=== PATIENT | male | born 1940 | race Caucasian/White ===

== ENCOUNTER 2017-07-17 00:45 | Inpatient (IN) | payer MEDICARE, SELFPAY ==
[2017-07-17] VITALS (12 sets, daily range): BP systolic 137–164; BP diastolic 69–92; PULSE 86–110; RESP 20–25; TEMP 35.8–37; O2SAT 85–96; BMI 44.6; BMI 43.9
--- NOTE | 2017-07-17 00:59 | XR_ITS ---
XR chest 2V HISTORY: ITS.REASON: SOA ORDERING PHYSICIAN: Armani Mathews MD PATIENT AGE: 77 years COMPARISON: None available FINDINGS: There is cardiomegaly with pulmonary venous congestion and perihilar and lower lobe alveolar opacification consistent with CHF with pulmonary edema and/or pneumonia. There is a small right pleural effusion. Decreased density is present involving the lateral aspect of left ninth rib may be due to a lytic lesion versus artifact from the overlying mixed density within the lungs. Rib detail study suggested when patient can tolerate. Hyperdensity is noted involving the right scapular spine suggesting a blastic focus. Does the patient have a primary cancer? There is some increased density in the left suprahilar region but may be related to overlying vessels. Follow-up is recommended. IMPRESSION: 1. Congestive heart failure with pulmonary edema with bilateral lower lobe alveolar disease which may be due to edema and/or pneumonia and small effusion on the right. 2. Possible metastatic disease with suggestion of a blastic focus of the right scapula superiorly and question of a lytic lesion involving the left ninth rib. 3. Possible left suprahilar mass.
[2017-07-17 01:18] LABS: Basophils % 0.2 % (0.1-2.0); Eosinophils # 0.2 K/mm3 (0.0-0.4); Eosinophils % 2.2 % (0.1-12.0); Hematocrit 37.4 % (42.0-52.0); Hemoglobin 10.8 g/dL (14.1-18.0); Lymphocytes # 0.9 K/mm3 (0.7-4.5); Lymphocytes % 9.6 K/mm3 (10-50); Mean Corpuscular HGB Conc 28.8 g/dL (31.8-35.4); Mean Corpuscular Hemoglobin 22.6 pg (27.0-31.2); Mean Corpuscular Volume 78.5 fl (80-94); Mean Platelet Volume 8.4 fl (7.4-10.4); Monocytes # 0.4 K/mm3 (0.1-1.0); Monocytes % 4.3 % (1.7-9.3); Neutrophils # 7.5 K/mm3 (1.8-7.8); Neutrophils % 83.8 % (37.0-80.0); Platelet Count 270 K/mm3 (142-424); Red Blood Count 4.76 M/mm3 (4.60-6.20); Red Cell Distribution Width 16.2 % (11.5-17.5); White Blood Count 8.9 K/mm3 (4.8-10.8)
[2017-07-17 01:29] LABS: Alanine Aminotransferase 20 U/L (12-78); Albumin Level 3.4 gm/dL (3.4-5.0); Albumin/Globulin Ratio 0.6 (1.1-1.8); Alkaline Phosphatase 90 U/L (46-116); Anion Gap 7.7 mEq/L (5-15); Aspartate Amino Transferase 11 U/L (15-37); Bilirubin,Total 0.4 mg/dL (0.2-1.0); Blood Urea Nitrogen 25 mg/dL (7-18); Calcium 9.1 mg/dL (8.5-10.1); Carbon Dioxide 32 mmol/L (21.0-32.0); Chloride 99 mmol/L (98-107); Creatinine Clearance Estimated 36 mL/min (0-300); Creatinine,Serum 1.73 mg/dL (0.70-1.30); Estimated Glomerular Filt Rate 39 ml/min (>60); GFR (African American) 47 ML/MIN (>60); Globulin 5.4 gm/dl (1.3-3.2); Glucose 277 mg/dL (74-106); Potassium 4.7 mmoL/L (3.5-5.1); Sodium 134 mmol/L (136-145); Total Protein,Serum 8.8 gm/dL (6.4-8.2)
[2017-07-17 01:34] LABS: Lactic Acid 2.2 mmol/L (0.4-2.0)
[2017-07-17 01:35] LABS: Reflex Lactic Add Lactic Reflex
[2017-07-17 01:42] LABS: CKMB Relative Index 2.4 U/L (0-4.0); Creatine Kinase 133 U/L (39-308); Creatine Kinase MB 3.2 mg/ml (0.0-3.6); Troponin I 0.03 ng/ml (0.00-0.06)
--- NOTE | 2017-07-17 02:28 | HMH.EDSOB ---
ED Disposition Clinical Impression: Bronchitis, Renal insufficiency Congestive heart failure Qualifiers: Congestive heart failure type: unspecified Congestive heart failure chronicity: acute on chronic Qualified Code(s): I50.9 - Heart failure, unspecified Diabetes mellitus Qualifiers: Diabetes mellitus type: type 2 Diabetes mellitus complication status: with unspecified complications Diabetes mellitus mcc insulin use: unspecified terminal clerk insulin use status Qualified Code(s): E11.8 - Type 2 diabetes mellitus with unspecified complications Disposition: Admitted as Observation Condition on Discharge: Good Referrals: Lenore Holt APRN [Primary Care Provider] - - Critical Care Critical Care Time: No Attestation: On 07/17/17, the high probability of a clinically significant, sudden or life threatening deterioration of the following system(s) required my full and direct attention, intervention and personal management. The time I documented below is in addition to time spent performing reported procedures but includes the following listed in this critical care notation. Medical Decision Making - Medical Records Medical records reviewed: Yes: I reviewed the patient's medical records. Vital Signs: 07/17/17 00:48 Temperature 97.7 F Temperature Source Oral Pulse Rate [Brachial] 98 H Respiratory Rate 25 H Blood Pressure [Left Arm] 160/83 Blood Pressure Mean [Left Arm] 108 Blood Pressure Source [Left Arm] Automatic Cuff Blood Pressure Position [Left Arm] Sitting 02 Sat by Pulse Oximetry 85 L Oxygen Flow Rate (LPM) 0 - Lab Data Lab results reviewed: Yes: I reviewed the patient's lab results. Lab Results 07/17/17 01:10: WBC 8.9, RBC 4.76, Hgb 10.8 L, Hct 37.4 L, MCV 78.5 L, MCH 22.6 L, MCHC 28.8 L, RDW 16.2, Plt Count 270, MPV 8.4, Neut % (Auto) 83.8 H, Lymph % (Auto) 9.6 L, [place] % (Auto) 4.3, Eos % (Auto) 2.2, Baso % (Auto) 0.2, Neut # (Auto) 7.5, Lymph # (Auto) 0.9, [place]hen[place] # (Auto) 0.4, Eos # (Auto) 0.2, Baso # (Auto) 0.0 07/17/17 01:10: Sodium 134 L, Potassium 4.7, Chloride 99, Carbon Dioxide 32, Anion Gap 7.7, BUN 25 H, Creatinine 1.73 H, Estimated Creat Clear 36, Estimated GFR 39 L, Est GFR ( Amer) 47 L, Glucose 277 H, Calcium 9.1, Total Bilirubin 0.4, AST 11 L, ALT 20, Alkaline Phosphatase 90, Total Protein 8.8 H, Albumin 3.4, Globulin 5.4 H, Albumin/Globulin Ratio 0.6 L 07/17/17 01:10: Lactic Acid 2.2 H 07/17/17 01:10: Total Creatine Kinase 133, CK-MB (CK-2) 3.2, CK-MB (CK-2) Rel Index 2.4, Troponin I 0.03 07/17/17 01:12: B-Natriuretic Peptide 217 H 07/17/17 01:12: TSH 7.68 H, Thyroxine (T4) 6.9 07/17/17 02:32: O2 % 32% nc, ABG pH 7.37, ABG pCO2 49.0 H, ABG pO2 68.3 L, ABG HCO3 27.9 H, ABG Total CO2 29.5 H, ABG O2 Saturation 93, ABG Base Excess 2.7 H, Trace Test Acceptable Result diagrams: 07/17/17 01:10 07/17/17 01:10 Orders (Tests/Meds): ED MEDICATIONS Discontinued Medications Generic Name Dose Route Start Last Admin Trade Name Freq PRN Reason Stop Dose Admin Furosemide 40 mg 07/17/17 02:40 07/17/17 02:42 Lasix 40mg/4ml Vial IV 07/17/17 02:41 40 mg ONCE ONE Administration ORDERS Category Date Time Status XR chest 2V Stat Exams 07/17/17 00:59 Taken Blood Culture Stat Micro 07/17/17 01:07 Ordered 12-lead EKG Request [ECG Request by /Rakel] Stat Y 07/17/17 00:59 Ordered - Radiology Data #1 Image(s): Chest Image Reviewed: Yes I reviewed the patient's radiology image Preliminary Findings: Abnormal (chf/bilat infl) - ECG Data Tracing #1 I reviewed this ECG and interpreted as documented below: Ischemic changes: non-specific ST-T wave changes - Physician Consults Physician Consulted: radha Reason -: Admission - Kehinde Inquiry Pt receiving controlled substance: No Resp/SOB HPI - General Chief Complaint: Shortness of Breath/Dyspnea Stated Complaint: SOA Time Seen by Provider: 07/17/17 02:28 Mode of Arrival: Wheelchair Limitatio
--- NOTE | 2017-07-17 02:31 | ED_ITS ---
ED Disposition Clinical Impression: Bronchitis, Renal insufficiency Congestive heart failure Qualifiers: Congestive heart failure type: unspecified Congestive heart failure chronicity : acute on chronic Qualified Code(s): I50.9 - Heart failure, unspecified Diabetes mellitus Qualifiers: Diabetes mellitus type: type 2 Diabetes mellitus complication status: with unspecified complications Diabetes mellitus prison insulin use: unspecified prison insulin use status Qualified Code(s): E11.8 - Type 2 diabetes mellitus with unspecified complications Disposition: Admitted as Observation Condition on Discharge: Good Referrals: Lenore Holt APRN [Primary Care Provider] - - Critical Care Critical Care Time: No Attestation: On 07/17/17, the high probability of a clinically significant, sudden or life threatening deterioration of the following system(s) required my full and direct attention, intervention and personal management. The time I documented below is in addition to time spent performing reported procedures but includes the following listed in this critical care notation. Medical Decision Making - Medical Records Medical records reviewed: Yes: I reviewed the patient's medical records. Vital Signs: 07/17/17 00:48 Temperature 97.7 F Temperature Source Oral Pulse Rate [Brachial] 98 H Respiratory Rate 25 H Blood Pressure [Left Arm] 160/83 Blood Pressure Mean [Left Arm] 108 Blood Pressure Source [Left Arm] Automatic Cuff Blood Pressure Position [Left Arm] Sitting 02 Sat by Pulse Oximetry 85 L Oxygen Flow Rate (LPM) 0 - Lab Data Lab results reviewed: Yes: I reviewed the patient's lab results. Lab Results 07/17/17 01:10: WBC 8.9, RBC 4.76, Hgb 10.8 L, Hct 37.4 L, MCV 78.5 L, MCH 22.6 L, MCHC 28.8 L, RDW 16.2, Plt Count 270, MPV 8.4, Neut % (Auto) 83.8 H, Lymph % (Auto) 9.6 L, [place] % (Auto) 4.3, Eos % (Auto) 2.2, Baso % (Auto) 0.2, Neut # ( Auto) 7.5, Lymph # (Auto) 0.9, [place] # (Auto) 0.4, Eos # (Auto) 0.2, Baso # (Auto ) 0.0 07/17/17 01:10: Sodium 134 L, Potassium 4.7, Chloride 99, Carbon Dioxide 32, Anion Gap 7.7, BUN 25 H, Creatinine 1.73 H, Estimated Creat Clear 36, Estimated GFR 39 L, Est GFR ( Amer) 47 L, Glucose 277 H, Calcium 9.1, Total Bilirubin 0.4, AST 11 L, ALT 20, Alkaline Phosphatase 90, Total Protein 8.8 H, Albumin 3.4, Globulin 5.4 H, Albumin/Globulin Ratio 0.6 L 07/17/17 01:10: Lactic Acid 2.2 H 07/17/17 01:10: Total Creatine Kinase 133, CK-MB (CK-2) 3.2, CK-MB (CK-2) Rel Index 2.4, Troponin I 0.03 07/17/17 01:12: B-Natriuretic Peptide 217 H 07/17/17 01:12: TSH 7.68 H, Thyroxine (T4) 6.9 07/17/17 02:32: O2 % 32% nc, ABG pH 7.37, ABG pCO2 49.0 H, ABG pO2 68.3 L, ABG HCO3 27.9 H, ABG Total CO2 29.5 H, ABG O2 Saturation 93, ABG Base Excess 2.7 H, Trace Test Acceptable Result diagrams: 07/17/17 01:10 07/17/17 01:10 Orders (Tests/Meds): ED MEDICATIONS Discontinued Medications Generic Name Dose Route Start Last Admin Trade Name Freq PRN Reason Stop Dose Admin Furosemide 40 mg 07/17/17 02:40 07/17/17 02:42 Lasix 40mg/4ml Vial IV 07/17/17 02:41 40 mg ONCE ONE Administration ORDERS Category Date Time Status XR chest 2V Stat Exams 07/17/17 00:59 Taken Blood Culture Stat Micro 07/17/17 01:07 Ordered 12-lead EKG Request [ECG Request by /Rakel] Stat Y 07/17/17 00:59 Ordered
[2017-07-17 02:44] LABS: ABG Base Excess 2.7 mmol/L (-2.4-2.3); ABG HCO3 27.9 mmhg (22.0-26.0); ABG Oxygen Saturation 93 % (90-100); ABG PH 7.37 mmol/L (7.35-7.45); ABG PO2 68.3 mmhg (80-100); ABG TCO2 29.5 mmhg (23-27)
[2017-07-17 02:46] LABS: Allen's Test Acceptable
[2017-07-17 03:05] LABS: T4 (Thyroxine) 6.9 ug/dl (4.7-13.3); Thyroid Stimulating Hormone 7.68 uIU/ml (0.358-3.740)
--- NOTE | 2017-07-17 03:05 | PC.NURSE ---
dr cruz spoke with dr garcia for admission
--- NOTE | 2017-07-17 05:42 | PC.NURSE ---
PT NEW ADMIT FROM ER THIS AM. ON 2L PER NC. PT STATES HE USES OXYGEN AT HOME. LUNGS DIMINISHED THROUGHOUT. PT ALERT AND ORIENTED TIMES 3. [place]. HAS BEEN AT [facility]. PT DID NOT KNOW HOME MEDS AND DID NOT BRING IN HOME MEDS. IS TO BRING IN HOME MEDS THIS AM. NO COMPLAINTS OF PAIN. BLE WITH MULTIPLE ULCERS NOTED.
[2017-07-17 05:50] LABS: Basophils % 0.2 % (0.1-2.0); Eosinophils # 0.1 K/mm3 (0.0-0.4); Eosinophils % 1.1 % (0.1-12.0); Hematocrit 35.5 % (42.0-52.0); Hemoglobin 10.3 g/dL (14.1-18.0); Lymphocytes # 0.7 K/mm3 (0.7-4.5); Lymphocytes % 6.6 K/mm3 (10-50); Mean Corpuscular Hemoglobin 22.9 pg (27.0-31.2); Mean Platelet Volume 8.1 fl (7.4-10.4); Monocytes # 0.4 K/mm3 (0.1-1.0); Monocytes % 3.8 % (1.7-9.3); Neutrophils # 9.2 K/mm3 (1.8-7.8); Neutrophils % 88.3 % (37.0-80.0); Platelet Count 277 K/mm3 (142-424); Red Blood Count 4.49 M/mm3 (4.60-6.20); Red Cell Distribution Width 16.3 % (11.5-17.5); White Blood Count 10.5 K/mm3 (4.8-10.8)
[2017-07-17 05:52] LABS: MANUAL DIFFERENTIAL MANUAL DIFFERENTIAL (MANUAL DIFF)
[2017-07-17 06:00] LABS: Anion Gap 7.7 mEq/L (5-15); Blood Urea Nitrogen 25 mg/dL (7-18); Carbon Dioxide 32 mmol/L (21.0-32.0); Chloride 98 mmol/L (98-107); Chol/HDL Ratio 4.2 (1-3.5); Cholesterol 123 mg/dL (140-200); Creatinine Clearance Estimated 34 mL/min (0-300); Creatinine,Serum 1.82 mg/dL (0.70-1.30); Estimated Glomerular Filt Rate 36 ml/min (>60); GFR (African American) 44 ML/MIN (>60); Glucose 277 mg/dL (74-106); HDL Cholesterol 29 mg/dL (27-67); LDL Cholesterol 65 mg/dL (0-130); Potassium 4.7 mmoL/L (3.5-5.1); Sodium 133 mmol/L (136-145); Triglycerides 147 mg/dL (30-200); VLDL Cholesterol 29 mg/dL (0-40)
[2017-07-17 06:01] LABS: Lactic Acid Follow Up (RFLX 1) 2.1 (0.4-2.0)
[2017-07-17 06:02] LABS: Reflex Lactic (2 hrs) Add Lactic Reflex
--- NOTE | 2017-07-17 06:52 | CA_ITS ---
PROCEDURE: 2-D M-mode and color Doppler study INDICATIONS FOR THE TEST: Chest pain COPD Heart Murmur Tobacco Smoking Palpitations Fatigue Syncope Edema Hypertension Diabetes MellitusX Rheumatic Fever SOBXDOEXObesityXHyperlipidemiaX Family History HD Additional History CHF TDS OBESITY PT SITTING IN CHAIR UNABLE TO LAY IN BED PATIENT INFORMATION HEIGHT: 68 WEIGHT:289 GENDER: Male B/P:160/83 2-D/M-MODE INTERPRETATION: 2-D MEASUREMENTS OBSERVED VALUES IN CMS Right Ventricular Dimension (RVDd) 1.9 Interventricular Septum (Thickness)(IVsd) 1.3 Left Ventricular Internal Dimensions(LVIDd) 6.4 Left Ventricular Posterior Wall (Thickness)(LVPWd) 1.2 Aortic Root 3.6 Aortic Cusp Separation 1.6 Left Atrial Dimensions (LAD) 4.0 2D 1. Left atrium is qualitatively moderately enlarged, left ventricle is mildly dilated, there is mild concentric left ventricular hypertrophy, visually estimated ejection fraction approximately 40-45%, there appears to be hypokinesis involving the inferior and mid to distal septum wall. Endocardial surfaces are poorly visualized. 2. The right atrium and right ventricle are mildly enlarged with normal contractility. 3. The aortic valve is minimally thickened and calcified leaflet continue to display mobility. 4. The mitral and tricuspid valve leaflets are minimally thickened. 5. The pulmonic valve is poorly visualized. 6. No significant pericardial effusion noted. DOPPLER INTERROGATION: Doppler interrogation of the aortic, mitral and tricuspid valvular presence of mild mitral and tricuspid regurgitation, tricuspid and jet velocity is insufficient for calculation of the right ventricular systolic pressure, grade 1 diastolic dysfunction seen with tissue Doppler evidence of raised left atrial pressure, inferior vena cava is dilated without significant inspiratory collapse. CONCLUSION: 1. Technically difficult study because of the patient's factor and poor acrostic Windows. 2. Moderately enlarged atrium, mildly dilated left ventricle, mild concentric left ventricular hypertrophy, visually estimated ejection fraction 40-45% with multiple segmental wall motion abnormality described above. Grade 1 diastolic dysfunction seen with tissue Doppler evidence of raised left atrial pressure, inferior vena cava is dilated without significant central collapse. 3. Mildly enlarged right ventricle with normal contractility. 4. Mild mitral and tricuspid regurgitation 5. No significant pericardial effusion noted.
[2017-07-17 07:07] LABS: POC Glucose,Bedside 275 mg/dL
--- NOTE | 2017-07-17 07:26 | HMH.PHAVTE ---
[facility] Pharmacy VTE Monitoring - Patient Demographics Admission date: 07/17/17 Report Date: 07/17/17 Time: 07:26 Allergies/Adverse Reactions: No Known Allergies Allergy (Verified 07/17/17 00:55) Height: 1.73 m Weight: 131.23 kg Patient Problems: Current Active Problems Congestive heart failure (Acute) Bronchitis (Acute) Renal insufficiency (Acute) Diabetes mellitus (Acute) - VTE Risk Labs: VTE Related Lab Results Hgb 10.3 g/dL (14.1-18.0) L 07/17/17 05:15 Hct 35.5 % (42.0-52.0) L 07/17/17 05:15 Plt Count 277 K/mm3 (142-424) 07/17/17 05:15 BUN 25 mg/dL (7-18) H 07/17/17 05:15 Creatinine 1.82 mg/dL (0.70-1.30) H 07/17/17 05:15 Estimated Creat Clear 34 mL/min (0-300) 07/17/17 05:15 Was VTE Risk Assessment Performed: Yes VTE Score: 5 VTE Risk Level: Low Risk - Prophylaxis VTE Prophylaxis Ordered?: Yes Types of VTE Prophylaxis: TEDS Knee High Location of Applied Device: Bilateral Lower Extremeties - VTE Diagnosis Confirmed Treatment or plan recommended: Continue Current Treatment
[2017-07-17 07:53] LABS: Lactic Acid Follow up (RFLX 2) 1.6 (0.4-2.0)
--- NOTE | 2017-07-17 08:41 | PC.NURSE ---
DR. HARE PERFOMING AM ROUNDS WITH THE PATIENT.
--- NOTE | 2017-07-17 08:52 | HMH.HP ---
*Admission Date: 07/17/17 <Viji Mederos 07/17/17 09:11> *Chief complaint: SOA <Viji Mederos 07/17/17 09:11> *History of present illness: is a 77-year-old male patient of Lenore Holt who has a history of HTN, diabetes, and hyperlipidemia. He states back in April he had pneumonia twice and was hospitalized at [facility]. Approximately a week ago he began getting short of air. He had extreme dyspnea on exertion. This was worse the past 3 days and he was worried he may have pneumonia again, therefore he presented to the emergency room. A chest x-ray in the ER showed CHF with pulmonary edema and bilateral lobe alveolar disease which could possibly due to edema or pneumonia. There was also a question of metastatic disease to the right scapula and the ninth rib as well as a left suprahilar mass. He was admitted for further evaluation and treatment. <Viji Mederos 07/17/17 09:11> [facility] History Medical History: Reports:: Diabetes Mellitus Type 2, Hyperlipidemia, Hypertension <Viji Mederos 07/17/17 09:11> Other Surgeries: Yes: Appendectomy <Viji Mederos 07/17/17 09:11> - *Social History Educational Level: Attended High School <Viji Mederos 07/17/17 09:11> Smoking Status: Never smoker <Viji Mederos 07/17/17 09:11> Alcohol Intake: never <Viji Mederos 07/17/17 09:11> Occupational Status: other <Viji Mederos 07/17/17 09:11> Household Members: spouse <Viji Mederos 07/17/17 09:11> - Psychiatric History Expresses thoughts of harming self/others: None <Viji Mederos 07/17/17 09:11> Suicide Plan Description: No Plan <Viji Mederos 07/17/17 09:11> *Family Hx:: Coronary Artery Disease, Heart Attack, Hyperlipidemia, Hypertension, Stroke <Viji Mederos 07/17/17 09:11> Review of Systems - Constitutional Reports fatigue, Reports weakness <Viji Mederos 07/17/17 09:11> - Eyes Denies blurry vision, Denies double vision <Viji Mederos 07/17/17 09:11> - ENT Denies nasal congestion, Denies sore throat <Viji Mederos 07/17/17 09:11> - *Cardiovascular Reports shortness of breath, Reports shortness of breath with activity, Reports leg swelling, Denies chest pain, Denies irregular heart rhythm <Viji Mederos 07/17/17 09:11> - *Respiratory Reports cough, Reports shortness of breath, Reports shortness of breath with activity <Viji Mederos 07/17/17 09:11> - *Gastrointestinal Denies abdominal pain, Denies constipation, Denies nausea, Denies vomiting <Viji Mederos 07/17/17 09:11> - *Genitourinary Denies difficulty urinating, Denies painful urination <Viji Mederos 07/17/17 09:11> - *Musculoskeletal Denies joint pain, Denies back pain, Denies body aches <Viji Mederos 07/17/17 09:11> - *Neurologic Denies headache(s), Denies seizure-like activity, Denies dizziness <Viji Mederos 07/17/17 09:11> Meds Home Medications Medication Instructions Recorded Confirmed Type Amlodipine Besylate [Norvasc 10mg 10 mg PO DAILY 07/17/17 07/17/17 History tablet] Cyclobenzaprine HCl 10 mg PO BID 07/17/17 07/17/17 History [Cyclobenzaprine 10mg Tab] Furosemide [Furosemide 20mg Tab] 20 mg PO TID 07/17/17 07/17/17 History Gabapentin [Neurontin 600mg 600 mg PO BID 07/17/17 07/17/17 History tablet] Indomethacin [Indocin 25mg capsule] 25 mg PO BID 07/17/17 07/17/17 History Insulin NPH Hum/Reg Insulin Hm 50 unit SQ BID 07/17/17 07/17/17 History [Novolin 70-30 100 Unit/ml Vial] Levothyroxine Sodium 50 mcg PO DAILY 07/17/17 07/17/17 History [Levothyroxine 50mcg (0.05mg) Tab] Metformin HCl 1,000 mg PO BID 07/17/17 07/17/17 History Methocarbamol [Methocarbamol 500mg 1,000 mg PO BID 07/17/17 07/17/17 History Tablet] Metoprolol Tartrate [Lopressor 25 mg PO BID 07/17/17 07/17/17 History 25mg tablet] Montelukast Sodium [Singulair] 10 mg PO HS 07/17/17 07/17/17 History Omeprazole [Omeprazole 20mg 20 mg PO DAILY 07/17/17 07/17/17 History Cap
--- NOTE | 2017-07-17 08:55 | P.HP_ITS ---
*Admission Date: 07/17/17 <Viji Mederos 07/17/17 09:11> *Chief complaint: SOA <Viji Mederos 07/17/17 09:11> *History of present illness: is a 77-year-old male patient of Lenore Holt who has a history of HTN , diabetes, and hyperlipidemia. He states back in April he had pneumonia twice and was hospitalized at [facility]. Approximately a week ago he began getting short of air. He had extreme dyspnea on exertion. This was worse the past 3 days and he was worried he may have pneumonia again, therefore he presented to the emergency room. A chest x-ray in the ER showed CHF with pulmonary edema and bilateral lobe alveolar disease which could possibly due to edema or pneumonia. There was also a question of metastatic disease to the right scapula and the ninth rib as well as a left suprahilar mass. He was admitted for further evaluation and treatment. <Viji Mederos 07/17/17 09:11> [facility] History Medical History: Reports:: Diabetes Mellitus Type 2, Hyperlipidemia, Hypertension <Viji Mederos 07/17/17 09:11> Other Surgeries: Yes: Appendectomy <Viji Mederos 07/17/17 09:11> - *Social History Educational Level: Attended High School <Viji Mederos 07/17/17 09:11> Smoking Status: Never smoker <Viji Mederos 07/17/17 09:11> Alcohol Intake: never <Viji Mederos 07/17/17 09:11> Occupational Status: other <Viji Mederos 07/17/17 09:11> Household Members: spouse <Viji Mederos 07/17/17 09:11> - Psychiatric History Expresses thoughts of harming self/others: None <Viji Mederos 07/17/17 09: 11> Suicide Plan Description: No Plan <Viji Mederos 07/17/17 09:11> *Family Hx:: Coronary Artery Disease, Heart Attack, Hyperlipidemia, Hypertension , Stroke <Viji Mederos 07/17/17 09:11> Review of Systems - Constitutional Reports fatigue, Reports weakness <Viji Mederos 07/17/17 09:11> - Eyes Denies blurry vision, Denies double vision <Viji Mederos 07/17/17 09:11> - ENT Denies nasal congestion, Denies sore throat <Viji Mederos 07/17/17 09:11> - *Cardiovascular Reports shortness of breath, Reports shortness of breath with activity, Reports leg swelling, Denies chest pain, Denies irregular heart rhythm <Viji Mederos 07/17/17 09:11> - *Respiratory Reports cough, Reports shortness of breath, Reports shortness of breath with activity <Viji Mederos 07/17/17 09:11> - *Gastrointestinal Denies abdominal pain, Denies constipation, Denies nausea, Denies vomiting < Viji Mederos 07/17/17 09:11> - *Genitourinary Denies difficulty urinating, Denies painful urination <Viji Mederos 09:11> - *Musculoskeletal Denies joint pain, Denies back pain, Denies body aches <Viji Mederos 09:11> - *Neurologic Denies headache(s), Denies seizure-like activity, Denies dizziness <Viji Mederos 07/17/17 09:11> Meds Home Medications Medication Instructions Recorded Confirmed Type Amlodipine Besylate [Norvasc 10mg 10 mg PO DAILY 07/17/17 07/17/17 History tablet] Cyclobenzaprine HCl 10 mg PO BID 07/17/17 07/17/17 History [Cyclobenzaprine 10mg Tab] Furosemide [Furosemide 20mg Tab] 20 mg PO TID 07/17/17 07/17/17 History Gabapentin [Neurontin 600mg 600 mg PO BID 07/17/17 07/17/17 History tablet] Indomethacin [Indocin 25mg capsule] 25 mg PO BID 07/17/17 07/17/17 History Insulin NPH Hum/Reg Insulin Hm 50 unit SQ BID 07/17/17 07/17/17 History [Novolin 70-30 100 Unit/ml Vial] Levothyroxine Sodium 50 mcg PO DAILY 07/17/17 0
[2017-07-17 14:38] LABS: POC Glucose,Bedside 274 mg/dL
[2017-07-17 14:42] LABS: Eosinophils % 1 % (0-3); Lymphocytes % 5 % (10-50); Monocytes % 1 % (2-9); Neutrophils % 93 % (42-76); Total Cells Counted 100
[2017-07-17 14:43] LABS: Hypochromasia 1+; Platelet Estimate Normal
--- NOTE | 2017-07-17 17:14 | HMH.NBBLANK ---
H Wayne Blank Note Date: 07/17/17 Time: 17:14 Narrative:: Brief Cardiology Consult Note 77 yo gentleman admitted with shortness of breath found to have elevated BNP, abnormal CXR no prior history of CHF or CAD. PE: Consistent with CHF. Impression: 1. CHF questionable etiology - with ejection fraction of 40-45% with inferior wall hypokinesis likely 2. Possible ischemic heart disease 3. COPD/Pneumonia 4. Possible lung mass and metastatic disease 5. DM 6. Obesity 7. Renal insufficiency Recommend: 1. Discontinue Norvasc 2. Continue diuretics 3. Once respiratory status improves obtain Lexiscan Myoview to assess ischemic burden. 4. CT chest without contrast for hilar lung mass on CXR Thank you very much for this consult. JUAN De León MD
--- NOTE | 2017-07-17 17:49 | PC.NURSE ---
PATIENT NOW LEAVING OFF THE UNIT FOR CT OF CHEST WITH OUT CONTRAST.
--- NOTE | 2017-07-17 17:50 | PC.NURSE ---
RADIOLOGY WAS UNSUCCESSFUL IN PERFORMING A CT OF CHEST W/O CONTRAST DUE TO THE PATIENT UNABLE TO LYE FLAT OR TO THE SIDE, THEY HAVE RETURNED HIM TO HIS ROOM. THE PLAN REMAINS FOR THE PATIENT TO HAVE A LEXISCAN IN THE AM FOR THE CONDITION OF A LUNG MASS IN QUESTION.
[2017-07-17 18:41] LABS: POC Glucose,Bedside 356 mg/dL
[2017-07-18] VITALS (21 sets, daily range): BP systolic 111–187; BP diastolic 52–98; PULSE 89–104; RESP 18–24; TEMP 36.7–37.3; O2SAT 88–97; BMI 42.4
--- NOTE | 2017-07-18 | IR_ITS ---
CARDIAC CATHETERIZATION DATE OF CATHETERIZATION:07/18/2017 2:17 PM PROCEDURES: 1. Left heart catheterization 2. Left ventriculogram 3. Selective coronary angiogram 4. Drug-eluting stent deployment to the proximal LAD INDICATION FOR TEST: 1. Coronary artery disease 2. Systolic congestive heart failure 3. Refusal of noninvasive testing Informed consent was obtained prior to the procedure. COMPLICATIONS: None ESTIMATED BLOOD LOSS: Less than 10 ml. TECHNIQUE: One percent lidocaine used to anesthetize the right anterior aspect of the wrist. The right radial artery was accessed via the Seldinger technique. A 6 Nauruan sheath was placed in the right radial artery. 2.5 mg of verapamil, 800 mcg of nitroglycerin and 5000 U Heparin were given through the arterial sheath. The trap catheter was also used to perform left heart catheterization left ventriculogram and selective coronary angiogram. At the end of the diagnostic angiogram and additional 8000 units of heparin was administered intravenously giving the ACT out of range. And Ikari left guide catheter was used intubate the left main artery and the BMW wire was used to traverse the stenosis. A 3.5 x 34 mm resolute [place] stent was deployed at 16 aravind reducing the severe stenosis to 0%. Excellent angiographic results were obtained before and after the procedure. CHARLIE-3 flow was present before and after the procedure. At the end of the procedure the apparatus was removed the sheath was removed good hemostasis was achieved using TR banding patient was transferred to the postop holding area in stable condition ANGIOGRAPHIC RESULTS: 1. The left main artery normal 2. The left anterior descending artery has a proximal 80-90% stenosis followed by an additional 50% stenosis. The mid LAD has 30% stenoses 3. The circumflex artery is a large nondominant vessel with a proximal 20% stenosis and mild luminal irregularities in a very large first obtuse marginal artery 4. The right coronary artery is a dominant vessel and has mid vessel 30% nonflow limiting stenoses 5. The CASTRO ventriculogram reveals severe left ventricular dilatation with severely reduced ejection fraction estimated at 25% 6. The left ventricular end-diastolic pressure severe to critically elevated at 50 mmHg IMPRESSION: 1. Severe proximal LAD disease 2. Successful stenting of the proximal LAD severe disease reduced to 0% with 1 drug-eluting stent 3. Severe left ventricular dilatation with severely reduced ejection fraction and severe to critically elevated LVEDP PLAN: 1. Brilinta and aspirin 2. Standard therapy for systolic heart failure 3. Patient requires significant diuresis 4. LDL less than 55 5. Cardiac rehabilitation 6. Avoidance of tobacco products 7. Avoid IV fluids at this point given patient's severe fluid overload
[2017-07-18 02:23] LABS: POC Glucose,Bedside 180 mg/dL
--- NOTE | 2017-07-18 05:53 | PC.NURSE ---
NOTIFIED MD ON EVENING ROUNDS (AT 1949) THAT PT HAD C/O PAIN IN BACK AND CT SCAN WAS UNOBTAINABLE TODAY R/T C/O BACK PAIN AND INABILITY TO LIE FLAT/ON SIDE FOR CT SCAN, NO PAIN MEDICATION NOTED ON AUG PER DAY SHIFT REPORT, TOLD MD PAIN MEDICATION TAKEN AT HOME PER PT MED LIST. MD ORDERED PRN PAIN MEDS PER AUG. ON REASSESSMENT PT STATES THAT HAS HELPED ME AND EVEN RESTING WITH EYES CLOSED. ON RN FIRST ROUND, PT WAS ADMINISTERED PAIN MEDICATION R/T C/O PAIN IN BACK AND WAS ENCOURAGED TO ATTEMPT TO LIE SUPINE OR ON SIDE. PT REFUSED TO LIE FLAT STATING I CAN'T IT HURTS WAY TOO MUCH. ON 499 ROUND PT ADMINISTERED PRN PAIN MEDICATION AND RN INSTRUCTED IMPORTANCE FOR ATTEMPTING TO LIE FLAT/ON SIDE FOR CT SCAN THAT WAS SUPPOSED TO BE OBTAINED FOR DAY SHIFT, RN STATED I WILL GIVE YOU THIS PAIN PILL TO PREMEDICATE PRIOR TO LYING FLAT. APPROXIMATELY 30 MIN FOLLOWING ADMINISTRATION, PT WAS SITTING IN RECLINER, NURSING STAFF ASSISTED WITH LYING HEAD OF RECLINER BACK AND ELEVATING FOOT REST OF RECLINER, PT ABLE TO SLEEP WHILE LYING IN RECLINER. RN THEN CALLED RADIOLOGY IN ATTEMPTS TO PROCEED WITH CT SCAN W/O CONTRAST. RADIOLOGY STATED LET ME CALL YOU BACK. SINUS TACH/NSR NOTED PER PAC'S PER ELECTRONICS SPECIALIST. BLE NOTED WITH TRACE EDEMA. 2LNC TOLERATED WELL T/O SHIFT. NO C/O SOA. STILLAGUAMISH NOTED. VSS. WILL CONTINUE TO MONITOR.
[2017-07-18 06:43] LABS: POC Glucose,Bedside 195 mg/dL
[2017-07-18 07:49] LABS: Basophils % 0.1 % (0.1-2.0); Eosinophils # 0.2 K/mm3 (0.0-0.4); Eosinophils % 2.3 % (0.1-12.0); Hematocrit 33.5 % (42.0-52.0); Hemoglobin 9.7 g/dL (14.1-18.0); Lymphocytes % 13.2 K/mm3 (10-50); Mean Corpuscular Hemoglobin 22.5 pg (27.0-31.2); Mean Corpuscular Volume 77.5 fl (80-94); Mean Platelet Volume 7.7 fl (7.4-10.4); Monocytes # 0.4 K/mm3 (0.1-1.0); Monocytes % 5.4 % (1.7-9.3); Neutrophils # 5.8 K/mm3 (1.8-7.8); Platelet Count 248 K/mm3 (142-424); Red Blood Count 4.32 M/mm3 (4.60-6.20); Red Cell Distribution Width 16.2 % (11.5-17.5); White Blood Count 7.4 K/mm3 (4.8-10.8)
[2017-07-18 08:11] LABS: Alanine Aminotransferase 13 U/L (12-78); Albumin/Globulin Ratio 0.6 (1.1-1.8); Alkaline Phosphatase 79 U/L (46-116); Anion Gap 11.2 mEq/L (5-15); Aspartate Amino Transferase 12 U/L (15-37); Bilirubin,Total 0.4 mg/dL (0.2-1.0); Blood Urea Nitrogen 18 mg/dL (7-18); Calcium 8.8 mg/dL (8.5-10.1); Carbon Dioxide 32 mmol/L (21.0-32.0); Chloride 97 mmol/L (98-107); Creatinine Clearance Estimated 39 mL/min (0-300); Creatinine,Serum 1.57 mg/dL (0.70-1.30); Estimated Glomerular Filt Rate 43 ml/min (>60); GFR (African American) 52 ML/MIN (>60); Globulin 5.1 gm/dl (1.3-3.2); Glucose 194 mg/dL (74-106); Potassium 4.2 mmoL/L (3.5-5.1); Sodium 136 mmol/L (136-145); Total Protein,Serum 8.1 gm/dL (6.4-8.2)
--- NOTE | 2017-07-18 09:20 | HMH.ACPN2 ---
Internal Medicine - PN: Subj *Date: 07/18/17 *Time: 09:20 Interval history: Patient reports having back pain and shortness of breath and being unable to lay flat for CT scan yesterday. Exam Vital signs and Labs for Last 24 Hours: Temp Pulse Resp BP Pulse Ox 98.9 F 104 H 20 122/52 92 L 07/18/17 04:00 07/18/17 04:00 07/18/17 04:00 07/18/17 04:00 07/18/17 04:00 Laboratory Results - last 24 hr 07/17/17 05:15: Total Counted 100, Neutrophils % (Manual) 93 H, Lymphocytes % (Manual) 5 L, Monocytes % (Manual) 1 L, Eosinophils % (Manual) 1, Platelet Estimate Normal, Hypochromasia 1+ 07/17/17 11:23: POC Glucose 274 07/17/17 18:02: POC Glucose 356 07/17/17 21:49: POC Glucose 180 07/18/17 06:30: POC Glucose 195 07/18/17 07:30: WBC 7.4 D, RBC 4.32 L, Hgb 9.7 L, Hct 33.5 L, MCV 77.5 L, MCH 22.5 L, MCHC 29.0 L, RDW 16.2, Plt Count 248, MPV 7.7, Neut % (Auto) 79.0, Lymph % (Auto) 13.2, Person % (Auto) 5.4, Eos % (Auto) 2.3, Baso % (Auto) 0.1, Neut # (Auto) 5.8, Lymph # (Auto) 1.0, Person # (Auto) 0.4, Eos # (Auto) 0.2, Baso # (Auto) 0.0 07/18/17 07:30: Sodium 136, Potassium 4.2, Chloride 97 L, Carbon Dioxide 32, Anion Gap 11.2, BUN 18 D, Creatinine 1.57 H, Estimated Creat Clear 39, Estimated GFR 43 L, Est GFR ( Amer) 52 L, Glucose 194 H, Calcium 8.8, Total Bilirubin 0.4, AST 12 L, ALT 13 D, Alkaline Phosphatase 79, Total Protein 8.1, Albumin 3.0 L D, Globulin 5.1 H, Albumin/Globulin Ratio 0.6 L Vital Signs Temp Pulse Pulse Pulse Resp BP Pulse Ox 07/18/17 04:00 98.9 F 104 H 20 122/52 92 L 07/18/17 00:00 90 07/17/17 23:10 93 L 07/17/17 20:00 96.4 F L 110 H 102 H 20 146/69 92 L 07/17/17 16:00 101 H 07/17/17 15:44 98.2 F 86 20 137/70 94 L 07/17/17 11:48 98.6 F 86 20 142/78 96 Intake and Output 07/17/17 07/18/17 07/18/17 19:59 03:59 11:59 Other: Number of Voids 4 Weight 280 lb Patient Weight 07/18/17 11:59 Weight 280 lb I & O for Last 24 hours: Intake & Output 07/15/17 07/16/17 07/17/17 07/18/17 11:59 11:59 11:59 11:59 Intake Total 1560 / 1560 Output Total 400 / 400 Balance 1160 / 1160 Weight 289 lb 5 oz 280 lb - Constitutional no acute distress - *Routine Respiratory Exam Present: decreased breath sounds (in the bases) - *Routine Cardiovascular Exam Present: RRR Assessment and Plan (1) Bronchitis Current visit: Yes Status: Acute Category: Medical Code(s): J40 - Bronchitis, not specified as acute or chronic (2) Congestive heart failure Current visit: Yes Status: Acute Qualifiers: Congestive heart failure type: unspecified Congestive heart failure chronicity: acute on chronic Qualified Code(s): I50.9 - Heart failure, unspecified Category: Medical Code(s): I50.9 - Heart failure, unspecified (3) Lung mass Current visit: Yes Status: Acute Category: Medical Code(s): R91.8 - Other nonspecific abnormal finding of lung field (4) Renal insufficiency Current visit: Yes Status: Acute Category: Medical Code(s): N28.9 - Disorder of kidney and ureter, unspecified (5) Diabetes mellitus Current visit: Yes Status: Chronic Qualifiers: Diabetes mellitus type: type 2 Diabetes mellitus complication status: with unspecified complications Diabetes mellitus rat exterminator insulin use: unspecified rat exterminator insulin use status Qualified Code(s): E11.8 - Type 2 diabetes mellitus with unspecified complications Category: Medical Code(s): E11.9 - Type 2 diabetes mellitus without complications (6) Hyperlipidemia Current visit: Yes Status: Chronic Category: Medical Code(s): E78.5 - Hyperlipidemia, unspecified (7) Hypertension Current visit: Yes Status: Chronic Category: Medical Code(s): I10 - Essential (primary) hypertension - Assessment and plan all Dx Assessment and Plan for all problems:: Will increase Lasix dose today, need to get CT to e
--- NOTE | 2017-07-18 09:23 | P.PN_ITS ---
Internal Medicine - PN: Subj *Date: 07/18/17 *Time: 09:20 Interval history: Patient reports having back pain and shortness of breath and being unable to lay flat for CT scan yesterday. Exam Vital signs and Labs for Last 24 Hours: Temp Pulse Resp BP Pulse Ox 98.9 F 104 H 20 122/52 92 L 07/18/17 04:00 07/18/17 04:00 07/18/17 04:00 07/18/17 04:00 07/18/17 04:00 Laboratory Results - last 24 hr 07/17/17 05:15: Total Counted 100, Neutrophils % (Manual) 93 H, Lymphocytes % ( Manual) 5 L, Monocytes % (Manual) 1 L, Eosinophils % (Manual) 1, Platelet Estimate Normal, Hypochromasia 1+ 07/17/17 11:23: POC Glucose 274 07/17/17 18:02: POC Glucose 356 07/17/17 21:49: POC Glucose 180 07/18/17 06:30: POC Glucose 195 07/18/17 07:30: WBC 7.4 D, RBC 4.32 L, Hgb 9.7 L, Hct 33.5 L, MCV 77.5 L, MCH 22.5 L, MCHC 29.0 L, RDW 16.2, Plt Count 248, MPV 7.7, Neut % (Auto) 79.0, Lymph % (Auto) 13.2, Donley % (Auto) 5.4, Eos % (Auto) 2.3, Baso % (Auto) 0.1, Neut # (Auto) 5.8, Lymph # (Auto) 1.0, Donley # (Auto) 0.4, Eos # (Auto) 0.2, Baso # (Auto) 0.0 07/18/17 07:30: Sodium 136, Potassium 4.2, Chloride 97 L, Carbon Dioxide 32, Anion Gap 11.2, BUN 18 D, Creatinine 1.57 H, Estimated Creat Clear 39, Estimated GFR 43 L, Est GFR ( Amer) 52 L, Glucose 194 H, Calcium 8.8, Total Bilirubin 0.4, AST 12 L, ALT 13 D, Alkaline Phosphatase 79, Total Protein 8.1, Albumin 3.0 L D, Globulin 5.1 H, Albumin/Globulin Ratio 0.6 L Vital Signs Temp Pulse Pulse Pulse Resp BP Pulse Ox 07/18/17 04:00 98.9 F 104 H 20 122/52 92 L 07/18/17 00:00 90 07/17/17 23:10 93 L 07/17/17 20:00 96.4 F L 110 H 102 H 20 146/69 92 L 07/17/17 16:00 101 H 07/17/17 15:44 98.2 F 86 20 137/70 94 L 07/17/17 11:48 98.6 F 86 20 142/78 96 Intake and Output 07/17/17 07/18/17 07/18/17 19:59 03:59 11:59 Other: Number of Voids 4 Weight 280 lb Patient Weight 07/18/17 11:59 Weight 280 lb I & O for Last 24 hours: Intake & Output 07/15/17 07/16/17 07/17/17 07/18/17 11:59 11:59 11:59 11:59 Intake Total 1560 / 1560 Output Total 400 / 400 Balance 1160 / 1160 Weight 289 lb 5 oz 280 lb - Constitutional no acute distress - *Routine Respiratory Exam Present: decreased breath sounds (in the bases) - *Routine Cardiovascular Exam Present: RRR Assessment and Plan (1) Bronchitis Current visit: Yes Status: Acute Category: Medical Code(s): J40 - Bronchitis, not specified as acute or chronic (2) Congestive heart failure Current visit: Yes Status: Acute Qualifiers: Congestive heart failure type: unspecified Congestive heart failure chronicity: acute on chronic Qualified Code(s): I50.9 - Heart failure, unspecified Category: Medical Code(s): I50.9 - Heart failure, unspecified (3) Lung mass Current visit: Yes Status: Acute Category: Medical Code(s): R91.8 - Other nonspecific abnormal finding of lung field (4) Renal insufficiency Current visit: Yes Status: Acute Category: Medical Code(s): N28.9 - Disorder of kidney and ureter, unspecified (5) Diabetes mellitus Current visit: Yes Status: Chronic Qualifiers: Diabetes mellitus type: type 2 Diabetes mellitus complication status: with uns
--- NOTE | 2017-07-18 10:13 | HMH.NBBLANK ---
[facility] Blank Note Date: 07/18/17 Time: 10:13 Narrative:: Cardiology progress note: Mr. Ellsworth was unable to have Lexiscan Myoview as well as CAT scan of the chest, he is agreeable for the left heart cath and coronary angiography. He understands the risk and wishes to proceed. He describes no chest pain, shortness of breath and lower extremity edema has improved. He describes no orthopnea PND fever chills nausea vomiting he denied any palpitation dizziness or syncope. Allergies: No known drug allergies. Home Medications Amlodipine Besylate [Norvasc 10mg tablet] 10 mg PO DAILY 07/17/17 [History Confirmed 07/17/17] Cyclobenzaprine HCl [Cyclobenzaprine 10mg Tab] 10 mg PO BID 07/17/17 [History Confirmed 07/17/17] Furosemide [Furosemide 20mg Tab] 20 mg PO BID 07/17/17 [History Confirmed 07/18/17] Gabapentin [Neurontin 600mg tablet] 600 mg PO BID 07/17/17 [History Confirmed 07/17/17] Indomethacin [Indocin 25mg capsule] 25 mg PO BID 07/17/17 [History Confirmed 07/17/17] Insulin NPH Hum/Reg Insulin Hm [Novolin 70-30 100 Unit/ml Vial] 50 unit SQ BID 07/17/17 [History Confirmed 07/17/17] Levothyroxine Sodium [Levothyroxine 50mcg (0.05mg) Tab] 50 mcg PO DAILY 07/17/17 [History Confirmed 07/17/17] Metformin HCl 1,000 mg PO BID 07/17/17 [History Confirmed 07/17/17] Methocarbamol [Methocarbamol 500mg Tablet] 500 mg PO BID 07/17/17 [History Confirmed 07/18/17] Metoprolol Tartrate [Lopressor 25mg tablet] 25 mg PO BID 07/17/17 [History Confirmed 07/17/17] Montelukast Sodium [Singulair] 10 mg PO HS 07/17/17 [History Confirmed 07/17/17] Omeprazole [Omeprazole 20mg Capsule] 20 mg PO DAILY 07/17/17 [History Confirmed 07/17/17] Oxycodone HCl [Oxycodone (IR) 30mg Tab] 30 mg PO Q6HP PRN 07/17/17 [History Confirmed 07/17/17] Potassium Chloride [K-Tab ER 20 mEq] 20 meq PO BID 07/17/17 [History Confirmed 07/17/17] Pravastatin Sodium [Pravachol 20mg Tablet] 20 mg PO HS 07/17/17 [History Confirmed 07/17/17] Umeclidinium Brm/Vilanterol Tr [Anoro Ellipta 62.5-25 Mcg INH] 1 each IH BID 07/17/17 [History Confirmed 07/17/17] metOLazone [metOLazone 2.5mg Tablet] 2.5 mg PO DAILY 07/17/17 [History Confirmed 07/17/17] Aspirin [Aspirin 81mg chewable tab] 81 mg PO DAILY 07/18/17 [History Confirmed 07/18/17] Acetaminophen (Acetaminophen 325mg Tab) 650 mg PO Q4HP PRN PRN Reason: As Needed for Fever or Pain Stop: 08/16/17 03:25 Blood Glucose Test Strips (Fsbs (Bedside Glucose), Results Only !!) 1 each FS ACHS [facility] [place] [place] Stop: 08/16/17 05:59 Last Admin: 07/18/17 06:31 Dose: 1 each Docusate Sodium (Docusate Sodium 100mg Cap) 100 mg PO DAILY [facility] [place] Stop: 08/16/17 08:59 Last Admin: 07/18/17 10:00 Dose: Not Given Gabapentin (Neurontin 600mg Tablet) 600 mg PO BID [facility] [place] Stop: 08/16/17 20:59 Last Admin: 07/18/17 09:50 Dose: 600 mg Azithromycin 500 mg/ Sodium (Chloride) 250 mls @ 250 mls/hr IV Q24H SHAE PRN Reason: Protocol Stop: 08/16/17 20:59 Last Admin: 07/17/17 21:51 Dose: 250 mls/hr Ceftriaxone Sodium 1 gm/ (Sodium Chloride) 50 mls @ 100 mls/hr IV Q24H [facility] [place] Stop: 08/16/17 16:59 Last Admin: 07/17/17 18:31 Dose: 100 mls/hr Sodium Chloride (Sod Chloride 0.9% 1000ml Bag) 1,000 mls @ 50 mls/hr IV .Q20H [facility] [place] Stop: 08/16/17 11:59 Last Admin: 07/18/17 05:04 Dose: 50 mls/hr Insulin Lispro Protam/Lispro Human (Humalog Mix 75/25 3ml Flexpen) 50 unit SQ BIDWM [facility] [place] Stop: 08/16/17 17:29 Last Admin: 07/18/17 06:33 Dose: Not Given Levothyroxine Sodium (Synthroid 50mcg (0.05mg) Tablet) 50 mcg PO DAILY [facility] Stop: 08/17/17 08:59 Last Admin: 07/18/17 09:50 Dose: 50 mcg Metoprolol Tartrate (Lopressor 25mg Tablet) 25 mg PO BID [facility] Stop: 08/16/17 20:59 Last Admin: 07/18/17 09:51 Dose: 25 mg Montelukast Sodium (Singulair 10mg Tablet) 10 mg PO HS [facility] [place] Stop: 08/16/17 20:59 Last Admin: 07/17/17 21:54 Dose: 10 mg Nitroglycerin (Nitroglycerin 1 Inch Oint Udp) 1 gm TD Q6H [facility] Stop: 08/16/17 11:14 Last Admin: 07/18/17 05:04 Dose: 1 gm Ondansetron HCl (Zofran 4mg/2ml Vial) 4
--- NOTE | 2017-07-18 10:21 | P.PN_ITS ---
[facility] [place] Blank Note Date: 07/18/17 Time: 10:13 Narrative:: Cardiology progress note: Mr. Ellsworth was unable to have Lexiscan Myoview as well as CAT scan of the chest , he is agreeable for the left heart cath and coronary angiography. He understands the risk and wishes to proceed. He describes no chest pain, shortness of breath and lower extremity edema has improved. He describes no orthopnea PND fever chills nausea vomiting he denied any palpitation dizziness or syncope. Allergies: No known drug allergies. Home Medications Amlodipine Besylate [Norvasc 10mg tablet] 10 mg PO DAILY 07/17/17 [History Confirmed 07/17/17] Cyclobenzaprine HCl [Cyclobenzaprine 10mg Tab] 10 mg PO BID 07/17/17 [History Confirmed 07/17/17] Furosemide [Furosemide 20mg Tab] 20 mg PO BID 07/17/17 [History Confirmed ] Gabapentin [Neurontin 600mg tablet] 600 mg PO BID 07/17/17 [History Confirmed 07/17/17] Indomethacin [Indocin 25mg capsule] 25 mg PO BID 07/17/17 [History Confirmed ] Insulin NPH Hum/Reg Insulin Hm [Novolin 70-30 100 Unit/ml Vial] 50 unit SQ BID 07/17/17 [History Confirmed 07/17/17] Levothyroxine Sodium [Levothyroxine 50mcg (0.05mg) Tab] 50 mcg PO DAILY [History Confirmed 07/17/17] Metformin HCl 1,000 mg PO BID 07/17/17 [History Confirmed 07/17/17] Methocarbamol [Methocarbamol 500mg Tablet] 500 mg PO BID 07/17/17 [History Confirmed 07/18/17] Metoprolol Tartrate [Lopressor 25mg tablet] 25 mg PO BID 07/17/17 [History Confirmed 07/17/17] Montelukast Sodium [Singulair] 10 mg PO HS 07/17/17 [History Confirmed 07/17/17] Omeprazole [Omeprazole 20mg Capsule] 20 mg PO DAILY 07/17/17 [History Confirmed 07/17/17] Oxycodone HCl [Oxycodone (IR) 30mg Tab] 30 mg PO Q6HP PRN 07/17/17 [History Confirmed 07/17/17] Potassium Chloride [K-Tab ER 20 mEq] 20 meq PO BID 07/17/17 [History Confirmed 07/17/17] Pravastatin Sodium [Pravachol 20mg Tablet] 20 mg PO HS 07/17/17 [History Confirmed 07/17/17] Umeclidinium Brm/Vilanterol Tr [Anoro Ellipta 62.5-25 Mcg INH] 1 each IH BID [History Confirmed 07/17/17] metOLazone [metOLazone 2.5mg Tablet] 2.5 mg PO DAILY 07/17/17 [History Confirmed 07/17/17] Aspirin [Aspirin 81mg chewable tab] 81 mg PO DAILY 07/18/17 [History Confirmed 07/18/17] Acetaminophen (Acetaminophen 325mg Tab) 650 mg PO Q4HP PRN PRN Reason: As Needed for Fever or Pain Stop: 08/16/17 03:25 Blood Glucose Test Strips (Fsbs (Bedside Glucose), Results Only !!) 1 each FS ACHS [facility] Stop: 08/16/17 05:59 Last Admin: 07/18/17 06:31 Dose: 1 each Docusate Sodium (Docusate Sodium 100mg Cap) 100 mg PO DAILY [facility] Stop: 08/16/17 08:59 Last Admin: 07/18/17 10:00 Dose: Not Given Gabapentin (Neurontin 600mg Tablet) 600 mg PO BID [facility] Stop: 08/16/17 20:59 Last Admin: 07/18/17 09:50 Dose: 600 mg Azithromycin 500 mg/ Sodium (Chloride) 250 mls @ 250 mls/hr IV Q24H SHAE PRN Reason: Protocol Stop: 08/16/17 20:59 Last Admin: 07/17/17 21:51 Dose: 250 mls/hr Ceftriaxone Sodium 1 gm/ (Sodium Chloride) 50 mls @ 100 mls/hr IV Q24H [facility] Stop: 08/16/17 16:59 Last Admin: 07/17/17 18:31 Dose: 100 mls/hr Sodium Chloride (Sod Chloride 0.9% 1000ml Bag) 1,000 mls @ 50 mls/hr IV .Q20H [facility] Stop: 08/16/17 11:59 Last Admin: 07/18/17 05:04 Dose: 50 mls/hr Insulin Lispro Protam/Lispro Human (Humalog Mix 75/25 3ml Flexpen) 50 unit SQ BIDWM [facility] Stop: 08/16/17 17:29 Last Admin: 07/18/17 06:33 Dose: Not Given Levothyroxine Sodium (Synthroid 50mcg (0.05mg) Tablet) 50 mcg PO DAILY [facility] Stop: 08/17/17 08:59 Last Admin: 07/18/17 09:50 Dose: 50 mcg Metoprolol Tartrate (Lopressor 25mg Tablet) 25 mg
--- NOTE | 2017-07-18 12:08 | SUR.PREOP ---
pt arrived per wc in stable condition from med-surg floor. Pt placed in bay 2 attached to cm with what appears NSR. Please refer to all cm strips on chart. VSS at this time. Failed yin's test per Tati Nguyễn RN.
[2017-07-18 15:04] LABS: CATHL Activated Clotting Time 271 SEC (74-125)
--- NOTE | 2017-07-18 16:29 | PC.NURSE ---
pt on floor from process laboratory specialist, tracelet in place, no bleeding or swelling noted at site at this time, vss, will continue to monitor
[2017-07-18 18:05] LABS: POC Glucose,Bedside 219 mg/dL
[2017-07-18 22:07] LABS: POC Glucose,Bedside 311 mg/dL
[2017-07-18 22:07] LABS: POC Glucose,Bedside 343 mg/dL
--- NOTE | 2017-07-18 23:46 | PC.NURSE ---
PT HAS SHOWN SIGNS OF CONFUSION AND AGITATION. PT IS NONVIOLENT AND EASILY REORIENTED. PULLS MONITORS OFF. WHEN PT IS REMINDED OF NEED FOR MONITORS HE CALMS DOWN. PT RESTING AT THIS TIME. MUMBLING IN HIS SLEEP. MONITORING PT CLOSELY AT THIS TIME. VSS. NO OTHER DISTRESS.
[2017-07-19] VITALS: BP 136/78; PULSE 91; PULSE 92; RESP 22; TEMP 36.6; O2SAT 94
[2017-07-19 01:52] VITALS: O2SAT 97
[2017-07-19 02:00] VITALS: BP 132/74; PULSE 91; RESP 22; O2SAT 100
--- NOTE | 2017-07-19 02:17 | PC.NURSE ---
PT IS UP IN CHAIR WITH FAMILY AT BEDSIDE. PT HAS BEEN CONFUSED THROUGHOUT THE NIGHT. PT IS IN VIEW OF NURSES STATION.
[2017-07-19 04:00] VITALS: BP 141/69; PULSE 80; PULSE 86; RESP 22; TEMP 36.9; O2SAT 94
--- NOTE | 2017-07-19 04:23 | PC.NURSE ---
pt is unsteady & confused & attempting to get up on his own. pt is in chair at this time with safety device attached to shoulder.
--- NOTE | 2017-07-19 05:48 | PC.NURSE ---
PT HAS BEEN CONFUSED AT TIMES T/O NIGHT. HE HAS ALSO BEEN GETTING UP OUT OF CHAIR WITHOUT ASSISTANCE AND PULLING ON IV TUBING AND MONITORS. PT HAS BEEN REDUCATED ON THE IMPORTANCE OF ASSISTANCE AND SAFETY. SAFETY ALARM IS APPLIED. V/S ARE STABLE. PT IS NSR ON TELEMETRY. (R) RADIAL CATH SITE HAS DRESSING APPLIED. IT IS C/D/I. LUNGS ARE DIMINISHED IN THE BASES. ABDOMEN IS GREATLY DISTENDED. PT HAD SMALL BM THIS SHIFT. NO OTHER CONCERNS NOTED. WILL CONTINUE TO MONITOR.
[2017-07-19 06:00] LABS: Basophils % 0.2 % (0.1-2.0); Eosinophils # 0.2 K/mm3 (0.0-0.4); Eosinophils % 1.7 % (0.1-12.0); Hematocrit 33.8 % (42.0-52.0); Hemoglobin 10.5 g/dL (14.1-18.0); Lymphocytes # 0.9 K/mm3 (0.7-4.5); Lymphocytes % 10.6 K/mm3 (10-50); Mean Corpuscular HGB Conc 31.1 g/dL (31.8-35.4); Mean Corpuscular Hemoglobin 23.8 pg (27.0-31.2); Mean Corpuscular Volume 76.4 fl (80-94); Mean Platelet Volume 7.2 fl (7.4-10.4); Monocytes # 0.5 K/mm3 (0.1-1.0); Monocytes % 5.5 % (1.7-9.3); Neutrophils # 7.2 K/mm3 (1.8-7.8); Platelet Count 261 K/mm3 (142-424); Red Blood Count 4.43 M/mm3 (4.60-6.20); Red Cell Distribution Width 16.4 % (11.5-17.5); White Blood Count 8.7 K/mm3 (4.8-10.8)
[2017-07-19 06:24] LABS: POC Glucose,Bedside 244 mg/dL
[2017-07-19 06:33] LABS: Anion Gap 10.8 mEq/L (5-15); Blood Urea Nitrogen 20 mg/dL (7-18); Carbon Dioxide 33 mmol/L (21.0-32.0); Chloride 94 mmol/L (98-107); Creatinine Clearance Estimated 37 mL/min (0-300); Creatinine,Serum 1.66 mg/dL (0.70-1.30); Estimated Glomerular Filt Rate 41 ml/min (>60); GFR (African American) 49 ML/MIN (>60); Glucose 238 mg/dL (74-106); Potassium 3.8 mmoL/L (3.5-5.1); Sodium 134 mmol/L (136-145)
--- NOTE | 2017-07-19 07:53 | PC.NURSE ---
REPORT HANDOFF TO Yuri BLANCHARD
[2017-07-19 08:00] VITALS: BP 137/77; PULSE 80; RESP 20; O2SAT 93
--- NOTE | 2017-07-19 08:54 | HMH.ACPN2 ---
<Viji Mederos - Last Filed: 07/19/17 08:54> Internal Medicine - PN: Subj *Date: 07/19/17 *Time: 08:54 Interval history: Patient states he does feel slightly better today. He is less short of air but states there is no way he can lay down to have a CT scan. He has been sitting up in the chair. Denies any pain. Nursing states he was confused during the night. Exam Vital signs and Labs for Last 24 Hours: Temp Pulse Resp BP Pulse Ox 98.4 F 86 22 141/69 94 L 07/19/17 04:00 07/19/17 04:00 07/19/17 04:00 07/19/17 04:00 07/19/17 04:00 Laboratory Results - last 24 hr 07/18/17 11:02: POC Glucose 219 07/18/17 14:38: Activated Clotting Time 271 H* 07/18/17 16:40: POC Glucose 311 07/18/17 20:21: POC Glucose 343 07/19/17 05:30: Sodium 134 L, Potassium 3.8, Chloride 94 L, Carbon Dioxide 33 H, Anion Gap 10.8, BUN 20 H, Creatinine 1.66 H, Estimated Creat Clear 37, Estimated GFR 41 L, Est GFR ( Amer) 49 L, Glucose 238 H D 07/19/17 05:30: WBC 8.7, RBC 4.43 L, Hgb 10.5 L, Hct 33.8 L, MCV 76.4 L, MCH 23.8 L, MCHC 31.1 L, RDW 16.4, Plt Count 261, MPV 7.2 L, Neut % (Auto) 82.0 H, Lymph % (Auto) 10.6, Benzie % (Auto) 5.5, Eos % (Auto) 1.7, Baso % (Auto) 0.2, Neut # (Auto) 7.2, Lymph # (Auto) 0.9, Benzie # (Auto) 0.5, Eos # (Auto) 0.2, Baso # (Auto) 0.0 07/19/17 06:14: POC Glucose 244 I & O for Last 24 hours: Intake & Output 07/16/17 07/17/17 07/18/17 07/19/17 11:59 11:59 11:59 11:59 Intake Total 1560 / 1560 1485 / 1485 770 / 770 Output Total 400 / 400 1001 / 1001 Balance 1160 / 1160 1485 / 1485 -231 / -231 Weight 289 lb 5 oz 280 lb 274 lb - Constitutional no acute distress - *Routine Respiratory Exam Present: wheezes (improved), crackles (faint in left base) - *Routine Cardiovascular Exam Present: RRR - *Routine Abdominal Exam Present: soft, normoactive bowel sounds. Absent: tenderness Assessment and Plan (1) Congestive heart failure Current visit: Yes Status: Acute Qualifiers: Congestive heart failure type: unspecified Congestive heart failure chronicity: acute on chronic Qualified Code(s): I50.9 - Heart failure, unspecified Category: Medical Code(s): I50.9 - Heart failure, unspecified (2) Renal insufficiency Current visit: Yes Status: Acute Category: Medical Code(s): N28.9 - Disorder of kidney and ureter, unspecified (3) Bronchitis Current visit: Yes Status: Acute Category: Medical Code(s): J40 - Bronchitis, not specified as acute or chronic (4) Lung mass Current visit: Yes Status: Acute Category: Medical Code(s): R91.8 - Other nonspecific abnormal finding of lung field (5) Hypertension Current visit: Yes Status: Chronic Category: Medical Code(s): I10 - Essential (primary) hypertension (6) Hyperlipidemia Current visit: Yes Status: Chronic Category: Medical Code(s): E78.5 - Hyperlipidemia, unspecified (7) Diabetes mellitus Current visit: Yes Status: Chronic Qualifiers: Diabetes mellitus type: type 2 Diabetes mellitus complication status: with unspecified complications Diabetes mellitus [facility] insulin use: unspecified termite renewal inspector insulin use status Qualified Code(s): E11.8 - Type 2 diabetes mellitus with unspecified complications Category: Medical Code(s): E11.9 - Type 2 diabetes mellitus without complications - Assessment and plan all Dx Assessment and Plan for all problems:: Will discuss further care with Dr. Mathews as patient states he cannot have a CT scan. <Armani Mathews - Last Filed: 07/19/17 11:14> Internal Medicine - PN: Subj *Date: 07/19/17 *Time: 11:07 Exam Vital signs and Labs for Last 24 Hours: Temp Pulse Resp BP Pulse Ox 98.4 F 86 22 141/69 93 L 07/19/17 04:00 07/19/17 04:00 07/19/17 04:00 07/19/17 04:00 07/19/17 11:00 Laboratory Results - last 24 hr 07/18/17 11:02: POC Glucose 219 07/18/17 14:38: Activated Clotting Time 271 H* 07/18/17 16:40: PO
--- NOTE | 2017-07-19 08:57 | P.PN_ITS ---
<Viji Mederos - Last Filed: 07/19/17 08:54> Internal Medicine - PN: Subj *Date: 07/19/17 *Time: 08:54 Interval history: Patient states he does feel slightly better today. He is less short of air but states there is no way he can lay down to have a CT scan. He has been sitting up in the chair. Denies any pain. Nursing states he was confused during the night. Exam Vital signs and Labs for Last 24 Hours: Temp Pulse Resp BP Pulse Ox 98.4 F 86 22 141/69 94 L 07/19/17 04:00 07/19/17 04:00 07/19/17 04:00 07/19/17 04:00 07/19/17 04:00 Laboratory Results - last 24 hr 07/18/17 11:02: POC Glucose 219 07/18/17 14:38: Activated Clotting Time 271 H* 07/18/17 16:40: POC Glucose 311 07/18/17 20:21: POC Glucose 343 07/19/17 05:30: Sodium 134 L, Potassium 3.8, Chloride 94 L, Carbon Dioxide 33 H , Anion Gap 10.8, BUN 20 H, Creatinine 1.66 H, Estimated Creat Clear 37, Estimated GFR 41 L, Est GFR ( Amer) 49 L, Glucose 238 H D 07/19/17 05:30: WBC 8.7, RBC 4.43 L, Hgb 10.5 L, Hct 33.8 L, MCV 76.4 L, MCH 23.8 L, MCHC 31.1 L, RDW 16.4, Plt Count 261, MPV 7.2 L, Neut % (Auto) 82.0 H, Lymph % (Auto) 10.6, Josephine % (Auto) 5.5, Eos % (Auto) 1.7, Baso % (Auto) 0.2, Neut # (Auto) 7.2, Lymph # (Auto) 0.9, Josephine # (Auto) 0.5, Eos # (Auto) 0.2, Baso # (Auto) 0.0 07/19/17 06:14: POC Glucose 244 I & O for Last 24 hours: Intake & Output 07/16/17 07/17/17 07/18/17 07/19/17 11:59 11:59 11:59 11:59 Intake Total 1560 / 1560 1485 / 1485 770 / 770 Output Total 400 / 400 1001 / 1001 Balance 1160 / 1160 1485 / 1485 -231 / -231 Weight 289 lb 5 oz 280 lb 274 lb - Constitutional no acute distress - *Routine Respiratory Exam Present: wheezes (improved), crackles (faint in left base) - *Routine Cardiovascular Exam Present: RRR - *Routine Abdominal Exam Present: soft, normoactive bowel sounds. Absent: tenderness Assessment and Plan (1) Congestive heart failure Current visit: Yes Status: Acute Qualifiers: Congestive heart failure type: unspecified Congestive heart failure chronicity: acute on chronic Qualified Code(s): I50.9 - Heart failure, unspecified Category: Medical Code(s): I50.9 - Heart failure, unspecified (2) Renal insufficiency Current visit: Yes Status: Acute Category: Medical Code(s): N28.9 - Disorder of kidney and ureter, unspecified (3) Bronchitis Current visit: Yes Status: Acute Category: Medical Code(s): J40 - Bronchitis, not specified as acute or chronic (4) Lung mass Current visit: Yes Status: Acute Category: Medical Code(s): R91.8 - Other nonspecific abnormal finding of lung field (5) Hypertension Current visit: Yes Status: Chronic Category: Medical Code(s): I10 - Essential (primary) hypertension (6) Hyperlipidemia Current visit: Yes Status: Chronic Category: Medical Code(s): E78.5 - Hyperlipidemia, unspecified (7) Diabetes mellitus Current visit: Yes Status: Chronic Qualifiers: Diabetes mellitus type: type 2 Diabetes mellitus complication status: with unspecified complications Diabetes mellitus residential insulin use: unspecified residential insulin use status Qualified Code(s): E11.8 - Type 2 diabetes mellitus with unspecified complications Category: Medical Code(s): E11.9 - Type 2 diabetes mellitus without complications - Assessment and plan all Dx Assessment and Plan for all problems:: Will discuss further care with Nigel
[2017-07-19 11:00] VITALS: O2SAT 93
--- NOTE | 2017-07-19 12:41 | PC.NURSE ---
late entry: patient had been confused this shift, and became very agitated with staff. did attempt to hit staff, and stormed off unit. family member waiting in waiting room came out and helped calm patient. dr. mercer who was conditioner tumbler operator rounded around this time and was made aware of patient and assisted with calming patient and getting him back to room. primary md providing care and was made aware of situations, patient more alert at this time. other family with patient and discharge instructions given to them. no questions at this time
--- NOTE | 2017-07-22 10:29 | HMH.CARCON ---
History of Present Illness Consult date: 07/17/17 Consult reason: shortness of breath Chief complaint: SOB History of present illness: Pt with SOB Review of Systems - *Neurologic Reports weakness, Denies headache(s), Denies seizure-like activity, Denies dizziness [facility] History I have reviewed the patient's past medical history: Yes Medical History: Reports:: Diabetes Mellitus Type 2, Hyperlipidemia, Hypertension Other Surgeries: Yes: Appendectomy - *Social History Educational Level: Attended High School Smoking Status: Never smoker Alcohol Intake: never *Occupational Status:: other Household Members: spouse - Psychiatric History Expresses thoughts of harming self/others: None Suicide Plan Description: No Plan Family Hx:: Coronary Artery Disease, Heart Attack, Hyperlipidemia, Hypertension, Stroke Meds Home Medications Medication Instructions Recorded Confirmed Type RX: Cyclobenzaprine HCl 10 mg PO BIDP PRN 07/17/17 08/07/18 History [Cyclobenzaprine 10mg Tab] RX: Methocarbamol [Methocarbamol 500 mg PO QID 07/17/17 08/07/18 History 500mg Tablet] RX: Omeprazole [Omeprazole 20mg 20 mg PO DAILY 07/17/17 08/07/18 History Capsule] RX: Oxycodone HCl [Oxycodone (IR) 30 mg PO Q6HP PRN 07/17/17 08/07/18 History 30mg Tab] RX: Umeclidinium Brm/Vilanterol Tr 1 each IH BID 07/17/17 08/07/18 History [Anoro Ellipta 62.5-25 Mcg INH] RX: Albuterol Sulfate [Albuterol 2.5 mg IH QID PRN 10/05/17 08/07/18 History Sulfate 2.5mg/0.5ml Neb] RX: Clopidogrel Bisulfate [Plavix 75 mg PO DAILY 03/23/18 08/07/18 History 75mg Tab] RX: Gabapentin [Gabapentin 800mg 800 mg PO QID 03/23/18 08/07/18 History Tab] RX: Montelukast Sodium 10 mg PO HS 03/23/18 08/07/18 History [Montelukast 10mg Tab] RX: Pravastatin Sodium [Pravachol 20 mg PO DAILY 03/23/18 08/07/18 History 20mg Tablet] RX: Spironolactone 50 mg PO BID 10/12/18 02/08/19 History rifAMPin [rifAMPin 300mg Capsule] 300 mg PO BID 04/14/18 08/07/18 History lisinopril 10 mg tablet 10 mg PO BID #60 tab 04/22/18 08/07/18 Rx insulin human U-100 NPH-regulr 100 unit SQ TID ml 05/11/18 08/07/18 History 70-30 mix 100 unit/mL subcutaneous susp aspirin 81 mg tablet,delayed 81 mg PO DAILY 05/26/18 08/07/18 History release bisoprolol fumarate 10 mg tablet 10 mg PO DAILY #30 tab 07/06/18 08/07/18 Rx furosemide 80 mg tablet 80 mg PO DAILY tab 07/14/18 08/07/18 History Allergies Allergy/AdvReac Type Severity Reaction Status Date / Time No Known Allergies Allergy Verified 08/07/18 10:29 Exam Vital signs and Labs for Last 24 Hours: Temp Pulse Resp BP Pulse Ox 98.4 F 80 20 137/77 93 L 07/19/17 04:00 07/19/17 08:00 07/19/17 08:00 07/19/17 08:00 07/19/17 11:00 I & O for Last 24 hours: Intake & Output 07/19/17 07/20/17 07/21/17 07/22/17 23:59 23:59 23:59 23:59 Intake Total 530 / 530 Output Total 650 / 650 Balance -120 / -120 Weight 274 lb - *Routine HEENT Exam Head: Present: normocephalic - *Routine Neck Exam Present: supple Results 07/19/17 05:30 07/19/17 05:30 Assessment and Plan (1) CAD (coronary artery disease) Status: Chronic Qualifiers: Coronary Disease-Associated Artery/Lesion type: [place] artery [place] vs. transplanted heart: [place] heart Associated angina: with other forms of angina Qualified Code(s): I25.118 - Atherosclerotic heart disease of [place] coronary artery with other forms of angina pectoris Category: Medical Code(s): I25.10 - Atherosclerotic heart disease of [place] coronary artery without angina pectoris (2) S/P coronary artery stent placement Status: Chronic Category: Surgical Code(s): Z95.5 - Presence of coronary angioplasty implant and graft (3) Congestive heart failure Status: Chronic Qualifiers: Heart failure type: unspecified Heart failure chronicity: unspecified Qualified Code(s): I50.9 - Heart failure, unspecifi
--- NOTE | 2017-07-22 10:33 | P.CONS_ITS ---
History of Present Illness Consult date: 07/17/17 Consult reason: shortness of breath Chief complaint: SOB History of present illness: Pt with SOB Review of Systems - *Neurologic Reports weakness, Denies headache(s), Denies seizure-like activity, Denies dizziness [facility] History I have reviewed the patient's past medical history: Yes Medical History: Reports:: Diabetes Mellitus Type 2, Hyperlipidemia, Hypertension Other Surgeries: Yes: Appendectomy - *Social History Educational Level: Attended High School Smoking Status: Never smoker Alcohol Intake: never *Occupational Status:: other Household Members: spouse - Psychiatric History Expresses thoughts of harming self/others: None Suicide Plan Description: No Plan Family Hx:: Coronary Artery Disease, Heart Attack, Hyperlipidemia, Hypertension, Stroke Meds Home Medications Medication Instructions Recorded Confirmed Type RX: Cyclobenzaprine HCl 10 mg PO BIDP PRN 07/17/17 08/07/18 History [Cyclobenzaprine 10mg Tab] RX: Methocarbamol [Methocarbamol 500 mg PO QID 07/17/17 08/07/18 History 500mg Tablet] RX: Omeprazole [Omeprazole 20mg 20 mg PO DAILY 07/17/17 08/07/18 History Capsule] RX: Oxycodone HCl [Oxycodone (IR) 30 mg PO Q6HP PRN 07/17/17 08/07/18 History 30mg Tab] RX: Umeclidinium Brm/Vilanterol Tr 1 each IH BID 07/17/17 08/07/18 History [Anoro Ellipta 62.5-25 Mcg INH] RX: Albuterol Sulfate [Albuterol 2.5 mg IH QID PRN 10/05/17 08/07/18 History Sulfate 2.5mg/0.5ml Neb] RX: Clopidogrel Bisulfate [Plavix 75 mg PO DAILY 03/23/18 08/07/18 History 75mg Tab] RX: Gabapentin [Gabapentin 800mg 800 mg PO QID 03/23/18 08/07/18 History Tab] RX: Montelukast Sodium 10 mg PO HS 03/23/18 08/07/18 History [Montelukast 10mg Tab] RX: Pravastatin Sodium [Pravachol 20 mg PO DAILY 03/23/18 08/07/18 History 20mg Tablet] RX: Spironolactone 50 mg PO BID 10/12/18 02/08/19 History rifAMPin [rifAMPin 300mg Capsule] 300 mg PO BID 04/14/18 08/07/18 History lisinopril 10 mg tablet 10 mg PO BID #60 tab 04/22/18 08/07/18 Rx insulin human U-100 NPH-regulr 100 unit SQ TID ml 05/11/18 08/07/18 History 70-30 mix 100 unit/mL subcutaneous susp aspirin 81 mg tablet,delayed 81 mg PO DAILY 05/26/18 08/07/18 History release bisoprolol fumarate 10 mg tablet 10 mg PO DAILY #30 tab 07/06/18 08/07/18 Rx furosemide 80 mg tablet 80 mg PO DAILY tab 07/14/18 08/07/18 History Allergies Allergy/AdvReac Type Severity Reaction Status Date / Time No Known Allergies Allergy Verified 08/07/18 10:29 Exam Vital signs and Labs for Last 24 Hours: Temp Pulse Resp BP Pulse Ox 98.4 F 80 20 137/77 93 L 07/19/17 04:00 07/19/17 08:00 07/19/17 08:00 07/19/17 08:00 07/19/17 11:00 I & O for Last 24 hours: Intake & Output 07/19/17 07/20/17 07/21/17 07/22/17 23:59 23:59 23:59 23:59 Intake Total 530 / 530 Output Total 650 / 650 Balance -120 / -120 Weight 274 lb - *Routine HEENT Exam Head: Present: normocephalic - *Routine Neck Exam Present: supple Res
--- NOTE | 2017-07-22 14:09 | HMH.DCSUM ---
General - General Admission date: 07/17/17 Discharge date: 07/19/17 HPI HPI: is a 77-year-old male patient of Lenore Holt who has a history of HTN, diabetes, and hyperlipidemia. He states back in April he had pneumonia twice and was hospitalized at [facility]. Approximately a week ago he began getting short of air. He had extreme dyspnea on exertion. This was worse the past 3 days and he was worried he may have pneumonia again, therefore he presented to the emergency room. A chest x-ray in the ER showed CHF with pulmonary edema and bilateral lobe alveolar disease which could possibly due to edema or pneumonia. There was also a question of metastatic disease to the right scapula and the ninth rib as well as a left suprahilar mass. He was admitted for further evaluation and treatment. Objective Vital signs: Temp Pulse Resp BP Pulse Ox 98.4 F 80 20 137/77 93 L 07/19/17 04:00 07/19/17 08:00 07/19/17 08:00 07/19/17 08:00 07/19/17 11:00 Narrative: - Constitutional no acute distress > - *Routine HEENT Exam Head: Present: normocephalic, atraumatic Eye: Present: EOMI, PERRL - *Routine Neck Exam Present: supple, full ROM - *Routine Respiratory Exam Present: wheezes, crackles (left base) - *Routine Cardiovascular Exam Present: RRR - *Routine Abdominal Exam Present: soft, normoactive bowel sounds. Absent: tenderness - *Routine Extremities Exam Present: edema (2+ bilaterally with nodular lesions on bilateral lower legs) - *Routine Skin Exam Present: intact - *Routine Neurological Exam Present: alert, oriented X3 Hospital Course Hospital Course: The patient had a CXR showing congestive heart failure with pulmonary edema with bilateral lower lobe alveolar disease which may be due to edema and/or pneumonia and small effusion on the right. There was also possible metastatic disease with suggestion of a blastic focus of the right scapula superiorly and question of a lytic lesion involving the left ninth rib. There was a possible left suprahilar mass. An echo was ordered and cardiology was consulted. The plan was to get a CT of the chest to evaluated the mass and possible metastatic disease. Cardiology saw the patient and discontinued his norvasc. They continued his diuretics and felt he would need a Lexiscan Myoview once respiratory status improved. Mr. Ellsworth' SOA improved. He was unable to have the Lexiscan Myoview as well as CAT scan of the chest because he was unable to lay flat. He was agreeable for a left heart cath. The heart cath showed severe proximal LAD disease and he had successful stenting. It also showed severe left ventricular dilatation with severely reduced ejection fraction and severe to critically elevated LVEDP. Cardiology started him on Brilinta and aspirin and continued to diurese. They wanted his LDL less than 55, for him to avoid tobacco, and to undergo cardiac rehab. On the day of discharge, the patient became combative with nursing staff because he wanted to leave the hospital. He left the ICU unit and walked to a waiting room on the other side of the hospital but became short of breath. Dr. Baig spoke with the patient and he agreed to return to the unit. He still wanted to go home. He was sating at 93% on RA and his family was present at bedside. Dr. Mathews felt it would be okay for discharge but he would still need a CT of chest due to his abnormal CXR. His family reported patient has an appt. with a [facility] in [place] on 07/22/17. He will also need to f/u with Dr. Pratt next week and education for CHF. He was stable to be discharged. DS: Diagnosis - Discharge Diagnosis (1) Congestive heart failure Status: Acute (2) Renal insufficiency Status: Acute (3) Bronchitis Status: Acute (4) Lung mass Status: Acute (5) Hypertension Status: Chronic (6) Hyperlipidemi
--- NOTE | 2017-07-22 14:17 | P.DS_ITS ---
General - General Admission date: 07/17/17 Discharge date: 07/19/17 HPI HPI: is a 77-year-old male patient of Lenore Holt who has a history of HTN , diabetes, and hyperlipidemia. He states back in April he had pneumonia twice and was hospitalized at [facility]. Approximately a week ago he began getting short of air. He had extreme dyspnea on exertion. This was worse the past 3 days and he was worried he may have pneumonia again, therefore he presented to the emergency room. A chest x-ray in the ER showed CHF with pulmonary edema and bilateral lobe alveolar disease which could possibly due to edema or pneumonia. There was also a question of metastatic disease to the right scapula and the ninth rib as well as a left suprahilar mass. He was admitted for further evaluation and treatment. Objective Vital signs: Temp Pulse Resp BP Pulse Ox 98.4 F 80 20 137/77 93 L 07/19/17 04:00 07/19/17 08:00 07/19/17 08:00 07/19/17 08:00 07/19/17 11:00 Narrative: - Constitutional no acute distress > - *Routine HEENT Exam Head: Present: normocephalic, atraumatic Eye: Present: EOMI, PERRL - *Routine Neck Exam Present: supple, full ROM - *Routine Respiratory Exam Present: wheezes, crackles (left base) - *Routine Cardiovascular Exam Present: RRR - *Routine Abdominal Exam Present: soft, normoactive bowel sounds. Absent: tenderness - *Routine Extremities Exam Present: edema (2+ bilaterally with nodular lesions on bilateral lower legs) - *Routine Skin Exam Present: intact - *Routine Neurological Exam Present: alert, oriented X3 Hospital Course Hospital Course: The patient had a CXR showing congestive heart failure with pulmonary edema with bilateral lower lobe alveolar disease which may be due to edema and/or pneumonia and small effusion on the right. There was also possible metastatic disease with suggestion of a blastic focus of the right scapula superiorly and question of a lytic lesion involving the left ninth rib. There was a possible left suprahilar mass. An echo was ordered and cardiology was consulted. The plan was to get a CT of the chest to evaluated the mass and possible metastatic disease. Cardiology saw the patient and discontinued his norvasc. They continued his diuretics and felt he would need a Lexiscan Myoview once respiratory status improved. Mr. Ellsworth' SOA improved. He was unable to have the Lexiscan Myoview as well as CAT scan of the chest because he was unable to lay flat. He was agreeable for a left heart cath. The heart cath showed severe proximal LAD disease and he had successful stenting. It also showed severe left ventricular dilatation with severely reduced ejection fraction and severe to critically elevated LVEDP. Cardiology started him on Brilinta and aspirin and continued to diurese. They wanted his LDL less than 55, for him to avoid tobacco, and to undergo cardiac rehab. On the day of discharge, the patient became combative with nursing staff because he wanted to leave the hospital. He left the ICU unit and walked to a waiting room on the other side of the hospital but became short of breath. Dr. Baig spoke with the patient and he agreed to return to the unit. He still wanted to go home. He was sating at 93% on RA and his family was present at bedside. Dr. Mathews felt it would be okay for discharge but he would still need a CT of chest due to his abnormal CXR. His family reported patient has an appt. with a [employer] i
== END 2017-07-19 12:20 | disposition home or self-care (01) | DRG 247 ==
LOC: ER 02:46 → 2ND 03:12 → ICU 07-18 15:23
PROVIDERS: Internal Medicine; Physician Assistant; Admitting Provider Family Medicine; Emergency Provider Emergency Medicine; PCP Nurse Practitioner Family; Visit Provider Family Medicine
PROC: 4A023N7 Measurement of Cardiac Sampling and Pressure, Left Heart, Percutaneous Approach (ICD-10-PCS; principal; 2017-07-18 11:00)
DX: E11.9 Type 2 diabetes mellitus without complications; I50.23 Acute on chronic systolic (congestive) heart failure; I25.10 Atherosclerotic heart disease of native coronary artery without angina pectoris; I11.0 Hypertensive heart disease with heart failure; Z72.0 Tobacco use
CPT/HCPCS: 36415; 71046; 80048; 80053; 80061; 82550; 82553; 82803; 82962; 83605; 83880; 84436; 84443; 84484; 85007; 85025; 85347; 87040; 92928; 93005; 93041; 93306; 93458; 94760; 94761; 96375; 99152; 99284; A9537; C1725; C1760; C1769; C1876; C9600; J0456; J1644; Q9967

== ENCOUNTER 2017-08-21 12:33 | Emergency (ER) | payer MEDICARE, SELFPAY ==
[2017-08-21 12:43] VITALS: BP 143/87; PULSE 70; RESP 24; TEMP 36.8; O2SAT 95; BMI 43.2
--- NOTE | 2017-08-21 12:49 | XR_ITS ---
XR chest 2V HISTORY: ITS.REASON: cough,soa ORDERING PHYSICIAN: Willard Burrows MD PATIENT AGE: 77 years COMPARISON: 07/17/2017 FINDINGS: Congestive heart failure has improved compared to the previous exam. There does remain some mild pulmonary venous congestion and minimal interstitial edema consistent with mild CHF. Pleural effusions have improved. No change blastic lesion of the right scapula and lytic lesion of the left ninth rib. There are old bilateral rib fractures. IMPRESSION: 1. Interval improvement in congestive heart failure and bilateral effusions. There may be some minimal residual interstitial edema. 2. No change blastic lesion of the right scapula and lytic lesion of the left ninth rib. Consider chest CT for further evaluation.
[2017-08-21 13:20] LABS: Basophils % 0.2 % (0.1-2.0); Eosinophils # 0.2 K/mm3 (0.0-0.4); Eosinophils % 1.7 % (0.1-12.0); Hematocrit 34.6 % (42.0-52.0); Hemoglobin 10.5 g/dL (14.1-18.0); Lymphocytes # 0.8 K/mm3 (0.7-4.5); Lymphocytes % 6.9 K/mm3 (10-50); Mean Corpuscular HGB Conc 30.4 g/dL (31.8-35.4); Mean Corpuscular Hemoglobin 23.7 pg (27.0-31.2); Mean Corpuscular Volume 78.1 fl (80-94); Mean Platelet Volume 8.7 fl (7.4-10.4); Monocytes # 0.5 K/mm3 (0.1-1.0); Monocytes % 4.1 % (1.7-9.3); Neutrophils # 10.1 K/mm3 (1.8-7.8); Neutrophils % 87.1 % (37.0-80.0); Platelet Count 254 K/mm3 (142-424); Red Blood Count 4.43 M/mm3 (4.60-6.20); Red Cell Distribution Width 18.4 % (11.5-17.5); White Blood Count 11.6 K/mm3 (4.8-10.8)
[2017-08-21 13:27] LABS: MANUAL DIFFERENTIAL MANUAL DIFFERENTIAL (MANUAL DIFF)
[2017-08-21 13:31] LABS: Lactic Acid 2.7 mmol/L (0.4-2.0)
[2017-08-21 13:44] LABS: Alanine Aminotransferase 20 U/L (12-78); Albumin Level 3.3 gm/dL (3.4-5.0); Albumin/Globulin Ratio 0.6 (1.1-1.8); Alkaline Phosphatase 82 U/L (46-116); Anion Gap 13.8 mEq/L (5-15); Aspartate Amino Transferase 18 U/L (15-37); Bilirubin,Total 0.4 mg/dL (0.2-1.0); Blood Urea Nitrogen 38 mg/dL (7-18); CKMB Relative Index 0.9 U/L (0-4.0); Calcium 8.8 mg/dL (8.5-10.1); Carbon Dioxide 23 mmol/L (21.0-32.0); Chloride 98 mmol/L (98-107); Creatine Kinase 733 U/L (39-308); Creatine Kinase MB 6.9 mg/ml (0.0-3.6); Creatinine Clearance Estimated 22 mL/min (0-300); Estimated Glomerular Filt Rate 22 ml/min (>60); GFR (African American) 27 ML/MIN (>60); Globulin 5.3 gm/dl (1.3-3.2); Potassium 5.8 mmoL/L (3.5-5.1); Sodium 129 mmol/L (136-145); Total Protein,Serum 8.6 gm/dL (6.4-8.2); Troponin I < 0.02 ng/ml (0.00-0.06)
--- NOTE | 2017-08-21 14:02 | HMH.EDGENADL ---
ED Disposition Clinical Impression: Acute exacerbation of chronic obstructive airways disease, Renal insufficiency, Hyponatremia, Elevated d-dimer, Elephantiasis, Congestive heart failure, Left against medical advice Disposition: Still a Patient Condition on Discharge: Fair Referrals: Lenore Holt APRN [Primary Care Provider] - - Critical Care Critical Care Time: No Attestation: On 08/21/17, the high probability of a clinically significant, sudden or life threatening deterioration of the following system(s) required my full and direct attention, intervention and personal management. The time I documented below is in addition to time spent performing reported procedures but includes the following listed in this critical care notation. Medical Decision Making Vital Signs: 08/21/17 12:43 Temperature 98.3 F Temperature Source Oral Pulse Rate [Right Brachial] 70 Respiratory Rate 24 Blood Pressure [Right Arm] 143/87 Blood Pressure Mean [Right Arm] 105 Blood Pressure Source [Right Arm] Automatic Cuff Blood Pressure Position [Right Arm] Sitting 02 Sat by Pulse Oximetry 95 Oxygen Delivery Method Room Air - Lab Data Lab Results 08/21/17 12:55: Influenza Type A Ag Negative, Influenza Type B Ag Negative 08/21/17 13:00: WBC 11.6 H, RBC 4.43 L, Hgb 10.5 L, Hct 34.6 L, MCV 78.1 L, MCH 23.7 L, MCHC 30.4 L, RDW 18.4 H, Plt Count 254, MPV 8.7, Neut % (Auto) 87.1 H, Lymph % (Auto) 6.9 L, [place] % (Auto) 4.1, Eos % (Auto) 1.7, Baso % (Auto) 0.2, Neut # (Auto) 10.1 H, Lymph # (Auto) 0.8, [place] # (Auto) 0.5, Eos # (Auto) 0.2, Baso # (Auto) 0.0 08/21/17 13:00: Sodium 129 L, Potassium 5.8 H, Chloride 98, Carbon Dioxide 23, Anion Gap 13.8, BUN 38 H, Creatinine 2.80 H, Estimated Creat Clear 22, Estimated GFR 22 L, Est GFR ( Amer) 27 L, Glucose 189 H, Calcium 8.8, Total Bilirubin 0.4, AST 18, ALT 20, Alkaline Phosphatase 82, Total Creatine Kinase 733 H*, CK-MB (CK-2) 6.9 H D, CK-MB (CK-2) Rel Index 0.9, Troponin I < 0.02, Total Protein 8.6 H, Albumin 3.3 L, Globulin 5.3 H, Albumin/Globulin Ratio 0.6 L 08/21/17 13:00: Lactic Acid 2.7 H 08/21/17 13:00: B-Natriuretic Peptide 76 08/21/17 13:00: D-Dimer 511 H* Result diagrams: 08/21/17 13:00 08/21/17 13:00 Orders (Tests/Meds): ED MEDICATIONS Discontinued Medications Generic Name Dose Route Start Last Admin Trade Name Freq PRN Reason Stop Dose Admin Albuterol/Ipratropium 3 ml 08/21/17 14:11 08/21/17 14:45 Duoneb 3ml Neb IH 08/21/17 14:12 3 ml ONCE ONE Administration Methylprednisolone Sodium Succinate 80 mg 08/21/17 14:11 08/21/17 14:45 Solu-Medrol 125mg/2ml Vial IV 08/21/17 14:12 80 mg ONCE ONE Administration ORDERS Category Date Time Status Complete Blood Count Auto Diff Stat Lab 08/21/17 13:00 Results Blood Culture Stat Micro 08/21/17 13:00 Received - Kehinde Inquiry Pt receiving controlled substance: No Kehinde was queried for this patient: No Medical Decision Making Narrative: I discussed with the patient his abnormal findings I advised him for steroids and DuoNeb's. I advised the patient for admission and he wanted to think about. [address] Alvarez for admission. 1500 I spoke the patient again and he refused to be admitted. The is aware that he is at risk for renal failure hyperkalemia pulmonary embolism and sudden . General Adult HPI - General Chief complaint: Shortness of Breath/Dyspnea Stated complaint: soa Mode of Arrival: Ambulatory Limitations: No Limitations Description of Symptoms (Recalled from ER Triage Doc. by RN): 2 weeks of soa - History of Present Illness HPI narrative: 77 years old white male with history of COPD and diabetic complication. He has been experiencing shortness of breath for years and occasionally pneumonias. He states that he felt weak yesterday and almost fell. Planes of nonproductive cough and he was concerned that he might have pneumonia. He came to the ED obtai
[2017-08-21 14:04] LABS: Glucose 189 mg/dL (74-106)
--- NOTE | 2017-08-21 14:07 | ED_ITS ---
ED Disposition Clinical Impression: Acute exacerbation of chronic obstructive airways disease, Renal insufficiency , Hyponatremia, Elevated d-dimer, Elephantiasis, Congestive heart failure, Left against medical advice Disposition: Still a Patient Condition on Discharge: Fair Referrals: Lenore Holt APRN [Primary Care Provider] - - Critical Care Critical Care Time: No Attestation: On 08/21/17, the high probability of a clinically significant, sudden or life threatening deterioration of the following system(s) required my full and direct attention, intervention and personal management. The time I documented below is in addition to time spent performing reported procedures but includes the following listed in this critical care notation. Medical Decision Making Vital Signs: 08/21/17 12:43 Temperature 98.3 F Temperature Source Oral Pulse Rate [Right Brachial] 70 Respiratory Rate 24 Blood Pressure [Right Arm] 143/87 Blood Pressure Mean [Right Arm] 105 Blood Pressure Source [Right Arm] Automatic Cuff Blood Pressure Position [Right Arm] Sitting 02 Sat by Pulse Oximetry 95 Oxygen Delivery Method Room Air - Lab Data Lab Results 08/21/17 12:55: Influenza Type A Ag Negative, Influenza Type B Ag Negative 08/21/17 13:00: WBC 11.6 H, RBC 4.43 L, Hgb 10.5 L, Hct 34.6 L, MCV 78.1 L, MCH 23.7 L, MCHC 30.4 L, RDW 18.4 H, Plt Count 254, MPV 8.7, Neut % (Auto) 87.1 H, Lymph % (Auto) 6.9 L, Bell % (Auto) 4.1, Eos % (Auto) 1.7, Baso % (Auto) 0.2, Neut # (Auto) 10.1 H, Lymph # (Auto) 0.8, Bell # (Auto) 0.5, Eos # (Auto) 0.2, Baso # (Auto) 0.0 08/21/17 13:00: Sodium 129 L, Potassium 5.8 H, Chloride 98, Carbon Dioxide 23, Anion Gap 13.8, BUN 38 H, Creatinine 2.80 H, Estimated Creat Clear 22, Estimated GFR 22 L, Est GFR ( Amer) 27 L, Glucose 189 H, Calcium 8.8, Total Bilirubin 0.4, AST 18, ALT 20, Alkaline Phosphatase 82, Total Creatine Kinase 733 H*, CK-MB (CK-2) 6.9 H D, CK-MB (CK-2) Rel Index 0.9, Troponin I < 0.02, Total Protein 8.6 H, Albumin 3.3 L, Globulin 5.3 H, Albumin/Globulin Ratio 0.6 L 08/21/17 13:00: Lactic Acid 2.7 H 08/21/17 13:00: B-Natriuretic Peptide 76 08/21/17 13:00: D-Dimer 511 H* Result diagrams: 08/21/17 13:00 08/21/17 13:00 Orders (Tests/Meds): ED MEDICATIONS Discontinued Medications Generic Name Dose Route Start Last Admin Trade Name Freq PRN Reason Stop Dose Admin Albuterol/Ipratropium 3 ml 08/21/17 14:11 08/21/17 14:45 Duoneb 3ml Neb IH 08/21/17 14:12 3 ml ONCE ONE Administration Methylprednisolone Sodium Succinate 80 mg 08/21/17 14:11 08/21/17 14:45 Solu-Medrol 125mg/2ml Vial IV 08/21/17 14:12 80 mg ONCE ONE Administration ORDERS Category Date Time Status Complete Blood Count Auto Diff Stat Lab 08/21/17 13:00 Results Blood Culture Stat Micro 08/21/17 13:00 Received - Kehinde Inquiry Pt receiving controlled substance: No Kehinde was queried for this patient: No Medical Decision Making Narrative: I discussed with the patient his abnormal findings I advised him for steroids and DuoNeb's. I advised the patient for admission and he wanted to think about. [id number] Alvarez for admission. 1500 I spoke the patient again and he refused to be admitted. The is aware that he is at risk for renal failure hyperkalemia pulmonary embolism and sudden .
[2017-08-21 14:41] LABS: D-Dimer 511 (0-400)
[2017-08-21 14:45] VITALS: PULSE 80
[2017-08-21 14:59] LABS: Eosinophils % 3 % (0-3); Lymphocytes % 5 % (10-50); Monocytes % 5 % (2-9); Neutrophils % 87 % (42-76); Platelet Estimate Normal; RBC Morphology Normal; Total Cells Counted 100
[2017-08-21 15:26] VITALS: BP 142/80; PULSE 85; RESP 18; TEMP 36.7; O2SAT 98
[2017-08-21 17:11] LABS: Reflex Lactic Add Lactic Reflex
--- NOTE | 2017-10-16 04:39 | PC.NURSE ---
Amy from called and requested more records from pt. records sent.
== END 2017-08-21 15:26 | disposition still patient (30) ==
PROVIDERS: Emergency Provider Emergency Medicine; PCP Nurse Practitioner Family
DX: J44.1 Chronic obstructive pulmonary disease with (acute) exacerbation (principal); N18.9 Chronic kidney disease, unspecified; E87.1 Hypo-osmolality and hyponatremia; I10 Essential (primary) hypertension; I50.9 Heart failure, unspecified; E11.9 Type 2 diabetes mellitus without complications; Z79.4 Long term (current) use of insulin; E78.5 Hyperlipidemia, unspecified; I89.0 Lymphedema, not elsewhere classified
CPT/HCPCS: 71046; 80053; 82550; 82553; 83605; 83880; 84484; 85007; 85025; 85378; 87040; 87275; 87276; 99281

== ENCOUNTER → 2017-10-24 07:58 | Outpatient (CLI) | payer MEDICARE, SELFPAY ==
--- NOTE | 2017-10-24 08:20 | NM_ITS ---
History and Indications: Evaluate left ventricular systolic function Procedure: Resting Myoview SPECT scan was performed, using technetium 99 Myoview 9.5 mCi. Resting SPECT was performed in the standard view. Electrocardiogram: Not applicable Cardiac resting SPECT images: Cardiac resting SPECT images show severely reduced tracer activity in the inferior and inferolateral wall, computer derived ejection fraction 47% with inferior wall motion abnormality. Conclusion: 1. Resting Myoview scan shows reduced tracer activity in the inferior wall with an ejection fraction is 47% with segmental wall motion abnormalities described above.
[2017-10-24 08:39] LABS: Blood Urea Nitrogen 23 mg/dL (7-18); Creatinine,Serum 1.35 mg/dL (0.70-1.30); Estimated Glomerular Filt Rate 52 ml/min (>60); GFR (African American) 62 ML/MIN (>60)
== END ==
PROVIDERS: PCP Nurse Practitioner Family; Visit Provider Internal Medicine
DX: I50.23 Acute on chronic systolic (congestive) heart failure (principal); R06.00 Dyspnea, unspecified; I25.10 Atherosclerotic heart disease of native coronary artery without angina pectoris; Z95.5 Presence of coronary angioplasty implant and graft
CPT/HCPCS: 36415; 78451; 82565; 84520; A9502

== ENCOUNTER → 2018-02-20 07:51 | Outpatient (CLI) | payer MEDICARE, SELFPAY ==
--- NOTE | 2018-02-20 07:53 | CA_ITS ---
PROCEDURE: 2-D M-mode and color Doppler study INDICATIONS FOR THE TEST: Chest pain COPD Heart Murmur Tobacco Smoking Palpitations Fatigue Syncope Edema HypertensionXDiabetes Mellitus Rheumatic Fever SOBXDOEXObesityXHyperlipidemiaX Family History HD Additional History CM,AF,CAD PATIENT INFORMATION HEIGHT: 68 WEIGHT:279 GENDER: Male B/P:145/53 2-D/M-MODE INTERPRETATION: 2-D MEASUREMENTS OBSERVED VALUES IN CMS Right Ventricular Dimension (RVDd) 2.7 Interventricular Septum (Thickness)(IVsd) 1.0 Left Ventricular Internal Dimensions(LVIDd) 5.7 Left Ventricular Posterior Wall (Thickness)(LVPWd) 1.0 Aortic Root 3.5 Aortic Cusp Separation 1.5 Left Atrial Dimensions (LAD) 4.3 2D 1. Left atrium is mildly enlarged, left ventricle is normal size, there is mild qualitative concentric left ventricular hypertrophy, visually estimated ejection fraction approximately 45%, there is marked hypokinesis involving the inferior basal and posterobasal wall. 2. The right atrium and right ventricle are normal size and contractility. 3. The aortic valve is thickened and calcified leaflet continue to display mobility. 4. The mitral and tricuspid valve leaflets are minimally thickened. 5. The pulmonic valve is poorly visualized. 6. No significant pericardial effusion noted. DOPPLER INTERROGATION: Doppler interrogation of the aortic, mitral and tricuspid valvular presence of mild mitral and tricuspid regurgitation, tricuspid regurgitation jet velocity is insufficient for calculation of the right ventricular systolic pressure, Doppler evidence of impaired LV relaxation seen, there is no tissue Doppler performed CONCLUSION: 1. Left atrium is mildly enlarged, left ventricle is normal size, mild concentric left ventricular hypertrophy, visually estimated ejection fraction approximately 45% with segmental wall motion abnormality described above, Doppler evidence of impaired LV relaxation seen. There is no tissue Doppler performed. 2. Mild mitral and tricuspid regurgitation 3. No significant pericardial effusion noted.
== END ==
PROVIDERS: PCP Nurse Practitioner Family; Visit Provider Internal Medicine
DX: R06.09 Other forms of dyspnea (principal)
CPT/HCPCS: 93306

== ENCOUNTER 2018-03-03 09:00 | Outpatient (RCR) | payer MEDICARE, SELFPAY | END 2018-03-03 09:01 | disposition home or self-care (01) | LOC: PT 09:00 | PROVIDERS: PCP Nurse Practitioner Family; Visit Provider Nurse Practitioner Family | DX: L03.115 Cellulitis of right lower limb (principal); L03.116 Cellulitis of left lower limb | CPT/HCPCS: 29580; 97163 ==

== ENCOUNTER → 2018-03-03 09:03 | Outpatient (CLI) | payer MEDICARE, SELFPAY ==
[2018-03-03 10:33] LABS: Anion Gap 12.7 mEq/L (5-15); Blood Urea Nitrogen 26 mg/dL (7-18); Calcium 8.9 mg/dL (8.5-10.1); Carbon Dioxide 29 mmol/L (21.0-32.0); Chloride 104 mmol/L (98-107); Creatinine,Serum 2.45 mg/dL (0.70-1.30); Estimated Glomerular Filt Rate 26 ml/min (>60); GFR (African American) 31 ML/MIN (>60); Potassium 5.7 mmoL/L (3.5-5.1); Sodium 140 mmol/L (136-145)
[2018-03-03 10:44] LABS: Glucose 214 mg/dL (74-106)
[2018-03-03 16:01] LABS: Creatine Kinase 185 U/L (39-308)
== END ==
PROVIDERS: PCP Nurse Practitioner Family; Visit Provider Internal Medicine
DX: N17.9 Acute kidney failure, unspecified (principal); N28.9 Disorder of kidney and ureter, unspecified; E87.5 Hyperkalemia; I25.10 Atherosclerotic heart disease of native coronary artery without angina pectoris; R06.09 Other forms of dyspnea
CPT/HCPCS: 36415; 80048; 82550

== ENCOUNTER → 2018-03-05 10:11 | Outpatient (CLI) | payer MEDICARE, SELFPAY ==
[2018-03-05 11:18] LABS: Anion Gap 11.7 mEq/L (5-15); Blood Urea Nitrogen 20 mg/dL (7-18); Calcium 9.6 mg/dL (8.5-10.1); Carbon Dioxide 29 mmol/L (21.0-32.0); Chloride 105 mmol/L (98-107); Creatinine,Serum 1.84 mg/dL (0.70-1.30); Estimated Glomerular Filt Rate 36 ml/min (>60); GFR (African American) 44 ML/MIN (>60); Potassium 5.7 mmoL/L (3.5-5.1); Sodium 140 mmol/L (136-145)
[2018-03-05 11:42] LABS: Glucose 200 mg/dL (74-106)
== END ==
PROVIDERS: PCP Nurse Practitioner Family; Visit Provider Internal Medicine
DX: E11.8 Type 2 diabetes mellitus with unspecified complications (principal); E78.4 Other hyperlipidemia; E87.5 Hyperkalemia; I10 Essential (primary) hypertension; I25.10 Atherosclerotic heart disease of native coronary artery without angina pectoris; I50.23 Acute on chronic systolic (congestive) heart failure; I50.9 Heart failure, unspecified; N17.9 Acute kidney failure, unspecified; N28.9 Disorder of kidney and ureter, unspecified; R06.09 Other forms of dyspnea; R91.8 Other nonspecific abnormal finding of lung field; Z95.5 Presence of coronary angioplasty implant and graft
CPT/HCPCS: 36415; 80048

== ENCOUNTER → 2018-03-10 08:53 | Outpatient (CLI) | payer MEDICARE, SELFPAY ==
[2018-03-10 09:18] LABS: Anion Gap 12.8 mEq/L (5-15); Blood Urea Nitrogen 18 mg/dL (7-18); Calcium 8.5 mg/dL (8.5-10.1); Carbon Dioxide 27 mmol/L (21.0-32.0); Chloride 105 mmol/L (98-107); Creatinine,Serum 1.61 mg/dL (0.70-1.30); Estimated Glomerular Filt Rate 42 ml/min (>60); GFR (African American) 51 ML/MIN (>60); Glucose 274 mg/dL (74-106); Potassium 4.8 mmoL/L (3.5-5.1); Sodium 140 mmol/L (136-145)
== END ==
PROVIDERS: PCP Nurse Practitioner Family; Visit Provider Internal Medicine
DX: I42.9 Cardiomyopathy, unspecified (principal); N18.2 Chronic kidney disease, stage 2 (mild)
CPT/HCPCS: 36415; 80048

== ENCOUNTER 2018-03-23 01:16 | Observation (INO) ==
[2018-03-23 01:52] LABS: Basophils % 0.2 % (0.1-2.0); Eosinophils # 0.2 K/mm3 (0.0-0.4); Eosinophils % 2.1 % (0.1-12.0); Hematocrit 37.4 % (42.0-52.0); Hemoglobin 11.6 g/dL (14.1-18.0); Lymphocytes % 12.8 K/mm3 (10-50); Mean Corpuscular HGB Conc 30.9 g/dL (31.8-35.4); Mean Corpuscular Volume 87.2 fl (80-94); Mean Platelet Volume 8.3 fl (7.4-10.4); Monocytes # 0.5 K/mm3 (0.1-1.0); Monocytes % 6.4 % (1.7-9.3); Neutrophils % 78.5 % (37.0-80.0); Platelet Count 259 K/mm3 (142-424); Red Blood Count 4.29 M/mm3 (4.60-6.20); Red Cell Distribution Width 16.2 % (11.5-17.5); White Blood Count 7.6 K/mm3 (4.8-10.8)
[2018-03-23 02:09] LABS: INR 0.99 (0.9-1.1); Prothrombin Time 10.2 seconds (9.4-11.8)
[2018-03-23 02:11] LABS: Blood Urea Nitrogen 14 mg/dL (7-18); Calcium 8.3 mg/dL (8.5-10.1); Carbon Dioxide 31 mmol/L (21.0-32.0); Chloride 104 mmol/L (98-107); Glucose 155 mg/dL (74-106); Sodium 140 mmol/L (136-145)
[2018-03-23 02:15] LABS: Albumin Level 3.1 gm/dL (3.4-5.0); Bilirubin,Direct 0.1 mg/dL (0.0-0.2); Bilirubin,Indirect 0.4 mg/dL (0.0-0.9); Bilirubin,Total 0.5 mg/dL (0.2-1.0); Total Protein,Serum 7.2 gm/dL (6.4-8.2)
--- NOTE | 2018-03-23 07:30 | Pharmacy Consult Notes ---
[facility] Pharmacy VTE Monitoring - Patient Demographics Admission date: 03/23/18 Report Date: 03/23/18 Time: 07:30 Allergies/Adverse Reactions: Patient Allergies No Known Allergies Allergy (Verified 02/03/18 11:06) Height: 1.73 m Weight: 131.684 kg Patient Problems: Current Active Problems Chest pain (Acute) - VTE Risk Labs: VTE Related Lab Results Hgb 11.6 g/dL (14.1-18.0) L 03/23/18 01:30 Hct 37.4 % (42.0-52.0) L 03/23/18 01:30 Plt Count 259 K/mm3 (142-424) 03/23/18 01:30 PT 10.2 seconds (9.4-11.8) 03/23/18 01:30 INR 0.99 (0.9-1.1) 03/23/18 01:30 BUN 14 mg/dL (7-18) 03/23/18 01:30 Creatinine 1.40 mg/dL (0.70-1.30) H 03/23/18 01:30 Estimated Creat Clear 76 mL/min (0-300) 03/23/18 01:30 - Prophylaxis VTE Prophylaxis Ordered?: Yes Types of VTE Prophylaxis: TEDS Knee High Location of Applied Device: Bilateral Lower Extremeties - VTE Diagnosis Confirmed Treatment or plan recommended: Continue Current Treatment
--- NOTE | 2018-03-23 09:31 | History & Physical Report ---
*Admission Date: 03/23/18 <Kyra Barahona 03/23/18 09:42> *Chief complaint: Chest pain <Kyra Barahona 03/23/18 09:42> *History of present illness: Mr. 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 He states the chest pain was severe and radiated up into the neck and was associated with numbness in his bilateral arms. He is on home oxygen but felt his breathing was more difficult. He denies palpitations, nausea or vomiting. He does have ongoing edema of bilateral legs which seems to have been worse lately. He usually wears wraps around both lower extremities. Patient has a history of cardiomyopathy, coronary artery disease, hyperlipidemia, hypertension and diabetes type 2. Recently his diuretics have been adjusted and decreased due to renal issues. ER note is not available but his does state that he had an IV water shot in the emergency room. Patient states that after this he did feel somewhat better. At this particular time he is breathing well and denies chest pain. <Kyra Barahona 03/23/18 11:19> [facility] History Medical History: Reports:: Cardiomyopathy, Congestive Heart Failure, Congenital Heart Disease, Coronary Artery Disease, Diabetes Mellitus Type 2, Hyperlipidemia, Hypertension, Renal Insufficiency Denies:: Cancer, Diabetes Mellitus Type 1, Internal Pacemaker, MRSA, Seizures <JunKyra 03/23/18 09:42> Other Medical History: Reports: Arthritis. Denies: Blood Transfusion Reaction <BarahonaKyra 03/23/18 09:42> Other Surgeries: Yes: Appendectomy, Coronary Stent, Other. No: Pacemaker <BarahonaKyra 03/23/18 09:42> Amputation: No <JunKyra 03/23/18 09:42> Fractures: No <JunKyra 03/23/18 09:42> - *Social History Smoking Status: Former smoker <BarahonaKyra 03/23/18 09:42> Tobacco Type: cigarettes <JunKyra 03/23/18 09:42> Alcohol Intake: never <JunKyra 03/23/18 09:42> Alcohol Intake Frequency:: other <Kyra Barahona 03/23/18 09:42> Substance Use Type: denies use <Kyra Barahona 03/23/18 09:42> Occupational Status: retired, other <Kyra Barahona 03/23/18 09:42> Household Members: spouse <Kyra Barahona 03/23/18 09:42> - Psychiatric History Expresses thoughts of harming self/others: None <Kyra Barahona 03/23/18 09:42> Suicide Plan Description: No Plan <Kyra Barahona 03/23/18 09:42> *Family Hx:: Coronary Artery Disease, Heart Attack, Hyperlipidemia, Hypertension, Stroke <Kyra Barahona 03/23/18 09:42> Review of Systems - Constitutional Reports lack of energy, Reports weakness, Denies fever(s), Denies headache(s) <JunKyra 03/23/18 09:42> - ENT Denies sore throat <Kyra Barahona 03/23/18 09:42> - *Cardiovascular Reports chest pain, Reports chest pain at rest, Reports shortness of breath, Reports radiating jaw, neck or arm pain, Denies irregular heart rhythm <Kyra Barahona 03/23/18 09:42> - *Respiratory Reports shortness of breath, Denies cough <Kyra Barahona 03/23/18 09:42> - *Gastrointestinal Denies abdominal pain, Denies heartburn, Denies vomiting blood, Denies black, tarry stools, Denies nausea, Denies vomiting <JunKyra 03/23/18 09:42> - *Genitourinary Denies difficulty urinating <Kyra Barahona 03/23/18 09:42> - *Musculoskeletal Reports joint pain <Kyra Barahona 03/23/18 09:42> Meds Home Medications Medication Instructions Recorded Confirmed Type Cyclobenzaprine HCl 10 mg PO BIDP PRN 07/17/17 03/23/18 History [Cyclobenzaprine 10mg Tab] Methocarbamol [Methocarbamol 500mg 500 mg PO QID 07/17/17 03/23/18 History Tablet] Omeprazole [Omeprazole 20mg 20 mg PO DAILY 07/17/17 03/23/18 History Capsule] Oxycodone HCl [Oxycodone (IR) 30mg 30 mg PO Q6HP PRN 07/17/17 03/23/18 History Tab] Umeclidinium Brm/Vilanterol Tr 1 each IH BID 07/17/17 03/23/18 History [Anoro Ellipta 62.5-25 Mcg INH] Aspirin [Aspirin 81mg chewable 81 mg PO DAILY 07/18/17 03/23/18 History tab] Albuterol Sulfate [Albuterol 2.5 mg IH QID PRN 10/05/17 03/23/18 History Sulfate 2.5mg/0.5ml Neb] Ferrous Sulfate 325 mg PO TID 10/05/17 03/23/18 History Bisoprolol Fumarate [Bisoprolol 5 mg PO BID 03/23/18 03/23/18 History 5mg Tablet] Clopidogrel Bisulfate [Plavix 75mg 75 mg PO DAILY 03/23/18 03/23/18 History Tab] Gabapentin [Gabapentin 800mg Tab] 800 mg PO QID 03/23/18 03/23/18 History Metformin HCl 1,000 mg PO BID 03/23/18 03/23/18 History Montelukast Sodium [Montelukast 10 mg PO HS 03/23/18 03/23/18 History 10mg Tab] Pravastatin Sodium [Pravachol 20mg 20 mg PO DAILY 03/23/18 03/23/18 History Tablet] <Armani Mathews - 03/23/18 11:45> Allergies Allergy/AdvReac Type Severity Reaction Status Date / Time No Known Allergies Allergy Verified 02/03/18 11:06 <Armani Mathews - 03/23/18 11:45> Exam Vital signs and Labs for Last 24 Hours: Temp Pulse Resp BP Pulse Ox 97.8 F 72 18 136/70 99 03/23/18 11:36 03/23/18 11:36 03/23/18 11:36 03/23/18 11:36 03/23/18 11:36 Laboratory Results - last 24 hr 03/23/18 01:30: WBC 7.6, RBC 4.29 L, Hgb 11.6 L, Hct 37.4 L, MCV 87.2, MCH 27.0, MCHC 30.9 L, RDW 16.2, Plt Count 259, MPV 8.3, Neut % (Auto) 78.5, Lymph % (Auto) 12.8, Terry % (Auto) 6.4, Eos % (Auto) 2.1, Baso % (Auto) 0.2, Neut # (Auto) 6.0, Lymph # (Auto) 1.0, Terry # (Auto) 0.5, Eos # (Auto) 0.2, Baso # (Auto) 0.0 03/23/18 01:30: Sodium 140, Potassium 4.0, Chloride 104, Carbon Dioxide 31, Anion Gap 9.0, BUN 14, Creatinine 1.40 H, Estimated Creat Clear 76, Estimated GFR 49 L, Est GFR ( Amer) 60, Glucose 155 H, Calcium 8.3 L, Troponin I < 0.02 03/23/18 01:30: D-Dimer 187 03/23/18 01:30: Magnesium 1.9 03/23/18 01:30: PT 10.2, INR 0.99 03/23/18 01:30: Total Bilirubin 0.5, Direct Bilirubin 0.1, Indirect Bilirubin 0.4, AST 9 L, ALT 20, Alkaline Phosphatase 88, Total Protein 7.2, Albumin 3.1 L <Armani Mathews - 03/23/18 11:45> Temp Pulse Resp BP Pulse Ox 98.8 F 69 20 122/76 91 L 03/23/18 07:44 03/23/18 07:44 03/23/18 07:44 03/23/18 07:44 03/23/18 07:44 Laboratory Results - last 24 hr 03/23/18 01:30: WBC 7.6, RBC 4.29 L, Hgb 11.6 L, Hct 37.4 L, MCV 87.2, MCH 27.0, MCHC 30.9 L, RDW 16.2, Plt Count 259, MPV 8.3, Neut % (Auto) 78.5, Lymph % (Auto) 12.8, Terry % (Auto) 6.4, Eos % (Auto) 2.1, Baso % (Auto) 0.2, Neut # (Auto) 6.0, Lymph # (Auto) 1.0, Terry # (Auto) 0.5, Eos # (Auto) 0.2, Baso # (Auto) 0.0 03/23/18 01:30: Sodium 140, Potassium 4.0, Chloride 104, Carbon Dioxide 31, Anion Gap 9.0, BUN 14, Creatinine 1.40 H, Estimated Creat Clear 76, Estimated GFR 49 L, Est GFR ( Amer) 60, Glucose 155 H, Calcium 8.3 L, Troponin I < 0.02 03/23/18 01:30: D-Dimer 187 03/23/18 01:30: Magnesium 1.9 03/23/18 01:30: PT 10.2, INR 0.99 03/23/18 01:30: Total Bilirubin 0.5, Direct Bilirubin 0.1, Indirect Bilirubin 0.4, AST 9 L, ALT 20, Alkaline Phosphatase 88, Total Protein 7.2, Albumin 3.1 L <Kyra Barahona - 03/23/18 09:42> I & O for Last 24 hours: Intake & Output 03/20/18 03/21/18 03/22/18 03/23/18 11:59 11:59 11:59 11:59 Intake Total 360 / 360 Balance 360 / 360 Weight 290 lb 5 oz <Armani Mathews - 03/23/18 11:45> Intake & Output 03/20/18 03/21/18 03/22/18 03/23/18 11:59 11:59 11:59 11:59 Intake Total 360 / 360 Balance 360 / 360 Weight 290 lb 5 oz <Kyra Barahona 03/23/18 09:42> - Constitutional no acute distress <Kyra Barahona 03/23/18 09:42> Comments: Sitting in comfort chair at bedside. Appears comfortable <Kyra Barahona 03/23/18 09:42> - *Routine HEENT Exam Head: Present: normocephalic, atraumatic <Kyra Barahona 03/23/18 09:42> Eye: Present: PERRL. Absent: conjunctival icterus, scleral injection <Kyra Barahona 03/23/18 09:42> ENT: Present: mucous membranes moist <Kyra Barahona 03/23/18 09:42> - *Routine Neck Exam Present: supple. Absent: carotid bruit, lymphadenopathy, thyromegaly <Kyra Barahona 03/23/18 09:42> - *Routine Respiratory Exam Comments: Bilateral basilar crackles. <Kyra Barahona 03/23/18 09:42> - *Routine Cardiovascular Exam Present: RRR <Kyra Barahona 03/23/18 09:42> - *Routine Abdominal Exam Present: normoactive bowel sounds. Absent: tenderness <Kyra Barahona 03/23/18 09:42> Comments: Obese <Kyra Barahona 03/23/18 09:42> - *Routine Extremities Exam Present: edema (bilateral lower leg with skin changes; excoriation of lower legs) <Kyra Barahona 03/23/18 09:42> - *Routine Neurological Exam Present: alert, oriented X3 <Kyra Barahona 03/23/18 09:42> Assessment and Plan (1) Type 2 diabetes mellitus Current visit: Yes Status: Acute Category: Medical Code(s): E11.9 - Type 2 diabetes mellitus without complications (2) Chest pain Current visit: Yes Status: Acute Category: Medical Code(s): R07.9 - Chest pain, unspecified (3) CAD (coronary artery disease) Current visit: No Status: Chronic Qualifiers: Coronary Disease-Associated Artery/Lesion type: campo artery [place] vs. transplanted heart: campo heart Associated angina: with other forms of angina Qualified Code(s): I25.118 - Atherosclerotic heart disease of campo coronary artery with other forms of angina pectoris Category: Medical Code(s): I25.10 - Atherosclerotic heart disease of campo coronary artery without angina pectoris (4) Cardiomyopathy Current visit: No Status: Chronic Category: Medical Code(s): I42.9 - Cardiomyopathy, unspecified (5) Congestive heart failure Current visit: No Status: Chronic Qualifiers: Heart failure type: unspecified Heart failure chronicity: unspecified Qualified Code(s): I50.9 - Heart failure, unspecified Category: Medical Code(s): I50.9 - Heart failure, unspecified (6) Hyperlipidemia Current visit: No Status: Chronic Qualifiers: Hyperlipidemia type: other hyperlipidemia Qualified Code(s): E78.4 - Other hyperlipidemia Category: Medical Code(s): E78.5 - Hyperlipidemia, unspecified (7) Hypertension Current visit: No Status: Chronic Qualifiers: Hypertension type: essential hypertension Qualified Code(s): I10 - Essential (primary) hypertension Category: Medical Code(s): I10 - Essential (primary) hypertension (8) Renal insufficiency Current visit: No Status: Chronic Category: Medical Code(s): N28.9 - Disorder of kidney and ureter, unspecified <Armani Mathews - 03/23/18 11:45> (1) Type 2 diabetes mellitus Current visit: Yes Status: Acute Category: Medical Code(s): E11.9 - Type 2 diabetes mellitus without complications (2) Chest pain Current visit: Yes Status: Acute Category: Medical Code(s): R07.9 - Chest pain, unspecified (3) CAD (coronary artery disease) Current visit: No Status: Chronic Qualifiers: Coronary Disease-Associated Artery/Lesion type: campo artery [place] vs. transplanted heart: campo heart Associated angina: with other forms of angina Qualified Code(s): I25.118 - Atherosclerotic heart disease of campo coronary artery with other forms of angina pectoris Category: Medical Code(s): I25.10 - Atherosclerotic heart disease of campo coronary artery without angina pectoris (4) Cardiomyopathy Current visit: No Status: Chronic Category: Medical Code(s): I42.9 - Cardiomyopathy, unspecified (5) Congestive heart failure Current visit: No Status: Chronic Qualifiers: Heart failure type: unspecified Heart failure chronicity: unspecified Qualified Code(s): I50.9 - Heart failure, unspecified Category: Medical Code(s): I50.9 - Heart failure, unspecified (6) Hyperlipidemia Current visit: No Status: Chronic Qualifiers: Hyperlipidemia type: other hyperlipidemia Qualified Code(s): E78.4 - Other hyperlipidemia Category: Medical Code(s): E78.5 - Hyperlipidemia, unspecified (7) Hypertension Current visit: No Status: Chronic Qualifiers: Hypertension type: essential hypertension Qualified Code(s): I10 - Essential (primary) hypertension Category: Medical Code(s): I10 - Essential (primary) hypertension (8) Renal insufficiency Current visit: No Status: Chronic Category: Medical Code(s): N28.9 - Disorder of kidney and ureter, unspecified <Kyra Barahona - 03/23/18 11:08> - Assessment and plan all Dx Assessment and Plan for all problems:: Saw patient, agree with above note. <Armani Mathews - 03/23/18 11:45> CT of chest and CXR results are pending; Pt is followed by Dr. Pratt and Cardiology will see pt; will wait on their recommendations; has been started on sliding scale insulin and some of home meds <Kyra Barahona - 03/23/18 11:19>
--- NOTE | 2018-03-23 16:04 | Consult Report ---
History of Present Illness Consult date: 03/23/18 Requesting physician: Armani Mathews Consult reason: chest pain, congestive heart failure, shortness of breath Chief complaint: Shortness of breath and edema of the lower extremities Additional Medical History:: 1. Dyspnea 2. Edema of the lower extremities. 3. Cardiomyopathy 4. NYHA class II and ACC/AHA stage C acute chronic systolic congestive heart failure a. Echocardiogram on 02/20/2018 revealed EF of 45% with segmental wall motion abnormality. 5. Coronary artery disease involving [place] coronary artery of [place] heart with other form of angina pectoris a. Drug-eluting stent deployment to the proximal LAD on 07/18/2017. b. Severe left ventricular dilation with severely reduced ejection fraction and severe critically elevated LVEDP (07/08/17) 6. Hypertension 7. Hyperlipidemia 8. Type 11 diabetes with complication unspecified long-term insulin usage History of present illness: 37-year-old male presented to the emergency room on 03/23/2018 increased shortness of breath and chest pain. Patient stated for the past few days he has been having this increased shortness of breath and swelling of his lower extremities. 2+ pedal edema noted of the lower extremities. Patient does have an santos wrap on his lower extremity due to an open wound. Patient was last seen in the cardiology clinic on 03/10/2018 no complaints were noted at that time. Patient had stopped his diuretics in which he was taking for his severe LVEDP. Patient stated in the last few days he has gained about 8 pounds due to not taken his diuretics. Initial EKG revealed normal sinus rhythm with no acute changes with heart rate of 85 bpm. Creatinine 1.40 and BUN 14. Initial chest x-ray revealed: . mild CHF & pulmonary edema likely present, superimposed upon chronic changes . Small bilateral pleural effusions right greater than left. Borderline to mild cardiomegaly. Possible additional focal infiltrate left infrahilar region/ medial left base. Questionable infiltrate right infrahilar region medial right base Vital signs are stable. Will start patient back on Lasix 80 mg twice daily IVP for diuresis due to elevated LVEDP. Last echocardiogram was from 02/20/2018 which revealed an EF of 45% with segmental wall motion abnormality. Due to patient having class III angina symptoms and increased swelling of his lower extremities along with the shortness of breath recommend heart catheterization to assess for LV function and patency of stent. Discussed with patient the risk and benefits of left heart catheterization with right wrist access. Patient is agreeable to procedure. Will schedule procedure in a.m.. Patient will need to be n.p.o. after midnight tonight for his procedure in the morning. Case was discussed with Dr. Pratt. [facility] History Medical History: Reports:: Cardiomyopathy, Congestive Heart Failure, Congenital Heart Disease, Coronary Artery Disease, Diabetes Mellitus Type 2, Hyperlipidemia, Hypertension, Renal Insufficiency Denies:: Cancer, Diabetes Mellitus Type 1, Internal Pacemaker, MRSA, Seizures Other Medical History: Reports: Arthritis. Denies: Blood Transfusion Reaction Other Surgeries: Yes: Appendectomy, Coronary Stent, Other. No: Pacemaker Amputation: No Fractures: No - *Social History Smoking Status: Former smoker Tobacco Type: cigarettes Alcohol Intake: never Alcohol Intake Frequency:: other Substance Use Type: denies use Occupational Status: retired, other Household Members: spouse - Psychiatric History Expresses thoughts of harming self/others: None Suicide Plan Description: No Plan *Family Hx:: Coronary Artery Disease, Heart Attack, Hyperlipidemia, Hypertension, Stroke Meds Home Medications Medication Instructions Recorded Confirmed Type Cyclobenzaprine HCl 10 mg PO BIDP PRN 07/17/17 03/23/18 History [Cyclobenzaprine 10mg Tab] Methocarbamol [Methocarbamol 500mg 500 mg PO QID 07/17/17 03/23/18 History Tablet] Omeprazole [Omeprazole 20mg 20 mg PO DAILY 07/17/17 03/23/18 History Capsule] Oxycodone HCl [Oxycodone (IR) 30mg 30 mg PO Q6HP PRN 07/17/17 03/23/18 History Tab] Umeclidinium Brm/Vilanterol Tr 1 each IH BID 07/17/17 03/23/18 History [Anoro Ellipta 62.5-25 Mcg INH] Aspirin [Aspirin 81mg chewable 81 mg PO DAILY 07/18/17 03/23/18 History tab] Albuterol Sulfate [Albuterol 2.5 mg IH QID PRN 10/05/17 03/23/18 History Sulfate 2.5mg/0.5ml Neb] Ferrous Sulfate 325 mg PO TID 10/05/17 03/23/18 History Bisoprolol Fumarate [Bisoprolol 5 mg PO BID 03/23/18 03/23/18 History 5mg Tablet] Clopidogrel Bisulfate [Plavix 75mg 75 mg PO DAILY 03/23/18 03/23/18 History Tab] Gabapentin [Gabapentin 800mg Tab] 800 mg PO QID 03/23/18 03/23/18 History Metformin HCl 1,000 mg PO BID 03/23/18 03/23/18 History Montelukast Sodium [Montelukast 10 mg PO HS 03/23/18 03/23/18 History 10mg Tab] Pravastatin Sodium [Pravachol 20mg 20 mg PO DAILY 03/23/18 03/23/18 History Tablet] Allergies Allergy/AdvReac Type Severity Reaction Status Date / Time No Known Allergies Allergy Verified 02/03/18 11:06 Review of Systems - Review of Systems Review of systems:: pertinent systems reviewed and negative unless documented below - Constitutional Reports fatigue, Reports lack of energy, Reports weakness, Reports weight gain - *Cardiovascular Reports chest pain, Reports chest pain at rest, Reports chest pain with activity, Reports shortness of breath, Reports shortness of breath with activity, Reports generalized swelling, Denies rapid, pounding, or irregular heartbeat, Denies radiating jaw, neck or arm pain - *Respiratory Reports shortness of breath, Reports shortness of breath with activity, Denies chest congestion, Denies cough - *Gastrointestinal Reports bloating, Denies abdominal pain - *Neurologic Reports weakness, Denies headache(s), Denies dizziness Exam Vital signs and Labs for Last 24 Hours: Temp Pulse Resp BP Pulse Ox 98.1 F 70 20 144/63 91 L 03/23/18 15:39 03/23/18 15:39 03/23/18 15:39 03/23/18 15:39 03/23/18 15:39 Laboratory Results - last 24 hr 03/23/18 01:30: WBC 7.6, RBC 4.29 L, Hgb 11.6 L, Hct 37.4 L, MCV 87.2, MCH 27.0, MCHC 30.9 L, RDW 16.2, Plt Count 259, MPV 8.3, Neut % (Auto) 78.5, Lymph % (Auto) 12.8, [place] % (Auto) 6.4, Eos % (Auto) 2.1, Baso % (Auto) 0.2, Neut # (Auto) 6.0, Lymph # (Auto) 1.0, [place] # (Auto) 0.5, Eos # (Auto) 0.2, Baso # (Auto) 0.0 03/23/18 01:30: Sodium 140, Potassium 4.0, Chloride 104, Carbon Dioxide 31, Anion Gap 9.0, BUN 14, Creatinine 1.40 H, Estimated Creat Clear 76, Estimated GFR 49 L, Est GFR ( Amer) 60, Glucose 155 H, Calcium 8.3 L, Troponin I < 0.02 03/23/18 01:30: D-Dimer 187 03/23/18 01:30: Magnesium 1.9 03/23/18 01:30: PT 10.2, INR 0.99 03/23/18 01:30: Total Bilirubin 0.5, Direct Bilirubin 0.1, Indirect Bilirubin 0.4, AST 9 L, ALT 20, Alkaline Phosphatase 88, Total Protein 7.2, Albumin 3.1 L I & O for Last 24 hours: Intake & Output 03/20/18 03/21/18 03/22/18 03/23/18 23:59 23:59 23:59 23:59 Intake Total 720 / 720 Balance 720 / 720 Weight 290 lb 5.016 oz - Constitutional mild distress, obese, cooperative - *Routine HEENT Exam ENT: Present: mucous membranes moist - *Routine Neck Exam Present: supple, full ROM, normal carotid upstroke. Absent: JVD, carotid bruit, lymphadenopathy, trachea midline - Routine Chest/Breast/Axilla Exam Chest wall: Absent: mass - *Routine Respiratory Exam Present: accessory muscle use, CTA bilaterally. Absent: respiratory distress - *Routine Cardiovascular Exam Present: RRR, Normal S1, Normal S2. Absent: murmur, gallop, rubs, click, jesus cardia, tachycardia, irregular rhythm, JVD - *Routine Abdominal Exam Present: soft, normoactive bowel sounds, firm. Absent: tenderness - *Routine Extremities Exam Present: edema, full ROM, pulses intact, normal capillary refill. Absent: cyanosis, clubbing - *Routine Neurological Exam Present: alert, oriented X3, CN II-XII intact, moving all extremities, normal speech Assessment and Plan (1) Type 2 diabetes mellitus Current visit: Yes Status: Acute Category: Medical Code(s): E11.9 - Type 2 diabetes mellitus without complications (2) Chest pain Current visit: Yes Status: Acute Category: Medical Code(s): R07.9 - Chest pain, unspecified (3) CAD (coronary artery disease) Current visit: No Status: Chronic Qualifiers: Coronary Disease-Associated Artery/Lesion type: [place] artery [place] vs. transplanted heart: [place] heart Associated angina: with other forms of angina Qualified Code(s): I25.118 - Atherosclerotic heart disease of [place] coronary artery with other forms of angina pectoris Category: Medical Code(s): I25.10 - Atherosclerotic heart disease of [place] coronary artery without angina pectoris (4) Cardiomyopathy Current visit: No Status: Chronic Category: Medical Code(s): I42.9 - Cardiomyopathy, unspecified (5) Congestive heart failure Current visit: No Status: Chronic Qualifiers: Heart failure type: unspecified Heart failure chronicity: unspecified Qualified Code(s): I50.9 - Heart failure, unspecified Category: Medical Code(s): I50.9 - Heart failure, unspecified (6) Hyperlipidemia Current visit: No Status: Chronic Qualifiers: Hyperlipidemia type: other hyperlipidemia Qualified Code(s): E78.4 - Other hyperlipidemia Category: Medical Code(s): E78.5 - Hyperlipidemia, unspecified (7) Hypertension Current visit: No Status: Chronic Qualifiers: Hypertension type: essential hypertension Qualified Code(s): I10 - Essential (primary) hypertension Category: Medical Code(s): I10 - Essential (primary) hypertension (8) Renal insufficiency Current visit: No Status: Chronic Category: Medical Code(s): N28.9 - Disorder of kidney and ureter, unspecified - Assessment and plan all Dx Assessment and Plan for all problems:: Plan: 1. Start Lasix 80mg IVP BID for elevated LVEDP. 2. Schedule pt for Left Heart catheterization in am to assess for LV function and Class III angina. 3. Will defer medication changes until left heart catheterization is performed in a.m..
[2018-03-24 07:06] LABS: Basophils % 0.1 % (0.1-2.0); Eosinophils # 0.1 K/mm3 (0.0-0.4); Eosinophils % 2.2 % (0.1-12.0); Hematocrit 32.2 % (42.0-52.0); Hemoglobin 9.9 g/dL (14.1-18.0); Lymphocytes # 0.8 K/mm3 (0.7-4.5); Lymphocytes % 12.7 K/mm3 (10-50); Mean Corpuscular HGB Conc 30.7 g/dL (31.8-35.4); Mean Corpuscular Hemoglobin 27.2 pg (27.0-31.2); Mean Corpuscular Volume 88.6 fl (80-94); Mean Platelet Volume 8.1 fl (7.4-10.4); Monocytes # 0.7 K/mm3 (0.1-1.0); Monocytes % 11.1 % (1.7-9.3); Neutrophils # 4.8 K/mm3 (1.8-7.8); Neutrophils % 73.9 % (37.0-80.0); Platelet Count 259 K/mm3 (142-424); Red Blood Count 3.63 M/mm3 (4.60-6.20); Red Cell Distribution Width 15.9 % (11.5-17.5); White Blood Count 6.4 K/mm3 (4.8-10.8)
[2018-03-24 07:20] LABS: Albumin Level 3.1 gm/dL (3.4-5.0); Albumin/Globulin Ratio 0.8 (1.1-1.8); Anion Gap 8.7 mEq/L (5-15); Bilirubin,Total 0.5 mg/dL (0.2-1.0); Potassium 3.7 mmoL/L (3.5-5.1); Total Protein,Serum 7.1 gm/dL (6.4-8.2)
--- NOTE | 2018-03-24 08:00 | Progress Note ---
<Kyra Barahona - Last Filed: 03/24/18 07:57> Internal Medicine - PN: Subj *Date: 03/24/18 *Time: 07:30 Interval history: Patient is worn out. He is sitting in recliner awaiting cardiac catheterization. He has been voiding frequently due to IV diuretics. He does walk to the bathroom. He denies any further chest pain. He has felt like he is choking due to gown tied tightly around his neck this was loosened. He feels his legs are better. He is n.p.o. Exam Vital signs and Labs for Last 24 Hours: Temp Pulse Resp BP Pulse Ox 98.3 F 68 18 119/55 94 L 03/24/18 04:00 03/24/18 04:00 03/24/18 04:00 03/24/18 04:00 03/24/18 04:00 Laboratory Results - last 24 hr 03/23/18 16:57: POC Glucose 214 H 03/23/18 20:32: POC Glucose 281 H 03/24/18 06:38: POC Glucose 174 H 03/24/18 06:40: WBC 6.4, RBC 3.63 L, Hgb 9.9 L, Hct 32.2 L, MCV 88.6, MCH 27.2, MCHC 30.7 L, RDW 15.9, Plt Count 259, MPV 8.1, Neut % (Auto) 73.9, Lymph % (Auto) 12.7, [place] % (Auto) 11.1 H, Eos % (Auto) 2.2, Baso % (Auto) 0.1, Neut # (Auto) 4.8, Lymph # (Auto) 0.8, [place] # (Auto) 0.7, Eos # (Auto) 0.1, Baso # (Auto) 0.0 03/24/18 06:40: Sodium 137, Potassium 3.7, Chloride 100, Carbon Dioxide 32, Anion Gap 8.7, BUN 15, Creatinine 1.48 H, Estimated Creat Clear 42, Estimated GFR 46 L, Est GFR ( Amer) 56 L, Glucose 213 H, Calcium 8.0 L, Magnesium 1.7 D, Total Bilirubin 0.5, AST 8 L, ALT 18, Alkaline Phosphatase 81, Total Protein 7.1, Albumin 3.1 L, Globulin 4.0 H, Albumin/Globulin Ratio 0.8 L I & O for Last 24 hours: Intake & Output 03/21/18 03/22/18 03/23/18 03/24/18 11:59 11:59 11:59 11:59 Intake Total 360 / 360 1200 / 1200 Output Total 5250 / 5250 Balance 360 / 360 -4050 / -4050 Weight 290 lb 5 oz 278 lb 0.046 oz Radiology Reports for the Last 24 Hours: 03/23/2018 chest x-ray IMPRESSION . mild CHF & pulmonary edema likely present, superimposed upon chronic changes . Small bilateral pleural effusions right greater than left. Borderline to mild cardiomegaly. Possible additional focal infiltrate left infrahilar region/ medial left base. Questionable infiltrate right infrahilar region medial right base - Constitutional no acute distress Comments: Patient feels like he is choking. Neck tie of gown removed - *Routine Respiratory Exam Comments: Few bibasilar crackles - *Routine Cardiovascular Exam Present: RRR - *Routine Abdominal Exam Present: normoactive bowel sounds. Absent: tenderness Comments: Obese and protuberant - *Routine Extremities Exam Comments: Legs are less tight. No drainage from openings. - *Routine Skin Exam Comments: Skin of bilateral lower extremities with rough texture - *Routine Neurological Exam Present: alert, oriented X3 Assessment and Plan (1) Type 2 diabetes mellitus Current visit: Yes Status: Acute Category: Medical Code(s): E11.9 - Type 2 diabetes mellitus without complications (2) Chest pain Current visit: Yes Status: Acute Category: Medical Code(s): R07.9 - Chest pain, unspecified (3) CAD (coronary artery disease) Current visit: No Status: Chronic Qualifiers: Coronary Disease-Associated Artery/Lesion type: [place] artery [place] vs. transplanted heart: [place] heart Associated angina: with other forms of angina Qualified Code(s): I25.118 - Atherosclerotic heart disease of [place] coronary artery with other forms of angina pectoris Category: Medical Code(s): I25.10 - Atherosclerotic heart disease of [place] coronary artery without angina pectoris (4) Cardiomyopathy Current visit: No Status: Chronic Category: Medical Code(s): I42.9 - Cardiomyopathy, unspecified (5) Congestive heart failure Current visit: No Status: Chronic Qualifiers: Heart failure type: unspecified Heart failure chronicity: unspecified Qualified Code(s): I50.9 - Heart failure, unspecified Category: Medical Code(s): I50.9 - Heart failure, unspecified (6) Hyperlipidemia Current visit: No Status: Chronic Qualifiers: Hyperlipidemia type: other hyperlipidemia Qualified Code(s): E78.4 - Other hyperlipidemia Category: Medical Code(s): E78.5 - Hyperlipidemia, unspecified (7) Hypertension Current visit: No Status: Chronic Qualifiers: Hypertension type: essential hypertension Qualified Code(s): I10 - Essential (primary) hypertension Category: Medical Code(s): I10 - Essential (primary) hypertension (8) Renal insufficiency Current visit: No Status: Chronic Category: Medical Code(s): N28.9 - Disorder of kidney and ureter, unspecified - Assessment and plan all Dx Assessment and Plan for all problems:: Will have a cardiac catheterization this morning. Cardiac medications as per cardiology <Armani Mathews - Last Filed: 03/24/18 09:16> Exam Vital signs and Labs for Last 24 Hours: Temp Pulse Resp BP Pulse Ox 97.7 F 64 18 133/60 96 03/24/18 08:19 03/24/18 08:19 03/24/18 08:19 03/24/18 08:19 03/24/18 08:19 Laboratory Results - last 24 hr 03/23/18 16:57: POC Glucose 214 H 03/23/18 20:32: POC Glucose 281 H 03/24/18 06:38: POC Glucose 174 H 03/24/18 06:40: WBC 6.4, RBC 3.63 L, Hgb 9.9 L, Hct 32.2 L, MCV 88.6, MCH 27.2, MCHC 30.7 L, RDW 15.9, Plt Count 259, MPV 8.1, Neut % (Auto) 73.9, Lymph % (Auto) 12.7, [place] % (Auto) 11.1 H, Eos % (Auto) 2.2, Baso % (Auto) 0.1, Neut # (Auto) 4.8, Lymph # (Auto) 0.8, [place] # (Auto) 0.7, Eos # (Auto) 0.1, Baso # (Auto) 0.0 09/25/18 06:40: Sodium 137, Potassium 3.7, Chloride 100, Carbon Dioxide 32, Anion Gap 8.7, BUN 15, Creatinine 1.48 H, Estimated Creat Clear 42, Estimated GFR 46 L, Est GFR ( Amer) 56 L, Glucose 213 H, Calcium 8.0 L, Magnesium 1.7 D, Total Bilirubin 0.5, AST 8 L, ALT 18, Alkaline Phosphatase 81, Total Protein 7.1, Albumin 3.1 L, Globulin 4.0 H, Albumin/Globulin Ratio 0.8 L 03/24/18 08:35: WBC 6.9, RBC 4.42 L, Hgb 11.9 L D, Hct 38.7 L, MCV 87.5, MCH 26.8 L, MCHC 30.6 L, RDW 15.8, Plt Count 257, MPV 7.7, Neut % (Auto) 82.4 H, Lymph % (Auto) 10.2, [place] % (Auto) 5.5, Eos % (Auto) 1.8, Baso % (Auto) 0.1, Neut # (Auto) 5.7, Lymph # (Auto) 0.7, [place] # (Auto) 0.4, Eos # (Auto) 0.1, Baso # (Auto) 0.0 03/24/18 08:35: Sodium 138, Potassium 4.3, Chloride 100, Carbon Dioxide 33 H, Anion Gap 9.3, BUN 16, Creatinine 1.46 H, Estimated Creat Clear 42, Estimated GFR 47 L, Est GFR ( Amer) 57 L, Glucose 232 H, Calcium 8.4 L I & O for Last 24 hours: Intake & Output 03/21/18 03/22/18 03/23/18 03/24/18 11:59 11:59 11:59 11:59 Intake Total 360 / 360 1200 / 1200 Output Total 5250 / 5250 Balance 360 / 360 -4050 / -4050 Weight 290 lb 5 oz 278 lb 0.046 oz Assessment and Plan (1) Type 2 diabetes mellitus Current visit: Yes Status: Acute Category: Medical Code(s): E11.9 - Type 2 diabetes mellitus without complications (2) Chest pain Current visit: Yes Status: Acute Category: Medical Code(s): R07.9 - Chest pain, unspecified (3) CAD (coronary artery disease) Current visit: No Status: Chronic Qualifiers: Coronary Disease-Associated Artery/Lesion type: [place] artery [place] vs. transplanted heart: [place] heart Associated angina: with other forms of angina Qualified Code(s): I25.118 - Atherosclerotic heart disease of [place] coronary artery with other forms of angina pectoris Category: Medical Code(s): I25.10 - Atherosclerotic heart disease of [place] coronary artery without angina pectoris (4) Cardiomyopathy Current visit: No Status: Chronic Category: Medical Code(s): I42.9 - Cardiomyopathy, unspecified (5) Congestive heart failure Current visit: No Status: Chronic Qualifiers: Heart failure type: unspecified Heart failure chronicity: unspecified Qualified Code(s): I50.9 - Heart failure, unspecified Category: Medical Code(s): I50.9 - Heart failure, unspecified (6) Hyperlipidemia Current visit: No Status: Chronic Qualifiers: Hyperlipidemia type: other hyperlipidemia Qualified Code(s): E78.4 - Other hyperlipidemia Category: Medical Code(s): E78.5 - Hyperlipidemia, unspecified (7) Hypertension Current visit: No Status: Chronic Qualifiers: Hypertension type: essential hypertension Qualified Code(s): I10 - Essential (primary) hypertension Category: Medical Code(s): I10 - Essential (primary) hypertension (8) Renal insufficiency Current visit: No Status: Chronic Category: Medical Code(s): N28.9 - Disorder of kidney and ureter, unspecified - Assessment and plan all Dx Assessment and Plan for all problems:: Saw patient, agree with above note.
[2018-03-24 08:47] LABS: Basophils % 0.1 % (0.1-2.0); Eosinophils # 0.1 K/mm3 (0.0-0.4); Eosinophils % 1.8 % (0.1-12.0); Mean Corpuscular Hemoglobin 26.8 pg (27.0-31.2); Monocytes # 0.4 K/mm3 (0.1-1.0); White Blood Count 6.9 K/mm3 (4.8-10.8)
[2018-03-24 09:07] LABS: Anion Gap 9.3 mEq/L (5-15); Calcium 8.4 mg/dL (8.5-10.1); Potassium 4.3 mmoL/L (3.5-5.1)
[2018-03-24 09:09] LABS: Hematocrit 38.7 % (42.0-52.0); Lymphocytes # 0.7 K/mm3 (0.7-4.5); Lymphocytes % 10.2 K/mm3 (10-50); Mean Corpuscular HGB Conc 30.6 g/dL (31.8-35.4); Mean Corpuscular Volume 87.5 fl (80-94); Mean Platelet Volume 7.7 fl (7.4-10.4); Monocytes % 5.5 % (1.7-9.3); Neutrophils # 5.7 K/mm3 (1.8-7.8); Neutrophils % 82.4 % (37.0-80.0); Platelet Count 257 K/mm3 (142-424); Red Blood Count 4.42 M/mm3 (4.60-6.20); Red Cell Distribution Width 15.8 % (11.5-17.5)
[2018-03-24 09:10] LABS: Hemoglobin 11.9 g/dL (14.1-18.0)
--- NOTE | 2018-03-25 07:54 | Progress Note ---
<Kyra Barahona - Last Filed: 03/25/18 07:51> Internal Medicine - PN: Subj *Date: 03/25/18 *Time: 07:35 Interval history: Patient states he slept better last night and generally feels better. Patient denies chest pain and states his breathing was ok. He is eating without difficulty and and voiding qhs. Ambulating without difficulty. Patient had cardiac cauterization yesterday with report reviewed. Exam Vital signs and Labs for Last 24 Hours: Temp Pulse Resp BP Pulse Ox 97.6 F 60 18 154/65 95 03/25/18 07:29 03/25/18 07:29 03/25/18 07:29 03/25/18 07:29 03/25/18 07:29 Laboratory Results - last 24 hr 03/24/18 08:35: WBC 6.9, RBC 4.42 L, Hgb 11.9 L D, Hct 38.7 L, MCV 87.5, MCH 26. 8 L, MCHC 30.6 L, RDW 15.8, Plt Count 257, MPV 7.7, Neut % (Auto) 82.4 H, Lymph % (Auto) 10.2, [place] % (Auto) 5.5, Eos % (Auto) 1.8, Baso % (Auto) 0.1, Neut # (Auto) 5.7, Lymph # (Auto) 0.7, [place] # (Auto) 0.4, Eos # (Auto) 0.1, Baso # (Auto) 0.0 03/24/18 08:35: Sodium 138, Potassium 4.3, Chloride 100, Carbon Dioxide 33 H, Anion Gap 9.3, BUN 16, Creatinine 1.46 H, Estimated Creat Clear 42, Estimated GFR 47 L, Est GFR ( Amer) 57 L, Glucose 232 H, Calcium 8.4 L 03/24/18 11:12: POC Glucose 192 H 03/24/18 16:35: POC Glucose 235 H 03/24/18 20:15: POC Glucose 273 H 03/25/18 06:28: POC Glucose 209 H I & O for Last 24 hours: Intake & Output 03/22/18 03/23/18 03/24/18 03/25/18 11:59 11:59 11:59 11:59 Intake Total 360 / 360 1200 / 1200 600 / 600 Output Total 5250 / 5250 2650 / 2650 Balance 360 / 360 -4050 / -4050 -2049 / -2049 Weight 290 lb 5 oz 278 lb 0.046 oz 264 lb 12.403 oz Radiology Reports for the Last 24 Hours: 03/24/18 cardiac cath IMPRESSION: 1. Nonflow limiting coronary artery disease as described above 2. Severe left ventricular dysfunction with dilated left ventricle and severely elevated LVEDP consistent with decompensated systolic congestive heart failure PLAN: 1. Patient requires aggressive diuresis 2. Standard therapy for systolic heart failure 3. Patient should be evaluated for possible AICD and possible [employer] if a candidate - Constitutional no acute distress Comments: Patient was sitting in chair eating breakfast. Appears in no apparent distress. - *Routine Respiratory Exam Comments: Patient has bilateral basilar crackles noted. - *Routine Cardiovascular Exam Present: RRR Comments: NSR noted. - *Routine Extremities Exam Present: edema Comments: scaly rough skin noted on bilateral lower extremities. No weeping noted. Leg edema is softer today than yesterday. - *Routine Neurological Exam Present: alert, oriented X3 Assessment and Plan (1) Type 2 diabetes mellitus Current visit: Yes Status: Acute Category: Medical Code(s): E11.9 - Type 2 diabetes mellitus without complications (2) Chest pain Current visit: Yes Status: Acute Category: Medical Code(s): R07.9 - Chest pain, unspecified (3) CAD (coronary artery disease) Current visit: No Status: Chronic Qualifiers: Coronary Disease-Associated Artery/Lesion type: [place] artery [place] vs. transplanted heart: [place] heart Associated angina: with other forms of angina Qualified Code(s): I25.118 - Atherosclerotic heart disease of [place] coronary artery with other forms of angina pectoris Category: Medical Code(s): I25.10 - Atherosclerotic heart disease of [place] coronary artery without angina pectoris (4) Cardiomyopathy Current visit: No Status: Chronic Category: Medical Code(s): I42.9 - Cardiomyopathy, unspecified (5) Congestive heart failure Current visit: No Status: Chronic Qualifiers: Heart failure type: unspecified Heart failure chronicity: unspecified Qualified Code(s): I50.9 - Heart failure, unspecified Category: Medical Code(s): I50.9 - Heart failure, unspecified (6) Hyperlipidemia Current visit: No Status: Chronic Qualifiers: Hyperlipidemia type: other hyperlipidemia Qualified Code(s): E78.4 - Other hyperlipidemia Category: Medical Code(s): E78.5 - Hyperlipidemia, unspecified (7) Hypertension Current visit: No Status: Chronic Qualifiers: Hypertension type: essential hypertension Qualified Code(s): I10 - Essential (primary) hypertension Category: Medical Code(s): I10 - Essential (primary) hypertension (8) Renal insufficiency Current visit: No Status: Chronic Category: Medical Code(s): N28.9 - Disorder of kidney and ureter, unspecified - Assessment and plan all Dx Assessment and Plan for all problems:: Will discharge to home if okay with cardiology. Medications as per cardiology. <Armani Mathews - Last Filed: 03/25/18 08:26> Exam Vital signs and Labs for Last 24 Hours: Temp Pulse Resp BP Pulse Ox 97.6 F 60 18 154/65 95 03/25/18 07:29 03/25/18 07:29 03/25/18 07:29 03/25/18 07:29 03/25/18 07:29 Laboratory Results - last 24 hr 03/24/18 08:35: WBC 6.9, RBC 4.42 L, Hgb 11.9 L D, Hct 38.7 L, MCV 87.5, MCH 26.8 L, MCHC 30.6 L, RDW 15.8, Plt Count 257, MPV 7.7, Neut % (Auto) 82.4 H, Lymph % (Auto) 10.2, [place] % (Auto) 5.5, Eos % (Auto) 1.8, Baso % (Auto) 0.1, Neut # (Auto) 5.7, Lymph # (Auto) 0.7, [place] # (Auto) 0.4, Eos # (Auto) 0.1, Baso # (Auto) 0.0 03/24/18 08:35: Sodium 138, Potassium 4.3, Chloride 100, Carbon Dioxide 33 H, Anion Gap 9.3, BUN 16, Creatinine 1.46 H, Estimated Creat Clear 42, Estimated GFR 47 L, Est GFR ( Amer) 57 L, Glucose 232 H, Calcium 8.4 L 03/24/18 11:12: POC Glucose 192 H 03/24/18 16:35: POC Glucose 235 H 03/24/18 20:15: POC Glucose 273 H 03/25/18 06:28: POC Glucose 209 H I & O for Last 24 hours: Intake & Output 03/22/18 03/23/18 03/24/18 03/25/18 11:59 11:59 11:59 11:59 Intake Total 360 / 360 1200 / 1200 600 / 600 Output Total 5250 / 5250 2650 / 2650 Balance 360 / 360 -4050 / -4050 -205 / -2049 Weight 290 lb 5 oz 278 lb 0.046 oz 264 lb 12.403 oz Assessment and Plan (1) Type 2 diabetes mellitus Current visit: Yes Status: Acute Category: Medical Code(s): E11.9 - Type 2 diabetes mellitus without complications (2) Chest pain Current visit: Yes Status: Acute Category: Medical Code(s): R07.9 - Chest pain, unspecified (3) CAD (coronary artery disease) Current visit: No Status: Chronic Qualifiers: Coronary Disease-Associated Artery/Lesion type: [place] artery [place] vs. transplanted heart: [place] heart Associated angina: with other forms of angina Qualified Code(s): I25.118 - Atherosclerotic heart disease of [place] coronary artery with other forms of angina pectoris Category: Medical Code(s): I25.10 - Atherosclerotic heart disease of [place] coronary artery without angina pectoris (4) Cardiomyopathy Current visit: No Status: Chronic Category: Medical Code(s): I42.9 - Cardiomyopathy, unspecified (5) Congestive heart failure Current visit: No Status: Chronic Qualifiers: Heart failure type: unspecified Heart failure chronicity: unspecified Qualified Code(s): I50.9 - Heart failure, unspecified Category: Medical Code(s): I50.9 - Heart failure, unspecified (6) Hyperlipidemia Current visit: No Status: Chronic Qualifiers: Hyperlipidemia type: other hyperlipidemia Qualified Code(s): E78.4 - Other hyperlipidemia Category: Medical Code(s): E78.5 - Hyperlipidemia, unspecified (7) Hypertension Current visit: No Status: Chronic Qualifiers: Hypertension type: essential hypertension Qualified Code(s): I10 - Essential (primary) hypertension Category: Medical Code(s): I10 - Essential (primary) hypertension (8) Renal insufficiency Current visit: No Status: Chronic Category: Medical Code(s): N28.9 - Disorder of kidney and ureter, unspecified - Assessment and plan all Dx Assessment and Plan for all problems:: Saw patient, agree with above note, need clarification from Cardiology about need for AICD prior to discharge.
--- NOTE | 2018-03-25 09:31 | Progress Note ---
Subjective Date: 03/25/18 Time: : Principal diagnosis: CHF Interval history: 77-year-old white male in chair in no acute distress. Patient states his breathing has improved and he would like to go home. Patient's ejection fraction at the time of the cardiac cath was estimated at 30- 35% however he recently had an echocardiogram within the last month showing an ejection fraction of 45%. Exam Vital signs and Labs for Last 24 Hours: Temp Pulse Resp BP Pulse Ox 97.6 F 60 18 154/65 95 03/25/18 07:29 03/25/18 07:29 03/25/18 07:29 03/25/18 07:29 03/25/18 07:29 Laboratory Results - last 24 hr 03/24/18 11:12: POC Glucose 192 H 03/24/18 16:35: POC Glucose 235 H 03/24/18 20:15: POC Glucose 273 H 03/25/18 06:28: POC Glucose 209 H I & O for Last 24 hours: Intake & Output 03/22/18 03/23/18 03/24/18 03/25/18 11:59 11:59 11:59 11:59 Intake Total 360 / 360 1200 / 1200 600 / 600 Output Total 5250 / 5250 2650 / 2650 Balance 360 / 360 -4050 / -4050 -2050 / -2050 Weight 290 lb 5 oz 278 lb 0.046 oz 264 lb 12.403 oz - *Routine Neck Exam Present: supple. Absent: JVD, carotid bruit - *Routine Respiratory Exam Present: CTA bilaterally. Absent: accessory muscle use, rales, rhonchi, wheezes - *Routine Cardiovascular Exam Present: RRR. Absent: murmur, gallop, rubs - *Routine Extremities Exam Absent: edema, calf tenderness - *Routine Neurological Exam Present: alert, oriented X3, moving all extremities Progress Note: A&P (1) Type 2 diabetes mellitus Status: Acute Current Visit: Yes (2) Chest pain Status: Acute Current Visit: Yes (3) CAD (coronary artery disease) Status: Chronic Current Visit: No (4) Cardiomyopathy Status: Chronic Current Visit: No (5) Congestive heart failure Status: Chronic Current Visit: No (6) Hyperlipidemia Status: Chronic Current Visit: No (7) Hypertension Status: Chronic Current Visit: No (8) Renal insufficiency Status: Chronic Current Visit: No Assessment and Plan for All Diagnoses:: 1. Will not pursue AICD implantation during this hospitalization. Patient had been discontinued off of his diuretics for several days prior to admission due to acute renal insufficiency relating to diuretics and anti-inflammatory medications. We will obtain an echocardiogram as an outpatient for reevaluation of his ejection fraction. 2. Patient could be discharged home on aspirin and Plavix. 3. Patient's Lasix has been changed to 40 mg p.o. twice daily and should be continued as an outpatient with close follow-up of his renal function. We will see him back in 1 week with a BMP at that time. 4. Continue bisoprolol. Will consider restarting MARY or ARB therapy as an outp atient.
--- NOTE | 2018-03-25 21:57 | Discharge Summary ---
General - General Admission date:: 03/23/18 <Armani Mathews - 03/26/18 08:27> 03/23/18 <Viji Mederos - 03/25/18 22:07> Discharge date: 03/25/18 <Viji Mederos - 03/25/18 22:07> HPI HPI: Mr. Ellsworth is a 77-year-old patient of Lenore Holt APRN and Dr. Pratt, mammalogist who presented to the emergency room about 1 AM with ongoing chest pain of about 6 hours duration and shortness of breath. He states the chest pain was severe and radiated up into the neck and was associated with numbness in his bilateral arms. He is on home oxygen but felt his breathing was more difficult. He denies palpitations, nausea or vomiting. He does have ongoing edema of bilateral legs which seems to have been worse lately. He usually wears wraps around both lower extremities. Patient has a history of cardiomyopathy, coronary artery disease, hyperlipidemia, hypertension and diabetes type 2. Recently his diuretics have been adjusted and decreased due to renal issues. ER note is not available but his does state that he had an IV water shot in the emergency room. Patient states that after this he did feel somewhat better. At this particular time he is breathing well and denies chest pain. <GatitoCarlitoa - 03/25/18 22:07> Hospital Course Hospital Course: Cardiology saw the patient and started him on lasix 80mg IVP BID for elevated LVEDP and scheduled pt for a Left Heart catheterization to assess for LV function and Class III angina. The patient's heart cath showed nonflow limiting coronary artery disease and severe left ventricular dysfunction with a dilated left ventricle and severely elevated LVEDP consistent with decompensated systolic congestive heart failure. Cardiology felt the patient wo uld require aggressive diuresis and need to be evaluated for an AICD. His symptoms did improve. His ejection fraction at the time of the cardiac cath was estimated at 30-35%, however he recently had an echocardiogram within the last month showing an ejection fraction of 45%. Cardiology decided to not pursue AICD implantation during this hospitalization. The patient had been discontinued off of his diuretics for several days prior to admission due to acute renal insufficiency relating to diuretics and anti-inflammatory medications. Cardiology felt he would need an echocardiogram as an outpatient for reevaluation of his ejection fraction. He could be discharged home on aspirin and Plavix and his lasix was changed to 40 mg p.o. twice daily. He will f/u with cardiology in 1 week with a BMP at that time. He will need to continue bisoprolol. <Viji Mederos - 03/25/18 22:07> Objective Vital signs: Temp Pulse Resp BP Pulse Ox 97.6 F 90 18 154/65 95 03/25/18 07:29 03/25/18 08:00 03/25/18 07:29 03/25/18 07:29 03/25/18 07:29 <[place],Armani - 03/26/18 08:27> Temp Pulse Resp BP Pulse Ox 97.6 F 90 18 154/65 95 03/25/18 07:29 03/25/18 08:00 03/25/18 07:29 03/25/18 07:29 03/25/18 07:29 <Viji Mederos - 03/25/18 22:07> Narrative: - Constitutional no acute distress Comments: Sitting in comfort chair at bedside. Appears comfortable - *Routine HEENT Exam Head: Present: normocephalic, atraumatic Eye: Present: PERRL. Absent: conjunctival icterus, scleral injection ENT: Present: mucous membranes moist - *Routine Neck Exam Present: supple. Absent: carotid bruit, lymphadenopathy, thyromegaly - *Routine Respiratory Exam Comments: Bilateral basilar crackles. - *Routine Cardiovascular Exam Present: RRR - *Routine Abdominal Exam Present: normoactive bowel sounds. Absent: tenderness Comments: Obese - *Routine Extremities Exam Present: edema (bilateral lower leg with skin changes; excoriation of lower legs) - *Routine Neurological Exam Present: alert, oriented X3 <Viji Mederos - 03/25/18 22:07> Results Labs on day of discharge: Labs from last 24 hours 03/25/18 11:27 POC Glucose 216 H <Armani Mathews - 03/26/18 08:27> Labs from last 24 hours 03/25/18 03/25/18 11:27 06:28 POC Glucose 216 H 209 H <Viji Mederos - 03/25/18 22:07> DS: Diagnosis - Discharge Diagnosis (1) Type 2 diabetes mellitus Status: Acute (2) Chest pain Status: Acute (3) CAD (coronary artery disease) Status: Chronic (4) Cardiomyopathy Status: Chronic (5) Congestive heart failure Status: Chronic (6) Hyperlipidemia Status: Chronic (7) Hypertension Status: Chronic (8) Renal insufficiency Status: Chronic <GatitoViji 03/25/18 21:53> (1) Acute systolic (congestive) heart failure Status: Acute (2) Type 2 diabetes mellitus Status: Acute (3) Chest pain Status: Acute (4) CAD (coronary artery disease) Status: Chronic (5) Cardiomyopathy Status: Chronic (6) Congestive heart failure Status: Chronic (7) Hyperlipidemia Status: Chronic (8) Hypertension Status: Chronic (9) Renal insufficiency Status: Chronic <ReidArmani 03/26/18 08:27> Discharge Plan - Patient Discharge Instructions ACTIVITY: Continue current activity <DaquancjViji 03/25/18 22:07> DIET: low fat, low cholesterol, low salt diet, cardiac <DaquancjViji 03/25/18 22:07> Patient Instructions: Type 2 Diabetes, DI for Chest Pain, Low-Sodium Diet, DI for Coronary Artery Disease <ReidArmani 03/26/18 08:27> Forms: <ReidArmani 03/26/18 08:27> - Follow up Plan Follow up with: Lyle Pratt MD [Staff Physician] - 1 week Lenore Holt APRN [Primary Care Provider] - 2 weeks <[place],Armani 03/26/18 08:27> Disposition: Home, Self-Care <[place],Armani 03/26/18 08:27> Home Medications: Home Medications Medication Instructions Recorded Confirmed Type Cyclobenzaprine HCl 10 mg PO BIDP PRN 07/17/17 03/23/18 History [Cyclobenzaprine 10mg Tab] Methocarbamol [Methocarbamol 500mg 500 mg PO QID 07/17/17 03/23/18 History Tablet] Omeprazole [Omeprazole 20mg 20 mg PO DAILY 07/17/17 03/23/18 History Capsule] Oxycodone HCl [Oxycodone (IR) 30mg 30 mg PO Q6HP PRN 07/17/17 03/23/18 History Tab] Umeclidinium Brm/Vilanterol Tr 1 each IH BID 07/17/17 03/23/18 History [Anoro Ellipta 62.5-25 Mcg INH] Aspirin [Aspirin 81mg chewable 81 mg PO DAILY 07/18/17 03/23/18 History tab] Albuterol Sulfate [Albuterol 2.5 mg IH QID PRN 10/05/17 03/23/18 History Sulfate 2.5mg/0.5ml Neb] Bisoprolol Fumarate [Bisoprolol 5 mg PO BID 03/23/18 03/23/18 History 5mg Tablet] Clopidogrel Bisulfate [Plavix 75mg 75 mg PO DAILY 03/23/18 03/23/18 History Tab] Gabapentin [Gabapentin 800mg Tab] 800 mg PO QID 03/23/18 03/23/18 History Metformin HCl 1,000 mg PO BID 03/23/18 03/23/18 History Montelukast Sodium [Montelukast 10 mg PO HS 03/23/18 03/23/18 History 10mg Tab] Pravastatin Sodium [Pravachol 20mg 20 mg PO DAILY 03/23/18 03/23/18 History Tablet] <Armani Mathews - 03/26/18 08:27> Prescriptions/Medication Reconciliation: New Furosemide [Lasix 40mg tab] 40 mg PO BID #60 tab Continue Umeclidinium Brm/Vilanterol Tr [Anoro Ellipta 62.5-25 Mcg INH] 1 each IH BID Oxycodone HCl [Oxycodone (IR) 30mg Tab] 30 mg PO Q6HP PRN PRN Reason: BREAKTHROUGH PAIN Omeprazole [Omeprazole 20mg Capsule] 20 mg PO DAILY Methocarbamol [Methocarbamol 500mg Tablet] 500 mg PO QID Albuterol Sulfate [Albuterol Sulfate 2.5mg/0.5ml Neb] 2.5 mg IH QID PRN PRN Reason: Shortness Of Breath Bisoprolol Fumarate [Bisoprolol 5mg Tablet] 5 mg PO BID Metformin HCl 1,000 mg PO BID Gabapentin [Gabapentin 800mg Tab] 800 mg PO QID Cyclobenzaprine HCl [Cyclobenzaprine 10mg Tab] 10 mg PO BIDP PRN PRN Reason: MUSCLE RELAXER Aspirin [Aspirin 81mg chewable tab] 81 mg PO DAILY Clopidogrel Bisulfate [Plavix 75mg Tab] 75 mg PO DAILY Pravastatin Sodium [Pravachol 20mg Tablet] 20 mg PO DAILY Montelukast Sodium [Montelukast 10mg Tab] 10 mg PO HS <Armani Mathews - 03/26/18 08:27>
== END 2018-03-25 12:00 | disposition home or self-care (01) ==
LOC: ER 01:16 → 2ND 01:16
PROVIDERS: ADMIT Family Medicine; ATTEND Family Medicine

== ENCOUNTER 2018-03-26 19:38 | Observation (INO) ==
[2018-03-26 21:06] LABS: Basophils % 0.2 % (0.1-2.0); Hematocrit 38.2 % (42.0-52.0); Hemoglobin 12.2 g/dL (14.1-18.0); Lymphocytes # 0.7 K/mm3 (0.7-4.5); Lymphocytes % 9.1 K/mm3 (10-50); Mean Corpuscular HGB Conc 31.9 g/dL (31.8-35.4); Mean Corpuscular Hemoglobin 27.2 pg (27.0-31.2); Mean Corpuscular Volume 85.3 fl (80-94); Mean Platelet Volume 7.9 fl (7.4-10.4); Monocytes # 0.6 K/mm3 (0.1-1.0); Monocytes % 7.8 % (1.7-9.3); Neutrophils # 6.5 K/mm3 (1.8-7.8); Neutrophils % 82.9 % (37.0-80.0); Platelet Count 248 K/mm3 (142-424); Red Blood Count 4.48 M/mm3 (4.60-6.20); Red Cell Distribution Width 15.9 % (11.5-17.5); White Blood Count 7.9 K/mm3 (4.8-10.8)
[2018-03-26 21:20] LABS: Albumin Level 3.2 gm/dL (3.4-5.0); Albumin/Globulin Ratio 0.7 (1.1-1.8); Anion Gap 10.8 mEq/L (5-15); Bilirubin,Total 0.8 mg/dL (0.2-1.0); Calcium 8.6 mg/dL (8.5-10.1); Globulin 4.4 gm/dl (1.3-3.2); Potassium 3.8 mmoL/L (3.5-5.1); Total Protein,Serum 7.6 gm/dL (6.4-8.2)
[2018-03-26 21:32] LABS: Microscopic, Urine URINE MICROSCOPIC (MICROSCOPIC)
[2018-03-26 21:35] LABS: Appearance,Urine CLEAR (Clear); Bilirubin,Urine Negative (Negative); Blood, Urine TRACE-I (Negative); Color,Urine YELLOW (Yellow); Glucose,Urine (UA) 2+ (Negative); Ketones,Urine Negative (Negative); Leukocyte Esterase,Urine Negative (Negative); Protein,Urine 2+ (Negative); Urobilinogen,Urine 0.2 EU/dl (0.2)
[2018-03-26 21:51] LABS: Bacteria,Urine 1+ /lpf; WBC,Urine Occasional #/hpf (0-3)
--- NOTE | 2018-03-26 23:34 | Emergency Department Note ---
ED Disposition Clinical Impression: Altered mental status, Fever of unknown origin, Weakness, Acute on chronic kidney failure Disposition: Admitted as Observation Condition on Discharge: Serious Referrals: Lenore Holt APRN [Primary Care Provider] - - Critical Care Critical Care Time: Yes Attestation: On 03/26/18, the high probability of a clinically significant, sudden or life threatening deterioration of the following system(s) required my full and direct attention, intervention and personal management. The time I documented below is in addition to time spent performing reported procedures but includes the following listed in this critical care notation. Vital system(s) involved:: Circulatory Failure, Central Nervous System, Metabolic Failure My critical care processes included: Assessment & monitoring of V/S, Initial and Re-exams, Data Review/Interpretation, Coordinating Care, Medication Orders and management, Documentation (Discussed case with admitting physician (Dr. Jones). Patient admitted to his care for farther management and monitoring. Patient remained stable during his ED care. ) Medical Decision Making - Medical Records Medical records reviewed: Yes: I reviewed the patient's medical records. - Kehinde Inquiry Pt receiving controlled substance: No Kehinde was queried for this patient: No Vital Signs: 03/26/18 19:39 03/26/18 21:38 03/26/18 23:18 Temperature 104.0 F H 100.5 F H 98.8 F Temperature Source Oral Oral Oral Pulse Rate [Right Brachial] 96 H 74 79 Respiratory Rate 22 18 15 Blood Pressure [Right Arm] 161/83 140/74 130/72 Blood Pressure Mean [Right Arm] 109 96 91 02 Sat by Pulse Oximetry 86 L 97 97 Oxygen Delivery Method Room Air Nasal Cannula Nasal Cannula Oxygen Flow Rate (LPM) 2 2 - Lab Data Lab Results 03/26/18 20:50: WBC 7.9, RBC 4.48 L, Hgb 12.2 L, Hct 38.2 L, MCV 85.3, MCH 27.2, MCHC 31.9, RDW 15.9, Plt Count 248, MPV 7.9, Neut % (Auto) 82.9 H, Lymph % (Auto) 9.1 L, [place] % (Auto) 7.8, Eos % (Auto) 0.0 L, Baso % (Auto) 0.2, Neut # (Auto) 6.5, Lymph # (Auto) 0.7, [place] # (Auto) 0.6, Eos # (Auto) 0.0, Baso # (Auto) 0.0 03/26/18 20:50: Sodium 134 L, Potassium 3.8, Chloride 95 L, Carbon Dioxide 32, Anion Gap 10.8, BUN 23 H D, Creatinine 1.95 H D, Estimated Creat Clear 31, Estimated GFR 34 L, Est GFR ( Amer) 41 L D, Glucose 349 H, Calcium 8.6, Total Bilirubin 0.8, AST 6 L, ALT 15, Alkaline Phosphatase 74, Troponin I 0.09 H , Total Protein 7.6, Albumin 3.2 L, Globulin 4.4 H, Albumin/Globulin Ratio 0.7 L 03/26/18 20:50: Lactate 1.3 03/26/18 20:50: B-Natriuretic Peptide 268 H 03/26/18 21:25: Urine Color Yellow, Urine Appearance Clear, Urine pH 6.0, Ur Specific [place] 1.020, Urine Protein 2+, Urine Glucose (UA) 2+, Urine Ketones Negative, Urine Blood Trace-i, Urine Nitrate Negative, Urine Bilirubin Negative, Urine Urobilinogen 0.2, Ur Leukocyte Esterase Negative, Urine RBC 3-5, Urine WBC Occasional, Ur Squamous Epith Cells None, Urine Bacteria 1+ Result diagrams: 03/26/18 20:50 03/26/18 20:50 Orders (Tests/Meds): ED MEDICATIONS Generic Name Dose Route Start Last Admin Trade Name Freq PRN Reason Stop Dose Admin Acetaminophen 650 mg 03/26/18 20:26 Acetaminophen 325mg Tab PO 04/25/18 20:25 Q4HP PRN Fever > 100.4 Sodium Chloride 1,000 mls @ 50 mls/hr 03/26/18 23:30 Sod Chlor 0.9% 1000ml Bag IV 04/25/18 23:29 .Q20H SHAE Piperacillin Sod/Tazobactam 100 mls @ 200 mls/hr 03/26/18 23:30 03/26/18 23:23 Sod 3.375 gm/ Sodium Chloride IV 04/09/18 23:29 200 mls/hr Q8H SHAE Administration Protocol Discontinued Medications Generic Name Dose Route Start Last Admin Trade Name Freq PRN Reason Stop Dose Admin Acetaminophen 1,000 mg 03/26/18 19:44 03/26/18 20:42 Tylenol 500mg Tablet PO 03/26/18 19:45 1,000 mg ONCE ONE Administration Ibuprofen 600 mg 03/26/18 19:44 03/26/18 20:42 Motrin 600mg Tablet PO 03/26/18 19:45 600 mg ONCE ONE Administration Insulin Human Lispro 0 unit 03/26/18 23:24 Humalog 100 Units/Ml 3ml Vial (Ssi) SQ 03/26/18 23:25 ONCE ONE Protocol ORDERS Category Date Time Status CT head/brain wo con Stat Cat Scan 03/26/18 21:40 Taken XR chest portable Stat Exams 03/26/18 19:44 Taken Flu A&B Antigens, Rapid [Rapid Influenza A&B Antigens] Lab 03/26/18 23:18 Ordered Stat Urinalysis and Microscopic Stat Lab 03/26/18 23:28 Ordered Blood Culture Stat Micro 03/26/18 23:28 Ordered Blood Culture Stat Micro 03/26/18 23:28 Ordered Blood Culture Stat Micro 03/26/18 23:28 Ordered Urine Culture Stat Micro 03/26/18 23:28 Ordered ECG Request by /Rakel Stat Y 03/26/18 19:44 Ordered - Radiology Data #1 Image(s): Chest Image Reviewed: Yes I reviewed the patient's radiology image Preliminary Findings: Normal/NAD Altered Mental Status HPI - General Chief Complaint: Weakness Stated Complaint: weakness Time Seen by Provider: 03/26/18 20:01 Mode of Arrival: EMS Source of Information: Spouse, Relative Limitations: Altered Mental Status Description of Symptoms (Recalled from ER Triage Doc. by RN): brought in by ems for weakness. Patient and family reports patient was discharged from [facility] yesterday following an admission for CHF and received a heart cath yesterday. Reports high fever at home today, accompanied with weakness and shortness of air. Room air sat 86%. Stroke assessment negative. - History of Present Illness HPI narrative: Patient with hx of HTN, DM, CHF, s/p heart cath yestrday, brought to the ED by his family members for weakness, fever and intermittent alteration in his mental status. Patient answering questions appropriately at the time of this interview but was confused at home per family members. Patient reports weakness. Denies any other acute complains at this time. Denies cough, chest pain, sob, headache, dizziness. Denies any other acute complains at this time MD complaint: altered mental status, confusion, weakness Onset (ago): day(s) (1) Timing confirmed by: spouse, family member Consistency of symptoms: waxing and waning Context: change in medication Associated symptoms: fever (Temp of 104.0 at presentation. ) - Related Data Home Medications Medication Instructions Recorded Confirmed Cyclobenzaprine HCl 10 mg PO BIDP PRN 07/17/17 03/26/18 [Cyclobenzaprine 10mg Tab] Methocarbamol [Methocarbamol 500mg 500 mg PO QID 07/17/17 03/26/18 Tablet] Omeprazole [Omeprazole 20mg 20 mg PO DAILY 07/17/17 03/26/18 Capsule] Oxycodone HCl [Oxycodone (IR) 30mg 30 mg PO Q6HP PRN 07/17/17 03/26/18 Tab] Umeclidinium Brm/Vilanterol Tr 1 each IH BID 07/17/17 03/26/18 [Anoro Ellipta 62.5-25 Mcg INH] Aspirin [Aspirin 81mg chewable 81 mg PO DAILY 07/18/17 03/26/18 tab] Albuterol Sulfate [Albuterol 2.5 mg IH QID PRN 10/05/17 03/26/18 Sulfate 2.5mg/0.5ml Neb] Bisoprolol Fumarate [Bisoprolol 5 mg PO BID 03/23/18 03/26/18 5mg Tablet] Clopidogrel Bisulfate [Plavix 75mg 75 mg PO DAILY 03/23/18 03/26/18 Tab] Gabapentin [Gabapentin 800mg Tab] 800 mg PO QID 03/23/18 03/26/18 Metformin HCl 1,000 mg PO BID 03/23/18 03/26/18 Montelukast Sodium [Montelukast 10 mg PO HS 03/23/18 03/26/18 10mg Tab] Pravastatin Sodium [Pravachol 20mg 20 mg PO DAILY 03/23/18 03/26/18 Tablet] Furosemide [Lasix 40mg tab] 40 mg PO BID 03/26/18 03/26/18 Allergies Allergy/AdvReac Type Severity Reaction Status Date / Time No Known Allergies Allergy Verified 02/03/18 11:06 [facility] History Medical History: Reports:: Cardiomyopathy, Congestive Heart Failure, Congenital Heart Disease, Coronary Artery Disease, Diabetes Mellitus Type 2, Hyperlipidemia, Hypertension, Renal Insufficiency Denies:: Cancer, Diabetes Mellitus Type 1, Internal Pacemaker, MRSA, Seizures Other Medical History: Reports: Arthritis. Denies: Blood Transfusion Reaction Comment: Dyspnea, Hypothyroid, Obesity Other Surgeries: Yes: Appendectomy, Coronary Stent, Other. No: Pacemaker Amputation: No Fractures: No - Social History Smoking Status: Former smoker Tobacco Type: cigarettes Alcohol Intake: never Alcohol Intake Frequency:: other Substance Use Type: denies use Occupational Status: retired, other Household Members: spouse - Psychiatric History Expresses thoughts of harming self/others: None Suicide Plan Description: No Plan Family Hx:: Coronary Artery Disease, Heart Attack, Hyperlipidemia, Hypertension, Stroke ROS Obtained: Yes All systems reviewed & no additional complaints Physical Exam - General General appearance: alert, in no apparent distress - Head Head exam: atraumatic, normocephalic, normal inspection - Eye Eye exam: Present: normal appearance, PERRL, EOMI - ENT ENT exam: Present: normal exam, normal oropharynx, mucous membranes moist, TM's normal bilaterally, normal external ear exam - Neck Neck exam: Present: normal inspection, full ROM, trachea midline. Absent: meningismus, lymphadenopathy - Chest Chest inspection: Present: normal inspection, symmetric chest wall rise. Absent: tenderness - Respiratory Respiratory exam: Present: normal lung sounds bilaterally. Absent: respiratory distress - Cardiovascular Cardiovascular exam: Present: regular rate, normal rhythm. Absent: JVD - Abdominal Exam Abdominal exam: Present: soft, normal bowel sounds. Absent: distention, tenderness, guarding - Extremities Exam Extremities exam: Present: normal inspection, full ROM, normal capillary refill. Absent: calf tenderness - Back Exam Back exam: Present: normal inspection. Absent: tenderness - Neurological Exam Neurological exam: Present: alert, oriented X3 - Psychiatric Psychiatric exam: Present: normal affect, normal mood - Skin Skin exam: Present: warm, dry, intact, normal color, other (Mild erythema over left anticubital area.) - Lymphatic Lymphatic Findings: no adenopathy
--- NOTE | 2018-03-27 07:53 | Pharmacy Consult Notes ---
[facility] Pharmacy VTE Monitoring - Patient Demographics Admission date: 03/27/18 Report Date: 03/27/18 Time: 07:53 Allergies/Adverse Reactions: Patient Allergies No Known Allergies Allergy (Verified 02/03/18 11:06) Height: 1.7 m Weight: 124.738 kg Patient Problems: Current Active Problems Altered mental status (Acute) Fever of unknown origin (Acute) Weakness (Acute) Acute on chronic kidney failure (Acute) - VTE Risk Labs: VTE Related Lab Results Hgb 12.2 g/dL (14.1-18.0) L 03/26/18 20:50 Hct 38.2 % (42.0-52.0) L 03/26/18 20:50 Plt Count 248 K/mm3 (142-424) 03/26/18 20:50 BUN 23 mg/dL (7-18) H D 03/26/18 20:50 Creatinine 1.95 mg/dL (0.70-1.30) H D 03/26/18 20:50 Estimated Creat Clear 31 mL/min (0-300) 03/26/18 20:50 Was VTE Risk Assessment Performed: Yes VTE Score: 8 VTE Risk Level: Moderate Risk Clinical Trial Participant: No - Prophylaxis VTE Prophylaxis Ordered?: Yes Types of VTE Prophylaxis: TEDS Knee High Location of Applied Device: Not Applicable
--- NOTE | 2018-03-27 08:33 | History & Physical Report ---
*Admission Date: 03/27/18 <03/27/18 08:49> *Chief complaint: weakness and confusion <03/27/18 08:49> *History of present illness: Mr. Ellsworth is a 77yo WM with a hx of HTN, DM, and CHF, who was brought to the ED from home for evaluation of weakness and confusion. Patient and family report that he was discharged two days ago following admission for CHF during which he also underwent heart cath. Yesterday he developed a fever accompanied by weakness and intermittent confusion, as well as SOB. Upon arrival to the ED, his SpO2 was 86% on room air. His stroke assessment was negative. He was answering questions appropriately. His CXR showed mild CHF and bibasilar atelectasis. His head CT showed chronic small bilateral subdural hematomas and was otherwise negative. He was admitted for further workup At this time, the patient is resting quietly in bed. He answers question appropriately and is oriented to day of the week and current president. He denies any pain other that some right shoulder discomfort which has been ongoing. He denies any SOB. <03/27/18 08:49> [facility] History Medical History: Reports:: Cardiomyopathy, Congestive Heart Failure, Congenital Heart Disease, Coronary Artery Disease, Diabetes Mellitus Type 2, Hyperlipidemia, Hypertension, Renal Insufficiency Denies:: Cancer, Diabetes Mellitus Type 1, Internal Pacemaker, MRSA, Seizures <03/27/18 08:49> Other Medical History: Reports: Arthritis. Denies: Blood Transfusion Reaction <03/27/18 08:49> Other Surgeries: Yes: Appendectomy, Coronary Stent, Other. No: Pacemaker <03/27/18 08:49> Amputation: No <03/27/18 08:49> Fractures: No <03/27/18 08:49> - *Social History Educational Level: Attended High School <03/27/18 08:49> Smoking Status: Former smoker <03/27/18 08:49> Tobacco Type: cigarettes <03/27/18 08:49> Alcohol Intake: never </28/18 08:49> Alcohol Intake Frequency:: other <Asa,03/27/18 08:49> Substance Use Type: denies use <AsaKirill crowley03/27/18 08:49> Occupational Status: retired, other <Kirill Bray03/27/18 08:49> Household Members: spouse <Asa,03/27/18 08:49> - Psychiatric History Expresses thoughts of harming self/others: None <Kirill Bray03/27/18 08:49> Suicide Plan Description: No Plan <Kirill Bray03/27/18 08:49> *Family Hx:: Coronary Artery Disease, Heart Attack, Hyperlipidemia, Hypertension, Stroke <Kirill Bray03/27/18 08:49> Review of Systems - *Cardiovascular Reports shortness of breath, Denies chest pain <AsaKirill crowley03/27/18 08:49> - *Respiratory Denies cough <Asa,03/27/18 08:49> - *Gastrointestinal Denies abdominal pain, Denies nausea <AsaKirill crowley03/27/18 08:49> - *Musculoskeletal Reports muscle weakness <Asa03/27/18 08:49> - *Neurologic Reports confusion, Reports weakness, Denies dizziness <03/27/18 08:49> Meds Home Medications Medication Instructions Recorded Confirmed Type Cyclobenzaprine HCl 10 mg PO BIDP PRN 07/17/17 03/26/18 History [Cyclobenzaprine 10mg Tab] Methocarbamol [Methocarbamol 500mg 500 mg PO QID 07/17/17 03/26/18 History Tablet] Omeprazole [Omeprazole 20mg 20 mg PO DAILY 07/17/17 03/26/18 History Capsule] Oxycodone HCl [Oxycodone (IR) 30mg 30 mg PO Q6HP PRN 07/17/17 03/26/18 History Tab] Umeclidinium Brm/Vilanterol Tr 1 each IH BID 07/17/17 03/26/18 History [Anoro Ellipta 62.5-25 Mcg INH] Aspirin [Aspirin 81mg chewable 81 mg PO DAILY 07/18/17 03/26/18 History tab] Albuterol Sulfate [Albuterol 2.5 mg IH QID PRN 10/05/17 03/26/18 History Sulfate 2.5mg/0.5ml Neb] Bisoprolol Fumarate [Bisoprolol 5 mg PO BID 03/23/18 03/26/18 History 5mg Tablet] Clopidogrel Bisulfate [Plavix 75mg 75 mg PO DAILY 03/23/18 03/26/18 History Tab] Gabapentin [Gabapentin 800mg Tab] 800 mg PO QID 03/23/18 03/26/18 History Metformin HCl 1,000 mg PO BID 03/23/18 03/26/18 History Montelukast Sodium [Montelukast 10 mg PO HS 03/23/18 03/26/18 History 10mg Tab] Pravastatin Sodium [Pravachol 20mg 20 mg PO DAILY 03/23/18 03/26/18 History Tablet] Furosemide [Lasix 40mg tab] 40 mg PO BID 03/26/18 03/26/18 History <Armani Mathews - 03/27/18 09:10> Allergies Allergy/AdvReac Type Severity Reaction Status Date / Time No Known Allergies Allergy Verified 02/03/18 11:06 <Armani Mathews - 03/27/18 09:10> Exam Vital signs and Labs for Last 24 Hours: Temp Pulse Resp BP Pulse Ox 97.2 F L 42 L 20 126/76 100 03/27/18 08:00 03/27/18 08:00 03/27/18 08:00 03/27/18 08:00 03/27/18 08:00 Laboratory Results - last 24 hr 03/26/18 20:50: WBC 7.9, RBC 4.48 L, Hgb 12.2 L, Hct 38.2 L, MCV 85.3, MCH 27.2, MCHC 31.9, RDW 15.9, Plt Count 248, MPV 7.9, Neut % (Auto) 82.9 H, Lymph % (Auto) 9.1 L, [place] % (Auto) 7.8, Eos % (Auto) 0.0 L, Baso % (Auto) 0.2, Neut # (Auto) 6.5, Lymph # (Auto) 0.7, [place] # (Auto) 0.6, Eos # (Auto) 0.0, Baso # (Auto) 0.0 03/26/18 20:50: Sodium 134 L, Potassium 3.8, Chloride 95 L, Carbon Dioxide 32, Anion Gap 10.8, BUN 23 H D, Creatinine 1.95 H D, Estimated Creat Clear 31, Estimated GFR 34 L, Est GFR ( Amer) 41 L D, Glucose 349 H, Calcium 8.6, Total Bilirubin 0.8, AST 6 L, ALT 15, Alkaline Phosphatase 74, Troponin I 0.09 H , Total Protein 7.6, Albumin 3.2 L, Globulin 4.4 H, Albumin/Globulin Ratio 0.7 L 03/26/18 20:50: Lactate 1.3 03/26/18 20:50: B-Natriuretic Peptide 268 H 03/26/18 21:25: Urine Color Yellow, Urine Appearance Clear, Urine pH 6.0, Ur Specific [place] 1.020, Urine Protein 2+, Urine Glucose (UA) 2+, Urine Ketones Negative, Urine Blood Trace-i, Urine Nitrate Negative, Urine Bilirubin Negative, Urine Urobilinogen 0.2, Ur Leukocyte Esterase Negative, Urine RBC 3-5, Urine WBC Occasional, Ur Squamous Epith Cells None, Urine Bacteria 1+ 03/26/18 23:22: Influenza Type A Ag Negative, Influenza Type B Ag Negative 03/27/18 01:39: POC Glucose 360 H* 03/27/18 06:05: POC Glucose 278 H <Armani Mathews - 03/27/18 09:10> Temp Pulse Resp BP Pulse Ox 97.2 F L 42 L 20 126/76 100 03/27/18 08:00 03/27/18 08:00 03/27/18 08:00 03/27/18 08:00 03/27/18 08:00 Laboratory Results - last 24 hr 03/26/18 20:50: WBC 7.9, RBC 4.48 L, Hgb 12.2 L, Hct 38.2 L, MCV 85.3, MCH 27.2, MCHC 31.9, RDW 15.9, Plt Count 248, MPV 7.9, Neut % (Auto) 82.9 H, Lymph % (Auto) 9.1 L, [place] % (Auto) 7.8, Eos % (Auto) 0.0 L, Baso % (Auto) 0.2, Neut # (Auto) 6.5, Lymph # (Auto) 0.7, [place] # (Auto) 0.6, Eos # (Auto) 0.0, Baso # (Auto) 0.0 03/26/18 20:50: Sodium 134 L, Potassium 3.8, Chloride 95 L, Carbon Dioxide 32, Anion Gap 10.8, BUN 23 H D, Creatinine 1.95 H D, Estimated Creat Clear 31, Estimated GFR 34 L, Est GFR ( Amer) 41 L D, Glucose 349 H, Calcium 8.6, Total Bilirubin 0.8, AST 6 L, ALT 15, Alkaline Phosphatase 74, Troponin I 0.09 H , Total Protein 7.6, Albumin 3.2 L, Globulin 4.4 H, Albumin/Globulin Ratio 0.7 L 03/26/18 20:50: Lactate 1.3 03/26/18 20:50: B-Natriuretic Peptide 268 H 03/26/18 21:25: Urine Color Yellow, Urine Appearance Clear, Urine pH 6.0, Ur Specific [place] 1.020, Urine Protein 2+, Urine Glucose (UA) 2+, Urine Ketones Negative, Urine Blood Trace-i, Urine Nitrate Negative, Urine Bilirubin Negative, Urine Urobilinogen 0.2, Ur Leukocyte Esterase Negative, Urine RBC 3-5, Urine WBC Occasional, Ur Squamous Epith Cells None, Urine Bacteria 1+ 03/26/18 23:22: Influenza Type A Ag Negative, Influenza Type B Ag Negative 03/27/18 01:39: POC Glucose 360 H* 03/27/18 06:05: POC Glucose 278 H <Vianney Bray - 03/27/18 08:49> I & O for Last 24 hours: Intake & Output 03/24/18 03/25/18 03/26/18 03/27/18 11:59 11:59 11:59 11:59 Intake Total 230 / 230 Output Total 1425 / 1425 Balance -1195 / -1195 Weight 275 lb <Armani Mathews - 03/27/18 09:10> Intake & Output 03/24/18 03/25/18 03/26/18 03/27/18 11:59 11:59 11:59 11:59 Intake Total 230 / 230 Output Total 1425 / 1425 Balance -1195 / -1195 Weight 275 lb <AsaKirill crowleya 03/27/18 08:49> - Constitutional no acute distress, obese <[facility] 03/27/18 08:49> - *Routine HEENT Exam Head: Present: normocephalic <AsaKirilla 03/27/18 08:49> Eye: Present: PERRL, normal accommodation <AsaKirilla 03/27/18 08:49> ENT: Present: mucous membranes moist, nares patent <AsaKirilla 03/27/18 08:49> - *Routine Neck Exam Present: supple, full ROM. Absent: lymphadenopathy <AsaKirill03/27/18 08:49> - *Routine Respiratory Exam Comments: good air movement with rhonchi throughout and bibasilar rales <AsaVianney - 03/27/18 08:49> - *Routine Cardiovascular Exam Present: irregularly irregular <AsaVianney 03/27/18 08:49> - *Routine Abdominal Exam Present: soft, normoactive bowel sounds. Absent: tenderness, distended, guarding, rigid <AsaKirilla 03/27/18 08:49> Comments: obese <AsaVianney 03/27/18 08:49> - *Routine Extremities Exam Absent: calf tenderness <AsaVianney 03/27/18 08:49> Comments: 1+ BLE edema with diffuse thick plagues of skin <AsaVianney 03/27/18 08:49> - *Routine Neurological Exam Present: alert, oriented X3, moving all extremities, normal speech <AsaKirill crowleya 03/27/18 08:49> Assessment and Plan (1) Altered mental status Current visit: Yes Status: Acute Category: Medical Code(s): R41.82 - Altered mental status, unspecified (2) Fever of unknown origin Current visit: Yes Status: Acute Category: Medical Code(s): R50.9 - Fever, unspecified (3) Weakness Current visit: Yes Status: Acute Category: Medical Code(s): R53.1 - Weakness (4) NYHA class 2 and ACC/AHA stage C acute on chronic systolic congestive heart failure Current visit: No Status: Chronic Category: Medical Code(s): I50.23 - Acute on chronic systolic (congestive) heart failure (5) Morbid obesity Current visit: Yes Status: Acute Category: Medical Code(s): E66.01 - Morbid (severe) obesity due to excess calories (6) Type 2 diabetes mellitus Current visit: No Status: Acute Category: Medical Code(s): E11.9 - Type 2 diabetes mellitus without complications (7) Hypertension Current visit: No Status: Chronic Qualifiers: Hypertension type: essential hypertension Qualified Code(s): I10 - Essential (primary) hypertension Category: Medical Code(s): I10 - Essential (primary) hypertension <Armani Mathews - 03/27/18 09:10> - Assessment and plan all Dx Assessment and Plan for all problems:: Saw patient, he feels good now, mental status is normal. He was started on Zosyn for a presumed UTI, will await urine and blood cultures, due to recent left heart cath. Recheck CXR today. <Armani Mathews - 03/27/18 09:10> Pt appears comfortable at this time. Will continue current care. Further per Dr. Mathews. <Vianney Bray - 03/27/18 08:49>
[2018-03-28 05:57] LABS: Basophils % 0.2 % (0.1-2.0); Eosinophils # 0.1 K/mm3 (0.0-0.4); Eosinophils % 1.2 % (0.1-12.0); Hematocrit 35.5 % (42.0-52.0); Hemoglobin 11.3 g/dL (14.1-18.0); Lymphocytes # 0.8 K/mm3 (0.7-4.5); Lymphocytes % 10.6 K/mm3 (10-50); Mean Corpuscular HGB Conc 31.8 g/dL (31.8-35.4); Mean Corpuscular Volume 85.1 fl (80-94); Mean Platelet Volume 7.9 fl (7.4-10.4); Monocytes # 0.6 K/mm3 (0.1-1.0); Monocytes % 7.9 % (1.7-9.3); Neutrophils # 6.3 K/mm3 (1.8-7.8); Neutrophils % 80.1 % (37.0-80.0); Platelet Count 207 K/mm3 (142-424); Red Blood Count 4.17 M/mm3 (4.60-6.20); Red Cell Distribution Width 15.5 % (11.5-17.5); White Blood Count 7.9 K/mm3 (4.8-10.8)
--- NOTE | 2018-03-28 08:24 | Progress Note ---
Internal Medicine - PN: Subj *Date: 03/28/18 *Time: 08:21 Interval history: Rested fairly well. Slept in recliner which he does at home. No c/o SOA or chest pain. Nurses documented temp of 103 last evening although not recorded on flow sheet. Exam Vital signs and Labs for Last 24 Hours: Temp Pulse Resp BP Pulse Ox 97.5 F L 44 L 18 157/83 H 97 03/28/18 07:46 03/28/18 07:46 03/28/18 07:46 03/28/18 07:46 03/28/18 07:46 Laboratory Results - last 24 hr 03/27/18 17:30: POC Glucose 235 H 03/27/18 21:00: POC Glucose 281 H 03/28/18 05:40: WBC 7.9, RBC 4.17 L, Hgb 11.3 L, Hct 35.5 L, MCV 85.1, MCH 27.0, MCHC 31.8, RDW 15.5, Plt Count 207, MPV 7.9, Neut % (Auto) 80.1 H, Lymph % (Auto) 10.6, [place] % (Auto) 7.9, Eos % (Auto) 1.2, Baso % (Auto) 0.2, Neut # (Auto) 6.3, Lymph # (Auto) 0.8, [place] # (Auto) 0.6, Eos # (Auto) 0.1, Baso # (Auto) 0.0 03/28/18 05:40: Sodium 133 L, Potassium 4.0, Chloride 96 L, Carbon Dioxide 30, Anion Gap 11.0, BUN 23 H, Creatinine 1.57 H, Estimated Creat Clear 37, Estimated GFR 43 L, Est GFR ( Amer) 52 L D, Glucose 239 H, Calcium 8.0 L 03/28/18 06:28: POC Glucose 232 H I & O for Last 24 hours: Intake & Output 03/25/18 03/26/18 03/27/18 03/28/18 11:59 11:59 11:59 11:59 Intake Total 230 / 230 1229 / 1229 Output Total 1425 / 1425 1825 / 1825 Balance -1195 / -1195 -596 / -596 Weight 275 lb 275 lb 0.003 oz Microbiology Reports for the Last 24 Hours: Microbiology 03/26/18 20:05 Blood Blood Culture - Preliminary Gram Positive Cocci 03/26/18 20:05 Blood Blood Culture - Preliminary Gram Positive Cocci 03/26/18 21:25 Urine,Clean Catch Urine Culture - Preliminary NO GROWTH AFTER 24 HOURS Narrative: Blood cultures showing staph aureus with mecA gene on PCR - Constitutional Comments: sitting up in recliner, alert and oriented - *Routine Respiratory Exam Present: CTA bilaterally - *Routine Cardiovascular Exam Present: RRR - *Routine Abdominal Exam Comments: obese, soft, NT Assessment and Plan (1) Staphylococcus aureus bacteremia Start date: 03/28/18 (mecA gene on PCR) Current visit: Yes Status: Acute Category: Medical Code(s): R78.81 - Bacteremia (2) Altered mental status Current visit: Yes Status: Acute Category: Medical Code(s): R41.82 - Altered mental status, unspecified (3) Weakness Current visit: Yes Status: Acute Category: Medical Code(s): R53.1 - Weak ness (4) NYHA class 2 and ACC/AHA stage C acute on chronic systolic congestive heart failure Current visit: No Status: Chronic Category: Medical Code(s): I50.23 - Acute on chronic systolic (congestive) heart failure (5) Morbid obesity Current visit: Yes Status: Acute Category: Medical Code(s): E66.01 - Morbid (severe) obesity due to excess calories (6) Type 2 diabetes mellitus Current visit: No Status: Acute Category: Medical Code(s): E11.9 - Type 2 diabetes mellitus without complications (7) Hypertension Current visit: No Status: Chronic Qualifiers: Hypertension type: essential hypertension Qualified Code(s): I10 - Essential (primary) hypertension Category: Medical Code(s): I10 - Essential (primary) hypertension (8) History of ASCVD Current visit: Yes Status: Acute Category: Medical Code(s): Z86.79 - Personal history of other diseases of the circulatory system - Assessment and plan all Dx Assessment and Plan for all problems:: No new complaints. Altered mental status has cleared. Will add Vancomycin for likely MRSA bacteremia pending final blood culture.
--- NOTE | 2018-03-28 10:39 | Pharmacy Consult Notes ---
- Pharmacy Consult Date: 03/28/18 Time: 10:37 Referring provider: DR. HARE Reason for Consult:: VANCOMYCIN DOSING Allergies and ADEs:: Allergies Allergy/AdvReac Type Severity Reaction Status Date / Time No Known Allergies Allergy Verified 02/03/18 11:06 Home Medications:: Home Medications Medication Instructions Recorded Confirmed Type Cyclobenzaprine HCl 10 mg PO BIDP PRN 07/17/17 03/26/18 History [Cyclobenzaprine 10mg Tab] Methocarbamol [Methocarbamol 500mg 500 mg PO QID 07/17/17 03/26/18 History Tablet] Omeprazole [Omeprazole 20mg 20 mg PO DAILY 07/17/17 03/26/18 History Capsule] Oxycodone HCl [Oxycodone (IR) 30mg 30 mg PO Q6HP PRN 07/17/17 03/26/18 History Tab] Umeclidinium Brm/Vilanterol Tr 1 each IH BID 07/17/17 03/26/18 History [Anoro Ellipta 62.5-25 Mcg INH] Aspirin [Aspirin 81mg chewable 81 mg PO DAILY 07/18/17 03/26/18 History tab] Albuterol Sulfate [Albuterol 2.5 mg IH QID PRN 10/05/17 03/26/18 History Sulfate 2.5mg/0.5ml Neb] Bisoprolol Fumarate [Bisoprolol 5 mg PO BID 03/23/18 03/26/18 History 5mg Tablet] Clopidogrel Bisulfate [Plavix 75mg 75 mg PO DAILY 03/23/18 03/26/18 History Tab] Gabapentin [Gabapentin 800mg Tab] 800 mg PO QID 03/23/18 03/26/18 History Montelukast Sodium [Montelukast 10 mg PO HS 03/23/18 03/26/18 History 10mg Tab] Pravastatin Sodium [Pravachol 20mg 20 mg PO DAILY 03/23/18 03/26/18 History Tablet] Furosemide [Lasix 40mg tab] 40 mg PO BID 03/26/18 03/26/18 History Lisinopril [Lisinopril 10mg Tab] 10 mg PO BID 03/27/18 03/27/18 History Metformin HCl 1,000 mg PO BID 03/27/18 03/27/18 History Height: 1.7 m Weight: 124.738 kg Laboratory Results:: Laboratory Results - last 24 hr 03/27/18 17:30: POC Glucose 235 H 03/27/18 21:00: POC Glucose 281 H 03/28/18 05:40: WBC 7.9, RBC 4.17 L, Hgb 11.3 L, Hct 35.5 L, MCV 85.1, MCH 27.0, MCHC 31.8, RDW 15.5, Plt Count 207, MPV 7.9, Neut % (Auto) 80.1 H, Lymph % (Auto) 10.6, [place] % (Auto) 7.9, Eos % (Auto) 1.2, Baso % (Auto) 0.2, Neut # (Auto) 6.3, Lymph # (Auto) 0.8, [place] # (Auto) 0.6, Eos # (Auto) 0.1, Baso # (Auto) 0.0 03/28/18 05:40: Sodium 133 L, Potassium 4.0, Chloride 96 L, Carbon Dioxide 30, Anion Gap 11.0, BUN 23 H, Creatinine 1.57 H, Estimated Creat Clear 37, Estimated GFR 43 L, Est GFR ( Amer) 52 L D, Glucose 239 H, Calcium 8.0 L 03/28/18 06:28: POC Glucose 232 H Medical History: Reports:: Cardiomyopathy, Congestive Heart Failure, Congenital Heart Disease, Coronary Artery Disease, Diabetes Mellitus Type 2, Hyperlipidemia, Hypertension, Renal Insufficiency Denies:: Cancer, Diabetes Mellitus Type 1, Internal Pacemaker, MRSA, Seizures Assessment and Plan (1) Staphylococcus aureus bacteremia Start date: 03/28/18 (mecA gene on PCR) Current visit: Yes Status: Acute Category: Medical Code(s): R78.81 - Bacteremia (2) Altered mental status Current visit: Yes Status: Acute Category: Medical Code(s): R41.82 - Altered mental status, unspecified (3) Weakness Current visit: Yes Status: Acute Category: Medical Code(s): R53.1 - Weakness (4) NYHA class 2 and ACC/AHA stage C acute on chronic systolic congestive heart failure Current visit: No Status: Chronic Category: Medical Code(s): I50.23 - Acute on chronic systolic (congestive) heart failure (5) Morbid obesity Current visit: Yes Status: Acute Category: Medical Code(s): E66.01 - Morbid (severe) obesity due to excess calories (6) Type 2 diabetes mellitus Current visit: No Status: Acute Category: Medical Code(s): E11.9 - Type 2 diabetes mellitus without complications (7) Hypertension Current visit: No Status: Chronic Qualifiers: Hypertension type: essential hypertension Qualified Code(s): I10 - E ssential (primary) hypertension Category: Medical Code(s): I10 - Essential (primary) hypertension (8) History of ASCVD Current visit: Yes Status: Acute Category: Medical Code(s): Z86.79 - Personal history of other diseases of the circulatory system - Assessment and plan all Dx Assessment and Plan for all problems:: BASED ON PATIENT FACTORS, RECOMMEND VANCOMYCIN 2500 MG IV ONCE, FOLLOWED BY VANCOMYCIN 2 GM IV Q24H. WILL OBTAIN VANCOMYCIN TROUGH LEVEL PRIOR TO DOSE ON 03/30/18. PHARMACY WILL FOLLOW DAILY AND ADJUST APPROPRIATE.
--- NOTE | 2018-03-29 08:46 | Progress Note ---
Internal Medicine - PN: Subj *Date: 03/29/18 *Time: 08:41 Interval history: Conitnues to c/o right shoulder pain. No hx of injury. Denies CP, SOA. Final blood culture confirmed MRSA and was started on Vancomycin yesterday. Exam Vital signs and Labs for Last 24 Hours: Temp Pulse Resp BP Pulse Ox 97.8 F 81 20 141/74 H 98 03/29/18 08:00 03/29/18 08:00 03/29/18 08:00 03/29/18 08:00 03/29/18 08:00 Laboratory Results - last 24 hr 03/28/18 12:02: POC Glucose 248 H 03/28/18 17:09: POC Glucose 228 H 03/28/18 20:41: POC Glucose 259 H 03/29/18 06:26: POC Glucose 200 H I & O for Last 24 hours: Intake & Output 03/26/18 03/27/18 03/28/18 03/29/18 11:59 11:59 11:59 11:59 Intake Total 230 / 230 1229 / 1229 2630 / 2630 Output Total 1425 / 1425 1825 / 1825 2750 / 2750 Balance -1195 / -1195 -596 / -596 -120 / -120 Weight 275 lb 275 lb 0.003 oz 278 lb 4 oz Microbiology Reports for the Last 24 Hours: Microbiology 03/26/18 20:05 Blood Blood Culture - Final Staphylococcus aureus 03/26/18 20:05 Blood Blood Culture - Final Staphylococcus aureus 03/26/18 21:25 Urine,Clean Catch Urine Culture - Final NO GROWTH AFTER 48 HOURS - Constitutional no acute distress Comments: sittin up in chair - *Routine Respiratory Exam Present: CTA bilaterally Comments: diminished in bases - *Routine Cardiovascular Exam Present: RRR - *Routine Extremities Exam Comments: right shoulder with no swelling, deformity or discoloration. Tender anteriorly. Decreased ROM due to pain. No swelling in his arm Assessment and Plan (1) MRSA bacteremia Current visit: Yes Status: Acute Category: Medical Code(s): R78.81 - Bacteremia (2) Altered mental status Current visit: Yes Status: Acute Category: Medical Code(s): R41.82 - Altered mental status, unspecified (3) Weakness Current visit: Yes Status: Acute Category: Medical Code(s): R53.1 - Weakness (4) NYHA class 2 and ACC/AHA stage C acute on chronic systolic congestive heart failure Current visit: No Status: Chronic Category: Medical Code(s): I50.23 - Acute on chronic systolic (congestive) heart failure (5) Morbid obesity Current visit: Yes Status: Acute Category: Medical Code(s): E66.01 - Morbid (severe) obesity due to excess calories (6) Type 2 diabetes mellitus Current visit: No Status: Acute Category: Medical Code(s): E11.9 - Type 2 diabetes mellitus without complications (7) Hypertension Current visit: No Status: Chronic Qualifiers: Hypertension type: essential hypertension Qualified Code(s): I10 - Essential (primary) hypertension Category: Medical Code(s): I10 - Essential (primary) hypertension (8) History of ASCVD Current visit: Yes Status: Acute Category: Medical Code(s): Z86.79 - Personal history of other diseases of the circulatory system - Assessment and plan all Dx Assessment and Plan for all problems:: He tells me he has to be in court at 9AM tomorrow in [facility] and has to leave this afternoon. I explained the serious nature of his MRSA infection and that he will need to complete a 10 day course of IV antibiotics. Nontheless, he insists he must leave for this appt tomorrow and agrees to return to [facility] outpt Friday morning to resume his IV Vancomycin. Spoke with pharmacist and will give him 2500mg IV before he leaves today and then 2500 mg on Friday then 2000 mg daily thereafter for 7 more days. He will f/u with his PCP, Lenore Holt APRN in 10 days.
--- NOTE | 2018-03-29 09:14 | Pharmacy Consult Notes ---
- Pharmacy Consult Date: 03/29/18 Time: 09:11 Referring provider: DR. HARE Reason for Consult:: VANCOMYCIN DOSING CHANGE Allergies and ADEs:: Allergies Allergy/AdvReac Type Severity Reaction Status Date / Time No Known Allergies Allergy Verified 02/03/18 11:06 Home Medications:: Home Medications Medication Instructions Recorded Confirmed Type Cyclobenzaprine HCl 10 mg PO BIDP PRN 07/17/17 03/26/18 History [Cyclobenzaprine 10mg Tab] Methocarbamol [Methocarbamol 500mg 500 mg PO QID 07/17/17 03/26/18 History Tablet] Omeprazole [Omeprazole 20mg 20 mg PO DAILY 07/17/17 03/26/18 History Capsule] Oxycodone HCl [Oxycodone (IR) 30mg 30 mg PO Q6HP PRN 07/17/17 03/26/18 History Tab] Umeclidinium Brm/Vilanterol Tr 1 each IH BID 07/17/17 03/26/18 History [Anoro Ellipta 62.5-25 Mcg INH] Aspirin [Aspirin 81mg chewable 81 mg PO DAILY 07/18/17 03/26/18 History tab] Albuterol Sulfate [Albuterol 2.5 mg IH QID PRN 10/05/17 03/26/18 History Sulfate 2.5mg/0.5ml Neb] Bisoprolol Fumarate [Bisoprolol 5 mg PO BID 03/23/18 03/26/18 History 5mg Tablet] Clopidogrel Bisulfate [Plavix 75mg 75 mg PO DAILY 03/23/18 03/26/18 History Tab] Gabapentin [Gabapentin 800mg Tab] 800 mg PO QID 03/23/18 03/26/18 History Montelukast Sodium [Montelukast 10 mg PO HS 03/23/18 03/26/18 History 10mg Tab] Pravastatin Sodium [Pravachol 20mg 20 mg PO DAILY 03/23/18 03/26/18 History Tablet] Furosemide [Lasix 40mg tab] 40 mg PO BID 03/26/18 03/26/18 History Lisinopril [Lisinopril 10mg Tab] 10 mg PO BID 03/27/18 03/27/18 History Metformin HCl 1,000 mg PO BID 03/27/18 03/27/18 History Height: 1.7 m Weight: 126.212 kg Laboratory Results:: Laboratory Results - last 24 hr 03/28/18 12:02: POC Glucose 248 H 03/28/18 17:09: POC Glucose 228 H 03/28/18 20:41: POC Glucose 259 H 03/29/18 06:26: POC Glucose 200 H Medical History: Reports:: Cardiomyopathy, Congestive Heart Failure, Congenital Heart Disease, Coronary Artery Disease, Diabetes Mellitus Type 2, Hyperlipidemia, Hypertension, Renal Insufficiency Denies:: Cancer, Diabetes Mellitus Type 1, Internal Pacemaker, MRSA, Seizures Assessment and Plan (1) MRSA bacteremia Current visit: Yes Status: Acute Category: Medical Code(s): R78.81 - Bacteremia (2) Altered mental status Current visit: Yes Status: Acute Category: Medical Code(s): R41.82 - Altered mental status, unspecified (3) Weakness Current visit: Yes Status: Acute Category: Medical Code(s): R53.1 - Weakness (4) NYHA class 2 and ACC/AHA stage C acute on chronic systolic congestive heart failure Current visit: No Status: Chronic Category: Medical Code(s): I50.23 - Acute on chronic systolic (congestive) heart failure (5) Morbid obesity Current visit: Yes Status: Acute Category: Medical Code(s): E66.01 - Morbid (severe) obesity due to excess calories (6) Type 2 diabetes mellitus Current visit: No Status: Acute Category: Medical Code(s): E11.9 - Type 2 diabetes mellitus without complications (7) Hypertension Current visit: No Status: Chronic Qualifiers: Hypertension type: essential hypertension Qualified Code(s): I10 - Essential (primary) hypertension Category: Medical Code(s): I10 - Essential (primary) hypertension (8) History of ASCVD Current visit: Yes Status: Acute Category: Medical Code(s): Z86.79 - Personal history of other diseases of the circulatory system - Assessment and plan all Dx Assessment and Plan for all problems:: PATIENT HAS TO REPORT TO COURT IN [place] TOMORROW, FridayMarch. PATIENT WILL RECEIVE VANCOMYCIN 2500 (19.8 MG/KG) THIS MORNING BEFORE DISCHARGE. PATIENT WILL COME BACK ON FRIDAY TO CONTINUE VANCOMYCIN AN OUTPATIENT INFUSION.
--- NOTE | 2018-03-30 14:43 | Discharge Summary ---
General - General Admission date:: 03/27/18 <Raymond Baig - 04/03/18 08:13> 03/27/18 <JunTrinityKyra - 03/30/18 14:44> Discharge date: 03/29/18 <JunTrinityKyra - 03/30/18 14:49> HPI HPI: Mr. Ellsworth is a 77yo WM with a hx of HTN, DM, and CHF, who was brought to the ED from home for evaluation of weakness and confusion. Patient and family report that he was discharged two days ago following admission for CHF during which he also underwent heart cath. He developed a fever accompanied by weakness and intermittent confusion, as well as SOB the day prior to admission. Upon arrival to the ED, his SpO2 was 86% on room air. His stroke assessment was negative. He was answering questions appropriately. His CXR showed mild CHF and bibasilar atelectasis. His head CT showed chronic small bilateral subdural hematomas and was otherwise negative. He was admitted for further workup With the initial exam the patient was resting quietly in bed. He answered questions appropriately and was oriented to day of the week and current president. He denied any pain other than some right shoulder discomfort which had been ongoing. He denied any SOB. <JnuKyra - 03/30/18 14:49> Hospital Course Hospital Course: Day after admission 03/28/18 mental status had cleared. He did have a fever high of 103. He was started on Zosyn. Blood cultures revealed staph aureus and Vancomycin was added. He had no further feveers. He remained alert and oriented. He denied chest pain and his breathing was as usual. He continued with a right shoulder discomfort with decreased ROM but no erythema or edema. On 03/[address] Baig that he had to be in court at 9AM the following day in [facility] and had to leave 03/[address] Baig explained the serious nature of his MRSA infection and that he would need to complete a 10 day course of IV antibiotics. Nontheless, he insisted that he had to leave today for this appt the following day. He did agree to return to [facility] outpt 03/31, Friday morning, to resume his IV Vancomycin. Dr. Mcclain spoke with the pharmacist and the patient was given 2500mg IV before his discharge. He was then to receive 2500 mg of Vanc on Friday, and then 2000 mg daily thereafter for 7 more days. He was to f/u with his PCP, Lenore Holt APRN in 10 days. On 03/29/2018 patient was discharged to home in stable condition. To return to [facility] for IV Vanc as stated previously. Diet was to be diabetic. <Kyra Barahona - 03/30/18 15:19> Objective Vital signs: Temp Pulse Resp BP Pulse Ox 97.8 F 81 20 141/74 H 98 03/29/18 08:00 03/29/18 08:00 03/29/18 08:00 03/29/18 08:00 03/29/18 08:00 <Raymond Baig - 04/03/18 08:13> Temp Pulse Resp BP Pulse Ox 97.8 F 81 20 141/74 H 98 03/29/18 08:00 03/29/18 08:00 03/29/18 08:00 03/29/18 08:00 03/29/18 08:00 <Kyra Barahona - 03/30/18 14:44> Narrative: - Constitutional no acute distress Comments: sitting up in chair - *Routine Respiratory Exam Present: CTA bilaterally Comments: diminished in bases - *Routine Cardiovascular Exam Present: RRR - *Routine Extremities Exam Comments: right shoulder with no swelling, deformity or discoloration. Tender anteriorly. Decreased ROM due to pain. No swelling in his arm <Kyra Barahona - 03/30/18 15:19> Results Completed studies during hospitalization [Text1]: Laboratory Tests 03/26/18 03/26/18 03/26/18 20:50 20:50 20:50 WBC RBC Hgb Hct MCV MCH MCHC RDW Plt Count MPV Neut % (Auto) Lymph % (Auto) [place] % (Auto) Eos % (Auto) Baso % (Auto) Neut # (Auto) Lymph # (Auto) [place] # (Auto) Eos # (Auto) Baso # (Auto) Sodium Potassium Chloride Carbon Dioxide Anion Gap BUN Creatinine Estimated Creat Clear Estimated GFR Est GFR ( Amer) Glucose Lactate 1.3 Calcium 8.6 Total Bilirubin 0.8 AST 6 L ALT 15 Alkaline Phosphatase 74 Troponin I 0.09 H B-Natriuretic Peptide 268 H Total Protein 7.6 Albumin 3.2 L Globulin 4.4 H Albumin/Globulin Ratio 0.7 L Urine Color Urine Appearance Urine pH Ur Specific [place] Urine Protein Urine Glucose (UA) Urine Ketones Urine Blood Urine Nitrate Urine Bilirubin Urine Urobilinogen Ur Leukocyte Esterase Urine RBC Urine WBC Ur Squamous Epith Cells Urine Bacteria Influenza Type A Ag Influenza Type B Ag 03/26/18 03/26/18 03/28/18 21:25 23:22 05:40 WBC 7.9 RBC 4.17 L Hgb 11.3 L Hct 35.5 L MCV 85.1 MCH 27.0 MCHC 31.8 RDW 15.5 Plt Count 207 MPV 7.9 Neut % (Auto) 80.1 H Lymph % (Auto) 10.6 [place] % (Auto) 7.9 Eos % (Auto) 1.2 Baso % (Auto) 0.2 Neut # (Auto) 6.3 Lymph # (Auto) 0.8 [place] # (Auto) 0.6 Eos # (Auto) 0.1 Baso # (Auto) 0.0 Sodium Potassium Chloride Carbon Dioxide Anion Gap BUN Creatinine Estimated Creat Clear Estimated GFR Est GFR ( Amer) Glucose Lactate Calcium Total Bilirubin AST ALT Alkaline Phosphatase Troponin I B-Natriuretic Peptide Total Protein Albumin Globulin Albumin/Globulin Ratio Urine Color Yellow Urine Appearance Clear Urine pH 6.0 Ur Specific [place] 1.020 Urine Protein 2+ Urine Glucose (UA) 2+ Urine Ketones Negative Urine Blood Trace-i Urine Nitrate Negative Urine Bilirubin Negative Urine Urobilinogen 0.2 Ur Leukocyte Esterase Negative Urine RBC 3-5 Urine WBC Occasional Ur Squamous Epith Cells None Urine Bacteria 1+ Influenza Type A Ag Negative Influenza Type B Ag Negative 03/28/18 05:40 WBC RBC Hgb Hct MCV MCH MCHC RDW Plt Count MPV Neut % (Auto) Lymph % (Auto) [place] % (Auto) Eos % (Auto) Baso % (Auto) Neut # (Auto) Lymph # (Auto) [place] # (Auto) Eos # (Auto) Baso # (Auto) Sodium 133 L Potassium 4.0 Chloride 96 L Carbon Dioxide 30 Anion Gap 11.0 BUN 23 H Creatinine 1.57 H Estimated Creat Clear 37 Estimated GFR 43 L Est GFR ( Amer) 52 L D Glucose 239 H Lactate Calcium 8.0 L Total Bilirubin AST ALT Alkaline Phosphatase Troponin I B-Natriuretic Peptide Total Protein Albumin Globulin Albumin/Globulin Ratio Urine Color Urine Appearance Urine pH Ur Specific [place] Urine Protein Urine Glucose (UA) Urine Ketones Urine Blood Urine Nitrate Urine Bilirubin Urine Urobilinogen Ur Leukocyte Esterase Urine RBC Urine WBC Ur Squamous Epith Cells Urine Bacteria Influenza Type A Ag Influenza Type B Ag <BarahonaKyra desai - 03/30/18 15:19> Labs on day of discharge: Microbiology 03/26/18 20:05 Blood Blood Culture - Final Staphylococcus aureus <Kyra Barahona 03/30/18 15:19> - Additional Comments 03/26/18 CT of the head IMPRESSION: 1. No acute intracranial finding. 2. Possible chronic small bilateral subdural frontal hematomas. MRI may confirm 3. Right-sided the neck lipoma as described above CXR 03/26/18 IMPRESSION: Poor inspiration with mild CHF and bibasilar atelectasis <Kyra Barahona 03/30/18 15:19> DS: Diagnosis - Discharge Diagnosis (1) MRSA bacteremia Status: Acute (2) Altered mental status Status: Acute (3) Weakness Status: Acute (4) NYHA class 2 and ACC/AHA stage C acute on chronic systolic congestive heart failure Status: Chronic (5) Morbid obesity Status: Acute (6) Type 2 diabetes mellitus Status: Acute (7) Hypertension Status: Chronic (8) History of ASCVD Status: Acute <Raymond Baig - 04/03/18 08:13> (1) MRSA bacteremia Status: Acute (2) Altered mental status Status: Acute (3) Weakness Status: Acute (4) NYHA class 2 and ACC/AHA stage C acute on chronic systolic congestive heart failure Status: Chronic (5) Morbid obesity Status: Acute (6) Type 2 diabetes mellitus Status: Acute (7) Hypertension Status: Chronic (8) History of ASCVD Status: Acute <Kyra Barahona 03/30/18 15:19> Discharge Plan - Patient Discharge Instructions ACTIVITY: Continue current activity <Kyra Barahona 03/30/18 14:44> DIET: continue same diet <Kyra Barahona 03/30/18 14:44> Patient Instructions: DI for Urinary Tract Infection (UTI), DI for Bacteremia--Child <Raymond Baig - 04/03/18 08:13> Forms: <Raymond Baig 04/03/18 08:13> - Follow up Plan Follow up with: Lenore Holt APRN [Primary Care Provider] - 10 days <Raymond Baig - 04/03/18 08:13> Disposition: Home, Self-Care <SafiaRaymond Rogerio - 04/03/18 08:13> Home Medications: Home Medications Medication Instructions Recorded Confirmed Type RX: Cyclobenzaprine HCl 10 mg PO BIDP PRN 07/17/17 04/01/18 History [Cyclobenzaprine 10mg Tab] RX: Methocarbamol [Methocarbamol 500 mg PO QID 07/17/17 04/01/18 History 500mg Tablet] RX: Omeprazole [Omeprazole 20mg 20 mg PO DAILY 07/17/17 04/01/18 History Capsule] RX: Oxycodone HCl [Oxycodone (IR) 30 mg PO Q6HP PRN 07/17/17 04/01/18 History 30mg Tab] RX: Umeclidinium Brm/Vilanterol Tr 1 each IH BID 07/17/17 04/01/18 History [Anoro Ellipta 62.5-25 Mcg INH] RX: Aspirin [Aspirin 81mg chewable 81 mg PO DAILY 07/18/17 04/01/18 History tab] RX: Albuterol Sulfate [Albuterol 2.5 mg IH QID PRN 10/05/17 04/01/18 History Sulfate 2.5mg/0.5ml Neb] RX: Bisoprolol Fumarate 5 mg PO BID 03/23/18 04/01/18 History [Bisoprolol 5mg Tablet] RX: Clopidogrel Bisulfate [Plavix 75 mg PO DAILY 03/23/18 04/01/18 History 75mg Tab] RX: Gabapentin [Gabapentin 800mg 800 mg PO QID 03/23/18 04/01/18 History Tab] RX: Montelukast Sodium 10 mg PO HS 03/23/18 04/01/18 History [Montelukast 10mg Tab] RX: Pravastatin Sodium [Pravachol 20 mg PO DAILY 03/23/18 04/01/18 History 20mg Tablet] RX: Furosemide [Lasix 40mg tablet] 40 mg PO BID 03/26/18 04/01/18 History RX: Lisinopril [Lisinopril 10mg 10 mg PO BID 03/27/18 04/01/18 History Tab] RX: Metformin HCl 1,000 mg PO BID 03/27/18 04/01/18 History <Raymond Baig - 04/03/18 08:13> Prescriptions/Medication Reconciliation: Continue RX: Umeclidinium Brm/Vilanterol Tr [Anoro Ellipta 62.5-25 Mcg INH] 1 each IH BID RX: Oxycodone HCl [Oxycodone (IR) 30mg Tab] 30 mg PO Q6HP PRN PRN Reason: BREAKTHROUGH PAIN RX: Omeprazole [Omeprazole 20mg Capsule] 20 mg PO DAILY RX: Methocarbamol [Methocarbamol 500mg Tablet] 500 mg PO QID RX: Albuterol Sulfate [Albuterol Sulfate 2.5mg/0.5ml Neb] 2.5 mg IH QID PRN PRN Reason: Shortness Of Breath RX: Bisoprolol Fumarate [Bisoprolol 5mg Tablet] 5 mg PO BID RX: Gabapentin [Gabapentin 800mg Tab] 800 mg PO QID RX: Furosemide [Lasix 40mg tablet] 40 mg PO BID RX: Metformin HCl 1,000 mg PO BID RX: Cyclobenzaprine HCl [Cyclobenzaprine 10mg Tab] 10 mg PO BIDP PRN PRN Reason: MUSCLE RELAXER RX: Aspirin [Aspirin 81mg chewable tab] 81 mg PO DAILY RX: Clopidogrel Bisulfate [Plavix 75mg Tab] 75 mg PO DAILY RX: Pravastatin Sodium [Pravachol 20mg Tablet] 20 mg PO DAILY RX: Montelukast Sodium [Montelukast 10mg Tab] 10 mg PO HS RX: Lisinopril [Lisinopril 10mg Tab] 10 mg PO BID <Raymond Baig - 04/03/18 08:13> - Additional Information Additional Information: Concur with plan for discharge as outlined above. <Raymond Baig - 04/03/18 08:13>
== END 2018-03-29 12:32 | disposition home or self-care (01) ==
LOC: 2ND 19:38 → ER 19:38 → 2ND 03-27 00:08
PROVIDERS: ADMIT Family Medicine; ATTEND Family Medicine
CPT/HCPCS: 36415; 70450; 71010; 71045; 80048; 80053; 81001; 82962; 83605; 83880; 84484; 85025; 87040; 87077; 87086; 87186; 87275; 87276; 93005; 94761; 96365; 99285; G0378; J2543; J3370

== ENCOUNTER 2018-03-31 09:00 | Outpatient (CLI) | payer MEDICARE, SELFPAY ==
[2018-03-31 09:30] VITALS: BMI 42.5
[2018-03-31 09:32] VITALS: BP 160/72; PULSE 47; RESP 16; TEMP 36.8; O2SAT 94
[2018-03-31 10:45] VITALS: BP 207/81; PULSE 77; RESP 18; O2SAT 97
[2018-03-31 12:00] VITALS: BP 202/84; PULSE 78; RESP 18; O2SAT 95
== END 2018-03-31 12:05 | disposition home or self-care (01) ==
LOC: INF 09:10
PROVIDERS: PCP Nurse Practitioner Family; Visit Provider Family Medicine
DX: A49.02 Methicillin resistant Staphylococcus aureus infection, unspecified site (principal)
CPT/HCPCS: 96365; 96366; J3370

== ENCOUNTER 2018-04-01 08:45 | Outpatient (CLI) | payer MEDICARE, SELFPAY ==
[2018-04-01 09:10] VITALS: BP 124/64; PULSE 75; RESP 18; TEMP 36.8; O2SAT 96
[2018-04-01 09:40] VITALS: BP 132/69; PULSE 76; RESP 18
[2018-04-01 10:10] VITALS: BP 142/73; PULSE 81; RESP 18
[2018-04-01 10:40] VITALS: BP 126/69; PULSE 73; RESP 16
[2018-04-01 11:10] VITALS: BP 140/62; PULSE 71; RESP 18
== END 2018-04-01 11:25 | disposition home or self-care (01) ==
LOC: INF 08:57
PROVIDERS: PCP Nurse Practitioner Family; Visit Provider Family Medicine
DX: A49.02 Methicillin resistant Staphylococcus aureus infection, unspecified site (principal)
CPT/HCPCS: 96365; 96366; J3370

== ENCOUNTER 2018-04-02 09:53 | Outpatient (CLI) | payer MEDICARE, SELFPAY ==
[2018-04-02 09:55] VITALS: BMI 42.5
[2018-04-02 10:29] LABS: Anion Gap 11.1 mEq/L (5-15); Blood Urea Nitrogen 16 mg/dL (7-18); Calcium 8.5 mg/dL (8.5-10.1); Carbon Dioxide 31 mmol/L (21.0-32.0); Chloride 94 mmol/L (98-107); Creatinine Clearance Estimated 39 mL/min (0-300); Creatinine,Serum 1.59 mg/dL (0.70-1.30); Estimated Glomerular Filt Rate 43 ml/min (>60); GFR (African American) 52 ML/MIN (>60); Glucose 335 mg/dL (74-106); Potassium 3.1 mmoL/L (3.5-5.1); Sodium 133 mmol/L (136-145); Vancomycin,Trough 14.3 mcg/ml (10.0-20.0)
[2018-04-02 10:50] VITALS: BP 156/78; PULSE 67; RESP 18; TEMP 36.6; O2SAT 96
[2018-04-02 11:30] VITALS: BP 142/76; PULSE 72; RESP 16
[2018-04-02 12:00] VITALS: BP 139/82; PULSE 74; RESP 18; TEMP 36.7; O2SAT 97
[2018-04-02 12:30] VITALS: BP 149/89; PULSE 72; RESP 18
[2018-04-02 13:00] VITALS: BP 135/84; PULSE 79; RESP 18; TEMP 36.8; O2SAT 96
[2018-04-02 13:20] VITALS: BP 149/74; PULSE 68; RESP 18; TEMP 36.6; O2SAT 96
== END 2018-04-02 13:20 | disposition home or self-care (01) ==
LOC: INF 09:53
PROVIDERS: PCP Nurse Practitioner Family; Visit Provider Family Medicine
DX: A49.02 Methicillin resistant Staphylococcus aureus infection, unspecified site (principal)
CPT/HCPCS: 80048; 80202; 96365; 96366; J3370

== ENCOUNTER 2018-04-03 08:45 | Outpatient (CLI) | payer MEDICARE, SELFPAY ==
[2018-04-03 09:00] VITALS: BP 166/83; PULSE 66; RESP 18; TEMP 36.5; O2SAT 97
[2018-04-03 09:30] VITALS: BP 180/81; PULSE 69; RESP 18
[2018-04-03 10:00] VITALS: BP 159/70; PULSE 68; RESP 18
[2018-04-03 10:30] VITALS: BP 168/78; PULSE 67; RESP 18
[2018-04-03 11:00] VITALS: BP 167/92; PULSE 68; RESP 18
== END 2018-04-03 11:20 | disposition home or self-care (01) ==
LOC: INF 08:49
PROVIDERS: PCP Nurse Practitioner Family; Visit Provider Family Medicine
DX: A49.02 Methicillin resistant Staphylococcus aureus infection, unspecified site (principal); M25.511 Pain in right shoulder
CPT/HCPCS: 96365; 96366; J3370

== ENCOUNTER → 2018-04-04 08:30 | Outpatient (CLI) | payer MEDICARE, SELFPAY ==
[2018-04-04 08:30] VITALS: BP 140/74; PULSE 74; RESP 18; TEMP 36.7; O2SAT 97
[2018-04-04 08:49] VITALS: BP 140/70; BP 149/73; PULSE 69; RESP 18; TEMP 36.2; TEMP 36.7; O2SAT 95; O2SAT 97; BMI 42.4
== END ==
PROVIDERS: PCP Nurse Practitioner Family; Visit Provider Family Medicine
DX: A49.02 Methicillin resistant Staphylococcus aureus infection, unspecified site (principal); M25.511 Pain in right shoulder
CPT/HCPCS: 96365; 96366; J3370

== ENCOUNTER → 2018-04-05 08:36 | Outpatient (CLI) | payer MEDICARE, SELFPAY ==
[2018-04-05 08:36] VITALS: BP 150/72; PULSE 72; RESP 18; TEMP 36.7; O2SAT 95
[2018-04-05 08:52] VITALS: BP 142/69; PULSE 70; RESP 18; TEMP 36.8; O2SAT 98; BMI 42.3
[2018-04-05 10:00] VITALS: BP 140/72; PULSE 70; RESP 18; TEMP 36.6; O2SAT 96
== END ==
PROVIDERS: PCP Nurse Practitioner Family; Visit Provider Family Medicine
DX: A49.02 Methicillin resistant Staphylococcus aureus infection, unspecified site (principal); M25.511 Pain in right shoulder
CPT/HCPCS: 96365; 96366; J3370

== ENCOUNTER 2018-04-06 08:53 | Outpatient (CLI) | payer MEDICARE, SELFPAY ==
[2018-04-06 09:05] VITALS: BP 182/90; PULSE 73; RESP 18; TEMP 36.7; O2SAT 96
[2018-04-06 09:35] VITALS: BP 174/86; PULSE 78; RESP 18; O2SAT 95
[2018-04-06 10:05] VITALS: BP 177/88; PULSE 76; RESP 18; O2SAT 96
[2018-04-06 10:35] VITALS: BP 171/82; PULSE 74; RESP 18; O2SAT 98
[2018-04-06 11:15] VITALS: BP 169/85; PULSE 72; RESP 18; O2SAT 97
== END 2018-04-06 11:20 | disposition home or self-care (01) ==
LOC: INF 08:53
PROVIDERS: Visit Provider Family Medicine
DX: A49.02 Methicillin resistant Staphylococcus aureus infection, unspecified site (principal); M25.511 Pain in right shoulder
CPT/HCPCS: 96365; 96366; J3370

== ENCOUNTER → 2018-04-07 11:50 | Outpatient (CLI) | payer MEDICARE, SELFPAY ==
--- NOTE | 2018-04-07 11:51 | XR_ITS ---
XR shoulder RT min 2V HISTORY: ITS.REASON: right shoulder pain, swelling ORDERING PHYSICIAN: Haritha Turner PATIENT AGE: 77 years FINDINGS: There is mild inferior subluxation of the humeral head without mundo dislocation. A lateral or axillary view is needed to completely exclude possibility of posterior dislocation. There is a sclerotic focus involving the scapular ridge measuring 2.8 x 1.4 cm. This is suspicious for a blastic metastatic focus. Does the patient have history of prostate cancer or any other type of cancer? There are mild osteoarthritic changes of the AC joint. No acute fracture apparent. IMPRESSION: 1. 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 Inferior subluxation of the humeral head
== END ==
PROVIDERS: PCP Nurse Practitioner Family; Visit Provider Nurse Practitioner Family
DX: M25.511 Pain in right shoulder (principal); M79.89 Other specified soft tissue disorders
CPT/HCPCS: 73030

== ENCOUNTER → 2018-04-09 10:08 | Outpatient (CLI) | payer MEDICARE, SELFPAY ==
--- NOTE | 2018-04-09 10:10 | XR_ITS ---
XR shoulder RT 1V Ordering Physician: Etienne Crawley MD Patient Age: 77 years: Male HISTORY: ITS.REASON: right shoulder pain/ axillary view TECHNIQUE: AP shoulder COMPARISON : Right shoulder 04/07/2018 FINDINGS . There is widening of the right shoulder which is is similar if not slightly more evident than on the 04/07/2018 right shoulder radiograph. It is certainly more pronounced widening at the joint than on a CXR from March 26, 2019. . Findings were reviewed with orthopedics Dr. Crawley and felt that a CT would be appropriate to better delineate the character of abnormalities to determine there is either a prominent joint effusion versus a displacement/dislocation at glenohumeral joint again see a sclerotic focus along the posterior aspect of the right scapula with this also be further evaluated.. This was seen on a June and September 2017 study and does not seem to have progressed appreciably by these plain film comparison.. But It does warrant follow-up to better exclude early blastic lesion IMPRESSION: Abnormal widening at the glenohumeral joint reflecting effusion. Difficult to exclude possible dislocation . CT chest would be appropriate to further evaluate particularly in view of the patient's prominent pain
--- NOTE | 2018-04-09 12:16 | CT_ITS ---
. CT shoulder RT wo con 3-D CT reconstructions on workstation Ordering Physician: Etienne Crawley MD Patient Age: 77 years: Male HISTORY: ITS.REASON: rule out dislocation/ subluxation. Widening glenohumeral joint space. Severe right shoulder pain.. Recent cardiac catheter via right arm TECHNIQUE: Helical CT scanning performed at [facility] with no IV contrast utilized. Axial sagittal and coronal reconstructions performed on CT workstation. All CT scans at this facility used one or more dose reduction techniques , viz: automatic exposure control, ma/Kv adjustment per patient's size, (including targeted exam where dose matched to the indication; i.e. head); or iterative reconstruction technique COMPARISON :Plain films of shoulder 04/07/2018 as well as chest films dating back to 07/17/2017. . Also CT chest 03/23/2018. FINDINGS. Widening of the glenohumeral joint space with what appears to be a prominent generous joint effusion. Fluid most evident extending anteriorly, into the the subcoracoid recess... Streak artifact on this study due to the scanning with both shoulders down which impairs evaluation of density. It the fluid appears slightly denser than typical water density. However does not appear to be hyperdense to confirm blood. Again the streak artifact comparison density measurement Findings were discussed with Dr. Crawley & he will perform aspiration. No acute fracture is evident. The glenoid appears intact with only slight hypertrophy and roughening at anterior rim/margin Note calcification along the inferior aspect subscapularis tendon insertion. Appears be an old dystrophic calcification, less likely hypertrophic features. Unlikely current avulsion. Although could reflect reflect old injury. I believe this calcification was evident on CXR September 2017,. It measures roughly 12 mm x 5 mm. Axial slice 48 There is a focal very sclerotic area involving the spine of the scapula (Measuring nearly 3 cm maximum length X 5.5 cm X AP, 2.3 cm height.). This involves the spine of the scapula which may be slightly enlarged. By this process..... I would note that this was sclerotic focus was evident on a June 2017 CXR and is not changed significantly when comparing recent plain films/& CXR to those. Dating back to September and June 2017. AC joint arthropathy with some scant likely degenerative appearing erosive changes from such seen most evident towards the anterior aspect AC joint. A minimal fluid at this AC joint. IMPRESSION: 1. A prominent joint effusion right shoulder accounts for the widened appearance of the glenohumeral joint joint This joint fluid seems very slightly denser than typical water density, particularly where it extends to the subcoracoid recess region. However streak artifact limits CT density determination. 2. Incidental dystrophic calcification along the inferior aspect subscapularis tendon insertion. Likely long-standing incidental calcification. I believe this was vaguely evident on September 2017 CXR.,. Thus strongly Doubt recent injury or avulsion 3. AC joint arthropathy.. 4.. Dense Sclerotic focus involving spine of scapula incidentally noted . It has not changed appreciably vs Jun 2017 CXR. Any older films from elsewhere could further confirm stability.. May merely be incidental indolent sclerotic focus, but blastic lesion cannot be totally excluded.. Warrants follow-up . ( No additional osseous sclerotic foci seen on recent CT chest likely old left rib fractures are noted)
== END ==
PROVIDERS: PCP Nurse Practitioner Family; Visit Provider Orthopaedic Surgery
DX: M25.511 Pain in right shoulder (principal); S43.004A Unspecified dislocation of right shoulder joint, initial encounter
CPT/HCPCS: 73020; 73200; 87070; 87077; 87186; 87205

== ENCOUNTER 2018-04-10 11:47 | Inpatient (IN) ==
[2018-04-10 12:20] LABS: Basophils % 0.1 % (0.1-2.0); Eosinophils # 0.1 K/mm3 (0.0-0.4); Hematocrit 38.1 % (42.0-52.0); Hemoglobin 11.3 g/dL (14.1-18.0); Lymphocytes # 0.8 K/mm3 (0.7-4.5); Lymphocytes % 9.9 K/mm3 (10-50); Mean Corpuscular HGB Conc 29.8 g/dL (31.8-35.4); Mean Corpuscular Hemoglobin 26.3 pg (27.0-31.2); Mean Corpuscular Volume 88.4 fl (80-94); Mean Platelet Volume 7.6 fl (7.4-10.4); Monocytes # 0.4 K/mm3 (0.1-1.0); Monocytes % 5.3 % (1.7-9.3); Neutrophils # 6.4 K/mm3 (1.8-7.8); Neutrophils % 83.7 % (37.0-80.0); Platelet Count 281 K/mm3 (142-424); Red Blood Count 4.31 M/mm3 (4.60-6.20); Red Cell Distribution Width 14.7 % (11.5-17.5); White Blood Count 7.7 K/mm3 (4.8-10.8)
--- NOTE | 2018-04-10 13:00 | Non-Invasive Vascular Report ---
"Venous Exam Indications: 782.3 Edema. Heart cath 2 weeks prior with radial access. IMPRESSIONS 1. There is no evidence of significant reflux. 2. No evidence of deep or superficial vein thrombosis involving the veins of the right upper extremity Technically difficult exam patient unableto rotate arm or extend arm away from body making it difficult to image. Right upper extremity venous duplex. Doppler flow study including spectral analysis, color and middleton scale imaging. Location: Vascular laboratory. Patient status: Outpatient. CRITICAL FINDINGS - Reported to: JUAN CARLOS - Read back and verified. - 04/10/18 - 1300 - None Tables: Venous flow and imaging: + + + |Location |Flow properties | + + + |Right internal jugular|Normal phasicity; spontaneous; compressible | + + + |Right subclavian |Normal phasicity; spontaneous; normal | | |augmentation; compressible | + + + |Right axillary |Normal phasicity; spontaneous; normal | | |augmentation; compressible | + + + |Right brachial |Normal phasicity; spontaneous; normal | | |augmentation; compressible | + + + |Right cephalic |Normal phasicity; spontaneous; normal | | |augmentation; compressible | + + + |Right basilic |Normal phasicity; spontaneous; normal | | |augmentation; compressible | + + + |Right radial |Compressible | + + + |Right ulnar |Compressible | + + + |Left subclavian |Normal phasicity; spontaneous; normal | | |augmentation; compressible | + + + (Report amended ) Electronically signed by: Trace Nair [id number]"
[2018-04-10 13:05] LABS: Erythrocyte Sedimentation Rate 82 mm/hr (0-20)
[2018-04-10 13:08] LABS: C-Reactive Protein 5.2 mg/L (0.0-0.9); Uric Acid 6.1 mg/dL (2.6-7.2)
--- NOTE | 2018-04-10 15:25 | Progress Note ---
[facility] Anesthesia Checklist - Patient Identification Patient Identification: Arm Band, Verbal (Name & ) - Structural Data Admitted From: Direct Admit Planned Operative Procedure/s: Right shoulder arthroscopic I&D Consent for Planned Operative Procedure(s) Verified: Yes Verified Documents: Surgical Consent, History and Physical - NPO Status Verified Time NPO: 08:30 - Additional verifications Anesthesia Reactions: No - Airway Assessment C-Spine Mobility Assessed: Yes (Limited neck ROM) TMJ Mobility Assessed: Yes Dentition: Poor Dentition (Missing teeth) - Neurological Assessment Level of Consciousness: Awake Hx Seizures: No Numbness or tingling in extremities: No - Anesthesia Plan Anesthesia Risk discussed: Yes Anesthesia Plan: Verified ASA Class: III (Emergent) Anesthesia Type: General [facility] History I have reviewed the patient's past medical history: Yes Medical History: Reports:: Asthma, Cardiomyopathy, Congestive Heart Failure, Congenital Heart Disease, Coronary Artery Disease, Diabetes Mellitus Type 2, Gastroesophageal Reflux Disease(GERD), Hyperlipidemia, Hypertension, Renal Insufficiency Denies:: Cancer, Diabetes Mellitus Type 1, Internal Pacemaker, MRSA, Seizures Other Medical History: Reports: Arthritis, Other (Morbid obesity, BRAIN). Denies: Blood Transfusion Reaction Other Surgeries: Yes: Appendectomy, Cardiac Catheterization, Coronary Stent, Other. No: Pacemaker Amputation: No Fractures: No - *Social History Smoking Status: Former smoker Tobacco Type: cigarettes Alcohol Intake: never Alcohol Intake Frequency:: other Substance Use Type: denies use Occupational Status: retired, other Household Members: spouse *Family Hx:: Coronary Artery Disease, Heart Attack, Hyperlipidemia, Hypertension, Stroke
[2018-04-10 16:18] LABS: Anion Gap 13.2 mEq/L (5-15); Calcium 8.6 mg/dL (8.5-10.1); Potassium 4.2 mmoL/L (3.5-5.1)
--- NOTE | 2018-04-10 16:29 | Pharmacy Consult Notes ---
- Pharmacy Consult Date: 04/10/18 Time: 16:28 Referring provider: DR. MORALES Reason for Consult:: VANCOMYCIN DOSING Allergies and ADEs:: Allergies Allergy/AdvReac Type Severity Reaction Status Date / Time No Known Allergies Allergy Verified 02/03/18 11:06 Home Medications:: Home Medications Medication Instructions Recorded Confirmed Type Cyclobenzaprine HCl 10 mg PO BIDP PRN 07/17/17 04/10/18 History [Cyclobenzaprine 10mg Tab] Methocarbamol [Methocarbamol 500mg 500 mg PO QID 07/17/17 04/10/18 History Tablet] Omeprazole [Omeprazole 20mg 20 mg PO DAILY 07/17/17 04/10/18 History Capsule] Oxycodone HCl [Oxycodone (IR) 30mg 30 mg PO Q6HP PRN 07/17/17 04/10/18 History Tab] Umeclidinium Brm/Vilanterol Tr 1 each IH BID 07/17/17 04/10/18 History [Anoro Ellipta 62.5-25 Mcg INH] Aspirin [Aspirin 81mg chewable 81 mg PO DAILY 07/18/17 04/10/18 History tab] Albuterol Sulfate [Albuterol 2.5 mg IH QID PRN 10/05/17 04/10/18 History Sulfate 2.5mg/0.5ml Neb] Bisoprolol Fumarate [Bisoprolol 5 mg PO BID 03/23/18 04/10/18 History 5mg Tablet] Clopidogrel Bisulfate [Plavix 75mg 75 mg PO DAILY 03/23/18 04/10/18 History Tab] Gabapentin [Gabapentin 800mg Tab] 800 mg PO QID 03/23/18 04/10/18 History Montelukast Sodium [Montelukast 10 mg PO HS 03/23/18 04/10/18 History 10mg Tab] Pravastatin Sodium [Pravachol 20mg 20 mg PO DAILY 03/23/18 04/10/18 History Tablet] Lisinopril [Lisinopril 10mg Tab] 10 mg PO BID 03/27/18 04/10/18 History Metformin HCl 1,000 mg PO BID 03/27/18 04/10/18 History Furosemide [Furosemide 80mg Tab] 80 mg PO BID 04/10/18 04/10/18 History Spironolactone 50 mg PO BID 04/10/18 04/10/18 History Height: 1.73 m Weight: 127.006 kg Laboratory Results:: Laboratory Results - last 24 hr 04/10/18 11:57: WBC 7.7, RBC 4.31 L, Hgb 11.3 L, Hct 38.1 L, MCV 88.4, MCH 26.3 L, MCHC 29.8 L, RDW 14.7, Plt Count 281, MPV 7.6, Neut % (Auto) 83.7 H, Lymph % (Auto) 9.9 L, [place] % (Auto) 5.3, Eos % (Auto) 1.0, Baso % (Auto) 0.1, Neut # (Auto) 6.4, Lymph # (Auto) 0.8, [place] # (Auto) 0.4, Eos # (Auto) 0.1, Baso # (Auto) 0.0, ESR 82 H 04/10/18 11:57: Uric Acid 6.1, C-Reactive Protein 5.2 H 04/10/18 12:00: Sodium 134 L, Potassium 4.2, Chloride 96 L, Carbon Dioxide 29, Anion Gap 13.2, BUN 17, Creatinine 1.63 H, Estimated Creat Clear 38, Estimated GFR 41 L, Est GFR ( Amer) 50 L, Glucose 443 H*, Calcium 8.6 04/10/18 15:18: POC Glucose 241 H Medical History: Reports:: Asthma, Cardiomyopathy, Congestive Heart Failure, Congenital Heart Disease, Coronary Artery Disease, Diabetes Mellitus Type 2, Gastroesophageal Reflux Disease(GERD), Hyperlipidemia, Hypertension, Renal Insufficiency Denies:: Cancer, Diabetes Mellitus Type 1, Internal Pacemaker, MRSA, Seizures Assessment and Plan - Assessment and plan all Dx Assessment and Plan for all problems:: BASED ON PATIENT FACTORS, RECOMMEND VANCOMYCIN 2500 MG IV ONCE, FOLLOWED BY VANCOMYCIN 2 GM IV Q24H. PHARMACY WILL FOLLOW DAILY AND ADJUST APPROPRIATE.
--- NOTE | 2018-04-10 17:03 | Progress Note ---
[facility] Anesthesia Record Part II Discharge Time: 17:25 Destination: Medical Surgical Department PACU nurse assessment reviewed?: Yes Patient Condition:: Good Anesthesia Complications:: None
--- NOTE | 2018-04-10 17:03 | Progress Note ---
[facility] Anesthesia Record Part I Intake, IV Amount: 700 Estimated blood loss (mL): 20 Urine output (mL): 0 (NM) Blood Products used (#): none Blood Pressure: 133/66 SaO2: 95 Pulse Rate: 75 Respiratory Rate: 14 Temperature: 97.1 F Patient is:: Awake, Stable Stable to PACU at:: 16:55
--- NOTE | 2018-04-10 17:19 | Operative Note ---
Date of procedure: 04/10/18 Pre-op Diagnosis:: Right shoulder septic arthritis Post-op Diagnosis:: Right shoulder septic arthritis Procedure performed:: Right shoulder arthroscopic irrigation and debridement Surgeon:: Sancho Mera MD Uke Driver(s):: none Anesthesia: GETA Estimated blood loss (mL): 20 Operative findings:: see dictation Operative note:: INDICATIONS: THIS PATIENT IS A 77YO MALE WITH MULTIPLE MEDICAL COMORBIDITIES WHO PRESENTED WITH INCREASING RIGHT SHOULDER PAIN OVER THE PAST 1-2 WEEKS. HE NOTED ONSET SH ORTLY AFTER A CARDIAC CATH PROCEDURE AND WAS INCREASINGLY UNABLE TO MOVE THE SHOULDER. PHYSICAL EXAM WAS SIGNIFICANT FOR INDURATION ABOUT THE SHOULDER, GLOBAL TENDERNESS, AND INABILITY TO RANGE THE SHOULDER SECONDARY TO PAIN. RADIOGRAPHS AND CT DEMONSTRATED INCREASED JOINT SPACE SUGGESTIVE OF EFFUSION. LABS WERE SIGNFICANT FOR ELEVATED ESR AT 88, CRP AT 6, AND AN ASPIRATE WITH A POSITIVE GRAM STAIN. GIVEN THE PATIENT'S AGE, COMORBIDITIES AND NATURE OF THE DISEASE, HE WAS CONSENTED FOR THE AFOREMENTED PROCEDURE WHICH HE WENT FOR TODAY WITH ME. PROCEDURE: THE PATIENT WAS TAKEN FROM THE CLINIC WHERE THE OPERATIVE EXTREMITY, THE RIGHT SHOULDER, WAS MARKED AND CONFIRMED WITH THE PATIENT WELL THE CONSENT. HE WAS INTUBATED, SEDATED, AND RECEVIED GETA FOR THE DURATION OF THE CASE. HE WAS POSITIONED IN BEACH CHAIR, TAKING CARE TO MAINTAIN THE NECK IN AN ANATOMICALLY NEUTRAL POSITION AND ALL BONY PROMINENCES WERE PADDED. AT THIS POINT THE RIGHT SHOULDER, THE OPERATIVE EXTREMITY, WAS PREPPED AND DRAPED IN THE TYPICAL STERILE FASHION, AT WHICH POINT AN OPERATIVE TIMEOUT WAS PERFORMED BY ME. I THEN BEGAN BY ESTABLISHING A STANDARD POSTEROSUPERIOR PORTAL OFF OF THE POSTEROLATERAL TIP OF THE ACROMION WITH AN 11-BLADE, FOLLOWED BY INTRODUCTION OF A SCOPE TROCHAR WITH OVERLYING ARTHROSCOPIC CANNULA INTO THE GLENOHUMERAL JOINT. THE TROCHAR WAS REMOVED AND THIN, MURKY-APPEARING FLUID WITH DEPOSITS WAS EXTRICATED INTO A STERILE CUP AND SENT FOR CULTURE. THE PATIENT THEN WAS ADMINSITERED 2G OF ANCEF IV BY ANESTHESIA FOLLOWING OBTAINING CULTURES. I THEN INTRODUCED THE CAMERA, INSUFLATED THE JOINT WITH SALINE, AND ESTABLISHED AN ANTEROSUPERIOR PORTAL UNDER DIRECT VISUALIZATION, FIRST WITH A SPINAL NEEDLE, FOLLOWED BY AN 8MM SCOPE CANNULA. AT THIS POINT, I BEGAN MY DIAGNOSTIC ARTHRO SCOPY. THE BICEPS TENDON DEMONSTRATED DEGENERATIVE FRAYING DID THE LABRUM WITH ABUNDANT SYNNOVITIS THROUGHOUT THE JOINT. THE ROTATOR CUFF WAS FRAYED BUT INTACT. THE CHONDRAL SURFACES WERE SOFT BUT VIABLE. I PROCEEDED WITH A VIGOROUS DEBRIDEMENT WITH A 4.0MM SHAVER WHILE IRRIGATING WITH 9L OF NORMAL SALINE. FOLLOWING THIS THE ARTHROSCOPE WAS REINTRODUCED INTO THE SUBACROMIAL SPACE AND AN ACCESSORY LATERAL PORTAL WAS ESTABLISHED TO PERMIT PASSAGE OF THE SHAVE. I CONTINUED WITH AN ADDITIONAL 3L OF NORMAL SALINE WHILE I PERFORMED A SUBACROMIAL DEBRIDEMENT/DECOMPRESSION. AT THIS POINT, THE INSTRUMENTATION AND REMAINING ARTHROSCOPIC FLUID WAS EVACUATED FROM THE JOINT AND THE PORTAL WERE CLOSED WITH 3.0 NYLON IN PORTAL SUTURE FASHION, DRESSED WITH XEROFORM, FLUFFS, ABDS, AND MEDIPORE TAPE. THE PATIENT WAS LAYED SUPINE, EXTUBATED, AND TRANSFERRED TO THE POST-ANESTHESIA CARE UNIT IN STABLE CONDITION. DISPOSITION: THE PATIENT WILL REMAIN WBAT TO THE RUE AND MOBILIZED WITH PT. HE DOES NOT REQUIRE A SLING THIS WILL MAKE HIS SHOULDER STIFF POST-OPERATIVELY. HE WILL BE ADMITTED TO MEDICINE FOR MEDICAL MANAGEMENT UNDER DR. MORALES. HE WILL BE MAINTAINED ON POST-OPERATIVE BROAD-SPECTRUM IV ANTIBIOTICS PENDING SPECIATION OF CULTURES. THE ANTIBIOTIC MAY BE TAILORED ACCORDINGLY THEREAFTER. ORTHO WILL FOLLOW IN-HOUSE AND TREND CLINICAL EXAM AND INFLAMMATORY MARKERS TO ENSURE IMPROVEMENT. IF THE PATIENT DOES NOT IMPROVE BY FRIDAY, HE WILL BE TAKEN BACK FOR A REPEAT IRRIGATION AND DEBRIDEMENT. Condition: stable Disposition: floor Complications:: NONE
--- NOTE | 2018-04-10 17:51 | History & Physical Report ---
*Admission Date: 04/10/18 *Chief complaint: Septic right shoulder joint *History of present illness: 77-year-old male with 2 prior hospitalizations to [facility] within the last month 1 of which involved MRSA bacteremia was undergoing orthopedic evaluation for right shoulder and arm pain. X-ray had showed an effusion. Ultrasound-guided arthrocentesis was performed and has grown gram- positive cocci suspicious for staph. Patient has been admitted to the hospital after arthroscopic surgery to flush out the right shoulder joint. He is being placed on vancomycin. Patient denies fevers or chills at home. Patient finished a 10-day course of intravenous vancomycin approximately 1 week ago for his MRSA bacteremia [facility] History I have reviewed the patient's past medical history: Yes Medical History: Reports:: Asthma, Cardiomyopathy, Congestive Heart Failure, Congenital Heart Disease, Coronary Artery Disease, Diabetes Mellitus Type 2, Gastroesophageal Reflux Disease(GERD), Hyperlipidemia, Hypertension, Renal Insufficiency Denies:: Cancer, Diabetes Mellitus Type 1, Internal Pacemaker, MRSA, Seizures Other Medical History: Reports: Arthritis, Other (Morbid obesity, BRAIN). Denies: Blood Transfusion Reaction Other Surgeries: Yes: Appendectomy, Cardiac Catheterization, Coronary Stent, Other. No: Pacemaker Amputation: No Fractures: No - *Social History Educational Level: Attended Grade School Smoking Status: Former smoker Tobacco Type: cigarettes Alcohol Intake: never Alcohol Intake Frequency:: other Substance Use Type: denies use Occupational Status: retired, other Housing: house Household Members: spouse - Psychiatric History Expresses thoughts of harming self/others: None Suicide Plan Description: No Plan *Family Hx:: Coronary Artery Disease, Heart Attack, Hyperlipidemia, Hypert ension, Stroke Review of Systems - Review of Systems Review of systems:: pertinent systems reviewed and negative unless documented below - Constitutional Denies body ache(s), Denies chills, Denies daytime sleepiness - *Cardiovascular Denies chest pain, Denies chest pain at rest - *Respiratory Denies change in phlegm color, Denies chest congestion - *Gastrointestinal Denies abdominal pain, Denies belching - *Musculoskeletal Reports joint pain Meds Home Medications Medication Instructions Recorded Confirmed Type Cyclobenzaprine HCl 10 mg PO BIDP PRN 07/17/17 04/10/18 History [Cyclobenzaprine 10mg Tab] Methocarbamol [Methocarbamol 500mg 500 mg PO QID 07/17/17 04/10/18 History Tablet] Omeprazole [Omeprazole 20mg 20 mg PO DAILY 07/17/17 04/10/18 History Capsule] Oxycodone HCl [Oxycodone (IR) 30mg 30 mg PO Q6HP PRN 07/17/17 04/10/18 History Tab] Umeclidinium Brm/Vilanterol Tr 1 each IH BID 07/17/17 04/10/18 History [Anoro Ellipta 62.5-25 Mcg INH] Aspirin [Aspirin 81mg chewable 81 mg PO DAILY 07/18/17 04/10/18 History tab] Albuterol Sulfate [Albuterol 2.5 mg IH QID PRN 10/05/17 04/10/18 History Sulfate 2.5mg/0.5ml Neb] Bisoprolol Fumarate [Bisoprolol 5 mg PO BID 03/23/18 04/10/18 History 5mg Tablet] Clopidogrel Bisulfate [Plavix 75mg 75 mg PO DAILY 03/23/18 04/10/18 History Tab] Gabapentin [Gabapentin 800mg Tab] 800 mg PO QID 03/23/18 04/10/18 History Montelukast Sodium [Montelukast 10 mg PO HS 03/23/18 04/10/18 History 10mg Tab] Pravastatin Sodium [Pravachol 20mg 20 mg PO DAILY 03/23/18 04/10/18 History Tablet] Lisinopril [Lisinopril 10mg Tab] 10 mg PO BID 03/27/18 04/10/18 History Metformin HCl 1,000 mg PO BID 03/27/18 04/10/18 History Furosemide [Furosemide 80mg Tab] 80 mg PO BID 04/10/18 04/10/18 History Spironolactone 50 mg PO BID 04/10/18 04/10/18 History Allergies Allergy/AdvReac Type Severity Reaction Status Date / Time No Known Allergies Allergy Verified 02/03/18 11:06 Exam Vital signs and Labs for Last 24 Hours: Temp Pulse Resp BP Pulse Ox 97.1 F L 75 16 133/66 95 04/10/18 17:03 04/10/18 17:03 04/10/18 17:15 04/10/18 17:03 04/10/18 15:02 Laboratory Results - last 24 hr 04/10/18 11:57: WBC 7.7, RBC 4.31 L, Hgb 11.3 L, Hct 38.1 L, MCV 88.4, MCH 26.3 L, MCHC 29.8 L, RDW 14.7, Plt Count 281, MPV 7.6, Neut % (Auto) 83.7 H, Lymph % (Auto) 9.9 L, [place] % (Auto) 5.3, Eos % (Auto) 1.0, Baso % (Auto) 0.1, Neut # (Auto) 6.4, Lymph # (Auto) 0.8, [place] # (Auto) 0.4, Eos # (Auto) 0.1, Baso # (Auto) 0.0, ESR 82 H 04/10/18 11:57: Uric Acid 6.1, C-Reactive Protein 5.2 H 04/10/18 12:00: Sodium 134 L, Potassium 4.2, Chloride 96 L, Carbon Dioxide 29, Anion Gap 13.2, BUN 17, Creatinine 1.63 H, Estimated Creat Clear 38, Estimated GFR 41 L, Est GFR ( Amer) 50 L, Glucose 443 H*, Calcium 8.6 04/10/18 15:18: POC Glucose 241 H 04/10/18 16:59: POC Glucose 159 H 04/10/18 17:24: POC Glucose 138 H I & O for Last 24 hours: Intake & Output 04/08/18 04/09/18 04/10/18 04/11/18 11:59 11:59 11:59 11:59 Intake Total 700 / 700 Balance 700 / 700 Weight 280 lb Microbiology Reports for the Last 24 Hours: Microbiology 04/10/18 10:00 Shoulder,Right - Right Gram Stain - Final 04/10/18 10:00 Shoulder,Right - Final Not Reportable 04/10/18 10:00 Shoulder,Right - Final Not Reportable 04/10/18 10:00 Shoulder,Right - Final Not Reportable 04/10/18 10:00 Shoulder,Right - Final Not Reportable 04/10/18 10:00 Shoulder,Right - Final Not Reportable 04/10/18 10:00 Shoulder,Right - Final Not Reportable 04/10/18 10:00 Shoulder,Right - Final Not Reportable 04/10/18 10:00 Shoulder,Right - Final Not Reportable 04/10/18 10:00 Shoulder,Right - Final Not Reportable 04/10/18 10:00 Shoulder,Right Gram Stain Comment - Final Not Reportable Narrative: Patient is awake and alert postoperatively. He is oriented to person place and time. Oropharynx is dry. Neck is without lymphadenopathy or carotid bruits. Lungs are distant but clear to auscultation. Heart has a regular rate and rhythm. Abdomen is obese, soft. Extremities show changes consistent with chronic venous stasis with thickening of the skin of the distal legs and feet. I do not see any ulcers of the lower extremity Assessment and Plan (1) Septic joint of right shoulder region Current visit: Yes Status: Acute Category: Medical Code(s): M00.9 - Pyogenic arthritis, unspecified (2) Chronic kidney disease, stage 3 Current visit: Yes Status: Acute Category: Medical Code(s): N18.3 - Chronic kidney disease, stage 3 (moderate) (3) Chronic systolic (congestive) heart failure Current visit: Yes Status: Acute Category: Medical Code(s): I50.22 - Chronic systolic (congestive) heart failure (4) 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 extremities Current visit: Yes Status: Acute Category: Medical Code(s): I87.2 - Venous insufficiency (chronic) (peripheral) (5) Elephantiasis Current visit: No Status: Acute Category: Medical Code(s): I89.0 - Lymphedema, not elsewhere classified (6) Morbid obesity Current visit: No Status: Acute Category: Medical Code(s): E66.01 - Morbid (severe) obesity due to excess calories (7) Hypertension Current visit: No Status: Chronic Qualifiers: Hypertension type: essential hypertension Qualified Code(s): I10 - Essential (primary) hypertension Category: Medical Code(s): I10 - Essential (primary) hypertension (8) S/P coronary artery stent placement Current visit: No Status: Chronic Category: Surgical Code(s): Z95.5 - Presence of coronary angioplasty implant and graft - Assessment and plan all Dx Assessment and Plan for all problems:: 1. IV vancomycin 2. Daily CBC, C-reactive protein. BMP in a.m. 3. Home medications. Discontinue metformin and start sliding scale insulin coverage 4. Patient will be ordered his home dose of oxycodone 30 mg every 6 hours. As needed IV morphine will also be ordered
[2018-04-11 06:53] LABS: Basophils % 0.1 % (0.1-2.0); Eosinophils # 0.1 K/mm3 (0.0-0.4); Eosinophils % 0.7 % (0.1-12.0); Hematocrit 36.9 % (42.0-52.0); Hemoglobin 11.2 g/dL (14.1-18.0); Lymphocytes # 0.7 K/mm3 (0.7-4.5); Lymphocytes % 7.4 K/mm3 (10-50); Mean Corpuscular HGB Conc 30.3 g/dL (31.8-35.4); Mean Corpuscular Hemoglobin 26.4 pg (27.0-31.2); Mean Corpuscular Volume 87.3 fl (80-94); Mean Platelet Volume 7.5 fl (7.4-10.4); Monocytes # 0.5 K/mm3 (0.1-1.0); Monocytes % 4.7 % (1.7-9.3); Neutrophils # 8.6 K/mm3 (1.8-7.8); Platelet Count 322 K/mm3 (142-424); Red Blood Count 4.22 M/mm3 (4.60-6.20); Red Cell Distribution Width 14.7 % (11.5-17.5); White Blood Count 9.9 K/mm3 (4.8-10.8)
[2018-04-11 07:04] LABS: Albumin Level 2.7 gm/dL (3.4-5.0); Albumin/Globulin Ratio 0.7 (1.1-1.8); Anion Gap 8.4 mEq/L (5-15); Bilirubin,Total 0.6 mg/dL (0.2-1.0); C-Reactive Protein 6.7 mg/L (0.0-0.9); Calcium 8.4 mg/dL (8.5-10.1); Globulin 4.1 gm/dl (1.3-3.2); Potassium 4.4 mmoL/L (3.5-5.1); Total Protein,Serum 6.8 gm/dL (6.4-8.2)
[2018-04-11 07:53] LABS: Eosinophils % 2 % (0-3); Lymphocytes % 8 % (10-50); Monocytes % 2 % (2-9); Neutrophils % 85 % (42-76); Total Cells Counted 100
[2018-04-11 07:54] LABS: Stomatocytes 1+
--- NOTE | 2018-04-11 07:54 | Progress Note ---
Internal Medicine - PN: Subj *Date: 04/11/18 *Time: 07:50 Interval history: Patient complains of stiffness within the right shoulder joint. He did not sleep well and chose to sleep in the recliner which is how he sleeps at home. This would explain his significant elephantiasis Exam Vital signs and Labs for Last 24 Hours: Temp Pulse Resp BP Pulse Ox 98.5 F 64 16 120/57 L 95 04/11/18 04:00 04/11/18 04:00 04/11/18 04:00 04/11/18 04:00 04/11/18 04:00 Laboratory Results - last 24 hr 04/10/18 11:57: WBC 7.7, RBC 4.31 L, Hgb 11.3 L, Hct 38.1 L, MCV 88.4, MCH 26.3 L, MCHC 29.8 L, RDW 14.7, Plt Count 281, MPV 7.6, Neut % (Auto) 83.7 H, Lymph % (Auto) 9.9 L, [place] % (Auto) 5.3, Eos % (Auto) 1.0, Baso % (Auto) 0.1, Neut # (Auto) 6.4, Lymph # (Auto) 0.8, [place] # (Auto) 0.4, Eos # (Auto) 0.1, Baso # (Auto) 0.0, ESR 82 H 04/10/18 11:57: Uric Acid 6.1, C-Reactive Protein 5.2 H 04/10/18 12:00: Sodium 134 L, Potassium 4.2, Chloride 96 L, Carbon Dioxide 29, Anion Gap 13.2, BUN 17, Creatinine 1.63 H, Estimated Creat Clear 38, Estimated GFR 41 L, Est GFR ( Amer) 50 L, Glucose 443 H*, Calcium 8.6 04/10/18 15:18: POC Glucose 241 H 04/10/18 16:59: POC Glucose 159 H 04/10/18 17:24: POC Glucose 138 H 04/10/18 17:44: POC Glucose 119 H 04/10/18 21:45: POC Glucose 176 H 04/11/18 06:02: POC Glucose 293 H 04/11/18 06:12: WBC 9.9 D, RBC 4.22 L, Hgb 11.2 L, Hct 36.9 L, MCV 87.3, MCH 26.4 L, MCHC 30.3 L, RDW 14.7, Plt Count 322, MPV 7.5, Neut % (Auto) 87.0 H, Lymph % (Auto) 7.4 L, [place] % (Auto) 4.7, Eos % (Auto) 0.7, Baso % (Auto) 0.1, Neut # (Auto) 8.6 H, Lymph # (Auto) 0.7, [place] # (Auto) 0.5, Eos # (Auto) 0.1, Baso # (Auto) 0.0 04/11/18 06:12: Sodium 134 L, Potassium 4.4, Chloride 98, Carbon Dioxide 32, Anion Gap 8.4, BUN 16, Creatinine 1.62 H, Estimated Creat Clear 38, Estimated GFR 42 L, Est GFR ( Amer) 51 L, Glucose 281 H D, Calcium 8.4 L, Total Bilirubin 0.6, AST 14 L, ALT 28, Alkaline Phosphatase 84, C-Reactive Protein 6.7 H D, Total Protein 6.8, Albumin 2.7 L, Globulin 4.1 H, Albumin/Globulin Ratio 0.7 L I & O for Last 24 hours: Intake & Output 04/08/18 04/09/18 04/10/18 04/11/18 11:59 11:59 11:59 11:59 Intake Total 700 / 700 Output Total 300 / 300 Balance 400 / 400 Weight 286 lb Microbiology Reports for the Last 24 Hours: Microbiology 04/10/18 16:10 Aspirate Gram Stain - Final 04/10/18 10:00 Shoulder,Right - Right Gram Stain - Final 04/10/18 10:00 Shoulder,Right - Final Not Reportable 04/10/18 10:00 Shoulder,Right - Final Not Reportable 04/10/18 10:00 Shoulder,Right - Final Not Reportable 04/10/18 10:00 Shoulder,Right - Final Not Reportable 04/10/18 10:00 Shoulder,Right - Final Not Reportable 04/10/18 10:00 Shoulder,Right - Final Not Reportable 04/10/18 10:00 Shoulder,Right - Final Not Reportable 04/10/18 10:00 Shoulder,Right - Final Not Reportable 04/10/18 10:00 Shoulder,Right - Final Not Reportable 04/10/18 10:00 Shoulder,Right Gram Stain Comment - Final Not Reportable Narrative: Patient is in no distress. Lungs are clear to auscultation. Heart has a regular rate and rhythm. Patient can pronate and supinate the right forearm and flex and extend the elbow. He still has significant pain with attempted shoulder flexion and abduction Assessment and Plan (1) Septic joint of right shoulder region Current visit: Yes Status: Acute Category: Medical Code(s): M00.9 - Pyogenic arthritis, unspecified (2) Chronic kidney disease, stage 3 Current visit: Yes Status: Acute Category: Medical Code(s): N18.3 - Chronic kidney disease, stage 3 (moderate) (3) Chronic systolic (congestive) heart failure Current visit: Yes Status: Acute Category: Medical Code(s): I50.22 - Chronic systolic (congestive) heart failure (4) 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 extremities Current visit: Yes Status: Acute Category: Medical Code(s): I87.2 - Venous insufficiency (chronic) (peripheral) (5) Elephantiasis Current visit: No Status: Acute Category: Medical Code(s): I89.0 - Lymphedema, not elsewhere classified (6) Morbid obesity Current visit: No Status: Acute Category: Medical Code(s): E66.01 - Morbid (severe) obesity due to excess calories (7) Hypertension Current visit: No Status: Chronic Qualifiers: Hypertension type: essential hypertension Qualified Code(s): I10 - Essential (primary) hypertension Category: Medical Code(s): I10 - Essential (primary) hypertension (8) S/P coronary artery stent placement Current visit: No Status: Chronic Category: Surgical Code(s): Z95.5 - Presence of coronary angioplasty implant and graft - Assessment and plan all Dx Assessment and Plan for all problems:: 1. Continue vancomycin and add oral rifampin for synergism. Patient's right shoulder aspirate is growing MRSA with multiple sensitivities. Will await final results of intraoperative cultures before deciding on best antibiotic treatment regimen. Continue to follow renal function
--- NOTE | 2018-04-11 08:53 | Progress Note ---
Subjective Date: 04/11/18 Time: 08:44 Principal diagnosis: Right shoulder septic arthritis s/p irrigation and debridement Interval history: S: patient comfortable, no overnight events, reports persistent shoulder pain Denies any new chest pain/shortness of breath O: AF/VSS Gen - NAD MSK - R shoulder - surgical sites dressed, c/d/i w/o drainage, moderate TTP globally about shoulder, ROM limited by pain, str not assessed NVID RUE w/o deficits, hand W/WP Labs - CRP increased post-op 6 to 7 Intraop cultures pending - gram stain shows gram positive cocci A/P: 77M POD#1 s/p R shoulder arthroscopic I&D for right shoulder septic arthritis - Continue vanc/rifampin pending growth/speciation from intra-operative cultures - PT consulted for daily gentle ROM of R shoulder to avoid post-op stiffness - WBAT RUE, encourage ROM - IV & PO pain control, wean to PO - recommend NPO at midnight on Friday and re-evaluation Friday to determine if patient requires repeat I&D - will continue to trend clinical exam and labs daily PN: Obj Ex Vital signs: Temp Pulse Resp BP Pulse Ox 98.3 F 65 18 121/56 L 96 04/11/18 08:00 04/11/18 08:00 04/11/18 08:00 04/11/18 08:00 04/11/18 08:00 Progress Note: A&P (1) Septic joint of right shoulder region Status: Acute Current Visit: Yes (2) Chronic kidney disease, stage 3 Status: Acute Current Visit: Yes (3) Chronic systolic (congestive) heart failure Status: Acute Current Visit: Yes (4) 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 extremities Status: Acute Current Visit: Yes (5) Elephantiasis Status: Acute Current Visit: No (6) Morbid obesity Status: Acute Current Visit: No (7) Hypertension Status: Chronic Current Visit: No (8) S/P coronary artery stent placement Status: Chronic Current Visit: No
--- NOTE | 2018-04-11 11:10 | Pharmacy Consult Notes ---
[facility] Pharmacy VTE Monitoring - Patient Demographics Admission date: 04/10/18 Report Date: 04/11/18 Time: 11:10 Allergies/Adverse Reactions: Patient Allergies No Known Allergies Allergy (Verified 02/03/18 11:06) Height: 1.73 m Weight: 129.727 kg Patient Problems: Current Active Problems Septic joint of right shoulder region (Acute) Chronic kidney disease, stage 3 (Acute) Chronic systolic (congestive) heart failure (Acute) 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 extremities (Acute) - VTE Risk Labs: VTE Related Lab Results Hgb 11.2 g/dL (14.1-18.0) L 04/11/18 06:12 Hct 36.9 % (42.0-52.0) L 04/11/18 06:12 Plt Count 322 K/mm3 (142-424) 04/11/18 06:12 BUN 16 mg/dL (7-18) 04/11/18 06:12 Creatinine 1.62 mg/dL (0.70-1.30) H 04/11/18 06:12 Estimated Creat Clear 38 mL/min (0-300) 04/11/18 06:12 Was VTE Risk Assessment Performed: Yes VTE Score: 6 VTE Risk Level: Moderate Risk - Prophylaxis VTE Prophylaxis Ordered?: Yes Types of VTE Prophylaxis: TEDS Knee High Location of Applied Device: Bilateral Lower Extremeties
--- NOTE | 2018-04-12 07:08 | Progress Note ---
Internal Medicine - PN: Subj *Date: 04/12/18 *Time: 07:05 Interval history: Patient continues to complain of right shoulder pain and stiffness. He was evaluated physical therapy yesterday. He has not had any fevers. C-reactive protein had trended up yesterday. Exam Vital signs and Labs for Last 24 Hours: Temp Pulse Resp BP Pulse Ox 99.1 F 73 18 137/63 95 04/12/18 04:00 04/12/18 04:00 04/12/18 04:00 04/12/18 04:00 04/12/18 04:00 Laboratory Results - last 24 hr 04/11/18 06:12: Total Counted 100, Neutrophils % (Manual) 85 H, Lymphocytes % (Manual) 8 L, Atypical Lymphs % 3.0, Monocytes % (Manual) 2, Eosinophils % (Manual) 2, Platelet Estimate Normal, Stomatocytes 1+ 04/11/18 06:12: Sodium 134 L, Potassium 4.4, Chloride 98, Carbon Dioxide 32, Anion Gap 8.4, BUN 16, Creatinine 1.62 H, Estimated Creat Clear 38, Estimated GFR 42 L, Est GFR ( Amer) 51 L, Glucose 281 H D, Calcium 8.4 L, Total Bilirubin 0.6, AST 14 L, ALT 28, Alkaline Phosphatase 84, C-Reactive Protein 6.7 H D, Total Protein 6.8, Albumin 2.7 L, Globulin 4.1 H, Albumin/Globulin Ratio 0.7 L 04/11/18 12:29: POC Glucose 289 H 04/11/18 17:10: POC Glucose 288 H 04/11/18 21:56: POC Glucose 280 H 04/12/18 06:09: POC Glucose 259 H I & O for Last 24 hours: Intake & Output 04/09/18 04/10/18 04/11/18 04/12/18 11:59 11:59 11:59 11:59 Intake Total 940 / 940 720 / 720 Output Total 500 / 500 1000 / 1000 Balance 440 / 440 -280 / -280 Weight 286 lb Microbiology Reports for the Last 24 Hours: Microbiology 04/10/18 16:10 Aspirate Gram Stain - Final 04/10/18 16:10 Aspirate Body Fluid Culture - Preliminary NO GROWTH AFTER 24 HOURS 04/10/18 10:00 Shoulder,Right - Right Gram Stain - Final 04/10/18 10:00 Shoulder,Right - Right Wound Culture - Preliminary NO GROWTH AFTER 24 HOURS Narrative: Patient is alert and sitting up in the recliner. Less guarding of movements of the right shoulder today. Lungs are distant but clear. Heart has a regular rate and rhythm. Intraoperative culture so far are showing no growth Assessment and Plan (1) Septic joint of right shoulder region Current visit: Yes Status: Acute Category: Medical Code(s): M00.9 - Pyogenic arthritis, unspecified (2) Chronic kidney disease, stage 3 Current visit: Yes Status: Acute Category: Medical Code(s): N18.3 - Chronic kidney disease, stage 3 (moderate) (3) Chronic systolic (congestive) heart failure Current visit: Yes Status: Acute Category: Medical Code(s): I50.22 - Chronic systolic (congestive) heart failure (4) 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 extremities Current visit: Yes Status: Acute Category: Medical Code(s): I87.2 - Venous insufficiency (chronic) (peripheral) (5) Elephantiasis Current visit: No Status: Acute Category: Medical Code(s): I89.0 - Lymphedema, not elsewhere classified (6) Morbid obesity Current visit: No Status: Acute Category: Medical Code(s): E66.01 - Morbid (severe) obesity due to excess calories (7) Hypertension Current visit: No Status: Chronic Qualifiers: Hypertension type: essential hypertension Qualified Code(s): I10 - Essential (primary) hypertension Category: Medical Code(s): I10 - Essential (primary) hypertension (8) S/P coronary artery stent placement Current visit: No Status: Chronic Category: Surgical Code(s): Z95.5 - Presence of coronary angioplasty implant and graft - Assessment and plan all Dx Assessment and Plan for all problems:: 1. Await CRP 2. N.p.o. after midnight per orthopedic recommendation
--- NOTE | 2018-04-12 08:28 | Progress Note ---
Subjective Date: 04/12/18 Time: 08:16 Principal diagnosis: Right shoulder septic arthritis s/p irrigation and debridement Interval history: S: patient comfortable, no overnight events, reports improving right shoulder pain and mobility PT demonstrated ROM exercises for shoulder yesterday, patient will perform self-directed exercises Pain well-controlled on current medications Denies any new chest pain/shortness of breath O: AF/VSS Gen - NAD MSK - R shoulder - surgical sites dressed, c/d/i w/o drainage, moderate but improved TTP globally about shoulder, ROM limited by pain, strenght not assessed, NVID RUE w/o deficits, hand W/WP Labs - CRP increased post-op 7 to 11 Intraop cultures still pending - gram stain shows gram positive cocci A/P: 77M POD#2 s/p R shoulder arthroscopic I&D for right shoulder septic arthritis - Continue vanc/rifampin pending growth/speciation from intra-operative cultures - Daily gentle ROM of R shoulder to avoid post-op stiffness, patient given self-directed exercises by PT - WBAT RUE, encourage ROM and mobilization - Continue current PO pain meds - recommend NPO at midnight tonight and re-evaluation Friday to determine if patient requires repeat I&D, however given that he feels that he is improving, it is unlikely that he will require a repeat I&D - increased CRP is likely related to stress of surgery, anticipate decline over next 24hrs - will continue to trend clinical exam and labs daily PN: Obj Ex Vital signs: Temp Pulse Resp BP Pulse Ox 99.1 F 73 18 137/63 95 04/12/18 04:00 04/12/18 04:00 04/12/18 04:00 04/12/18 04:00 04/12/18 04:00 Progress Note: A&P (1) Septic joint of right shoulder region Status: Acute Current Visit: Yes (2) Chronic kidney disease, stage 3 Status: Acute Current Visit: Yes (3) Chronic systolic (congestive) heart failure Status: Acute Current Visit: Yes (4) 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 extremities Status: Acute Current Visit: Yes (5) Elephantiasis Status: Acute Current Visit: No (6) Morbid obesity Status: Acute Current Visit: No (7) Hypertension Status: Chronic Current Visit: No (8) S/P coronary artery stent placement Status: Chronic Current Visit: No
--- NOTE | 2018-04-13 05:30 | Progress Note ---
Subjective Date: 04/13/18 Time: 05:27 Principal diagnosis: Right shoulder septic arthritis s/p irrigation and debridement Interval history: S: patient comfortable this AM, no overnight events, continues to report improving right shoulder pain and mobility Unclear if patient performing self-directed exercises Pain controlled on current medications Denies any new chest pain/shortness of breath O: AF/VSS Gen - NAD MSK - R shoulder - surgical sites dressed, c/d/i, moderate but improved TTP globally about shoulder, ROM limited by pain, strength not assessed, NVID RUE w/o deficits, hand W/WP Labs - CRP pending this morning Intraop cultures pending - gram stain shows gram positive cocci A/P: 77M POD#3 s/p R shoulder arthroscopic I&D for right shoulder septic arthritis - Continue vanc/rifampin pending growth/speciation from intra-operative cultures - Daily gentle ROM of R shoulder to avoid post-op stiffness, patient given self-directed exercises by PT - WBAT RUE, encourage ROM and mobilization - Continue current PO pain meds - patient again is improved clinically, post-op pain is expected, will follow-up CRP prior to D/C - will coordinate D/C on IV vs PO antibiotics for MRSA PN: Obj Ex Vital signs: Temp Pulse Resp BP Pulse Ox 98.2 F 64 18 119/59 L 97 04/13/18 04:00 04/13/18 04:00 04/13/18 04:00 04/13/18 04:00 04/13/18 04:00 Progress Note: A&P (1) Septic joint of right shoulder region Status: Acute Current Visit: Yes (2) Chronic kidney disease, stage 3 Status: Acute Current Visit: Yes (3) Chronic systolic (congestive) heart failure Status: Acute Current Visit: Yes (4) 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 extremities Status: Acute Current Visit: Yes (5) Elephantiasis Status: Acute Current Visit: No (6) Morbid obesity Status: Acute Current Visit: No (7) Hypertension Status: Chronic Current Visit: No (8) S/P coronary artery stent placement Status: Chronic Current Visit: No
[2018-04-13 06:18] LABS: Basophils % 0.1 % (0.1-2.0); Eosinophils # 0.1 K/mm3 (0.0-0.4); Eosinophils % 1.5 % (0.1-12.0); Hematocrit 33.4 % (42.0-52.0); Hemoglobin 10.4 g/dL (14.1-18.0); Lymphocytes # 0.8 K/mm3 (0.7-4.5); Lymphocytes % 11.8 K/mm3 (10-50); Mean Corpuscular HGB Conc 31.2 g/dL (31.8-35.4); Mean Corpuscular Hemoglobin 26.7 pg (27.0-31.2); Mean Corpuscular Volume 85.5 fl (80-94); Mean Platelet Volume 7.7 fl (7.4-10.4); Monocytes # 0.5 K/mm3 (0.1-1.0); Monocytes % 7.1 % (1.7-9.3); Neutrophils # 5.1 K/mm3 (1.8-7.8); Neutrophils % 79.5 % (37.0-80.0); Platelet Count 258 K/mm3 (142-424); Red Blood Count 3.91 M/mm3 (4.60-6.20); Red Cell Distribution Width 14.6 % (11.5-17.5); White Blood Count 6.5 K/mm3 (4.8-10.8)
[2018-04-13 06:25] LABS: Anion Gap 9.7 mEq/L (5-15); C-Reactive Protein 8.6 mg/L (0.0-0.9); Calcium 8.6 mg/dL (8.5-10.1); Potassium 3.7 mmoL/L (3.5-5.1)
--- NOTE | 2018-04-13 07:07 | Progress Note ---
Internal Medicine - PN: Subj *Date: 04/13/18 *Time: 07:04 Interval history: Patient has no complaints this morning and states the shoulder feels pretty good. It still mildly stiff but range of motion is improving. He has not had any fevers. He continues on vancomycin and rifampin. Intraoperative cultures were all negative. Joint aspirate from April 09 has grown MRSA. Exam Vital signs and Labs for Last 24 Hours: Temp Pulse Resp BP Pulse Ox 98.2 F 64 18 119/59 L 97 04/13/18 04:00 04/13/18 04:00 04/13/18 04:00 04/13/18 04:00 04/13/18 04:00 Laboratory Results - last 24 hr 04/10/18 11:57: Prostate Specific Ag 6.6 H, Free PSA 0.51, % Free PSA 7.7 04/12/18 06:15: C-Reactive Protein 11.7 H D 04/12/18 11:55: POC Glucose 446 H* 04/12/18 16:43: POC Glucose 384 H* 04/12/18 21:17: POC Glucose 359 H* 04/13/18 05:48: POC Glucose 312 H* 04/13/18 05:57: WBC 6.5 D, RBC 3.91 L, Hgb 10.4 L, Hct 33.4 L, MCV 85.5, MCH 26.7 L, MCHC 31.2 L, RDW 14.6, Plt Count 258, MPV 7.7, Neut % (Auto) 79.5, Lymph % (Auto) 11.8, [place] % (Auto) 7.1, Eos % (Auto) 1.5, Baso % (Auto) 0.1, Neut # (Auto) 5.1, Lymph # (Auto) 0.8, [place] # (Auto) 0.5, Eos # (Auto) 0.1, Baso # (Auto) 0.0 04/13/18 05:57: Sodium 134 L, Potassium 3.7, Chloride 95 L, Carbon Dioxide 33 H, Anion Gap 9.7, BUN 17, Creatinine 1.70 H, Estimated Creat Clear 36, Estimated GFR 39 L, Est GFR ( Amer) 48 L, Glucose 314 H, Calcium 8.6, C-Reactive Protein 8.6 H D I & O for Last 24 hours: Intake & Output 04/10/18 04/11/18 04/12/18 04/13/18 11:59 11:59 11:59 11:59 Intake Total 940 / 940 960 / 960 600 / 600 Output Total 500 / 500 1000 / 1000 3500 / 3500 Balance 440 / 440 -40 / -40 -2900 / -2900 Weight 286 lb 282 lb 2 oz 282 lb 2.009 oz Microbiology Reports for the Last 24 Hours: Microbiology 04/10/18 18:20 Blood Blood Culture - Preliminary NO GROWTH AFTER 48 HOURS 04/10/18 18:20 Blood Blood Culture - Preliminary NO GROWTH AFTER 48 HOURS 04/10/18 16:10 Aspirate Gram Stain - Final 04/10/18 16:10 Aspirate Body Fluid Culture - Preliminary NO GROWTH AFTER 48 HOURS 04/10/18 10:00 Shoulder,Right - Right Gram Stain - Final 04/10/18 10:00 Shoulder,Right - Right Wound Culture - Preliminary NO GROWTH AFTER 48 HOURS Narrative: Patient is awake and alert. He does have improved range of motion in the right shoulder and is able to exhibit mild flexion and abduction of the shoulder joint. Lungs are distant but clear. Heart has a regular rate and rhythm. Assessment and Plan (1) Septic joint of right shoulder region Current visit: Yes Status: Acute Category: Medical Code(s): M00.9 - Pyogenic arthritis, unspecified (2) Uncontrolled diabetes mellitus Current visit: Yes Status: Acute Category: Medical Code(s): E11.65 - Type 2 diabetes mellitus with hyperglycemia (3) Chronic kidney disease, stage 3 Current visit: Yes Status: Acute Category: Medical Code(s): N18.3 - Chronic kidney disease, stage 3 (moderate) (4) Chronic systolic (congestive) heart failure Current visit: Yes Status: Acute Category: Medical Code(s): I50.22 - Chronic systolic (congestive) heart failure (5) 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 extremities Current visit: Yes Status: Acute Category: Medical Code(s): I87.2 - Venous insufficiency (chronic) (peripheral) (6) Elephantiasis Current visit: No Status: Acute Category: Medical Code(s): I89.0 - Lymphedema, not elsewhere classified (7) Morbid obesity Current visit: No Status: Acute Category: Medical Code(s): E66.01 - Morbid (severe) obesity due to excess calories (8) Hypertension Current visit: No Status: Chronic Qualifiers: Hypertension type: essential hypertension Qualified Code(s): I10 - Essential (primary) hypertension Category: Medical Code(s): I10 - Essential (primary) hypertension (9) S/P coronary artery stent placement Current visit: No Status: Chronic Category: Surgical Code(s): Z95.5 - Presence of coronary angioplasty implant and graft - Assessment and plan all Dx Assessment and Plan for all problems:: 1. From a medical standpoint patient is ready for discharge. Await orthopedic recommendations or any possible additional intervention. As far as antibiotics patient will need IV vancomycin for total of 2 weeks and on April 23. During that time patient will also take rifampin 300 mg twice daily for synergism with vancomycin. Once he is finished with his course of vancomycin and rifampin he may transition to oral doxycycline for additional 2 weeks. He can do this under the direction of his primary care provider Lenore Holt APRN. 2. Patient's diabetes is not controlled. His renal function prohibits use of metformin. Due to underlying coronary artery disease he would be a good candidate for Victoza. He will discussed this with his primary care provider.
--- NOTE | 2018-04-13 14:59 | Progress Note ---
Subjective Date: 04/13/18 Time: 13:45 Principal diagnosis: Right shoulder septic arthritis s/p irrigation and debridement Interval history: Patient is status post right shoulder arthroscopic washout for septic arthritis post op day #3. Patient is sitting out in the chair. Says he is doing well and reports no problems. He says his shoulder is more than 75% better compared to how it was before surgery. He says both the pain and mobility are improving gradually. Patient has mild pain and says it's well-controlled with medication. No history of any nausea or vomiting. No history of any cough, chest pain, shortness of breath or palpitations. Patient says he is eating and drinking well. No history of any distal tingling or numbness. No history of any fevers, chills or rigors. PN: Obj Ex Vital signs: Temp Pulse Resp BP Pulse Ox 97.7 F 69 20 120/62 97 04/13/18 12:00 04/13/18 12:00 04/13/18 12:00 04/13/18 12:00 04/13/18 12:00 Narrative: Laboratory Results - last 24 hr 04/10/18 11:57: Prostate Specific Ag 6.6 H, Free PSA 0.51, % Free PSA 7.7 04/12/18 16:43: POC Glucose 384 H* 04/12/18 21:17: POC Glucose 359 H* 04/13/18 05:48: POC Glucose 312 H* 04/13/18 05:57: WBC 6.5 D, RBC 3.91 L, Hgb 10.4 L, Hct 33.4 L, MCV 85.5, MCH 26.7 L, MCHC 31.2 L, RDW 14.6, Plt Count 258, MPV 7.7, Neut % (Auto) 79.5, Lymph % (Auto) 11.8, [place] % (Auto) 7.1, Eos % (Auto) 1.5, Baso % (Auto) 0.1, Neut # (Auto) 5.1, Lymph # (Auto) 0.8, [place] # (Auto) 0.5, Eos # (Auto) 0.1, Baso # (Auto) 0.0 04/13/18 05:57: Sodium 134 L, Potassium 3.7, Chloride 95 L, Carbon Dioxide 33 H, Anion Gap 9.7, BUN 17, Creatinine 1.70 H, Estimated Creat Clear 36, Estimated GFR 39 L, Est GFR ( Amer) 48 L, Glucose 314 H, Calcium 8.6, C-Reactive Protein 8.6 H D 04/13/18 11:28: POC Glucose 395 H* Exam General appearance: alert, active, awake, no acute distress Cardiovascular: regular rate & rhythm, normal peripheral pulses Respiratory: No respiratory distress noted, speaks in full sentences ABD: soft and non tender; obese Neuro: alert, awake, oriented x 3 Psych: Appropriate mood and affect for his situation On examination of the right shoulder, surgical dressings are clean dry and intact. The dressings were changed by me. There is a minimal of soakage of the dressings. The portals clean and healthy. There is no discharge and no evidence of any infection or other complications noted. He is topline beading machine tender mainly over the anterior shoulder with limited movements secondary to pain. Distal pulses are 2+. Distal sensation is intact to light touch throughout. There is still some residual swelling of the forearm and hand. Progress Note: A&P (1) Septic joint of right shoulder region Status: Acute Current Visit: Yes (2) Uncontrolled diabetes mellitus Status: Acute Current Visit: Yes (3) Chronic kidney disease, stage 3 Status: Acute Current Visit: Yes (4) Chronic systolic (congestive) heart failure Status: Acute Current Visit: Yes (5) 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 extremities Status: Acute Current Visit: Yes (6) Elephantiasis Status: Acute Current Visit: No (7) Morbid obesity Status: Acute Current Visit: No (8) Hypertension Status: Chronic Current Visit: No (9) S/P coronary artery stent placement Status: Chronic Current Visit: No Assessment and Plan for All Diagnoses:: I reviewed the clinical findings and progress with the patient. Patient is doin g very well and reports no problems. He says his shoulder is improved over 75% compared to how it was couple of days ago. Overall he is very happy with his progress. Continue IV vancomycin and oral rifampin and make any changes as needed. Continue gentle range of motion exercises to the right shoulder under supervision. Continue as needed pain medication. I had a lengthy discussion with the patient about better management of his diabetes including diet, exercise and medication. I have advised him to see his primary care physician for help in this regard. Patient can be discharged if appropriate from a medical standpoint. Follow-up in my office in 1 week's time with repeat CBC, ESR and CRP. Please feel free to call our office at [phone] for any orthopaedic questions. Medical management as per Dr. Ulloa.
== END 2018-04-13 15:45 | disposition home or self-care (01) ==
LOC: 2ND 11:47 → LAB 11:47 → OBSVTOIN 14:27
PROVIDERS: ADMIT Family Medicine; ATTEND Family Medicine
CPT/HCPCS: 10022; 36415; 76882; 80048; 80053; 82962; 84153; 84154; 84550; 85007; 85025; 85651; 86140; 87040; 87070; 87075; 87077; 87205; 93971; 97161; J2405; J3370

== ENCOUNTER 2018-04-14 09:03 | Outpatient (CLI) | payer MEDICARE, SELFPAY ==
[2018-04-14 09:28] VITALS: BMI 42.5
[2018-04-14 09:54] LABS: Anion Gap 7.7 mEq/L (5-15); Blood Urea Nitrogen 18 mg/dL (7-18); Calcium 8.6 mg/dL (8.5-10.1); Carbon Dioxide 34 mmol/L (21.0-32.0); Chloride 94 mmol/L (98-107); Creatinine Clearance Estimated 35 mL/min (0-300); Creatinine,Serum 1.78 mg/dL (0.70-1.30); Estimated Glomerular Filt Rate 37 ml/min (>60); GFR (African American) 45 ML/MIN (>60); Glucose 350 mg/dL (74-106); Potassium 3.7 mmoL/L (3.5-5.1); Sodium 132 mmol/L (136-145)
[2018-04-14 10:03] LABS: Vancomycin,Trough 20.7 mcg/ml (10.0-20.0)
--- NOTE | 2018-04-14 10:19 | HMH.PHACONS ---
- Pharmacy Consult Date: 04/14/18 Time: 10:19 Referring provider: DR. MORALES Reason for Consult:: VANCOMYCIN TROUGH LEVEL AND DOSING Allergies and ADEs:: Allergies Allergy/AdvReac Type Severity Reaction Status Date / Time No Known Allergies Allergy Verified 02/03/18 11:06 Home Medications:: Home Medications Medication Instructions Recorded Confirmed Type Cyclobenzaprine HCl 10 mg PO BIDP PRN 07/17/17 04/14/18 History [Cyclobenzaprine 10mg Tab] Methocarbamol [Methocarbamol 500mg 500 mg PO QID 07/17/17 04/14/18 History Tablet] Omeprazole [Omeprazole 20mg 20 mg PO DAILY 07/17/17 04/14/18 History Capsule] Oxycodone HCl [Oxycodone (IR) 30mg 30 mg PO Q6HP PRN 07/17/17 04/14/18 History Tab] Umeclidinium Brm/Vilanterol Tr 1 each IH BID 07/17/17 04/14/18 History [Anoro Ellipta 62.5-25 Mcg INH] Aspirin [Aspirin 81mg chewable 81 mg PO DAILY 07/18/17 04/14/18 History tab] Albuterol Sulfate [Albuterol 2.5 mg IH QID PRN 10/05/17 04/14/18 History Sulfate 2.5mg/0.5ml Neb] Bisoprolol Fumarate [Bisoprolol 5 mg PO BID 03/23/18 04/14/18 History 5mg Tablet] Clopidogrel Bisulfate [Plavix 75mg 75 mg PO DAILY 03/23/18 04/14/18 History Tab] Gabapentin [Gabapentin 800mg Tab] 800 mg PO QID 03/23/18 04/14/18 History Montelukast Sodium [Montelukast 10 mg PO HS 03/23/18 04/14/18 History 10mg Tab] Pravastatin Sodium [Pravachol 20mg 20 mg PO DAILY 03/23/18 04/14/18 History Tablet] Lisinopril [Lisinopril 10mg Tab] 10 mg PO BID 03/27/18 04/14/18 History Furosemide [Furosemide 80mg Tab] 80 mg PO BID 04/10/18 04/14/18 History Spironolactone 50 mg PO BID 04/10/18 04/14/18 History Insulin NPH Hum/Reg Insulin Hm 100 unit SQ ACHS 04/11/18 04/14/18 History [Novolin 70-30 100 Unit/ml Vial] rifAMPin [rifAMPin 300mg Capsule] 300 mg PO BID 04/14/18 04/14/18 History Height: 1.73 m Weight: 127.006 kg Laboratory Results:: Laboratory Results - last 24 hr 04/14/18 09:30: Sodium 132 L, Potassium 3.7, Chloride 94 L, Carbon Dioxide 34 H, Anion Gap 7.7, BUN 18, Creatinine 1.78 H, Estimated Creat Clear 35, Estimated GFR 37 L, Est GFR ( Amer) 45 L, Glucose 350 H, Calcium 8.6, Vancomycin Trough 20.7 H Medical History: Reports:: Asthma, Cardiomyopathy, Congestive Heart Failure, Congenital Heart Disease, Coronary Artery Disease, Diabetes Mellitus Type 2, Gastroesophageal Reflux Disease(GERD), Hyperlipidemia, Hypertension, Renal Insufficiency Denies:: Cancer, Diabetes Mellitus Type 1, Internal Pacemaker, MRSA, Seizures Assessment and Plan - Assessment and plan all Dx Assessment and Plan for all problems:: PATIENT'S VANCOMYCIN TROUGH LEVEL WAS 20.7 MCG/ML THIS AM PRIOR TO THE DOSE. PATIENT RECEIVED HIS VANCOMYCIN DOSE ~3 HOURS EARLY YESTERDAY AND LEVEL WAS DRAWN ~EARLY FOR DOSE TODAY. RECOMMENDED CONTINUING WITH THE CURRENT DOSE OF VANCOMYCIN 2000 MG Q24H AT THIS TIME. WILL OBTAIN TROUGH LEVEL PRIOR TO DOSE ON 04/16. PHARMACY WILL FOLLOW DAILY AND ADJUST APPROPRIATE. TOM COATES, PHARMD
[2018-04-14 10:35] VITALS: BP 155/71; PULSE 68; RESP 20; TEMP 36.9; O2SAT 96
[2018-04-14 11:35] VITALS: BP 162/72; PULSE 68; RESP 20; TEMP 36.9; O2SAT 96
[2018-04-14 12:40] VITALS: BP 155/74; PULSE 66; RESP 20; TEMP 36.9; O2SAT 96
== END 2018-04-14 12:40 | disposition home or self-care (01) ==
LOC: INF 09:04
PROVIDERS: PCP Nurse Practitioner Family; Visit Provider Family Medicine
DX: M00.9 Pyogenic arthritis, unspecified (principal); R78.81 Bacteremia
CPT/HCPCS: 80048; 80202; 96365; 96366; J3370

== ENCOUNTER 2018-04-15 08:48 | Outpatient (CLI) | payer MEDICARE, SELFPAY ==
[2018-04-15 09:15] VITALS: BP 165/72; PULSE 62; RESP 18; TEMP 36.5; O2SAT 94
[2018-04-15 09:45] VITALS: BP 158/78; PULSE 67; RESP 18; O2SAT 95
[2018-04-15 10:15] VITALS: BP 160/74; PULSE 64; RESP 18; O2SAT 95
[2018-04-15 10:45] VITALS: BP 157/79; PULSE 66; RESP 18; O2SAT 94
[2018-04-15 11:10] VITALS: BP 159/76; PULSE 67; RESP 18; O2SAT 95
== END 2018-04-15 11:15 | disposition home or self-care (01) ==
PROVIDERS: PCP Nurse Practitioner Family; Visit Provider Family Medicine
DX: M00.9 Pyogenic arthritis, unspecified (principal); R78.81 Bacteremia; R00.2 Palpitations
CPT/HCPCS: 93225; 96365; 96366; J3370

== ENCOUNTER 2018-04-16 08:45 | Outpatient (CLI) | payer MEDICARE, SELFPAY ==
[2018-04-16 09:15] VITALS: BP 152/58; PULSE 67; RESP 18; TEMP 36.5; O2SAT 100
[2018-04-16 10:09] VITALS: RESP 16
--- NOTE | 2018-04-16 10:10 | PC.NURSE ---
pt is sleeping, vs will be checked when he awakes per request of family.
[2018-04-16 11:15] VITALS: BP 177/84; PULSE 56; RESP 18
== END 2018-04-16 11:15 | disposition home or self-care (01) ==
LOC: INF 08:58
PROVIDERS: PCP Nurse Practitioner Family; Visit Provider Family Medicine
DX: M00.9 Pyogenic arthritis, unspecified (principal); R78.81 Bacteremia
CPT/HCPCS: 96365; 96366; J3370

== ENCOUNTER 2018-04-17 08:40 | Outpatient (CLI) | payer MEDICARE, SELFPAY ==
[2018-04-17 08:49] VITALS: BMI 42.5
[2018-04-17 09:22] LABS: Vancomycin,Trough 17.8 mcg/ml (10.0-20.0)
[2018-04-17 09:23] LABS: Chloride 98 mmol/L (98-107); Sodium 138 mmol/L (136-145)
--- NOTE | 2018-04-17 09:33 | HMH.PHACONS ---
- Pharmacy Consult Date: 04/17/18 Time: 09:33 Referring provider: DR. MORALES Reason for Consult:: VANCOMYCIN TROUGH LEVEL Allergies and ADEs:: Allergies Allergy/AdvReac Type Severity Reaction Status Date / Time No Known Allergies Allergy Verified 02/03/18 11:06 Home Medications:: Home Medications Medication Instructions Recorded Confirmed Type Cyclobenzaprine HCl 10 mg PO BIDP PRN 07/17/17 04/17/18 History [Cyclobenzaprine 10mg Tab] Methocarbamol [Methocarbamol 500mg 500 mg PO QID 07/17/17 04/17/18 History Tablet] Omeprazole [Omeprazole 20mg 20 mg PO DAILY 07/17/17 04/17/18 History Capsule] Oxycodone HCl [Oxycodone (IR) 30mg 30 mg PO Q6HP PRN 07/17/17 04/17/18 History Tab] Umeclidinium Brm/Vilanterol Tr 1 each IH BID 07/17/17 04/17/18 History [Anoro Ellipta 62.5-25 Mcg INH] Aspirin [Aspirin 81mg chewable 81 mg PO DAILY 07/18/17 04/17/18 History tab] Albuterol Sulfate [Albuterol 2.5 mg IH QID PRN 10/05/17 04/17/18 History Sulfate 2.5mg/0.5ml Neb] Bisoprolol Fumarate [Bisoprolol 5 mg PO BID 03/23/18 04/17/18 History 5mg Tablet] Clopidogrel Bisulfate [Plavix 75mg 75 mg PO DAILY 03/23/18 04/17/18 History Tab] Gabapentin [Gabapentin 800mg Tab] 800 mg PO QID 03/23/18 04/17/18 History Montelukast Sodium [Montelukast 10 mg PO HS 03/23/18 04/17/18 History 10mg Tab] Pravastatin Sodium [Pravachol 20mg 20 mg PO DAILY 03/23/18 04/17/18 History Tablet] Lisinopril [Lisinopril 10mg Tab] 10 mg PO BID 03/27/18 04/17/18 History Furosemide [Furosemide 80mg Tab] 80 mg PO BID 04/10/18 04/17/18 History Spironolactone 50 mg PO BID 04/10/18 04/17/18 History Insulin NPH Hum/Reg Insulin Hm 100 unit SQ ACHS 04/11/18 04/17/18 History [Novolin 70-30 100 Unit/ml Vial] rifAMPin [rifAMPin 300mg Capsule] 300 mg PO BID 04/14/18 04/17/18 History Height: 1.73 m Weight: 127.006 kg Laboratory Results:: Laboratory Results - last 24 hr 04/17/18 09:00: Vancomycin Trough 17.8 Medical History: Reports:: Asthma, Cardiomyopathy, Congestive Heart Failure, Congenital Heart Disease, Coronary Artery Disease, Diabetes Mellitus Type 2, Gastroesophageal Reflux Disease(GERD), Hyperlipidemia, Hypertension, Renal Insufficiency Denies:: Cancer, Diabetes Mellitus Type 1, Internal Pacemaker, MRSA, Seizures Assessment and Plan - Assessment and plan all Dx Assessment and Plan for all problems:: BASED ON VANCOMYCIN TROUGH LEVEL AND PATIENT FACTORS, RECOMMEND CONTINUING VANCOMYCIN 2 GM IV Q24H. PHARMACY WILL CONTINUE TO MONITOR DAILY AND ADJUST APPROPRIATE.
[2018-04-17 09:56] LABS: Anion Gap 9.5 mEq/L (5-15); Blood Urea Nitrogen 12 mg/dL (7-18); Calcium 9.1 mg/dL (8.5-10.1); Carbon Dioxide 34 mmol/L (21.0-32.0); Creatinine Clearance Estimated 40 mL/min (0-300); Creatinine,Serum 1.55 mg/dL (0.70-1.30); Estimated Glomerular Filt Rate 44 ml/min (>60); GFR (African American) 53 ML/MIN (>60); Glucose 262 mg/dL (74-106); Potassium 3.5 mmoL/L (3.5-5.1)
[2018-04-17 10:00] VITALS: BP 136/91; PULSE 67; RESP 18; TEMP 36.6; O2SAT 95
[2018-04-17 11:55] VITALS: BP 156/64; PULSE 65; RESP 18; O2SAT 96
== END 2018-04-17 12:15 | disposition home or self-care (01) ==
LOC: INF 08:56
PROVIDERS: PCP Nurse Practitioner Family; Visit Provider Family Medicine
DX: M00.9 Pyogenic arthritis, unspecified (principal); R78.81 Bacteremia; M00.811 Arthritis due to other bacteria, right shoulder
CPT/HCPCS: 36415; 80048; 80202; 96365; 96366; J3370

== ENCOUNTER → 2018-04-18 08:46 | Outpatient (CLI) | payer MEDICARE, SELFPAY ==
[2018-04-18 08:58] VITALS: BP 142/70; BP 148/72; PULSE 68; PULSE 94; RESP 18; TEMP 36.8; TEMP 37; O2SAT 93; O2SAT 94; BMI 42.1
[2018-04-18 11:55] VITALS: BP 152/75; PULSE 62; RESP 18; TEMP 37.3; O2SAT 98
== END ==
PROVIDERS: PCP Nurse Practitioner Family; Visit Provider Family Medicine
DX: M00.9 Pyogenic arthritis, unspecified (principal); M00.811 Arthritis due to other bacteria, right shoulder; R78.81 Bacteremia
CPT/HCPCS: 96365; 96366; J3370

== ENCOUNTER → 2018-04-19 08:44 | Outpatient (CLI) | payer MEDICARE, SELFPAY ==
[2018-04-19 09:10] VITALS: BP 139/78; PULSE 69; RESP 18; TEMP 36.9; O2SAT 95; BMI 41.9
[2018-04-19 11:54] VITALS: BP 134/89; PULSE 70; RESP 18; TEMP 37; O2SAT 97
--- NOTE | 2018-04-19 12:06 | PC.NURSE ---
Pt requested IV (L) wrist to be removed as he reports it being painful. No s/s of infiltration noted. Using aseptic technique, IV removed. Tip intact. Pressure applied to site and then covered /c 2x2 gauze and secured /c coban. Pt and spouse informed to call MD or report to [facility] if site becomes painful, reddened, or has drainage. Pt and spouse verbalize understanding.
== END ==
PROVIDERS: PCP Nurse Practitioner Family; Visit Provider Family Medicine
DX: M00.9 Pyogenic arthritis, unspecified (principal); M00.811 Arthritis due to other bacteria, right shoulder; R78.81 Bacteremia
CPT/HCPCS: 96365; 96366; G0463; J3370

== ENCOUNTER 2018-04-20 08:49 | Outpatient (CLI) | payer MEDICARE, SELFPAY ==
[2018-04-20 09:10] VITALS: BP 151/54; PULSE 74; RESP 20; TEMP 36.6; O2SAT 96
[2018-04-20 09:40] VITALS: BP 149/57; PULSE 71; RESP 20; O2SAT 95
[2018-04-20 10:10] VITALS: BP 145/62; PULSE 73; RESP 20; O2SAT 96
[2018-04-20 10:40] VITALS: BP 141/68; PULSE 70; RESP 20; O2SAT 95
[2018-04-20 11:00] VITALS: BP 150/64; PULSE 69; RESP 20; O2SAT 95
== END 2018-04-20 11:15 | disposition home or self-care (01) ==
LOC: INF 08:50
PROVIDERS: PCP Nurse Practitioner Family; Visit Provider Family Medicine
DX: M00.9 Pyogenic arthritis, unspecified (principal); R78.81 Bacteremia
CPT/HCPCS: 96365; 96366; J3370

== ENCOUNTER 2018-04-21 08:53 | Outpatient (CLI) | payer MEDICARE, SELFPAY ==
[2018-04-21 09:08] VITALS: BP 150/75; PULSE 65; RESP 18; TEMP 36.6; O2SAT 98
[2018-04-21 09:38] VITALS: BP 154/71; PULSE 69; RESP 18; O2SAT 97
[2018-04-21 10:08] VITALS: BP 151/76; PULSE 70; RESP 18; O2SAT 97
[2018-04-21 10:38] VITALS: BP 156/71; PULSE 67; RESP 18; O2SAT 97
[2018-04-21 11:10] VITALS: BP 154/70; PULSE 69; RESP 18; O2SAT 97
== END 2018-04-21 11:24 | disposition home or self-care (01) ==
LOC: INF 08:53
PROVIDERS: PCP Nurse Practitioner Family; Visit Provider Family Medicine
DX: M00.9 Pyogenic arthritis, unspecified (principal); R78.81 Bacteremia
CPT/HCPCS: 96365; 96366; J3370

== ENCOUNTER → 2018-04-21 11:23 | Outpatient (CLI) | payer MEDICARE, SELFPAY ==
[2018-04-21 13:21] LABS: Anion Gap 12.3 mEq/L (5-15); Blood Urea Nitrogen 8 mg/dL (7-18); Calcium 8.3 mg/dL (8.5-10.1); Carbon Dioxide 28 mmol/L (21.0-32.0); Chloride 103 mmol/L (98-107); Creatinine,Serum 1.15 mg/dL (0.70-1.30); Estimated Glomerular Filt Rate 62 ml/min (>60); GFR (African American) 75 ML/MIN (>60); Glucose 209 mg/dL (74-106); Potassium 4.3 mmoL/L (3.5-5.1); Sodium 139 mmol/L (136-145)
== END ==
PROVIDERS: Nurse Practitioner Family; PCP Nurse Practitioner Family; Visit Provider Orthopaedic Surgery
DX: E11.8 Type 2 diabetes mellitus with unspecified complications (principal); E87.6 Hypokalemia; I25.118 Atherosclerotic heart disease of native coronary artery with other forms of angina pectoris; I50.9 Heart failure, unspecified; J44.1 Chronic obstructive pulmonary disease with (acute) exacerbation; N28.9 Disorder of kidney and ureter, unspecified; R06.09 Other forms of dyspnea; R91.8 Other nonspecific abnormal finding of lung field; R78.81 Bacteremia; E78.49 Other hyperlipidemia
CPT/HCPCS: 36415; 80048; 96365; 96366; J3370

== ENCOUNTER 2018-04-22 08:52 | Outpatient (CLI) | payer MEDICARE, SELFPAY ==
[2018-04-22 09:11] VITALS: BP 162/54; PULSE 70; RESP 18; TEMP 36.6; O2SAT 96
[2018-04-22 09:41] VITALS: BP 159/55; PULSE 69; RESP 18; O2SAT 97
[2018-04-22 10:11] VITALS: BP 156/59; PULSE 67; RESP 18; O2SAT 97
[2018-04-22 10:41] VITALS: BP 154/57; PULSE 68; RESP 18; O2SAT 96
[2018-04-22 11:05] VITALS: BP 151/60; PULSE 65; RESP 18; O2SAT 96
== END 2018-04-22 11:10 | disposition home or self-care (01) ==
LOC: INF 08:52
PROVIDERS: PCP Nurse Practitioner Family; Visit Provider Family Medicine
DX: M00.9 Pyogenic arthritis, unspecified (principal); R78.81 Bacteremia; M00.811 Arthritis due to other bacteria, right shoulder
CPT/HCPCS: 96365; 96366; J3370

== ENCOUNTER → 2018-04-22 12:31 | Outpatient (CLI) | payer MEDICARE, SELFPAY ==
[2018-04-22 14:24] LABS: Basophils % 0.1 % (0.1-2.0); C-Reactive Protein 4.2 mg/L (0.0-0.9); Eosinophils # 0.1 K/mm3 (0.0-0.4); Eosinophils % 2.8 % (0.1-12.0); Hematocrit 33.1 % (42.0-52.0); Hemoglobin 10.1 g/dL (14.1-18.0); Lymphocytes # 0.8 K/mm3 (0.7-4.5); Lymphocytes % 15.4 K/mm3 (10-50); Mean Corpuscular HGB Conc 30.5 g/dL (31.8-35.4); Mean Corpuscular Hemoglobin 26.4 pg (27.0-31.2); Mean Corpuscular Volume 86.4 fl (80-94); Mean Platelet Volume 7.5 fl (7.4-10.4); Monocytes # 0.4 K/mm3 (0.1-1.0); Monocytes % 7.5 % (1.7-9.3); Neutrophils # 3.6 K/mm3 (1.8-7.8); Neutrophils % 74.1 % (37.0-80.0); Platelet Count 226 K/mm3 (142-424); Red Blood Count 3.83 M/mm3 (4.60-6.20); Red Cell Distribution Width 14.3 % (11.5-17.5); White Blood Count 4.9 K/mm3 (4.8-10.8)
[2018-04-22 16:12] LABS: Erythrocyte Sedimentation Rate 74 mm/hr (0-20)
== END ==
PROVIDERS: PCP Nurse Practitioner Family; Visit Provider Orthopaedic Surgery
DX: J44.1 Chronic obstructive pulmonary disease with (acute) exacerbation (principal); M25.511 Pain in right shoulder
CPT/HCPCS: 36415; 85025; 85651; 86140; 96365; 96366; J3370

== ENCOUNTER 2018-04-23 08:39 | Outpatient (CLI) | payer MEDICARE, SELFPAY ==
[2018-04-23 10:08] VITALS: BP 170/88; PULSE 65; RESP 18; TEMP 36.4; O2SAT 96
[2018-04-23 10:30] VITALS: BP 168/79; PULSE 72; RESP 18; TEMP 36.4; O2SAT 97
[2018-04-23 11:00] VITALS: BP 168/79; PULSE 72; RESP 20; TEMP 36.6; O2SAT 95
[2018-04-23 11:30] VITALS: BP 164/82; PULSE 69; RESP 18
[2018-04-23 12:00] VITALS: BP 149/78; PULSE 76; RESP 18; O2SAT 96
[2018-04-23 12:18] VITALS: BP 158/79; PULSE 74; RESP 20; TEMP 36.6; O2SAT 95
== END 2018-04-23 12:20 | disposition home or self-care (01) ==
LOC: INF 08:39
PROVIDERS: Visit Provider Family Medicine
DX: M00.9 Pyogenic arthritis, unspecified (principal); M00.811 Arthritis due to other bacteria, right shoulder; R78.81 Bacteremia
CPT/HCPCS: 96365; 96366; J3370

== ENCOUNTER → 2018-05-01 08:51 | Outpatient (CLI) | payer MEDICARE, SELFPAY ==
--- NOTE | 2018-05-01 09:06 | XR_ITS ---
XR shoulder RT min 2V HISTORY: Right shoulder pain, comparison to 04/07/2018 ITS.REASON: grashy, supraspinatus, axillary views ORDERING PHYSICIAN: Etienne Crawley MD PATIENT AGE: 77 years FINDINGS: There is widening of the glenohumeral joint space with mild lateral and inferior subluxation of the humeral head. No fracture or dislocation. No bony erosive process evident. Sclerotic lesion is once again noted involving the scapular ridge as before. There is also increased density involving the lateral aspect of the scapula just inferior to the glenoid also suspicious for blastic lesion. IMPRESSION: 1. Widening of the shoulder joint space. No lytic lesions evident. 2. Blastic lesions of the scapular ridge and subglenoid region of the scapula suspicious for blastic metastasis
[2018-05-01 11:05] LABS: Basophils % 0.1 % (0.1-2.0); Eosinophils # 0.1 K/mm3 (0.0-0.4); Eosinophils % 1.5 % (0.1-12.0); Hematocrit 33.8 % (42.0-52.0); Hemoglobin 10.2 g/dL (14.1-18.0); Lymphocytes # 0.6 K/mm3 (0.7-4.5); Lymphocytes % 10.2 K/mm3 (10-50); Mean Corpuscular Hemoglobin 26.2 pg (27.0-31.2); Mean Corpuscular Volume 87.1 fl (80-94); Monocytes # 0.3 K/mm3 (0.1-1.0); Monocytes % 4.4 % (1.7-9.3); Neutrophils # 4.9 K/mm3 (1.8-7.8); Neutrophils % 83.9 % (37.0-80.0); Platelet Count 242 K/mm3 (142-424); Red Blood Count 3.88 M/mm3 (4.60-6.20); Red Cell Distribution Width 14.3 % (11.5-17.5); White Blood Count 5.8 K/mm3 (4.8-10.8)
[2018-05-01 11:09] LABS: C-Reactive Protein 2.4 mg/L (0.0-0.9)
[2018-05-01 14:19] LABS: Erythrocyte Sedimentation Rate 62 mm/hr (0-20)
== END ==
PROVIDERS: PCP Nurse Practitioner Family; Visit Provider Orthopaedic Surgery
DX: B99.9 Unspecified infectious disease (principal); M25.411 Effusion, right shoulder; M25.511 Pain in right shoulder
CPT/HCPCS: 36415; 73030; 85025; 85651; 86140

== ENCOUNTER → 2018-05-14 08:46 | Outpatient (CLI) | payer MEDICARE, SELFPAY ==
--- NOTE | 2018-05-14 08:48 | XR_ITS ---
XR shoulder RT min 2V HISTORY: Right shoulder pain ITS.REASON: grashy, supraspinatus, axillary ORDERING PHYSICIAN: Etienne Crawley MD PATIENT AGE: 77 years Comparison: 05/01/2018 FINDINGS: There has been interval improvement in the subluxation of the humeral head and widening of the glenohumeral joint space. Blastic changes are once again noted involving the scapula inferior to the glenoid on the lateral scapular margin and along the scapular spine. IMPRESSION: 1. Interval improvement in the widening of the glenohumeral joint space. 2. Blastic metastasis of the right scapula
[2018-05-14 10:42] LABS: C-Reactive Protein 2.4 mg/L (0.0-0.9)
[2018-05-14 11:34] LABS: Basophils % 0.1 % (0.1-2.0); Eosinophils # 0.1 K/mm3 (0.0-0.4); Eosinophils % 2.2 % (0.1-12.0); Hematocrit 34.8 % (42.0-52.0); Hemoglobin 10.4 g/dL (14.1-18.0); Lymphocytes # 0.6 K/mm3 (0.7-4.5); Lymphocytes % 9.7 % (10-50); Mean Corpuscular HGB Conc 29.8 g/dL (31.8-35.4); Mean Corpuscular Hemoglobin 25.3 pg (27.0-31.2); Mean Platelet Volume 7.9 fl (7.4-10.4); Monocytes # 0.3 K/mm3 (0.1-1.0); Monocytes % 4.5 % (1.7-9.3); Neutrophils # 5.3 K/mm3 (1.8-7.8); Neutrophils % 83.4 % (37.0-80.0); Platelet Count 230 K/mm3 (142-424); Red Blood Count 4.09 M/mm3 (4.60-6.20); Red Cell Distribution Width 14.6 % (11.5-17.5); White Blood Count 6.3 K/mm3 (4.8-10.8)
[2018-05-14 14:43] LABS: Erythrocyte Sedimentation Rate 35 mm/hr (0-20)
== END ==
PROVIDERS: PCP Nurse Practitioner Family; Visit Provider Orthopaedic Surgery
DX: M00.9 Pyogenic arthritis, unspecified (principal); Z09 Encounter for follow-up examination after completed treatment for conditions other than malignant neoplasm
CPT/HCPCS: 36415; 73030; 85025; 85651; 86140

== ENCOUNTER → 2018-05-28 11:16 | Outpatient (CLI) | payer MEDICARE, SELFPAY ==
--- NOTE | 2018-05-28 11:18 | XR_ITS ---
XR shoulder RT min 2V HISTORY: Right shoulder pain ITS.REASON: grashy, supraspinatus, axillary ORDERING PHYSICIAN: Etienne Crawley MD PATIENT AGE: 77 years Comparison: 05/14/2018 FINDINGS: No fracture or dislocation. There is mild widening of the shoulder joint space slightly greater than when compared to the previous exam. Sclerotic lesion once again noted involving the scapular spine medially. Subcortical lucency involving the distal clavicle superiorly which is stable. IMPRESSION: No acute fracture. Mild widening of the glenohumeral joint space possibly due to positioning. Subcortical lucency of the distal clavicle possibly due to subarticular cystic change
[2018-05-28 12:07] LABS: Basophils % 0.2 % (0.1-2.0); Eosinophils # 0.1 K/mm3 (0.0-0.4); Eosinophils % 1.7 % (0.1-12.0); Hematocrit 33.1 % (42.0-52.0); Hemoglobin 10.2 g/dL (14.1-18.0); Lymphocytes # 0.7 K/mm3 (0.7-4.5); Lymphocytes % 11.9 % (10-50); Mean Corpuscular HGB Conc 30.8 g/dL (31.8-35.4); Mean Corpuscular Hemoglobin 25.6 pg (27.0-31.2); Mean Corpuscular Volume 83.3 fl (80-94); Mean Platelet Volume 8.5 fl (7.4-10.4); Monocytes # 0.3 K/mm3 (0.1-1.0); Monocytes % 4.7 % (1.7-9.3); Neutrophils # 4.8 K/mm3 (1.8-7.8); Neutrophils % 81.5 % (37.0-80.0); Platelet Count 229 K/mm3 (142-424); Red Blood Count 3.97 M/mm3 (4.60-6.20); Red Cell Distribution Width 15.1 % (11.5-17.5); White Blood Count 5.9 K/mm3 (4.8-10.8)
[2018-05-28 12:35] LABS: C-Reactive Protein 3.8 mg/L (0.0-0.9)
[2018-05-28 13:52] LABS: Erythrocyte Sedimentation Rate 49 mm/hr (0-20)
== END ==
PROVIDERS: PCP Nurse Practitioner Family; Visit Provider Orthopaedic Surgery
DX: Z09 Encounter for follow-up examination after completed treatment for conditions other than malignant neoplasm (principal); M00.9 Pyogenic arthritis, unspecified
CPT/HCPCS: 36415; 73030; 85025; 85651; 86140

== ENCOUNTER 2018-06-10 10:00 | Outpatient (RCR) | payer MEDICARE, SELFPAY ==
--- NOTE | 2018-06-03 10:44 | HMH.OTOPEV ---
OT Inpatient Evaluation Rehab OT Outpatient Eval Start: 06/03/18 10:33 Freq: Status: Active Protocol: Document 06/03/18 10:34 TFRY (Rec: 06/03/18 10:44 TFRY [id number]) Electronically Signed By Tati Garcia OT 06/03/18 10:34 Outpatient Therapy Subjective History Subjective History PATIENT SEEN THIS DATE FOR SKILLED OCCUPATIONAL THERAPY SERVICES. PATIENT HAD A SEPTIC ARTHRITIS OF RIGHT SHOULDER AND IS S/P ARTHROSCOPIC WASHOUT. PATIENT REPORTS THAT HIS SHOULDER GOT INFECTED APPROXIMATELY 3 MONTHS AGO AND HAD PROCEDURE DONE IN MARCH. Chief Complaint Stiff Prior Functional Limitations None Current Functional Limitations None Level of pain today (0-10) 0 Pain scale - at its best (0-10) 0 Pain scale - at its worst (0-10) 0 Shoulder/Elbow Eval Shoulder Objective Measurements Shoulder ROM Right Shoulder ROM Limitations Soft Tissue Tightness Shoulder Abduction Active Range of 80 Motion (degrees) Shoulder Abduction Passive Range of 90 Motion (degrees) Shoulder Flexion Active Range of Motion 95 (degrees) Query Text: Shoulder Flexion Passive Range of Motion 105 (degrees) Shoulder External Rotation Active Range 35 of Motion (degrees) Shoulder External Rotation Passive Range 40 of Motion (degrees) Shoulder Internal Rotation Active Range 40 of Motion (degrees) Shoulder Internal Rotation Passive Range 45 of Motion (degrees) decreased ROM shoulder exam standard right Shoulder MMT Shoulder Strength Reason Not Measured Orthopedic Precautions Elbow Objective Measurements OT Outpatient Assessment Impairments Problems/Impairments Impaired Range of Motion Impaired Strength Prognosis Rehab Potential Good Clinical Impression Consistent with Diagnosis Yes Short Term Goals Number of Weeks 3 Increase Range of Motion Yes: RIGHT SHOULDER PROM - WFL THROUGHOUT Increase Strength Yes: RIGHT SHOULDER STRENGTH - 3/5 THROUGHOUT Patient to be Ind w/ HEP Yes Patient to be Ind w/ Advanced HEP Yes Detention Goals Number of Weeks 6 Increase Range of Motion Yes: RIGHT SHOULDER AROM - WFL THROUGHOUT Increase Strength Yes: RIGHT SHOULDER STRENGTH - 4/5 THROUGHOUT Patient to be Ind w/ HEP
== END 2018-07-17 11:00 | disposition home or self-care (01) ==
LOC: OT 10:00
PROVIDERS: Visit Provider Orthopaedic Surgery
DX: M00.9 Pyogenic arthritis, unspecified (principal)
CPT/HCPCS: 97110; 97165

== ENCOUNTER → 2018-06-25 13:09 | Outpatient (CLI) | payer MEDICARE, SELFPAY ==
--- NOTE | 2018-06-25 13:13 | XR_ITS ---
XR shoulder RT min 2V COMPARISON: Right shoulder 05/28/2018 HISTORY: Right shoulder pain TECHNIQUE: 4 views right shoulder FINDINGS: The lateral clavicle appears intact. There is degenerative changes AC joint with joint space narrowing and mild spurring inferiorly. Again noted is slight widening of the glenohumeral joint unchanged from previous study and likely simply a normal variation in this patient. The humeral head and glenoid otherwise appear normal. There are tiny faint calcification seen at the inferior glenohumeral joint. IMPRESSION: Slight widening of the glenohumeral joint likely normal variation in this patient
[2018-06-25 13:33] LABS: Basophils % 0.1 % (0.1-2.0); Eosinophils # 0.1 K/mm3 (0.0-0.4); Eosinophils % 1.7 % (0.1-12.0); Hematocrit 33.1 % (42.0-52.0); Lymphocytes # 0.8 K/mm3 (0.7-4.5); Lymphocytes % 11.4 % (10-50); Mean Corpuscular HGB Conc 30.2 g/dL (31.8-35.4); Mean Corpuscular Volume 82.8 fl (80-94); Mean Platelet Volume 7.7 fl (7.4-10.4); Monocytes # 0.4 K/mm3 (0.1-1.0); Neutrophils # 5.6 K/mm3 (1.8-7.8); Neutrophils % 80.8 % (37.0-80.0); Platelet Count 223 K/mm3 (142-424); Red Cell Distribution Width 14.7 % (11.5-17.5)
[2018-06-25 14:22] LABS: C-Reactive Protein 2.8 mg/L (0.0-0.9)
[2018-06-25 15:07] LABS: Erythrocyte Sedimentation Rate 40 mm/hr (0-20)
== END ==
PROVIDERS: PCP Nurse Practitioner Family; Visit Provider Orthopaedic Surgery
DX: M00.9 Pyogenic arthritis, unspecified (principal); Z09 Encounter for follow-up examination after completed treatment for conditions other than malignant neoplasm
CPT/HCPCS: 36415; 73030; 85025; 85651; 86140

== ENCOUNTER → 2018-07-14 09:57 | Outpatient (CLI) | payer MEDICARE, SELFPAY ==
[2018-07-14 11:01] LABS: Anion Gap 10.6 mEq/L (5-15); Blood Urea Nitrogen 30 mg/dL (7-18); Calcium 8.6 mg/dL (8.5-10.1); Carbon Dioxide 30 mmol/L (21.0-32.0); Chloride 101 mmol/L (98-107); Creatinine,Serum 1.95 mg/dL (0.70-1.30); Estimated Glomerular Filt Rate 34 ml/min (>60); GFR (African American) 41 ML/MIN (>60); Potassium 4.6 mmoL/L (3.5-5.1); Sodium 137 mmol/L (136-145)
[2018-07-14 11:15] LABS: Glucose 287 mg/dL (74-106)
== END ==
PROVIDERS: Visit Provider Urology
DX: I10 Essential (primary) hypertension (principal); I25.118 Atherosclerotic heart disease of native coronary artery with other forms of angina pectoris; Z95.5 Presence of coronary angioplasty implant and graft
CPT/HCPCS: 36415; 80048

== ENCOUNTER → 2018-08-06 11:49 | Outpatient (CLI) | payer MEDICARE, SELFPAY ==
--- NOTE | 2018-08-06 11:58 | XR_ITS ---
XR shoulder RT min 2V Ordering Physician: Etienne Crawley MD Patient Age: 78 years: Male HISTORY: ITS.REASON: grashy, supraspinatus and axillary views TECHNIQUE: Right shoulder 3 view Supraspinatus, Grashey and axillary view COMPARISON :06/25/2018 FINDINGS Again see the degenerative changes at the AC joint. The glenohumeral joint seems to be intact. There is some irregular calcification or possible old avulsion overlying anterior aspect of the humeral neck/head on today's axillary cc view, similar to the June 25 & May 14 2018 right shoulder axillary view.. This was also seen on the CT study from March 2018 at anterior margin of humerus. It is unchanged There is area of increased density along the superior margin of the scapula this is seen on March 2018 and appears grossly similar. Slightly generous with of the glenohumeral joint again noted and could reflect a previous joint effusion IMPRESSION:-- . No change since prior study. The generous size sclerotic/blastic focus superior margin of scapula again noted. (Might consider bone scan to see if there are other sclerotic abnormalities in to see if this area is active, particularly if pain at right shoulder) AC joint arthropathy. The small dystrophic calcification or possibly small old avulsion along the anterior base of humeral neck, near subscapularis insertion, again noted a stable Slight Generous width AC joint could reflect persistent underlying joint effusion.
[2018-08-06 12:01] LABS: Basophils % 0.3 % (0.1-2.0); Eosinophils # 0.1 K/mm3 (0.0-0.4); Hematocrit 34.7 % (42.0-52.0); Hemoglobin 10.5 g/dL (14.1-18.0); Lymphocytes # 0.8 K/mm3 (0.7-4.5); Lymphocytes % 12.5 % (10-50); Mean Corpuscular HGB Conc 30.3 g/dL (31.8-35.4); Mean Corpuscular Hemoglobin 23.4 pg (27.0-31.2); Mean Corpuscular Volume 77.2 fl (80-94); Mean Platelet Volume 9.4 fl (7.4-10.4); Monocytes # 0.3 K/mm3 (0.1-1.0); Monocytes % 4.1 % (1.7-9.3); Neutrophils # 5.4 K/mm3 (1.8-7.8); Neutrophils % 81.1 % (37.0-80.0); Platelet Count 237 K/mm3 (142-424); White Blood Count 6.7 K/mm3 (4.8-10.8)
[2018-08-06 12:49] LABS: C-Reactive Protein 1.2 mg/L (0.0-0.9)
[2018-08-06 12:58] LABS: Erythrocyte Sedimentation Rate 40 mm/hr (0-20)
== END ==
PROVIDERS: Visit Provider Orthopaedic Surgery
DX: M00.9 Pyogenic arthritis, unspecified (principal); Z09 Encounter for follow-up examination after completed treatment for conditions other than malignant neoplasm
CPT/HCPCS: 36415; 73030; 85025; 85651; 86140

== ENCOUNTER → 2018-11-09 15:19 | Outpatient (CLI) | payer MEDICARE, SELFPAY | PROVIDERS: PCP Nurse Practitioner Family; Visit Provider Internal Medicine | DX: R00.2 Palpitations (principal); I25.10 Atherosclerotic heart disease of native coronary artery without angina pectoris; R07.9 Chest pain, unspecified; I42.9 Cardiomyopathy, unspecified | CPT/HCPCS: 93225; 93226 ==

== ENCOUNTER 2018-11-11 10:00 | Outpatient (RCR) | payer MEDICARE, SELFPAY | END 2018-11-11 10:05 | disposition home or self-care (01) | LOC: PT 10:00 | PROVIDERS: Visit Provider Internal Medicine | DX: I89.0 Lymphedema, not elsewhere classified (principal) | CPT/HCPCS: 29580; 97163 ==

== ENCOUNTER → 2018-11-13 14:04 | Outpatient (CLI) | payer MEDICARE, SELFPAY ==
--- NOTE | 2018-11-13 14:08 | CA_ITS ---
PROCEDURE: 2-D M-mode and color Doppler study INDICATIONS FOR THE TEST: Chest pain+ COPD Heart Murmur Tobacco Smoking Palpitations+ Fatigue Syncope Edema Hypertension+Diabetes Mellitus Rheumatic Fever SOB GAMA+Obesity Hyperlipidemia+ Family History HD+ Additional History CM, CAD, stent, lung mass PATIENT INFORMATION HEIGHT: 68 WEIGHT: 288 GENDER: Male B/P: 156/64 2-D/M-MODE INTERPRETATION: 2-D MEASUREMENTS OBSERVED VALUES IN CMS Right Ventricular Dimension (RVDd) 2.1 Interventricular Septum (Thickness)(IVsd) 1.3 Left Ventricular Internal Dimensions(LVIDd) 5.2 Left Ventricular Posterior Wall (Thickness)(LVPWd) 1.2 Aortic Root 2.3 Aortic Cusp Separation 2.1 Left Atrial Dimensions (LAD) 4.1 2D 1. Left atrium is mildly enlarged, left ventricle is normal size, mild concentric left ventricular hypertrophy, visually estimated ejection fraction 55% with no regional wall motion abnormality. 2. The right atrium and right ventricle are normal size and contractility. 3. The aortic valve is thickened and calcified leaflet continue to display good mobility. 4. The mitral and tricuspid valvular grossly normal. 5. The pulmonic valve is poorly visualized. 6. No significant pericardial effusion noted. DOPPLER INTERROGATION: Doppler interrogation of the aortic, mitral and tricuspid valvular presence of mild mitral and tricuspid regurgitation, tricuspid regurgitation jet velocity is inadequate for calculation of the right ventricular systolic pressure. Diastolic parameters are inconclusive. CONCLUSION: 1. Technically difficult study because of the patient's factor and poor acoustic windows 2. Normal left ventricular size, preserved left ventricular systolic function, visually estimated ejection fraction 55% with no regional wall motion abnormality, diastolic parameters are inconclusive. 3. Mild mitral and tricuspid addition 4. No significant pericardial effusion noted.
== END ==
PROVIDERS: PCP Nurse Practitioner Family; Visit Provider Internal Medicine
DX: I25.5 Ischemic cardiomyopathy; I25.10 Atherosclerotic heart disease of native coronary artery without angina pectoris; E11.9 Type 2 diabetes mellitus without complications; E78.5 Hyperlipidemia, unspecified; I50.23 Acute on chronic systolic (congestive) heart failure; I50.9 Heart failure, unspecified; J44.1 Chronic obstructive pulmonary disease with (acute) exacerbation; N28.9 Disorder of kidney and ureter, unspecified; R00.2 Palpitations; R06.09 Other forms of dyspnea; R60.9 Edema, unspecified; R94.31 Abnormal electrocardiogram [ECG] [EKG]; Z79.4 Long term (current) use of insulin
CPT/HCPCS: 93306

== ENCOUNTER → 2019-03-08 07:46 | Outpatient (CLI) | payer MEDICARE, SELFPAY ==
--- NOTE | 2019-03-08 07:55 | CA_ITS ---
APPROVED REPORT Facility Sales And Admin: JESUS Study Quality: Adequate Indications: CKD STAGE 3 Risk Factors Hypertension Hyperlipidemia Obesity Diabetes Renal Artery Doppler Origin (R) 135.0/22.7 cm/sec Proximal (R) 136.0/19.2 cm/sec Mid (R) 117.0/15.9 cm/sec Distal (R) 111.0/17.1 cm/sec Renal Aorta Ratio (R) 1.30 Segmental A. (R) 39.1/7.5 cm/sec RI: 0.80 Segmental A. Sup (R) 42.5/4.4 cm/sec Segmental A. Mid (R) 34.2/11.2 cm/sec Segmental A. Inf (R) 40.6/6.8 cm/sec Origin (L) 108.0/19.6 cm/sec Proximal (L) 121.0/19.6 cm/sec Mid (L) 105.0/27.0 cm/sec Distal (L) 105.0/12.2 cm/sec Renal Aorta Ratio (L) 1.16 Segmental A. (L) 69.2/13.7 cm/sec RI: 0.80 Segmental A. Sup (L) 76.1/15.2 cm/sec Segmental A. Mid (L) 85.9/17.5 cm/sec Segmental A. Inf (L) 45.6/8.4 cm/sec Renal Measurements Kidney Size (R) 12.9x9.5 cm Cortical Thickness (R) 1.9 cm Kidney Size (L) 14.0x9.3 cm Cortical Thickness (L) 1.4 cm Aortic Doppler Velocity Waveform Sup Mike Ao 104.0 cm/sec Findings No evidence of renal artery stenosis. Elevated RI's (0.8) seen bilateral kidneys. Conclusion No evidence of renal artery stenosis. Elevated RI's (0.8) seen bilateral kidneys. Electronically signed by : Trace Nair MD 03/10/2019 19:44:07
--- NOTE | 2019-03-08 08:27 | US_ITS ---
PROCEDURE: US KIDNEY CLINICAL INDICATION: KIDNEY DISEASE STAGE 3,TYPE II DIABETES,HTN,HYPERLIPIDEMIA COMPARISON: CA RENAL ARTERY DUPLEX from 03/08/2019 FINDINGS: Right kidney is 11 x 5.8 x 8 cm. There is cortical thinning. No hydronephrosis. Normal echogenicity. The left kidney is 12 x 6 x 7 cm. No hydronephrosis. Mild cortical thinning. Incidental note is made of splenomegaly at 14 cm IMPRESSION: No hydronephrosis. Mild bilateral renal cortical thinning Dictated by: Trace Nair MD 03/08/2019 16:13 Electronically signed by Trace Nair MD in [place] 03/08/2019 16:13
== END ==
PROVIDERS: PCP Nurse Practitioner Family; Visit Provider Internal Medicine Nephrology
DX: N18.3 Chronic kidney disease, stage 3 (moderate) (principal); E11.21 Type 2 diabetes mellitus with diabetic nephropathy; E78.5 Hyperlipidemia, unspecified; Z79.4 Long term (current) use of insulin
CPT/HCPCS: 76770; 93976

== ENCOUNTER 2019-03-23 15:12 | Inpatient (IN) ==
--- NOTE | 2019-03-23 15:33 | Emergency Department Note ---
ED Disposition Clinical Impression: Abscess of right thigh, Cellulitis of right thigh Disposition: Admitted as Observation Condition on Discharge: Fair Referrals: Michelle Mcgovern [Primary Care Provider] - - Critical Care Critical Care Time: No Attestation: On , the high probability of a clinically significant, sudden or life threatening deterioration of the following system(s) required my full and direct attention, intervention and personal management. The time I documented below is in addition to time spent performing reported procedures but includes the following listed in this critical care notation. Medical Decision Making - [place]e Inquiry Pt receiving controlled substance: No Vital Signs: 03/23/19 15:14 03/23/19 15:30 03/23/19 16:14 Temperature 98.7 F Temperature Source Oral Pulse Rate [Right Radial] 83 80 78 Respiratory Rate 18 18 18 Blood Pressure [Right Arm] 148/67 H 150/53 H 155/58 H Blood Pressure Mean [Right Arm] 94 85 90 Blood Pressure Source [Right Arm] Automatic Cuff Automatic Cuff Automatic Cuff Blood Pressure Position [Right Arm] Supine Sitting Supine 02 Sat by Pulse Oximetry 96 92 L 96 Oxygen Delivery Method Room Air Room Air Room Air - Lab Data Lab Results 03/23/19 15:42: WBC 16.3 H, RBC 4.24 L, Hgb 11.7 L, Hct 36.2 L, MCV 85.3, MCH 27.5, MCHC 32.2, RDW 16.6, Plt Count 307, MPV 8.7, Neut % (Auto) 88.2 H, Lymph % (Auto) 4.8 L, [place] % (Auto) 6.1, Eos % (Auto) 0.7, Baso % (Auto) 0.1, Neut # (Auto) 14.4 H, Lymph # (Auto) 0.8, [place] # (Auto) 1.0, Eos # (Auto) 0.1, Baso # (Auto) 0.0, Total Counted 100, Neutrophils % (Manual) 90 H, Lymphocytes % (Manual) 3 L, Monocytes % (Manual) 4, Eosinophils % (Manual) 2, Metamyelocytes % 1.0, Platelet Estimate Normal, RBC Morphology Normal 03/23/19 15:42: Sodium 131 L, Potassium 4.4, Chloride 92 L, Carbon Dioxide 32, Anion Gap 11.4, BUN 21 H, Creatinine 1.92 H, Estimated Creat Clear 32, Estimated GFR 34 L, Est GFR ( Amer) 41 L, Glucose 110 H, Calcium 8.9, Total Bilirubin 0.8, AST 19, ALT 14, Alkaline Phosphatase 83, Total Protein 7.7, Albumin 3.0 L, Globulin 4.7 H, Albumin/Globulin Ratio 0.6 L 03/23/19 15:42: Lactate 1.4 03/23/19 15:42: Urine Color Yellow, Urine Appearance Clear, Urine pH 5.5, Ur Specific [place] 1.015, Urine Protein Negative, Urine Glucose (UA) 2+, Urine Ketones Negative, Urine Blood Trace-i, Urine Nitrate Negative, Urine Bilirubin Negative, Urine Urobilinogen 1.0, Ur Leukocyte Esterase Negative, Urine RBC Occasional, Urine WBC Occasional, Ur Squamous Epith Cells Occasional, Urine Bacteria Trace Result diagrams: 03/23/19 15:42 03/23/19 15:42 Orders (Tests/Meds): ED MEDICATIONS Generic Name Dose Route Start Last Admin Trade Name Freq PRN Reason Stop Dose Admin Piperacillin Sod/Tazobactam 50 mls @ 100 mls/hr 03/23/19 16:00 03/23/19 16:41 Sod 3.375 gm/ Sodium Chloride IV 04/06/19 15:59 100 mls/hr Q6H SHAE Administration Protocol Vancomycin HCl 2,000 mg/ 250 mls @ 125 mls/hr 03/23/19 17:00 Sodium Chloride IV 04/06/19 16:59 Q24H SHAE Miscellaneous 1 each 03/23/19 16:00 03/23/19 16:40 Vancomycin Consult Request NOTAPPLIC 04/22/19 15:59 1 each CONSULT PHARMACY SHAE Administration ORDERS Category Date Time Status Blood Culture Stat Micro 03/23/19 15:42 Received - Physician Consults Physician Consulted: [facility] Time: 16:50 Reason -: Admission Comment/Response: Agrees to admit the patient to the hospital. We discussed the patient's clinical information, including history, exam, laboratory and radiology results and ED course. Per hospital procedure, I will write temporary bridge inpatient orders on the patient. Specific orders requested by the admitting physician: Continue antibiotics, surgical consult Additional Consult: [place] Time: 16:56 Reason -: Surgical Eval/Care Comment/Response: NPO after midnight General Adult HPI - General Stated complaint: Infussion pt to be checked in er Time Seen by Provider: 03/23/19 15:40 - History of Present Illness HPI narrative: Sent in from [facility]. For approximately 10 days he has had an infected area on the back of his right thigh. Initially he thought it was shingles. 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 He saw his primary care doctor and was started on a medication for shingles, possibly acyclovir. He did not improve. He was seen today in follow-up and was sent to the emergency room. He denies fever. The area has gone from being pruritic to being painful. He denies drainage. He is diabetic. - Related Data Home Medications Medication Instructions Recorded Confirmed Methocarbamol [Methocarbamol 500mg 500 mg PO QID 07/17/17 03/23/19 Tablet] Omeprazole [Omeprazole 20mg 20 mg PO DAILY 07/17/17 03/23/19 Capsule] Oxycodone HCl [Oxycodone (IR) 30mg 30 mg PO Q6HP PRN 07/17/17 03/23/19 Tab] Umeclidinium Brm/Vilanterol Tr 1 each IH BID 07/17/17 03/23/19 [Anoro Ellipta 62.5-25 Mcg INH] Albuterol Sulfate [Albuterol 2.5 mg IH QID PRN 10/05/17 03/23/19 Sulfate 2.5mg/0.5ml Neb] Clopidogrel Bisulfate [Plavix 75mg 75 mg PO DAILY 03/23/18 03/23/19 Tab] Gabapentin [Gabapentin 800mg Tab] 800 mg PO QID 03/23/18 03/23/19 Montelukast Sodium [Montelukast 10 mg PO HS 03/23/18 03/23/19 10mg Tab] insulin human U-100 NPH-regulr 100 unit SQ TID ml 05/11/18 03/23/19 70-30 mix 100 unit/mL subcutaneous susp aspirin 81 mg tablet,delayed 81 mg PO DAILY 05/26/18 03/23/19 release furosemide 80 mg tablet 80 mg PO DAILY tab 07/14/18 03/23/19 Acyclovir [Acyclovir 800mg tab] 800 mg PO TID 03/23/19 03/23/19 Bisoprolol Fumarate [Bisoprolol 10 mg PO DAILY 03/23/19 03/23/19 10mg Tablet] Isosorbide Mononitrate [Imdur 30mg 30 mg PO DAILY 03/23/19 03/23/19 ER tablet] Levothyroxine Sodium 50 mcg PO DAILY 03/23/19 03/23/19 [Levothyroxine 50mcg (0.05mg) Tab] Lisinopril [Lisinopril 10mg Tab] 40 mg PO BID 03/23/19 03/23/19 Allergies Allergy/AdvReac Type Severity Reaction Status Date / Time No Known Allergies Allergy Verified 01/19/19 10:42 [facility] History - Hepatitis A Screen Attestation statement:: This patient has been screened for Hepatitis A risk factors. Medical History: Reports:: Asthma, Cardiomyopathy, Congestive Heart Failure, Congenital Heart Disease, Coronary Artery Disease, Diabetes Mellitus Type 2, Gastroesophageal Reflux Disease(GERD), Hyperlipidemia, Hypertension, Lung Disease, Renal Disease, Renal Insufficiency Denies:: Cancer, Diabetes Mellitus Type 1, Internal Pacemaker, MRSA, Seizures Other Medical History: Reports: Anemia, Arthritis, Other. Denies: Blood Tra nsfusion Reaction Comment: Dyspnea, Hypothyroid, Obesity Other Surgeries: Yes: Appendectomy, Cardiac Catheterization, Coronary Stent, Other. No: Pacemaker Amputation: No Fractures: No - Social History Smoking Status: Never smoker Tobacco Type: cigarettes Alcohol Intake: never Alcohol Intake Frequency:: other Substance Use Type: denies use Occupational Status: other Housing: house Household Members: spouse Family Hx:: Coronary Artery Disease, Heart Attack, Hyperlipidemia, Hypertension, Stroke ROS Obtained: Yes All systems reviewed & no additional complaints - Constitutional Constitutional: Denies fever(s) - Integumentary/Breasts Skin/Breast: Reports as per HPI Physical Exam - General General appearance: alert, in no apparent distress - Head Head exam: atraumatic, normocephalic - Eye Eye exam: Present: normal appearance - ENT ENT exam: Present: mucous membranes moist - Neck Neck exam: Present: normal inspection, trachea midline - Chest Chest inspection: Present: normal inspection, symmetric chest wall rise - Respiratory Respiratory exam: Present: normal lung sounds bilaterally. Absent: respiratory distress - Cardiovascular Cardiovascular exam: Present: regular rate - Abdominal Exam Abdominal exam: Present: soft - Extremities Exam Extremities exam: Present: normal capillary refill - Neurological Exam Neurological exam: Present: alert, oriented X3 - Psychiatric Psychiatric exam: Present: normal affect, normal mood - Skin Skin exam: Present: warm, dry - Other Other exam information: Approximately 20 cm diameter area of erythema, induration, and tenderness post erior proximal right thigh extending onto the buttock area. Centrally there appears to be a ruptured vesicle that was approximately 5 cm diameter. Drainage of clear fluid. No definite fluctuant areas palpated. Cannot express any pus.
[2019-03-23 15:58] LABS: Microscopic, Urine URINE MICROSCOPIC (MICROSCOPIC)
[2019-03-23 16:06] LABS: Appearance,Urine CLEAR (Clear); Bilirubin,Urine Negative (Negative); Blood, Urine TRACE-I (Negative); Color,Urine YELLOW (Yellow); Glucose,Urine (UA) 2+ (Negative); Ketones,Urine Negative (Negative); Leukocyte Esterase,Urine Negative (Negative); PH,Urine 5.5 (5.0-8.5); Protein,Urine Negative (Negative); Specific Gravity, Urine 1.015 (1.005-1.030)
[2019-03-23 16:15] LABS: Albumin/Globulin Ratio 0.6 (1.1-1.8); Anion Gap 11.4 mEq/L (5-15); Basophils % 0.1 % (0.1-2.0); Bilirubin,Total 0.8 mg/dL (0.2-1.0); Calcium 8.9 mg/dL (8.5-10.1); Eosinophils # 0.1 K/mm3 (0.0-0.4); Eosinophils % 0.7 % (0.1-12.0); Globulin 4.7 gm/dl (1.3-3.2); Hematocrit 36.2 % (42.0-52.0); Hemoglobin 11.7 g/dL (14.1-18.0); Lymphocytes # 0.8 K/mm3 (0.7-4.5); Lymphocytes % 4.8 % (10-50); Mean Corpuscular HGB Conc 32.2 g/dL (31.8-35.4); Mean Corpuscular Volume 85.3 fl (80-94); Mean Platelet Volume 8.7 fl (7.4-10.4); Monocytes % 6.1 % (1.7-9.3); Neutrophils # 14.4 K/mm3 (1.8-7.8); Neutrophils % 88.2 % (37.0-80.0); Platelet Count 307 K/mm3 (142-424); Red Blood Count 4.24 M/mm3 (4.60-6.20); Red Cell Distribution Width 16.6 % (11.5-17.5); Total Protein,Serum 7.7 gm/dL (6.4-8.2); White Blood Count 16.3 K/mm3 (4.8-10.8)
[2019-03-23 16:27] LABS: Bacteria,Urine Trace /lpf; RBC,Urine Occasional #/hpf (0-3); Squamous Epithelial Cell,Urine Occasional #/hpf (0-5); WBC,Urine Occasional #/hpf (0-3)
--- NOTE | 2019-03-23 16:33 | Pharmacy Consult Notes ---
- Pharmacy Consult Date: 03/23/19 Time: 16:31 Referring provider: DR. FORD Reason for Consult:: VANCOMYCIN DOSING Allergies and ADEs:: Allergies Allergy/AdvReac Type Severity Reaction Status Date / Time No Known Allergies Allergy Verified 01/19/19 10:42 Home Medications:: Home Medications Medication Instructions Recorded Confirmed Type Methocarbamol [Methocarbamol 500mg 500 mg PO QID 07/17/17 03/23/19 History Tablet] Omeprazole [Omeprazole 20mg 20 mg PO DAILY 07/17/17 03/23/19 History Capsule] Oxycodone HCl [Oxycodone (IR) 30mg 30 mg PO Q6HP PRN 07/17/17 03/23/19 History Tab] Umeclidinium Brm/Vilanterol Tr 1 each IH BID 07/17/17 03/23/19 History [Anoro Ellipta 62.5-25 Mcg INH] Albuterol Sulfate [Albuterol 2.5 mg IH QID PRN 10/05/17 03/23/19 History Sulfate 2.5mg/0.5ml Neb] Clopidogrel Bisulfate [Plavix 75mg 75 mg PO DAILY 03/23/18 03/23/19 History Tab] Gabapentin [Gabapentin 800mg Tab] 800 mg PO QID 03/23/18 03/23/19 History Montelukast Sodium [Montelukast 10 mg PO HS 03/23/18 03/23/19 History 10mg Tab] insulin human U-100 NPH-regulr 100 unit SQ TID ml 05/11/18 03/23/19 History 70-30 mix 100 unit/mL subcutaneous susp aspirin 81 mg tablet,delayed 81 mg PO DAILY 05/26/18 03/23/19 History release furosemide 80 mg tablet 80 mg PO DAILY tab 07/14/18 03/23/19 History Acyclovir [Acyclovir 800mg tab] 800 mg PO TID 03/23/19 03/23/19 History Bisoprolol Fumarate [Bisoprolol 10 mg PO DAILY 03/23/19 03/23/19 History 10mg Tablet] Isosorbide Mononitrate [Imdur 30mg 30 mg PO DAILY 03/23/19 03/23/19 History ER tablet] Levothyroxine Sodium 50 mcg PO DAILY 03/23/19 03/23/19 History [Levothyroxine 50mcg (0.05mg) Tab] Lisinopril [Lisinopril 10mg Tab] 40 mg PO BID 03/23/19 03/23/19 History Height: 1.73 m Weight: 129.727 kg Laboratory Results:: Laboratory Results - last 24 hr 03/23/19 15:42: WBC 16.3 H, RBC 4.24 L, Hgb 11.7 L, Hct 36.2 L, MCV 85.3, MCH 27.5, MCHC 32.2, RDW 16.6, Plt Count 307, MPV 8.7, Neut % (Auto) 88.2 H, Lymph % (Auto) 4.8 L, [place] % (Auto) 6.1, Eos % (Auto) 0.7, Baso % (Auto) 0.1, Neut # (Auto) 14.4 H, Lymph # (Auto) 0.8, [place] # (Auto) 1.0, Eos # (Auto) 0.1, Baso # (Auto) 0.0 03/23/19 15:42: Sodium 131 L, Potassium 4.4, Chloride 92 L, Carbon Dioxide 32, Anion Gap 11.4, BUN 21 H, Creatinine 1.92 H, Estimated Creat Clear 32, Estimated GFR 34 L, Est GFR ( Amer) 41 L, Glucose 110 H, Calcium 8.9, Total Bilirubin 0.8, AST 19, ALT 14, Alkaline Phosphatase 83, Total Protein 7.7, Albumin 3.0 L, Globulin 4.7 H, Albumin/Globulin Ratio 0.6 L 03/23/19 15:42: Lactate 1.4 03/23/19 15:42: Urine Color Yellow, Urine Appearance Clear, Urine pH 5.5, Ur Specific [place] 1.015, Urine Protein Negative, Urine Glucose (UA) 2+, Urine Ketones Negative, Urine Blood Trace-i, Urine Nitrate Negative, Urine Bilirubin Negative, Urine Urobilinogen 1.0, Ur Leukocyte Esterase Negative, Urine RBC Occasional, Urine WBC Occasional, Ur Squamous Epith Cells Occasional, Urine Bacteria Trace Medical History: Reports:: Asthma, Cardiomyopathy, Congestive Heart Failure, Congenital Heart Disease, Coronary Artery Disease, Diabetes Mellitus Type 1, Diabetes Mellitus Type 2, Gastroesophageal Reflux Disease(GERD), Hyperlipidemia, Hypertension, Lung Disease, Renal Disease, Renal Insufficiency Denies:: Cancer, Internal Pacemaker, MRSA, Seizures Assessment and Plan - Assessment and plan all Dx Assessment and Plan for all problems:: BASED ON PATIENT'S FACTORS, RECOMMEND STARTING WITH VANCOMYCIN 2 GM Q24H AT THIS TIME. PHARMACY WILL FOLLOW DAILY AND ADJUST APPROPRIATE. TOM COATES, SAMANTHAD
[2019-03-23 16:51] LABS: Eosinophils % 2 % (0-3); Lymphocytes % 3 % (10-50); Monocytes % 4 % (2-9); Neutrophils % 90 % (42-76); RBC Morphology Normal; Total Cells Counted 100
--- NOTE | 2019-03-23 18:25 | History & Physical Report ---
*Admission Date: 03/23/19 <Kyra Barahona 03/23/19 18:25> *Chief complaint: cellulitis <Kyra Barahona 03/23/19 18:25> *History of present illness: Mr. Ellsworth is a 78-year-old male with a history of diabetes mellitus, coronary artery disease, and hypertension who was sent in from the [facility]. For approximately 10 days he has had an infected area on the back of his right thigh. Initially he thought it was shingles. Initially he says it itched. He saw his primary care doctor and was started on a medication for shinglesr. He did not improve. He was seen today in follow-up and was sent to the emergency room. He denies fever. The area has gone from being pruritic to being painful. He denies drainage. He is diabetic. At the time of this assessment patient states that he has not been feeling well for 2 days. He has not been eating or drinking very well. Patient has known cardiac and kidney issues as well as his diabetes. He has followed in [place] for his kidneys and diabetes. He sees Dr. Pratt for his cardiac issues. <JunKyra 03/23/19 19:17> [facility] History Medical History: Reports:: Asthma, Cardiomyopathy, Congestive Heart Failure, Congenital Heart Disease, Coronary Artery Disease, Diabetes Mellitus Type 1, Diabetes Mellitus Type 2, Gastroesophageal Reflux Disease(GERD), Hyperlipidemia, Hypertension, Lung Disease, Renal Disease, Renal Insufficiency Denies:: Cancer, Internal Pacemaker, MRSA, Seizures <JunKyra 03/23/19 18:25> *Have you ever received a pneumonia vaccine?: No <Kyra Barahona 03/23/19 18:25> *Have you received a flu vaccine this season?: No <Kyra Barahona 03/23/19 18:25> Other Medical History: Reports: Anemia, Arthritis, Other. Denies: Blood Transfusion Reaction <Kyra Barahona 03/23/19 18:25> Other Surgeries: Yes: Appendectomy, Cardiac Catheterization, Coronary Stent, Other. No: Pacemaker <Kyra Barahona 03/23/19 18:25> Amputation: No <Kyra Barahona 03/23/19 18:25> Fractures: No <Kyra Barahona 03/23/19 18:25> - *Social History Smoking Status: Never smoker <Kyra Barahona 03/23/19 18:25> Tobacco Type: cigarettes <Kyra Barahona 03/23/19 18:25> Alcohol Intake: never <Kyra Barahona 03/23/19 18:25> Alcohol Intake Frequency:: other <Kyra Barahona 03/23/19 18:25> Substance Use Type: denies use <Kyra Barahona 03/23/19 18:25> *Occupational Status:: other <Kyra Barahona 03/23/19 18:25> Housing: house <Kyra Barahona 03/23/19 18:25> Household Members: spouse <Kyra Barahona 03/23/19 18:25> *Travel in the last 8 weeks: None <Kyra Barahona 03/23/19 18:25> Family Hx:: Coronary Artery Disease, Heart Attack, Hyperlipidemia, Hypertension, Stroke <Kyra Barahona 03/23/19 18:25> Review of Systems - Constitutional Denies fever(s), Denies headache(s) <Kyra Barahona 03/23/19 19:17> - Eyes Denies change in vision <Kyra Barahona 03/23/19 19:17> - ENT Denies ear pain, Denies sore throat <Kyra Barahona 03/23/19 19:17> - *Cardiovascular Reports leg swelling, Denies chest pain, Denies shortness of breath <Kyra Barahona 03/23/19 19:17> - *Respiratory Reports shortness of breath (Wears oxygen continuously at home), Denies chest congestion, Denies cough <Kyra Barahona 03/23/19 19:17> Comments: Wears oxygen per nasal cannula continuously at home <Kyra Barahona 03/23/19 19:24> - *Gastrointestinal Denies abdominal pain, Denies change in bowel habits, Denies constipation, Denies loose stools, Denies nausea, Denies vomiting <Kyra Barahona 03/23/19 19:17> - *Genitourinary Comments: Voided frequently all night last night. <Kyra Barahona 03/23/19 19:17> - *Musculoskeletal Reports joint pain <Kyra Barahona - 03/23/19 19:17> - *Neurologic Denies seizure-like activity, Denies dizziness, Denies headache(s) <Barahona,Kyra - 03/23/19 19:17> Meds Home Medications Medication Instructions Recorded Confirmed Type Methocarbamol [Methocarbamol 500mg 500 mg PO QID 07/17/17 03/23/19 History Tablet] Omeprazole [Omeprazole 20mg 20 mg PO DAILY 07/17/17 03/23/19 History Capsule] Oxycodone HCl [Oxycodone (IR) 30mg 30 mg PO Q6HP PRN 07/17/17 03/23/19 History Tab] Umeclidinium Brm/Vilanterol Tr 1 each IH BID 07/17/17 03/23/19 History [Anoro Ellipta 62.5-25 Mcg INH] Albuterol Sulfate [Albuterol 2.5 mg IH QID PRN 10/05/17 03/23/19 History Sulfate 2.5mg/0.5ml Neb] Clopidogrel Bisulfate [Plavix 75mg 75 mg PO DAILY 03/23/18 03/23/19 History Tab] Gabapentin [Gabapentin 800mg Tab] 800 mg PO QID 03/23/18 03/23/19 History Montelukast Sodium [Montelukast 10 mg PO HS 03/23/18 03/23/19 History 10mg Tab] insulin human U-100 NPH-regulr 100 unit SQ TID ml 05/11/18 03/23/19 History 70-30 mix 100 unit/mL subcutaneous susp aspirin 81 mg tablet,delayed 81 mg PO DAILY 05/26/18 03/23/19 History release furosemide 80 mg tablet 80 mg PO DAILY tab 07/14/18 03/23/19 History Bisoprolol Fumarate [Bisoprolol 10 mg PO DAILY 03/23/19 03/23/19 History 10mg Tablet] Ferrous Sulfate [Iron] 325 mg PO BID 03/23/19 03/23/19 History Isosorbide Mononitrate [Imdur 30mg 30 mg PO DAILY 03/23/19 03/23/19 History ER tablet] Levothyroxine Sodium 50 mcg PO DAILY 03/23/19 03/23/19 History [Levothyroxine 50mcg (0.05mg) Tab] Lisinopril [Lisinopril 10mg Tab] 40 mg PO BID 03/23/19 03/23/19 History Potassium Chloride 20 meq PO DAILY 03/23/19 03/23/19 History Pravastatin Sodium [Pravachol 20mg 20 mg PO HS 03/23/19 03/23/19 History Tablet] <Raymond Baig - 03/23/19 21:51> Allergies Allergy/AdvReac Type Severity Reaction Status Date / Time morphine AdvReac Verified 03/23/19 19:27 <Raymond Baig Rogerio - 03/23/19 21:51> Exam Vital signs and Labs for Last 24 Hours: Temp Pulse Resp BP Pulse Ox 101.9 F H 88 17 111/60 89 L 03/23/19 20:00 03/23/19 20:00 03/23/19 20:00 03/23/19 20:00 03/23/19 20:00 Laboratory Results - last 24 hr 03/23/19 15:42: WBC 16.3 H, RBC 4.24 L, Hgb 11.7 L, Hct 36.2 L, MCV 85.3, MCH 27.5, MCHC 32.2, RDW 16.6, Plt Count 307, MPV 8.7, Neut % (Auto) 88.2 H, Lymph % (Auto) 4.8 L, [place] % (Auto) 6.1, Eos % (Auto) 0.7, Baso % (Auto) 0.1, Neut # (Auto) 14.4 H, Lymph # (Auto) 0.8, [place] # (Auto) 1.0, Eos # (Auto) 0.1, Baso # (Auto) 0.0, Total Counted 100, Neutrophils % (Manual) 90 H, Lymphocytes % (Manual) 3 L, Monocytes % (Manual) 4, Eosinophils % (Manual) 2, Metamyelocytes % 1.0, Platelet Estimate Normal, RBC Morphology Normal 03/23/19 15:42: Sodium 131 L, Potassium 4.4, Chloride 92 L, Carbon Dioxide 32, Anion Gap 11.4, BUN 21 H, Creatinine 1.92 H, Estimated Creat Clear 32, Estimated GFR 34 L, Est GFR ( Amer) 41 L, Glucose 110 H, Calcium 8.9, Total Bilirubin 0.8, AST 19, ALT 14, Alkaline Phosphatase 83, Total Protein 7.7, Albumin 3.0 L, Globulin 4.7 H, Albumin/Globulin Ratio 0.6 L 03/23/19 15:42: Lactate 1.4 03/23/19 15:42: Urine Color Yellow, Urine Appearance Clear, Urine pH 5.5, Ur Specific [place] 1.015, Urine Protein Negative, Urine Glucose (UA) 2+, Urine Ketones Negative, Urine Blood Trace-i, Urine Nitrate Negative, Urine Bilirubin Negative, Urine Urobilinogen 1.0, Ur Leukocyte Esterase Negative, Urine RBC Occasional, Urine WBC Occasional, Ur Squamous Epith Cells Occasional, Urine Bacteria Trace <Raymond Baig - 03/23/19 21:51> Temp Pulse Resp BP Pulse Ox 98.7 F 90 18 165/75 H 90 L 03/23/19 15:30 03/23/19 17:30 03/23/19 17:30 03/23/19 17:30 03/23/19 17:30 Laboratory Results - last 24 hr 03/23/19 15:42: WBC 16.3 H, RBC 4.24 L, Hgb 11.7 L, Hct 36.2 L, MCV 85.3, MCH 27.5, MCHC 32.2, RDW 16.6, Plt Count 307, MPV 8.7, Neut % (Auto) 88.2 H, Lymph % (Auto) 4.8 L, [place] % (Auto) 6.1, Eos % (Auto) 0.7, Baso % (Auto) 0.1, Neut # (Auto) 14.4 H, Lymph # (Auto) 0.8, [place] # (Auto) 1.0, Eos # (Auto) 0.1, Baso # (Auto) 0.0, Total Counted 100, Neutrophils % (Manual) 90 H, Lymphocytes % (Manual) 3 L, Monocytes % (Manual) 4, Eosinophils % (Manual) 2, Metamyelocytes % 1.0, Platelet Estimate Normal, RBC Morphology Normal 03/23/19 15:42: Sodium 131 L, Potassium 4.4, Chloride 92 L, Carbon Dioxide 32, Anion Gap 11.4, BUN 21 H, Creatinine 1.92 H, Estimated Creat Clear 32, Estimated GFR 34 L, Est GFR ( Amer) 41 L, Glucose 110 H, Calcium 8.9, Total Bilirubin 0.8, AST 19, ALT 14, Alkaline Phosphatase 83, Total Protein 7.7, Albumin 3.0 L, Globulin 4.7 H, Albumin/Globulin Ratio 0.6 L 03/23/19 15:42: Lactate 1.4 03/23/19 15:42: Urine Color Yellow, Urine Appearance Clear, Urine pH 5.5, Ur Specific [place] 1.015, Urine Protein Negative, Urine Glucose (UA) 2+, Urine Ketones Negative, Urine Blood Trace-i, Urine Nitrate Negative, Urine Bilirubin Negative, Urine Urobilinogen 1.0, Ur Leukocyte Esterase Negative, Urine RBC Occasional, Urine WBC Occasional, Ur Squamous Epith Cells Occasional, Urine Bacteria Trace <Kyra Barahona 03/23/19 18:25> I & O for Last 24 hours: Intake & Output 03/21/19 03/22/19 03/23/19 03/24/19 11:59 11:59 11:59 11:59 Weight 295 lb 1 oz <Raymond Baig - 03/23/19 21:51> Intake & Output 03/21/19 03/22/19 03/23/19 03/24/19 11:59 11:59 11:59 11:59 Weight 286 lb <Kyra Barahona 03/23/19 18:25> - Constitutional no acute distress, morbidly obese <JunKyra 03/23/19 19:24> - *Routine HEENT Exam Head: Present: normocephalic, atraumatic <JunKyra 03/23/19 19:24> Eye: Present: PERRL. Absent: conjunctival icterus, scleral injection, conjunctivae pink <BarahonaKyra 03/23/19 19:24> ENT: Present: mucous membranes dry, oropharynx clear <BarahonaKyra 03/23/19 19:24> - *Routine Neck Exam Present: supple. Absent: carotid bruit, lymphadenopathy, thyromegaly <JunKyra [place] 03/23/19 19:24> - *Routine Respiratory Exam Present: CTA bilaterally (Anteriorly and posteriorly) <Kyra Barahona 03/23/19 19:24> - *Routine Cardiovascular Exam Present: RRR <Kyra Barahona 03/23/19 19:24> - *Routine Abdominal Exam Present: normoactive bowel sounds. Absent: tenderness <Kyra Barahona 03/23/19 19:24> Comments: Obese <Kyra Barahona 03/23/19 19:24> - *Routine Extremities Exam Comments: Lower bilateral legs with elephant like skin and edematous. Right posterior thigh with 10 to 12 cm of erythema with a 3 to 4 cm open center <Kyra Barahona 03/23/19 19:24> - *Routine Neurological Exam Present: alert, oriented X3 <Kyra Barahona 03/23/19 19:24> Assessment and Plan (1) Abscess of right thigh Current visit: Yes Status: Acute Category: Medical Code(s): L02.415 - Cutaneous abscess of right lower limb (2) Cellulitis of right thigh Current visit: Yes Status: Acute Category: Medical Code(s): L03.115 - Cellulitis of right lower limb (3) Chronic kidney disease, stage 3 Current visit: No Status: Chronic Category: Medical Code(s): N18.3 - Chronic kidney disease, stage 3 (moderate) (4) Chronic systolic (congestive) heart failure Current visit: No Status: Chronic Category: Medical Code(s): I50.22 - Chronic systolic (congestive) heart failure (5) 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 extremities Current visit: No Status: Chronic Category: Medical Code(s): I87.2 - Venous insufficiency (chronic) (peripheral) (6) Eleph[place]asis Current visit: No Status: Chronic Category: Medical Code(s): I89.0 - Lymphedema, not elsewhere classified (7) Morbid obesity Current visit: No Status: Chronic Category: Medical Code(s): E66.01 - Morbid (severe) obesity due to excess calories (8) Type 2 diabetes mellitus Current visit: No Status: Chronic Category: Medical Code(s): E11.9 - Type 2 diabetes mellitus without complications (9) CAD (coronary artery disease) Current visit: No Status: Chronic Qualifiers: Coronary Disease-Associated Artery/Lesion type: [place] artery [place] vs. transplanted heart: [place] heart Associated angina: with other forms of angina Qualified Code(s): I25.118 - Atherosclerotic heart disease of [place] coronary artery with other forms of angina pectoris Category: Medical Code(s): I25.10 - Atherosclerotic heart disease of [place] coronary artery without angina pectoris <Raymond Baig - 03/23/19 21:51> (1) Abscess of right thigh Current visit: Yes Status: Acute Category: Medical Code(s): L02.415 - Cutaneous abscess of right lower limb (2) Cellulitis of right thigh Current visit: Yes Status: Acute Category: Medical Code(s): L03.115 - Cellulitis of right lower limb (3) Chronic kidney disease, stage 3 Current visit: No Status: Chronic Category: Medical Code(s): N18.3 - Chronic kidney disease, stage 3 (moderate) (4) Chronic systolic (congestive) heart failure Current visit: No Status: Chronic Category: Medical Code(s): I50.22 - Chronic systolic (congestive) heart failure (5) 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 extremities Current visit: No Status: Chronic Category: Medical Code(s): I87.2 - Venous insufficiency (chronic) (peripheral) (6) Ele[place]asis Current visit: No Status: Chronic Category: Medical Code(s): I89.0 - Lymphedema, not elsewhere classified (7) Morbid obesity Current visit: No Status: Chronic Category: Medical Code(s): E66.01 - Morbid (severe) obesity due to excess calories (8) Type 2 diabetes mellitus Current visit: No Status: Chronic Category: Medical Code(s): E11.9 - Type 2 diabetes mellitus without complications (9) CAD (coronary artery disease) Current visit: No Status: Chronic Qualifiers: Coronary Disease-Associated Artery/Lesion type: [place] artery [place] vs. transplanted heart: [place] heart Associated angina: with other forms of angina Qualified Code(s): I25.118 - Atherosclerotic heart disease of [place] coronary artery with other forms of angina pectoris Category: Medical Code(s): I25.10 - Atherosclerotic heart disease of [place] coronary artery without angina pectoris <Kyra Barahona - 03/23/19 19:19> - Assessment and plan all Dx Assessment and Plan for all problems:: Concur with assessment and plan as outlined above. <Raymond Baig Rogerio - 03/23/19 21:51> Patient has been admitted to acute care and started on IV antibiotics. Home meds have been initiated. He has been seen by the surgeon with plans for I&D in the a.m. according to the family. <Kyra Barahona - 03/23/19 19:24>
[2019-03-24 06:57] LABS: Basophils % 0.2 % (0.1-2.0); Eosinophils # 0.1 K/mm3 (0.0-0.4); Eosinophils % 0.6 % (0.1-12.0); Hematocrit 34.1 % (42.0-52.0); Lymphocytes # 1.1 K/mm3 (0.7-4.5); Mean Corpuscular HGB Conc 29.5 g/dL (31.8-35.4); Mean Corpuscular Volume 86.5 fl (80-94); Mean Platelet Volume 8.2 fl (7.4-10.4); Monocytes # 0.8 K/mm3 (0.1-1.0); Monocytes % 6.2 % (1.7-9.3); Neutrophils # 10.7 K/mm3 (1.8-7.8); Platelet Count 276 K/mm3 (142-424); Red Blood Count 3.94 M/mm3 (4.60-6.20); Red Cell Distribution Width 17.8 % (11.5-17.5); White Blood Count 12.8 K/mm3 (4.8-10.8)
[2019-03-24 07:10] LABS: Anion Gap 9.8 mEq/L (5-15); Calcium 8.3 mg/dL (8.5-10.1)
[2019-03-24 07:11] LABS: Hemoglobin 10.1 g/dL (14.1-18.0)
--- NOTE | 2019-03-24 07:11 | Consult Report ---
*Admission Date: 03/23/19 *Reason for consult:: "Cellulitis right thigh" *History of present illness: Patient is a 78-year-old white male from [place] with history of coronary artery disease with prior stenting, cardiomyopathy, hypertension, diabetes, congestive heart failure, renal insufficiency, with a BMI of 45. He states that about 10 days ago on the right posterior lateral thigh he had a small area which was initially felt to be possible shingles. He was treated for shingles in the [place] [facility]. However, he presented yesterday with worsening symptoms. He was found to have evidence of soft tissue infection and was referred to [facility] emergency department where he was seen and evaluated. Patient was found to have an area of extensive reddening and induration. He was a dmitted for inpatient management and started on intravenous antibiotics and surgical consultation. Review of Systems - Review of Systems Review of systems:: pertinent systems reviewed and negative unless documented below - *Neurologic Denies seizure-like activity, Denies dizziness, Denies headache(s) [facility] History Medical History: Reports:: Asthma, Cardiomyopathy, Congestive Heart Failure, Congenital Heart Disease, Coronary Artery Disease, Diabetes Mellitus Type 2, Gastroesophageal Reflux Disease(GERD), Hyperlipidemia, Hypertension, Lung Disease, MRSA, Renal Disease, Renal Insufficiency Denies:: Cancer, Diabetes Mellitus Type 1, Internal Pacemaker, Seizures *Have you ever received a pneumonia vaccine?: Yes *Have you received a flu vaccine this season?: No Other Medical History: Reports: Anemia, Arthritis, Hypothyroidism, Other. Denies: Blood Transfusion Reaction Other Surgeries: Yes: Appendectomy, Cardiac Catheterization, Coronary Stent, Other. No: Pacemaker Amputation: No Fractures: No - *Social History Smoking Status: Never smoker Tobacco Type: cigarettes Alcohol Intake: never Alcohol Intake Frequency:: other Substance Use Type: denies use *Occupational Status:: retired Housing: house Household Members: spouse *Travel in the last 8 weeks: Inside the [place] Family Hx:: Coronary Artery Disease, Heart Attack, Hyperlipidemia, Hypertension, Stroke Meds Home Medications Medication Instructions Recorded Confirmed Type Methocarbamol [Methocarbamol 500mg 500 mg PO QID 07/17/17 03/23/19 History Tablet] Omeprazole [Omeprazole 20mg 20 mg PO DAILY 07/17/17 03/23/19 History Capsule] Oxycodone HCl [Oxycodone (IR) 30mg 30 mg PO Q6HP PRN 07/17/17 03/23/19 History Tab] Umeclidinium Brm/Vilanterol Tr 1 each IH BID 07/17/17 03/23/19 History [Anoro Ellipta 62.5-25 Mcg INH] Albuterol Sulfate [Albuterol 2.5 mg IH QID PRN 10/05/17 03/23/19 History Sulfate 2.5mg/0.5ml Neb] Clopidogrel Bisulfate [Plavix 75mg 75 mg PO DAILY 03/23/18 03/23/19 History Tab] Gabapentin [Gabapentin 800mg Tab] 800 mg PO QID 03/23/18 03/23/19 History Montelukast Sodium [Montelukast 10 mg PO HS 03/23/18 03/23/19 History 10mg Tab] insulin human U-100 NPH-regulr 100 unit SQ TID ml 05/11/18 03/23/19 History 70-30 mix 100 unit/mL subcutaneous susp aspirin 81 mg tablet,delayed 81 mg PO DAILY 05/26/18 03/23/19 History release furosemide 80 mg tablet 80 mg PO DAILY tab 07/14/18 03/23/19 History Bisoprolol Fumarate [Bisoprolol 10 mg PO DAILY 03/23/19 03/23/19 History 10mg Tablet] Ferrous Sulfate [Iron] 325 mg PO BID 03/23/19 03/23/19 History Isosorbide Mononitrate [Imdur 30mg 30 mg PO DAILY 03/23/19 03/23/19 History ER tablet] Levothyroxine Sodium 50 mcg PO DAILY 03/23/19 03/23/19 History [Levothyroxine 50mcg (0.05mg) Tab] Lisinopril [Lisinopril 10mg Tab] 40 mg PO BID 03/23/19 03/23/19 History Potassium Chloride 20 meq PO DAILY 03/23/19 03/23/19 History Pravastatin Sodium [Pravachol 20mg 20 mg PO HS 03/23/19 03/23/19 History Tablet] Albuterol Sulfate [Albuterol HFA 2 puffs INHALATION BID 03/24/19 03/24/19 History Inhaler] Allergies Allergy/AdvReac Type Severity Reaction Status Date / Time morphine AdvReac Verified 03/23/19 19:27 Exam Vital signs and Labs for Last 24 Hours: Temp Pulse Resp BP Pulse Ox 98.9 F 72 18 104/52 L 91 L 03/24/19 04:00 03/24/19 04:00 03/24/19 04:00 03/24/19 04:00 03/24/19 04:00 Laboratory Results - last 24 hr 03/23/19 15:42: WBC 16.3 H, RBC 4.24 L, Hgb 11.7 L, Hct 36.2 L, MCV 85.3, MCH 27.5, MCHC 32.2, RDW 16.6, Plt Count 307, MPV 8.7, Neut % (Auto) 88.2 H, Lymph % (Auto) 4.8 L, [place] % (Auto) 6.1, Eos % (Auto) 0.7, Baso % (Auto) 0.1, Neut # (Auto) 14.4 H, Lymph # (Auto) 0.8, [place] # (Auto) 1.0, Eos # (Auto) 0.1, Baso # (Auto) 0.0, Total Counted 100, Neutrophils % (Manual) 90 H, Lymphocytes % (Manual) 3 L, Monocytes % (Manual) 4, Eosinophils % (Manual) 2, Metamyelocytes % 1.0, Platelet Estimate Normal, RBC Morphology Normal 03/23/19 15:42: Sodium 131 L, Potassium 4.4, Chloride 92 L, Carbon Dioxide 32, Anion Gap 11.4, BUN 21 H, Creatinine 1.92 H, Estimated Creat Clear 32, Estimated GFR 34 L, Est GFR ( Amer) 41 L, Glucose 110 H, Calcium 8.9, Total Bilirubin 0.8, AST 19, ALT 14, Alkaline Phosphatase 83, Total Protein 7.7, Albumin 3.0 L, Globulin 4.7 H, Albumin/Globulin Ratio 0.6 L 03/23/19 15:42: Lactate 1.4 03/23/19 15:42: Urine Color Yellow, Urine Appearance Clear, Urine pH 5.5, Ur Specific [place] 1.015, Urine Protein Negative, Urine Glucose (UA) 2+, Urine Ketones Negative, Urine Blood Trace-i, Urine Nitrate Negative, Urine Bilirubin Negative, Urine Urobilinogen 1.0, Ur Leukocyte Esterase Negative, Urine RBC Occasional, Urine WBC Occasional, Ur Squamous Epith Cells Occasional, Urine Bacteria Trace 03/23/19 21:58: POC Glucose 206 H 03/24/19 06:15: WBC 12.8 H, RBC 3.94 L, Hct 34.1 L, MCV 86.5, MCH 25.5 L, MCHC 29.5 L, RDW 17.8 H, Plt Count 276, MPV 8.2, Neut % (Auto) 84.0 H, Lymph % (Auto) 9.0 L, [place] % (Auto) 6.2, Eos % (Auto) 0.6, Baso % (Auto) 0.2, Neut # (Auto) 10.7 H, Lymph # (Auto) 1.1, [place] # (Auto) 0.8, Eos # (Auto) 0.1, Baso # (Auto) 0.0 03/24/19 06:51: POC Glucose 257 H I & O for Last 24 hours: Intake & Output 03/21/19 03/22/19 03/23/19 03/24/19 11:59 11:59 11:59 11:59 Intake Total 690 / 690 Balance 690 / 690 Weight 293 lb 8 oz Narrative: Patient had no acute distress. Focal examination of the right thigh reveals an extensive area of erythema on the right posterior lateral thigh. This measures approximately 20 cm of erythema. There is significant central induration. There is evidence of some superficial sloughing of the epidermis and multiple draining pustules consistent with at least a necrotizing cellulitis. Results - Labs 03/24/19 06:15 03/23/19 15:42 Laboratory Results - last 24 hr 03/23/19 15:42: WBC 16.3 H, RBC 4.24 L, Hgb 11.7 L, Hct 36.2 L, MCV 85.3, MCH 27.5, MCHC 32.2, RDW 16.6, Plt Count 307, MPV 8.7, Neut % (Auto) 88.2 H, Lymph % (Auto) 4.8 L, [place] % (Auto) 6.1, Eos % (Auto) 0.7, Baso % (Auto) 0.1, Neut # (Auto) 14.4 H, Lymph # (Auto) 0.8, [place] # (Auto) 1.0, Eos # (Auto) 0.1, Baso # (Auto) 0.0, Total Counted 100, Neutrophils % (Manual) 90 H, Lymphocytes % (Manual) 3 L, Monocytes % (Manual) 4, Eosinophils % (Manual) 2, Metamyelocytes % 1.0, Platelet Estimate Normal, RBC Morphology Normal 03/23/19 15:42: Sodium 131 L, Potassium 4.4, Chloride 92 L, Carbon Dioxide 32, Anion Gap 11.4, BUN 21 H, Creatinine 1.92 H, Estimated Creat Clear 32, Estimated GFR 34 L, Est GFR ( Amer) 41 L, Glucose 110 H, Calcium 8.9, Total Bilirubin 0.8, AST 19, ALT 14, Alkaline Phosphatase 83, Total Protein 7.7, Albumin 3.0 L, Globulin 4.7 H, Albumin/Globulin Ratio 0.6 L 03/23/19 15:42: Lactate 1.4 03/23/19 15:42: Urine Color Yellow, Urine Appearance Clear, Urine pH 5.5, Ur Sp ecific [place] 1.015, Urine Protein Negative, Urine Glucose (UA) 2+, Urine Ketones Negative, Urine Blood Trace-i, Urine Nitrate Negative, Urine Bilirubin Negative, Urine Urobilinogen 1.0, Ur Leukocyte Esterase Negative, Urine RBC Occasional, Urine WBC Occasional, Ur Squamous Epith Cells Occasional, Urine Bacteria Trace 03/23/19 21:58: POC Glucose 206 H 03/24/19 06:15: WBC 12.8 H, RBC 3.94 L, Hct 34.1 L, MCV 86.5, MCH 25.5 L, MCHC 29.5 L, RDW 17.8 H, Plt Count 276, MPV 8.2, Neut % (Auto) 84.0 H, Lymph % (Auto) 9.0 L, [place] % (Auto) 6.2, Eos % (Auto) 0.6, Baso % (Auto) 0.2, Neut # (Auto) 10.7 H, Lymph # (Auto) 1.1, [place] # (Auto) 0.8, Eos # (Auto) 0.1, Baso # (Auto) 0.0 03/24/19 06:51: POC Glucose 257 H Assessment and Plan (1) Abscess of right thigh Current visit: Yes Status: Acute Category: Medical Code(s): L02.415 - Cutaneous abscess of right lower limb Patient has evidence of appreciable soft tissue infection of the right lateral posterior thigh. This may be a focal necrotizing cellulitis. Recommend urgent incision and drainage and debridement. This is to be arranged. (2) Cellulitis of right thigh Current visit: Yes Status: Acute Category: Medical Code(s): L03.115 - [place] lulitis of right lower limb (3) Chronic kidney disease, stage 3 Current visit: No Status: Chronic Category: Medical Code(s): N18.3 - Chronic kidney disease, stage 3 (moderate) (4) Chronic systolic (congestive) heart failure Current visit: No Status: Chronic Category: Medical Code(s): I50.22 - Chronic systolic (congestive) heart failure (5) 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 extremities Current visit: No Status: Chronic Category: Medical Code(s): I87.2 - Venous insufficiency (chronic) (peripheral) (6) Eleph[place]asis Current visit: No Status: Chronic Category: Medical Code(s): I89.0 - Lymphedema, not elsewhere classified (7) Morbid obesity Current visit: No Status: Chronic Category: Medical Code(s): E66.01 - Morbid (severe) obesity due to excess calories (8) Type 2 diabetes mellitus Current visit: No Status: Chronic Category: Medical Code(s): E11.9 - Type 2 diabetes mellitus without complications (9) CAD (coronary artery disease) Current visit: No Status: Chronic Qualifiers: Coronary Disease-Associated Artery/Lesion type: [place] artery [place] vs. transplanted heart: [place] heart Associated angina: with other forms of angina Qualified Code(s): I25.118 - Atherosclerotic heart disease of [place] coronary artery with other forms of angina pectoris Category: Medical Code(s): I25.10 - Atherosclerotic heart disease of [place] coronary artery without angina pectoris
--- NOTE | 2019-03-24 08:24 | Progress Note ---
[facility] Anesthesia Checklist - Patient Identification Patient Identification: Arm Band - Structural Data Admitted From: Home Planned Operative Procedure/s: I&D right thigh Consent for Planned Operative Procedure(s) Verified: Yes Verified Documents: Surgical Consent, History and Physical - NPO Status Verified Time NPO: 00:00 - Additional verifications Anesthesia Reactions: No Hx Blood Transfusions: No Blood Transfusion Reaction: No - Airway Assessment C-Spine Mobility Assessed: Yes TMJ Mobility Assessed: Yes Dentition: Poor Dentition (risks of dental damage explained d/t poor dentition) - Neurological Assessment Level of Consciousness: Awake, Alert - Anesthesia Plan Anesthesia Risk discussed: Yes Anesthesia Plan: Verified ASA Class: III Anesthesia Type: General [facility] History I have reviewed the patient's past medical history: Yes Medical History: Reports:: Asthma, Cardiomyopathy, Congestive Heart Failure, Congenital Heart Disease, Coronary Artery Disease, Diabetes Mellitus Type 2, Gastroesophageal Reflux Disease(GERD), Hyperlipidemia, Hypertension, Lung Disease, MRSA, Renal Disease, Renal Insufficiency Denies:: Cancer, Diabetes Mellitus Type 1, Internal Pacemaker, Seizures *Have you ever received a pneumonia vaccine?: Yes *Have you received a flu vaccine this season?: No Other Medical History: Reports: Anemia, Arthritis, Hypothyroidism, Other. Denies: Blood Transfusion Reaction Anesthesia experience/problems:: nac Other Surgeries: Yes: Appendectomy, Cardiac Catheterization, Coronary Stent, Other. No: Pacemaker Amputation: No Fractures: No - *Social History Smoking Status: Never smoker Tobacco Type: cigarettes Alcohol Intake: never Alcohol Intake Frequency:: other Substance Use Type: denies use *Occupational Status:: retired Housing: house Household Members: spouse *Travel in the last 8 weeks: Inside the [facility] Family Hx:: Coronary Artery Disease, Heart Attack, Hyperlipidemia, Hypertension, Stroke
--- NOTE | 2019-03-24 08:26 | Pharmacy Consult Notes ---
- Pharmacy Consult Date: 03/24/19 Time: 08:25 Referring provider: DR. ECHEVARRIA Reason for Consult:: VANCOMYCIN DOSING Allergies and ADEs:: Allergies Allergy/AdvReac Type Severity Reaction Status Date / Time morphine AdvReac Verified 03/23/19 19:27 Home Medications:: Home Medications Medication Instructions Recorded Confirmed Type Methocarbamol [Methocarbamol 500mg 500 mg PO QID 07/17/17 03/23/19 History Tablet] Omeprazole [Omeprazole 20mg 20 mg PO DAILY 07/17/17 03/23/19 History Capsule] Oxycodone HCl [Oxycodone (IR) 30mg 30 mg PO Q6HP PRN 07/17/17 03/23/19 History Tab] Umeclidinium Brm/Vilanterol Tr 1 each IH BID 07/17/17 03/23/19 History [Anoro Ellipta 62.5-25 Mcg INH] Albuterol Sulfate [Albuterol 2.5 mg IH QID PRN 10/05/17 03/23/19 History Sulfate 2.5mg/0.5ml Neb] Clopidogrel Bisulfate [Plavix 75mg 75 mg PO DAILY 03/23/18 03/23/19 History Tab] Gabapentin [Gabapentin 800mg Tab] 800 mg PO QID 03/23/18 03/23/19 History Montelukast Sodium [Montelukast 10 mg PO HS 03/23/18 03/23/19 History 10mg Tab] insulin human U-100 NPH-regulr 100 unit SQ TID ml 05/11/18 03/23/19 History 70-30 mix 100 unit/mL subcutaneous susp aspirin 81 mg tablet,delayed 81 mg PO DAILY 05/26/18 03/23/19 History release furosemide 80 mg tablet 80 mg PO DAILY tab 07/14/18 03/23/19 History Bisoprolol Fumarate [Bisoprolol 10 mg PO DAILY 03/23/19 03/23/19 History 10mg Tablet] Ferrous Sulfate [Iron] 325 mg PO BID 03/23/19 03/23/19 History Isosorbide Mononitrate [Imdur 30mg 30 mg PO DAILY 03/23/19 03/23/19 History ER tablet] Levothyroxine Sodium 50 mcg PO DAILY 03/23/19 03/23/19 History [Levothyroxine 50mcg (0.05mg) Tab] Lisinopril [Lisinopril 10mg Tab] 40 mg PO BID 03/23/19 03/23/19 History Potassium Chloride 20 meq PO DAILY 03/23/19 03/23/19 History Pravastatin Sodium [Pravachol 20mg 20 mg PO HS 03/23/19 03/23/19 History Tablet] Albuterol Sulfate [Albuterol HFA 2 puffs INHALATION BID 03/24/19 03/24/19 History Inhaler] Height: 1.73 m Weight: 133.129 kg Laboratory Results:: Laboratory Results - last 24 hr 03/23/19 15:42: WBC 16.3 H, RBC 4.24 L, Hgb 11.7 L, Hct 36.2 L, MCV 85.3, MCH 27.5, MCHC 32.2, RDW 16.6, Plt Count 307, MPV 8.7, Neut % (Auto) 88.2 H, Lymph % (Auto) 4.8 L, [place] % (Auto) 6.1, Eos % (Auto) 0.7, Baso % (Auto) 0.1, Neut # (Auto) 14.4 H, Lymph # (Auto) 0.8, [place] # (Auto) 1.0, Eos # (Auto) 0.1, Baso # (Auto) 0.0, Total Counted 100, Neutrophils % (Manual) 90 H, Lymphocytes % (Manual) 3 L, Monocytes % (Manual) 4, Eosinophils % (Manual) 2, Metamyelocytes % 1.0, Platelet Estimate Normal, RBC Morphology Normal 03/23/19 15:42: Sodium 131 L, Potassium 4.4, Chloride 92 L, Carbon Dioxide 32, Anion Gap 11.4, BUN 21 H, Creatinine 1.92 H, Estimated Creat Clear 32, Estimated GFR 34 L, Est GFR ( Amer) 41 L, Glucose 110 H, Calcium 8.9, Total Bilirubin 0.8, AST 19, ALT 14, Alkaline Phosphatase 83, Total Protein 7.7, Albumin 3.0 L, Globulin 4.7 H, Albumin/Globulin Ratio 0.6 L 03/23/19 15:42: Lactate 1.4 03/23/19 15:42: Urine Color Yellow, Urine Appearance Clear, Urine pH 5.5, Ur Specific [place] 1.015, Urine Protein Negative, Urine Glucose (UA) 2+, Urine Ketones Negative, Urine Blood Trace-i, Urine Nitrate Negative, Urine Bilirubin Negative, Urine Urobilinogen 1.0, Ur Leukocyte Esterase Negative, Urine RBC Occasional, Urine WBC Occasional, Ur Squamous Epith Cells Occasional, Urine Bacteria Trace 03/23/19 21:58: POC Glucose 206 H 03/24/19 06:15: WBC 12.8 H, RBC 3.94 L, Hgb 10.1 L D, Hct 34.1 L, MCV 86.5, MCH 25.5 L, MCHC 29.5 L, RDW 17.8 H, Plt Count 276, MPV 8.2, Neut % (Auto) 84.0 H, Lymph % (Auto) 9.0 L, [place] % (Auto) 6.2, Eos % (Auto) 0.6, Baso % (Auto) 0.2, Neut # (Auto) 10.7 H, Lymph # (Auto) 1.1, [place] # (Auto) 0.8, Eos # (Auto) 0.1, Baso # (Auto) 0.0 03/24/19 06:15: Sodium 132 L, Potassium 3.8, Chloride 95 L, Carbon Dioxide 31, Anion Gap 9.8, BUN 23 H, Creatinine 2.42 H D, Estimated Creat Clear 25, Estimated GFR 26 L, Est GFR ( Amer) 32 L D, Glucose 249 H D, Calcium 8.3 L 03/24/19 06:51: POC Glucose 257 H Medical History: Reports:: Asthma, Cardiomyopathy, Congestive Heart Failure, Con genital Heart Disease, Coronary Artery Disease, Diabetes Mellitus Type 2, Gastroesophageal Reflux Disease(GERD), Hyperlipidemia, Hypertension, Lung Disease, MRSA, Renal Disease, Renal Insufficiency Denies:: Cancer, Diabetes Mellitus Type 1, Internal Pacemaker, Seizures Assessment and Plan (1) Abscess of right thigh Current visit: Yes Status: Acute Category: Medical Code(s): L02.415 - Cutaneous abscess of right lower limb (2) Cellulitis of right thigh Current visit: Yes Status: Acute Category: Medical Code(s): L03.115 - Cellulitis of right lower limb (3) Chronic kidney disease, stage 3 Current visit: No Status: Chronic Category: Medical Code(s): N18.3 - Chronic kidney disease, stage 3 (moderate) (4) Chronic systolic (congestive) heart failure Current visit: No Status: Chronic Category: Medical Code(s): I50.22 - Chronic systolic (congestive) heart failure (5) 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 extremities Current visit: No Status: Chronic Category: Medical Code(s): I87.2 - Venous insufficiency (chronic) (peripheral) (6) Ele[place]asis Current visit: No Status: Chronic Category: Medical Code(s): I89.0 - Lymphedema, not elsewhere classified (7) Morbid obesity Current visit: No Status: Chronic Category: Medical Code(s): E66.01 - Morbid (severe) obesity due to excess calories (8) Type 2 diabetes mellitus Current visit: No Status: Chronic Category: Medical Code(s): E11.9 - Type 2 diabetes mellitus without complications (9) CAD (coronary artery disease) Current visit: No Status: Chronic Qualifiers: Coronary Disease-Associated Artery/Lesion type: [place] artery [place] vs. transplanted heart: [place] heart Associated angina: with other forms of angina Qualified Code(s): I25.118 - Atherosclerotic heart disease of [place] coronary artery with other forms of angina pectoris Category: Medical Code(s): I25.10 - Atherosclerotic heart disease of [place] coronary artery without angina pectoris - Assessment and plan all Dx Assessment and Plan for all problems:: BASED ON PATIENT FACTORS, RECOMMEND VANCOMYCIN 2 GM IV Q36H. PATIENT'S SRCR HAS INCREASED TO 2.42 OVERNIGHT. PHARMACY WILL FOLLOW DAILY AND ADJUST APPROPRIATE.
--- NOTE | 2019-03-24 08:31 | Progress Note ---
<Viji Mederos - Last Filed: 03/24/19 08:29> Internal Medicine - PN: Subj *Date: 03/24/19 *Time: 08:29 Interval history: Patient states he feels about the same today. He has no new complaints. He states he slept well last night. He is n.p.o. this morning for surgery. Exam Vital signs and Labs for Last 24 Hours: Temp Pulse Resp BP Pulse Ox 98.9 F 72 18 104/52 L 91 L 03/24/19 04:00 03/24/19 04:00 03/24/19 04:00 03/24/19 04:00 03/24/19 04:00 Laboratory Results - last 24 hr 03/23/19 15:42: WBC 16.3 H, RBC 4.24 L, Hgb 11.7 L, Hct 36.2 L, MCV 85.3, MCH 27.5, MCHC 32.2, RDW 16.6, Plt Count 307, MPV 8.7, Neut % (Auto) 88.2 H, Lymph % (Auto) 4.8 L, Stark % (Auto) 6.1, Eos % (Auto) 0.7, Baso % (Auto) 0.1, Neut # (Auto) 14.4 H, Lymph # (Auto) 0.8, Stark # (Auto) 1.0, Eos # (Auto) 0.1, Baso # (Auto) 0.0, Total Counted 100, Neutrophils % (Manual) 90 H, Lymphocytes % (Manual) 3 L, Monocytes % (Manual) 4, Eosinophils % (Manual) 2, Metamyelocytes % 1.0, Platelet Estimate Normal, RBC Morphology Normal 03/23/19 15:42: Sodium 131 L, Potassium 4.4, Chloride 92 L, Carbon Dioxide 32, Anion Gap 11.4, BUN 21 H, Creatinine 1.92 H, Estimated Creat Clear 32, Estimated GFR 34 L, Est GFR ( Amer) 41 L, Glucose 110 H, Calcium 8.9, Total Bilirubin 0.8, AST 19, ALT 14, Alkaline Phosphatase 83, Total Protein 7.7, Albumin 3.0 L, Globulin 4.7 H, Albumin/Globulin Ratio 0.6 L 03/23/19 15:42: Lactate 1.4 03/23/19 15:42: Urine Color Yellow, Urine Appearance Clear, Urine pH 5.5, Ur Specific [place] 1.015, Urine Protein Negative, Urine Glucose (UA) 2+, Urine Ketones Negative, Urine Blood Trace-i, Urine Nitrate Negative, Urine Bilirubin Negative, Urine Urobilinogen 1.0, Ur Leukocyte Esterase Negative, Urine RBC Occasional, Urine WBC Occasional, Ur Squamous Epith Cells Occasional, Urine Bacteria Trace 03/23/19 21:58: POC Glucose 206 H 03/24/19 06:15: WBC 12.8 H, RBC 3.94 L, Hgb 10.1 L D, Hct 34.1 L, MCV 86.5, MCH 25.5 L, MCHC 29.5 L, RDW 17.8 H, Plt Count 276, MPV 8.2, Neut % (Auto) 84.0 H, Lymph % (Auto) 9.0 L, Stark % (Auto) 6.2, Eos % (Auto) 0.6, Baso % (Auto) 0.2, Neut # (Auto) 10.7 H, Lymph # (Auto) 1.1, Stark # (Auto) 0.8, Eos # (Auto) 0.1, Baso # (Auto) 0.0 03/24/19 06:15: Sodium 132 L, Potassium 3.8, Chloride 95 L, Carbon Dioxide 31, Anion Gap 9.8, BUN 23 H, Creatinine 2.42 H D, Estimated Creat Clear 25, Estimated GFR 26 L, Est GFR ( Amer) 32 L D, Glucose 249 H D, Calcium 8.3 L 03/24/19 06:51: POC Glucose 257 H I & O for Last 24 hours: Intake & Output 03/21/19 03/22/19 03/23/19 03/24/19 11:59 11:59 11:59 11:59 Intake Total 1140 / 1140 Balance 1140 / 1140 Weight 293 lb 8 oz - Constitutional no acute distress - *Routine Respiratory Exam Present: CTA bilaterally - *Routine Cardiovascular Exam Present: RRR - *Routine Abdominal Exam Present: soft, normoactive bowel sounds. Absent: tenderness - *Routine Extremities Exam Present: edema (bilateral LE's) - *Routine Skin Exam Comments: extensive area of erythema on the right posterior lateral thigh - *Routine Neurological Exam Present: alert, oriented X3 Assessment and Plan (1) Abscess of right thigh Current visit: Yes Status: Acute Category: Medical Code(s): L02.415 - Cutaneous abscess of right lower limb (2) Cellulitis of right thigh Current visit: Yes Status: Acute Category: Medical Code(s): L03.115 - Cellulitis of right lower limb (3) Chronic kidney disease, stage 3 Current visit: No Status: Chronic Category: Medical Code(s): N18.3 - Chronic kidney disease, stage 3 (moderate) (4) Chronic systolic (congestive) heart failure Current visit: No Status: Chronic Category: Medical Code(s): I50.22 - Chronic systolic (congestive) heart failure (5) 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 extremities Current visit: No Status: Chronic Category: Medical Code(s): I87.2 - Venous insufficiency (chronic) (peripheral) (6) [place] Current visit: No Status: Chronic Category: Medical Code(s): I89.0 - Lymphedema, not elsewhere classified (7) Morbid obesity Current visit: No Status: Chronic Category: Medical Code(s): E66.01 - Morbid (severe) obesity due to excess calories (8) Type 2 diabetes mellitus Current visit: No Status: Chronic Category: Medical Code(s): E11.9 - Type 2 diabetes mellitus without complications (9) CAD (coronary artery disease) Current visit: No Status: Chronic Qualifiers: Coronary Disease-Associated Artery/Lesion type: [place] artery [place] vs. transplanted heart: [place] heart Associated angina: with other forms of angina Qualified Code(s): I25.118 - Atherosclerotic heart disease of [place] coronary artery with other forms of angina pectoris Category: Medical Code(s): I25.10 - Atherosclerotic heart disease of [place] coronary artery without angina pectoris - Assessment and plan all Dx Assessment and Plan for all problems:: Patient is being taken to the OR this a.m. by Dr. Saavedra. <Raymond Baig - Last Filed: 03/24/19 09:26> Internal Medicine - PN: Subj *Date: 03/24/19 *Time: 09:21 Exam Vital signs and Labs for Last 24 Hours: Temp Pulse Resp BP Pulse Ox 97.6 F 66 20 118/80 92 L 03/24/19 08:00 03/24/19 08:00 03/24/19 08:00 03/24/19 08:00 03/24/19 08:00 Laboratory Results - last 24 hr 03/23/19 15:42: WBC 16.3 H, RBC 4.24 L, Hgb 11.7 L, Hct 36.2 L, MCV 85.3, MCH 27.5, MCHC 32.2, RDW 16.6, Plt Count 307, MPV 8.7, Neut % (Auto) 88.2 H, Lymph % (Auto) 4.8 L, Stark % (Auto) 6.1, Eos % (Auto) 0.7, Baso % (Auto) 0.1, Neut # (Auto) 14.4 H, Lymph # (Auto) 0.8, [place] # (Auto) 1.0, Eos # (Auto) 0.1, Baso # (Auto) 0.0, Total Counted 100, Neutrophils % (Manual) 90 H, Lymphocytes % (Manual) 3 L, Monocytes % (Manual) 4, Eosinophils % (Manual) 2, Metamyelocytes % 1.0, Platelet Estimate Normal, RBC Morphology Normal 03/23/19 15:42: Sodium 131 L, Potassium 4.4, Chloride 92 L, Carbon Dioxide 32, Anion Gap 11.4, BUN 21 H, Creatinine 1.92 H, Estimated Creat Clear 32, Estimated GFR 34 L, Est GFR ( Amer) 41 L, Glucose 110 H, Calcium 8.9, Total Bilirubin 0.8, AST 19, ALT 14, Alkaline Phosphatase 83, Total Protein 7.7, Albumin 3.0 L, Globulin 4.7 H, Albumin/Globulin Ratio 0.6 L 03/23/19 15:42: Lactate 1.4 03/23/19 15:42: Urine Color Yellow, Urine Appearance Clear, Urine pH 5.5, Ur Specific [place] 1.015, Urine Protein Negative, Urine Glucose (UA) 2+, Urine Ketones Negative, Urine Blood Trace-i, Urine Nitrate Negative, Urine Bilirubin Negative, Urine Urobilinogen 1.0, Ur Leukocyte Esterase Negative, Urine RBC Occasional, Urine WBC Occasional, Ur Squamous Epith Cells Occasional, Urine Bacteria Trace 03/23/19 21:58: POC Glucose 206 H 03/24/19 06:15: WBC 12.8 H, RBC 3.94 L, Hgb 10.1 L D, Hct 34.1 L, MCV 86.5, MCH 25.5 L, MCHC 29.5 L, RDW 17.8 H, Plt Count 276, MPV 8.2, Neut % (Auto) 84.0 H, Lymph % (Auto) 9.0 L, Stark % (Auto) 6.2, Eos % (Auto) 0.6, Baso % (Auto) 0.2, Neut # (Auto) 10.7 H, Lymph # (Auto) 1.1, [place] # (Auto) 0.8, Eos # (Auto) 0.1, Baso # (Auto) 0.0 03/24/19 06:15: Sodium 132 L, Potassium 3.8, Chloride 95 L, Carbon Dioxide 31, Anion Gap 9.8, BUN 23 H, Creatinine 2.42 H D, Estimated Creat Clear 25, Estimated GFR 26 L, Est GFR ( Amer) 32 L D, Glucose 249 H D, Calcium 8.3 L 03/24/19 06:51: POC Glucose 257 H 03/24/19 08:26: POC Glucose 257 H 03/24/19 09:06: POC Glucose 259 H I & O for Last 24 hours: Intake & Output 03/21/19 03/22/19 03/23/19 03/24/19 11:59 11:59 11:59 11:59 Intake Total 1140 / 1140 Balance 1140 / 1140 Weight 293 lb 8 oz Microbiology Reports for the Last 24 Hours: Microbiology 03/23/19 15:42 Blood Blood Culture - Preliminary Assessment and Plan (1) Abscess of right thigh Current visit: Yes Status: Acute Category: Medical Code(s): L02.415 - Cutaneous abscess of right lower limb (2) Cellulitis of right thigh Current visit: Yes Status: Acute Category: Medical Code(s): L03.115 - Cellulitis of right lower limb (3) Chronic kidney disease, stage 3 Current visit: No Status: Chronic Category: Medical Code(s): N18.3 - Chronic kidney disease, stage 3 (moderate) (4) Chronic systolic (congestive) heart failure Current visit: No Status: Chronic Category: Medical Code(s): I50.22 - Chronic systolic (congestive) heart failure (5) 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 extremities Current visit: No Status: Chronic Category: Medical Code(s): I87.2 - Venous insufficiency (chronic) (peripheral) (6) Morbid obesity Current visit: No Status: Chronic Category: Medical Code(s): E66.01 - Morbid (severe) obesity due to excess calories (7) Type 2 diabetes mellitus Current visit: No Status: Chronic Category: Medical Code(s): E11.9 - Type 2 diabetes mellitus without complications (8) Uncontrolled diabetes mellitus Current visit: Yes Status: Acute Category: Medical Code(s): E11.65 - Type 2 diabetes mellitus with hyperglycemia (9) CAD (coronary artery disease) Current visit: No Status: Chronic Qualifiers: Coronary Disease-Associated Artery/Lesion type: [place] artery [place] vs. transplanted heart: [place] heart Associated angina: with other forms of angina Qualified Code(s): I25.118 - Atherosclerotic heart disease of [place] coronary artery with other forms of angina pectoris Category: Medical Code(s): I25.10 - Atherosclerotic heart disease of [place] coronary artery without angina pectoris - Assessment and plan all Dx Assessment and Plan for all problems:: Patient seen and examined this AM. Concur with plan for surgical debridement
--- NOTE | 2019-03-24 10:31 | Operative Note ---
Date of procedure: 03/24/19 Pre-op Diagnosis:: Soft tissue infection of the right thigh Post-op Diagnosis:: Soft tissue infection (necrotizing cellulitis) of the right thigh Procedure performed:: Incision and drainage of complex right thigh abscess with debridement of skin and subcutaneous tissues Surgeon:: Gopi Saavedra MD BRUSH STAINER:: Cornel Manning Anesthesia: LMA Estimated blood loss (mL): 50 Clinical Note:: Patient is a 78-year-old white male from [place] with history of coronary artery disease with prior stenting on Plavix, cardiomyopathy, hypertension, poorly controlled diabetes, congestive heart failure, renal insufficiency, sleep apnes with a BMI of 45. He states that about 10 days ago on the right posterior lateral thigh he had a small area which was initially felt to be possible shingles. He was treated for shingles in the [place] clinic. However, he presented yesterday with worsening symptoms. He was found to have evidence of soft tissue infection and was referred to [facility] emergency department where he was seen and evaluated. Patient was found to have an area of extensive reddening and induration. He was admitted for inpatient management and started on intravenous antibiotics and surgical consultation. Plan was made for urgent incision and drainage and debridement for evidence of focal necrotizi ng soft tissue infection. Operative findings:: He had a 20 cm area of cellulitis. There was central necrotizing cellulitis characterized by multiple pockets of pus throughout the subcutaneous tissues for approximately 10 cm. Operative note:: Consent was obtained and patient was taken to the operating room. He was positioned in a supine position. General anesthesia was induced via LMA. He was positioned to allow access to the affected area. The area was prepped and draped in the standard surgical fashion. Limited incision was made centrally in the area of the obvious necrosis of skin and subcutaneous tissues using electrocautery. There was purulent drainage from the wound. This was sent for aerobic and anaerobic culture. There is evidence of necrosis of the subcutaneous tissues with multiple tracking pockets of thick pus. Circumferential serial debridement was carried out until nonnecrotic nonpurulent tissues were encountered. The tissue was excised using electrocautery. Hemostasis was achieved with use of electrocautery. Wound was thoroughly irrigated with approximately 3 L of warm pulsatile saline irrigation using the Pulsavac device. The wound was packed with saline moistened Kerlix. It was covered with clean dry sterile dressing. Wound dimensions: 10 cm x 7 cm x 2.5 cm in depth. Condition: stable Disposition: PACU Specimens:: Cultures sent Debrided tissue sent for histopathologic analysis Complications:: None immediately apparent
--- NOTE | 2019-03-24 10:40 | Progress Note ---
[facility] Anesthesia Record Part I Intake, IV Amount: 700 Estimated blood loss (mL): 100 Urine output (mL): 0 Blood Products used (#): none Blood Pressure: 97/44 SaO2: 95 Pulse Rate: 67 Respiratory Rate: 16 Temperature: 97.5 F Patient is:: Awake, Drowsy, Nasal O2, Stable Stable to PACU at:: 10:35
--- NOTE | 2019-03-24 10:41 | Progress Note ---
[facility] Anesthesia Record Part II Discharge Time: 11:05 Destination: Medical Surgical Department PACU nurse assessment reviewed?: Yes Patient Condition:: Good Anesthesia Complications:: None Swallowing reflex intact?: Yes Cyanosis?: No
--- NOTE | 2019-03-25 06:14 | Progress Note ---
Subjective Patient reports: no new complaints Exam Vital signs and Labs for Last 24 Hours: Temp Pulse Resp BP Pulse Ox 100.2 F H 98 H 16 98/52 L 90 L 03/25/19 04:00 03/25/19 04:00 03/25/19 04:00 03/25/19 04:00 03/25/19 04:00 Laboratory Results - last 24 hr 03/24/19 06:15: WBC 12.8 H, RBC 3.94 L, Hgb 10.1 L D, Hct 34.1 L, MCV 86.5, MCH 25.5 L, MCHC 29.5 L, RDW 17.8 H, Plt Count 276, MPV 8.2, Neut % (Auto) 84.0 H, Lymph % (Auto) 9.0 L, [place] % (Auto) 6.2, Eos % (Auto) 0.6, Baso % (Auto) 0.2, Neut # (Auto) 10.7 H, Lymph # (Auto) 1.1, [place] # (Auto) 0.8, Eos # (Auto) 0.1, Baso # (Auto) 0.0 03/24/19 06:15: Sodium 132 L, Potassium 3.8, Chloride 95 L, Carbon Dioxide 31, Anion Gap 9.8, BUN 23 H, Creatinine 2.42 H D, Estimated Creat Clear 25, Estimated GFR 26 L, Est GFR ( Amer) 32 L D, Glucose 249 H D, Calcium 8.3 L 03/24/19 06:51: POC Glucose 257 H 03/24/19 08:26: POC Glucose 257 H 03/24/19 09:06: POC Glucose 259 H 03/24/19 10:42: POC Glucose 258 H 03/24/19 16:40: POC Glucose 355 H* 03/24/19 20:37: POC Glucose 266 H 03/25/19 03:10: Lactate 1.0 I & O for Last 24 hours: Intake & Output 03/22/19 03/23/19 03/24/19 03/25/19 11:59 11:59 11:59 11:59 Intake Total 1840 / 1840 600 / 600 Output Total 250 / 250 Balance 1840 / 1840 350 / 350 Weight 293 lb 8 oz 293 lb 7.987 oz Microbiology Reports for the Last 24 Hours: Microbiology 03/24/19 09:56 Thigh - Right Gram Stain - Final 03/23/19 15:42 Blood Blood Culture - Preliminary - Constitutional no acute distress - *Routine Respiratory Exam Absent: respiratory distress - *Routine Cardiovascular Exam Present: RRR - *Routine Skin Exam Comments: Right lateral thigh dressing in place. No spreading cellulitis. Progress Note: A&P (1) Abscess of right thigh Status: Acute Assessment and plan: Overall, doing well status post incision and drainage/debridement Dressing changes as scheduled Continue antibiotics for now Current Visit: Yes (2) Cellulitis of right thigh Status: Acute Current Visit: Yes (3) Chronic kidney disease, stage 3 Status: Chronic Current Visit: No (4) Chronic systolic (congestive) heart failure Status: Chronic Current Visit: No (5) 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 extremities Status: Chronic Current Visit: No (6) Morbid obesity Status: Chronic Current Visit: No (7) Type 2 diabetes mellitus Status: Chronic Current Visit: No (8) Uncontrolled diabetes mellitus Status: Acute Current Visit: Yes (9) CAD (coronary artery disease) Status: Chronic Current Visit: No
[2019-03-25 06:42] LABS: Anion Gap 12.1 mEq/L (5-15); Calcium 7.5 mg/dL (8.5-10.1)
--- NOTE | 2019-03-25 08:36 | Progress Note ---
<Viji Mederos - Last Filed: 03/25/19 08:32> Internal Medicine - PN: Subj *Date: 03/25/19 *Time: 08:32 Interval history: Patient states he feels about the same today. He still has redness and swelling in his legs. He denies any pain. He states he slept well last night and did eat a good breakfast this morning. Exam Vital signs and Labs for Last 24 Hours: Temp Pulse Resp BP Pulse Ox 100.2 F H 83 16 98/52 L 92 L 03/25/19 04:00 03/25/19 06:40 03/25/19 04:00 03/25/19 04:00 03/25/19 06:40 Laboratory Results - last 24 hr 03/24/19 08:26: POC Glucose 257 H 03/24/19 09:06: POC Glucose 259 H 03/24/19 10:42: POC Glucose 258 H 03/24/19 16:40: POC Glucose 355 H* 03/24/19 20:37: POC Glucose 266 H 03/25/19 03:10: Lactate 1.0 03/25/19 06:02: Sodium 132 L, Potassium 4.1, Chloride 97 L, Carbon Dioxide 27, Anion Gap 12.1, BUN 32 H D, Creatinine 3.60 H D, Estimated Creat Clear 17, Estimated GFR 17 L*, Est GFR ( Amer) 20 L D, Glucose 259 H, Calcium 7.5 L 03/25/19 06:14: POC Glucose 260 H I & O for Last 24 hours: Intake & Output 03/22/19 03/23/19 03/24/19 03/25/19 11:59 11:59 11:59 11:59 Intake Total 1840 / 1840 1885 / 1885 Output Total 250 / 250 Balance 1840 / 1840 1635 / 1635 Weight 293 lb 8 oz 293 lb 7.987 oz Microbiology Reports for the Last 24 Hours: Microbiology 03/24/19 09:56 Thigh - Right Gram Stain - Final 03/24/19 09:56 Thigh - Right Surgical Biopsy Culture - Preliminary Gram Positive Cocci 03/23/19 15:42 Blood Blood Culture - Preliminary - Constitutional no acute distress - *Routine Respiratory Exam Present: CTA bilaterally - *Routine Cardiovascular Exam Present: RRR - *Routine Abdominal Exam Present: soft, normoactive bowel sounds, distended. Absent: tenderness - *Routine Extremities Exam Present: edema (bilateral LE's 2-3+ edema bilaterally) - *Routine Skin Exam Present: erythema (extending down the entire right leg and partially down the left leg, no ttp), warm, rash - *Routine Neurological Exam Present: alert, oriented X3 Assessment and Plan (1) Abscess of right thigh Current visit: Yes Status: Acute Category: Medical Code(s): L02.415 - Cutaneous abscess of right lower limb (2) Cellulitis of right thigh Current visit: Yes Status: Acute Category: Medical Code(s): L03.115 - Cellulitis of right lower limb (3) Chronic kidney disease, stage 3 Current visit: No Status: Chronic Category: Medical Code(s): N18.3 - Chronic kidney disease, stage 3 (moderate) (4) Chronic systolic (congestive) heart failure Current visit: No Status: Chronic Category: Medical Code(s): I50.22 - [place] systolic (congestive) heart failure (5) 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 extremities Current visit: No Status: Chronic Category: Medical Code(s): I87.2 - Venous insufficiency (chronic) (peripheral) (6) Morbid obesity Current visit: No Status: Chronic Category: Medical Code(s): E66.01 - Morbid (severe) obesity due to excess calories (7) Type 2 diabetes mellitus Current visit: No Status: Chronic Category: Medical Code(s): E11.9 - Type 2 diabetes mellitus without complications (8) Uncontrolled diabetes mellitus Current visit: Yes Status: Acute Category: Medical Code(s): E11.65 - Type 2 diabetes mellitus with hyperglycemia (9) CAD (coronary artery disease) Current visit: No Status: Chronic Qualifiers: Coronary Disease-Associated Artery/Lesion type: [place] artery [place] vs. transplanted heart: [place] heart Associated angina: with other forms of angina Qualified Code(s): I25.118 - Atherosclerotic heart disease of [place] coronary artery with other forms of angina pectoris Category: Medical Code(s): I25.10 - Atherosclerotic heart disease of [place] coronary artery without angina pectoris - Assessment and plan all Dx Assessment and Plan for all problems:: Right thigh culture is still pending. We will continue antibiotics. Patient will likely need outpatient home health for IV antibiotics upon discharge. Renal function is worsening. Will decrease Lasix as well as patient's IV fluids. <SafiaRaymond cooper - Last Filed: 03/25/19 10:05> Internal Medicine - PN: Subj *Date: 03/25/19 *Time: 10:04 Exam Vital signs and Labs for Last 24 Hours: Temp Pulse Resp BP Pulse Ox 97.8 F 84 18 120/44 L 93 L 03/25/19 08:00 03/25/19 08:00 03/25/19 08:00 03/25/19 08:00 03/25/19 08:00 Laboratory Results - last 24 hr 03/24/19 10:42: POC Glucose 258 H 03/24/19 16:40: POC Glucose 355 H* 03/24/19 20:37: POC Glucose 266 H 03/25/19 03:10: Lactate 1.0 03/25/19 06:02: Sodium 132 L, Potassium 4.1, Chloride 97 L, Carbon Dioxide 27, Anion Gap 12.1, BUN 32 H D, Creatinine 3.60 H D, Estimated Creat Clear 17, Estimated GFR 17 L*, Est GFR ( Amer) 20 L D, Glucose 259 H, Calcium 7.5 L 03/25/19 06:14: POC Glucose 260 H I & O for Last 24 hours: Intake & Output 03/22/19 03/23/19 03/24/19 03/25/19 11:59 11:59 11:59 11:59 Intake Total 1840 / 1840 1885 / 1885 Output Total 250 / 250 Balance 1840 / 1840 1635 / 1635 Weight 293 lb 8 oz 293 lb 7.987 oz Microbiology Reports for the Last 24 Hours: Microbiology 03/23/19 15:42 Blood Blood Culture - Preliminary Gram Positive Cocci 03/24/19 09:56 Thigh - Right Gram Stain - Final 03/24/19 09:56 Thigh - Right Surgical Biopsy Culture - Preliminary Gram Positive Cocci Assessment and Plan (1) Abscess of right thigh Current visit: Yes Status: Acute Category: Medical Code(s): L02.415 - Cutaneous abscess of right lower limb (2) Cellulitis of right thigh Current visit: Yes Status: Acute Category: Medical Code(s): L03.115 - Cellulitis of right lower limb (3) Chronic kidney disease, stage 3 Current visit: No Status: Chronic Category: Medical Code(s): N18.3 - Chronic kidney disease, stage 3 (moderate) (4) Chronic systolic (congestive) heart failure Current visit: No Status: Chronic Category: Medical Code(s): I50.22 - Chronic systolic (congestive) heart failure (5) 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 extremities Current visit: No Status: Chronic Category: Medical Code(s): I87.2 - Venous insufficiency (chronic) (peripheral) (6) Morbid obesity Current visit: No Status: Chronic Category: Medical Code(s): E66.01 - Mor bid (severe) obesity due to excess calories (7) Type 2 diabetes mellitus Current visit: No Status: Chronic Category: Medical Code(s): E11.9 - Type 2 diabetes mellitus without complications (8) Uncontrolled diabetes mellitus Current visit: Yes Status: Acute Category: Medical Code(s): E11.65 - Type 2 diabetes mellitus with hyperglycemia (9) CAD (coronary artery disease) Current visit: No Status: Chronic Qualifiers: Coronary Disease-Associated Artery/Lesion type: [place] artery [place] vs. transplanted heart: [place] heart Associated angina: with other forms of angina Qualified Code(s): I25.118 - Atherosclerotic heart disease of [place] coronary artery with other forms of angina pectoris Category: Medical Code(s): I25.10 - Atherosclerotic heart disease of [place] coronary artery without angina pectoris - Assessment and plan all Dx Assessment and Plan for all problems:: Patient seen and examined this AM. Concur with above.
[2019-03-26 06:10] LABS: Basophils % 0.1 % (0.1-2.0); Eosinophils # 0.3 K/mm3 (0.0-0.4); Eosinophils % 2.4 % (0.1-12.0); Hematocrit 33.2 % (42.0-52.0); Hemoglobin 9.7 g/dL (14.1-18.0); Lymphocytes # 0.6 K/mm3 (0.7-4.5); Lymphocytes % 4.7 % (10-50); Mean Corpuscular HGB Conc 29.1 g/dL (31.8-35.4); Mean Corpuscular Volume 88.4 fl (80-94); Mean Platelet Volume 7.7 fl (7.4-10.4); Monocytes # 0.8 K/mm3 (0.1-1.0); Monocytes % 6.4 % (1.7-9.3); Neutrophils # 10.4 K/mm3 (1.8-7.8); Neutrophils % 86.3 % (37.0-80.0); Platelet Count 316 K/mm3 (142-424); Red Blood Count 3.76 M/mm3 (4.60-6.20); Red Cell Distribution Width 17.4 % (11.5-17.5); White Blood Count 12.1 K/mm3 (4.8-10.8)
[2019-03-26 06:29] LABS: Anion Gap 12.3 mEq/L (5-15); Calcium 8.1 mg/dL (8.5-10.1)
[2019-03-26 07:12] LABS: Eosinophils % 2 % (0-3); Lymphocytes % 6 % (10-50); Monocytes % 4 % (2-9); Neutrophils % 88 % (42-76); Total Cells Counted 100
[2019-03-26 07:15] LABS: Hypochromasia 1+
--- NOTE | 2019-03-26 07:29 | Progress Note ---
Subjective Narrative: Patient resting. He does complain of some soreness. Wound cultures returned MRSA. He has MRSA positive blood cultures as well. Exam Vital signs and Labs for Last 24 Hours: Temp Pulse Resp BP Pulse Ox 99.9 F H 74 18 110/60 98 03/26/19 04:00 03/26/19 06:12 03/26/19 04:00 03/26/19 04:00 03/26/19 06:12 Laboratory Results - last 24 hr 03/25/19 11:21: POC Glucose 325 H* 03/25/19 17:04: POC Glucose 372 H* 03/25/19 20:34: POC Glucose 353 H* 03/26/19 05:42: Sodium 132 L, Potassium 4.3, Chloride 95 L, Carbon Dioxide 29, Anion Gap 12.3, BUN 38 H, Creatinine 3.62 H, Estimated Creat Clear 17, Estimated GFR 16 L*, Est GFR ( Amer) 20 L, Glucose 234 H, Calcium 8.1 L 03/26/19 05:42: WBC 12.1 H, RBC 3.76 L, Hgb 9.7 L, Hct 33.2 L, MCV 88.4, MCH 25.7 L, MCHC 29.1 L, RDW 17.4, Plt Count 316, MPV 7.7, Neut % (Auto) 86.3 H, Lymph % (Auto) 4.7 L, [place] % (Auto) 6.4, Eos % (Auto) 2.4, Baso % (Auto) 0.1, Neut # (Auto) 10.4 H, Lymph # (Auto) 0.6 L, [place] # (Auto) 0.8, Eos # (Auto) 0.3, Baso # (Auto) 0.0, Total Counted 100, Neutrophils % (Manual) 88 H, Lymphocytes % (Manual) 6 L, Monocytes % (Manual) 4, Eosinophils % (Manual) 2, Platelet Estimate Normal, Hypochromasia 1+ 03/26/19 06:35: POC Glucose 227 H I & O for Last 24 hours: Intake & Output 03/23/19 03/24/19 03/25/19 03/26/19 11:59 11:59 11:59 11:59 Intake Total 1840 / 1840 1885 / 1885 360 / 360 Output Total 250 / 250 250 / 250 Balance 1840 / 1840 1635 / 1635 110 / 110 Weight 293 lb 8 oz 293 lb 7.987 oz 296 lb 8 oz Microbiology Reports for the Last 24 Hours: Microbiology 03/24/19 09:56 Thigh - Right Gram Stain - Final 03/24/19 09:56 Thigh - Right Surgical Biopsy Culture - Final Staphylococcus aureus 03/23/19 15:42 Blood Blood Culture - Final Staphylococcus aureus 03/23/19 15:42 Blood Blood Culture - Preliminary NO GROWTH AFTER 48 HOURS Narrative: The wound itself appears clean without any evidence of purulence or necrosis. He does have diffuse cellulitis and edema which seems to be somewhat silver designer but more widespread. Progress Note: A&P (1) Abscess of right thigh Status: Acute Assessment and plan: Continue wet-to-dry dressings at this time. Continue intravenous antibiotics. At this time he does have significant evidence of ongoing cellulitis without any need for definitive debridement or incision and drainage. Current Visit: Yes (2) Cellulitis of right thigh Status: Acute Current Visit: Yes (3) Chronic kidney disease, stage 3 Status: Chronic Current Visit: No (4) Chronic systolic (congestive) heart failure Status: Chronic Current Visit: No (5) 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 extremities Status: Chronic Current Visit: No (6) Morbid obesity Status: Chronic Current Visit: No (7) Type 2 diabetes mellitus Status: Chronic Current Visit: No (8) Uncontrolled diabetes mellitus Status: Acute Current Visit: Yes (9) CAD (coronary artery disease) Status: Chronic Current Visit: No
--- NOTE | 2019-03-26 09:07 | Progress Note ---
<Vianney Bray - Last Filed: 03/26/19 09:03> Internal Medicine - PN: Subj *Date: 03/26/19 *Time: 08:00 Interval history: He is resting in bed with company at the bedside. He ate a good breakfast and is getting ready to have a BM. He denies any pain or complaints. His only concern is that he needs to get home to see his dog. Exam Vital signs and Labs for Last 24 Hours: Temp Pulse Resp BP Pulse Ox 100.7 F H 90 18 141/60 H 90 L 03/26/19 08:00 03/26/19 08:00 03/26/19 08:00 03/26/19 08:00 03/26/19 08:00 Laboratory Results - last 24 hr 03/25/19 11:21: POC Glucose 325 H* 03/25/19 17:04: POC Glucose 372 H* 03/25/19 20:34: POC Glucose 353 H* 03/26/19 05:09: POC Glucose 249 H 03/26/19 05:42: Sodium 132 L, Potassium 4.3, Chloride 95 L, Carbon Dioxide 29, Anion Gap 12.3, BUN 38 H, Creatinine 3.62 H, Estimated Creat Clear 17, Estimated GFR 16 L*, Est GFR ( Amer) 20 L, Glucose 234 H, Calcium 8.1 L 03/26/19 05:42: WBC 12.1 H, RBC 3.76 L, Hgb 9.7 L, Hct 33.2 L, MCV 88.4, MCH 25.7 L, MCHC 29.1 L, RDW 17.4, Plt Count 316, MPV 7.7, Neut % (Auto) 86.3 H, Lymph % (Auto) 4.7 L, [place] % (Auto) 6.4, Eos % (Auto) 2.4, Baso % (Auto) 0.1, Neut # (Auto) 10.4 H, Lymph # (Auto) 0.6 L, [place] # (Auto) 0.8, Eos # (Auto) 0.3, Baso # (Auto) 0.0, Total Counted 100, Neutrophils % (Manual) 88 H, Lymphocytes % (Manual) 6 L, Monocytes % (Manual) 4, Eosinophils % (Manual) 2, Platelet Estimate Normal, Hypochromasia 1+ 03/26/19 06:35: POC Glucose 227 H I & O for Last 24 hours: Intake & Output 03/23/19 03/24/19 03/25/19 03/26/19 11:59 11:59 11:59 11:59 Intake Total 1840 / 1840 1885 / 1885 840 / 840 Output Total 250 / 250 250 / 250 Balance 1840 / 1840 1635 / 1635 590 / 590 Weight 293 lb 8 oz 293 lb 7.987 oz 296 lb 8 oz Microbiology Reports for the Last 24 Hours: Microbiology 03/24/19 09:56 Thigh - Right Gram Stain - Final 03/24/19 09:56 Thigh - Right Surgical Biopsy Culture - Final Staphylococcus aureus 03/23/19 15:42 Blood Blood Culture - Final Staphylococcus aureus 03/23/19 15:42 Blood Blood Culture - Preliminary NO GROWTH AFTER 48 HOURS - Constitutional no acute distress - *Routine HEENT Exam Head: Present: normocephalic ENT: Present: mucous membranes moist - *Routine Respiratory Exam Comments: good air movement with few scattered wheezes - *Routine Cardiovascular Exam Present: RRR - *Routine Abdominal Exam Present: soft, normoactive bowel sounds. Absent: tenderness, distended, guarding, firm, rigid, organomegaly, mass - *Routine Extremities Exam Comments: lateral aspect of right posterior thigh dressing C/D/I with faint erythema present extending past margins; BLE edema with some erythema and scaling - *Routine Neurological Exam Present: alert, oriented X3 Assessment and Plan (1) Abscess of right thigh Current visit: Yes Status: Acute Category: Medical Code(s): L02.415 - Cutaneous abscess of right lower limb (2) Cellulitis of right thigh Current visit: Yes Status: Acute Category: Medical Code(s): L03.115 - Cellulitis of right lower limb (3) Chronic kidney disease, stage 3 Current visit: No Status: Chronic Category: Medical Code(s): N18.3 - Chronic kidney disease, stage 3 (moderate) (4) Chronic systolic (congestive) heart failure Current visit: No Status: Chronic Category: Medical Code(s): I50.22 - Chronic systolic (congestive) heart failure (5) 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 extremities Current visit: No Status: Chronic Category: Medical Code(s): I87.2 - Venous insufficiency (chronic) (peripheral) (6) Morbid obesity Current visit: No Status: Chronic Category: Medical Code(s): E66.01 - Morbid (severe) obesity due to excess calories (7) Type 2 diabetes mellitus Current visit: No Status: Chronic Category: Medical Code(s): E11.9 - Type 2 diabetes mellitus without complications (8) Uncontrolled diabetes mellitus Current visit: Yes Status: Acute Category: Medical Code(s): E11.65 - Type 2 diabetes mellitus with hyperglycemia (9) CAD (coronary artery disease) Current visit: No Status: Chronic Qualifiers: Coronary Disease-Associated Artery/Lesion type: [place] artery [place] vs. transplanted heart: [place] heart Associated angina: with other forms of angina Qualified Code(s): I25.118 - Atherosclerotic heart disease of [place] coronary artery with other forms of angina pectoris Category: Medical Code(s): I25.10 - Atherosclerotic heart disease of [place] coronary artery without angina pectoris - Assessment and plan all Dx Assessment and Plan for all problems:: Renal function remains decreased. Wound and blood cultures with growth of MRSA. Will continue current care. <Raymond Baig - Last Filed: 03/26/19 12:36> Internal Medicine - PN: Subj *Date: 03/26/19 *Time: 12:34 Exam Vital signs and Labs for Last 24 Hours: Temp Pulse Resp BP Pulse Ox 100.7 F H 90 18 141/60 H 90 L 03/26/19 08:00 03/26/19 08:00 03/26/19 08:00 03/26/19 08:00 03/26/19 08:00 Laboratory Results - last 24 hr 03/25/19 11:21: POC Glucose 325 H* 03/25/19 17:04: POC Glucose 372 H* 03/25/19 20:34: POC Glucose 353 H* 03/26/19 05:09: POC Glucose 249 H 03/26/19 05:42: Sodium 132 L, Potassium 4.3, Chloride 95 L, Carbon Dioxide 29, Anion Gap 12.3, BUN 38 H, Creatinine 3.62 H, Estimated Creat Clear 17, Estimated GFR 16 L*, Est GFR ( Amer) 20 L, Glucose 234 H, Calcium 8.1 L 03/26/19 05:42: WBC 12.1 H, RBC 3.76 L, Hgb 9.7 L, Hct 33.2 L, MCV 88.4, MCH 25.7 L, MCHC 29.1 L, RDW 17.4, Plt Count 316, MPV 7.7, Neut % (Auto) 86.3 H, Lymph % (Auto) 4.7 L, [place] % (Auto) 6.4, Eos % (Auto) 2.4, Baso % (Auto) 0.1, Neut # (Auto) 10.4 H, Lymph # (Auto) 0.6 L, [place] # (Auto) 0.8, Eos # (Auto) 0.3, Baso # (Auto) 0.0, Total Counted 100, Neutrophils % (Manual) 88 H, Lymphocytes % (Manual) 6 L, Monocytes % (Manual) 4, Eosinophils % (Manual) 2, Platelet Estimate Normal, Hypochromasia 1+ 03/26/19 06:35: POC Glucose 227 H I & O for Last 24 hours: Intake & Output 03/23/19 03/24/19 03/25/19 03/26/19 11:59 11:59 11:59 11:59 Intake Total 1840 / 1840 1885 / 1885 840 / 840 Output Total 250 / 250 250 / 250 Balance 1840 / 1840 1635 / 1635 590 / 590 Weight 293 lb 8 oz 293 lb 7.987 oz 296 lb 8 oz Microbiology Reports for the Last 24 Hours: Microbiology 03/24/19 09:56 Thigh - Right Gram Stain - Final 03/24/19 09:56 Thigh - Right Surgical Biopsy Culture - Final Staphylococcus aureus 03/23/19 15:42 Blood Blood Culture - Final Staphylococcus aureus 03/23/19 15:42 Blood Blood Culture - Preliminary NO GROWTH AFTER 48 HOURS Assessment and Plan (1) Abscess of right thigh Current visit: Yes Status: Acute Category: Medical Code(s): L02.415 - Cutaneous abscess of right lower limb (2) MRSA (methicillin resistant Staphylococcus aureus) septicemia Current visit: Yes Status: Acute Category: Medical Code(s): A41.02 - Sepsis due to Methicillin resistant Staphylococcus aureus (3) Sepsis Current visit: Yes Status: Acute Category: Medical Code(s): A41.9 - Sepsis, unspecified organism (4) Chronic kidney disease, stage 3 Current visit: No Status: Chronic Category: Medical Code(s): N18.3 - Chronic kidney disease, stage 3 (moderate) (5) Chronic systolic (congestive) heart failure Current visit: No Status: Chronic Category: Medical Code(s): I50.22 - Chronic systolic (congestive) heart failure (6) 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 extremities Current visit: No Status: Chronic Category: Medical Code(s): I87.2 - Venous insufficiency (chronic) (peripheral) (7) Morbid obesity Current visit: No Status: Chronic Category: Medical Code(s): E66.01 - Morbid (severe) obesity due to excess calories (8) Type 2 diabetes mellitus Current visit: No Status: Chronic Category: Medical Code(s): E11.9 - Type 2 diabetes mellitus without complications (9) Uncontrolled diabetes mellitus Current visit: Yes Status: Acute Category: Medical Code(s): E11.65 - Type 2 diabetes mellitus with hyperglycemia (10) CAD (coronary artery disease) Current visit: No Status: Chronic Qualifiers: Coronary Disease-Associated Artery/Lesion type: [place] artery [place] vs. transplanted heart: [place] heart Associated angina: with other forms of angina Qualified Code(s): I25.118 - Atherosclerotic heart disease of [place] coronary artery with other forms of angina pectoris Category: Medical Code(s): I25.10 - Atherosclerotic heart disease of [place] coronary artery without angina pectoris (11) Acute on chronic renal failure Current visit: Yes Status: Acute Category: Medical Code(s): N17.9 - Acute kidney failure, unspecified; N18.9 - Chronic kidney disease, unspecified - Assessment and plan all Dx Assessment and Plan for all problems:: Patient seen and examined this morning. States his leg feels better. Less pain. He rested well last night. Appetite is been fair. Renal function is stabilized. Wound culture and blood culture in both returned growing MRSA. We will DC his cefepime and continue the vancomycin.
[2019-03-26 12:24] LABS: ABG Base Excess 2.2 mmol/L (-2.4-2.3); ABG HCO3 27.7 mmhg (22.0-26.0); ABG Oxygen Saturation 95 % (90-100); ABG PH 7.36 mmol/L (7.35-7.45); ABG PO2 77.2 mmhg (80-100); ABG TCO2 29.2 mmhg (23-27)
[2019-03-26 12:26] LABS: Allen's Test Patient Unable
[2019-03-26 12:27] LABS: ABG PCO2 50.2 mmhg (35.0-45.0)
[2019-03-26 16:15] LABS: Microscopic, Urine URINE MICROSCOPIC (MICROSCOPIC)
[2019-03-26 16:16] LABS: Appearance,Urine CLEAR (Clear); Bilirubin,Urine Negative (Negative); Blood, Urine TRACE-I (Negative); Color,Urine YELLOW (Yellow); Glucose,Urine (UA) Negative (Negative); Ketones,Urine Negative (Negative); Leukocyte Esterase,Urine Negative (Negative); Protein,Urine Negative (Negative); Specific Gravity, Urine >= 1.030 (1.005-1.030); Urobilinogen,Urine 0.2 EU/dl (0.2)
[2019-03-26 16:35] LABS: Bacteria,Urine 3+ /lpf
[2019-03-27 06:58] LABS: Eosinophils # 0.2 K/mm3 (0.0-0.4); Eosinophils % 2.1 % (0.1-12.0); Hematocrit 30.2 % (42.0-52.0); Hemoglobin 8.9 g/dL (14.1-18.0); Lymphocytes # 0.8 K/mm3 (0.7-4.5); Lymphocytes % 8.5 % (10-50); Mean Corpuscular HGB Conc 29.4 g/dL (31.8-35.4); Mean Corpuscular Volume 87.5 fl (80-94); Mean Platelet Volume 7.8 fl (7.4-10.4); Monocytes # 0.7 K/mm3 (0.1-1.0); Neutrophils # 7.4 K/mm3 (1.8-7.8); Neutrophils % 81.3 % (37.0-80.0); Platelet Count 318 K/mm3 (142-424); Red Blood Count 3.44 M/mm3 (4.60-6.20); Red Cell Distribution Width 17.4 % (11.5-17.5); White Blood Count 9.1 K/mm3 (4.8-10.8)
[2019-03-27 07:04] LABS: Calcium 7.5 mg/dL (8.5-10.1)
--- NOTE | 2019-03-27 08:35 | Progress Note ---
Internal Medicine - PN: Subj *Date: 03/27/19 *Time: 09:40 Interval history: He gradually became more alert yesterday after being started on BiPAP. He was compliant with wearing the BiPAP through the night and rested well. Mental status appears back at baseline this morning. States he is hungry. He is "sore all over". Urine output has improved. [place] is in place. He has no history of prostate problems. Exam Vital signs and Labs for Last 24 Hours: Temp Pulse Resp BP Pulse Ox 97.8 F 64 18 106/49 L 93 L 03/27/19 08:00 03/27/19 08:00 03/27/19 08:00 03/27/19 08:00 03/27/19 08:00 Laboratory Results - last 24 hr 03/26/19 11:56: Specimen Source Right radial, O2 % 2lpm, ABG pH 7.36, ABG pCO2 50.2 H, ABG pO2 77.2 L, ABG HCO3 27.7 H, ABG Total CO2 29.2 H, ABG O2 Saturation 95, ABG Base Excess 2.2, Trace Test Patient unable 03/26/19 12:05: POC Glucose 194 H 03/26/19 15:47: Urine Color Yellow, Urine Appearance Clear, Urine pH 5.0, Ur Specific [place] >= 1.030, Urine Protein Negative, Urine Glucose (UA) Negative, Urine Ketones Negative, Urine Blood Trace-i, Urine Nitrate Negative, Urine Bilirubin Negative, Urine Urobilinogen 0.2, Ur Leukocyte Esterase Negative, Urine RBC None, Urine WBC 3-5, Ur Squamous Epith Cells 3-5, Urine Bacteria 3+ 03/26/19 16:47: POC Glucose 217 H 03/26/19 20:58: POC Glucose 184 H 03/27/19 04:48: Vancomycin Trough 14.5 03/27/19 06:17: POC Glucose 125 H 03/27/19 06:45: Sodium 135 L, Potassium 4.0, Chloride 100, Carbon Dioxide 29, Anion Gap 10.0, BUN 36 H, Creatinine 2.88 H D, Estimated Creat Clear 21, Estimated GFR 21 L, Est GFR ( Amer) 26 L D, Glucose 132 H, Calcium 7.5 L 03/27/19 06:45: WBC 9.1, RBC 3.44 L, Hgb 8.9 L, Hct 30.2 L, MCV 87.5, MCH 25.8 L , MCHC 29.4 L, RDW 17.4, Plt Count 318, MPV 7.8, Neut % (Auto) 81.3 H, Lymph % (Auto) 8.5 L, [place] % (Auto) 8.0, Eos % (Auto) 2.1, Baso % (Auto) 0.0 L, Neut # (Auto) 7.4, Lymph # (Auto) 0.8, [place] # (Auto) 0.7, Eos # (Auto) 0.2, Baso # (Auto) 0.0 I & O for Last 24 hours: Intake & Output 03/24/19 03/25/19 03/26/19 03/27/19 11:59 11:59 11:59 11:59 Intake Total 1840 / 1840 1885 / 1885 840 / 840 2709 / 2709 Output Total 250 / 250 250 / 250 1100 / 1100 Balance 1840 / 1840 1635 / 1635 590 / 590 1609 / 1609 Weight 293 lb 8 oz 293 lb 7.987 oz 296 lb 8 oz 302 lb 1 oz Microbiology Reports for the Last 24 Hours: Microbiology 03/24/19 09:56 Thigh - Right Gram Stain - Final 03/24/19 09:56 Thigh - Right Surgical Biopsy Culture - Final Staphylococcus aureus 03/23/19 15:42 Blood Blood Culture - Final Staphylococcus aureus Narrative: He is alert and oriented. Lungs are clear anteriorly. Heart is regular. Abdomen obese, soft, nondistended with no tenderness. Dressing on the thigh wound is clean and dry. The surrounding erythema seems to have improved. Bilateral lower extremities show chronic venous stasis changes with erythema to the proximal calves bilaterally. Assessment and Plan (1) Abscess of right thigh Current visit: Yes Status: Acute Category: Medical Code(s): L02.415 - Cutaneous abscess of right lower limb (2) MRSA (methicillin resistant Staphylococcus aureus) septicemia Current visit: Yes Status: Acute Category: Medical Code(s): A41.02 - Sepsis due to Methicillin resistant Staphylococcus aureus (3) Sepsis Current visit: Yes Status: Acute Category: Medical Code(s): A41.9 - Sepsis, unspecified organism (4) Chronic kidney disease, stage 3 Current visit: No Status: Chronic Category: Medical Code(s): N18.3 - Chronic kidney disease, stage 3 (moderate) (5) Chronic systolic (congestive) heart failure Current visit: No Status: Chronic Category: Medical Code(s): I50.22 - Chronic systolic (congestive) heart failure (6) 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 extremities Current visit: No Status: Chronic Category: Medical Code(s): I87.2 - Venous insufficiency (chronic) (peripheral) (7) Morbid obesity Current visit: No Status: Chronic Category: Medical Code(s): E66.01 - Morbid (severe) obesity due to excess calories (8) Type 2 diabetes mellitus Current visit: No Status: Chronic Category: Medical Code(s): E11.9 - Type 2 diabetes mellitus without complications (9) Uncontrolled diabetes mellitus Current visit: Yes Status: Acute Category: Medical Code(s): E11.65 - Type 2 diabetes mellitus with hyperglycemia (10) CAD (coronary artery disease) Current visit: No Status: Chronic Qualifiers: Coronary Disease-Associated Artery/Lesion type: [place] artery [place] vs. transplanted heart: [place] heart Associated angina: with other forms of angina Qualified Code(s): I25.118 - Atherosclerotic heart disease of [place] coronary artery with other forms of angina pectoris Category: Medical Code(s): I25.10 - Atherosclerotic heart disease of [place] coronary artery without angina pectoris (11) Acute on chronic renal failure Current visit: Yes Status: Acute Category: Medical Code(s): N17.9 - Acute kidney failure, unspecified; N18.9 - Chronic kidney disease, unspecified (12) CO2 narcosis Current visit: Yes Status: Acute Category: Medical Code(s): R06.89 - Other abnormalities of breathing (13) Altered mental state Current visit: Yes Status: Acute Category: Medical Code(s): R41.82 - Altered mental status, unspecified - Assessment and plan all Dx Assessment and Plan for all problems:: CO2 narcosis has resolved with BiPAP. This was likely medication related and the gabapentin has been discontinued. His renal function has improved significantly and he has had better urine output. We will continue with IV antibiotics and daily dressing changes as per surgery. Care management is to be working on disposition plans.
--- NOTE | 2019-03-27 11:11 | Pharmacy Consult Notes ---
- Pharmacy Consult Date: 03/27/19 Time: 11:10 Referring provider: DR. ECHEVARRIA Reason for Consult:: VANCOMYCIN LEVEL Allergies and ADEs:: Allergies Allergy/AdvReac Type Severity Reaction Status Date / Time morphine AdvReac Verified 03/23/19 19:27 Home Medications:: Home Medications Medication Instructions Recorded Confirmed Type Methocarbamol [Methocarbamol 500mg 500 mg PO BID 07/17/17 03/24/19 History Tablet] Omeprazole [Omeprazole 20mg 20 mg PO DAILY 07/17/17 03/23/19 History Capsule] Oxycodone HCl [Oxycodone (IR) 30mg 30 mg PO Q6HP PRN 07/17/17 03/24/19 History Tab] Umeclidinium Brm/Vilanterol Tr 1 each IH BID 07/17/17 03/23/19 History [Anoro Ellipta 62.5-25 Mcg INH] Albuterol Sulfate [Albuterol 2.5 mg IH QID 10/05/17 03/24/19 History Sulfate 2.5mg/0.5ml Neb] Clopidogrel Bisulfate [Plavix 75mg 75 mg PO DAILY 03/23/18 03/23/19 History Tab] Gabapentin [Gabapentin 800mg Tab] 800 mg PO QID 03/23/18 03/23/19 History Montelukast Sodium [Montelukast 10 mg PO HS 03/23/18 03/23/19 History 10mg Tab] insulin human U-100 NPH-regulr 60 unit SQ TID ml 05/11/18 03/24/19 History 70-30 mix 100 unit/mL subcutaneous susp aspirin 81 mg tablet,delayed 81 mg PO DAILY 05/26/18 03/23/19 History release furosemide 80 mg tablet 80 mg PO DAILY tab 07/14/18 03/23/19 History Ferrous Sulfate [Iron] 325 mg PO BID 03/23/19 03/23/19 History Isosorbide Mononitrate [Imdur 30mg 30 mg PO DAILY 03/23/19 03/23/19 History ER tablet] Levothyroxine Sodium 50 mcg PO DAILY 03/23/19 03/23/19 History [Levothyroxine 50mcg (0.05mg) Tab] Lisinopril [Lisinopril 10mg Tab] 10 mg PO BID 03/23/19 03/24/19 History Potassium Chloride 20 meq PO DAILY 03/23/19 03/23/19 History Pravastatin Sodium [Pravachol 20mg 20 mg PO HS 03/23/19 03/23/19 History Tablet] Allopurinol [Allopurinol 300mg 300 mg PO DAILY 03/24/19 03/24/19 History tablet] Amlodipine Besylate 10 mg PO DAILY 03/24/19 03/24/19 History Bisoprolol Fumarate [Bisoprolol 5 mg PO BID 03/24/19 03/24/19 History 5mg Tablet] Ipratropium [place] [Atrovent 0.5 mg IH QID 03/24/19 03/24/19 History 0.5mg/2.5mL neb] Loratadine [Allerclear] 10 mg PO DAILY 03/24/19 03/24/19 History Spironolactone [Spironolactone 25 mg PO BID 03/24/19 03/24/19 History 25mg Tablet] Height: 1.73 m Weight: 137.013 kg Laboratory Results:: Laboratory Results - last 24 hr 03/26/19 11:56: Specimen Source Right radial, O2 % 2lpm, ABG pH 7.36, ABG pCO2 50.2 H, ABG pO2 77.2 L, ABG HCO3 27.7 H, ABG Total CO2 29.2 H, ABG O2 Saturation 95, ABG Base Excess 2.2, Trace Test Patient unable 03/26/19 12:05: POC Glucose 194 H 03/26/19 15:47: Urine Color Yellow, Urine Appearance Clear, Urine pH 5.0, Ur Specific [place] >= 1.030, Urine Protein Negative, Urine Glucose (UA) Negative, Urine Ketones Negative, Urine Blood Trace-i, Urine Nitrate Negative, Urine Bilirubin Negative, Urine Urobilinogen 0.2, Ur Leukocyte Esterase Negative, Urine RBC None, Urine WBC 3-5, Ur Squamous Epith Cells 3-5, Urine Bacteria 3+ 03/26/19 16:47: POC Glucose 217 H 03/26/19 20:58: POC Glucose 184 H 03/27/19 04:48: Vancomycin Trough 14.5 03/27/19 05:55: PSA Screen 9.6 H 03/27/19 06:17: POC Glucose 125 H 03/27/19 06:45: Sodium 135 L, Potassium 4.0, Chloride 100, Carbon Dioxide 29, Anion Gap 10.0, BUN 36 H, Creatinine 2.88 H D, Estimated Creat Clear 21, Estimated GFR 21 L, Est GFR ( Amer) 26 L D, Glucose 132 H, Calcium 7.5 L 03/27/19 06:45: WBC 9.1, RBC 3.44 L, Hgb 8.9 L, Hct 30.2 L, MCV 87.5, MCH 25.8 L , MCHC 29.4 L, RDW 17.4, Plt Count 318, MPV 7.8, Neut % (Auto) 81.3 H, Lymph % (Auto) 8.5 L, [place] % (Auto) 8.0, Eos % (Auto) 2.1, Baso % (Auto) 0.0 L, Neut # (Auto) 7.4, Lymph # (Auto) 0.8, [place] # (Auto) 0.7, Eos # (Auto) 0.2, Baso # (Auto) 0.0 Medical History: Reports:: Asthma, Cardiomyopathy, Congestive Heart Failure, Congenital Heart Disease, Coronary Artery Disease, Diabetes Mellitus Type 2, Gastroesophageal Reflux Disease(GERD), Hyperlipidemia, Hypertension, Lung Disease, MRSA, Renal Disease, Renal Insufficiency Denies:: Cancer, Diabetes Mellitus Type 1, Internal Pacemaker, Seizures Assessment and Plan (1) Abscess of right thigh Current visit: Yes Status: Acute Category: Medical Code(s): L02.415 - Cutaneous abscess of right lower limb (2) MRSA (methicillin resistant Staphylococcus aureus) septicemia Current visit: Yes Status: Acute Category: Medical Code(s): A41.02 - Sepsis due to Methicillin resistant Staphylococcus aureus (3) Sepsis Current visit: Yes Status: Acute Category: Medical Code(s): A41.9 - Sepsis, unspecified organism (4) Chronic kidney disease, stage 3 Current visit: No Status: Chronic Category: Medical Code(s): N18.3 - Chronic kidney disease, stage 3 (moderate) (5) Chronic systolic (congestive) heart failure Current visit: No Status: Chronic Category: Medical Code(s): I50.22 - Chronic systolic (congestive) heart failure (6) 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 extremities Current visit: No Status: Chronic Category: Medical Code(s): I87.2 - Venous insufficiency (chronic) (peripheral) (7) Morbid obesity Current visit: No Status: Chronic Category: Medical Code(s): E66.01 - Morbid (severe) obesity due to excess calories (8) Type 2 diabetes mellitus Current visit: No Status: Chronic Category: Medical Code(s): E11.9 - Type 2 diabetes mellitus without complications (9) Uncontrolled diabetes mellitus Current visit: Yes Status: Acute Category: Medical Code(s): E11.65 - Type 2 diabetes mellitus with hyperglycemia (10) CAD (coronary artery disease) Current visit: No Status: Chronic Qualifiers: Coronary Disease-Associated Artery/Lesion type: [place] artery [place] vs. transplanted heart: [place] heart Associated angina: with other forms of angina Qualified Code(s): I25.118 - Atherosclerotic heart disease of [place] coronary artery with other forms of angina pectoris Category: Medical Code(s): I25.10 - Atherosclerotic heart disease of [place] coronary artery without angina pectoris (11) Acute on chronic renal failure Current visit: Yes Status: Acute Category: Medical Code(s): N17.9 - Acute kidney failure, unspecified; N18.9 - Chronic kidney disease, unspecified (12) CO2 narcosis Current visit: Yes Status: Acute Category: Medical Code(s): R06.89 - Other abnormalities of breathing (13) Altered mental state Current visit: Yes Status: Acute Category: Medical Code(s): R41.82 - Altered mental status, unspecified - Assessment and plan all Dx Assessment and Plan for all problems:: CONTINUE CURRENT DOSE AND INTERVAL OF VANCOMYCIN 2 GM Q48H AT THIS TIME.
--- NOTE | 2019-03-27 16:20 | Progress Note ---
Subjective Narrative: Mr. Ellsworth is a 78-year-old male with multiple medical comorbidities status post debridement of right thigh abscess/NSTI. Continuing dressing changes. Wound is clean. No further debridement needed. Exam Vital signs and Labs for Last 24 Hours: Temp Pulse Resp BP Pulse Ox 98.3 F 60 18 93/62 L 100 03/27/19 16:00 03/27/19 16:00 03/27/19 16:00 03/27/19 16:00 03/27/19 16:00 Laboratory Results - last 24 hr 03/26/19 15:47: Urine Color Yellow, Urine Appearance Clear, Urine pH 5.0, Ur Specific [place] >= 1.030, Urine Protein Negative, Urine Glucose (UA) Negative, Urine Ketones Negative, Urine Blood Trace-i, Urine Nitrate Negative, Urine Bilirubin Negative, Urine Urobilinogen 0.2, Ur Leukocyte Esterase Negative, Urine RBC None, Urine WBC 3-5, Ur Squamous Epith Cells 3-5, Urine Bacteria 3+ 03/26/19 16:47: POC Glucose 217 H 03/26/19 20:58: POC Glucose 184 H 03/27/19 04:48: Vancomycin Trough 14.5 03/27/19 05:55: PSA Screen 9.6 H 03/27/19 06:17: POC Glucose 125 H 03/27/19 06:45: Sodium 135 L, Potassium 4.0, Chloride 100, Carbon Dioxide 29, Anion Gap 10.0, BUN 36 H, Creatinine 2.88 H D, Estimated Creat Clear 21, Estimated GFR 21 L, Est GFR ( Amer) 26 L D, Glucose 132 H, Calcium 7.5 L 03/27/19 06:45: WBC 9.1, RBC 3.44 L, Hgb 8.9 L, Hct 30.2 L, MCV 87.5, MCH 25.8 L , MCHC 29.4 L, RDW 17.4, Plt Count 318, MPV 7.8, Neut % (Auto) 81.3 H, Lymph % (Auto) 8.5 L, [place] % (Auto) 8.0, Eos % (Auto) 2.1, Baso % (Auto) 0.0 L, Neut # (Auto) 7.4, Lymph # (Auto) 0.8, [place] # (Auto) 0.7, Eos # (Auto) 0.2, Baso # (Auto) 0.0 03/27/19 11:18: POC Glucose 145 H I & O for Last 24 hours: Intake & Output 03/25/19 03/26/19 03/27/19 03/28/19 11:59 11:59 11:59 11:59 Intake Total 1885 / 1885 840 / 840 2709 / 2709 Output Total 250 / 250 250 / 250 1100 / 1100 725 / 725 Balance 1635 / 1635 590 / 590 1609 / 1609 -725 / -725 Weight 133.129 kg 134.49 kg 137.013 kg Microbiology Reports for the Last 24 Hours: Microbiology 03/26/19 15:47 Urine,Catheterized Urine Culture - Preliminary NO GROWTH AFTER 24 HOURS - *Routine Extremities Exam Comments: Right upper thigh wound noted. Wound base clean. No further debridement noted. Minimal erythema. Progress Note: A&P (1) Abscess of right thigh Status: Acute Current Visit: Yes (2) MRSA (methicillin resistant Staphylococcus aureus) septicemia Status: Acute Current Visit: Yes (3) Sepsis Status: Acute Current Visit: Yes (4) Chronic kidney disease, stage 3 Status: Chronic Current Visit: No (5) Chronic systolic (congestive) heart failure Status: Chronic Current Visit: No (6) 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 extremities Status: Chronic Current Visit: No (7) Morbid obesity Status: Chronic Current Visit: No (8) Type 2 diabetes mellitus Status: Chronic Current Visit: No (9) Uncontrolled diabetes mellitus Status: Acute Current Visit: Yes (10) CAD (coronary artery disease) Status: Chronic Current Visit: No (11) Acute on chronic renal failure Status: Acute Current Visit: Yes (12) CO2 narcosis Status: Acute Current Visit: Yes (13) Altered mental state Status: Acute Current Visit: Yes Assessment and Plan for All Diagnoses:: 1. Necrotizing soft tissue infection. Right thigh abscess. Status post I&D. Postoperative day #3. WBC normal. Currently on vancomycin. Microbiology results demonstrate staph aureus. Sensitive to clindamycin. Transition to oral antibiotics in a.m.
[2019-03-28 07:50] LABS: Basophils % 0.1 % (0.1-2.0); Eosinophils # 0.2 K/mm3 (0.0-0.4); Eosinophils % 2.2 % (0.1-12.0); Hematocrit 30.8 % (42.0-52.0); Hemoglobin 9.1 g/dL (14.1-18.0); Lymphocytes # 0.6 K/mm3 (0.7-4.5); Lymphocytes % 6.7 % (10-50); Mean Corpuscular HGB Conc 29.7 g/dL (31.8-35.4); Mean Corpuscular Volume 86.6 fl (80-94); Mean Platelet Volume 7.5 fl (7.4-10.4); Monocytes # 0.4 K/mm3 (0.1-1.0); Monocytes % 4.3 % (1.7-9.3); Neutrophils # 7.7 K/mm3 (1.8-7.8); Neutrophils % 86.7 % (37.0-80.0); Platelet Count 317 K/mm3 (142-424); Red Blood Count 3.56 M/mm3 (4.60-6.20); Red Cell Distribution Width 17.7 % (11.5-17.5); White Blood Count 8.8 K/mm3 (4.8-10.8)
[2019-03-28 08:30] LABS: Anion Gap 12.3 mEq/L (5-15)
--- NOTE | 2019-03-28 08:42 | Progress Note ---
Internal Medicine - PN: Subj *Date: 03/28/19 *Time: 09:23 Interval history: Staff reports that he was somnolent through the day yesterday but alert and oriented when awake. He refused to wear his BiPAP last night. O2 sats have been satisfactory. He has not been eating well stating he does not like the food. Sugar was low last night and his insulin was held. He is awake and alert this morning and his only complaint is soreness around the wound of his right leg. Blood sugar is 202 this morning. Exam Vital signs and Labs for Last 24 Hours: Temp Pulse Resp BP Pulse Ox 98.5 F 88 18 146/59 H 93 L 03/28/19 07:52 03/28/19 07:52 03/28/19 07:52 03/28/19 07:52 03/28/19 07:52 Laboratory Results - last 24 hr 03/27/19 05:55: PSA Screen 9.6 H 03/27/19 11:18: POC Glucose 145 H 03/27/19 16:19: POC Glucose 76 03/27/19 18:18: POC Glucose 100 03/27/19 21:25: POC Glucose 149 H 03/28/19 06:18: POC Glucose 188 H 03/28/19 06:40: WBC 8.8, RBC 3.56 L, Hgb 9.1 L, Hct 30.8 L, MCV 86.6, MCH 25.7 L , MCHC 29.7 L, RDW 17.7 H, Plt Count 317, MPV 7.5, Neut % (Auto) 86.7 H, Lymph % (Auto) 6.7 L, [place] % (Auto) 4.3, Eos % (Auto) 2.2, Baso % (Auto) 0.1, Neut # (Auto) 7.7, Lymph # (Auto) 0.6 L, [place] # (Auto) 0.4, Eos # (Auto) 0.2, Baso # (Auto) 0.0 03/28/19 06:40: Sodium 136, Potassium 4.3, Chloride 101, Carbon Dioxide 27, Anion Gap 12.3, BUN 29 H, Creatinine 2.03 H D, Estimated Creat Clear 30, Estimated GFR 32 L, Est GFR ( Amer) 39 L D, Glucose 183 H D, Calcium 8.0 L I & O for Last 24 hours: Intake & Output 03/25/19 03/26/19 03/27/19 03/28/19 11:59 11:59 11:59 11:59 Intake Total 1885 / 1885 840 / 840 2709 / 2709 1613 / 1613 Output Total 250 / 250 250 / 250 1100 / 1100 1525 / 1525 Balance 1635 / 1635 590 / 590 1609 / 1609 88 / 88 Weight 293 lb 7.987 oz 296 lb 8 oz 302 lb 1 oz 302 lb 0.991 oz Microbiology Reports for the Last 24 Hours: Microbiology 03/26/19 15:47 Urine,Catheterized Urine Culture - Preliminary NO GROWTH AFTER 24 HOURS Narrative: He is sitting on the edge of the bed awake and alert. No respiratory distress. Lungs with generally diminished breath sounds but otherwise clear. Heart tones are distant but regular. Abdomen obese, soft, nondistended and nontender. He has [place] wraps on both lower extremities. Assessment and Plan (1) Abscess of right thigh Current visit: Yes Status: Acute Category: Medical Code(s): L02.415 - Cutaneous abscess of right lower limb (2) MRSA (methicillin resistant Staphylococcus aureus) septicemia Current visit: Yes Status: Acute Category: Medical Code(s): A41.02 - Sepsis due to Methicillin resistant Staphylococcus aureus (3) Sepsis Current visit: Yes Status: Acute Category: Medical Code(s): A41.9 - Sepsis, unspecified organism (4) Chronic kidney disease, stage 3 Current visit: No Status: Chronic Category: Medical Code(s): N18.3 - Chronic kidney disease, stage 3 (moderate) (5) Chronic systolic (congestive) heart failure Current visit: No Status: Chronic Category: Medical Code(s): I50.22 - Chronic systolic (congestive) heart failure (6) 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 extremities Current visit: No Status: Chronic Category: Medical Code(s): I87.2 - Venous insufficiency (chronic) (peripheral) (7) Morbid obesity Current visit: No Status: Chronic Category: Medical Code(s): E66.01 - Morbid (severe) obesity due to excess calories (8) Type 2 diabetes mellitus Current visit: No Status: Chronic Category: Medical Code(s): E11.9 - Type 2 diabetes mellitus without complications (9) Uncontrolled diabetes mellitus Current visit: Yes Status: Acute Category: Medical Code(s): E11.65 - Type 2 diabetes mellitus with hyperglycemia (10) CAD (coronary artery disease) Current visit: No Status: Chronic Qualifiers: Coronary Disease-Associated Artery/Lesion type: [place] artery [place] vs. transplanted heart: [place] heart Associated angina: with other forms of angina Qualified Code(s): I25.118 - Atherosclerotic heart disease of [place] coronary artery with other forms of angina pectoris Category: Medical Code(s): I25.10 - Atherosclerotic heart disease of [place] coronary artery without angina pectoris (11) Acute on chronic renal failure Current visit: Yes Status: Acute Category: Medical Code(s): N17.9 - Acute kidney failure, unspecified; N18.9 - Chronic kidney disease, unspecified (12) CO2 narcosis Current visit: Yes Status: Acute Category: Medical Code(s): R06.89 - Other abnormalities of breathing (13) Altered mental state Current visit: Yes Status: Acute Category: Medical Code(s): R41.82 - Altered mental status, unspecified - Assessment and plan all Dx Assessment and Plan for all problems:: Generally he is slowly improving. His somnolence is likely due to his COPD and hypercapnia. Will be encouraged to wear the BiPAP as much as possible. Continue current antibiotic regimen and wound care.
--- NOTE | 2019-03-28 12:29 | Progress Note ---
Subjective Narrative: Mr. Ellsworth is a 78-year-old male with NSTI right thigh requiring debridement; stopped it a #4. Looks much better. Sitting upright at bedside eating. No new complaints this afternoon. Exam Vital signs and Labs for Last 24 Hours: Temp Pulse Resp BP Pulse Ox 98.5 F 75 18 146/59 H 93 L 03/28/19 07:52 03/28/19 09:06 03/28/19 07:52 03/28/19 07:52 03/28/19 07:52 Laboratory Results - last 24 hr 03/27/19 16:19: POC Glucose 76 03/27/19 18:18: POC Glucose 100 03/27/19 21:25: POC Glucose 149 H 03/28/19 06:18: POC Glucose 188 H 03/28/19 06:40: WBC 8.8, RBC 3.56 L, Hgb 9.1 L, Hct 30.8 L, MCV 86.6, MCH 25.7 L , MCHC 29.7 L, RDW 17.7 H, Plt Count 317, MPV 7.5, Neut % (Auto) 86.7 H, Lymph % (Auto) 6.7 L, [place] % (Auto) 4.3, Eos % (Auto) 2.2, Baso % (Auto) 0.1, Neut # (Auto) 7.7, Lymph # (Auto) 0.6 L, [place] # (Auto) 0.4, Eos # (Auto) 0.2, Baso # (Auto) 0.0 03/28/19 06:40: Sodium 136, Potassium 4.3, Chloride 101, Carbon Dioxide 27, [place] Gap 12.3, BUN 29 H, Creatinine 2.03 H D, Estimated Creat Clear 30, Estimated GFR 32 L, Est GFR ( Amer) 39 L D, Glucose 183 H D, Calcium 8.0 L 03/28/19 08:30: POC Glucose 202 H 03/28/19 12:05: POC Glucose 138 H I & O for Last 24 hours: Intake & Output 03/26/19 03/27/19 03/28/19 03/29/19 11:59 11:59 11:59 11:59 Intake Total 840 / 840 2709 / 2709 1613 / 1613 Output Total 250 / 250 1100 / 1100 1525 / 1525 Balance 590 / 590 1609 / 1609 88 / 88 Weight 134.49 kg 137.013 kg 137.013 kg Microbiology Reports for the Last 24 Hours: Microbiology 03/26/19 15:47 Urine,Catheterized Urine Culture - Preliminary NO GROWTH AFTER 24 HOURS - Constitutional no acute distress Progress Note: A&P (1) Abscess of right thigh Status: Acute Current Visit: Yes (2) MRSA (methicillin resistant Staphylococcus aureus) septicemia Status: Acute Current Visit: Yes (3) Sepsis Status: Acute Current Visit: Yes (4) Chronic kidney disease, stage 3 Status: Chronic Current Visit: No (5) Chronic systolic (congestive) heart failure Status: Chronic Current Visit: No (6) 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 extremities Status: Chronic Current Visit: No (7) Morbid obesity Status: Chronic Current Visit: No (8) Type 2 diabetes mellitus Status: Chronic Current Visit: No (9) Uncontrolled diabetes mellitus Status: Acute Current Visit: Yes (10) CAD (coronary artery disease) Status: Chronic Current Visit: No (11) Acute on chronic renal failure Status: Acute Current Visit: Yes (12) CO2 narcosis Status: Acute Current Visit: Yes (13) Altered mental state Status: Acute Current Visit: Yes Assessment and Plan for All Diagnoses:: 1. Right thigh abscess. Staph aureus positive on culture. Status post debridement. Transition to oral antibiotics.
[2019-03-28 13:53] LABS: Lymphocytes % 7 % (10-50); Monocytes % 4 % (2-9); Neutrophils % 89 % (42-76); Total Cells Counted 100
[2019-03-29 06:46] LABS: Anion Gap 10.2 mEq/L (5-15); Calcium 8.2 mg/dL (8.5-10.1)
--- NOTE | 2019-03-29 08:56 | Progress Note ---
Subjective Patient reports: no new complaints Exam Vital signs and Labs for Last 24 Hours: Temp Pulse Resp BP Pulse Ox 98.3 F 87 17 165/61 H 94 L 03/29/19 08:03 03/29/19 08:03 03/29/19 08:03 03/29/19 08:03 03/29/19 08:03 Laboratory Results - last 24 hr 03/28/19 06:40: Total Counted 100, Neutrophils % (Manual) 89 H, Lymphocytes % (Manual) 7 L, Monocytes % (Manual) 4, Platelet Estimate Normal 03/28/19 08:30: POC Glucose 202 H 03/28/19 12:05: POC Glucose 138 H 03/28/19 16:32: POC Glucose 86 03/28/19 20:35: POC Glucose 122 H 03/29/19 05:46: POC Glucose 175 H 03/29/19 06:03: Sodium 135 L, Potassium 4.2, Chloride 102, Carbon Dioxide 27, Anion Gap 10.2, BUN 22 H, Creatinine 1.45 H D, Estimated Creat Clear 42, Estimated GFR 47 L, Est GFR ( Amer) 57 L D, Glucose 176 H, Calcium 8.2 L I & O for Last 24 hours: Intake & Output 03/26/19 03/27/19 03/28/19 03/29/19 11:59 11:59 11:59 11:59 Intake Total 840 / 840 2709 / 2709 1613 / 1613 1829 / 1829 Output Total 250 / 250 1100 / 1100 1525 / 1525 1900 / 1900 Balance 590 / 590 1609 / 1609 88 / 88 -71 / -71 Weight 296 lb 8 oz 302 lb 1 oz 302 lb 0.991 oz 303 lb 4 oz Microbiology Reports for the Last 24 Hours: Microbiology 03/26/19 15:47 Urine,Catheterized Urine Culture - Final NO GROWTH AFTER 48 HOURS 03/23/19 15:42 Blood Blood Culture - Final NO GROWTH AFTER 5 DAYS - *Routine Skin Exam Comments: Wound clean. Vigorously probed and there does not appear to be any undrained abscess or necrosis. Patient does have rash extending from his thigh to his anterior and posterior trunk. Progress Note: A&P (1) Abscess of right thigh Status: Acute Current Visit: Yes (2) MRSA (methicillin resistant Staphylococcus aureus) septicemia Status: Acute Current Visit: Yes (3) Sepsis Status: Acute Current Visit: Yes (4) Chronic kidney disease, stage 3 Status: Chronic Current Visit: No (5) Chronic systolic (congestive) heart failure Status: Chronic Current Visit: No (6) 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 extremities Status: Chronic Current Visit: No (7) Morbid obesity Status: Chronic Current Visit: No (8) Type 2 diabetes mellitus Status: Chronic Current Visit: No (9) Uncontrolled diabetes mellitus Status: Acute Current Visit: Yes (10) CAD (coronary artery disease) Status: Chronic Current Visit: No (11) Acute on chronic renal failure Status: Acute Current Visit: Yes (12) CO2 narcosis Status: Acute Current Visit: Yes (13) Altered mental state Status: Acute Current Visit: Yes Assessment and Plan for All Diagnoses:: Initiate discharge planning. Would advocate negative pressure wound therapy dressing. Due to the significance of his infection including MRSA bacteremia likely would best be served with oral Zyvox as an outpatient.
--- NOTE | 2019-03-29 15:27 | Progress Note ---
<Kyra Barahona - Last Filed: 03/29/19 15:23> Internal Medicine - PN: Subj *Date: 03/29/19 *Time: 09:40 Interval history: patient is adamant that he needs to go home. Denies pain and SOB; eating without problems; ambulates without difficulty Exam Vital signs and Labs for Last 24 Hours: Temp Pulse Resp BP Pulse Ox 98.3 F 75 17 165/61 H 94 L 03/29/19 08:03 03/29/19 09:22 03/29/19 08:03 03/29/19 08:03 03/29/19 08:03 Laboratory Results - last 24 hr 03/28/19 16:32: POC Glucose 86 03/28/19 20:35: POC Glucose 122 H 03/29/19 05:46: POC Glucose 175 H 03/29/19 06:03: Sodium 135 L, Potassium 4.2, Chloride 102, Carbon Dioxide 27, Anion Gap 10.2, BUN 22 H, Creatinine 1.45 H D, Estimated Creat Clear 42, Estimated GFR 47 L, Est GFR ( Amer) 57 L D, Glucose 176 H, Calcium 8.2 L 03/29/19 11:16: POC Glucose 173 H I & O for Last 24 hours: Intake & Output 03/27/19 03/28/19 03/29/19 03/30/19 11:59 11:59 11:59 11:59 Intake Total 2709 / 2709 1613 / 1613 1829 / 1829 Output Total 1100 / 1100 1525 / 1525 1900 / 1900 Balance 1609 / 1609 88 / 88 -71 / -71 Weight 302 lb 1 oz 302 lb 0.991 oz 303 lb 4 oz Microbiology Reports for the Last 24 Hours: Microbiology 03/26/19 15:47 Urine,Catheterized Urine Culture - Final NO GROWTH AFTER 48 HOURS 03/23/19 15:42 Blood Blood Culture - Final NO GROWTH AFTER 5 DAYS - Constitutional no acute distress, agitated - *Routine Respiratory Exam Present: CTA bilaterally (A&P) - *Routine Cardiovascular Exam Present: RRR - *Routine Extremities Exam Present: edema (bilateral leg) - *Routine Skin Exam Present: rash (whelpy; on back and legs) - *Routine Neurological Exam Present: alert, oriented X3 Assessment and Plan (1) Abscess of right thigh Status: Acute Category: Medical Code(s): L02.415 - Cutaneous abscess of right lower limb (2) MRSA (methicillin resistant Staphylococcus aureus) septicemia Status: Acute Category: Medical Code(s): A41.02 - Sepsis due to Methicillin resistant Staphylococcus aureus (3) Sepsis Status: Acute Category: Medical Code(s): A41.9 - Sepsis, unspecified organism (4) Chronic kidney disease, stage 3 Status: Chronic Category: Medical Code(s): N18.3 - Chronic kidney disease, stage 3 (moderate) (5) Chronic systolic (congestive) heart failure Status: Chronic Category: Medical Code(s): I50.22 - Chronic systolic (congestive) heart failure (6) 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 extremities Status: Chronic Category: Medical Code(s): I87.2 - Venous insufficiency (chronic) (peripheral) (7) Morbid obesity Status: Chronic Category: Medical Code(s): E66.01 - Morbid (severe) obesity due to excess calories (8) Type 2 diabetes mellitus Status: Chronic Category: Medical Code(s): E11.9 - Type 2 diabetes mellitus without complications (9) Uncontrolled diabetes mellitus Status: Acute Category: Medical Code(s): E11.65 - Type 2 diabetes mellitus with hyperglycemia (10) CAD (coronary artery disease) Status: Chronic Qualifiers: Coronary Disease-Associated Artery/Lesion type: [place] artery [place] vs. transplanted heart: [place] heart Associated angina: with other forms of angina Qualified Code(s): I25.118 - Atherosclerotic heart disease of [place] coronary artery with other forms of angina pectoris Category: Medical Code(s): I25.10 - Atherosclerotic heart disease of [place] coronary artery without angina pectoris (11) Acute on chronic renal failure Status: Acute Category: Medical Code(s): N17.9 - Acute kidney failure, unspecified; N18.9 - Chronic kidney disease, unspecified (12) CO2 narcosis Status: Acute Category: Medical Code(s): R06.89 - Other abnormalities of breathing (13) Altered mental state Status: Acute Category: Medical Code(s): R41.82 - Altered mental status, unspecified - Assessment and plan all Dx Assessment and Plan for all problems:: allergic rash probably due to Clindamycin; benadryl prn; DC Clinda; will probably go home this PM and start Zyvox PO; surgeon discussed wound vac; will have HH; care management to arrange <Raymond Baig - Last Filed: 03/29/19 16:15> Internal Medicine - PN: Subj *Date: 03/29/19 *Time: 16:13 Exam Vital signs and Labs for Last 24 Hours: Temp Pulse Resp BP Pulse Ox 98.3 F 75 17 165/61 H 94 L 03/29/19 08:03 03/29/19 09:22 03/29/19 08:03 03/29/19 08:03 03/29/19 08:03 Laboratory Results - last 24 hr 03/28/19 16:32: POC Glucose 86 03/28/19 20:35: POC Glucose 122 H 03/29/19 05:46: POC Glucose 175 H 03/29/19 06:03: Sodium 135 L, Potassium 4.2, Chloride 102, Carbon Dioxide 27, Anion Gap 10.2, BUN 22 H, Creatinine 1.45 H D, Estimated Creat Clear 42, Estimated GFR 47 L, Est GFR ( Amer) 57 L D, Glucose 176 H, Calcium 8.2 L 03/29/19 11:16: POC Glucose 173 H I & O for Last 24 hours: Intake & Output 03/27/19 03/28/19 03/29/19 03/30/19 11:59 11:59 11:59 11:59 Intake Total 2709 / 2709 1613 / 1613 1829 / 1829 Output Total 1100 / 1100 1525 / 1525 1900 / 1900 Balance 1609 / 1609 88 / 88 -71 / -71 Weight 302 lb 1 oz 302 lb 0.991 oz 303 lb 4 oz Microbiology Reports for the Last 24 Hours: Microbiology 03/26/19 15:47 Urine,Catheterized Urine Culture - Final NO GROWTH AFTER 48 HOURS 03/23/19 15:42 Blood Blood Culture - Final NO GROWTH AFTER 5 DAYS Assessment and Plan (1) Abscess of right thigh Status: Acute Category: Medical Code(s): L02.415 - Cutaneous abscess of right lower limb (2) MRSA (methicillin resistant Staphylococcus aureus) septicemia Status: Acute Category: Medical Code(s): A41.02 - Sepsis due to Methicillin resistant Staphylococcus aureus (3) Sepsis Status: Acute Category: Medical Code(s): A41.9 - Sepsis, unspecified organism (4) Chronic kidney disease, stage 3 Status: Chronic Category: Medical Code(s): N18.3 - Chronic kidney disease, stage 3 (moderate) (5) Chronic systolic (congestive) heart failure Status: Chronic Category: Medical Code(s): I50.22 - Chronic systolic (congestive) heart failure (6) 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 extremities Status: Chronic Category: Medical Code(s): I87.2 - Venous insufficiency (chronic) (peripheral) (7) Morbid obesity Status: Chronic Category: Medical Code(s): E66.01 - Morbid (severe) obesity due to excess calories (8) Type 2 diabetes mellitus Status: Chronic Category: Medical Code(s): E11.9 - Type 2 diabetes mellitus without complications (9) Uncontrolled diabetes mellitus Status: Acute Category: Medical Code(s): E11.65 - Type 2 diabetes mellitus with hyperglycemia (10) CAD (coronary artery disease) Status: Chronic Qualifiers: Coronary Disease-Associated Artery/Lesion type: [place] vs. transplanted heart: [place] heart Associated angina: with other forms of angina Qualified Code(s): I25.118 - Atherosclerotic heart disease of [place] coronary artery with other forms of angina pectoris Category: Medical Code(s): I25.10 - Atherosclerotic heart disease of [place] coronary artery without angina pectoris (11) Acute on chronic renal failure Status: Acute Category: Medical Code(s): N17.9 - Acute kidney failure, unspecified; N18.9 - Chronic kidney disease, unspecified (12) CO2 narcosis Status: Acute Category: Medical Code(s): R06.89 - Other abnormalities of breathing (13) Altered mental state Status: Acute Category: Medical Code(s): R41.82 - Altered mental status, unspecified - Assessment and plan all Dx Assessment and Plan for all problems:: Patient seen and examined. Renal function continues to improve. He is much more alert. He is medically stable for discharge. Care management is working on arranging home health for wound care with a wound VAC per surgery and also for physical therapy. He will be discharged home on p.o. Zyvox. 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
--- NOTE | 2019-03-30 13:41 | Discharge Summary ---
General - General Admission date:: 03/23/19 <Raymond Baig - 04/12/19 22:56> 03/23/19 <GatitoViji - 03/30/19 13:43> Discharge date: 03/29/19 <GatitoViji - 03/30/19 13:43> HPI HPI: Mr. Ellsworth is a 78-year-old male with a history of diabetes mellitus, coronary artery disease, and hypertension who was sent in from the [facility]. For approximately 10 days he had had an infected area on the back of his right thigh. Initially he thought it was shingles. Initially he said it itched. He saw his primary care doctor and was started on a medication for shingles. He did not improve. He was seen in follow-up and was sent to the emergency room. He denied fever. The area had gone from being pruritic to being painful. He denied drainage. He is diabetic. <GatitoViji - 03/30/19 13:43> Hospital Course Hospital Course: The patient had known cardiac and kidney issues as well as diabetes. He is followed in [place] for nephrology and endocrinology. 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 The patient was felt to have a cellulitis and was admitted and started on IV antibiotics. His home medications were initiated. Surgery was consulted and Dr. Saavedra felt the patient would need incision and drainage as well as debridement as this could possibly be focal necrotizing cellulitis. Dr. Saavedra performed the procedure on 03/24/2019 and did find a 20 cm area of cellulitis with central necrotizing cellulitis throughout the subcutaneous tissues for approximately 10 cm. Cultures were sent and the debrided tissue was sent for histopathologic analysis. The patient tolerated the procedure well and dressings were changed by surgery. He did develop more erythema and swelling in his lower legs. His renal function worsened as well. His Lasix dose was decreased and his IV fluids were decreased as well. His wound cultures returned positive for MRSA and his blood cultures were positive for MRSA as well. Dr. Saavedra recommended continued IV antibiotics. He was continued on vancomycin and the cefepime was discontinued. His renal function stabilized. He did have an episode on 03/26/2019 where he became more somnolent and less responsive. A blood gas was obtained and showed that he was retaining CO2, therefore he was placed on BiPAP. His gabapentin was also discontinued as he only took that at home on an as-needed basis. He had minimal urine output, therefore a Abebe was placed with a return of nearly 1500 cc of dark-colored urine. His urinalysis showed no signs of infection. He tolerated the BiPAP well. He gradually became more alert and his mental status returned to baseline. His urinary output improved. Surgery felt no further debridement would be necessary. The patient was started on clindamycin and developed a rash from his leg to his trunk. It was felt this was an allergy to the clindamycin, therefore it was discontinued and he was given Benadryl. Dr. Saavedra felt the patient would need to be discharged on Zyvox due to the extent of his cellulitis as well as his MRSA bacteremia. He also felt the patient would need a wound VAC and outpatient physical therapy. Care management arranged home health for wound care with a wound VAC and also therapy. The patient was stable to be discharged home on p.o. 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 <Viji Mederos - 03/30/19 13:43> Objective Vital signs: Temp Pulse Resp BP Pulse Ox 98.3 F 75 17 165/61 H 94 L 03/29/19 08:03 03/29/19 09:22 03/29/19 08:03 03/29/19 08:03 03/29/19 08:03 <SafiaRaymond Rogerio - 04/12/19 22:56> Temp Pulse Resp BP Pulse Ox 98.3 F 75 17 165/61 H 94 L 03/29/19 08:03 03/29/19 09:22 03/29/19 08:03 03/29/19 08:03 03/29/19 08:03 <Viji Mederos - 03/30/19 13:43> Narrative: - Constitutional no acute distress, agitated - *Routine Respiratory Exam Present: CTA bilaterally (A&P) - *Routine Cardiovascular Exam Present: RRR - *Routine Extremities Exam Present: edema (bilateral leg) - *Routine Skin Exam Present: rash (whelpy; on back and legs) - *Routine Neurological Exam Present: alert, oriented X3 <Viji Mederos - 03/30/19 13:43> DS: Diagnosis - Discharge Diagnosis (1) Abscess of right thigh Status: Acute (2) MRSA (methicillin resistant Staphylococcus aureus) septicemia Status: Acute (3) Sepsis Status: Acute (4) Chronic kidney disease, stage 3 Status: Chronic (5) Chronic systolic (congestive) heart failure Status: Chronic (6) 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 extremities Status: Chronic (7) Morbid obesity Status: Chronic (8) Type 2 diabetes mellitus Status: Chronic (9) Uncontrolled diabetes mellitus Status: Acute (10) CAD (coronary artery disease) Status: Chronic (11) Acute on chronic renal failure Status: Acute (12) CO2 narcosis Status: Acute (13) Altered mental state Status: Acute <Viji Mederos - 03/30/19 13:29> (1) Abscess of right thigh Status: Acute (2) MRSA (methicillin resistant Staphylococcus aureus) septicemia Status: Acute (3) Sepsis Status: Acute (4) Chronic kidney disease, stage 3 Status: Chronic (5) Chronic systolic (congestive) heart failure Status: Chronic (6) 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 extremities Status: Chronic (7) Morbid obesity Status: Chronic (8) Type 2 diabetes mellitus Status: Chronic (9) Uncontrolled diabetes mellitus Status: Acute (10) CAD (coronary artery disease) Status: Chronic (11) Acute on chronic renal failure Status: Acute (12) CO2 narcosis Status: Acute (13) Altered mental state Status: Acute <Raymond Baig - 04/12/19 22:56> Discharge Plan - Patient Discharge Instructions ACTIVITY: Continue current activity <Viji Mederos - 03/30/19 13:43> DIET: continue same diet <Viji Mederos - 03/30/19 13:43> Patient Instructions: Methicillin-Resistant Staph Infection, DI for Surgical Site Infection, DI for Skin Abscess <Raymond Baig - 04/12/19 22:56> Forms: <Raymond Baig - 04/12/19 22:56> - Follow up Plan Follow up with: Gopi Saavedra MD [Staff Physician] - 04/05/19 9:45 am Raymond Baig MD [Staff Physician] - 04/13/19 11:30 am <Raymond Baig - 04/12/19 22:56> Disposition: Home Health Service <Raymond Baig - 04/12/19 22:56> Home Medications: Home Medications Medication Instructions Recorded Confirmed Type Methocarbamol [Methocarbamol 500mg 500 mg PO BID 07/17/17 04/08/19 History Tablet] Omeprazole [Omeprazole 20mg 20 mg PO DAILY 07/17/17 04/08/19 History Capsule] Oxycodone HCl [Oxycodone (IR) 30mg 30 mg PO Q6HP PRN 07/17/17 04/08/19 History Tab] Umeclidinium Brm/Vilanterol Tr 1 each IH BID 07/17/17 04/08/19 History [Anoro Ellipta 62.5-25 Mcg INH] Albuterol Sulfate [Albuterol 2.5 mg IH QID 10/05/17 04/08/19 History Sulfate 2.5mg/0.5ml Neb] Clopidogrel Bisulfate [Plavix 75mg 75 mg PO DAILY 03/23/18 04/08/19 History Tab] Montelukast Sodium [Montelukast 10 mg PO HS 03/23/18 04/08/19 History 10mg Tab] insulin human U-100 NPH-regulr 60 unit SQ TID ml 05/11/18 04/08/19 History 70-30 mix 100 unit/mL subcutaneous susp aspirin 81 mg tablet,delayed 81 mg PO DAILY 05/26/18 04/08/19 History release furosemide 80 mg tablet 80 mg PO DAILY tab 07/14/18 04/08/19 History Ferrous Sulfate [Iron] 325 mg PO BID 03/23/19 04/08/19 History Isosorbide Mononitrate [Imdur 30mg 30 mg PO DAILY 03/23/19 04/08/19 History ER tablet] Levothyroxine Sodium 50 mcg PO DAILY 03/23/19 04/08/19 History [Levothyroxine 50mcg (0.05mg) Tab] Lisinopril [Lisinopril 10mg Tab] 10 mg PO BID 03/23/19 04/08/19 History Potassium Chloride 20 meq PO DAILY 03/23/19 04/08/19 History Pravastatin Sodium [Pravachol 20mg 20 mg PO HS 03/23/19 04/08/19 History Tablet] Allopurinol [Allopurinol 300mg 300 mg PO DAILY 03/24/19 04/08/19 History tablet] Amlodipine Besylate 10 mg PO DAILY 03/24/19 04/08/19 History Ipratropium Leslie [Atrovent 0.5 mg IH QID 03/24/19 04/08/19 History 0.5mg/2.5mL neb] Loratadine [Allerclear] 10 mg PO DAILY 03/24/19 04/08/19 History Spironolactone [Spironolactone 25 mg PO BID 03/24/19 04/08/19 History 25mg Tablet] Gabapentin 800 mg PO QID 03/29/19 04/08/19 History Linezolid [Zyvox] 600 mg PO BID #28 tab 03/29/19 04/08/19 Rx bisoprolol fumarate 5 mg tablet 5 mg PO DAILY #30 tab 04/08/19 04/08/19 Rx <Raymond Baig - 04/12/19 22:56> Prescriptions/Medication Reconciliation: New Linezolid [Zyvox] 600 mg PO BID #28 tab Continued insulin human U-100 NPH-regulr 70-30 mix 100 unit/mL subcutaneous susp 60 unit SQ TID ml aspirin 81 mg tablet,delayed release 81 mg PO DAILY furosemide 80 mg tablet 80 mg PO DAILY tab Umeclidinium Brm/Vilanterol Tr [Anoro Ellipta 62.5-25 Mcg INH] 1 each IH BID Oxycodone HCl [Oxycodone (IR) 30mg Tab] 30 mg PO Q6HP PRN PRN Reason: PAIN Omeprazole [Omeprazole 20mg Capsule] 20 mg PO DAILY Methocarbamol [Methocarbamol 500mg Tablet] 500 mg PO BID Albuterol Sulfate [Albuterol Sulfate 2.5mg/0.5ml Neb] 2.5 mg IH QID Levothyroxine Sodium [Levothyroxine 50mcg (0.05mg) Tab] 50 mcg PO DAILY Lisinopril [Lisinopril 10mg Tab] 10 mg PO BID Isosorbide Mononitrate [Imdur 30mg ER tablet] 30 mg PO DAILY Potassium Chloride 20 meq PO DAILY Spironolactone [Spironolactone 25mg Tablet] 25 mg PO BID Allopurinol [Allopurinol 300mg tablet] 300 mg PO DAILY Ipratropium Leslie [Atrovent 0.5mg/2.5mL neb] 0.5 mg IH QID Amlodipine Besylate 10 mg PO DAILY Gabapentin 800 mg PO QID Clopidogrel Bisulfate [Plavix 75mg Tab] 75 mg PO DAILY Montelukast Sodium [Montelukast 10mg Tab] 10 mg PO HS Pravastatin Sodium [Pravachol 20mg Tablet] 20 mg PO HS Ferrous Sulfate [Iron] 325 mg PO BID Loratadine [Allerclear] 10 mg PO DAILY No Action bisoprolol fumarate 5 mg tablet 5 mg PO DAILY #30 tab <Raymond Baig - 04/12/19 22:56> - Problem Reconciliation Problems Reviewed?: Yes <Raymond Baig - 04/12/19 22:56> Yes <Viji Mederos - 03/30/19 13:43> - Additional Information Additional Information: Concur with plan for discharge as outlined above. <Raymond Baig - 04/12/19 22:56>
== END 2019-03-29 14:05 | disposition home health service (06) | DRG 602 ==
LOC: ER 15:12 → 2ND 15:12 → OBSVTOIN 18:46
PROVIDERS: ADMIT Family Medicine; ATTEND Family Medicine
CPT/HCPCS: 36415; 80048; 80053; 80202; 81001; 82803; 82962; 83605; 85007; 85025; 87040; 87070; 87075; 87077; 87086; 87186; 87205; 88304; 94640; 94660; 94761; 96365; 96367; 97161; 99284; G0103; J0692; J2405; J2543; J3370

== ENCOUNTER → 2019-04-08 14:57 | Outpatient (CLI) | payer MEDICARE, SELFPAY ==
[2019-04-08 18:15] LABS: Blood Urea Nitrogen 15 mg/dL (7-18); Calcium 7.8 mg/dL (8.5-10.1); Carbon Dioxide 30 mmol/L (21.0-32.0); Chloride 103 mmol/L (98-107); Creatinine,Serum 1.87 mg/dL (0.70-1.30); Estimated Glomerular Filt Rate 35 ml/min (>60); GFR (African American) 43 ML/MIN (>60); Sodium 141 mmol/L (136-145)
[2019-04-08 18:46] LABS: Glucose 50 mg/dL (74-106)
== END ==
PROVIDERS: Visit Provider Internal Medicine Cardiovascular Disease
DX: E13.69 Other specified diabetes mellitus with other specified complication (principal); E78.49 Other hyperlipidemia; I11.9 Hypertensive heart disease without heart failure; I25.118 Atherosclerotic heart disease of native coronary artery with other forms of angina pectoris; I50.9 Heart failure, unspecified; R00.1 Bradycardia, unspecified; R06.09 Other forms of dyspnea; Z79.4 Long term (current) use of insulin; Z95.5 Presence of coronary angioplasty implant and graft
CPT/HCPCS: 36415; 80048

== ENCOUNTER → 2019-06-08 11:07 | Outpatient (CLI) | payer MEDICARE, SELFPAY ==
[2019-06-08 14:09] LABS: Hemoglobin A1C 7.9 % (0.0-7.0)
== END ==
PROVIDERS: PCP Internal Medicine Adolescent Medicine; Visit Provider Internal Medicine Adolescent Medicine
DX: E11.65 Type 2 diabetes mellitus with hyperglycemia (principal); Z79.4 Long term (current) use of insulin
CPT/HCPCS: 83036

== ENCOUNTER → 2019-09-29 14:22 | Outpatient (CLI) | payer MEDICARE, SELFPAY ==
[2019-09-28 12:13] LABS: Chloride 95 mmol/L (98-107); Potassium 4.3 mmoL/L (3.5-5.1); Sodium 136 mmol/L (136-145)
[2019-09-28 12:16] LABS: Blood Urea Nitrogen 19 mg/dl (9-20); Estimated Glomerular Filt Rate 42 ml/min (>60); GFR (African American) 51 ML/MIN (>60)
[2019-09-28 12:17] LABS: Anion Gap 15.3 mEq/L (5-15); Calcium 9.1 mg/dl (8.4-10.2); Carbon Dioxide 30 mmol/L (22.0-30.0); Glucose 288 mg/dl (74-100)
[2019-09-28 12:25] LABS: NT Pro Brain Natriuretic Pep. 339 pg/mL (0-450)
== END ==
PROVIDERS: Visit Provider Physician Assistant
DX: I25.10 Atherosclerotic heart disease of native coronary artery without angina pectoris; I49.5 Sick sinus syndrome; Z95.5 Presence of coronary angioplasty implant and graft; I11.0 Hypertensive heart disease with heart failure
CPT/HCPCS: 80048; 83880

== ENCOUNTER 2019-10-06 07:54 | Day surgery (SDC) | payer MEDICARE, SELFPAY ==
[2019-10-06] VITALS (9 sets, daily range): BP systolic 118–163; BP diastolic 52–104; PULSE 72–82; RESP 14–20; TEMP 36.4; O2SAT 89–93; BMI 45.1
--- NOTE | 2019-10-06 | IR_ITS ---
APPROVED REPORT Patient Location: Outpatient Returned Goods Repairer: RADHA Benites RT (R) PROCEDURES 1. Pocket formation for Permanent Pacemaker Placement. 2. Placement of an atrial sensing and pacing coil into the right atrial appendage. 3. Placement of a ventricular sensing and pacing coil in the right ventricular apex. 4. Permanent Pacemaker Placement. 5. Removal of Loop recorger device. INDICATION Symptomatic Bradycardia, Sick Sinus Syndrome Informed consent was obtained prior to the procedure. COMPLICATIONS None Estimated Blood Loss: Less than 10 Mls TECHNIQUE 1% Lidocaine with epinephrine used to anesthetized the left anterior aspect of the chest. Scalpel was used to make the initial cutaneous incision while electrocautery was used to dissect down tinto the fascia. The fascia was lifted off the pectoralis muscle and digitally manipulated creating a pocket for the pacemaker. The patient was then placed in Trendelenburg position and the subclavian vein was accessed twice via the Selinger technique, there are two wires in the vein. A 6 Azeri sheath was placed under fluoroscopic guidance into the subclavian vein over one of the wires while keeping the other wire in place within the subclavian vein. The dilator was removed from the sheath. Using fluoroscopic guidance, the ventricular lead was placed into the right ventricular apex, screwed and secured into place. Electronic interrogation proved acceptable thresholds and voltage within the lead. Using 3-0 silk, the ventricular lead was then secured into place. Lead was secured to the facia using the 3-0 silk. Following this, the sheath was pealed away. An additional 6 Azeri fresh sheath and dilator was placed over the existing wire. Using fluoroscopic guidance, the atrial lead was the placed into the right atrial appendage and screwed and secured in place. Electrical interrogation demonstrated acceptable thresholds and voltage number. The atrial lead was then secured into place using 3-0 silk. 1 gram of Ancef was used to flush the pocket. Following the pacemaker generator being secured to the fascia and in place, Monocryl was used to close the subcutaneous layers while susan were used to close the cutaneous layer. A pressure dressing was placed and the patient was transferred to the postop holding area in stable condition for postoperative care. Sit of Loop Recorder device was anestetized with 1% Lidocaine, incision made at lateral end of device, hemostats used to retail associate loop recorder to remove the device. 2 single susan ere used to close small incision and pressure dressing applied over area. IMPRESSION Generator Model: ACCOLADE Generator Serial No: [id number] RA Lead Model: INGEVITY RA Lead Serial No: [id number] RV Lead Model: INGEVITY RA Lead Serial No: [id number] Device Measurements: RA Lead: Intrinsic: 4.0mV Threshold: 1.0V@0.4ms Impedence: 623 ohms RV Lead: Intrinsic: 12mV Threshold: 0.5V@0.4ms Impedence: 858 ohms Parameters: Mode: DDDR Base/Max: 60/130ppm Conclusion 1. Successful pocket formation for Permanent Pacemaker Placement. 2. Successful placement of an atrial sensing and pacing coil into the right atrial appendage. 3. Successful placement of a ventricular sensing and pacing coil in the right ventricular apex. 4. Successful permanent Pacemaker Placement. 5. Successful removal of loop recorder device. PLAN 1. Follow up in office. 2. Post op wound care. Electronically signed by : Lyle Pratt, 10/07/2019 10:42:52
--- NOTE | 2019-10-06 08:01 | CA_ITS ---
APPROVED REPORT EXAM: Comprehensive 2D, Doppler, and color-flow Echocardiogram Supervisor Pre Wave: Laura Franklin RT(R) Ht: 5 ft 8 in Wt: 297lbs BSA: 2.42 BP: 155/56 mmHg Indications: CP, palpitations, SOB, HTN, obesity, Hyperlipidemia, CM, CAD, Stent, lung mass, needs AICD if EF < 35%, LIMITED echo EF check M-Mode Dimensions RVDd 2.74 cm (0.9-2.6) LVDd 5.60 cm (3.5-5.7) LVDs 4.04 cm (3.5-5.7) IVSd 1.29 cm (0.6-1.1) PWd 1.25 cm (0.6-1.1) EF (Teich) 53.40% FS 27.90% EDV (Teich) 153.70 mL ESV (Teich) 71.70 mL Left Ventricle Left atrium is mildly enlarged, left ventricle is normal size, mild concentric left ventricular hypertrophy, visually estimated ejection fraction 55% with no obvious regional wall motion abnormality. Right Ventricle Right atrium and right ventricular normal size and contractility. Aortic Valve Aortic valve is minimally thickened and fibrosed, there is no aortic stenosis. Mitral Valve Mitral valve leaflets are minimally thickened. There is no mitral stenosis. Tricuspid Valve Tricuspid valve is grossly normal. Pulmonic Valve Pulmonic valve is poorly visualized. Great Vessels Aortic root is normal size. Pericardium No significant pericardial effusion noted. Conclusion 1. Mildly enlarged left atrium, normal left ventricular size, mild concentric left ventricular hypertrophy, visually estimated ejection fraction approximately 55% with no regional wall motion abnormality. 2. Limited study with no Doppler. 3. No significant pericardial effusion noted. Electronically signed by : René De León, 10/06/2019 10:30:13
[2019-10-06 08:57] LABS: Chloride 96 mmol/L (98-107)
[2019-10-06 08:58] LABS: Sodium 134 mmol/L (136-145)
[2019-10-06 09:00] LABS: Blood Urea Nitrogen 21 mg/dl (9-20); Creatinine Clearance Estimated 32 mL/min (50-200); Estimated Glomerular Filt Rate 35 ml/min (>60); GFR (African American) 42 ML/MIN (>60)
[2019-10-06 09:01] LABS: Calcium 9.2 mg/dl (8.4-10.2); Carbon Dioxide 30 mmol/L (22.0-30.0); Glucose 234 mg/dl (74-100)
[2019-10-06 09:12] LABS: Basophils % 0.3 % (0.1-2.0); Eosinophils # 0.2 K/mm3 (0.0-0.4); Eosinophils % 2.2 % (0.1-12.0); Hematocrit 35.2 % (42.0-52.0); Hemoglobin 10.5 g/dL (14.1-18.0); Lymphocytes # 0.9 K/mm3 (0.7-4.5); Lymphocytes % 9.6 % (10-50); Mean Corpuscular HGB Conc 29.7 g/dL (31.8-35.4); Mean Corpuscular Hemoglobin 24.1 pg (27.0-31.2); Mean Corpuscular Volume 80.9 fl (80-94); Mean Platelet Volume 7.9 fl (7.4-10.4); Monocytes # 0.4 K/mm3 (0.1-1.0); Neutrophils # 7.6 K/mm3 (1.8-7.8); Neutrophils % 83.9 % (37.0-80.0); Platelet Count 354 K/mm3 (142-424); Red Blood Count 4.36 M/mm3 (4.60-6.20); Red Cell Distribution Width 16.5 % (11.5-17.5); White Blood Count 9.1 K/mm3 (4.8-10.8)
--- NOTE | 2019-10-06 11:09 | XR_ITS ---
PROCEDURE: XR CHEST PORTABLE CLINICAL HISTORY: pacemaker placement Follow-up pacemaker placement COMPARISON: CXR2V XR chest 2V from 03/23/[address] chest wo con from 03/23/2018 CXR1VP XR chest portable from 03/26/2018 XR CHEST 2V from 07/09/2019 FINDINGS: Bipolar pacemaker has been inserted by the left subclavian approach with the leads in satisfactory position. There is no evidence of pneumothorax. There is mild cardiomegaly without failure. Atelectatic changes are present in the right lower lobe. There are old fractures of the left 8th and 9th ribs. The lungs are clear without infiltrates, suspicious nodules, or pleural effusions. No acute bony abnormalities. IMPRESSION: Cardiomegaly with interval insertion bipolar pacemaker with right lower lobe airspace disease Dictated by: Trace Nair MD 10/06/2019 11:56 Electronically signed by Trace Nair MD in [place] 10/06/2019 11:56
[2019-10-06 12:21] LABS: POC Glucose,Bedside 158 (70-110)
== END 2019-10-06 12:42 | disposition home or self-care (01) ==
LOC: CATHLAB 07:56
PROVIDERS: PCP Nurse Practitioner; Visit Provider Internal Medicine
DX: I49.5 Sick sinus syndrome (principal); Z45.09 Encounter for adjustment and management of other cardiac device; I13.0 Hypertensive heart and chronic kidney disease with heart failure and stage 1 through stage 4 chronic kidney disease, or unspecified chronic kidney disease; E11.22 Type 2 diabetes mellitus with diabetic chronic kidney disease; N18.9 Chronic kidney disease, unspecified; I50.9 Heart failure, unspecified; Z79.4 Long term (current) use of insulin; Z82.49 Family history of ischemic heart disease and other diseases of the circulatory system; Z95.5 Presence of coronary angioplasty implant and graft; E03.9 Hypothyroidism, unspecified; E66.01 Morbid (severe) obesity due to excess calories; Z68.42 Body mass index [BMI] 45.0-49.9, adult
CPT/HCPCS: 33208; 33286; 71045; 80048; 82962; 85025; 93308; C1785; C1898

== ENCOUNTER 2019-10-18 20:51 | Inpatient (IN) | payer MEDICARE, SELFPAY ==
--- NOTE | 2019-10-18 20:56 | PC.NURSE ---
called respiratory for ABG
--- NOTE | 2019-10-18 20:57 | ECG_ITS ---
APPROVED REPORT Exam: Resting ECG HR:97 bpm ECG Measurements Heart Rate 97 AXES WI 172 P 58 QRSd 88 QRS -19 QT 366 T 54 QTc 464 <Conclusion> Sinus rhythm with premature atrial complexes with aberrant conduction Poor R Wave Progression Motion artifact Abnormal ECG Electronically signed by : Hayden Mccall, 10/19/2019 15:38:23
[2019-10-18 21:17] VITALS: BP 149/74; PULSE 84; RESP 22; TEMP 37.1; O2SAT 84; BMI 46.2
--- NOTE | 2019-10-18 21:25 | XR_ITS ---
PROCEDURE: XR CHEST PORTABLE CLINICAL HISTORY: soa, shortness of air, heart disease COMPARISON: CHESTWO CT chest wo con from 03/23/2018 CXR1VP XR chest portable from 03/26/2018 XR CHEST 2V from 07/09/2019 XR CHEST PORTABLE from 10/06/2019 FINDINGS: Mild cardiomegaly without failure. Bipolar pacemaker is present from left subclavian approach. Minimal atelectatic change in the right lung base. There is an old left 7th and 8th rib fracture. No evidence of pneumothorax. No acute bony abnormalities. IMPRESSION: Cardiomegaly with bipolar pacemaker present with right lower lobe atelectasis Dictated by: Trace Nair MD 10/19/2019 05:21 Electronically signed by Trace Nair MD in [place] 10/19/2019 05:21
--- NOTE | 2019-10-18 21:29 | HMH.EDSOB ---
ED Disposition Clinical Impression: Cellulitis of both lower extremities, Chronic kidney disease, stage 3, Morbid obesity, Severe sepsis with acute organ dysfunction Type 2 diabetes mellitus Qualifiers: Diabetes mellitus mcfp insulin use: unspecified mcfp insulin use status Diabetes mellitus complication status: with other specified complication Qualified Code(s): E11.69 - Type 2 diabetes mellitus with other specified complication Disposition: Admitted as Observation Condition on Discharge: Fair Referrals: Shraddha Sanders APRN [Primary Care Provider] - - Critical Care Critical Care Time: No Attestation: On 10/18/19, the high probability of a clinically significant, sudden or life threatening deterioration of the following system(s) required my full and direct attention, intervention and personal management. The time I documented below is in addition to time spent performing reported procedures but includes the following listed in this critical care notation. Medical Decision Making - Medical Records Medical records reviewed: Yes: I reviewed the patient's medical records. - Kehinde Inquiry Pt receiving controlled substance: No Vital Signs: 10/18/19 21:17 10/18/19 22:03 10/18/19 22:18 Temperature 98.8 F Temperature Source Oral Pulse Rate [Right] 84 94 H 94 H Respiratory Rate 22 18 18 Blood Pressure [Right Arm] 149/74 H 99/49 L 112/58 L Blood Pressure Mean [Right Arm] 99 65 76 Blood Pressure Source [Right Arm] Automatic Cuff Blood Pressure Position [Right Arm] Supine 02 Sat by Pulse Oximetry 84 L 90 L 85 L Oxygen Delivery Method Nasal Cannula Nasal Cannula Nasal Cannula Oxygen Flow Rate (LPM) 2 4 4 - Lab Data Lab results reviewed: Yes: I reviewed the patient's lab results. Lab Results 10/18/19 21:04: WBC 12.2 H, RBC 4.36 L, Hgb 10.0 L, Hct 34.7 L, MCV 79.7 L, MCH 23.0 L, MCHC 28.8 L, RDW 16.5, Plt Count 388, MPV 8.6, Neut % (Auto) 86.9 H, Lymph % (Auto) 7.7 L, Winston % (Auto) 3.5, Eos % (Auto) 1.1, Baso % (Auto) 0.9, Neut # (Auto) 10.6 H, Lymph # (Auto) 0.9, Winston # (Auto) 0.4, Eos # (Auto) 0.1, Baso # (Auto) 0.1, Total Counted 100, Neutrophils % (Manual) 89 H, Lymphocytes % (Manual) 7 L, Monocytes % (Manual) 3, Eosinophils % (Manual) 1, Platelet Estimate Normal, RBC Morphology Not Reportable, Microcytosis 1+, Ovalocytes 1+, Stomatocytes 1+, ESR 93 H 10/18/19 21:04: Sodium 133 L, Potassium 4.1, Chloride 92 L, Carbon Dioxide 29, Anion Gap 16.1 H, BUN 33 H, Creatinine 2.00 H, Estimated Creat Clear 30, Estimated GFR 33 L, Est GFR ( Amer) 39 L, Glucose 299 H, Calcium 8.2 L, Total Bilirubin 0.6, AST 24, ALT 19, Alkaline Phosphatase 78, C-Reactive Protein 117.9 H, NT-Pro-B Natriuret Pep 1290 H, Total Protein 6.8, Albumin 3.4 L, Globulin 3.4 H, Albumin/Globulin Ratio 1.0 L 10/18/19 21:04: Lactate 2.4 H 10/18/19 21:29: Specimen Source Left radial, O2 % 4lpm, ABG pH 7.44, ABG pCO2 38.1, ABG pO2 51.9 L, ABG HCO3 25.5, ABG Total CO2 26.7, ABG O2 Saturation 86 L*, ABG Base Excess 1.4, Trace Test Acceptable Result diagrams: 10/18/19 21:04 10/18/19 21:04 Orders (Tests/Meds): ORDERS Category Date Time Status XR chest portable Stat Exams 10/18/19 21:25 Taken Blood Culture Stat Micro 10/18/19 21:31 Received ABG [Arterial Blood Gas] Stat RT 10/18/19 21:31 Ordered - Radiology Data #1 Image(s): Chest Image Reviewed: Yes I reviewed the patient's radiology image Preliminary Findings: Abnormal (cm) - ECG Data Tracing #1 Normal Sinus Rhythm: Yes Ischemic changes: non-specific ST-T wave changes - Physician Consults Physician Consulted: guy Reason -: Admission Resp/SOB HPI - General Chief Complaint: Shortness of Breath/Dyspnea Stated Complaint: SOA Time Seen by Provider: 10/18/19 21:25 Mode of Arrival: EMS Source of Information: Patient, EMS, Medical Record Limitations: Physical Limitations Description of Symptoms (Recalled from ER Triage Doc. by RN): Pt had Pacemaker pl
[2019-10-18 21:32] LABS: ABG Base Excess 1.4 mmol/L (-2.4-2.3); ABG HCO3 25.5 mmhg (22.0-26.0); ABG Oxygen Saturation 86 % (90-100); ABG PCO2 38.1 mmhg (35.0-45.0); ABG PH 7.44 mmol/L (7.35-7.45); ABG PO2 51.9 mmhg (80-100); ABG TCO2 26.7 mmhg (23-27)
[2019-10-18 21:36] LABS: Allen's Test Acceptable; Oxygen 4LPM %; Source Left Radial
[2019-10-18 21:41] LABS: Basophils # 0.1 K/mm3 (0-0.2); Basophils % 0.9 % (0.1-2.0); Eosinophils # 0.1 K/mm3 (0.0-0.4); Eosinophils % 1.1 % (0.1-12.0); Hematocrit 34.7 % (42.0-52.0); Lymphocytes # 0.9 K/mm3 (0.7-4.5); Lymphocytes % 7.7 % (10-50); Mean Corpuscular HGB Conc 28.8 g/dL (31.8-35.4); Mean Corpuscular Volume 79.7 fl (80-94); Mean Platelet Volume 8.6 fl (7.4-10.4); Monocytes # 0.4 K/mm3 (0.1-1.0); Monocytes % 3.5 % (1.7-9.3); Neutrophils # 10.6 K/mm3 (1.8-7.8); Neutrophils % 86.9 % (37.0-80.0); Platelet Count 388 K/mm3 (142-424); Red Blood Count 4.36 M/mm3 (4.60-6.20); Red Cell Distribution Width 16.5 % (11.5-17.5); White Blood Count 12.2 K/mm3 (4.8-10.8)
[2019-10-18 21:42] LABS: MANUAL DIFFERENTIAL MANUAL DIFFERENTIAL (MANUAL DIFF)
--- NOTE | 2019-10-18 21:42 | PC.NURSE ---
I spoke with Pt and he gave permission to give information to his son via phone
[2019-10-18 21:43] LABS: Chloride 92 mmol/L (98-107); Potassium 4.1 mmoL/L (3.5-5.1); Sodium 133 mmol/L (136-145)
[2019-10-18 21:45] LABS: Alanine Aminotransferase 19 U/L (12-78); Alkaline Phosphatase 78 U/L (38-126); Aspartate Amino Transferase 24 U/L (17-59); Bilirubin,Total 0.6 mg/dl (0.2-1.3); Blood Urea Nitrogen 33 mg/dl (9-20); Creatinine Clearance Estimated 30 mL/min (50-200); Estimated Glomerular Filt Rate 33 ml/min (>60); GFR (African American) 39 ML/MIN (>60)
[2019-10-18 21:46] LABS: Albumin Level 3.4 g/dl (3.5-5.0); Anion Gap 16.1 mEq/L (5-15); Calcium 8.2 mg/dl (8.4-10.2); Carbon Dioxide 29 mmol/L (22.0-30.0); Globulin 3.4 g/dL (1.3-3.2); Glucose 299 mg/dl (74-100); Total Protein,Serum 6.8 g/dl (6.3-8.2)
[2019-10-18 21:48] LABS: Lactic Acid 2.4 mmol/L (0.7-2.1)
[2019-10-18 21:51] LABS: C-Reactive Protein 117.9 mg/L (0-4)
[2019-10-18 21:57] LABS: NT Pro Brain Natriuretic Pep. 1290 pg/mL (0-450)
[2019-10-18 22:03] VITALS: BP 99/49; PULSE 94; RESP 18; O2SAT 90
[2019-10-18 22:06] LABS: Erythrocyte Sedimentation Rate 93 mm/hr (0-20)
[2019-10-18 22:13] LABS: Eosinophils % 1 % (0-3); Lymphocytes % 7 % (10-50); Microcytosis 1+; Monocytes % 3 % (2-9); Neutrophils % 89 % (42-76); Ovalocytes 1+; Platelet Estimate Normal; Stomatocytes 1+; Total Cells Counted 100
[2019-10-18 22:18] VITALS: BP 112/58; PULSE 94; RESP 18; O2SAT 85
--- NOTE | 2019-10-18 22:41 | PC.NURSE ---
spoke with diane from pharmacy for a vanc dosing. he recommended a loading dose of 2.5g vanc tonight in a 500ml bag to be infused over 2 hours and then 2g vanc in 250ml NS every 24 hours after loading dose starting tomorrow night 10/18.
--- NOTE | 2019-10-18 22:44 | PC.NURSE ---
I called pt's son and updated him on pt admission
[2019-10-18 22:46] VITALS: BP 115/59; PULSE 95; RESP 18; O2SAT 86
--- NOTE | 2019-10-18 22:51 | PC.NURSE ---
Spoke with Blaise in Pharmacy for dosing on Lovenox
[2019-10-18 23:42] VITALS: BP 118/67; PULSE 94; RESP 18; TEMP 37.1; O2SAT 92
[2019-10-18 23:47] VITALS: BP 157/75; PULSE 99; RESP 20; TEMP 36.8; O2SAT 90; BMI 42.7
--- NOTE | 2019-10-19 00:35 | PC.NURSE ---
PT ARRIVED TO THE FLOOR VIA STRETCHER FROM THE ED AT [id number].
[2019-10-19 00:53] LABS: Reflex Lactic Add Lactic Reflex
[2019-10-19 01:50] LABS: Lactic Acid Follow Up (RFLX 1) 1.5 mmol/L (0.7-2.1)
[2019-10-19 03:00] LABS: Microscopic, Urine URINE MICROSCOPIC (MICROSCOPIC)
[2019-10-19 03:08] LABS: Appearance,Urine CLEAR (Clear); Bilirubin,Urine Negative (Negative); Blood, Urine Negative (Negative); Color,Urine YELLOW (Yellow); Glucose,Urine (UA) TRACE (Negative); Ketones,Urine Negative (Negative); Leukocyte Esterase,Urine Negative (Negative); Nitrate,Urine Negative (Negative); PH,Urine 5.5 (5.0-8.5); Protein,Urine TRACE (Negative); Specific Gravity, Urine >= 1.030 (1.005-1.030); Urobilinogen,Urine 0.2 EU/dl (0.2)
[2019-10-19 03:14] LABS: Bacteria,Urine 1+ /lpf; Mucus,Urine 1+ /lpf
[2019-10-19 03:42] VITALS: BP 129/55; PULSE 81; RESP 20; TEMP 37.2; O2SAT 96
--- NOTE | 2019-10-19 04:05 | PC.NURSE ---
NO C/O N/V/D, OR DIZZINESS. PT. REPORTS BASELINE SOA WITH MOVEMENT AND CHRONIC BACK PAIN 11/06; TX WITH OXYCODONE PER AUG; EFFECTIVENESS NOTED. PT. REPORTS FEELING MUCH BETTER . PT. DOES NOT WANT TO BE IN THE BED AND WANTS TO STAY IN THE CHAIR; EDUCATED PT. ON SHIFTING WEIGHT WHILE IN CHAIR; PT. DEMONSTRATION CORRECTLY USING PILLOWS TO REPOSITION.
[2019-10-19 05:04] VITALS: BMI 42.5
[2019-10-19 05:44] LABS: POC Glucose,Bedside 289 (70-110)
[2019-10-19 06:35] LABS: Basophils # 0.1 K/mm3 (0-0.2); Basophils % 0.4 % (0.1-2.0); Eosinophils # 0.2 K/mm3 (0.0-0.4); Eosinophils % 1.4 % (0.1-12.0); Hematocrit 31.8 % (42.0-52.0); Hemoglobin 9.2 g/dL (14.1-18.0); Lymphocytes # 1.3 K/mm3 (0.7-4.5); Lymphocytes % 10.8 % (10-50); Mean Corpuscular HGB Conc 28.9 g/dL (31.8-35.4); Mean Corpuscular Volume 79.5 fl (80-94); Mean Platelet Volume 8.9 fl (7.4-10.4); Monocytes # 0.4 K/mm3 (0.1-1.0); Monocytes % 3.6 % (1.7-9.3); Neutrophils # 9.8 K/mm3 (1.8-7.8); Neutrophils % 83.8 % (37.0-80.0); Platelet Count 334 K/mm3 (142-424); Red Blood Count 4.01 M/mm3 (4.60-6.20); Red Cell Distribution Width 16.8 % (11.5-17.5); White Blood Count 11.7 K/mm3 (4.8-10.8)
[2019-10-19 06:40] LABS: Chloride 93 mmol/L (98-107); Potassium 4.1 mmoL/L (3.5-5.1); Sodium 131 mmol/L (136-145)
[2019-10-19 06:43] LABS: Anion Gap 14.1 mEq/L (5-15); Blood Urea Nitrogen 33 mg/dl (9-20); Carbon Dioxide 28 mmol/L (22.0-30.0); Creatinine Clearance Estimated 30 mL/min (50-200); Estimated Glomerular Filt Rate 33 ml/min (>60); GFR (African American) 39 ML/MIN (>60)
[2019-10-19 06:44] LABS: Calcium 8.7 mg/dl (8.4-10.2); Glucose 290 mg/dl (74-100); Magnesium 2.2 mg/dl (1.6-2.3)
--- NOTE | 2019-10-19 07:23 | HMH.HP ---
*Admission Date: 10/18/19 *Chief complaint: Shortness of breath with exertion *History of present illness: 79-year-old male with history of heart failure presented to the emergency department with progressive dyspnea on exertion over the last 3 days. Patient reports that normally he could walk 100 feet with brief stops without getting significantly short of breath. Over the last 3 days he could only walk about 25 feet before he became short of breath. Patient sees local cardiology and had been in their clinic last week and had admitted to not being on his diuretics due to recent travel. He reports since that appointment last Friday he has been taking his medicines regularly and feels like he is gradually losing fluid. Patient had a pacemaker approximately 2 weeks ago and reports some fever after his pacemaker implantation but no complaints of pain around the pacemaker site. Patient has a history of chronic venous insufficiency and lymphedema. Patient has had lower extremity wounds in the past but reports no pain in the legs that have him suspicious for a wound. On evaluation in the emergency department patient was hypoxemic on a blood gas. Chest x-ray did not reveal an infiltrate. White blood cell count was mildly elevated and this was suspected to be due to developing cellulitis in the lower extremities. Patient was admitted and placed on IV vancomycin and Rocephin. This morning the patient reports feeling significantly better. However he continues to wear the nasal cannula which is supplying oxygen at 4 L/min. Patient has oxygen at home set to 2 L/min which he uses intermittently but he admits he does not want to become dependent on it. He denies chest pain, cough. [facility] History I have reviewed the patient's past medical history: Yes Medical History: Reports:: Asthma, Cardiomyopathy, Congestive Heart Failure, Congenital Heart Disease, Coronary Artery Disease, Diabetes Mellitus Type 2, Gastroesophageal Reflux Disease(GERD), Hyperlipidemia, Hypertension, Internal Pacemaker, Lung Disease, Myocardial Infarction, Palpitations, Renal Disease, Renal Insufficiency, Seizures Denies:: Cancer, Diabetes Mellitus Type 1, MRSA *Have you ever received a pneumonia vaccine?: Yes *Have you received a flu vaccine this season?: No Other Medical History: Reports: Anemia, Arthritis, Hypothyroidism, Other. Denies: Blood Transfusion Reaction Laterality Cases: Right: Total Hip Replacement Other Surgeries: Yes: Appendectomy, Cardiac Catheterization, Colonoscopy, Coronary Stent, EGD, Pacemaker, Other Amputation: No Fractures: No - *Social History Educational Level: Attended High School Smoking Status: Never smoker Tobacco Type: cigarettes Alcohol Intake: never Alcohol Intake Frequency:: other Substance Use Type: denies use *Occupational Status:: retired Housing: house Household Members: spouse *Travel in the last 8 weeks: None Family Hx:: Coronary Artery Disease, Heart Attack, Hyperlipidemia, Hypertension, Stroke Review of Systems - Constitutional Reports body ache(s), Reports chills, Reports headache(s), Denies fever(s), Denies weakness - *Cardiovascular Denies chest pain, Denies chest pain at rest - *Respiratory Reports shortness of breath, Reports shortness of breath with activity, Denies change in phlegm color, Denies chest congestion, Denies cough - *Gastrointestinal Denies abdominal pain - *Genitourinary Denies difficulty urinating - *Musculoskeletal Denies abnormal walking - *Neurologic Denies localized weakness Meds Home Medications Medication Instructions Recorded Confirmed Type Oxycodone HCl [Oxycodone (IR) 30mg 30 mg PO Q6HP PRN 07/17/17 10/18/19 History Tab] Umeclidinium Brm/Vilanterol Tr 1 each IH BID 07/17/17 10/18/19 History [Anoro Ellipta 62.5-25 Mcg INH] methocarbamoL [Methocarbamol 500mg 500 mg PO BID 07/17/17 10/18/19 History Tablet] Albuterol Sulfate [Albuterol 2.5 mg IH QID 10/05/17 10/18/19 History
--- NOTE | 2019-10-19 07:32 | HMH.PHAVTE ---
[facility] [place] Pharmacy VTE Monitoring - Patient Demographics Admission date: 10/18/19 Report Date: 10/19/19 Time: 07:32 Allergies/Adverse Reactions: Patient Allergies morphine Adverse Reaction (Verified 10/13/19 13:00) Height: 1.73 m Weight: 127.488 kg Patient Problems: Current Active Problems Cellulitis of both lower extremities (Acute) Severe sepsis with acute organ dysfunction (Acute) Acute on chronic congestive heart failure with left ventricular diastolic dysfunction (Acute) Acute on chronic congestive heart failure with right ventricular diastolic dysfunction (Acute) Type 2 diabetes mellitus (Chronic) Morbid obesity (Chronic) Chronic kidney disease, stage 3 (Chronic) - VTE Risk Labs: VTE Related Lab Results Hgb 9.2 g/dL (14.1-18.0) L 10/19/19 06:18 Hct 31.8 % (42.0-52.0) L 10/19/19 06:18 Plt Count 334 K/mm3 (142-424) 10/19/19 06:18 BUN 33 mg/dl (9-20) H 10/19/19 06:18 Creatinine 2.00 mg/dl (0.66-1.25) H 10/19/19 06:18 Estimated Creat Clear 30 mL/min (50-200) 10/19/19 06:18 VTE Score: 8 VTE Risk Level: Moderate Risk - Prophylaxis VTE Prophylaxis Ordered?: Yes Types of VTE Prophylaxis: TEDS Knee High Location of Applied Device: Bilateral Lower Extremeties - VTE Diagnosis Confirmed Treatment or plan recommended: Continue Current Treatment
[2019-10-19 07:58] VITALS: BP 118/57; PULSE 87; RESP 18; TEMP 36.4; O2SAT 92
[2019-10-19 08:00] VITALS: PULSE 87; RESP 18; O2SAT 92
--- NOTE | 2019-10-19 08:23 | HMH.PHACONS ---
- Pharmacy Consult Date: 10/19/19 Time: 08:23 Referring provider: DR. MORALES Reason for Consult:: VANCOMYCIN DOSING Allergies and ADEs:: Allergies Allergy/AdvReac Type Severity Reaction Status Date / Time morphine AdvReac Verified 10/13/19 13:00 Home Medications:: Home Medications Medication Instructions Recorded Confirmed Type Oxycodone HCl [Oxycodone (IR) 30mg 30 mg PO Q6HP PRN 07/17/17 10/18/19 History Tab] Umeclidinium Brm/Vilanterol Tr 1 each IH BID 07/17/17 10/18/19 History [Anoro Ellipta 62.5-25 Mcg INH] methocarbamoL [Methocarbamol 500mg 500 mg PO BID 07/17/17 10/18/19 History Tablet] Albuterol Sulfate [Albuterol 2.5 mg IH QID 10/05/17 10/18/19 History Sulfate 2.5mg/0.5ml Neb] Clopidogrel Bisulfate [Plavix 75mg 75 mg PO DAILY 03/23/18 10/18/19 History Tab] insulin human U-100 NPH-regulr 90 unit SQ TID ml 05/11/18 10/18/19 History 70-30 mix 100 unit/mL subcutaneous susp aspirin 81 mg tablet,delayed 81 mg PO DAILY 05/26/18 10/18/19 History release furosemide 80 mg tablet 80 mg PO DAILY tab 07/14/18 10/18/19 History Ferrous Sulfate [Iron] 325 mg PO BID 03/23/19 10/18/19 History Isosorbide Mononitrate [Imdur 30mg 30 mg PO DAILY 03/23/19 10/18/19 History ER tablet] Levothyroxine Sodium 50 mcg PO DAILY 03/23/19 10/18/19 History [Levothyroxine 50mcg (0.05mg) Tab] Amlodipine Besylate 10 mg PO DAILY 03/24/19 10/18/19 History Ipratropium [place] [Atrovent 0.5 mg IH QID 03/24/19 10/18/19 History 0.5mg/2.5mL neb] bisoprolol fumarate 5 mg tablet 5 mg PO DAILY #30 tab 04/08/19 10/18/19 Rx Spironolactone [Spironolactone 25 mg PO BID 07/09/19 10/18/19 History 25mg Tablet] cholecalciferol (vitamin D3) 1,250 1,250 mcg PO QWEEK cap 09/28/19 10/18/19 History mcg (50,000 unit) capsule gabapentin 800 mg tablet 800 mg PO HS tab 09/28/19 10/18/19 History lisinopril 40 mg tablet 40 mg PO DAILY tab 09/28/19 10/18/19 History potassium chloride 20 mEq 20 meq PO DAILY tab 09/28/19 10/18/19 History tablet,extended release pravastatin 20 mg tablet 20 mg PO DAILY tab 09/28/19 10/18/19 History Height: 1.73 m Weight: 127.488 kg Laboratory Results:: Laboratory Results - last 24 hr 10/18/19 21:04: WBC 12.2 H, RBC 4.36 L, Hgb 10.0 L, Hct 34.7 L, MCV 79.7 L, MCH 23.0 L, MCHC 28.8 L, RDW 16.5, Plt Count 388, MPV 8.6, Neut % (Auto) 86.9 H, Lymph % (Auto) 7.7 L, Ransom % (Auto) 3.5, Eos % (Auto) 1.1, Baso % (Auto) 0.9, Neut # (Auto) 10.6 H, Lymph # (Auto) 0.9, Ransom # (Auto) 0.4, Eos # (Auto) 0.1, Baso # (Auto) 0.1, Total Counted 100, Neutrophils % (Manual) 89 H, Lymphocytes % (Manual) 7 L, Monocytes % (Manual) 3, Eosinophils % (Manual) 1, Platelet Estimate Normal, RBC Morphology Not Reportable, Microcytosis 1+, Ovalocytes 1+, Stomatocytes 1+, ESR 93 H 10/18/19 21:04: Sodium 133 L, Potassium 4.1, Chloride 92 L, Carbon Dioxide 29, Anion Gap 16.1 H, BUN 33 H, Creatinine 2.00 H, Estimated Creat Clear 30, Estimated GFR 33 L, Est GFR ( Amer) 39 L, Glucose 299 H, Calcium 8.2 L, Total Bilirubin 0.6, AST 24, ALT 19, Alkaline Phosphatase 78, C-Reactive Protein 117.9 H, NT-Pro-B Natriuret Pep 1290 H, Total Protein 6.8, Albumin 3.4 L, Globulin 3.4 H, Albumin/Globulin Ratio 1.0 L 10/18/19 21:04: Lactate 2.4 H 10/18/19 21:29: Specimen Source Left radial, O2 % 4lpm, ABG pH 7.44, ABG pCO2 38.1, ABG pO2 51.9 L, ABG HCO3 25.5, ABG Total CO2 26.7, ABG O2 Saturation 86 L*, ABG Base Excess 1.4, Trace Test Acceptable 10/19/19 01:15: Lactate 1.5 10/19/19 02:35: Urine Color Yellow, Urine Appearance Clear, Urine pH 5.5, Ur Specific [place] >= 1.030, Urine Protein Trace, Urine Glucose (UA) Trace, Urine Ketones Negative, Urine Blood Negative, Urine Nitrate Negative, Urine Bilirubin Negative, Urine Urobilinogen 0.2, Ur Leukocyte Esterase Negative, Urine WBC 3-5, Ur Squamous Epith Cells 3-5, Urine Bacteria 1+, Urine Mucus 1+ 10/19/19 05:32: POC Glucose 289 H 10/19/19 06:18: WBC 11.7 H, RBC 4.01 L, Hgb 9.2 L, Hct 3
--- NOTE | 2019-10-19 10:56 | HMH.PHAINT ---
MEDICATION RECONCILIATION COMPLETE. TRIED TO OBTAIN COMPLETE MEDICATION LIST BUT PATIENT SEES MULTIPLE PROVIDERS ACROSS [place] AND [place] UTILIZING SEVERAL PHARMACIES. SPOKE WITH THE PATIENT TO CLARIFY BUT HE WAS UNABLE TO PROVIDE MANY ANSWERS. INSULIN DOSE PER PHARMACY AND PHYSICIAN OFFICE WAS 60 UNITS TID, BUT PATIENT INSISTED HE WAS ON 90 UNITS TID AND THAT THE PROVIDER CALLED HIM LAST WEEK AND DECREASED THE DOSE TO 70 UNITS TID.
[2019-10-19 11:44] LABS: POC Glucose,Bedside 320 (70-110)
--- NOTE | 2019-10-19 14:09 | PC.NURSE ---
Notified Dr Ulloa of patients positive blood culture
--- NOTE | 2019-10-19 15:14 | PC.NURSE ---
He has been up to the chair all shift. O2 sats have been in lower 90's on 4L NC. He has denied any chest pain or being sob. He has had 600ml of urine out thus far. IV to left hand is patent and infusing NS @ 50. No s/s of infection or infiltration. Pt complained of jessi horses in his legs and rt arm this am. He requested tonic water w/lemon juice; Tonic water was not available, so his next choice was tums. Dr Ulloa notified. No other complaints verbalized. Will continue to monitor.
[2019-10-19 15:40] VITALS: BP 80/44; PULSE 73; RESP 17; TEMP 36.7; O2SAT 95
--- NOTE | 2019-10-19 16:00 | PC.NURSE ---
Addendum entered by Tammie Bonilla RN 10/19/19 18:14: Upon questioning patient he states he urinated this am into his urinal; There is scant amount of evidence of urine in his urinal although there is none documented. He is unaware of who disposed of it. Addendum entered by Tammie Bonilla RN 10/19/19 16:00: Pt's bp running low; pt hasn't had any urine output as of yet. Dr Ulloa notified Original Note: He has been up to the chair all shift. O2 sats have been in lower 90's on 4L NC. He has denied any chest pain or being sob. IV to left hand is patent and infusing NS @ 50. No s/s of infection or infiltration. Pt complained of jessi horses in his legs and rt arm this am. He requested tonic water w/lemon juice; Tonic water was not available, so his next choice was tums. Dr Ulloa notified. No other complaints verbalized. Will continue to monitor.
[2019-10-19 16:43] LABS: POC Glucose,Bedside 312 (70-110)
[2019-10-19 20:00] VITALS: BP 100/49; PULSE 72; RESP 17; TEMP 37; O2SAT 93
--- NOTE | 2019-10-19 22:11 | PC.NURSE ---
Pt unhooked IV to go to bathroom. This RN attempted to flush IV and it had occluded. Will attempt to reestablish IV access. Pt was educated on ringing out for assistance and verbally states understanding. Call light in reach.
--- NOTE | 2019-10-19 22:47 | PC.NURSE ---
New IV access in right hand (see insertion intervention)
[2019-10-20] VITALS (9 sets, daily range): BP systolic 92–115; BP diastolic 52–69; PULSE 65–76; RESP 18–20; TEMP 36.4–36.6; O2SAT 86–96; BMI 43.4
[2019-10-20 01:08] LABS: POC Glucose,Bedside 314 (70-110)
--- NOTE | 2019-10-20 05:18 | PC.NURSE ---
Consent for photos signed by pt and photos of BLE placed on chart. Pt has been up to chair the entire shift. Pt refused when asked if he wanted back to bed or his legs elevated. This RN has attempted to wean O2 during shift, currently on 2LNC as of 0500 w/ O2 sat of 92%. Fluid restriction remains in place w/ intake this shift of 490ml. Pt did have 1 unmeasured void and bm this shift. No reported difficulties. Only reported complaint this shift has been back pain, treated per AUG w/ relief.
--- NOTE | 2019-10-20 05:48 | PC.NURSE ---
RA sat of 86% at rest obtained at this time. 2LNC applied, pt has no reported complaints
[2019-10-20 05:53] LABS: POC Glucose,Bedside 296 (70-110)
[2019-10-20 06:28] LABS: Basophils % 0.3 % (0.1-2.0); Eosinophils # 0.3 K/mm3 (0.0-0.4); Eosinophils % 2.4 % (0.1-12.0); Hemoglobin 9.2 g/dL (14.1-18.0); Lymphocytes % 7.2 % (10-50); Mean Corpuscular HGB Conc 29.7 g/dL (31.8-35.4); Mean Corpuscular Hemoglobin 23.1 pg (27.0-31.2); Mean Corpuscular Volume 77.9 fl (80-94); Monocytes # 0.5 K/mm3 (0.1-1.0); Monocytes % 3.8 % (1.7-9.3); Neutrophils # 11.5 K/mm3 (1.8-7.8); Neutrophils % 86.3 % (37.0-80.0); Platelet Count 327 K/mm3 (142-424); Red Blood Count 3.98 M/mm3 (4.60-6.20); Red Cell Distribution Width 16.5 % (11.5-17.5); White Blood Count 13.4 K/mm3 (4.8-10.8)
[2019-10-20 06:31] LABS: MANUAL DIFFERENTIAL MANUAL DIFFERENTIAL (MANUAL DIFF)
[2019-10-20 06:33] LABS: Chloride 94 mmol/L (98-107); Potassium 4.1 mmoL/L (3.5-5.1); Sodium 130 mmol/L (136-145)
[2019-10-20 06:36] LABS: Anion Gap 15.1 mEq/L (5-15); Blood Urea Nitrogen 48 mg/dl (9-20); Calcium 8.1 mg/dl (8.4-10.2); Carbon Dioxide 25 mmol/L (22.0-30.0); Creatinine Clearance Estimated 18 mL/min (50-200); Estimated Glomerular Filt Rate 18 ml/min (>60); GFR (African American) 21 ML/MIN (>60); Glucose 284 mg/dl (74-100)
[2019-10-20 06:37] LABS: Magnesium 2.3 mg/dl (1.6-2.3)
--- NOTE | 2019-10-20 07:49 | HMH.ACPN2 ---
Internal Medicine - PN: Subj *Date: 10/20/19 *Time: 07:49 Interval history: Patient has no new complaints this morning. He continues to feel short of breath although not as severe as the dyspnea that triggered his arrival to the emergency department. Blood cultures appear to be growing an enterococcus species. Patient did not have any fevers overnight. Patient did become hypotensive yesterday afternoon and his spironolactone was held. His blood pressure has responded this morning. Patient has voided very little. He does report that he has been taking his medicines as directed at home for at least a few days prior to his admission Exam Vital signs and Labs for Last 24 Hours: Temp Pulse Resp BP Pulse Ox 97.9 F 71 18 115/52 L 86 L 10/20/19 04:00 10/20/19 04:00 10/20/19 04:00 10/20/19 04:00 10/20/19 05:48 Laboratory Results - last 24 hr 10/19/19 11:32: POC Glucose 320 H* 10/19/19 16:22: POC Glucose 312 H* 10/19/19 20:11: POC Glucose 314 H* 10/20/19 05:46: POC Glucose 296 H 10/20/19 06:03: WBC 13.4 H, RBC 3.98 L, Hgb 9.2 L, Hct 31.0 L, MCV 77.9 L, MCH 23.1 L, MCHC 29.7 L, RDW 16.5, Plt Count 327, MPV 9.0, Neut % (Auto) 86.3 H, Lymph % (Auto) 7.2 L, Drew % (Auto) 3.8, Eos % (Auto) 2.4, Baso % (Auto) 0.3, Neut # (Auto) 11.5 H, Lymph # (Auto) 1.0, Drew # (Auto) 0.5, Eos # (Auto) 0.3, Baso # (Auto) 0.0 10/20/19 06:03: Sodium 130 L, Potassium 4.1, Chloride 94 L, Carbon Dioxide 25, Anion Gap 15.1 H, BUN 48 H D, Creatinine 3.40 H D, Estimated Creat Clear 18, Estimated GFR 18 L*, Est GFR ( Amer) 21 L D, Glucose 284 H, Calcium 8.1 L, Magnesium 2.3 I & O for Last 24 hours: Intake & Output 10/17/19 10/18/19 10/19/19 10/20/19 11:59 11:59 11:59 11:59 Intake Total 807 / 807 1090 / 1090 Output Total Balance 807 / 807 1089 / 1089 Weight 281 lb 1.007 oz 286 lb 5 oz Microbiology Reports for the Last 24 Hours: Microbiology 10/18/19 21:31 Blood Blood Culture - Preliminary 10/18/19 21:31 Blood Blood Culture - Preliminary - Constitutional no acute distress - *Routine HEENT Exam Head: Present: normocephalic ENT: Present: mucous membranes moist - *Routine Respiratory Exam Present: rales (Bibasilar) - *Routine Cardiovascular Exam Present: irregular rhythm - *Routine Abdominal Exam Present: soft Assessment and Plan (1) Acute on chronic congestive heart failure with left ventricular diastolic dysfunction Current visit: Yes Status: Acute Category: Medical Code(s): I50.33 - Acute on chronic diastolic (congestive) heart failure (2) Acute on chronic congestive heart failure with right ventricular diastolic dysfunction Current visit: Yes Status: Acute Category: Medical Code(s): I50.82 - Biventricular heart failure; I50.33 - Acute on chronic diastolic (congestive) heart failure (3) Chronic venous stasis Current visit: No Status: Acute Category: Medical Code(s): I87.8 - Other specified disorders of veins (4) Sepsis Current visit: No Status: Acute Qualifiers: Sepsis acute organ dysfunction status: with acute organ dysfunction Severe sepsis acute organ dysfunction type: acute respiratory failure Category: Medical Code(s): A41.9 - Sepsis, unspecified organism (5) Uncontrolled diabetes mellitus Current visit: No Status: Acute Category: Medical Code(s): E11.65 - Type 2 diabetes mellitus with hyperglycemia (6) Cardiomyopathy Current visit: No Status: Chronic Qualifiers: Cardiomyopathy type: ischemic Qualified Code(s): I25.5 - Ischemic cardiomyopathy Category: Medical Code(s): I42.9 - Cardiomyopathy, unspecified (7) HHD (hypertensive heart disease) Current visit: No Status: Chronic Qualifiers: Heart failure presence: unspecified whether heart failure present Qualified Code(s): I11.9 - Hypertensive heart disease without heart failure Category: Medical Code(s): I11.9 - Hypertensive heart disease witho
[2019-10-20 10:24] LABS: Hypochromasia 2+; Lymphocytes % 6 % (10-50); Macrocytosis 1+; Monocytes % 8 % (2-9); Neutrophils % 86 % (42-76); Platelet Estimate Normal; Total Cells Counted 100
[2019-10-20 11:58] LABS: POC Glucose,Bedside 281 (70-110)
[2019-10-20 12:56] LABS: Vancomycin,Trough 12.7 ug/mL (5.0-10.0)
--- NOTE | 2019-10-20 13:13 | HMH.PHACONS ---
- Pharmacy Consult Date: 10/20/19 Time: 13:13 Referring provider: DR. MORALES Reason for Consult:: VANCOMYCIN TROUGH LEVEL AND INTERVAL CHANGE Allergies and ADEs:: Allergies Allergy/AdvReac Type Severity Reaction Status Date / Time morphine AdvReac Verified 10/13/19 13:00 Home Medications:: Home Medications Medication Instructions Recorded Confirmed Type methocarbamoL [Methocarbamol 500mg 500 mg PO BID 07/17/17 10/19/19 History Tablet] Albuterol Sulfate [Albuterol 2.5 mg IH QID 10/05/17 10/19/19 History Sulfate 2.5mg/0.5ml Neb] Clopidogrel Bisulfate [Plavix 75mg 75 mg PO DAILY 03/23/18 10/19/19 History Tab] insulin human U-100 NPH-regulr 90 unit SQ TID ml 05/11/18 10/19/19 History 70-30 mix 100 unit/mL subcutaneous susp aspirin 81 mg tablet,delayed 81 mg PO DAILY 05/26/18 10/19/19 History release furosemide 80 mg tablet 80 mg PO DAILY tab 07/14/18 10/19/19 History Ferrous Sulfate [Iron] 325 mg PO BID 03/23/19 10/19/19 History Isosorbide Mononitrate [Imdur 30mg 30 mg PO DAILY 03/23/19 10/19/19 History ER tablet] Levothyroxine Sodium 50 mcg PO DAILY 03/23/19 10/19/19 History [Levothyroxine 50mcg (0.05mg) Tab] Amlodipine Besylate 10 mg PO DAILY 03/24/19 10/19/19 History Ipratropium [place] [Atrovent 0.5 mg IH QID 03/24/19 10/19/19 History 0.5mg/2.5mL neb] bisoprolol fumarate 5 mg tablet 5 mg PO DAILY #30 tab 04/08/19 10/18/19 Rx Spironolactone [Spironolactone 25 mg PO BID 07/09/19 10/19/19 History 25mg Tablet] cholecalciferol (vitamin D3) 1,250 1,250 mcg PO QWEEK cap 09/28/19 10/19/19 History mcg (50,000 unit) capsule gabapentin 800 mg tablet 800 mg PO QID tab 09/28/19 10/19/19 History lisinopril 40 mg tablet 40 mg PO DAILY tab 09/28/19 10/19/19 History potassium chloride 20 mEq 20 meq PO DAILY tab 09/28/19 10/19/19 History tablet,extended release Albuterol Sulfate [Albuterol HFA 1 - 2 puffs IH Q4-6H PRN 10/19/19 10/19/19 History Inhaler] Atorvastatin Calcium [Atorvastatin 40 mg PO HS 10/19/19 10/19/19 History 40mg Tab] Fluticasone/Vilanterol [Breo 1 inh IH DAILY 10/19/19 10/19/19 History Ellipta 100-25 Mcg INH] Loratadine [Allergy] 10 mg PO DAILY 10/19/19 10/19/19 History Montelukast Sodium [Singulair 10mg 10 mg PO PM 10/19/19 10/19/19 History tablet] Oxycodone HCl 30 mg PO Q6HP PRN 10/20/19 10/20/19 History Height: 1.73 m Weight: 129.869 kg Laboratory Results:: Laboratory Results - last 24 hr 10/19/19 16:22: POC Glucose 312 H* 10/19/19 20:11: POC Glucose 314 H* 10/20/19 05:46: POC Glucose 296 H 10/20/19 06:03: WBC 13.4 H, RBC 3.98 L, Hgb 9.2 L, Hct 31.0 L, MCV 77.9 L, MCH 23.1 L, MCHC 29.7 L, RDW 16.5, Plt Count 327, MPV 9.0, Neut % (Auto) 86.3 H, Lymph % (Auto) 7.2 L, Webb % (Auto) 3.8, Eos % (Auto) 2.4, Baso % (Auto) 0.3, Neut # (Auto) 11.5 H, Lymph # (Auto) 1.0, Webb # (Auto) 0.5, Eos # (Auto) 0.3, Baso # (Auto) 0.0, Total Counted 100, Neutrophils % (Manual) 86 H, Lymphocytes % (Manual) 6 L, Monocytes % (Manual) 8, Platelet Estimate Normal, Hypochromasia 2+, Macrocytosis 1+ 10/20/19 06:03: Sodium 130 L, Potassium 4.1, Chloride 94 L, Carbon Dioxide 25, Anion Gap 15.1 H, BUN 48 H D, Creatinine 3.40 H D, Estimated Creat Clear 18, Estimated GFR 18 L*, Est GFR ( Amer) 21 L D, Glucose 284 H, Calcium 8.1 L, Magnesium 2.3 10/20/19 10:26: Vancomycin Trough 12.7 H 10/20/19 11:42: POC Glucose 281 H Medical History: Reports:: Asthma, Cardiomyopathy, Congestive Heart Failure, Congenital Heart Disease, Coronary Artery Disease, Diabetes Mellitus Type 2, Gastroesophageal Reflux Disease(GERD), Hyperlipidemia, Hypertension, Internal Pacemaker, Lung Disease, Myocardial Infarction, Palpitations, Renal Disease, Renal Insufficiency, Seizures Denies:: Cancer, Diabetes Mellitus Type 1, MRSA Assessment and Plan (1) Acute on chronic congestive heart failure with left ventricular diastolic dysfunction Current visit: Yes Status: Acute Category: Med
[2019-10-20 16:12] LABS: POC Glucose,Bedside 238 (70-110)
--- NOTE | 2019-10-20 18:42 | PC.NURSE ---
pt reports ambulating to bathroom to urinate and have a bowel movement. educated pt on ringing out for help to bathroom because has expressed concerns about falling.
[2019-10-20 20:12] LABS: POC Glucose,Bedside 323 (70-110)
--- NOTE | 2019-10-21 03:55 | PC.NURSE ---
No acute changes during the night. Pt has c/o back pain x1 and medicated per AUG w/ desired effect. Tolerating 2LNC and no complaints reported other than back pain. Pt continues to sit in chair throughout shift and has been encouraged to ambulate in room and shift weight to prevent skin breakdown. Approximately 0200 after giving pt meds this RN asked pt to attempt to void if he could. Pt was unable to produce any urine. Pt denies any urge to void and no c/o pain or pressure to bladder. Will continue to monitor for distention
[2019-10-21 04:00] VITALS: BP 119/60; PULSE 79; RESP 18; TEMP 36.7; O2SAT 92
[2019-10-21 05:00] VITALS: BMI 43.0
[2019-10-21 06:38] LABS: Basophils # 0.1 K/mm3 (0-0.2); Basophils % 0.7 % (0.1-2.0); Chloride 97 mmol/L (98-107); Eosinophils # 0.3 K/mm3 (0.0-0.4); Eosinophils % 2.2 % (0.1-12.0); Hematocrit 30.4 % (42.0-52.0); Lymphocytes % 7.5 % (10-50); Mean Corpuscular HGB Conc 29.8 g/dL (31.8-35.4); Mean Corpuscular Hemoglobin 23.2 pg (27.0-31.2); Mean Platelet Volume 8.6 fl (7.4-10.4); Monocytes # 0.8 K/mm3 (0.1-1.0); Monocytes % 6.1 % (1.7-9.3); Neutrophils # 11.2 K/mm3 (1.8-7.8); Neutrophils % 83.4 % (37.0-80.0); Platelet Count 318 K/mm3 (142-424); Red Cell Distribution Width 16.6 % (11.5-17.5); Sodium 131 mmol/L (136-145); White Blood Count 13.5 K/mm3 (4.8-10.8)
[2019-10-21 06:41] LABS: Blood Urea Nitrogen 57 mg/dl (9-20); Calcium 7.8 mg/dl (8.4-10.2); Carbon Dioxide 23 mmol/L (22.0-30.0); Creatinine Clearance Estimated 17 mL/min (50-200); Estimated Glomerular Filt Rate 17 ml/min (>60); GFR (African American) 20 ML/MIN (>60); Glucose 254 mg/dl (74-100)
--- NOTE | 2019-10-21 07:11 | HMH.ACPN2 ---
Internal Medicine - PN: Subj *Date: 10/21/19 *Time: 07:11 Interval history: Patient has no complaints this morning. He reports he continues to feel short of breath. He has ambulated very little in the room. Urine output has been very low. Exam Vital signs and Labs for Last 24 Hours: Temp Pulse Resp BP Pulse Ox 98.0 F 79 18 119/60 92 L 10/21/19 04:00 10/21/19 04:00 10/21/19 04:00 10/21/19 04:00 10/21/19 04:00 Laboratory Results - last 24 hr 10/20/19 06:03: Total Counted 100, Neutrophils % (Manual) 86 H, Lymphocytes % (Manual) 6 L, Monocytes % (Manual) 8, Platelet Estimate Normal, Hypochromasia 2+, Macrocytosis 1+ 10/20/19 10:26: Vancomycin Trough 12.7 H 10/20/19 11:42: POC Glucose 281 H 10/20/19 16:03: POC Glucose 238 H 10/20/19 19:54: POC Glucose 323 H* 10/21/19 06:05: WBC 13.5 H, RBC 3.90 L, Hgb 9.0 L, Hct 30.4 L, MCV 78.0 L, MCH 23.2 L, MCHC 29.8 L, RDW 16.6, Plt Count 318, MPV 8.6, Neut % (Auto) 83.4 H, Lymph % (Auto) 7.5 L, [place] % (Auto) 6.1, Eos % (Auto) 2.2, Baso % (Auto) 0.7, Neut # (Auto) 11.2 H, Lymph # (Auto) 1.0, [place] # (Auto) 0.8, Eos # (Auto) 0.3, Baso # (Auto) 0.1 10/21/19 06:05: Sodium 131 L, Potassium 4.0, Chloride 97 L, Carbon Dioxide 23, Anion Gap 15.0, BUN 57 H, Creatinine 3.60 H, Estimated Creat Clear 17, Estimated GFR 17 L*, Est GFR ( Amer) 20 L, Glucose 254 H, Calcium 7.8 L I & O for Last 24 hours: Intake & Output 10/18/19 10/19/19 10/20/19 10/21/19 11:59 11:59 11:59 11:59 Intake Total 807 / 807 1330 / 1330 2342 / 2342 Output Total Balance 807 / 807 1329 / 1329 2342 / 2342 Weight 281 lb 1.007 oz 286 lb 5 oz 284 lb 2.813 oz Microbiology Reports for the Last 24 Hours: Microbiology 10/18/19 21:31 Blood Blood Culture - Preliminary Enterococcus faecalis 10/18/19 21:31 Blood Blood Culture - Preliminary Enterococcus faecalis Narrative: Patient appears unchanged from previous days. Nasal cannula is in place. Lungs reveal bibasilar crackles slightly more prominent on the right than on the left but these are unchanged from yesterday as well. Heart rate is irregular. Abdomen is obese. Lower extremities have thickened nodular skin with chronic venous insufficiency Assessment and Plan (1) Acute on chronic congestive heart failure with left ventricular diastolic dysfunction Current visit: Yes Status: Acute Category: Medical Code(s): I50.33 - Acute on chronic diastolic (congestive) heart failure (2) Acute on chronic congestive heart failure with right ventricular diastolic dysfunction Current visit: Yes Status: Acute Category: Medical Code(s): I50.82 - Biventricular heart failure; I50.33 - Acute on chronic diastolic (congestive) heart failure (3) Chronic venous stasis Current visit: No Status: Acute Category: Medical Code(s): I87.8 - Other specified disorders of veins (4) Sepsis Current visit: No Status: Acute Qualifiers: Sepsis acute organ dysfunction status: with acute organ dysfunction Severe sepsis acute organ dysfunction type: acute renal failure Category: Medical Code(s): A41.9 - Sepsis, unspecified organism (5) Uncontrolled diabetes mellitus Current visit: No Status: Acute Category: Medical Code(s): E11.65 - Type 2 diabetes mellitus with hyperglycemia (6) Cardiomyopathy Current visit: No Status: Chronic Qualifiers: Cardiomyopathy type: ischemic Qualified Code(s): I25.5 - Ischemic cardiomyopathy Category: Medical Code(s): I42.9 - Cardiomyopathy, unspecified (7) HHD (hypertensive heart disease) Current visit: No Status: Chronic Qualifiers: Heart failure presence: unspecified whether heart failure present Qualified Code(s): I11.9 - Hypertensive heart disease without heart failure Category: Medical Code(s): I11.9 - Hypertensive heart disease without heart failure (8) Lymphedema in adult patient [place]
[2019-10-21 08:00] VITALS: BP 107/57; PULSE 75; RESP 20; TEMP 37.2; O2SAT 92
--- NOTE | 2019-10-21 08:07 | HMH.ACPN ---
Internal Medicine - PN: Subj *Date: 10/21/19 *Time: 08:07 Exam Vital signs and Labs for Last 24 Hours: Temp Pulse Resp BP Pulse Ox 98.0 F 79 18 119/60 92 L 10/21/19 04:00 10/21/19 04:00 10/21/19 04:00 10/21/19 04:00 10/21/19 04:00 Laboratory Results - last 24 hr 10/20/19 06:03: Total Counted 100, Neutrophils % (Manual) 86 H, Lymphocytes % (Manual) 6 L, Monocytes % (Manual) 8, Platelet Estimate Normal, Hypochromasia 2+, Macrocytosis 1+ 10/20/19 10:26: Vancomycin Trough 12.7 H 10/20/19 11:42: POC Glucose 281 H 10/20/19 16:03: POC Glucose 238 H 10/20/19 19:54: POC Glucose 323 H* 10/21/19 06:05: WBC 13.5 H, RBC 3.90 L, Hgb 9.0 L, Hct 30.4 L, MCV 78.0 L, MCH 23.2 L, MCHC 29.8 L, RDW 16.6, Plt Count 318, MPV 8.6, Neut % (Auto) 83.4 H, Lymph % (Auto) 7.5 L, [place] % (Auto) 6.1, Eos % (Auto) 2.2, Baso % (Auto) 0.7, Neut # (Auto) 11.2 H, Lymph # (Auto) 1.0, [place] # (Auto) 0.8, Eos # (Auto) 0.3, Baso # (Auto) 0.1 10/21/19 06:05: Sodium 131 L, Potassium 4.0, Chloride 97 L, Carbon Dioxide 23, Anion Gap 15.0, BUN 57 H, Creatinine 3.60 H, Estimated Creat Clear 17, Estimated GFR 17 L*, Est GFR ( Amer) 20 L, Glucose 254 H, Calcium 7.8 L I & O for Last 24 hours: Intake & Output 10/18/19 10/19/19 10/20/19 10/21/19 23:59 23:59 23:59 23:59 Intake Total 1262 / 1382 2477 / 2597 715 / 715 Output Total Balance 1261 / 1381 2477 / 2597 715 / 715 Weight 127.488 kg 127.488 kg 130 kg 128.9 kg Microbiology Reports for the Last 24 Hours: Microbiology 10/18/19 21:31 Blood Blood Culture - Preliminary Enterococcus faecalis 10/18/19 21:31 Blood Blood Culture - Preliminary Enterococcus faecalis Assessment and Plan (1) Acute on chronic congestive heart failure with left ventricular diastolic dysfunction Current visit: Yes Status: Acute Category: Medical Code(s): I50.33 - Acute on chronic diastolic (congestive) heart failure (2) Acute on chronic congestive heart failure with right ventricular diastolic dysfunction Current visit: Yes Status: Acute Category: Medical Code(s): I50.82 - Biventricular heart failure; I50.33 - Acute on chronic diastolic (congestive) heart failure (3) Chronic venous stasis Current visit: No Status: Acute Category: Medical Code(s): I87.8 - Other specified disorders of veins (4) Sepsis Current visit: No Status: Acute Qualifiers: Sepsis acute organ dysfunction status: with acute organ dysfunction Severe sepsis acute organ dysfunction type: acute renal failure Category: Medical Code(s): A41.9 - Sepsis, unspecified organism (5) Uncontrolled diabetes mellitus Current visit: No Status: Acute Category: Medical Code(s): E11.65 - Type 2 diabetes mellitus with hyperglycemia (6) Cardiomyopathy Current visit: No Status: Chronic Qualifiers: Cardiomyopathy type: ischemic Qualified Code(s): I25.5 - Ischemic cardiomyopathy Category: Medical Code(s): I42.9 - Cardiomyopathy, unspecified (7) HHD (hypertensive heart disease) Current visit: No Status: Chronic Qualifiers: Heart failure presence: unspecified whether heart failure present Qualified Code(s): I11.9 - Hypertensive heart disease without heart failure Category: Medical Code(s): I11.9 - Hypertensive heart disease without heart failure (8) Lymphedema in adult patient Current visit: Yes Status: Acute Category: Medical Code(s): I89.0 - Lymphedema, not elsewhere classified (9) Chronic kidney disease, stage 3 Current visit: Yes Status: Chronic Category: Medical Code(s): N18.3 - Chronic kidney disease, stage 3 (moderate) (10) Morbid obesity Current visit: Yes Status: Chronic Category: Medical Code(s): E66.01 - Morbid (severe) obesity due to excess calories (11) Type 2 diabetes mellitus Current visit: Yes Status: Chronic Qualifiers: Diabetes mellitus vesna
[2019-10-21 11:37] LABS: POC Glucose,Bedside 281 (70-110)
--- NOTE | 2019-10-21 12:35 | PC.NURSE ---
THIS RN WAS GIVEN IN REPORT THAT PATIENT HAD NOT URINATED THRU THE NIGHT, THIS RN OBTAINED BLADDER SCAN FROM DR. JUNE OFFICE, BLADDER SCANNER READ 700ML. THIS RN WILL REPORT FINDINGS TO DR. MORALES.
[2019-10-21 14:45] LABS: Microscopic, Urine URINE MICROSCOPIC (MICROSCOPIC)
[2019-10-21 14:46] LABS: Appearance,Urine SL CLOUDY (Clear); Blood, Urine Negative (Negative); Color,Urine YELLOW (Yellow); Glucose,Urine (UA) Negative (Negative); Ketones,Urine Negative (Negative); Leukocyte Esterase,Urine Negative (Negative); Nitrate,Urine Negative (Negative); Protein,Urine Negative (Negative); Specific Gravity, Urine >= 1.030 (1.005-1.030); Urobilinogen,Urine 0.2 EU/dl (0.2)
[2019-10-21 15:11] LABS: Bacteria,Urine Trace /lpf; Bilirubin,Urine Negative (Negative); RBC,Urine Occasional #/hpf (0-3); Squamous Epithelial Cell,Urine Occasional #/hpf (0-5); WBC,Urine Occasional #/hpf (0-3)
[2019-10-21 15:12] LABS: Amorphous Sediment,Urine 1+ /lpf
[2019-10-21 16:00] VITALS: BP 159/76; PULSE 79; RESP 18; TEMP 36.8; O2SAT 91
[2019-10-21 16:23] LABS: POC Glucose,Bedside 256 (70-110)
[2019-10-21 16:23] LABS: POC Glucose,Bedside 261 (70-110)
--- NOTE | 2019-10-21 17:19 | PC.NURSE ---
PATIENT HAS BEEN UP TO CHAIR FOR THIS RN SHIFT. THIS RN HAS ENCOURAGED PATIENT ON SEVERAL OCCASIONS TO AMBULATE IN ROOM. PATIENT HAS BEEN FATIQUED MOST OF SHIFT AND HAS REFUSED ALL AMBULATION. THIS RN INSERTED A TORIBIO PER DR. MORALES ORDER. PATIENT TOLERATED WELL, URINE SAMPLE SENT TO LAB. NO OTHER CONCERNS AT THIS TIME.
[2019-10-21 19:35] VITALS: BP 139/49; PULSE 90; RESP 20; TEMP 36.8; O2SAT 91
[2019-10-21 20:52] LABS: POC Glucose,Bedside 265 (70-110)
[2019-10-21 22:30] VITALS: O2SAT 93
[2019-10-22] VITALS (7 sets, daily range): BP systolic 122–168; BP diastolic 49–63; PULSE 74–91; RESP 16–22; TEMP 36.4–37.1; O2SAT 85–94; BMI 43.0
--- NOTE | 2019-10-22 01:35 | PC.NURSE ---
PT O2 SAT BETWEEN 85 AND 88 AT 0000. PT PLACED ON 4LNC. PT O2 SAT REMAINS AT THIS LEVEL. RN CONTACTED DIRECTOR PROFESSIONAL SERVICES MD BUTLER TO NOTIFY. ORDERED DUONEBS. THIS NURSE NOTIFIED RESP. WELL. WILL CONTINUE TO MONITOR PT O2 SAT. ALL OTHER VSS.
--- NOTE | 2019-10-22 05:09 | PC.NURSE ---
A&OX4. PT CONTINUES TO TOLERATE 4LNC, PT 02 SAT UP TO 92% AFTER DUONEB ADMINISTERED. PT MUCH MORE ALERT AND AWAKE THIS MORNING. PT HAS BEEN IN CHAIR T/O SHIFT. THIS NURSE BATHED PT, ENCOURAGED HIM TO STAND AND WALK AROUND ROOM BUT PT WOULD ONLY STAND TO BE CLEANED AND SIT BACK DOWN. F/C PRESENT DRAINING YELLOW URINE, SOME SEDIMENT PRESENT. CATH CARE COMPLETED. SHAVON BOOTS PRESENT TO BLE. CDI. PT HAS HAD NO C/O PAIN THIS SHIFT, AND HAS NOT C/O FEELING SOA. PT LUNG SOUNDS REMAIN DIMINISHED T/O SHIFT. PT HAS SLEPT MAJORITY OF SHIFT, VSS WILL CONTINUE TO MONITOR.
[2019-10-22 06:05] LABS: Basophils % 0.4 % (0.1-2.0); Eosinophils # 0.2 K/mm3 (0.0-0.4); Eosinophils % 1.8 % (0.1-12.0); Hemoglobin 8.8 g/dL (14.1-18.0); Lymphocytes # 0.7 K/mm3 (0.7-4.5); Lymphocytes % 7.1 % (10-50); Mean Corpuscular HGB Conc 29.4 g/dL (31.8-35.4); Mean Corpuscular Hemoglobin 22.9 pg (27.0-31.2); Mean Corpuscular Volume 77.8 fl (80-94); Mean Platelet Volume 8.4 fl (7.4-10.4); Monocytes # 0.5 K/mm3 (0.1-1.0); Monocytes % 5.2 % (1.7-9.3); Neutrophils # 8.8 K/mm3 (1.8-7.8); Neutrophils % 85.5 % (37.0-80.0); Platelet Count 319 K/mm3 (142-424); Red Blood Count 3.86 M/mm3 (4.60-6.20); Red Cell Distribution Width 17.4 % (11.5-17.5); White Blood Count 10.3 K/mm3 (4.8-10.8)
[2019-10-22 06:09] LABS: Chloride 100 mmol/L (98-107); Sodium 133 mmol/L (136-145)
[2019-10-22 06:10] LABS: MANUAL DIFFERENTIAL MANUAL DIFFERENTIAL (MANUAL DIFF)
[2019-10-22 06:12] LABS: Blood Urea Nitrogen 55 mg/dl (9-20); Calcium 7.9 mg/dl (8.4-10.2); Carbon Dioxide 24 mmol/L (22.0-30.0); Creatinine Clearance Estimated 24 mL/min (50-200); Estimated Glomerular Filt Rate 25 ml/min (>60); GFR (African American) 30 ML/MIN (>60); Glucose 229 mg/dl (74-100)
[2019-10-22 06:44] LABS: POC Glucose,Bedside 229 (70-110)
--- NOTE | 2019-10-22 07:10 | HMH.ACPN2 ---
Internal Medicine - PN: Subj *Date: 10/22/19 *Time: 07:10 Interval history: Patient has no complaints this morning. Patient slept well. Patient reports participating with physical therapy yesterday. Unna boots are now in place on the patient's legs. His shortness of breath is unchanged. He denies chest pain. Exam Vital signs and Labs for Last 24 Hours: Temp Pulse Resp BP Pulse Ox 98.3 F 85 18 151/59 H 92 L 10/22/19 04:00 10/22/19 04:00 10/22/19 04:00 10/22/19 04:00 10/22/19 04:00 Laboratory Results - last 24 hr 10/21/19 06:04: POC Glucose 261 H 10/21/19 11:15: POC Glucose 281 H 10/21/19 14:00: Urine Color Yellow, Urine Appearance Sl cloudy, Urine pH 5.0, Ur Specific [place] >= 1.030, Urine Protein Negative, Urine Glucose (UA) Negative, Urine Ketones Negative, Urine Blood Negative, Urine Nitrate Negative, Urine Bilirubin Negative, Urine Urobilinogen 0.2, Ur Leukocyte Esterase Negative, Urine RBC Occasional, Urine WBC Occasional, Ur Squamous Epith Cells Occasional, Amorphous Sediment 1+, Urine Bacteria Trace 10/21/19 16:15: POC Glucose 256 H 10/21/19 20:31: POC Glucose 265 H 10/22/19 05:55: WBC 10.3, RBC 3.86 L, Hgb 8.8 L, Hct 30.0 L, MCV 77.8 L, MCH 22.9 L, MCHC 29.4 L, RDW 17.4, Plt Count 319, MPV 8.4, Neut % (Auto) 85.5 H, Lymph % (Auto) 7.1 L, [place] % (Auto) 5.2, Eos % (Auto) 1.8, Baso % (Auto) 0.4, Neut # (Auto) 8.8 H, Lymph # (Auto) 0.7, [place] # (Auto) 0.5, Eos # (Auto) 0.2, Baso # (Auto) 0.0 10/22/19 05:55: Sodium 133 L, Potassium 4.0, Chloride 100, Carbon Dioxide 24, Anion Gap 13.0, BUN 55 H, Creatinine 2.50 H D, Estimated Creat Clear 24, Estimated GFR 25 L, Est GFR ( Amer) 30 L D, Glucose 229 H, Calcium 7.9 L 10/22/19 06:07: POC Glucose 229 H I & O for Last 24 hours: Intake & Output 10/19/19 10/20/19 10/21/19 10/22/19 11:59 11:59 11:59 11:59 Intake Total 807 / 807 1330 / 1330 2582 / 2582 1396 / 1396 Output Total 1450 / 1450 Balance 807 / 807 1329 / 1329 2582 / 2582 -54 / -54 Weight 281 lb 1.007 oz 286 lb 5 oz 284 lb 2.813 oz 283 lb 15.039 oz Microbiology Reports for the Last 24 Hours: Microbiology 10/18/19 21:31 Blood Blood Culture - Preliminary Enterococcus faecalis 10/18/19 21:31 Blood Blood Culture - Preliminary Enterococcus faecalis Narrative: Patient appears in no distress. He was sleeping soundly when I entered the room and awakens easily although seems drowsy. Lungs have bibasilar rales and rhonchi posteriorly. Rhonchi clear with cough and deep breathing. Heart has an irregular rate and rhythm. Abdomen is obese Assessment and Plan (1) Acute on chronic congestive heart failure with left ventricular diastolic dysfunction Current visit: Yes Status: Acute Category: Medical Code(s): I50.33 - Acute on chronic diastolic (congestive) heart failure (2) Acute on chronic congestive heart failure with right ventricular diastolic dysfunction Current visit: Yes Status: Acute Category: Medical Code(s): I50.82 - Biventricular heart failure; I50.33 - Acute on chronic diastolic (congestive) heart failure (3) Chronic venous stasis Current visit: No Status: Acute Category: Medical Code(s): I87.8 - Other specified disorders of veins (4) Sepsis Current visit: No Status: Acute Qualifiers: Sepsis acute organ dysfunction status: with acute organ dysfunction Severe sepsis acute organ dysfunction type: acute renal failure Category: Medical Code(s): A41.9 - Sepsis, unspecified organism (5) Uncontrolled diabetes mellitus Current visit: No Status: Acute Category: Medical Code(s): E11.65 - Type 2 diabetes mellitus with hyperglycemia (6) Cardiomyopathy Current visit: No Status: Chronic Qualifiers: Cardiomyopathy type: ischemic Qualified Code(s): I25.5 - Ischemic cardiomyopathy Category: Medical Code(s): I42.9 - Cardiomyopathy, unspecified (7) HHD (hyperten
[2019-10-22 07:16] LABS: Acanthocytes 1+; Anisocytosis 1+; Eosinophils % 1 % (0-3); Hypochromasia 2+; Lymphocytes % 6 % (10-50); Microcytosis 1+; Monocytes % 4 % (2-9); Neutrophils % 89 % (42-76); Platelet Estimate Normal; Poikilocytosis 2+; Total Cells Counted 100
[2019-10-22 11:40] LABS: POC Glucose,Bedside 259 (70-110)
--- NOTE | 2019-10-22 15:03 | DIET.NUTRFU ---
BG remains elevated but stabilized since admit, insulin has been increased to high intensity. Weight is stable.
[2019-10-22 16:38] LABS: POC Glucose,Bedside 283 (70-110)
--- NOTE | 2019-10-22 18:47 | PC.NURSE ---
PATIENT HAS BEEN UP SLEEPING IN HIS RECLINER MOST OF SHIFT. DID STATE THAT HE IS FEELING A LITTLE BETTER TODAY. TORIBIO CATH IS PATENT AND DRAINING TO GRAVITY WITH LENARD COLORED URINE. HAS BEEN REFUSING TO DO INCENTIVE SPIROMETER OR STATING I DID IT ALREADY HE DID DO IT THIS AM FOR ME. CALL LIGHT WITHIN REACH WILL CONTINUE TO MONITOR.
[2019-10-22 20:43] LABS: POC Glucose,Bedside 273 (70-110)
[2019-10-23] VITALS (10 sets, daily range): BP systolic 118–167; BP diastolic 56–73; PULSE 63–78; RESP 16–20; TEMP 36.7–36.9; O2SAT 81–94; BMI 41.5
--- NOTE | 2019-10-23 05:23 | PC.NURSE ---
A&O X4. PT NOTED TO BE VERY AGITATED WITH THIS RN AT THE BEGINNING OF THE SHIFT, STATES HIS MD NEVER SAW HIM TODAY OR TOLD HIM ANYTHING. HE ALSO STATES HE IS READY TO GO HOME NOW, HE IS NOT STAYING HERE ANY LONGER. INFORMED PT THAT HIS MD WAS HERE ON 10/21 AT 0710 AM AND VISITED WITH HIM. NO ACUTE CHANGES NOTED T/O THIS SHIFT. PT TOLERATED 2.5 LNC WELL WITH NO SOA NOTED. 02 SATS RANGED 90-93% ON 2.5 LNC. RA SAT THIS AM 81%. PT DOES WELL AMB TO AND FROM BED WITH WALKER AND STAFF ASSIST X1. +4 PITTING EDEMA NOTED TO BLE. UNNA BOOTS REMAIN IN PLACE T/O SHIFT. PT REFUSED TO ELEVATE BLE WHILE SLEEPING IN CHAIR. EDUCATED PT ON WHY ELEVATING HIS LEGS WOULD BENEFIT HIM, PT CONTINUE TO REFUSE. REFUSED TEDS. VSS. FC IN PLACE, DRAINING ADEQUATELY. URINE NOTED CLEAR, DARK LENARD IN COLOR WITH NORMAL ODOR. REMAINS SAFE. CALL LIGHT WITHIN REACH. WILL CONTINUE TO MONITOR.
--- NOTE | 2019-10-23 05:41 | PC.NURSE ---
RN NOTIFIED OF WEIGHT LOSS
[2019-10-23 06:31] LABS: POC Glucose,Bedside 216 (70-110)
[2019-10-23 07:23] LABS: Chloride 101 mmol/L (98-107); Potassium 3.9 mmoL/L (3.5-5.1); Sodium 138 mmol/L (136-145)
[2019-10-23 07:26] LABS: Anion Gap 14.9 mEq/L (5-15); Blood Urea Nitrogen 44 mg/dl (9-20); Calcium 8.4 mg/dl (8.4-10.2); Carbon Dioxide 26 mmol/L (22.0-30.0); Creatinine Clearance Estimated 32 mL/min (50-200); Estimated Glomerular Filt Rate 35 ml/min (>60); GFR (African American) 42 ML/MIN (>60); Glucose 206 mg/dl (74-100)
[2019-10-23 07:27] LABS: Basophils % 0.4 % (0.1-2.0); Eosinophils # 0.1 K/mm3 (0.0-0.4); Eosinophils % 1.6 % (0.1-12.0); Hematocrit 28.3 % (42.0-52.0); Hemoglobin 8.3 g/dL (14.1-18.0); Lymphocytes # 0.7 K/mm3 (0.7-4.5); Lymphocytes % 8.7 % (10-50); Mean Corpuscular HGB Conc 29.3 g/dL (31.8-35.4); Mean Corpuscular Hemoglobin 23.2 pg (27.0-31.2); Mean Corpuscular Volume 79.1 fl (80-94); Mean Platelet Volume 8.1 fl (7.4-10.4); Monocytes # 0.4 K/mm3 (0.1-1.0); Monocytes % 4.5 % (1.7-9.3); Neutrophils # 7.3 K/mm3 (1.8-7.8); Neutrophils % 84.9 % (37.0-80.0); Platelet Count 342 K/mm3 (142-424); Red Blood Count 3.58 M/mm3 (4.60-6.20); Red Cell Distribution Width 17.6 % (11.5-17.5); White Blood Count 8.5 K/mm3 (4.8-10.8)
--- NOTE | 2019-10-23 08:08 | HMH.ACPN2 ---
Internal Medicine - PN: Subj *Date: 10/23/19 *Time: 08:08 Interval history: Patient is eager to go home. However he admits to persistence in his shortness of breath. He is reminded that he has bacteremia that requires IV antibiotics. Nursing staff reports patient was very aggravated overnight regarding being in the hospital. This morning when patient is questioned regarding details of his diabetes he struggles with answering questions. I believe the gabapentin he is receiving at night is impairing him cognitively. Exam Vital signs and Labs for Last 24 Hours: Temp Pulse Resp BP Pulse Ox 98.0 F 78 17 118/64 92 L 10/23/19 07:33 10/23/19 07:33 10/23/19 07:33 10/23/19 07:33 10/23/19 07:33 Laboratory Results - last 24 hr 10/22/19 11:24: POC Glucose 259 H 10/22/19 16:26: POC Glucose 283 H 10/22/19 20:11: POC Glucose 273 H 10/23/19 06:09: POC Glucose 216 H 10/23/19 06:30: WBC 8.5, RBC 3.58 L, Hgb 8.3 L, Hct 28.3 L, MCV 79.1 L, MCH 23.2 L, MCHC 29.3 L, RDW 17.6 H, Plt Count 342, MPV 8.1, Neut % (Auto) 84.9 H, Lymph % (Auto) 8.7 L, [place] % (Auto) 4.5, Eos % (Auto) 1.6, Baso % (Auto) 0.4, Neut # (Auto) 7.3, Lymph # (Auto) 0.7, [place] # (Auto) 0.4, Eos # (Auto) 0.1, Baso # (Auto) 0.0 10/23/19 06:30: Sodium 138, Potassium 3.9, Chloride 101, Carbon Dioxide 26, Anion Gap 14.9, BUN 44 H, Creatinine 1.90 H D, Estimated Creat Clear 32, Estimated GFR 35 L, Est GFR ( Amer) 42 L D, Glucose 206 H, Calcium 8.4 I & O for Last 24 hours: Intake & Output 10/20/19 10/21/19 10/22/19 10/23/19 11:59 11:59 11:59 11:59 Intake Total 1330 / 1330 2582 / 2582 1636 / 1636 390 / 390 Output Total 1450 / 1450 2400 / 2400 Balance 1329 / 1329 2582 / 2582 186 / 186 -2009 / Weight 286 lb 5 oz 284 lb 2.813 oz 283 lb 15.039 oz 274 lb 5 oz Narrative: Patient is sitting up in chair. He does not appear to be in any respiratory distress. Lung exam reveals basilar crackles left more than right. Patient is voluntary inspiratory effort is poor. Heart has a regular rate and rhythm. Abdomen is obese. Both lower extremities are wrapped in Unna boots. Assessment and Plan (1) Enterococcus faecalis infection Current visit: Yes Status: Acute Category: Medical Code(s): B95.2 - Enterococcus as the cause of diseases classified elsewhere (2) Acute on chronic congestive heart failure with left ventricular diastolic dysfunction Current visit: Yes Status: Acute Category: Medical Code(s): I50.33 - Acute on chronic diastolic (congestive) heart failure (3) Acute on chronic congestive heart failure with right ventricular diastolic dysfunction Current visit: Yes Status: Acute Category: Medical Code(s): I50.82 - Biventricular heart failure; I50.33 - Acute on chronic diastolic (congestive) heart failure (4) Chronic venous stasis Current visit: No Status: Acute Category: Medical Code(s): I87.8 - Other specified disorders of veins (5) Sepsis Current visit: No Status: Acute Qualifiers: Sepsis acute organ dysfunction status: with acute organ dysfunction Severe sepsis acute organ dysfunction type: acute renal failure Category: Medical Code(s): A41.9 - Sepsis, unspecified organism (6) Uncontrolled diabetes mellitus Current visit: No Status: Acute Category: Medical Code(s): E11.65 - Type 2 diabetes mellitus with hyperglycemia (7) Cardiomyopathy Current visit: No Status: Chronic Qualifiers: Cardiomyopathy type: ischemic Qualified Code(s): I25.5 - Ischemic cardiomyopathy Category: Medical Code(s): I42.9 - Cardiomyopathy, unspecified (8) HHD (hypertensive heart disease) Current visit: No Status: Chronic Qualifiers: Heart failure presence: unspecified whether heart failure present Qualified Code(s): I11.9 - Hypertensive heart disease without heart failure Category: Medical Code(s): I11.9 - Hypertensive heart disease without heart failure (9) Lymphedema in ad
[2019-10-23 11:13] LABS: POC Glucose,Bedside 224 (70-110)
--- NOTE | 2019-10-23 14:36 | PC.NURSE ---
Pt is sitting up in recliner at this time. He has no complaints at this time and is currently pleasent. Have encouraged elevation on BLE and pt has allowed me to elevate them. Pt does have BLE unna boots on He didnt eat a lot for lunch. Tray in room still currently. RR even and unlabored. PT continues to be on 2.5 L NC. CB in reach. No complaints currently. Will cont to mx this shift. VSS
[2019-10-23 16:12] LABS: POC Glucose,Bedside 196 (70-110)
--- NOTE | 2019-10-23 17:52 | PC.NURSE ---
RA sat 83%.Unable to wean 02 at this time. Sats currently 91% on 2.5 L NC
[2019-10-23 20:34] LABS: POC Glucose,Bedside 210 (70-110)
[2019-10-24] VITALS: BP 132/66; PULSE 63; RESP 16; TEMP 36.7; O2SAT 94
[2019-10-24 04:00] VITALS: BP 147/73; PULSE 64; RESP 19; TEMP 36.9; O2SAT 95
--- NOTE | 2019-10-24 04:33 | PC.NURSE ---
15 MIN. RA SAT COULD NOT BE SAFELY OBTAINED; PT. DECREASED TO 86% AND 2.5L NC REAPPLIED, PT. INCREASED TO 92% QUICKLY. PT. CURRENTLY 90-92% ON 2L NC. PT. HAS C/O GENERALIZED CHRONIC PAIN X1; TX WITH OXYCODONE; EFFECTIVENESS NOTED. PT. HAS NOT C/O N/V/D, INCREASED SOA OR DIZZINESS. UNNA BOOTS TO BLE.
[2019-10-24 05:00] VITALS: BMI 43.4
--- NOTE | 2019-10-24 05:05 | PC.NURSE ---
RN NOTIFIED OF WEIGHT GAIN
[2019-10-24 06:14] LABS: Basophils % 0.3 % (0.1-2.0); Eosinophils # 0.2 K/mm3 (0.0-0.4); Eosinophils % 2.1 % (0.1-12.0); Hemoglobin 8.2 g/dL (14.1-18.0); Lymphocytes # 0.7 K/mm3 (0.7-4.5); Lymphocytes % 9.3 % (10-50); Mean Corpuscular HGB Conc 28.3 g/dL (31.8-35.4); Mean Corpuscular Hemoglobin 22.4 pg (27.0-31.2); Mean Corpuscular Volume 79.2 fl (80-94); Mean Platelet Volume 7.5 fl (7.4-10.4); Monocytes # 0.4 K/mm3 (0.1-1.0); Monocytes % 5.2 % (1.7-9.3); Neutrophils # 6.6 K/mm3 (1.8-7.8); Neutrophils % 83.1 % (37.0-80.0); Platelet Count 353 K/mm3 (142-424); Red Blood Count 3.65 M/mm3 (4.60-6.20); Red Cell Distribution Width 17.5 % (11.5-17.5)
[2019-10-24 06:16] LABS: Microscopic, Urine URINE MICROSCOPIC (MICROSCOPIC)
[2019-10-24 06:16] LABS: POC Glucose,Bedside 213 (70-110)
[2019-10-24 06:16] LABS: Hematocrit 28.9 % (42.0-52.0)
[2019-10-24 06:21] LABS: Appearance,Urine CLEAR (Clear); Bilirubin,Urine Negative (Negative); Blood, Urine 3+ (Negative); Color,Urine YELLOW (Yellow); Glucose,Urine (UA) Negative (Negative); Ketones,Urine Negative (Negative); Leukocyte Esterase,Urine Negative (Negative); Nitrate,Urine Negative (Negative); PH,Urine 5.5 (5.0-8.5); Protein,Urine Negative (Negative); Specific Gravity, Urine 1.025 (1.005-1.030); Urobilinogen,Urine 0.2 EU/dl (0.2)
[2019-10-24 06:21] LABS: Anion Gap 9.9 mEq/L (5-15); Blood Urea Nitrogen 40 mg/dl (9-20); Calcium 8.5 mg/dl (8.4-10.2); Carbon Dioxide 30 mmol/L (22.0-30.0); Chloride 101 mmol/L (98-107); Creatinine Clearance Estimated 32 mL/min (50-200); Estimated Glomerular Filt Rate 35 ml/min (>60); GFR (African American) 42 ML/MIN (>60); Glucose 208 mg/dl (74-100); Potassium 3.9 mmoL/L (3.5-5.1); Sodium 137 mmol/L (136-145)
[2019-10-24 06:26] LABS: Hyaline Casts,Urine Occasional #/lpf (0); RBC,Urine 20-50 #/hpf (0-3)
--- NOTE | 2019-10-24 07:54 | HMH.ACPN2 ---
Internal Medicine - PN: Subj *Date: 10/24/19 *Time: 07:54 Interval history: Patient's only complaint this morning is once again his desire for discharge. He is reminded once again of his need for frequent IV antibiotics that essentially prohibit discharged home with home intervention. Patient claims this morning he is not sure whether his shortness of breath has improved. He did ambulate in the room a little yesterday. Patient required reinsertion of [place] catheter early this morning when he began complaining of the need to urinate with inability to do so. Patient had issues with urinary retention during his hospitalization in February 2019 as well. Exam Vital signs and Labs for Last 24 Hours: Temp Pulse Resp BP Pulse Ox 98.4 F 64 19 147/73 H 95 10/24/19 04:00 10/24/19 04:00 10/24/19 04:00 10/24/19 04:00 10/24/19 04:00 Laboratory Results - last 24 hr 10/23/19 11:06: POC Glucose 224 H 10/23/19 16:03: POC Glucose 196 H 10/23/19 20:15: POC Glucose 210 H 10/24/19 05:48: Urine Color Yellow, Urine Appearance Clear, Urine pH 5.5, Ur Specific [place] 1.025, Urine Protein Negative, Urine Glucose (UA) Negative, Urine Ketones Negative, Urine Blood 3+, Urine Nitrate Negative, Urine Bilirubin Negative, Urine Urobilinogen 0.2, Ur Leukocyte Esterase Negative, Urine RBC 20-50, Hyaline Casts Occasional 10/24/19 06:00: WBC 8.0, RBC 3.65 L, Hgb 8.2 L, Hct 28.9 L, MCV 79.2 L, MCH 22.4 L, MCHC 28.3 L, RDW 17.5, Plt Count 353, MPV 7.5, Neut % (Auto) 83.1 H, Lymph % (Auto) 9.3 L, [place] % (Auto) 5.2, Eos % (Auto) 2.1, Baso % (Auto) 0.3, Neut # (Auto) 6.6, Lymph # (Auto) 0.7, [place] # (Auto) 0.4, Eos # (Auto) 0.2, Baso # (Auto) 0.0 10/24/19 06:00: Sodium 137, Potassium 3.9, Chloride 101, Carbon Dioxide 30, Anion Gap 9.9, BUN 40 H, Creatinine 1.90 H, Estimated Creat Clear 32, Estimated GFR 35 L, Est GFR ( Amer) 42 L, Glucose 208 H, Calcium 8.5 10/24/19 06:00: Blood Type A Positive, Antibody Screen Negative 10/24/19 06:04: POC Glucose 213 H I & O for Last 24 hours: Intake & Output 10/21/19 10/22/19 10/23/19 10/24/19 11:59 11:59 11:59 11:59 Intake Total 2582 / 2582 1636 / 1636 390 / 390 200 / 200 Output Total 1450 / 1450 2400 / 2400 2255 / 2255 Balance 2582 / 2582 186 / 186 -2009 / -2009 -2054 / Weight 284 lb 2.813 oz 283 lb 15.039 oz 274 lb 5 oz 286 lb 9 oz Narrative: Patient looks comfortable sitting up in bed. Oropharynx is moist. Lungs have bibasilar crackles, more prominent today than yesterday. Heart has a regular rate and rhythm. Abdomen is obese. Lower extremities are wrapped in Unna boots. Assessment and Plan (1) Enterococcus faecalis infection Current visit: Yes Status: Acute Category: Medical Code(s): B95.2 - Enterococcus as the cause of diseases classified elsewhere (2) Acute on chronic congestive heart failure with left ventricular diastolic dysfunction Current visit: Yes Status: Acute Category: Medical Code(s): I50.33 - Acute on chronic diastolic (congestive) heart failure (3) Acute on chronic congestive heart failure with right ventricular diastolic dysfunction Current visit: Yes Status: Acute Category: Medical Code(s): I50.82 - Biventricular heart failure; I50.33 - Acute on chronic diastolic (congestive) heart failure (4) Chronic venous stasis Current visit: No Status: Acute Category: Medical Code(s): I87.8 - Other specified disorders of veins (5) Sepsis Current visit: No Status: Acute Qualifiers: Sepsis acute organ dysfunction status: with acute organ dysfunction Severe sepsis acute organ dysfunction type: acute renal failure Category: Medical Code(s): A41.9 - Sepsis, unspecified organism (6) Uncontrolled diabetes mellitus Current visit: No Status: Acute Category: Medical Code(s): E11.65 - Type 2 diabetes mellitus with hyperglycemia (7) Cardiomyopathy Current visit: No Status: Chronic Qualifiers: Cardiomyopathy type: ischemic
[2019-10-24 08:00] VITALS: BP 124/63; PULSE 69; RESP 20; TEMP 36.6; O2SAT 94
[2019-10-24 11:55] LABS: POC Glucose,Bedside 129 (70-110)
--- NOTE | 2019-10-24 14:51 | PC.NURSE ---
Pt alert and oriented and able to make needs known. Pt has made inappropriate comments today sexually toward this nurse and has been redirected verbally. Pt continues to be sitting up in chair at this time and has escobar cath in place and draining arsh urine. CB in reach. IV ABT continues. FS 129 @ lunch, no ssi required. Crackles noted to RU lobe upon auscultation. Will cont to mx pt this shift. Unna boots are cdi on ble. CB in reach.
[2019-10-24 15:20] LABS: POC Glucose,Bedside 137 (70-110)
[2019-10-24 15:59] VITALS: BP 142/83; PULSE 92; RESP 20; TEMP 36.3; O2SAT 92
[2019-10-24 18:15] VITALS: O2SAT 92
[2019-10-24 19:31] VITALS: BP 137/59; PULSE 61; RESP 18; TEMP 36.7; O2SAT 97
[2019-10-25] VITALS (8 sets, daily range): BP systolic 122–150; BP diastolic 50–70; PULSE 61–78; RESP 16–20; TEMP 36.4–36.8; O2SAT 92–99; BMI 43.0
[2019-10-25 01:13] LABS: POC Glucose,Bedside 150 (70-110)
--- NOTE | 2019-10-25 03:18 | PC.NURSE ---
PT. HAS NOT C/O N/V/D, SOA, PAIN, OR DIZZINESS. PT. DENIES COUGH; EXPIRATORY CRACKLES NOTED TO R LOBE. FC IN PLACE DRAINING BRIGHT YELLOW URINE. PT.HAD LARGE BM AND GIVEN A BATH. UNNA BOOTS REMAIN C/D/I.
[2019-10-25 06:36] LABS: Basophils % 0.5 % (0.1-2.0); Eosinophils # 0.1 K/mm3 (0.0-0.4); Eosinophils % 1.7 % (0.1-12.0); Hematocrit 28.9 % (42.0-52.0); Hemoglobin 8.4 g/dL (14.1-18.0); Lymphocytes # 0.8 K/mm3 (0.7-4.5); Lymphocytes % 10.9 % (10-50); Mean Corpuscular HGB Conc 29.2 g/dL (31.8-35.4); Mean Corpuscular Hemoglobin 22.8 pg (27.0-31.2); Mean Corpuscular Volume 78.1 fl (80-94); Mean Platelet Volume 8.7 fl (7.4-10.4); Monocytes # 0.3 K/mm3 (0.1-1.0); Neutrophils # 6.3 K/mm3 (1.8-7.8); Neutrophils % 82.9 % (37.0-80.0); Platelet Count 375 K/mm3 (142-424); Red Blood Count 3.69 M/mm3 (4.60-6.20); Red Cell Distribution Width 17.6 % (11.5-17.5); White Blood Count 7.6 K/mm3 (4.8-10.8)
[2019-10-25 06:41] LABS: Chloride 102 mmol/L (98-107); Sodium 138 mmol/L (136-145)
[2019-10-25 06:44] LABS: Blood Urea Nitrogen 32 mg/dl (9-20); Creatinine Clearance Estimated 37 mL/min (50-200); Estimated Glomerular Filt Rate 42 ml/min (>60); GFR (African American) 51 ML/MIN (>60)
[2019-10-25 06:45] LABS: Calcium 8.6 mg/dl (8.4-10.2); Carbon Dioxide 29 mmol/L (22.0-30.0); Glucose 123 mg/dl (74-100)
--- NOTE | 2019-10-25 07:30 | HMH.ACPN2 ---
Internal Medicine - PN: Subj *Date: 10/25/19 *Time: 07:30 Interval history: Patient has no new complaints this morning. He would like a cold Pepsi if possible. Shortness of breath is slightly improved. He denies chest pain. Exam Vital signs and Labs for Last 24 Hours: Temp Pulse Resp BP Pulse Ox 97.7 F 62 19 140/55 L 92 L 10/25/19 03:59 10/25/19 03:59 10/25/19 03:59 10/25/19 03:59 10/25/19 04:23 Laboratory Results - last 24 hr 10/24/19 11:44: POC Glucose 129 H 10/24/19 15:10: POC Glucose 137 H 10/24/19 21:04: POC Glucose 150 H 10/25/19 06:12: WBC 7.6, RBC 3.69 L, Hgb 8.4 L, Hct 28.9 L, MCV 78.1 L, MCH 22.8 L, MCHC 29.2 L, RDW 17.6 H, Plt Count 375, MPV 8.7, Neut % (Auto) 82.9 H, Lymph % (Auto) 10.9, [place] % (Auto) 4.0, Eos % (Auto) 1.7, Baso % (Auto) 0.5, Neut # (Auto) 6.3, Lymph # (Auto) 0.8, [place] # (Auto) 0.3, Eos # (Auto) 0.1, Baso # (Auto) 0.0 10/25/19 06:12: Sodium 138, Potassium 4.0, Chloride 102, Carbon Dioxide 29, Anion Gap 11.0, BUN 32 H, Creatinine 1.60 H, Estimated Creat Clear 37, Estimated GFR 42 L, Est GFR ( Amer) 51 L D, Glucose 123 H, Calcium 8.6 I & O for Last 24 hours: Intake & Output 10/22/19 10/23/19 10/24/19 10/25/19 11:59 11:59 11:59 11:59 Intake Total 1636 / 1636 390 / 390 440 / 440 680 / 680 Output Total 1450 / 1450 2400 / 2400 2255 / 2255 1999 / 1999 Balance 186 / 186 -2009 / -2009 -1815 / -1815 -1320 / -1320 Weight 283 lb 15.039 oz 274 lb 5 oz 286 lb 9 oz 283 lb 11.759 oz Narrative: Patient is sleeping when I enter the room but awakens easily. Oropharynx is moist. Neck is without lymphadenopathy. Lungs are clear anteriorly but he still has bibasilar crackles although aeration seems better. Heart rate is irregular. Abdomen is obese. Lower extremities remain wrapped with Unna boots. Assessment and Plan (1) Enterococcus faecalis infection Current visit: Yes Status: Acute Category: Medical Code(s): B95.2 - Enterococcus as the cause of diseases classified elsewhere (2) Acute on chronic congestive heart failure with left ventricular diastolic dysfunction Current visit: Yes Status: Acute Category: Medical Code(s): I50.33 - Acute on chronic diastolic (congestive) heart failure (3) Acute on chronic congestive heart failure with right ventricular diastolic dysfunction Current visit: Yes Status: Acute Category: Medical Code(s): I50.82 - Biventricular heart failure; I50.33 - Acute on chronic diastolic (congestive) heart failure (4) Chronic venous stasis Current visit: No Status: Acute Category: Medical Code(s): I87.8 - Other specified disorders of veins (5) Sepsis Current visit: No Status: Acute Qualifiers: Sepsis acute organ dysfunction status: with acute organ dysfunction Severe sepsis acute organ dysfunction type: acute renal failure Category: Medical Code(s): A41.9 - Sepsis, unspecified organism (6) Uncontrolled diabetes mellitus Current visit: No Status: Acute Category: Medical Code(s): E11.65 - Type 2 diabetes mellitus with hyperglycemia (7) Cardiomyopathy Current visit: No Status: Chronic Qualifiers: Cardiomyopathy type: ischemic Qualified Code(s): I25.5 - Ischemic cardiomyopathy Category: Medical Code(s): I42.9 - Cardiomyopathy, unspecified (8) HHD (hypertensive heart disease) Current visit: No Status: Chronic Qualifiers: Heart failure presence: unspecified whether heart failure present Qualified Code(s): I11.9 - Hypertensive heart disease without heart failure Category: Medical Code(s): I11.9 - Hypertensive heart disease without heart failure (9) Lymphedema in adult patient Current visit: Yes Status: Acute Category: Medical Code(s): I89.0 - Lymphedema, not elsewhere classified (10) Chronic kidney disease, stage 3 Current visit: Yes Status: Chronic Category: Medical Code(s): N18.3 - Chronic kidney disease, stage 3 (moderate) (11) Morbid obesity
--- NOTE | 2019-10-25 07:34 | SW/DCPLANNER ---
PATIENT ADMITTED TO [facility] WITH HEART FAILURE AND OTHER HEALTH ISSUES...HE HAS BEEN SEEN BY CARDIOLOGY AND THE PLAN IS FOR HIM TO DISCHARGE HOME ON FRIDAY WITH HOME HEALTH SERVICES... THIS WILL BE SET UP PRIOR TO PATIENT DISCHARGES....
--- NOTE | 2019-10-25 07:59 | HMH.PTEV ---
Physical Therapy Evaluation Rehab PT IP Evaluation Start: 10/21/19 07:15 Freq: ONCE Status: Active Protocol: Document 10/21/19 11:05 RICHYJUAN ALBERTO (Rec: 10/21/19 11:10 BRIDGET [id number]) Subjective/History History History This is the initial IP PT evaluation for Johnathon Ellsworth. Pt is a 79 y/o male admitted to [facility] due to increased weakness and SOA over the last several days. Pt has sig renal deficiency, cardiac issues, venous insufficiency and severe hyperkeratosis on BLE Subjective Subjective Pt reports SOA w/ activity Rehab PT IP Eval Objective Appearance Patient Behavior Fatigued Patient Orientation Person,Place,Time Difficulty following instructions none Speech Pattern Garbled Ambulation Patient Able to Ambulate Yes Ambulation Observation IP General Gait Pattern Observation Shuffling Step Ambulation Distance (feet) 10 Ambulation Assistive Device Rolling Walker Ambulation Ability Supervision/Stand by Balance Ability to Arise Able, uses arms to help Sitting Balance Steady, safe Standing Balance Steady, wide stance Dynamic Sitting Balance Ability Normal Dynamic Standing Balance Ability Fair Transfers Sit to Stand Bed Transfer Ability Supervision/Stand by Sit to Stand Chair Transfer Ability Supervision/Stand by ROM All Extremities PT ROM Status WFL MMT All Extremities PT MMT WFL Rehab PT IP prob,goals,plan Problems Date of Evaluation: 10/21/19 PT IP Problems Gait,Self care Rehab Potential Rehab Potential Fair Equipment Needs Assistive Devices Rolling / Wheeled Walker Plan PT Intervention Plan Transfers,Gait,Therapeutic Exercise PT Plan Frequency BID Duration LOS Discharge Goals Ambulation Assistive Device Rolling Walker Ambulation Distance (feet) 25 Discharge Plan PT Discharge Plan pt to return home w/ spouse once medically stable - pt would benefit from HHPT or OPPT for wound care and edema care of BLE G -code Required Yes Eval Complexity Eval Charge Codes 63997 - Low Complexity G Codes PT Current Status Mobility PT Current Status Modifier CK-At least 40% but less than
--- NOTE | 2019-10-25 08:00 | HMH.PTWOUND ---
Rehab Inpt Wound Evaluation Rehab IP Wound Evaluation Start: 10/21/19 07:15 Freq: ONCE Status: Active Protocol: Document 10/21/19 11:10 BRIDGET (Rec: 10/21/19 11:16 [email or web address] [id number]) Rehab PT Wound Assessment Patient Status Premedicated Prior to Dressing Change No Subjective Subjective no complaints from pt Wound Left Lower Leg Wound Type edematous weeping Is This a Chronic Wound Yes Wound Bed Appearance Blisters,Edematous Percentage of Slough (%) 100 Surrounding Tissue Appearance Edematous Edema Appearance Open Sores Wound Drainage Description Serous Drainage Amount Small Drainage Odor No Odor Dressing Status Open to Air Primary Dressing Unna Boot Wound Secondary Dressing Type Unna Boot Right Lower Leg Wound Type edematous weeping Percentage of Slough (%) 100 Percentage of Eschar (Yellow) (%) 100 Wound Margins Description Indistinct Surrounding Tissue Appearance Edematous Wound Drainage Description Serous Drainage Amount Small Drainage Odor No Odor Dressing Status Open to Air Primary Dressing Unna Boot Wound Secondary Dressing Type Unna Boot Dressing Change Patient Tolerance Tolerated Well Plan/Recommendation Comment maintain wound care while pt in [facility] - continued wound care in HH or OP upon DC Eval Complexity Eval Charge Codes 49012 - Low Complexity PHYSICIAN CERTIFICATION: I certify the specified therapy services for Johnathon Ellsworth are required, authorized, and reviewed every 30 days.
[2019-10-25 09:08] LABS: POC Glucose,Bedside 131 (70-110)
[2019-10-25 11:18] LABS: POC Glucose,Bedside 156 (70-110)
--- NOTE | 2019-10-25 19:26 | PC.NURSE ---
report given to gertrudis
[2019-10-25 20:44] LABS: POC Glucose,Bedside 174 (70-110)
[2019-10-26 00:37] LABS: POC Glucose,Bedside 129 (70-110)
[2019-10-26 04:00] VITALS: BP 112/56; PULSE 69; RESP 16; TEMP 36.7; O2SAT 93
[2019-10-26 05:00] VITALS: BMI 43.0
[2019-10-26 05:25] LABS: POC Glucose,Bedside 150 (70-110)
[2019-10-26 06:22] LABS: Basophils % 0.3 % (0.1-2.0); Eosinophils # 0.1 K/mm3 (0.0-0.4); Eosinophils % 1.8 % (0.1-12.0); Hematocrit 29.9 % (42.0-52.0); Hemoglobin 8.5 g/dL (14.1-18.0); Lymphocytes # 0.9 K/mm3 (0.7-4.5); Lymphocytes % 12.6 % (10-50); Mean Corpuscular HGB Conc 28.6 g/dL (31.8-35.4); Mean Corpuscular Hemoglobin 22.6 pg (27.0-31.2); Mean Corpuscular Volume 79.1 fl (80-94); Mean Platelet Volume 7.8 fl (7.4-10.4); Monocytes # 0.3 K/mm3 (0.1-1.0); Monocytes % 4.3 % (1.7-9.3); Neutrophils # 5.8 K/mm3 (1.8-7.8); Neutrophils % 80.9 % (37.0-80.0); Platelet Count 371 K/mm3 (142-424); Red Blood Count 3.77 M/mm3 (4.60-6.20); Red Cell Distribution Width 17.7 % (11.5-17.5); White Blood Count 7.2 K/mm3 (4.8-10.8)
--- NOTE | 2019-10-26 06:22 | PC.NURSE ---
No acute changes this shift. Pt has been up to chair all shift and refuses when asked if he would like to go to bed. 2LNC remains in place. Abebe to bedside drain w/ clear, yellow urine (sediment noted). Only c/o chronic back pain this shift and medicated per MAR (pt requested 1/2 dose of pain medication). No c/o SOA or dizziness. Unna boots to BLE remain C/D/I. No c/o pain, numbness, or tingling in BLE.
[2019-10-26 06:28] LABS: Anion Gap 9.8 mEq/L (5-15); Blood Urea Nitrogen 29 mg/dl (9-20); Calcium 8.8 mg/dl (8.4-10.2); Carbon Dioxide 31 mmol/L (22.0-30.0); Chloride 101 mmol/L (98-107); Creatinine Clearance Estimated 37 mL/min (50-200); Estimated Glomerular Filt Rate 42 ml/min (>60); GFR (African American) 51 ML/MIN (>60); Glucose 148 mg/dl (74-100); Potassium 3.8 mmoL/L (3.5-5.1); Sodium 138 mmol/L (136-145)
--- NOTE | 2019-10-26 07:39 | HMH.ACPN2 ---
Internal Medicine - PN: Subj *Date: 10/26/19 *Time: 07:39 Interval history: Patient has no complaints this morning. He feels like his shortness of breath has improved since yesterday. He denies chest pain. His only pain complaint involves his lower back Exam Vital signs and Labs for Last 24 Hours: Temp Pulse Resp BP Pulse Ox 98.0 F 69 16 112/56 L 93 L 10/26/19 04:00 10/26/19 04:00 10/26/19 04:00 10/26/19 04:00 10/26/19 04:00 Laboratory Results - last 24 hr 10/25/19 06:22: POC Glucose 131 H 10/25/19 11:10: POC Glucose 156 H 10/25/19 16:56: POC Glucose 129 H 10/25/19 19:55: POC Glucose 174 H 10/26/19 05:15: POC Glucose 150 H 10/26/19 05:58: WBC 7.2, RBC 3.77 L, Hgb 8.5 L, Hct 29.9 L, MCV 79.1 L, MCH 22.6 L, MCHC 28.6 L, RDW 17.7 H, Plt Count 371, MPV 7.8, Neut % (Auto) 80.9 H, Lymph % (Auto) 12.6, [place] % (Auto) 4.3, Eos % (Auto) 1.8, Baso % (Auto) 0.3, Neut # (Auto) 5.8, Lymph # (Auto) 0.9, [place] # (Auto) 0.3, Eos # (Auto) 0.1, Baso # (Auto) 0.0 10/26/19 05:58: Sodium 138, Potassium 3.8, Chloride 101, Carbon Dioxide 31 H, Anion Gap 9.8, BUN 29 H, Creatinine 1.60 H, Estimated Creat Clear 37, Estimated GFR 42 L, Est GFR ( Amer) 51 L, Glucose 148 H D, Calcium 8.8 I & O for Last 24 hours: Intake & Output 10/23/19 10/24/19 10/25/19 10/26/19 11:59 11:59 11:59 11:59 Intake Total 390 / 390 440 / 440 740 / 740 520 / 520 Output Total 2400 / 2400 2255 / 2255 1999 / 1999 550 / 550 Balance -2009 / -1815 / -1815 -1260 / -1260 - / -30 Weight 274 lb 5 oz 286 lb 9 oz 283 lb 11.759 oz 283 lb 11.759 oz Microbiology Reports for the Last 24 Hours: Microbiology 10/24/19 06:00 Blood Blood Culture - Preliminary NO GROWTH AFTER 48 HOURS 10/24/19 06:00 Blood Blood Culture - Preliminary NO GROWTH AFTER 48 HOURS Narrative: Patient is in no distress this morning. Lung exam reveals improved aeration with continued rales at the bases. Heart has a regular rate and rhythm this morning. Abdomen is obese. Lower extremities are wrapped in Unna boots Assessment and Plan (1) Enterococcus faecalis infection Current visit: Yes Status: Acute Category: Medical Code(s): B95.2 - Enterococcus as the cause of diseases classified elsewhere (2) Acute on chronic congestive heart failure with left ventricular diastolic dysfunction Current visit: Yes Status: Acute Category: Medical Code(s): I50.33 - Acute on chronic diastolic (congestive) heart failure (3) Acute on chronic congestive heart failure with right ventricular diastolic dysfunction Current visit: Yes Status: Acute Category: Medical Code(s): I50.82 - Biventricular heart failure; I50.33 - Acute on chronic diastolic (congestive) heart failure (4) Chronic venous stasis Current visit: No Status: Acute Category: Medical Code(s): I87.8 - Other specified disorders of veins (5) Sepsis Current visit: No Status: Acute Qualifiers: Sepsis acute organ dysfunction status: with acute organ dysfunction Severe sepsis acute organ dysfunction type: acute renal failure Category: Medical Code(s): A41.9 - Sepsis, unspecified organism (6) Uncontrolled diabetes mellitus Current visit: No Status: Acute Category: Medical Code(s): E11.65 - Type 2 diabetes mellitus with hyperglycemia (7) Cardiomyopathy Current visit: No Status: Chronic Qualifiers: Cardiomyopathy type: ischemic Qualified Code(s): I25.5 - Ischemic cardiomyopathy Category: Medical Code(s): I42.9 - Cardiomyopathy, unspecified (8) HHD (hypertensive heart disease) Current visit: No Status: Chronic Qualifiers: Heart failure presence: unspecified whether heart failure present Qualified Code(s): I11.9 - Hypertensive heart disease without heart failure Category: Medical Code(s): I11.9 - Hypertensive heart disease without heart failure (9) Lymphedema in adult patient Cur
[2019-10-26 08:00] VITALS: BP 122/54; PULSE 69; RESP 17; TEMP 36.7; O2SAT 99
[2019-10-26 11:45] LABS: POC Glucose,Bedside 232 (70-110)
[2019-10-26 16:00] VITALS: BP 130/59; PULSE 74; RESP 20; TEMP 36.8; O2SAT 94
[2019-10-26 17:03] LABS: POC Glucose,Bedside 172 (70-110)
[2019-10-26 18:09] VITALS: O2SAT 92
[2019-10-26 19:36] VITALS: BP 129/67; PULSE 65; RESP 18; TEMP 36.9; O2SAT 94
--- NOTE | 2019-10-26 20:05 | PC.NURSE ---
Pt alert and oriented and able to make needs known. RR even and unlabored on 1.5 L. Has had no complaints. CB in reach. Did note faint wheeze in RLL. Pt states he did have a BM today and ambulated x 1 assist to the bathroom. CB in reach. Have given meds per aug. FSBS with ssi continues. VSS.
[2019-10-26 20:49] LABS: POC Glucose,Bedside 198 (70-110)
--- NOTE | 2019-10-27 03:38 | PC.NURSE ---
Pt alert and oriented, makes needs known. Discussed diabetes and repercussions of disease, eyesight, limbs, neuropathy, pt acknowledged and voiced, I know, I've taken enough of that shit all my life. No further discussion concerning diabetes. Further discussed pt's 2+ leg edema and sitting in the chair. Pt finally agreed to put legs us and lay back in the recliner for a bit. Round following 2029 at 2100 pt had legs back down and sleeping. Unna boots remain on lower extremities, nonskid socks in place. Pt c/of pain, I hurt all over, but my back is the worst. Pt requested 15mg of pain med and not the 30mg ordered which was given per pt request, pt sleeping more so than not on rounds. Vital signs stable, oxygen saturation 94% with 02 1.5L NC. Pt remains safe, call light w/i reach, monitoring continues.
[2019-10-27 04:00] VITALS: BP 121/58; PULSE 60; RESP 16; TEMP 36.6; O2SAT 95
[2019-10-27 05:00] VITALS: BMI 43.0
[2019-10-27 06:31] LABS: POC Glucose,Bedside 122 (70-110)
[2019-10-27 08:00] VITALS: BP 146/83; PULSE 67; RESP 18; TEMP 37; O2SAT 97
--- NOTE | 2019-10-27 08:16 | HMH.DCSUM ---
General - General Admission date:: 10/18/19 Discharge date: 10/27/19 HPI HPI: 79-year-old male with history of heart failure presented to the emergency department with progressive dyspnea on exertion over the last 3 days. Patient reports that normally he could walk 100 feet with brief stops without getting significantly short of breath. Over the last 3 days he could only walk about 25 feet before he became short of breath. Patient sees local cardiology and had been in their clinic last week and had admitted to not being on his diuretics due to recent travel. He reports since that appointment last Friday he has been taking his medicines regularly and feels like he is gradually losing fluid. Patient had a pacemaker approximately 2 weeks ago and reports some fever after his pacemaker implantation but no complaints of pain around the pacemaker site. Patient has a history of chronic venous insufficiency and lymphedema. Patient has had lower extremity wounds in the past but reports no pain in the legs that have him suspicious for a wound. On evaluation in the emergency department patient was hypoxemic on a blood gas. Chest x-ray did not reveal an infiltrate. White blood cell count was mildly elevated and this was suspected to be due to developing cellulitis in the lower extremities. Patient was admitted and placed on IV vancomycin and Rocephin. This morning the patient reports feeling significantly better. However he continues to wear the nasal cannula which is supplying oxygen at 4 L/min. Patient has oxygen at home set to 2 L/min which he uses intermittently but he admits he does not want to become dependent on it. He denies chest pain, cough. Hospital Course Hospital Course: Patient was admitted and met criteria for sepsis and was treated as such. Within 48 hours of admission his blood cultures turned positive for Enterococcus faecalis in all culture bottles. After that point patient had been on Rocephin and vancomycin. Antibiotics were adjusted to ampicillin. Source of patient's infection was felt to be his legs which have fibrotic scarring from chronic lymphedema and venous insufficiency and had some weeping superficial ulcers. Legs themselves were severely edematous but only had minimal erythema and tenderness. There was no other source of infection identified. Patient completed a 7-day course of ampicillin intravenously to treat his enterococcus. Repeat cultures performed 72 hours prior to discharge were negative. On October 26 patient was discharged home in stable condition Patient developed acute kidney injury from his sepsis and this was treated with gentle IV fluid hydration and discontinuation of nephrotoxic medications for a few days during hospitalization. Patient takes spironolactone and Lasix. Unfortunately holding these medications and giving the patient fluids led to some mild fluid overload. Patient was ultimately able to be started on his medications prior to discharge. Patient also developed urinary retention while hospitalized. He required insertion of a Abebe catheter on 2 occasions. Patient was started on Flomax and this seemed to improve urination by discharge. Patient will go home without a Abebe catheter Patient is a longstanding diabetic. He will resume his home insulin schedule at discharge Patient has longstanding lymphedema and venous insufficiency. His legs were wrapped in Unna boots early in the hospitalization. Patient will need home health for continued monitoring of his lower extremities and reapplication of Unna boots. Patient is quite weak from his hospitalization. Patient required use of a walker to ambulate. He will need to continue physical therapy through home health. Patient has COPD and uses oxygen intermittently. He remained on oxygen during the entire hospitalization. He will need to continue oxygen use 24 hours/day. Patient has chronic anemia which worsened slightly during hospi
--- NOTE | 2019-10-27 09:38 | HMH.PHAINT ---
DISCHARGE COUNSELING COMPLETE. SPOKE WITH THE PATIENT REGARDING ADDITION OF TAMSULOSI AND TO WATCH FOR ORTHOSTASIS. DISCUSSED DECREASE IN GABAPENTIN FROM FOUR TIMES A DAY TO ONCE NIGHTLY AND THE STOPPAGE OF AMLODIPINE. PATIENT ENDORSED NO QUESTIONS AT THIS TIME.
--- NOTE | 2019-10-27 10:27 | SW/DCPLANNER ---
RECEIVED REFERRAL FOR HOME HEALTH SERVICES FOR THIS PATIENT: I WENT IN TO SEE PATIENT AND HE STATED HE HAS USED [facility] IN THE PAST AND WISHES TO CONTINUE TO USE THEM AGAIN.. I SENT REFERRAL AND ORDERS TO [facility] AND ASKED FOR PATIENT TO BE SEEN IN THE AM.. PATIENT WILL DISCHARGE LATER IN THE DAY...
== END 2019-10-27 10:45 | disposition home or self-care (01) | DRG 871 ==
LOC: ER 20:56 → 2ND 22:51
PROVIDERS: Admitting Provider Family Medicine; Emergency Provider Emergency Medicine; PCP Nurse Practitioner; Visit Provider Family Medicine
DX: A41.81 Sepsis due to Enterococcus (principal); I50.33 Acute on chronic diastolic (congestive) heart failure; N17.9 Acute kidney failure, unspecified; I13.0 Hypertensive heart and chronic kidney disease with heart failure and stage 1 through stage 4 chronic kidney disease, or unspecified chronic kidney disease; Z68.41 Body mass index [BMI] 40.0-44.9, adult; R65.20 Severe sepsis without septic shock; E11.22 Type 2 diabetes mellitus with diabetic chronic kidney disease; E11.65 Type 2 diabetes mellitus with hyperglycemia; N18.3 Chronic kidney disease, stage 3 (moderate); Z79.4 Long term (current) use of insulin; E03.9 Hypothyroidism, unspecified; I25.5 Ischemic cardiomyopathy; I25.2 Old myocardial infarction; E66.01 Morbid (severe) obesity due to excess calories; Z95.0 Presence of cardiac pacemaker; Z95.5 Presence of coronary angioplasty implant and graft; Z79.899 Other long term (current) drug therapy; I25.10 Atherosclerotic heart disease of native coronary artery without angina pectoris; I89.0 Lymphedema, not elsewhere classified; I87.2 Venous insufficiency (chronic) (peripheral)
CPT/HCPCS: 36415; 71045; 80048; 80053; 80202; 81001; 82803; 82962; 83605; 83735; 83880; 85007; 85025; 85651; 86140; 86850; 87040; 87077; 87186; 93005; 94640; 94761; 96365; 96372; 97110; 97116; 97161; 99284; 99285; J0290; J3370

== ENCOUNTER 2019-11-19 08:50 | Outpatient (CLI) | payer MEDICARE, SELFPAY ==
[2019-11-19 09:15] VITALS: BP 116/49; PULSE 85; RESP 20; TEMP 36.8
[2019-11-19 09:45] VITALS: BP 114/53; PULSE 79; RESP 18
== END 2019-11-19 09:55 | disposition home or self-care (01) ==
LOC: INF 08:57
PROVIDERS: Visit Provider Nurse Practitioner Family
DX: D50.9 Iron deficiency anemia, unspecified (principal); N18.4 Chronic kidney disease, stage 4 (severe)
CPT/HCPCS: 96365; J1439

== ENCOUNTER 2019-11-25 08:54 | Outpatient (CLI) | payer MEDICARE, SELFPAY ==
[2019-11-25 08:54] VITALS: BP 108/66; PULSE 68; RESP 20; TEMP 36.9; O2SAT 95
[2019-11-25 09:30] VITALS: BP 123/74; PULSE 68; RESP 20; TEMP 36.9; O2SAT 95
== END 2019-11-25 09:30 | disposition home or self-care (01) ==
LOC: INF 08:54
PROVIDERS: Visit Provider Nurse Practitioner Family
DX: D50.9 Iron deficiency anemia, unspecified (principal); N18.4 Chronic kidney disease, stage 4 (severe)
CPT/HCPCS: 96365; J1439

== ENCOUNTER → 2020-01-14 11:11 | Outpatient (CLI) | payer MEDICARE, SELFPAY ==
[2020-01-14 11:19] LABS: Microscopic, Urine URINE MICROSCOPIC (MICROSCOPIC)
[2020-01-14 11:46] LABS: Appearance,Urine CLEAR (Clear); Bilirubin,Urine Negative (Negative); Blood, Urine Negative (Negative); Color,Urine YELLOW (Yellow); Glucose,Urine (UA) Negative (Negative); Ketones,Urine Negative (Negative); Leukocyte Esterase,Urine Negative (Negative); Nitrate,Urine Negative (Negative); PH,Urine 5.5 (5.0-8.5); Protein,Urine Negative (Negative); Urobilinogen,Urine 0.2 EU/dl (0.2)
[2020-01-14 11:48] LABS: Creatinine,Urine Random 66 mg/dL (Not Estab.)
[2020-01-14 12:09] LABS: Bacteria,Urine Trace /lpf
[2020-01-14 12:26] LABS: 25-OH Vitamin D, Total 15.1 ng/mL (30-100)
[2020-01-14 12:58] LABS: Albumin Level 3.3 g/dl (3.5-5.0); Anion Gap 12.3 mEq/L (5-15); Blood Urea Nitrogen 28 mg/dl (9-20); Calcium 9.2 mg/dl (8.4-10.2); Carbon Dioxide 29 mmol/L (22.0-30.0); Chloride 100 mmol/L (98-107); Estimated Glomerular Filt Rate 33 ml/min (>60); GFR (African American) 39 ML/MIN (>60); Glucose 278 mg/dl (74-100); Phosphorous 3.6 mg/dl (2.5-4.5); Potassium 4.3 mmoL/L (3.5-5.1); Sodium 137 mmol/L (136-145); Uric Acid 9.9 mg/dl (3.5-8.5)
[2020-01-14 13:09] LABS: Intact Parathyroid Hormone 24.7 pg/mL (7.5-53.5)
== END ==
PROVIDERS: Visit Provider Internal Medicine Nephrology
DX: N18.3 Chronic kidney disease, stage 3 (moderate) (principal); E11.21 Type 2 diabetes mellitus with diabetic nephropathy; I10 Essential (primary) hypertension; E78.5 Hyperlipidemia, unspecified; E55.9 Vitamin D deficiency, unspecified
CPT/HCPCS: 36415; 80069; 81001; 82306; 82570; 83970; 84155; 84550

== ENCOUNTER → 2020-01-21 13:35 | Outpatient (POV) | payer MEDICARE, SELFPAY | PROVIDERS: PCP Nurse Practitioner; Visit Provider Internal Medicine Nephrology | DX: Z00.00 Encounter for general adult medical examination without abnormal findings (principal) ==

== ENCOUNTER → 2020-04-18 09:30 | Outpatient (POV) | payer MEDICARE, SELFPAY | PROVIDERS: Visit Provider Dermatology | DX: Z00.00 Encounter for general adult medical examination without abnormal findings (principal) ==

== ENCOUNTER → 2020-05-30 07:03 | Outpatient (CLI) | payer MEDICARE, SELFPAY ==
--- NOTE | 2020-05-30 07:04 | NM_ITS ---
APPROVED REPORT Exam: Nuclear Stress Test Indication: SOB, Pacemaker, CAD, CHF, HTN, DM, High cholesterol, Family history Patient Location: Outpatient Stress Tech: Lois Todd [place] Tech:Destiny Gomez, ARRT, RT (R)(N) Ht: 5 ft 8 in Wt: 294 lbs HR: 60 bpm BP: 147/62 mmHg BSA: 2.41 m2 BMI: 44.6 History: SOB, Pacemaker, CAD, CHF, HTN, DM, High cholesterol, Family history Procedure: Patient received a 0.4 mg of intravenous Lexiscan, resting heart rate 60 bpm, resting blood pressure 147/62 mmHg, with Lexiscan maximum heart rate achived was 70 bpm which is Less than 85 % of the maximum predicted heart rate and blood pressure was 159/74 mmHg. With Lexiscan, patient denied any complaint of chest pain. Electrocardiogram Resting electrocardiogram showed sinus rhythm, with Lexiscan there is less than 1.[address] segment depression noted from the baseline EKG. The EKG portion of the Lexiscan is nondiagnostic. Cardiac Stress and Resting SPECT Images: Cardiac Stress and Resting SPECT images were obtained using technetium 99m Myoview 31.7 mCi stress and 10.42 mCi at rest. Gated SPECT for analysis of segmental wall motion and calculation of the ejection fraction also done. Cardiac stress and resting SPECT images show fixed defect in the inferior wall with normal contractility on gated SPECT is likely secondary to diaphragmatic attenuation, prone images were not obtained. Computer derived ejection fraction 56% with no regional wall motion abnormality, right ventricle is normal size and contractility. Conclusion: 1. The EKG portion of the Lexiscan Myoview is nondiagnostic . 2. No obvious scintigraphic evidence of reversible ischemia seen, computer derived ejection fraction is 56% with no regional wall motion abnormality, right ventricle is normal size and contractility. 3. Likely normal Lexiscan Myoview study. Electronically signed by : René De León, 05/31/2020 06:31:23
--- NOTE | 2020-05-30 07:04 | CA_ITS ---
APPROVED REPORT Exam: Pharmacologic Technologist: Lois Todd Ht: 5 ft 8 in Wt: 297 lbs BSA: 2.42 m2 HR: 60 bpm BP: 147/62 mmHg Indications: Shortness of Breath, CArotid Bruit bilat Medical History Medications: Lisinopril,,,,, Furosemide (LASIX),,,,, Isosorbide,,,,, Aspirin,,,,, Ferrous sulfate,,,,, Gabapentin,,,,, Vitamin D3,,,,, Allopurinol,,,,, Atorvastatin,,,,, TAMSULOSIN,,,,, INSULIN,,,,, Albuterol,,,,, Stress Test Details Test: LEXISCAN HR Resting HR: 63 bpm Max Heart Rate (APMHR): 143 bpm Max HR Achieved: 73 bpm Target HR (85% APMHR): 121 bpm % of APMHR: 51 Recovery HR: 71 bpm BP Resting BP: 147.0/62.0 mmHg Max BP: 159.0/64.0 mmHg Recovery BP: 155.0/63.0 mmHg ECG Clinical Exercise duration: 04:00 min Highest Stage Achieved: Stress ECG Conclusion Resting EKG: Normal sinus rhythm, PVCs, cannot rule out old septal MN, ST-T abnormalities inferiorly Symptoms: Mild shortness of air. No chest pain Arrhythmias/Ectopy: Occasional PVC. Rare PAC. ST-T Changes: No significant changes. Conclusion: Unremarkable Lexiscan stress. Myoview images reported separately. Test Summary REST . . . . . . . Resting REST 06:05 . . 63 . 147/ 62 . . Stage 1 . . . . . . . Myoview Injected Stage 1 01:00 . . 73 . . . . Stage 2 01:00 . . 70 . . . . Stage 3 01:00 . . 70 . 159/ 64 . . Stage 4 01:00 . . 71 . 154/ 70 . Stop exercise at 04:00 RECOVERY 01:00 . . 70 . . . . RECOVERY 02:00 . . 70 . 159/ 74 . . RECOVERY 03:00 . . 69 . 159/ 74 . . RECOVERY 04:00 . . 70 . 155/ 63 . . Electronically signed by : René De León, 05/31/2020 06:22:02
--- NOTE | 2020-05-30 08:45 | HMH.ITSHM ---
Current Home Medications as stated by this patient Johnathon Ellsworth or senior account representative. []LORATIDINE MAGNESIUM METHOCARBAMAL MONTELUKAST OXYCODONE POTASSIUM SPIRONOLACTONE TAMSULOSIN ALBUTEROL ALLOPURINOL ASA ATORVASTATIN BISOPROLOL D3 CLOPIDOGREL FERROUS SULFATE FLUTICASONE FUROSEMIDE GABAPENTIN INSULIN ISOSORBIDE LISINOPRIL
== END ==
PROVIDERS: PCP Nurse Practitioner; Visit Provider Nurse Practitioner Family
DX: E78.5 Hyperlipidemia, unspecified (principal); I25.10 Atherosclerotic heart disease of native coronary artery without angina pectoris; I50.23 Acute on chronic systolic (congestive) heart failure; I50.9 Heart failure, unspecified; N28.9 Disorder of kidney and ureter, unspecified; R06.00 Dyspnea, unspecified; R20.0 Anesthesia of skin; Z95.0 Presence of cardiac pacemaker; R09.89 Other specified symptoms and signs involving the circulatory and respiratory systems; I11.0 Hypertensive heart disease with heart failure
CPT/HCPCS: 78452; 93017; 93880; A9502; J2785

== ENCOUNTER → 2020-06-13 07:57 | Outpatient (POV) | payer MEDICARE, SELFPAY | PROVIDERS: Visit Provider Dermatology | DX: Z00.00 Encounter for general adult medical examination without abnormal findings (principal) ==

== ENCOUNTER 2020-07-28 09:39 | Emergency (ER) | payer MEDICARE, SELFPAY ==
[2020-07-28 09:40] VITALS: BP 133/60; PULSE 80; RESP 20; TEMP 36.6; O2SAT 96; BMI 41.0
--- NOTE | 2020-07-28 09:49 | HMH.EDEXTP ---
ED Disposition Clinical Impression: Cellulitis of leg, right, Hyperglycemia Disposition: Home, Self-Care Condition on Discharge: Good Instructions: DI for Cellulitis -- Adult, DI for Hyperglycemia -- Adult Additional Instructions: Stop taking clindamycin and start doxycycline. Prescriptions: Doxycycline Hyclate [Doxycycline 100mg Capsule] 100 mg PO BID 7 Days #14 cap Transmission Status: Pending to [id number] Referrals: Shraddha Sanders APRN [Primary Care Provider] - 3 days - Critical Care Critical Care Time: No Attestation: On , the high probability of a clinically significant, sudden or life threatening deterioration of the following system(s) required my full and direct attention, intervention and personal management. The time I documented below is in addition to time spent performing reported procedures but includes the following listed in this critical care notation. Medical Decision Making - Medical Records Medical records reviewed: Yes: I reviewed the patient's medical records. - Kehinde Inquiry Pt receiving controlled substance: No Vital Signs: 07/28/20 09:40 Temperature 97.9 F Temperature Source Oral Pulse Rate [Left Radial] 80 Respiratory Rate 20 Blood Pressure [Right Arm] 133/60 Blood Pressure Mean [Right Arm] 84 Blood Pressure Source [Right Arm] Automatic Cuff Blood Pressure Position [Right Arm] Sitting 02 Sat by Pulse Oximetry 96 Oxygen Delivery Method Room Air - Lab Data Lab results reviewed: Yes: I reviewed the patient's lab results. Lab Results 07/28/20 10:10: WBC 14.3 H, RBC 4.44 L, Hgb 11.5 L, Hct 37.4 L, MCV 84.1, MCH 25.8 L, MCHC 30.7 L, RDW 15.2, Plt Count 406, MPV 8.0, Neut % (Auto) 90.4 H, Lymph % (Auto) 4.9 L, [place] % (Auto) 3.2, Eos % (Auto) 1.4, Baso % (Auto) 0.1, Neut # (Auto) 13.0 H, Lymph # (Auto) 0.7, [place] # (Auto) 0.5, Eos # (Auto) 0.2, Baso # (Auto) 0.0 07/28/20 10:10: Sodium 134 L, Potassium 4.2, Chloride 96 L, Carbon Dioxide 27, Anion Gap 15.2 H, BUN 33 H, Creatinine 2.00 H, Estimated Creat Clear 53, Estimated GFR 32 L, Est GFR ( Amer) 39 L, Glucose 347 H, Calcium 9.3 Result diagrams: 07/28/20 10:10 07/28/20 10:10 Orders (Tests/Meds): ORDERS Category Date Time Status Complete Blood Count Auto Diff Stat Lab 07/28/20 10:10 Results Medical Decision Narrative: Patient with elevated white blood cell count and elevated glucose indicating likely cellulitis. No other signs/indications of sepsis other infection his white blood cell count. Wound care clinic performed wound culture and that will be sent. Patient currently on clindamycin, but I will switch him to doxycycline for some improved coverage given his history of diabetes. Patient is afebrile here, appropriate for attempt at outpatient antibiotic management. Currently there is no indication of septic joint, abscess. Discharged home. Extremity Problem HPI - General Stated complaint: possible infection on legs Time Seen by Provider: 07/28/20 09:49 Mode of Arrival: Ambulatory Source of Information: Patient, Medical Record Limitations: No Limitations - History of Present Illness HPI Narrative: This is a 80-year-old male with a past medical history significant for hypertension, hyperlipidemia, diabetes, cardiomyopathy, coronary artery disease, chronic lymphedema who presents to the emergency department for concerns of possible cellulitis on the right lower extremity. Patient states that for 2 to 3 days his blood sugars have been running in the 300 range (usually in the 200s), and that he has had increased drainage from his right lower extremity and redness that has been creeping up his leg now towards his thigh. No fevers,vomiting, diarrhea. He goes to wound care regularly and they did culture the wound, but sent him here to check to see if he needed different antibiotics. He is currently on an antibiotic prescribed by his primary care doctor for 14 days, but does not remember the
[2020-07-28 09:53] VITALS: BP 131/53; PULSE 81; O2SAT 97
[2020-07-28 10:20] VITALS: BP 133/60; PULSE 79; O2SAT 97
[2020-07-28 10:20] LABS: Basophils % 0.1 % (0.1-2.0); Eosinophils # 0.2 K/mm3 (0.0-0.4); Eosinophils % 1.4 % (0.1-12.0); Hematocrit 37.4 % (42.0-52.0); Hemoglobin 11.5 g/dL (14.1-18.0); Lymphocytes # 0.7 K/mm3 (0.7-4.5); Lymphocytes % 4.9 % (10-50); Mean Corpuscular HGB Conc 30.7 g/dL (31.8-35.4); Mean Corpuscular Hemoglobin 25.8 pg (27.0-31.2); Mean Corpuscular Volume 84.1 fl (80-94); Monocytes # 0.5 K/mm3 (0.1-1.0); Monocytes % 3.2 % (1.7-9.3); Neutrophils % 90.4 % (37.0-80.0); Platelet Count 406 K/mm3 (142-424); Red Blood Count 4.44 M/mm3 (4.60-6.20); Red Cell Distribution Width 15.2 % (11.5-17.5); White Blood Count 14.3 K/mm3 (4.8-10.8)
[2020-07-28 10:27] LABS: MANUAL DIFFERENTIAL MANUAL DIFFERENTIAL (MANUAL DIFF)
[2020-07-28 10:29] LABS: Anion Gap 15.2 mEq/L (5-15); Blood Urea Nitrogen 33 mg/dl (9-20); Calcium 9.3 mg/dl (8.4-10.2); Carbon Dioxide 27 mmol/L (22.0-30.0); Chloride 96 mmol/L (98-107); Creatinine Clearance Estimated 53 mL/min (50-200); Estimated Glomerular Filt Rate 32 ml/min (>60); GFR (African American) 39 ML/MIN (>60); Glucose 347 mg/dl (74-100); Potassium 4.2 mmoL/L (3.5-5.1); Sodium 134 mmol/L (136-145)
[2020-07-28 10:50] LABS: Eosinophils % 2 % (0-3); Lymphocytes % 2 % (10-50); Monocytes % 7 % (2-9); Neutrophils % 89 % (42-76); Platelet Estimate Normal; RBC Morphology Normal; Total Cells Counted 100
--- NOTE | 2020-07-28 10:50 | PC.NURSE ---
Josep Velasquez, Rehab at bedside dressing wounds.
[2020-07-28 11:07] VITALS: BP 152/88; PULSE 78; RESP 22; TEMP 36.6; O2SAT 98
== END 2020-07-28 11:09 | disposition home or self-care (01) ==
PROVIDERS: Emergency Provider Emergency Medicine; PCP Nurse Practitioner
DX: L03.115 Cellulitis of right lower limb (principal); E11.65 Type 2 diabetes mellitus with hyperglycemia; I10 Essential (primary) hypertension; E78.5 Hyperlipidemia, unspecified; K21.9 Gastro-esophageal reflux disease without esophagitis; E03.9 Hypothyroidism, unspecified; I25.10 Atherosclerotic heart disease of native coronary artery without angina pectoris
CPT/HCPCS: 80048; 85007; 85025; 87070; 87077; 87186; 87205; 99282

== ENCOUNTER 2020-08-28 14:00 | Outpatient (RCR) | payer MEDICARE, SELFPAY | END 2020-08-28 14:05 | disposition home or self-care (01) | LOC: PT 14:00 | PROVIDERS: PCP Nurse Practitioner; Visit Provider Nurse Practitioner | DX: I89.0 Lymphedema, not elsewhere classified (principal) | CPT/HCPCS: 29580; 97163; 97164; 97597 ==

== ENCOUNTER 2020-09-01 11:33 | Observation (INO) | payer MEDICARE, SELFPAY ==
--- NOTE | 2020-09-01 11:39 | XR_ITS ---
PROCEDURE: XR CHEST PORTABLE CLINICAL HISTORY: cough Cough and shortness of air COMPARISON: CT CHESTWO CT chest wo con from 03/23/2018 CR XR CHEST 2V from 07/09/2019 CR XR CHEST PORTABLE from 10/06/2019 CR XR CHEST PORTABLE from 10/18/2019 FINDINGS: There are low lung volumes. There is mild cardiomegaly with bipolar pacemaker present from left subclavian approach. Atelectatic changes are present in the right lung base. The left lung is clear. There is an old left 8th rib fracture. No acute bony abnormalities. IMPRESSION: Right basilar atelectasis. Dictated by: Trace Nair MD 09/01/2020 14:54 Trace Nair MD in [place] 09/01/2020 14:54
[2020-09-01 12:01] VITALS: BP 156/60; PULSE 75; RESP 19; TEMP 36.9; O2SAT 96; BMI 45.0
[2020-09-01 12:57] LABS: Chloride 100 mmol/L (98-107)
[2020-09-01 12:58] LABS: Potassium 4.3 mmoL/L (3.5-5.1); Sodium 141 mmol/L (136-145)
[2020-09-01 13:00] LABS: Alanine Aminotransferase 15 U/L (12-78); Aspartate Amino Transferase 19 U/L (17-59); Blood Urea Nitrogen 31 mg/dl (9-20); Creatinine Clearance Estimated 29 mL/min (50-200); Estimated Glomerular Filt Rate 32 ml/min (>60); GFR (African American) 39 ML/MIN (>60)
[2020-09-01 13:01] LABS: Albumin/Globulin Ratio 1.2 (1.1-1.8); Alkaline Phosphatase 87 U/L (38-126); Anion Gap 9.3 mEq/L (5-15); Bilirubin,Total 0.4 mg/dl (0.2-1.3); Calcium 9.9 mg/dl (8.4-10.2); Carbon Dioxide 36 mmol/L (22.0-30.0); Globulin 3.4 g/dL (1.3-3.2); Glucose 120 mg/dl (74-100); Lactic Acid 1.5 mmol/L (0.7-2.1); Magnesium 2.1 mg/dl (1.6-2.3); Total Protein,Serum 7.4 g/dl (6.3-8.2)
[2020-09-01 13:24] LABS: Basophils % 0.3 % (0.1-2.0); Eosinophils # 0.1 K/mm3 (0.0-0.4); Eosinophils % 1.2 % (0.1-12.0); Hematocrit 32.9 % (42.0-52.0); Hemoglobin 9.6 g/dL (14.1-18.0); Lymphocytes # 0.9 K/mm3 (0.7-4.5); Lymphocytes % 10.3 % (10-50); Mean Corpuscular HGB Conc 29.2 g/dL (31.8-35.4); Mean Corpuscular Hemoglobin 24.4 pg (27.0-31.2); Mean Corpuscular Volume 83.7 fl (80-94); Mean Platelet Volume 7.6 fl (7.4-10.4); Monocytes # 0.4 K/mm3 (0.1-1.0); Monocytes % 4.8 % (1.7-9.3); Neutrophils # 7.4 K/mm3 (1.8-7.8); Neutrophils % 83.4 % (37.0-80.0); Platelet Count 341 K/mm3 (142-424); Red Blood Count 3.92 M/mm3 (4.60-6.20); Red Cell Distribution Width 15.5 % (11.5-17.5); White Blood Count 8.8 K/mm3 (4.8-10.8)
--- NOTE | 2020-09-01 13:52 | PC.WOUNDNOTE ---
Wound Location: RIGHT LOWER EXTREMITY Length: 0.5 CM Width: 1.0 CM Inflammation/swelling Y/N:Y Pain and/or tenderness Y/N:N Exudate: Serosanguinous Color: [place] Red Consistency: Thin Amount: Scant Odor Y/N:Y OPENED AREA ON LOWER RIGHT EXTREMITY.
[2020-09-01 13:53] LABS: Troponin I < 0.01 ng/ml (0.00-0.034)
--- NOTE | 2020-09-01 13:56 | PC.WOUNDNOTE ---
Wound Location: RIGHT EXTREMITY Inflammation/swelling Y/N:Y Pain and/or tenderness Y/N:Y Color: [place] Red WHITE Consistency: Thick Odor Y/N:Y LYMPHOMA NOTED ON RIGHT LOWER EXTREMITY.
--- NOTE | 2020-09-01 13:58 | PC.WOUNDNOTE ---
Wound Location: LEFT LOWER EXTREMITY Length: 3CM Width: 1CM Inflammation/swelling Y/N:Y Pain and/or tenderness Y/N: Y Exudate: Purulent Color: Green Yellow Consistency: Thick Amount: Small Odor Y/N:N LYMPHOMA NOTED ON LEFT LOWER EXTREMITY.
[2020-09-01 14:03] LABS: C-Reactive Protein 32.6 mg/L (0-4)
--- NOTE | 2020-09-01 14:03 | HMH.PHACONS ---
- Pharmacy Consult Date: 09/01/20 Time: 14:04 Referring provider: DR. BUTLER Reason for Consult:: VANCOMYCIN DOSING Allergies and ADEs:: Allergies Allergy/AdvReac Type Severity Reaction Status Date / Time morphine Allergy Severe Swelling Verified 09/01/20 13:53 of Lip/Tongue/Throat Home Medications:: Home Medications Medication Instructions Recorded Confirmed Type methocarbamoL [Methocarbamol 500mg 500 mg PO BID 07/17/17 09/01/20 History Tablet] Albuterol Sulfate [Albuterol 2.5 mg IH QID 10/05/17 09/01/20 History Sulfate 2.5mg/0.5ml Neb] Clopidogrel Bisulfate [Plavix 75mg 75 mg PO DAILY 03/23/18 09/01/20 History Tab] insulin human U-100 NPH-regulr 90 unit SQ TID ml 05/11/18 09/01/20 History 70-30 mix 100 unit/mL subcutaneous susp aspirin 81 mg tablet,delayed 81 mg PO DAILY 05/26/18 09/01/20 History release furosemide 80 mg tablet 80 mg PO DAILY tab 07/14/18 09/01/20 History Ferrous Sulfate [Iron] 325 mg PO BID 03/23/19 09/01/20 History Isosorbide Mononitrate [Imdur 30mg 30 mg PO DAILY 03/23/19 09/01/20 History ER tablet] Ipratropium [place] [Atrovent 0.5 mg IH QID 03/24/19 09/01/20 History 0.5mg/2.5mL neb] bisoprolol fumarate 5 mg tablet 5 mg PO DAILY #30 tab 04/08/19 09/01/20 Rx Spironolactone [Spironolactone 25 mg PO BID 07/09/19 09/01/20 History 25mg Tablet] cholecalciferol (vitamin D3) 1,250 1,250 mcg PO QWEEK cap 09/28/19 09/01/20 History mcg (50,000 unit) capsule lisinopril 40 mg tablet 40 mg PO DAILY tab 09/28/19 09/01/20 History potassium chloride 20 mEq 20 meq PO DAILY tab 09/28/19 09/01/20 History tablet,extended release Albuterol Sulfate [Ventolin HFA 1 - 2 puffs IH Q4-6H PRN 10/19/19 09/01/20 History Inhaler] Atorvastatin Calcium [Lipitor 40mg 40 mg PO HS 10/19/19 09/01/20 History Tab] Fluticasone/Vilanterol [Breo 1 inh IH DAILY 10/19/19 09/01/20 History Ellipta 100-25 Mcg INH] Loratadine [Allergy] 10 mg PO DAILY 10/19/19 09/01/20 History Montelukast Sodium [Singulair 10mg 10 mg PO PM 10/19/19 09/01/20 History tablet] Oxycodone HCl 30 mg PO Q6HP PRN 10/20/19 09/01/20 History Gabapentin 800 mg PO HS #0 tab 10/26/19 09/01/20 Rx Tamsulosin HCl [Flomax 0.4mg 0.4 mg PO HS 11/19/19 09/01/20 History capsule] allopurinol 100 mg tablet 300 mg PO DAILY tab 02/15/20 09/01/20 History magnesium oxide 400 mg PO DAILY tab 05/17/20 09/01/20 History Height: 1.73 m Weight: 134.263 kg Laboratory Results:: Laboratory Results - last 24 hr 09/01/20 12:40: WBC 8.8, RBC 3.92 L, Hgb 9.6 L, Hct 32.9 L, MCV 83.7, MCH 24.4 L, MCHC 29.2 L, RDW 15.5, Plt Count 341, MPV 7.6, Neut % (Auto) 83.4 H, Lymph % (Auto) 10.3, [place] % (Auto) 4.8, Eos % (Auto) 1.2, Baso % (Auto) 0.3, Neut # (Auto) 7.4, Lymph # (Auto) 0.9, [place] # (Auto) 0.4, Eos # (Auto) 0.1, Baso # (Auto) 0.0 09/01/20 12:40: Sodium 141, Potassium 4.3, Chloride 100, Carbon Dioxide 36 H, Anion Gap 9.3, BUN 31 H, Creatinine 2.00 H, Estimated Creat Clear 29, Estimated GFR 32 L, Est GFR ( Amer) 39 L, Glucose 120 H, Calcium 9.9, Magnesium 2.1, Total Bilirubin 0.4, AST 19, ALT 15, Alkaline Phosphatase 87, Total Protein 7.4, Albumin 4.0, Globulin 3.4 H, Albumin/Globulin Ratio 1.2 09/01/20 12:40: Troponin I < 0.01 09/01/20 12:40: Lactate 1.5 Medical History: Reports:: Asthma, Cardiomyopathy, Congestive Heart Failure, Congenital Heart Disease, Coronary Artery Disease, Diabetes Mellitus Type 2, Gastroesophageal Reflux Disease(GERD), Hyperlipidemia, Hypertension, Internal Pacemaker, Lung Disease, Myocardial Infarction, Palpitations, Renal Disease, Renal Insufficiency, Seizures Denies:: Cancer, Diabetes Mellitus Type 1, MRSA Assessment and Plan - Assessment and plan all Dx Assessment and Plan for all problems:: BASED ON PATIENT FACTORS, RECOMMEND VANCOMYCIN 2500 MG IV Q36H. PHARMACY WILL FOLLOW DAILY AND ADJUST APPROPRIATE.
[2020-09-01 14:04] LABS: Erythrocyte Sedimentation Rate 47 mm/hr (0-20)
--- NOTE | 2020-09-01 14:05 | HMH.PTWOUND ---
Rehab Inpt Wound Evaluation Rehab IP Wound Evaluation Start: 09/01/20 11:42 Freq: ONCE Status: Active Protocol: Document 09/01/20 14:02 PARKER (Rec: 09/01/20 14:05 PHORJAIR [id number]) Rehab PT Wound Assessment Subjective Subjective 80 yowm adm to [facility] with LE cellulitis with increased edema and weeping sores. Wound Right Lateral Calf Wound Type Stasis Ulcer Is This a Chronic Wound Yes Wound Length (cm) 12.0 Wound Width (cm) 8.0 Wound Bed Appearance [place],White,Peeling Skin Wound Margins Description Macerated Surrounding Tissue Appearance [place] Edema Type Non-Pitting Edema Degree 3+ Query Text:1+ Trace, Barely Detectable, Rebound 15-30 seconds 2+ Moderate, Slight Indentation, Rebound 10-20 seconds 3+ Deep, Deeper Indentation, Rebound > 30 seconds 4+ Very Deep, Rebound > 60 seconds Edema Appearance Hard Wound Drainage Description Serous,Purulent Drainage Amount Large Wound Topical Solution/Irrigant Antibiotic Irrigant Primary Dressing Unna Boot Wound Secondary Dressing Type Gauze Roll/Wrap,Adhering Gauze Roll Wound Debridement Method Gauze Wound Debridement Amount of Tissue Minimal Removed Dressing Change Patient Tolerance Tolerated Well Plan/Recommendation Comment Continue unna boot dressings changing ever 3-4 days depending on drainage amt. Will continue to follow as outpatient once he is d/c to home. Eval Complexity Eval Charge Codes 53955 - Moderate Complexity PHYSICIAN CERTIFICATION: I certify the specified therapy services for Johnathon Ellsworth are required, authorized, and reviewed every 30 days.
[2020-09-01 14:23] LABS: NT Pro Brain Natriuretic Pep. 486 pg/mL (0-450)
[2020-09-01 16:46] LABS: POC Glucose,Bedside 177 (70-110)
[2020-09-01 16:53] VITALS: BP 136/68; PULSE 76; RESP 20; TEMP 36.9; O2SAT 93
[2020-09-01 17:14] VITALS: RESP 20; O2SAT 93
--- NOTE | 2020-09-01 17:16 | PC.NURSE ---
Addendum entered by Nina Phan RN 09/01/20 17:20: Room air sat @ rest = 93. Original Note: Pt jackelyn to nereida esposito @ 1620 per wheelchair accompanied by Nigel Corbin RN in full PPE. Pt currently sitting up in chair talking on telephone. No complaints voiced. Lungs diminished throughout. Denies having a cough. Reports that he is always SOA . Abdomen large, non-tender w/ active BS in all quads. Reports having a BM this morning. Denies difficulty voiding. BLE are wrapped in UNNA boots. Pulses palpable, edema noted in BLE as well. Cap refiiil <3 sec. Educated on use of call rivera and hospical policies. No needs voiced @ this time.
--- NOTE | 2020-09-01 18:07 | HMH.HP ---
*Admission Date: 09/01/20 *Chief complaint: cellulitis *History of present illness: Mr. Ellsworth is a 80-year-old gentleman who presented to our office today to establish care. Complex past medical history consisting of coronary artery disease, pacemaker placed earlier last year, chronic lower extremity edema with venous stasis dermatitis and recurrent cellulitis, COPD, diabetes, chronic pain on high-dose long-term opiates. Additional complex problems per past medical history. Presented to clinic to establish care due to recurrent infection in his legs. On presentation he was noted to have significant erythema, swelling, thin green drainage dripping from his legs. Afebrile with mild elevated blood pressure. Foul smell was noted upon entering the room. Reviewed his previous records available through [facility] with [facility] and noted to have history significant for chronic kidney disease with baseline creatinine 2.0, hyperglycemia, and polymicrobial cultures from his wounds on his legs. Decision was made to direct admit given comorbidities, organ dysfunction impacting antibiotic regimens, and need for IV antibiotics given recent oral antibiotic failure to treat current infection. On arrival to the floor, labs were obtained to assess kidney function, liver function, electrolytes, glucose, infection status, and screening for Covid. Interestingly patient was found to be positive for Covid on PCR though reports he is asymptomatic and has no increased shortness of breath beyond baseline. Hemodynamically stable and afebrile. Reports nighttime oxygen use of 1 to 2 L for several years. Additionally noted to have elevation in BNP with edema in legs concerning for degree of CHF. Diuresed with Lasix this afternoon which caused complaint of leg cramping. Of note, patient does not believe he has Covid and questions validity of the nasal swab. Further questioning elicits that his baseline shortness of breath has been slightly worse though not severe over the past 4 to 6 weeks. Denies any cough, loss of taste or smell, GI symptoms, myalgias. However he does use 30 mg of oxycodone four times a day for his chronic back and neck pain which controls his symptoms well. [facility] History I have reviewed the patient's past medical history: Yes Medical History: Reports:: Asthma, Cardiomyopathy, Congestive Heart Failure, Congenital Heart Disease, Coronary Artery Disease, Diabetes Mellitus Type 2, Gastroesophageal Reflux Disease(GERD), Hyperlipidemia, Hypertension, Internal Pacemaker, Lung Disease, Myocardial Infarction, Palpitations, Renal Disease, Renal Insufficiency, Seizures Denies:: Cancer, Diabetes Mellitus Type 1, MRSA *Have you ever received a pneumonia vaccine?: No *Have you received a flu vaccine this season?: No Other Medical History: Reports: Anemia, Arthritis, Hypothyroidism, Other. Denies: Blood Transfusion Reaction Laterality Cases: Right: Total Hip Replacement Other Surgeries: Yes: Appendectomy, Cardiac Catheterization, Colonoscopy, Coronary Stent, EGD, Pacemaker, Other Amputation: No Fractures: No - *Social History Last grade of school completed: 9th or 10th Smoking Status: Former smoker Tobacco Type: cigarettes Alcohol Intake: never Alcohol Intake Frequency:: other Substance Use Type: denies use *Occupational Status:: disabled Housing: house Household Members: spouse *Travel in the last 8 weeks: None Family Hx:: Coronary Artery Disease, Heart Attack, Hyperlipidemia, Hypertension, Stroke Review of Systems - Review of Systems Review of systems:: pertinent systems reviewed and negative unless documented below (14 point review of systems performed, pertinent positives and negatives as per HPI) Meds Home Medications Medication Instructions Recorded Confirmed Type methocarbamoL [Methocarbamol 500mg 500 mg PO BID 07/17/17 09/01/20 History Tablet] Albuterol Sulfate [Albuterol 2.5 mg IH QID 10/05/17 09/01/20 History Sulfate 2.5mg/0.5ml Neb] Clopidogrel
[2020-09-01 20:00] VITALS: BP 144/53; PULSE 82; RESP 18; TEMP 37.2; O2SAT 94
[2020-09-01 20:13] VITALS: PULSE 88; PULSE 89
--- NOTE | 2020-09-01 20:17 | PC.NURSE ---
Medications for eyes not available at this time. Consulted with Ari Clemens from pharmacy and advised for family to bring medication in. Called pt's and asked her if it was possible for her or other family member to bring opth solutions in. She does not know if she can, but will try.
[2020-09-01 20:37] LABS: POC Glucose,Bedside 200 (70-110)
[2020-09-02] VITALS: BP 108/87; PULSE 80; RESP 18; TEMP 37.1; O2SAT 95
[2020-09-02 04:00] VITALS: BP 161/68; PULSE 79; RESP 18; TEMP 37.1; O2SAT 97
--- NOTE | 2020-09-02 04:39 | PC.NURSE ---
shift summary pts lung sounds are diminished sats maintained above 90% on room air with a rate ranging from 18-20. pt requested to be have a NC at bedtime on 1.5L sats continued to maintain above 90%. pt is alert and oriented X$. pt uses bedside urinal, urine is clear and yellow in color.
[2020-09-02 05:00] VITALS: BMI 44.9
[2020-09-02 05:48] LABS: Basophils % 0.3 % (0.1-2.0); Eosinophils # 0.2 K/mm3 (0.0-0.4); Eosinophils % 1.9 % (0.1-12.0); Hemoglobin 9.1 g/dL (14.1-18.0); Lymphocytes # 0.9 K/mm3 (0.7-4.5); Lymphocytes % 11.2 % (10-50); Mean Corpuscular HGB Conc 29.4 g/dL (31.8-35.4); Mean Corpuscular Hemoglobin 24.3 pg (27.0-31.2); Mean Corpuscular Volume 82.5 fl (80-94); Mean Platelet Volume 8.1 fl (7.4-10.4); Monocytes # 0.4 K/mm3 (0.1-1.0); Monocytes % 5.2 % (1.7-9.3); Neutrophils # 6.5 K/mm3 (1.8-7.8); Neutrophils % 81.5 % (37.0-80.0); Platelet Count 323 K/mm3 (142-424); Red Blood Count 3.75 M/mm3 (4.60-6.20); Red Cell Distribution Width 15.6 % (11.5-17.5)
[2020-09-02 05:59] LABS: Chloride 98 mmol/L (98-107); Potassium 4.1 mmoL/L (3.5-5.1); Sodium 136 mmol/L (136-145)
[2020-09-02 06:02] LABS: Alanine Aminotransferase 12 U/L (12-78); Albumin Level 3.7 g/dl (3.5-5.0); Albumin/Globulin Ratio 1.2 (1.1-1.8); Alkaline Phosphatase 85 U/L (38-126); Anion Gap 8.1 mEq/L (5-15); Aspartate Amino Transferase 17 U/L (17-59); Bilirubin,Total 0.4 mg/dl (0.2-1.3); Blood Urea Nitrogen 31 mg/dl (9-20); Calcium 9.2 mg/dl (8.4-10.2); Carbon Dioxide 34 mmol/L (22.0-30.0); Creatinine Clearance Estimated 29 mL/min (50-200); Estimated Glomerular Filt Rate 32 ml/min (>60); GFR (African American) 39 ML/MIN (>60); Globulin 3.2 g/dL (1.3-3.2); Total Protein,Serum 6.9 g/dl (6.3-8.2)
[2020-09-02 06:02] LABS: POC Glucose,Bedside 216 (70-110)
[2020-09-02 06:07] LABS: Glucose 210 mg/dl (74-100); Hemoglobin A1C 7.6 % (4.0-6.0)
[2020-09-02 06:11] LABS: Coronavirus 19 IgG Antibody Negative (Negative); Coronavirus 19 IgM Antibody Negative (Negative)
[2020-09-02 07:52] VITALS: O2SAT 95
[2020-09-02 08:00] VITALS: BP 155/50; PULSE 76; RESP 22; TEMP 36.6; O2SAT 95
--- NOTE | 2020-09-02 08:44 | HMH.DCSUM ---
General - General Admission date:: 09/01/20 Discharge date: 09/02/20 HPI HPI: Mr. Ellsworth is a 80-year-old gentleman who presented to our office today to establish care. Complex past medical history consisting of coronary artery disease, pacemaker placed earlier last year, chronic lower extremity edema with venous stasis dermatitis and recurrent cellulitis, COPD, diabetes, chronic pain on high-dose long-term opiates. Additional complex problems per past medical history. Presented to clinic to establish care due to recurrent infection in his legs. On presentation he was noted to have significant erythema, swelling, thin green drainage dripping from his legs. Afebrile with mild elevated blood pressure. Foul smell was noted upon entering the room. Reviewed his previous records available through [facility] with [facility] and noted to have history significant for chronic kidney disease with baseline creatinine 2.0, hyperglycemia, and polymicrobial cultures from his wounds on his legs. Decision was made to direct admit given comorbidities, organ dysfunction impacting antibiotic regimens, and need for IV antibiotics given recent oral antibiotic failure to treat current infection. On arrival to the floor, labs were obtained to assess kidney function, liver function, electrolytes, glucose, infection status, and screening for Covid. Interestingly patient was found to be positive for Covid on PCR though reports he is asymptomatic and has no increased shortness of breath beyond baseline. Hemodynamically stable and afebrile. Reports nighttime oxygen use of 1 to 2 L for several years. Additionally noted to have elevation in BNP with edema in legs concerning for degree of CHF. Diuresed with Lasix this afternoon which caused complaint of leg cramping. Of note, patient does not believe he has Covid and questions validity of the nasal swab. Further questioning elicits that his baseline shortness of breath has been slightly worse though not severe over the past 4 to 6 weeks. Denies any cough, loss of taste or smell, GI symptoms, myalgias. However he does use 30 mg of oxycodone four times a day for his chronic back and neck pain which controls his symptoms well. Hospital Course Hospital Course: Patient was admitted to the hospital. Extensive record review was undertaken. Patient has significant renal dysfunction-reports that he does see a kidney physician and apparently sees him in [place] and his kidney function has been impaired for a while. He reports that he was sent to wound management/lymphedema clinic by his prior nurse practitioner who then recommended that he see a physician in the office for management of his ongoing lymphedema. Unna boots were applied which caused good control of drainage overnight and the patient has had no fever or drainage outside of the Unna boots. Blood work this morning has essentially been unchanged with no elevation of white count. Cultures from legs are showing as expected-polymicrobial Gram stain with predominance of gram-positive cocci. Patient tolerated vancomycin and Levaquin well overnight. In regards to his respiratory status has been maintained on 1 L cannula which apparently is his baseline-he reports he has oxygen therapy at home. Decision was made to discharge home on Levaquin, linezolid, follow-up with his cultures, close follow-up in the office on Friday in the [facility], and he will continue to wear his Unna boots over the weekend. We will continue his referral to lymphedema clinic at that point. Patient has multiple and complex comorbidities and will require frequent outpatient visits over the next several days to establish ongoing routine care. Patient has been on high-dose oxycodone for several years, he goes out of state to a pain clinic in [place]. We have informed him that this will not be something we will prescribe on a routine basis in our office. Objective Vital signs: Temp Pulse
[2020-09-02 09:48] VITALS: RESP 20
== END 2020-09-02 10:20 | disposition home or self-care (01) ==
LOC: 2ND 11:38 → ICU 16:35
PROVIDERS: Admitting Provider Internal Medicine Adolescent Medicine; PCP Internal Medicine Adolescent Medicine; Visit Provider Internal Medicine Adolescent Medicine
DX: L03.115 Cellulitis of right lower limb (principal); L03.116 Cellulitis of left lower limb; U07.1 COVID-19; E11.65 Type 2 diabetes mellitus with hyperglycemia; I50.22 Chronic systolic (congestive) heart failure; I13.0 Hypertensive heart and chronic kidney disease with heart failure and stage 1 through stage 4 chronic kidney disease, or unspecified chronic kidney disease; N18.30 Chronic kidney disease, stage 3 unspecified; E11.22 Type 2 diabetes mellitus with diabetic chronic kidney disease; J44.9 Chronic obstructive pulmonary disease, unspecified; Z79.4 Long term (current) use of insulin; Z79.899 Other long term (current) drug therapy; Z79.02 Long term (current) use of antithrombotics/antiplatelets; Z79.51 Long term (current) use of inhaled steroids; Z88.5 Allergy status to narcotic agent; I89.0 Lymphedema, not elsewhere classified
CPT/HCPCS: G0379; 36415; 71045; 80053; 82962; 83036; 83605; 83735; 83880; 84484; 85025; 85651; 86140; 86328; 87040; 87070; 87077; 87186; 87205; 94640; G0378; J1956; J3370; U0003

== ENCOUNTER 2020-10-02 15:19 | Observation (INO) | payer MEDICARE, SELFPAY ==
[2020-10-02] VITALS (12 sets, daily range): BP systolic 81–200; BP diastolic 52–104; PULSE 82–129; RESP 14–24; TEMP 36.7–37.1; O2SAT 92–99; BMI 45.6
--- NOTE | 2020-10-02 15:31 | XR_ITS ---
PROCEDURE: XR CHEST PORTABLE CLINICAL HISTORY: cough COMPARISON: CT CHESTWO CT chest wo con from 03/23/2018 CR XR CHEST PORTABLE from 10/06/2019 CR XR CHEST PORTABLE from 10/18/2019 CR XR CHEST PORTABLE from 09/01/2020 FINDINGS: Cardiomegaly without failure. Bipolar pacemaker is present from left subclavian approach. There are increased markings in the right lower lobe. Cannot exclude underlying atelectasis or infiltrate. Atelectatic changes are present in the left lower lobe also with increased markings in the left lung base. There are old fractures of the left 6 7th and 8th ribs. No acute bony abnormalities. IMPRESSION: Cardiomegaly with bibasilar airspace disease and left basilar atelectasis Dictated by: Trace Nair MD 10/02/2020 16:32 Trace Nair MD in [place] 10/02/2020 16:32
--- NOTE | 2020-10-02 15:32 | CA_ITS ---
APPROVED REPORT Bilateral Lower Extremity Venous Study for DVT. Lpn Rn: Jaimie Dinh RVT Indications Lower Extremity Pain: Bilateral Lower Extremity Edema: Bilateral Stasis Disease swelling Risk Factors Cardiac Disease Obesity History of Smoking CAD Vein Imaging CFV (R): compressive, spontaneous, phasic, augmentation FEM (R): compressive, spontaneous, phasic, augmentation POP (R): compressive, spontaneous, phasic, augmentation PTV (R): Compressible GSV (R): Compressible Peroneals (R):Compressible GAS (R): Compressible CFV (L): compressive, spontaneous, phasic, augmentation FEM (L): compressive, spontaneous, phasic, augmentation POP (L): compressive, spontaneous, phasic, augmentation PTV (L): Compressible GSV (L): Compressible Peroneals (L):Compressible GAS (L): Compressible Findings Study suggests no evidence of DVT of the bilateral lower extremites. Study suggests no evidence of SVT of the bilateral lower extremites. Conclusion Study suggests no evidence of DVT of the bilateral lower extremites. Study suggests no evidence of SVT of the bilateral lower extremites. Critical Notification Date: 10/02/2020 Time: 16:31 Physician Name: Dread Electronically signed by : Trace Nair MD 10/03/2020 16:39:23
--- NOTE | 2020-10-02 15:43 | ECG_ITS ---
APPROVED REPORT Exam: Resting ECG HR:109 bpm ECG Measurements Heart Rate 109 AXES QRSd 90 QRS -7 QT 336 T 21 QTc 452 Conclusion Accelerated Junctional rhythm with occasional premature ventricular complexes Low voltage QRS Cannot rule out Anterior infarct, age undetermined Abnormal ECG Electronically signed by : Rodrigo Cook, 10/03/2020 15:11:13
--- NOTE | 2020-10-02 15:51 | HMH.EDWEAK ---
ED Disposition Clinical Impression: Cellulitis of both lower extremities, Acute on chronic congestive heart failure with left ventricular diastolic dysfunction, Lymphedema in adult patient Atrial fibrillation Qualifiers: Atrial fibrillation type: unspecified chronic Qualified Code(s): I48.20 - Chronic atrial fibrillation, unspecified Anemia Qualifiers: Anemia type: due to chronic kidney disease Chronic kidney disease stage: stage 3 (moderate) Chronic kidney disease stage 3 subtype: stage 3b (GFR 30-44) Qualified Code(s): N18.32 - Chronic kidney disease, stage 3b; D63.1 - Anemia in chronic kidney disease Acute on chronic kidney failure Qualifiers: Acute renal failure type: unspecified Chronic kidney disease stage: unspecified stage Qualified Code(s): N17.9 - Acute kidney failure, unspecified; N18.9 - Chronic kidney disease, unspecified Diabetes mellitus Qualifiers: Diabetes mellitus type: type 1 Diabetes mellitus complication status: with other specified complication Qualified Code(s): E10.69 - Type 1 diabetes mellitus with other specified complication Disposition: Admitted As Inpatient Condition on Discharge: Serious Referrals: Nicholas Eaton MD [Primary Care Provider] - - Critical Care Critical Care Time: No Attestation: On 10/02/20, the high probability of a clinically significant, sudden or life threatening deterioration of the following system(s) required my full and direct attention, intervention and personal management. The time I documented below is in addition to time spent performing reported procedures but includes the following listed in this critical care notation. Medical Decision Making - Medical Records Medical records reviewed: Yes: I reviewed the patient's medical records. - Kehinde Inquiry Pt receiving controlled substance: No Vital Signs: 10/02/20 15:21 10/02/20 15:43 10/02/20 16:15 Temperature 98.0 F Temperature Source Oral Pulse Rate 109 H 82 Pulse Rate [Apical] 112 H Respiratory Rate 24 14 22 Blood Pressure 155/81 H 197/104 H Blood Pressure [Right Arm] 128/61 Blood Pressure Mean [Right Arm] 83 Blood Pressure Source [Right Arm] Automatic Cuff 02 Sat by Pulse Oximetry 95 97 94 L Oxygen Delivery Method Room Air 10/02/20 16:45 Temperature Temperature Source Pulse Rate 112 H Pulse Rate [Apical] Respiratory Rate 22 Blood Pressure 200/101 H Blood Pressure [Right Arm] Blood Pressure Mean [Right Arm] Blood Pressure Source [Right Arm] 02 Sat by Pulse Oximetry 95 Oxygen Delivery Method - Lab Data Lab Results 10/02/20 15:55: WBC 7.5, RBC 2.77 L, Hgb 6.2 L*, Hct 21.7 L*, MCV 78.1 L, MCH 22.3 L, MCHC 28.6 L, RDW 16.0, Plt Count 429 H, MPV 7.9, Neut % (Auto) 85.4 H, Lymph % (Auto) 9.0 L, [place] % (Auto) 4.5, Eos % (Auto) 1.0, Baso % (Auto) 0.1, Neut # (Auto) 6.4, Lymph # (Auto) 0.7, [place] # (Auto) 0.3, Eos # (Auto) 0.1, Baso # (Auto) 0.0, Total Counted 100, Neutrophils % (Manual) 90 H, Lymphocytes % (Manual) 6 L, Monocytes % (Manual) 4, Platelet Estimate Normal, RBC Morphology Normal 10/02/20 15:55: PT 11.8, INR 1.00, APTT 25.8 10/02/20 15:55: Sodium 138, Potassium 4.8, Chloride 104, Carbon Dioxide 28, Anion Gap 10.8, BUN 59 H, Creatinine 2.30 H, Estimated Creat Clear 26, Estimated GFR 28 L, Est GFR ( Amer) 33 L, Glucose 241 H, Calcium 8.9, Total Bilirubin 0.5, AST 20, ALT 16, Alkaline Phosphatase 82, Troponin I < 0.01, NT-Pro-B Natriuret Pep 487 H, Total Protein 6.6, Albumin 3.5, Globulin 3.1, Albumin/Globulin Ratio 1.1, Lipase 66, TSH 4.45, Acetone Level None detected 10/02/20 15:55: Lactate 2.1 10/02/20 16:18: Urine Color Yellow, Urine Appearance Clear, Urine pH 6.0, Ur Specific [place] 1.015, Urine Protein Negative, Urine Glucose (UA) Negative, Urine Ketones Negative, Urine Blood Negative, Urine Nitrate Negative, Urine Bilirubin Negative, Urine Urobilinogen 0.2, Ur Leukocyte Esterase Negative Result diagrams: 10/02/20 15:55 10/02/20 15:55 Orders (Tests/Me
--- NOTE | 2020-10-02 16:08 | PC.NURSE ---
Vascular here for doppler studies
[2020-10-02 16:14] LABS: Adenovirus,PCR Not Detected (NotDetected); Bordetella Pertussis Not Detected (NotDetected); Chlamydophila Pneumoniae, PCR Not Detected (NotDetected); Coronavirus 19, PCR Not Detected (NotDetected); Coronavirus 229E Not Detected (NotDetected); Coronavirus NL63 Not Detected (NotDetected); Coronavirus OC43 Not Detected (NotDetected); Coronovirus HKU1,PCR Not Detected (NotDetected); Human Metapneumovirus Not Detected (NotDetected); Influenza A, PCR Not Detected (NotDetected); Influenza AH1, 2009 Not Detected (NotDetected); Influenza AH1, PCR Not Detected (NotDetected); Influenza AH3,PCR Not Detected (NotDetected); Influenza B, PCR Not Detected (NotDetected); Mycoplasma Pneumoniae, PCR Not Detected (NotDetected); Parainfluenza 1, PCR Not Detected (NotDetected); Parainfluenza 2, PCR Not Detected (NotDetected); Parainfluenza 3, PCR Not Detected (NotDetected); Parainfluenza 4, PCR Not Detected (NotDetected); Respiratory Syncytial Virus Not Detected (NotDetected); Rhinovirus/Enterovirus Not Detected (NotDetected)
[2020-10-02 16:22] LABS: Basophils % 0.1 % (0.1-2.0); Eosinophils # 0.1 K/mm3 (0.0-0.4); Lymphocytes # 0.7 K/mm3 (0.7-4.5); Mean Corpuscular HGB Conc 28.6 g/dL (31.8-35.4); Mean Corpuscular Hemoglobin 22.3 pg (27.0-31.2); Mean Corpuscular Volume 78.1 fl (80-94); Mean Platelet Volume 7.9 fl (7.4-10.4); Monocytes # 0.3 K/mm3 (0.1-1.0); Monocytes % 4.5 % (1.7-9.3); Neutrophils # 6.4 K/mm3 (1.8-7.8); Neutrophils % 85.4 % (37.0-80.0); Platelet Count 429 K/mm3 (142-424); Red Blood Count 2.77 M/mm3 (4.60-6.20); White Blood Count 7.5 K/mm3 (4.8-10.8)
[2020-10-02 16:24] LABS: Hematocrit 21.7 % (42.0-52.0); Hemoglobin 6.2 g/dL (14.1-18.0)
[2020-10-02 16:25] LABS: Chloride 104 mmol/L (98-107); Potassium 4.8 mmoL/L (3.5-5.1); Sodium 138 mmol/L (136-145)
[2020-10-02 16:26] LABS: MANUAL DIFFERENTIAL MANUAL DIFFERENTIAL (MANUAL DIFF)
[2020-10-02 16:27] LABS: Alanine Aminotransferase 16 U/L (12-78); Aspartate Amino Transferase 20 U/L (17-59); Blood Urea Nitrogen 59 mg/dl (9-20); Creatinine Clearance Estimated 26 mL/min (50-200); Estimated Glomerular Filt Rate 28 ml/min (>60); GFR (African American) 33 ML/MIN (>60)
[2020-10-02 16:28] LABS: Albumin Level 3.5 g/dl (3.5-5.0); Albumin/Globulin Ratio 1.1 (1.1-1.8); Alkaline Phosphatase 82 U/L (38-126); Anion Gap 10.8 mEq/L (5-15); Bilirubin,Total 0.5 mg/dl (0.2-1.3); Calcium 8.9 mg/dl (8.4-10.2); Carbon Dioxide 28 mmol/L (22.0-30.0); Globulin 3.1 g/dL (1.3-3.2); Glucose 241 mg/dl (74-100); Lipase 66 U/L (23-300); Total Protein,Serum 6.6 g/dl (6.3-8.2)
[2020-10-02 16:28] LABS: Microscopic, Urine URINE MICROSCOPIC (MICROSCOPIC)
[2020-10-02 16:30] LABS: Lactic Acid 2.1 mmol/L (0.7-2.1)
[2020-10-02 16:35] LABS: Appearance,Urine CLEAR (Clear); Bilirubin,Urine Negative (Negative); Blood, Urine Negative (Negative); Color,Urine YELLOW (Yellow); Glucose,Urine (UA) Negative (Negative); Ketones,Urine Negative (Negative); Leukocyte Esterase,Urine Negative (Negative); Nitrate,Urine Negative (Negative); Protein,Urine Negative (Negative); Specific Gravity, Urine 1.015 (1.005-1.030); Urobilinogen,Urine 0.2 EU/dl (0.2)
[2020-10-02 16:36] LABS: Activated Partial Thrombo Time 25.8 seconds (22.8-30.6); Prothrombin Time 11.8 seconds (10.1-12.5)
[2020-10-02 16:38] LABS: NT Pro Brain Natriuretic Pep. 487 pg/mL (0-450)
[2020-10-02 16:42] LABS: Troponin I < 0.01 ng/ml (0.00-0.034)
[2020-10-02 16:59] LABS: Thyroid Stimulating Hormone 4.45 uIU/mL (0.465-4.68)
--- NOTE | 2020-10-02 17:10 | PC.NURSE ---
shadow graph weight operator paging dr. tovar who is carbonator for dr. cobos
--- NOTE | 2020-10-02 17:19 | PC.NURSE ---
welder machine operator paging automobile brake bonder pharmacist for vancomycin
--- NOTE | 2020-10-02 17:21 | PC.NURSE ---
spoke with Blaise the inspector structural bonding pharmacist for vancomycin consult. Blaise states Vancomycin 2 gram IV x1 dose states pharmacy will need to address further dosing for vancomycin for pt.
[2020-10-02 17:22] LABS: Acetone, Serum (Rapid) None Detected (None Detect)
--- NOTE | 2020-10-02 17:36 | PC.NURSE ---
notified warehouse lead of admission
[2020-10-02 17:37] LABS: Lymphocytes % 6 % (10-50); Monocytes % 4 % (2-9); Neutrophils % 90 % (42-76); Platelet Estimate Normal; RBC Morphology Normal; Total Cells Counted 100
--- NOTE | 2020-10-02 18:01 | PC.NURSE ---
reconciled pt medications based off of the medications he knew for sure, states he will have his call later when she goes home with a list of his medications.
[2020-10-02 18:08] LABS: Bacteria,Urine 1+ /lpf; RBC,Urine Occasional #/hpf (0-3)
--- NOTE | 2020-10-02 19:43 | PC.NURSE ---
Called floor to give report
[2020-10-02 20:12] LABS: Reflex Lactic Add Lactic Reflex
[2020-10-02 21:34] LABS: Lactic Acid Follow Up (RFLX 1) 3.4 mmol/L (0.7-2.1)
[2020-10-02 23:04] LABS: Reflex Lactic (2 hrs) Add Lactic Reflex
[2020-10-03] VITALS (38 sets, daily range): BP systolic 91–140; BP diastolic 44–88; PULSE 72–135; RESP 20–22; TEMP 36.6–36.9; O2SAT 94–99
[2020-10-03 00:10] LABS: Lactic Acid Follow up (RFLX 2) 1.7 mmol/L (0.7-2.1)
[2020-10-03 01:29] LABS: POC Glucose,Bedside 264 (70-110)
--- NOTE | 2020-10-03 05:49 | PC.WOUNDNOTE ---
Wound Location: LLE redness, swelling, crusty, weeping Inflammation/swelling Y/N: y Exudate: Seropurulent Color: Clear x Cloudy/milky x Consistency: Thin Amount: Moderate Odor Y/N: y
[2020-10-03 05:50] LABS: POC Glucose,Bedside 232 (70-110)
--- NOTE | 2020-10-03 05:52 | PC.WOUNDNOTE ---
Wound Location: RLE redness, swelling, weeping Inflammation/swelling Y/N: y Exudate: Seropurulent Color: Clear Cloudy/milky Consistency: Thin Amount: Moderate Odor Y/N: y
--- NOTE | 2020-10-03 06:14 | PC.NURSE ---
med rec completed off what pt was able to verbalized. stated that would call with meds and have received no call at this time. 2 units of PRBC infused with no issues at this time. edema to BLE with redness and weeping. pt has been up to chair since arrival to floor so weight has not been obtained. 2LNC in use. o2 sat are above 95% but currently still feels short of breath. iv is infusing but is positional. several attempts to obtain new iv site with no success. call light in reach. vss. will continue to monitor
--- NOTE | 2020-10-03 07:16 | P.CONPHA_ITS ---
[facility] Pharmacy VTE Monitoring - Patient Demographics Admission date: 10/02/20 Report Date: 10/03/20 Time: 07:17 Allergies/Adverse Reactions: Patient Allergies morphine Allergy (Severe, Verified 10/03/20 06:11) Swelling of Lip/Tongue/Throat Height: 1.73 m Weight: 136.078 kg Patient Problems: Current Active Problems Atrial fibrillation (Acute) Cellulitis of both lower extremities (Acute) Acute on chronic congestive heart failure with left ventricular diastolic dysfunction (Acute) Lymphedema in adult patient (Acute) Anemia (Acute) Acute on chronic renal failure (Acute) Diabetes mellitus (Chronic) - VTE Risk Labs: VTE Related Lab Results Hgb 6.2 g/dL (14.1-18.0) L* 10/02/20 15:55 Hct 21.7 % (42.0-52.0) L* 10/02/20 15:55 Plt Count 429 K/mm3 (142-424) H 10/02/20 15:55 PT 11.8 seconds (10.1-12.5) 10/02/20 15:55 INR 1.00 (0.9-1.1) 10/02/20 15:55 APTT 25.8 seconds (22.8-30.6) 10/02/20 15:55 BUN 59 mg/dl (9-20) H 10/02/20 15:55 Creatinine 2.30 mg/dl (0.66-1.25) H 10/02/20 15:55 Estimated Creat Clear 26 mL/min (50-200) 10/02/20 15:55 Was VTE Risk Assessment Performed: Yes VTE Score: 4 VTE Risk Level: Low Risk - Prophylaxis VTE Prophylaxis Ordered?: Yes Types of VTE Prophylaxis: TEDS Knee High, Pharmacological Location of Applied Device: Bilateral Lower Extremeties Pharmacologic Type: Enoxaparin
--- NOTE | 2020-10-03 07:30 | HMH.HP ---
*Admission Date: 10/02/20 *Chief complaint: shortness of breath, weakness *History of present illness: Mr. Ellsworth is a 80-year-old male complex past medical history of CHF, CKD, chronic lymphedema and stasis dermatitis. Has been receiving home health for leg wraps when his home health nurse last week noted that he was more short of breath and fatigue. He had recently been started on Xarelto by cardiology. Taken it for a few days. Noticed some scant blood in his stool and stopped the Xarelto promptly. Work-up consistent with acute on chronic anemia, slight worsening of CKD. Admitted for medical management of anemia, transfused overnight. On interview this morning, patient has no significant complaints. Feeling better with his shortness of breath. Received empiric antibiotics because of his cellulitis and lymphedema. Denies chest pain, nausea or vomiting. Tolerating baseline oxygen requirement. Blood pressure improved this morning. Making good urine. Sitting in bedside chair on interview and exam. [facility] History I have reviewed the patient's past medical history: Yes Medical History: Reports:: Asthma, Atrial Fibrillation, Cardiomyopathy, Congestive Heart Failure, Congenital Heart Disease, Coronary Artery Disease, Diabetes Mellitus Type 2, Gastroesophageal Reflux Disease(GERD), Hyperlipidemia, Hypertension, Internal Pacemaker, Lung Disease, Myocardial Infarction, Palpitations, Renal Disease, Renal Insufficiency, Seizures Denies:: Cancer, Diabetes Mellitus Type 1, MRSA *Have you ever received a pneumonia vaccine?: Yes *Have you received a flu vaccine this season?: No Other Medical History: Reports: Anemia, Arthritis, Hypothyroidism, Other. Denies: Blood Transfusion Reaction Laterality Cases: Right: Total Hip Replacement Other Surgeries: Yes: Appendectomy, Cardiac Catheterization, Colonoscopy, Coronary Stent, EGD, Pacemaker, Other Amputation: No Fractures: No - *Social History Smoking Status: Never smoker Tobacco Type: cigarettes Alcohol Intake: never Alcohol Intake Frequency:: other Substance Use Type: denies use *Occupational Status:: retired Housing: house Household Members: spouse *Travel in the last 8 weeks: None Family Hx:: Diabetes Review of Systems - Review of Systems Review of systems:: pertinent systems reviewed and negative unless documented below - *Neurologic Reports weakness, Denies headache(s) Meds Home Medications Medication Instructions Recorded Confirmed Type methocarbamoL [Methocarbamol 500mg 500 mg PO BID 07/17/17 09/26/20 History Tablet] Albuterol Sulfate [Albuterol 2.5 mg IH QID 10/05/17 09/26/20 History Sulfate 2.5mg/0.5ml Neb] insulin human U-100 NPH-regulr 40 unit SQ TID ml 05/11/18 10/03/20 History 70-30 mix 100 unit/mL subcutaneous susp furosemide 80 mg tablet 80 mg PO DAILY tab 07/14/18 09/26/20 History Ferrous Sulfate [Iron] 325 mg PO BID 03/23/19 10/03/20 History Ipratropium [place] [Atrovent 0.5 mg IH QID 03/24/19 09/26/20 History 0.5mg/2.5mL neb] Spironolactone [Spironolactone 25 mg PO BID 07/09/19 09/26/20 History 25mg Tablet] cholecalciferol (vitamin D3) 1,250 1,250 mcg PO QWEEK cap 09/28/19 09/26/20 History mcg (50,000 unit) capsule potassium chloride 20 mEq 20 meq PO DAILY tab 09/28/19 09/26/20 History tablet,extended release Albuterol Sulfate [Ventolin HFA 1 - 2 puffs IH Q4-6H PRN 10/19/19 10/02/20 History Inhaler] Atorvastatin Calcium [Lipitor 40mg 40 mg PO HS 10/19/19 10/03/20 History Tab] Fluticasone/Vilanterol [Breo 1 inh IH DAILY 10/19/19 09/26/20 History Ellipta 100-25 Mcg INH] Loratadine [Allergy] 10 mg PO DAILY 10/19/19 09/26/20 History Montelukast Sodium [Singulair 10mg 10 mg PO PM 10/19/19 09/26/20 History tablet] Oxycodone HCl 30 mg PO Q6HP PRN 10/20/19 10/02/20 History Gabapentin 800 mg PO HS #0 tab 10/26/19 09/26/20 Rx Tamsulosin HCl [Flomax 0.4mg 0.4 mg PO HS 11/19/19 09/26/20 History capsule]
[2020-10-03 08:16] LABS: Chloride 105 mmol/L (98-107)
[2020-10-03 08:17] LABS: Potassium 4.7 mmoL/L (3.5-5.1); Sodium 138 mmol/L (136-145)
[2020-10-03 08:19] LABS: Alanine Aminotransferase 14 U/L (12-78); Alkaline Phosphatase 75 U/L (38-126); Aspartate Amino Transferase 18 U/L (17-59); Bilirubin,Total 0.6 mg/dl (0.2-1.3); Blood Urea Nitrogen 57 mg/dl (9-20); Creatinine Clearance Estimated 23 mL/min (50-200); Estimated Glomerular Filt Rate 24 ml/min (>60); GFR (African American) 29 ML/MIN (>60)
[2020-10-03 08:20] LABS: Albumin Level 3.4 g/dl (3.5-5.0); Albumin/Globulin Ratio 1.1 (1.1-1.8); Anion Gap 8.7 mEq/L (5-15); Basophils % 0.2 % (0.1-2.0); Calcium 8.7 mg/dl (8.4-10.2); Carbon Dioxide 29 mmol/L (22.0-30.0); Eosinophils # 0.1 K/mm3 (0.0-0.4); Eosinophils % 1.8 % (0.1-12.0); Globulin 3.1 g/dL (1.3-3.2); Glucose 234 mg/dl (74-100); Hematocrit 25.3 % (42.0-52.0); Lymphocytes # 0.8 K/mm3 (0.7-4.5); Lymphocytes % 10.1 % (10-50); Mean Corpuscular HGB Conc 29.5 g/dL (31.8-35.4); Mean Corpuscular Hemoglobin 23.6 pg (27.0-31.2); Mean Corpuscular Volume 80.1 fl (80-94); Mean Platelet Volume 8.8 fl (7.4-10.4); Monocytes # 0.5 K/mm3 (0.1-1.0); Monocytes % 5.8 % (1.7-9.3); Neutrophils # 6.5 K/mm3 (1.8-7.8); Neutrophils % 82.1 % (37.0-80.0); Platelet Count 357 K/mm3 (142-424); Red Blood Count 3.16 M/mm3 (4.60-6.20); Red Cell Distribution Width 16.7 % (11.5-17.5); Total Protein,Serum 6.5 g/dl (6.3-8.2)
[2020-10-03 08:26] LABS: Hemoglobin 7.5 g/dL (14.1-18.0)
--- NOTE | 2020-10-03 08:36 | PC.NURSE ---
DR BUTLER AWARE OF H/H LEVELS THIS AM.
--- NOTE | 2020-10-03 09:45 | HMH.PHACONS ---
- Pharmacy Consult Date: 10/03/20 Time: 09:46 Referring provider: DR. BUTLER Reason for Consult:: VANCOMYCIN DOSING Allergies and ADEs:: Allergies Allergy/AdvReac Type Severity Reaction Status Date / Time morphine Allergy Severe Swelling Verified 10/03/20 06:11 of Lip/Tongue/Throat Home Medications:: Home Medications Medication Instructions Recorded Confirmed Type methocarbamoL [Methocarbamol 500mg 500 mg PO BID 07/17/17 09/26/20 History Tablet] Albuterol Sulfate [Albuterol 2.5 mg IH QID 10/05/17 09/26/20 History Sulfate 2.5mg/0.5ml Neb] insulin human U-100 NPH-regulr 40 unit SQ TID ml 05/11/18 10/03/20 History 70-30 mix 100 unit/mL subcutaneous susp furosemide 80 mg tablet 80 mg PO DAILY tab 07/14/18 09/26/20 History Ferrous Sulfate [Iron] 325 mg PO BID 03/23/19 10/03/20 History Ipratropium [place] [Atrovent 0.5 mg IH QID 03/24/19 09/26/20 History 0.5mg/2.5mL neb] Spironolactone [Spironolactone 25 mg PO BID 07/09/19 09/26/20 History 25mg Tablet] cholecalciferol (vitamin D3) 1,250 1,250 mcg PO QWEEK cap 09/28/19 09/26/20 History mcg (50,000 unit) capsule potassium chloride 20 mEq 20 meq PO DAILY tab 09/28/19 09/26/20 History tablet,extended release Albuterol Sulfate [Ventolin HFA 1 - 2 puffs IH Q4-6H PRN 10/19/19 10/02/20 History Inhaler] Atorvastatin Calcium [Lipitor 40mg 40 mg PO HS 10/19/19 10/03/20 History Tab] Fluticasone/Vilanterol [Breo 1 inh IH DAILY 10/19/19 09/26/20 History Ellipta 100-25 Mcg INH] Loratadine [Allergy] 10 mg PO DAILY 10/19/19 09/26/20 History Montelukast Sodium [Singulair 10mg 10 mg PO PM 10/19/19 09/26/20 History tablet] Oxycodone HCl 30 mg PO Q6HP PRN 10/20/19 10/02/20 History Gabapentin 800 mg PO HS #0 tab 10/26/19 09/26/20 Rx Tamsulosin HCl [Flomax 0.4mg 0.4 mg PO HS 11/19/19 09/26/20 History capsule] bisoprolol fumarate 5 mg tablet 5 mg PO DAILY #30 tab 09/26/20 09/26/20 Rx isosorbide mononitrate 30 mg 30 mg PO DAILY #30 tab 09/26/20 09/26/20 Rx tablet,extended release 24 hr lisinopril 20 mg tablet 20 mg PO DAILY #30 tab 09/26/20 09/26/20 Rx allopurinoL [Allopurinol 300mg 300 mg PO DAILY 10/03/20 10/03/20 History tablet] Height: 1.73 m Weight: 136.078 kg Laboratory Results:: Laboratory Results - last 24 hr 10/02/20 15:55: WBC 7.5, RBC 2.77 L, Hgb 6.2 L*, Hct 21.7 L*, MCV 78.1 L, MCH 22.3 L, MCHC 28.6 L, RDW 16.0, Plt Count 429 H, MPV 7.9, Neut % (Auto) 85.4 H, Lymph % (Auto) 9.0 L, [place] % (Auto) 4.5, Eos % (Auto) 1.0, Baso % (Auto) 0.1, Neut # (Auto) 6.4, Lymph # (Auto) 0.7, [place] # (Auto) 0.3, Eos # (Auto) 0.1, Baso # (Auto) 0.0, Total Counted 100, Neutrophils % (Manual) 90 H, Lymphocytes % (Manual) 6 L, Monocytes % (Manual) 4, Platelet Estimate Normal, RBC Morphology Normal 10/02/20 15:55: PT 11.8, INR 1.00, APTT 25.8 10/02/20 15:55: Sodium 138, Potassium 4.8, Chloride 104, Carbon Dioxide 28, Anion Gap 10.8, BUN 59 H, Creatinine 2.30 H, Estimated Creat Clear 26, Estimated GFR 28 L, Est GFR ( Amer) 33 L, Glucose 241 H, Calcium 8.9, Total Bilirubin 0.5, AST 20, ALT 16, Alkaline Phosphatase 82, Troponin I < 0.01, NT-Pro-B Natriuret Pep 487 H, Total Protein 6.6, Albumin 3.5, Globulin 3.1, Albumin/Globulin Ratio 1.1, Lipase 66, TSH 4.45, Acetone Level None detected 10/02/20 15:55: Lactate 2.1 10/02/20 15:55: Blood Type A Positive, Antibody Screen Negative, Crossmatch (AHG) See Detail 10/02/20 16:04: Chlamy pneumoniae PCR Not detected, Adenovirus (PCR) Not detected, B. pertussis DNA (PCR) Not detected, Coronavirus OC43 (PCR) Not detected, Coronavirus HKU1 (PCR) Not detected, Coronavirus 229E (PCR) Not detected, SARS-CoV-2 (PCR) Not detected, Coronavirus NL63 (PCR) Not detected, Human Metapneumovir PCR Not detected, Influenza A (H1) PCR Not detected, Influ A (H1N1/09) PCR Not detected, Influenza A (H3) PCR Not detected, Influenza Type A (PCR) Not detected, Influenza Type B (PCR) Not detected, Isis swain
--- NOTE | 2020-10-03 10:15 | HMH.OTEV ---
OT Inpatient Evaluation Rehab OT IP Evaluation Start: 10/03/20 10:11 Freq: ONCE Status: Complete Protocol: Document 10/03/20 10:11 [facility] (Rec: 10/03/20 10:15 [facility] [id number]) Rehab OT IP Assessment Subjective History Pt oriented x 3 on arrival. Pt agreeable to engagein therapy evaluation. Pt was admitted via ED on 10/02/20 due to SOA, unable to ambulate, weakness/fatigue, and bilateral LE wounds for ~6 days. Pt has a past medical history of anemia, diabetes, CHF, CKD, and lymphedema. Pt reports prior to being in the hospital he lived at home with his . Pt claims he was independent with ADLS. He was dependent upon for IADLS . He did not use a walker or can during ambulation. Subjective I can do what I need to at home. Objective Patient Orientation Person,Place,Birthday Upper Extremity Gross ROM WFL Transfer Training Sit/Stand Transfer Assist Level Supervision/Stand by Chair Transfer Ability Supervision/Stand by Chair Transfer Technique Sit to/from Ambulatory Chair Transfer Assistive Devices None Performing Toilet Hygiene Ability Standby Assistance Overall Commode/Toilet Transfer Ability Standby Assistance Commode/Toilet Transfer Technique Sit to/from Ambulatory Rehab OT IP prob,goals,plan Problems Date of Evaluation: 10/03/20 Rehab Potential Rehab Potential Innapropriate for Skilled Therapy Discharge Plan OT Discharge Plan Pt appears to be at baseline functionally. Pt is safe to return home once medically stable. Pt would benefit from continued home health for bilateral leg wounds. Eval Complexity Eval Charge Codes 50346 - Moderate Complexity G Codes G -code Required No PHYSICIAN CERTIFICATION: I certify the specified therapy services for Johnathon Ellsworth are required, authorized, and reviewed every 30 days.
--- NOTE | 2020-10-03 11:29 | HMH.PTWOUND ---
Rehab Inpt Wound Evaluation Rehab IP Wound Evaluation Start: 10/03/20 08:44 Freq: ONCE Status: Active Protocol: Document 10/03/20 11:25 PHORJAIR (Rec: 10/03/20 11:28 PHORNE [id number]) Rehab PT Wound Assessment Subjective Subjective 80 yowm adm to [facility] with anemia requiring transfusion with hx of LE lymphedema and cellulitis. Complicated by CKD and CHF. Wound Right Lower Lateral [place] Wound Type Stasis Ulcer Is This a Chronic Wound Yes Wound Length (cm) 6.0 Wound Width (cm) 10.0 Wound Bed Appearance [place],Yellow Percentage Granulated (%) 90 Wound Margins Description Macerated Surrounding Tissue Appearance [place] Edema Type Pitting Edema Degree 3+ Query Text:1+ Trace, Barely Detectable, Rebound 15-30 seconds 2+ Moderate, Slight Indentation, Rebound 10-20 seconds 3+ Deep, Deeper Indentation, Rebound > 30 seconds 4+ Very Deep, Rebound > 60 seconds Edema Appearance Weeping,Hard,Open Sores Wound Drainage Description Serous Drainage Amount Large Drainage Odor No Odor Wound Topical Solution/Irrigant Saline Irrigant Primary Dressing Unna Boot Comment betadine Wound Secondary Dressing Type Gauze Roll/Wrap,Adhering Gauze Roll Wound Debridement Method Gauze Wound Debridement Amount of Tissue Minimal Removed Dressing Change Patient Tolerance Tolerated Well Plan/Recommendation Comment Will continue to follow and treat as needed, Unna boot may be left in place for 3-4 days depending on drainage amounts . Eval Complexity Eval Charge Codes 90747 - Moderate Complexity PHYSICIAN CERTIFICATION: I certify the specified therapy services for Johnathon Ellsworth are required, authorized, and reviewed every 30 days.
--- NOTE | 2020-10-03 11:31 | HMH.PHAINT ---
MEDICATION RECONCILIATION COMPLETED USING EXTERNAL FILL HISTORY, PHYSICIAN OFFICE LIST, AND PATIENT INTERVIEW
[2020-10-03 15:58] LABS: POC Glucose,Bedside 328 (70-110)
--- NOTE | 2020-10-03 16:42 | ECG_ITS ---
APPROVED REPORT Exam: Resting ECG HR:133 bpm ECG Measurements Heart Rate 133 AXES QRSd 96 QRS 1 QT 322 T 202 QTc 479 Conclusion Demand pacemaker, interpretation is based on intrinsic rhythm Atrial fibrillation with rapid ventricular response with premature ventricular or aberrantly conducted complexes Low voltage QRS Cannot rule out Anterior infarct, age undetermined Abnormal ECG Electronically signed by : Rodrigo Cook, 10/04/2020 13:15:56
--- NOTE | 2020-10-03 16:59 | PC.NURSE ---
CONTACTED DR BUTLER REGARDING PT IRREGULAR HR. EKG ORDERED. RESULTS SENT TO DR BUTLER AT 1547 AWAITING CALL BACK
[2020-10-03 17:15] LABS: Hematocrit 31.4 % (42.0-52.0)
[2020-10-03 18:00] LABS: Hemoglobin 9.5 g/dL (14.1-18.0)
[2020-10-03 18:24] LABS: Basophils % 0.3 % (0.1-2.0); Eosinophils # 0.2 K/mm3 (0.0-0.4); Eosinophils % 1.8 % (0.1-12.0); Hematocrit 31.3 % (42.0-52.0); Hemoglobin 9.4 g/dL (14.1-18.0); Lymphocytes # 0.8 K/mm3 (0.7-4.5); Lymphocytes % 8.5 % (10-50); Mean Corpuscular HGB Conc 30.2 g/dL (31.8-35.4); Mean Corpuscular Hemoglobin 24.5 pg (27.0-31.2); Mean Corpuscular Volume 81.2 fl (80-94); Mean Platelet Volume 8.3 fl (7.4-10.4); Monocytes # 0.5 K/mm3 (0.1-1.0); Monocytes % 5.2 % (1.7-9.3); Neutrophils % 84.3 % (37.0-80.0); Platelet Count 372 K/mm3 (142-424); Red Blood Count 3.85 M/mm3 (4.60-6.20); Red Cell Distribution Width 16.8 % (11.5-17.5); White Blood Count 9.5 K/mm3 (4.8-10.8)
[2020-10-03 18:33] LABS: Chloride 101 mmol/L (98-107); Potassium 4.4 mmoL/L (3.5-5.1); Sodium 137 mmol/L (136-145)
[2020-10-03 18:36] LABS: Anion Gap 11.4 mEq/L (5-15); Blood Urea Nitrogen 55 mg/dl (9-20); Carbon Dioxide 29 mmol/L (22.0-30.0); Creatinine Clearance Estimated 23 mL/min (50-200); Estimated Glomerular Filt Rate 24 ml/min (>60); GFR (African American) 29 ML/MIN (>60)
[2020-10-03 18:37] LABS: Calcium 8.4 mg/dl (8.4-10.2); Glucose 274 mg/dl (74-100)
[2020-10-03 18:47] LABS: C-Reactive Protein 92.5 mg/L (0-4)
--- NOTE | 2020-10-03 18:53 | PC.NURSE ---
[address] BUTLER. 5MG IV METOPROLOL ORDERED AND ADMIN PER MD ORDERS. 25 MG PO METOPROLOL ORDERED AND GIVEN PER MD ORDERS. PT HR DECREASED INTO 90'S BUT THEN REBOUNDED INTO 120'S. INFORMED DR BUTLER OF PT HR AND PRESENTATION. PT DOES NOT APPEAR SYMPTOMATIC, DENIES CHEST PAIN AND SOA. INFORMED DR BUTLER OF INITIAL STRIP WHICH READ AFIB WITH RVR AND PVCS. NO NEW ORDERS RECEIVED
[2020-10-03 21:53] LABS: POC Glucose,Bedside 307 (70-110)
[2020-10-04] VITALS: BP 100/76; PULSE 92; RESP 19; TEMP 36.8; O2SAT 94
[2020-10-04 04:00] VITALS: BP 121/61; PULSE 91; RESP 16; TEMP 36.8; O2SAT 96
[2020-10-04 05:52] LABS: POC Glucose,Bedside 191 (70-110)
[2020-10-04 07:49] LABS: Basophils % 0.3 % (0.1-2.0); Eosinophils # 0.3 K/mm3 (0.0-0.4); Eosinophils % 2.8 % (0.1-12.0); Hematocrit 30.4 % (42.0-52.0); Lymphocytes # 0.9 K/mm3 (0.7-4.5); Lymphocytes % 9.5 % (10-50); Mean Corpuscular HGB Conc 29.5 g/dL (31.8-35.4); Mean Corpuscular Volume 81.4 fl (80-94); Mean Platelet Volume 8.5 fl (7.4-10.4); Monocytes # 0.6 K/mm3 (0.1-1.0); Neutrophils # 7.9 K/mm3 (1.8-7.8); Neutrophils % 81.6 % (37.0-80.0); Platelet Count 394 K/mm3 (142-424); Red Blood Count 3.73 M/mm3 (4.60-6.20); Red Cell Distribution Width 16.9 % (11.5-17.5); White Blood Count 9.7 K/mm3 (4.8-10.8)
[2020-10-04 07:58] LABS: Chloride 104 mmol/L (98-107)
[2020-10-04 07:59] LABS: Potassium 4.3 mmoL/L (3.5-5.1); Sodium 139 mmol/L (136-145)
[2020-10-04 08:00] VITALS: BP 93/51; PULSE 89; RESP 20; TEMP 36.3; O2SAT 91
[2020-10-04 08:01] LABS: Alanine Aminotransferase 14 U/L (12-78); Aspartate Amino Transferase 21 U/L (17-59); Blood Urea Nitrogen 52 mg/dl (9-20); Creatinine Clearance Estimated 25 mL/min (50-200); Estimated Glomerular Filt Rate 26 ml/min (>60); GFR (African American) 32 ML/MIN (>60)
[2020-10-04 08:02] LABS: Albumin Level 3.4 g/dl (3.5-5.0); Albumin/Globulin Ratio 1.1 (1.1-1.8); Alkaline Phosphatase 73 U/L (38-126); Anion Gap 10.3 mEq/L (5-15); Bilirubin,Total 0.7 mg/dl (0.2-1.3); Calcium 8.5 mg/dl (8.4-10.2); Carbon Dioxide 29 mmol/L (22.0-30.0); Globulin 3.1 g/dL (1.3-3.2); Glucose 186 mg/dl (74-100); Magnesium 2.3 mg/dl (1.6-2.3); Total Protein,Serum 6.5 g/dl (6.3-8.2)
--- NOTE | 2020-10-04 08:24 | HMH.DCSUM ---
General - General Admission date:: 10/02/20 Discharge date: 10/04/20 HPI HPI: Mr. Ellsworth is a 80-year-old male complex past medical history of CHF, CKD, chronic lymphedema and stasis dermatitis. Has been receiving home health for leg wraps when his home health nurse last week noted that he was more short of breath and fatigue. He had recently been started on Xarelto by cardiology. Taken it for a few days. Noticed some scant blood in his stool and stopped the Xarelto promptly. Work-up consistent with acute on chronic anemia, slight worsening of CKD. Admitted for medical management of anemia, transfused overnight. On interview this morning, patient has no significant complaints. Feeling better with his shortness of breath. Received empiric antibiotics because of his cellulitis and lymphedema. Denies chest pain, nausea or vomiting. Tolerating baseline oxygen requirement. Blood pressure improved this morning. Making good urine. Sitting in bedside chair on interview and exam. Hospital Course Hospital Course: Patient was admitted, received transfusions as noted, obviously Xarelto was discontinued. His legs were weeping and red, blood cultures were obtained, patient did not meet criteria for sepsis, was given cefepime for the cellulitis and physical therapy evaluated him and placed Unna boots on the right leg. He felt much better from a leg perspective and the blood transfusions helped with his shortness of air and he had no further episodes of dark stool, and did well with eating. Did have one episode of higher heart rates with his A. fib as yesterday his bisoprolol dose was not restarted, he was given 1 dose of metoprolol yesterday afternoon and this helped the situation. This morning he feels better, up in a chair, wishes to go home, denies cardiovascular or GI symptoms. His blood counts have been stable overnight, no further evidence of bleeding, and he will be discharged home to follow-up with physical therapy on Friday for repeat wound wrapping and follow-up in our office on Friday for reevaluation of heart rate, and referral if needed for GI to establish source of bleeding. Of note patient's baseline creatinine is 2.0, bumped up to 2.3 while in the hospital but did not improve with blood transfusions or fluids but did not worsen. We will continue to observe as an outpatient. No changes in urine output from baseline through the hospital stay. Objective Vital signs: Temp Pulse Resp BP Pulse Ox 98.2 F 91 H 16 121/61 96 10/04/20 04:00 10/04/20 04:00 10/04/20 04:00 10/04/20 04:00 10/04/20 04:00 no acute distress, morbidly obese - *Routine HEENT Exam Head: Present: normocephalic Eye: Present: EOMI, PERRL ENT: Present: mucous membranes moist - *Routine Neck Exam Present: supple - *Routine Respiratory Exam Present: CTA bilaterally - *Routine Cardiovascular Exam Present: irregular rhythm, irregularly irregular - *Routine Abdominal Exam Present: soft, normoactive bowel sounds. Absent: tenderness - *Routine Extremities Exam Present: edema. Absent: cyanosis Comments: Baseline brawny skin changes below the left knee with lots of scaling and evidence of old cellulitis. Right leg is wrapped in an Unna boot up to the calf. - *Routine Skin Exam Present: warm. Absent: rash - Detailed Eye Exam Eyelids: Bilateral normal inspection Results Labs on day of discharge: Labs from last 24 hours 10/04/20 10/04/20 10/04/20 07:35 07:35 05:43 WBC 9.7 RBC 3.73 L Hgb 9.0 L Hct 30.4 L MCV 81.4 MCH 24.0 L MCHC 29.5 L RDW 16.9 Plt Count 394 MPV 8.5 Neut % (Auto) 81.6 H Lymph % (Auto) 9.5 L [place] % (Auto) 6.0 Eos % (Auto) 2.8 Baso % (Auto) 0.3 Neut # (Auto) 7.9 H Lymph # (Auto) 0.9 [place] # (Auto) 0.6 Eos # (Auto) 0.3 Baso # (Auto) 0.0 Sodium 139 Potassium 4.3 Chloride 104 Carbon Dioxide 29 Anion Gap 10.3
== END 2020-10-04 11:34 | disposition home health service (06) ==
LOC: ER 17:44 → 2ND 17:48
PROVIDERS: Admitting Provider Family Medicine; Emergency Provider Emergency Medicine; PCP Internal Medicine Adolescent Medicine; Visit Provider Internal Medicine Adolescent Medicine
DX: D62 Acute posthemorrhagic anemia (principal); D63.1 Anemia in chronic kidney disease; I13.0 Hypertensive heart and chronic kidney disease with heart failure and stage 1 through stage 4 chronic kidney disease, or unspecified chronic kidney disease; I50.33 Acute on chronic diastolic (congestive) heart failure; T45.515A Adverse effect of anticoagulants, initial encounter; N17.9 Acute kidney failure, unspecified; L03.116 Cellulitis of left lower limb; L03.115 Cellulitis of right lower limb; L97.929 Non-pressure chronic ulcer of unspecified part of left lower leg with unspecified severity; L97.919 Non-pressure chronic ulcer of unspecified part of right lower leg with unspecified severity; Z68.42 Body mass index [BMI] 45.0-49.9, adult; I48.20 Chronic atrial fibrillation, unspecified; I89.0 Lymphedema, not elsewhere classified; I87.2 Venous insufficiency (chronic) (peripheral); Z79.82 Long term (current) use of aspirin; Z79.4 Long term (current) use of insulin; Z88.5 Allergy status to narcotic agent; J45.909 Unspecified asthma, uncomplicated; I42.9 Cardiomyopathy, unspecified; I25.10 Atherosclerotic heart disease of native coronary artery without angina pectoris; E78.5 Hyperlipidemia, unspecified; Z95.5 Presence of coronary angioplasty implant and graft; Z95.0 Presence of cardiac pacemaker; I25.2 Old myocardial infarction; E03.9 Hypothyroidism, unspecified; Z96.641 Presence of right artificial hip joint; N18.32 Chronic kidney disease, stage 3b; Z87.891 Personal history of nicotine dependence; E66.01 Morbid (severe) obesity due to excess calories; E10.22 Type 1 diabetes mellitus with diabetic chronic kidney disease
CPT/HCPCS: 36415; 71045; 80048; 80053; 81001; 82009; 82962; 83605; 83690; 83735; 83880; 84443; 84484; 85007; 85014; 85018; 85025; 85610; 85730; 86140; 86850; 87040; 87581; 87633; 87798; 93005; 93970; 96365; 96367; 97166; 99284; G0378; J0692; J2543; J3370; P9016

== ENCOUNTER → 2020-10-06 13:07 | Outpatient (CLI) | payer MEDICARE, SELFPAY | PROVIDERS: PCP Internal Medicine Adolescent Medicine; Visit Provider Nurse Practitioner Family | DX: E13.69 Other specified diabetes mellitus with other specified complication (principal); E78.2 Mixed hyperlipidemia; I10 Essential (primary) hypertension; I11.0 Hypertensive heart disease with heart failure; I25.118 Atherosclerotic heart disease of native coronary artery with other forms of angina pectoris; I50.22 Chronic systolic (congestive) heart failure; I50.23 Acute on chronic systolic (congestive) heart failure; R06.02 Shortness of breath; Z95.5 Presence of coronary angioplasty implant and graft | CPT/HCPCS: 93306 ==

== ENCOUNTER 2020-10-06 13:57 | Emergency (ER) | payer MEDICARE, SELFPAY ==
[2020-10-06 13:58] VITALS: BP 115/79; PULSE 113; RESP 28; TEMP 37.2; O2SAT 95; BMI 45.6
--- NOTE | 2020-10-06 14:23 | HMH.EDSOB ---
ED Disposition Clinical Impression: CHF exacerbation Qualifiers: Heart failure type: systolic Qualified Code(s): I50.23 - Acute on chronic systolic (congestive) heart failure Disposition: Home, Self-Care Condition on Discharge: Good Instructions: Heart Failure Additional Instructions: Follow-up with Dr. Eaton tomorrow morning at 9 AM in his office and initiate the metoprolol tonight with the first dose. Return to the ED for any new or worsening symptoms. Prescriptions: Metoprolol Succinate [Metoprolol Succinate 25mg Tablet*] 25 mg PO BID 14 Days #28 tab Transmission Status: Pending to [facility] Referrals: Nicholas Eaton MD [Primary Care Provider] - Time of Disposition: 16:52 - Critical Care Critical Care Time: No Attestation: On 10/06/20, the high probability of a clinically significant, sudden or life threatening deterioration of the following system(s) required my full and direct attention, intervention and personal management. The time I documented below is in addition to time spent performing reported procedures but includes the following listed in this critical care notation. Medical Decision Making - Kehinde Inquiry Pt receiving controlled substance: No Vital Signs: 10/06/20 13:58 10/06/20 15:48 Temperature 99 F Temperature Source Oral Pulse Rate [Radial] 113 H Respiratory Rate 28 H Blood Pressure 112/60 Blood Pressure [Right Arm] 115/79 Blood Pressure Mean [Right Arm] 91 Blood Pressure Source Manual Cuff/ Auscultation Blood Pressure Position Sitting Blood Pressure Position [Right Arm] Sitting 02 Sat by Pulse Oximetry 95 Oxygen Delivery Method Nasal Cannula Oxygen Flow Rate (LPM) 2 - Lab Data Lab Results 10/06/20 14:46: WBC 11.0 H, RBC 3.75 L, Hgb 8.9 L, Hct 31.3 L, MCV 83.5, MCH 23.7 L, MCHC 28.3 L, RDW 16.4, Plt Count 364, MPV 7.8, Neut % (Auto) 82.5 H, Lymph % (Auto) 8.3 L, [place] % (Auto) 7.0, Eos % (Auto) 1.9, Baso % (Auto) 0.2, Neut # (Auto) 9.1 H, Lymph # (Auto) 0.9, [place] # (Auto) 0.8, Eos # (Auto) 0.2, Baso # (Auto) 0.0 10/06/20 14:46: Sodium 136, Potassium 4.9, Chloride 103, Carbon Dioxide 27, Anion Gap 10.9, BUN 65 H, Creatinine 2.50 H, Estimated Creat Clear 24, Estimated GFR 25 L, Est GFR ( Amer) 30 L, Glucose 182 H, Calcium 8.8, Total Bilirubin 0.5, AST 22, ALT 17, Alkaline Phosphatase 75, Troponin I < 0.01, Total Protein 6.9, Albumin 3.5, Globulin 3.4 H, Albumin/Globulin Ratio 1.0 L 10/06/20 14:46: NT-Pro-B Natriuret Pep 708 H Result diagrams: 10/06/20 14:46 10/06/20 14:46 Orders (Tests/Meds): ED MEDICATIONS Discontinued Medications Generic Name Dose Route Start Last Admin Trade Name Freq PRN Reason Stop Dose Admin Furosemide 40 mg 10/06/20 14:28 10/06/20 14:43 Furosemide 40mg/4ml Vial IV 10/06/20 14:29 40 mg ONCE ONE Administration ORDERS Category Date Time Status Troponin I Q3H Lab 10/06/20 17:30 Ordered Troponin I Q3H Lab 10/06/20 20:30 Ordered Medical Decision Narrative: 80-year-old male who presents from echo clinic for concerns of a pericardial effusion. Patient is well-appearing and nontoxic he is on his home oxygen requirement and states that he feels well despite a period of shortness of breath last night with poor sleep. He was discharged 3 days ago following CHF exacerbation. EKG today demonstrates atrial fibrillation with mild rapid ventricular response. Patient is not on a rate controlling medication at this time. Chest x-ray demonstrates no significant changes compared to previous. The ultrasound echo images were reviewed demonstrating no diastolic free wall collapse concerning for tamponade and a manual blood pressure in the department is stable. He is on his home 2 L of oxygen. He was given 40 mg of IV Lasix for diuresis. His BNP is 700 not significantly elevated for his level of disease and his renal function is actually improved compared to inpatient with no significant acute kidney injury today
--- NOTE | 2020-10-06 14:24 | XR_ITS ---
PROCEDURE: XR CHEST PORTABLE CLINICAL HISTORY: dyspnea Shortness of breath COMPARISON: CT CHESTWO CT chest wo con from 03/23/2018 CR SHOULDCMRT XR shoulder RT min 2V from 08/06/2018 CR XR CHEST PORTABLE from 10/18/2019 CR XR CHEST PORTABLE from 09/01/2020 CR XR CHEST PORTABLE from 10/02/2020 FINDINGS: There is mild cardiomegaly without failure. Bipolar pacemaker is present from left subclavian approach. Linear areas of increased density in the left lower lobe consistent with atelectatic change and or infiltrate. There is an area of sclerosis involving the base of the acromion on the right medially possibly due to a blastic metastatic focus. There is also some increased density in the mid to lateral aspect of the right clavicle but could be due to radiographic technique.. IMPRESSION: 1. Cardiomegaly with left lower lobe atelectasis and or infiltrate 2. Blastic lesion of the acromion on the right raising the suspicion of metastatic disease. Dictated by: Trace Nair MD 10/06/2020 15:44 Trace Nair MD in [place] 10/06/2020 15:44
--- NOTE | 2020-10-06 14:30 | PC.NURSE ---
Rad at bedside
[2020-10-06 14:53] LABS: Basophils % 0.2 % (0.1-2.0); Eosinophils # 0.2 K/mm3 (0.0-0.4); Eosinophils % 1.9 % (0.1-12.0); Hematocrit 31.3 % (42.0-52.0); Hemoglobin 8.9 g/dL (14.1-18.0); Lymphocytes # 0.9 K/mm3 (0.7-4.5); Lymphocytes % 8.3 % (10-50); Mean Corpuscular HGB Conc 28.3 g/dL (31.8-35.4); Mean Corpuscular Hemoglobin 23.7 pg (27.0-31.2); Mean Corpuscular Volume 83.5 fl (80-94); Mean Platelet Volume 7.8 fl (7.4-10.4); Monocytes # 0.8 K/mm3 (0.1-1.0); Neutrophils # 9.1 K/mm3 (1.8-7.8); Neutrophils % 82.5 % (37.0-80.0); Platelet Count 364 K/mm3 (142-424); Red Blood Count 3.75 M/mm3 (4.60-6.20); Red Cell Distribution Width 16.4 % (11.5-17.5)
[2020-10-06 14:56] LABS: Chloride 103 mmol/L (98-107); Potassium 4.9 mmoL/L (3.5-5.1); Sodium 136 mmol/L (136-145)
[2020-10-06 14:59] LABS: Alanine Aminotransferase 17 U/L (12-78); Albumin Level 3.5 g/dl (3.5-5.0); Alkaline Phosphatase 75 U/L (38-126); Anion Gap 10.9 mEq/L (5-15); Aspartate Amino Transferase 22 U/L (17-59); Bilirubin,Total 0.5 mg/dl (0.2-1.3); Blood Urea Nitrogen 65 mg/dl (9-20); Calcium 8.8 mg/dl (8.4-10.2); Carbon Dioxide 27 mmol/L (22.0-30.0); Creatinine Clearance Estimated 24 mL/min (50-200); Estimated Glomerular Filt Rate 25 ml/min (>60); GFR (African American) 30 ML/MIN (>60); Globulin 3.4 g/dL (1.3-3.2); Glucose 182 mg/dl (74-100); Total Protein,Serum 6.9 g/dl (6.3-8.2)
[2020-10-06 15:08] LABS: NT Pro Brain Natriuretic Pep. 708 pg/mL (0-450)
[2020-10-06 15:18] LABS: Troponin I < 0.01 ng/ml (0.00-0.034)
--- NOTE | 2020-10-06 15:30 | ECG_ITS ---
APPROVED REPORT Exam: Resting ECG HR:116 bpm ECG Measurements Heart Rate 116 AXES NH 176 P 50 QRSd 28 QRS 0 QT 302 T 51 QTc 419 Conclusion Sinus tachycardia with frequent and consecutive premature ventricular complexes and fusion complexes Right atrial enlargement Indeterminate axis Pulmonary disease pattern Acute pericarditis Abnormal ECG Electronically signed by : Rodrigo Cook, 10/07/2020 08:41:07
--- NOTE | 2020-10-06 15:42 | PC.NURSE ---
Pt keeps getting out of bed to sit in the chair and keeps removing his vs monitors.
[2020-10-06 15:48] VITALS: BP 112/60
--- NOTE | 2020-10-06 16:17 | PC.NURSE ---
Calling chronic care nurse for Dr Cook at this time.
--- NOTE | 2020-10-06 16:17 | PC.NURSE ---
Pt's family member keeps coming to desk questioning what is taking so long and why we don't know anything. Explained to pt that we are very busy and that the MD is paging his PCP to discuss his care.
[2020-10-06 16:56] VITALS: BP 112/64; PULSE 89; RESP 20; TEMP 37.2; O2SAT 94
== END 2020-10-06 17:02 | disposition home or self-care (01) ==
PROVIDERS: Emergency Provider Student in an Organized Health Care Education/Training Program; PCP Internal Medicine Adolescent Medicine
DX: I50.23 Acute on chronic systolic (congestive) heart failure (principal); I48.91 Unspecified atrial fibrillation; E03.9 Hypothyroidism, unspecified; I25.10 Atherosclerotic heart disease of native coronary artery without angina pectoris; E11.65 Type 2 diabetes mellitus with hyperglycemia; I25.2 Old myocardial infarction; K21.9 Gastro-esophageal reflux disease without esophagitis; E78.5 Hyperlipidemia, unspecified; I10 Essential (primary) hypertension; Z95.0 Presence of cardiac pacemaker; Z79.899 Other long term (current) drug therapy; Z99.81 Dependence on supplemental oxygen
CPT/HCPCS: 71045; 80053; 83880; 84484; 85025; 93005; 93306; 96374; 99282

== ENCOUNTER 2020-10-12 13:13 | Observation (INO) | payer MEDICARE, SELFPAY ==
[2020-10-12] VITALS (7 sets, daily range): BP systolic 96–143; BP diastolic 48–71; PULSE 62–143; RESP 18; TEMP 36.6–36.9; O2SAT 92–98; BMI 31.9; BMI 43.4
--- NOTE | 2020-10-12 13:24 | ECG_ITS ---
APPROVED REPORT Exam: Resting ECG HR:136 bpm ECG Measurements Heart Rate 136 AXES QRSd 80 QRS -4 QT 304 T 8 QTc 457 Conclusion Atrial fibrillation with rapid ventricular response with premature ventricular or aberrantly conducted complexes Low voltage QRS Septal infarct, age undetermined Abnormal ECG Electronically signed by : Rodrigo Cook, 10/15/2020 07:34:06
--- NOTE | 2020-10-12 13:34 | XR_ITS ---
PROCEDURE: XR CHEST PORTABLE CLINICAL HISTORY: soa Shortness of air COMPARISON: CT CHESTWO CT chest wo con from 03/23/2018 CR XR CHEST PORTABLE from 09/01/2020 CR XR CHEST PORTABLE from 10/02/2020 CR XR CHEST PORTABLE from 10/06/2020 FINDINGS: There is cardiomegaly with pulmonary venous congestion consistent with mild CHF. Bipolar pacemaker is present from left subclavian approach. There are increased markings in both lower lobes which may be related atelectasis and or infiltrate slightly worse compared to the previous exam. No acute bony abnormalities. IMPRESSION: CHF with bibasilar airspace disease slightly worse from the previous exam Dictated by: Trace Nair MD 10/12/2020 13:56 Trace Nair MD in [place] 10/12/2020 13:56
--- NOTE | 2020-10-12 13:40 | PC.NURSE ---
Called RT for BG
--- NOTE | 2020-10-12 14:00 | HMH.EDGENADL ---
ED Disposition Clinical Impression: Atrial fibrillation with RVR, CHF exacerbation Disposition: Admitted As Inpatient Condition on Discharge: Good Referrals: Nicholas Eaton MD [Primary Care Provider] - - Critical Care Critical Care Time: Yes Attestation: On 10/12/20, the high probability of a clinically significant, sudden or life threatening deterioration of the following system(s) required my full and direct attention, intervention and personal management. The time I documented below is in addition to time spent performing reported procedures but includes the following listed in this critical care notation. Total Critical Care Time: 40 Vital system(s) involved:: Respiratory Failure, Renal Failure My critical care processes included: Assessment & monitoring of V/S, Initial and Re-exams, Data Review/Interpretation, Coordinating Care, Medication Orders and management, Documentation Medical Decision Making - Medical Records Medical records reviewed: Yes: I reviewed the patient's medical records. - Kehinde Inquiry Pt receiving controlled substance: No Vital Signs: 10/12/20 13:14 10/12/20 14:14 10/12/20 14:15 Temperature 98.4 F Temperature Source Oral Pulse Rate 143 H 134 H Pulse Rate [Right] 138 H Respiratory Rate 18 18 Blood Pressure 118/48 L 118/48 L Blood Pressure [Right Arm] 136/71 Blood Pressure Mean [Right Arm] 92 Blood Pressure Source Automatic Cuff Blood Pressure Position Sitting 02 Sat by Pulse Oximetry 96 95 98 Oxygen Delivery Method Nasal Cannula Nasal Cannula Nasal Cannula Oxygen Flow Rate (LPM) 2 2 2 10/12/20 15:02 Temperature Temperature Source Pulse Rate 122 H Pulse Rate [Right] Respiratory Rate 18 Blood Pressure 143/70 H Blood Pressure [Right Arm] Blood Pressure Mean [Right Arm] Blood Pressure Source Blood Pressure Position 02 Sat by Pulse Oximetry 98 Oxygen Delivery Method Nasal Cannula Oxygen Flow Rate (LPM) 2 - Lab Data Lab Results 10/12/20 14:04: WBC 11.1 H, RBC 4.10 L, Hgb 9.6 L, Hct 32.5 L, MCV 79.2 L, MCH 23.4 L, MCHC 29.6 L, RDW 17.2, Plt Count 387, MPV 7.4, Neut % (Auto) 87.0 H, Lymph % (Auto) 6.7 L, [place] % (Auto) 4.9, Eos % (Auto) 1.3, Baso % (Auto) 0.2, Neut # (Auto) 9.7 H, Lymph # (Auto) 0.7, [place] # (Auto) 0.5, Eos # (Auto) 0.2, Baso # (Auto) 0.0, Total Counted 100, Neutrophils % (Manual) 83 H, Lymphocytes % (Manual) 9 L, Monocytes % (Manual) 7, Eosinophils % (Manual) 1, Platelet Estimate Normal, Hypochromasia 2+ 10/12/20 14:04: Sodium 138, Potassium 4.4, Chloride 98, Carbon Dioxide 33 H, Anion Gap 11.4, BUN 44 H, Creatinine 1.70 H, Estimated Creat Clear 48, Estimated GFR 39 L, Est GFR ( Amer) 47 L, Glucose 119 H, Calcium 9.4, Magnesium 2.0, NT-Pro-B Natriuret Pep 942 H 10/12/20 14:05: Specimen Source Right radial, O2 % 2l nc, ABG pH 7.46 H, ABG pCO2 42.3, ABG pO2 67.3 L, ABG HCO3 29.3 H, ABG Total CO2 30.6 H, ABG O2 Saturation 93, ABG Base Excess 5.4 H, Trace Test Acceptable Result diagrams: 10/12/20 14:04 10/12/20 14:04 Orders (Tests/Meds): ED MEDICATIONS Generic Name Dose Route Start Last Admin Trade Name Freq PRN Reason Stop Dose Admin Acetaminophen 650 mg 10/12/20 15:16 Acetaminophen 325mg Tab PO 11/11/20 15:15 Q4HP PRN As Needed for Fever or Pain Metoprolol Tartrate 25 mg 10/12/20 17:00 Metoprolol Tartrate 25mg Tablet PO 11/11/20 16:59 Q6 SHAE Discontinued Medications Generic Name Dose Route Start Last Admin Trade Name Freq PRN Reason Stop Dose Admin Digoxin 500 mcg 10/12/20 15:03 Digoxin 0.25mg Tablet PO 10/12/20 15:04 ONCE ONE Furosemide 40 mg 10/12/20 14:31 10/12/20 14:36 Furosemide 40mg/4ml Vial IV 10/12/20 14:32 40 mg ONCE ONE Administration Metoprolol Tartrate 2.5 mg 10/12/20 14:04 10/12/20 14:10 Metoprolol Tartrate 5mg/5ml Vial IV 10/12/20 14:05 2.5 mg ONCE ONE Administration Metoprolol Tartrate 2.5 mg 10/12/20 14:30 10/12/20 14:39 Metoprolol
[2020-10-12 14:09] LABS: ABG Base Excess 5.4 mmol/L (-2.4-2.3); ABG HCO3 29.3 mmhg (22.0-26.0); ABG Oxygen Saturation 93 % (90-100); ABG PCO2 42.3 mmhg (35.0-45.0); ABG PH 7.46 mmol/L (7.35-7.45); ABG PO2 67.3 mmhg (80-100); ABG TCO2 30.6 mmhg (23-27); Allen's Test Acceptable; Oxygen 2L NC %; Source Right Radial
[2020-10-12 14:14] LABS: Basophils % 0.2 % (0.1-2.0); Eosinophils # 0.2 K/mm3 (0.0-0.4); Eosinophils % 1.3 % (0.1-12.0); Hematocrit 32.5 % (42.0-52.0); Hemoglobin 9.6 g/dL (14.1-18.0); Lymphocytes # 0.7 K/mm3 (0.7-4.5); Lymphocytes % 6.7 % (10-50); Mean Corpuscular HGB Conc 29.6 g/dL (31.8-35.4); Mean Corpuscular Hemoglobin 23.4 pg (27.0-31.2); Mean Corpuscular Volume 79.2 fl (80-94); Mean Platelet Volume 7.4 fl (7.4-10.4); Monocytes # 0.5 K/mm3 (0.1-1.0); Monocytes % 4.9 % (1.7-9.3); Neutrophils # 9.7 K/mm3 (1.8-7.8); Platelet Count 387 K/mm3 (142-424); Red Cell Distribution Width 17.2 % (11.5-17.5); White Blood Count 11.1 K/mm3 (4.8-10.8)
[2020-10-12 14:16] LABS: MANUAL DIFFERENTIAL MANUAL DIFFERENTIAL (MANUAL DIFF)
[2020-10-12 14:27] LABS: Chloride 98 mmol/L (98-107); Sodium 138 mmol/L (136-145)
[2020-10-12 14:28] LABS: Potassium 4.4 mmoL/L (3.5-5.1)
[2020-10-12 14:30] LABS: Blood Urea Nitrogen 44 mg/dl (9-20); Creatinine Clearance Estimated 48 mL/min (50-200); Eosinophils % 1 % (0-3); Estimated Glomerular Filt Rate 39 ml/min (>60); GFR (African American) 47 ML/MIN (>60); Hypochromasia 2+; Lymphocytes % 9 % (10-50); Monocytes % 7 % (2-9); Neutrophils % 83 % (42-76); Platelet Estimate Normal; Total Cells Counted 100
[2020-10-12 14:31] LABS: Anion Gap 11.4 mEq/L (5-15); Calcium 9.4 mg/dl (8.4-10.2); Carbon Dioxide 33 mmol/L (22.0-30.0); Glucose 119 mg/dl (74-100)
[2020-10-12 14:40] LABS: NT Pro Brain Natriuretic Pep. 942 pg/mL (0-450)
--- NOTE | 2020-10-12 14:57 | PC.NURSE ---
Dr Pratt paged.
--- NOTE | 2020-10-12 15:03 | PC.NURSE ---
Dr Palmer spoke with Dr Pratt
--- NOTE | 2020-10-12 15:04 | PC.NURSE ---
WHEN OBTAINING MEDICATION LIST PATIENT STATED, NOTHING HAS CHANGED EXCEPT FOR THE HEART PILL HE ADDED.
--- NOTE | 2020-10-12 15:21 | CA_ITS ---
APPROVED REPORT EXAM: Comprehensive 2D, Doppler, and color-flow Echocardiogram [facility] [employer] Dispatcher: Jaimie Dinh RVT Ht: 5 ft 8 in Wt: 319lbs BSA: 2.49 BP: 117/95 mmHg Indications: SOA,A-FIB,CHF,CM,CAD,GERD,PACER,HTN,HLD,PALPS,EF OF 35-45% ON 10/06/20 TDS-MORBID OBESITY,PT SCANNED UPRIGHT AND FLAT ON BACK R/T SOA M-Mode Dimensions RVDd 1.61 cm (0.9-2.6) LA Diam 4.15 cm (1.9-4.0) LVDd 4.75 cm (3.5-5.7) Ao Diam 2.88 cm (2.0-3.7) LVDs 3.78 cm (3.5-5.7) IVSd 0.98 cm (0.6-1.1) PWd 0.85 cm (0.6-1.1) EF (Teich) 41.70% EPSs 1.99 cm FS 20.40% EDV (Teich) 104.90 mL TAPSE 2.21 (<1.7) ESV (Teich) 61.20 mL Pulmonary Valve PV Peak Velocity 111.00 (50-150 cm/s) Left Ventricle Technically difficult study because of the patient factors and poor acoustic windows. Left atrium is mildly enlarged, left ventricle is normal size, probably preserved left ventricular systolic function, visually estimated ejection fraction 50% with no regional wall motion abnormality, endocardial surfaces are very poorly visualized. Right Ventricle Right atrium and right ventricle are normal size and contractility, historically patient has a pacemaker the leads are not well visualized. Aortic Valve Aortic valve is minimally thickened and fibrosed, there is no aortic stenosis or aortic insufficiency. Mitral Valve Mitral valve is minimally thickened, there is mild mitral regurgitation. Tricuspid Valve Tricuspid valve is poorly visualized. Pulmonic Valve Pulmonic valve is poorly visualized. Great Vessels Aortic root is normal size. Pericardium Small circumferential pericardial effusion noted. Conclusion 1. Technically difficult and poor study, endocardial surfaces are very poorly visualized, probably preserved left ventricular systolic function, visually estimated ejection fraction 50% endocardial surfaces are very poorly visualized. 2. Mild mitral and tricuspid regurgitation. 3. Small pericardial effusion noted. Electronically signed by : René De León, 10/13/2020 15:02:22
--- NOTE | 2020-10-12 15:46 | PC.NURSE ---
CV lab at bedside
--- NOTE | 2020-10-12 16:21 | PC.NURSE ---
Preliminary Echo report given to
--- NOTE | 2020-10-12 16:52 | PC.NURSE ---
MICHELLE Ross giving report to RN at this time.
--- NOTE | 2020-10-12 16:56 | PC.NURSE ---
GAVE REPORT TO CRICKET MARTINEZ ON SECOND FLOOR AT THIS TIME
--- NOTE | 2020-10-12 17:56 | PC.NURSE ---
Pt arrived to the floor at this time
--- NOTE | 2020-10-12 18:35 | PC.NURSE ---
late entry: Pt refused for me to take off BLE dressings. Refused for me to take pics of his chronic BLE wounds.
--- NOTE | 2020-10-12 19:05 | HMH.HP ---
*Admission Date: 10/12/20 *Chief complaint: SOA, cough *History of present illness: Mr. Ellsworth is a 80-year-old male complex past medical history of CHF, CKD, chronic lymphedema and stasis dermatitis. Has been receiving home health for leg wraps when his home health nurse earlier this week noted that he was more short of breath and fatigued. She contacted our office and was encouraged to send him tot he ER. He chose not to go until today, when he presented to the ER with shortness of breath, cough, fatigue. On presentation he stated he had a fast heart rate, fatigue and SOA. IN ER noted to be in Afib with RVR, Cr actually better than baseline (2.0-2.4) at 1.7. CXR with significant bilateral opacification consistent with CHF exacerbation. Given lasix, Metroprolo, Digixon, and admitted for further management. On assessment after arriving to the floor he admits to missing a few doses of his football shaped pill as his heart rate was 140-165 over he past few days. He is not sure what he did not take, though I suspect it was his Metoprolol fo rrate control. His anemia is stable, electrolytes are baseline for him. C/o of concern for pneumonia . denies fever, nausea, emesis, melena, diarrhea, chest pain. Due for Unna boot changes tomorrow, has had some drainage through bandaging. Tolerating baseline oxygen requirement. Blood pressure improved since admission, HR still elevated ~110-120. Making good urine. Sitting in bedside chair on interview and exam. [facility] History I have reviewed the patient's past medical history: Yes Medical History: Reports:: Asthma, Atrial Fibrillation, Cardiomyopathy, Congestive Heart Failure, Congenital Heart Disease, Coronary Artery Disease, Diabetes Mellitus Type 2, Gastroesophageal Reflux Disease(GERD), Hyperlipidemia, Hypertension, Internal Pacemaker, Lung Disease, Myocardial Infarction, Palpitations, Renal Disease, Renal Insufficiency, Seizures Denies:: Cancer, Diabetes Mellitus Type 1, MRSA *Have you ever received a pneumonia vaccine?: No *Have you received a flu vaccine this season?: No Other Medical History: Reports: Anemia, Arthritis, Hypothyroidism, Other. Denies: Blood Transfusion Reaction Laterality Cases: Right: Total Hip Replacement Other Surgeries: Yes: Appendectomy, Cardiac Catheterization, Colonoscopy, Coronary Stent, EGD, Pacemaker, Other Amputation: No Fractures: No - *Social History Smoking Status: Never smoker Tobacco Type: cigarettes Alcohol Intake: never Alcohol Intake Frequency:: other Substance Use Type: denies use *Occupational Status:: disabled Housing: house Household Members: significant other *Travel in the last 8 weeks: None Family Hx:: Diabetes Review of Systems - Review of Systems Review of systems:: pertinent systems reviewed and negative unless documented below (14 point review of systems performed, pertinent positives and negatives as per HPI) - *Neurologic Denies dizziness, Denies headache(s), Denies numbness, Denies weakness Meds Home Medications Medication Instructions Recorded Confirmed Type methocarbamoL [Methocarbamol 500mg 1,000 mg PO QID 07/17/17 10/12/20 History Tablet] insulin human U-100 NPH-regulr 40 unit SQ TID ml 05/11/18 10/12/20 History 70-30 mix 100 unit/mL subcutaneous susp furosemide 80 mg tablet 80 mg PO DAILY tab 07/14/18 10/12/20 History Ferrous Sulfate [Iron] 325 mg PO DAILY 03/23/19 10/12/20 History Atorvastatin Calcium [Lipitor 40mg 40 mg PO HS 10/19/19 10/12/20 History Tab] Montelukast Sodium [Singulair 10mg 10 mg PO PM 10/19/19 10/12/20 History tablet] Oxycodone HCl 30 mg PO Q6HP PRN 10/20/19 10/12/20 History bisoprolol fumarate 5 mg tablet 5 mg PO DAILY #30 tab 09/26/20 10/12/20 Rx Amlodipine Besylate 10 mg PO DAILY 10/03/20 10/12/20 History Aspirin [Aspirin 81mg EC Tab] 81 mg PO DAILY 10/03/20 10/12/20 History Gabapentin 800 mg PO TID 10/03/20 10/12/20 History Omeprazole [Omeprazole 20mg 20 mg PO DAILY 0
[2020-10-12 21:21] LABS: POC Glucose,Bedside 76 (70-110)
[2020-10-13] VITALS (7 sets, daily range): BP systolic 102–124; BP diastolic 56–81; PULSE 64–84; RESP 17–22; TEMP 36.6–36.9; O2SAT 93–96; BMI 42.4
--- NOTE | 2020-10-13 02:59 | PC.NURSE ---
A&OX4. PT TOLERATING 2LNC T/O SHIFT. PT HAS REMAINED IN CHAIR T/O SHIFT. PT HAS HAD NO C/O SOB/COUGH/OR ANY PAIN THUS FAR. PT HAS RESTED WELL T/O SHIFT. VSS WILL CONTINUE TO MONITOR.
--- NOTE | 2020-10-13 06:30 | HMH.ACPN2 ---
Internal Medicine - PN: Subj *Date: 10/13/20 *Time: 06:30 Exam Vital signs and Labs for Last 24 Hours: Temp Pulse Resp BP Pulse Ox 98.0 F 84 19 122/81 93 L 10/13/20 04:00 10/13/20 04:00 10/13/20 04:00 10/13/20 04:00 10/13/20 04:00 Laboratory Results - last 24 hr 10/12/20 14:04: WBC 11.1 H, RBC 4.10 L, Hgb 9.6 L, Hct 32.5 L, MCV 79.2 L, MCH 23.4 L, MCHC 29.6 L, RDW 17.2, Plt Count 387, MPV 7.4, Neut % (Auto) 87.0 H, Lymph % (Auto) 6.7 L, [place] % (Auto) 4.9, Eos % (Auto) 1.3, Baso % (Auto) 0.2, Neut # (Auto) 9.7 H, Lymph # (Auto) 0.7, [place] # (Auto) 0.5, Eos # (Auto) 0.2, Baso # (Auto) 0.0, Total Counted 100, Neutrophils % (Manual) 83 H, Lymphocytes % (Manual) 9 L, Monocytes % (Manual) 7, Eosinophils % (Manual) 1, Platelet Estimate Normal, Hypochromasia 2+ 10/12/20 14:04: Sodium 138, Potassium 4.4, Chloride 98, Carbon Dioxide 33 H, Anion Gap 11.4, BUN 44 H, Creatinine 1.70 H, Estimated Creat Clear 48, Estimated GFR 39 L, Est GFR ( Amer) 47 L, Glucose 119 H, Calcium 9.4, Magnesium 2.0, NT-Pro-B Natriuret Pep 942 H 10/12/20 14:05: Specimen Source Right radial, O2 % 2l nc, ABG pH 7.46 H, ABG pCO2 42.3, ABG pO2 67.3 L, ABG HCO3 29.3 H, ABG Total CO2 30.6 H, ABG O2 Saturation 93, ABG Base Excess 5.4 H, Trace Test Acceptable 10/12/20 21:12: POC Glucose 76 I & O for Last 24 hours: Intake & Output 10/10/20 10/11/20 10/12/20 10/13/20 23:59 23:59 23:59 23:59 Intake Total 360 / 360 Output Total 1250 / 1250 Balance 360 / 110 -1250 / -1250 Weight 129.529 kg 127.006 kg Assessment and Plan (1) Chronic prescription opiate use Status: Acute Category: Medical Code(s): Z79.891 - manager terminal (current) use of opiate analgesic (2) Stage 2 moderate COPD by GOLD classification Status: Chronic Category: Medical Code(s): J44.9 - Chronic obstructive pulmonary disease, unspecified (3) Acute on chronic congestive heart failure with left ventricular diastolic dysfunction Status: Acute Category: Medical Code(s): I50.33 - Acute on chronic diastolic (congestive) heart failure (4) Lymphedema in adult patient Status: Acute Category: Medical Code(s): I89.0 - Lymphedema, not elsewhere classified (5) Cardiac pacemaker in situ Status: Chronic Category: Medical Code(s): Z95.0 - Presence of cardiac pacemaker (6) Type 2 diabetes mellitus Status: Chronic Category: Medical Code(s): E11.9 - Type 2 diabetes mellitus without complications (7) Chronic kidney disease, stage 3 Status: Chronic Category: Medical Code(s): N18.3 - Chronic kidney disease, stage 3 (moderate) (8) Atrial fibrillation with RVR Status: Acute Category: Medical Code(s): I48.91 - Unspecified atrial fibrillation
--- NOTE | 2020-10-13 07:30 | HMH.PHAVTE ---
[facility] VTE Monitoring - Patient Demographics Admission date: 10/12/20 Report Date: 10/13/20 Time: 07:30 Allergies/Adverse Reactions: Patient Allergies morphine Allergy (Severe, Verified 10/03/20 06:11) Swelling of Lip/Tongue/Throat Height: 1.73 m Weight: 127.006 kg Patient Problems: Current Active Problems Stage 2 moderate COPD by GOLD classification (Chronic) CHF exacerbation (Acute) Atrial fibrillation with RVR (Acute) Chronic prescription opiate use (Acute) Acute on chronic congestive heart failure with left ventricular diastolic dysfunction (Acute) Lymphedema in adult patient (Acute) Cardiac pacemaker in situ (Chronic) Type 2 diabetes mellitus (Chronic) Chronic kidney disease, stage 3 (Chronic) - VTE Risk Labs: VTE Related Lab Results Hgb 9.6 g/dL (14.1-18.0) L 10/12/20 14:04 Hct 32.5 % (42.0-52.0) L 10/12/20 14:04 Plt Count 387 K/mm3 (142-424) 10/12/20 14:04 BUN 44 mg/dl (9-20) H 10/12/20 14:04 Creatinine 1.70 mg/dl (0.66-1.25) H 10/12/20 14:04 Estimated Creat Clear 48 mL/min (50-200) 10/12/20 14:04 - Prophylaxis VTE Prophylaxis Ordered?: Yes Types of VTE Prophylaxis: TEDS Knee High Location of Applied Device: Bilateral Lower Extremeties
[2020-10-13 08:32] LABS: Basophils % 0.2 % (0.1-2.0); Eosinophils # 0.1 K/mm3 (0.0-0.4); Eosinophils % 1.5 % (0.1-12.0); Hematocrit 30.1 % (42.0-52.0); Lymphocytes # 0.7 K/mm3 (0.7-4.5); Lymphocytes % 8.1 % (10-50); Mean Corpuscular HGB Conc 29.9 g/dL (31.8-35.4); Mean Corpuscular Hemoglobin 23.4 pg (27.0-31.2); Mean Corpuscular Volume 78.2 fl (80-94); Mean Platelet Volume 7.9 fl (7.4-10.4); Monocytes # 0.4 K/mm3 (0.1-1.0); Neutrophils # 7.6 K/mm3 (1.8-7.8); Neutrophils % 85.2 % (37.0-80.0); Platelet Count 339 K/mm3 (142-424); Red Blood Count 3.84 M/mm3 (4.60-6.20); White Blood Count 8.9 K/mm3 (4.8-10.8)
[2020-10-13 08:34] LABS: MANUAL DIFFERENTIAL MANUAL DIFFERENTIAL (MANUAL DIFF)
[2020-10-13 08:38] LABS: Chloride 96 mmol/L (98-107); Potassium 4.1 mmoL/L (3.5-5.1); Sodium 135 mmol/L (136-145)
[2020-10-13 08:41] LABS: Anion Gap 8.1 mEq/L (5-15); Blood Urea Nitrogen 39 mg/dl (9-20); Calcium 9.1 mg/dl (8.4-10.2); Carbon Dioxide 35 mmol/L (22.0-30.0); Cholesterol 112 mg/dl (140-200); Creatinine Clearance Estimated 31 mL/min (50-200); Estimated Glomerular Filt Rate 34 ml/min (>60); GFR (African American) 42 ML/MIN (>60); Glucose 160 mg/dl (74-100); Magnesium 1.9 mg/dl (1.6-2.3); Phosphorous 3.6 mg/dl (2.5-4.5); Triglycerides 108 mg/dl (30-150); VLDL Cholesterol 22 mg/dL (0-40)
[2020-10-13 08:42] LABS: Chol/HDL Ratio 6.2 (1-3.5); HDL Cholesterol 18 mg/dl (40-60)
[2020-10-13 08:52] LABS: Direct LDL Cholesterol 58.09 mg/dL (100-129)
[2020-10-13 08:58] LABS: Eosinophils % 1 % (0-3); Hypochromasia 2+; Lymphocytes % 8 % (10-50); Monocytes % 6 % (2-9); Neutrophils % 85 % (42-76); Platelet Estimate Normal; Total Cells Counted 100
[2020-10-13 08:59] LABS: Spherocytes 1+
--- NOTE | 2020-10-13 09:01 | HMH.ACPN2 ---
Internal Medicine - PN: Subj *Date: 10/13/20 *Time: 14:14 Interval history: 80-year-old male who presented with CHF exacerbation and possible COPD exacerbation. Doing better overnight with stable oxygen requirement. Breathing somewhat better but slept in bedside chair due to orthopnea. Afebrile. Edema stable in legs. Significant urine output per his report. Able to walk to the bathroom without difficulty. Denies chest pain, nausea, vomiting. Continues to complain of shortness of breath though improved. Denies dizziness or syncope. Exam Vital signs and Labs for Last 24 Hours: Temp Pulse Resp BP Pulse Ox 98.4 F 75 19 117/56 L 96 10/13/20 08:00 10/13/20 08:00 10/13/20 08:00 10/13/20 08:00 10/13/20 08:00 Laboratory Results - last 24 hr 10/12/20 14:04: WBC 11.1 H, RBC 4.10 L, Hgb 9.6 L, Hct 32.5 L, MCV 79.2 L, MCH 23.4 L, MCHC 29.6 L, RDW 17.2, Plt Count 387, MPV 7.4, Neut % (Auto) 87.0 H, Lymph % (Auto) 6.7 L, [place] % (Auto) 4.9, Eos % (Auto) 1.3, Baso % (Auto) 0.2, Neut # (Auto) 9.7 H, Lymph # (Auto) 0.7, [place] # (Auto) 0.5, Eos # (Auto) 0.2, Baso # (Auto) 0.0, Total Counted 100, Neutrophils % (Manual) 83 H, Lymphocytes % (Manual) 9 L, Monocytes % (Manual) 7, Eosinophils % (Manual) 1, Platelet Estimate Normal, Hypochromasia 2+ 10/12/20 14:04: Sodium 138, Potassium 4.4, Chloride 98, Carbon Dioxide 33 H, Anion Gap 11.4, BUN 44 H, Creatinine 1.70 H, Estimated Creat Clear 48, Estimated GFR 39 L, Est GFR ( Amer) 47 L, Glucose 119 H, Calcium 9.4, Magnesium 2.0, NT-Pro-B Natriuret Pep 942 H 10/12/20 14:05: Specimen Source Right radial, O2 % 2l nc, ABG pH 7.46 H, ABG pCO2 42.3, ABG pO2 67.3 L, ABG HCO3 29.3 H, ABG Total CO2 30.6 H, ABG O2 Saturation 93, ABG Base Excess 5.4 H, Trace Test Acceptable 10/12/20 21:12: POC Glucose 76 10/13/20 08:13: WBC 8.9, RBC 3.84 L, Hgb 9.0 L, Hct 30.1 L, MCV 78.2 L, MCH 23.4 L, MCHC 29.9 L, RDW 17.0, Plt Count 339, MPV 7.9, Neut % (Auto) 85.2 H, Lymph % (Auto) 8.1 L, [place] % (Auto) 5.0, Eos % (Auto) 1.5, Baso % (Auto) 0.2, Neut # (Auto) 7.6, Lymph # (Auto) 0.7, [place] # (Auto) 0.4, Eos # (Auto) 0.1, Baso # (Auto) 0.0, Total Counted 100, Neutrophils % (Manual) 85 H, Lymphocytes % (Manual) 8 L, Monocytes % (Manual) 6, Eosinophils % (Manual) 1, Platelet Estimate Normal, Hypochromasia 2+, Spherocytes 1+ 10/13/20 08:13: Sodium 135 L, Potassium 4.1, Chloride 96 L, Carbon Dioxide 35 H, Anion Gap 8.1, BUN 39 H, Creatinine 1.90 H, Estimated Creat Clear 31, Estimated GFR 34 L, Est GFR ( Amer) 42 L, Glucose 160 H D, Calcium 9.1, Phosphorus 3.6, Magnesium 1.9, Triglycerides 108, Cholesterol 112 L, LDL Cholesterol Direct 58.09 L, VLDL Cholesterol 22, HDL Cholesterol 18 L, Cholesterol/HDL Ratio 6.2 H I & O for Last 24 hours: Intake & Output 10/10/20 10/11/20 10/12/20 10/13/20 23:59 23:59 23:59 23:59 Intake Total 360 / 360 240 / 240 Output Total 1550 / 1550 Balance 360 / 110 -1310 / -1310 Weight 129.529 kg 127.006 kg - Constitutional mild distress, morbidly obese, chronically ill appearing - *Routine HEENT Exam Head: Present: normocephalic Eye: Present: EOMI, PERRL ENT: Present: mucous membranes moist. Absent: dentition normal - *Routine Neck Exam Present: supple. Absent: lymphadenopathy - *Routine Respiratory Exam Present: prolonged expiratory phase, crackles (Bilateral bases, interval improvement), distant breath sounds. Absent: wheezes - *Routine Cardiovascular Exam Present: irregularly irregular. Absent: murmur - *Routine Abdominal Exam Present: soft, normoactive bowel sounds. Absent: tenderness - *Routine Extremities Exam Present: edema (Dense edema, Unna boots removed today, foul-smelling drainage from right lower extremity at location of previous cellulitis. No bleeding.). Absent: cyanosis, clubbing - *Routine Skin Exam Present: warm, rash (See above) - *Routine Neurological Exam Present: alert, oriented X3 Assessment and Plan (1) Acute on chronic jaycee
--- NOTE | 2020-10-13 09:29 | HMH.PHAINT ---
MEDICATION RECONCILIATION COMPLETED USING EXTERNAL FILL HISTORY AND PREVIOUS DISCHARGE ORDERS. MANY MAINTENANCE MEDS NOT FILLED SINCE 05/2020
--- NOTE | 2020-10-13 09:34 | HMH.PHACONS ---
- Pharmacy Consult Date: 10/13/20 Time: 09:35 Referring provider: DR. BUTLER Reason for Consult:: VANCOMYCIN DOSING Allergies and ADEs:: Allergies Allergy/AdvReac Type Severity Reaction Status Date / Time morphine Allergy Severe Swelling Verified 10/03/20 06:11 of Lip/Tongue/Throat Home Medications:: Home Medications Medication Instructions Recorded Confirmed Type methocarbamoL [Methocarbamol 500mg 1,000 mg PO QID 07/17/17 10/13/20 History Tablet] insulin human U-100 NPH-regulr 40 unit SQ TID ml 05/11/18 10/12/20 History 70-30 mix 100 unit/mL subcutaneous susp furosemide 80 mg tablet 80 mg PO DAILY tab 07/14/18 10/12/20 History Ferrous Sulfate [Iron] 325 mg PO DAILY 03/23/19 10/12/20 History Atorvastatin Calcium [Lipitor 40mg 40 mg PO HS 10/19/19 10/12/20 History Tab] Montelukast Sodium [Singulair 10mg 10 mg PO HS 10/19/19 10/13/20 History tablet] Oxycodone HCl 30 mg PO Q6HP PRN 10/20/19 10/12/20 History bisoprolol fumarate 5 mg tablet 5 mg PO DAILY #30 tab 09/26/20 10/12/20 Rx Amlodipine Besylate 10 mg PO DAILY 10/03/20 10/13/20 History Aspirin [Aspirin 81mg EC Tab] 81 mg PO DAILY 10/03/20 10/13/20 History Gabapentin 800 mg PO TID 10/03/20 10/12/20 History Omeprazole [Omeprazole 20mg 20 mg PO DAILY 10/03/20 10/12/20 History Capsule] allopurinoL [Allopurinol 300mg 300 mg PO DAILY 10/03/20 10/12/20 History tablet] lisinopriL [Lisinopril] 40 mg PO DAILY 10/03/20 10/13/20 History Metoprolol Succinate [Metoprolol 25 mg PO BID 10/12/20 10/12/20 History Succinate 25mg Tablet*] Height: 1.73 m Weight: 127.006 kg Laboratory Results:: Laboratory Results - last 24 hr 10/12/20 14:04: WBC 11.1 H, RBC 4.10 L, Hgb 9.6 L, Hct 32.5 L, MCV 79.2 L, MCH 23.4 L, MCHC 29.6 L, RDW 17.2, Plt Count 387, MPV 7.4, Neut % (Auto) 87.0 H, Lymph % (Auto) 6.7 L, [place] % (Auto) 4.9, Eos % (Auto) 1.3, Baso % (Auto) 0.2, Neut # (Auto) 9.7 H, Lymph # (Auto) 0.7, [place] # (Auto) 0.5, Eos # (Auto) 0.2, Baso # (Auto) 0.0, Total Counted 100, Neutrophils % (Manual) 83 H, Lymphocytes % (Manual) 9 L, Monocytes % (Manual) 7, Eosinophils % (Manual) 1, Platelet Estimate Normal, Hypochromasia 2+ 10/12/20 14:04: Sodium 138, Potassium 4.4, Chloride 98, Carbon Dioxide 33 H, Anion Gap 11.4, BUN 44 H, Creatinine 1.70 H, Estimated Creat Clear 48, Estimated GFR 39 L, Est GFR ( Amer) 47 L, Glucose 119 H, Calcium 9.4, Magnesium 2.0, NT-Pro-B Natriuret Pep 942 H 10/12/20 14:05: Specimen Source Right radial, O2 % 2l nc, ABG pH 7.46 H, ABG pCO2 42.3, ABG pO2 67.3 L, ABG HCO3 29.3 H, ABG Total CO2 30.6 H, ABG O2 Saturation 93, ABG Base Excess 5.4 H, Trace Test Acceptable 10/12/20 21:12: POC Glucose 76 10/13/20 08:13: WBC 8.9, RBC 3.84 L, Hgb 9.0 L, Hct 30.1 L, MCV 78.2 L, MCH 23.4 L, MCHC 29.9 L, RDW 17.0, Plt Count 339, MPV 7.9, Neut % (Auto) 85.2 H, Lymph % (Auto) 8.1 L, [place] % (Auto) 5.0, Eos % (Auto) 1.5, Baso % (Auto) 0.2, Neut # (Auto) 7.6, Lymph # (Auto) 0.7, [place] # (Auto) 0.4, Eos # (Auto) 0.1, Baso # (Auto) 0.0, Total Counted 100, Neutrophils % (Manual) 85 H, Lymphocytes % (Manual) 8 L, Monocytes % (Manual) 6, Eosinophils % (Manual) 1, Platelet Estimate Normal, Hypochromasia 2+, Spherocytes 1+ 10/13/20 08:13: Sodium 135 L, Potassium 4.1, Chloride 96 L, Carbon Dioxide 35 H, Anion Gap 8.1, BUN 39 H, Creatinine 1.90 H, Estimated Creat Clear 31, Estimated GFR 34 L, Est GFR ( Amer) 42 L, Glucose 160 H D, Calcium 9.1, Phosphorus 3.6, Magnesium 1.9, Triglycerides 108, Cholesterol 112 L, LDL Cholesterol Direct 58.09 L, VLDL Cholesterol 22, HDL Cholesterol 18 L, Cholesterol/HDL Ratio 6.2 H Medical History: Reports:: Asthma, Atrial Fibrillation, Cardiomyopathy, Congestive Heart Failure, Congenital Heart Disease, Coronary Artery Disease, Diabetes Mellitus Type 2, Gastroesophageal Reflux Disease(GERD), Hyperlipidemia, Hypertension, Internal Pacemaker, Lung Disease, Myocardial Infarction, Palpitations, Renal Disease, Renal
[2020-10-13 10:22] LABS: POC Glucose,Bedside 167 (70-110)
[2020-10-13 11:48] LABS: POC Glucose,Bedside 211 (70-110)
--- NOTE | 2020-10-13 11:49 | HMH.PTWOUND ---
Rehab Inpt Wound Evaluation Rehab IP Wound Evaluation Start: 10/13/20 08:00 Freq: ONCE Status: Active Protocol: Document 10/13/20 11:46 PHOToriJAIR (Rec: 10/13/20 11:49 PHORJAIR [id number]) Rehab PT Wound Assessment Subjective Subjective 80 yowm adm to [facility] with increased A-fib and generalized weakness. Long hx of B LE edema with open sores, remains worse on R LE. Wound Right Lower Lateral [place] Wound Type Stasis Ulcer Is This a Chronic Wound Yes Wound Length (cm) 5.0 Wound Width (cm) 8.0 Wound Bed Appearance Beefy Red Wound Margins Description Indistinct Edema Type Pitting Edema Degree 3+ Query Text:1+ Trace, Barely Detectable, Rebound 15-30 seconds 2+ Moderate, Slight Indentation, Rebound 10-20 seconds 3+ Deep, Deeper Indentation, Rebound > 30 seconds 4+ Very Deep, Rebound > 60 seconds Edema Appearance Weeping,Hard,Open Sores Wound Drainage Description Serous Drainage Amount Large Drainage Odor Slight Odor Wound Topical Solution/Irrigant Saline Irrigant Primary Dressing Unna Boot Wound Secondary Dressing Type Gauze Roll/Wrap,Adhering Gauze Roll Wound Debridement Method Gauze Wound Debridement Amount of Tissue Minimal Removed Dressing Change Patient Tolerance Tolerated Well Plan/Recommendation Comment Continue UNNA boot changes once every 3-4 days depending on amount of drainage. Continue Home health treatment upon D/C. Eval Complexity Eval Charge Codes 03642 - Moderate Complexity PHYSICIAN CERTIFICATION: I certify the specified therapy services for Johnathon Ellsworth are required, authorized, and reviewed every 30 days.
--- NOTE | 2020-10-13 12:33 | SW/DCPLANNER ---
Addendum entered by Cherelle Ny 10/16/20 10:01: SENT PATIENT INFORMATION TO RESUME SERVICES ON THIS PATIENT THAT DISCHARGED OVER THE WEEKEND.. I MADE CONTACT WITH [facility] TO INFORM THEM HE IS HOME... Original Note: Patient is currently established with services from [facility]. Patient will need to resume services at time of discharge.
--- NOTE | 2020-10-13 13:13 | HMH.CNCARD ---
History of Present Illness Consult date: 10/13/20 Requesting physician: Nicholas Eaton Consult reason: atrial fibrillation Chief complaint: atrial fib History of present illness: 80-year-old male presented to [facility] ED with increased heart rate and progressing shortness of breath. Upon assessment patient was noted to have atrial fibrillation with RVR. Patient does have history of atrial fibrillation. Patient does have a pacemaker in place. Patient states increased shortness of breath for the past few days. Patient is noncompliant in taking his medications. Patient admits not to taking his medication that helps to regulate his heart rate. Patient is not on an anticoagulant due to GI bleed per patient. Discussed with patient the importance of taking an anticoagulant due to the increased risk for stroke due to atrial fibrillation. Patient verbalized understanding and stated he is not going to take anticoagulant because it will make his bowels bleed. Patient denies chest pain, tightness or pressure. Upon assessment this morning patient stated his shortness of breath is slightly better. Vital signs are stable. conveyor monitor reveals atrial for better controlled rate. Last PPM download was September 18, 2020 which revealed atrial fibrillation greater than 4 hours and atrial fib with RVR. Recommended anti-coagulation, patient declined. Patient does have history of congestive heart failure. Last echocardiogram in September 2020 revealed small pericardial effusion with a EF of 35 to 45%. Chest xray: CHF with bibasilar airspace disease slightly worse from the previous exam. Discussed plan of care with Dr. Pratt and PCP. PCP is recommending medication changes especially in his diuretics and beta-miquel. Cardiology is agreeable with this. Please notify cardiology of any changes in patient's condition. Stressed with patient the importance of taking his medications on a regular basis as prescribed. Patient verbalized understanding. Thank you for allowing cardiology to participate in the care of this patient. [facility] History I have reviewed the patient's past medical history: Yes Medical History: Reports:: Asthma, Atrial Fibrillation, Cardiomyopathy, Congestive Heart Failure, Congenital Heart Disease, Coronary Artery Disease, Diabetes Mellitus Type 2, Gastroesophageal Reflux Disease(GERD), Hyperlipidemia, Hypertension, Internal Pacemaker, Lung Disease, Myocardial Infarction, Palpitations, Renal Disease, Renal Insufficiency, Seizures Denies:: Cancer, Diabetes Mellitus Type 1, MRSA *Have you ever received a pneumonia vaccine?: No *Have you received a flu vaccine this season?: No Other Medical History: Reports: Anemia, Arthritis, Hypothyroidism, Other. Denies: Blood Transfusion Reaction Laterality Cases: Right: Total Hip Replacement Other Surgeries: Yes: Appendectomy, Cardiac Catheterization, Colonoscopy, Coronary Stent, EGD, Pacemaker, Other Amputation: No Fractures: No - *Social History Smoking Status: Never smoker Tobacco Type: cigarettes Alcohol Intake: never Alcohol Intake Frequency:: other Substance Use Type: denies use *Occupational Status:: disabled Housing: house Household Members: significant other *Travel in the last 8 weeks: None Family Hx:: Diabetes Meds Home Medications Medication Instructions Recorded Confirmed Type methocarbamoL [Methocarbamol 500mg 1,000 mg PO QID 07/17/17 10/13/20 History Tablet] insulin human U-100 NPH-regulr 40 unit SQ TID ml 05/11/18 10/12/20 History 70-30 mix 100 unit/mL subcutaneous susp furosemide 80 mg tablet 80 mg PO DAILY tab 07/14/18 10/12/20 History Ferrous Sulfate [Iron] 325 mg PO DAILY 03/23/19 10/12/20 History Atorvastatin Calcium [Lipitor 40mg 40 mg PO HS 10/19/19 10/12/20 History Tab] Montelukast Sodium [Singulair 10mg 10 mg PO HS 10/19/19 10/13/20 History tablet] Oxycodone HCl 30 mg PO Q6HP PRN 10/20/19 10/12/20 History bisoprolol fumarate 5 mg tablet 5
[2020-10-13 16:58] LABS: POC Glucose,Bedside 181 (70-110)
--- NOTE | 2020-10-13 17:59 | PC.NURSE ---
Pt has been pleasant and cooperative this shift. A&O X4. Pt has complained of pain X1 and received Oxycodone per MAR with favorable results. No complaints of SOA. Pt is receiving O2 via NC @ 2 LPM with sats. >90%. Telemetry reveals NSR. Lung sounds reveal expiratory wheezing. 2 + pitting edema noted to BLE. Pt continues to refuse to have pictures taken of BLE. UNNA boot placed to RLE per PT. Pt uses the urinal to void clear, yellow urine without issue. No BM this shift. Pt ambulates to/from the bathroom and throughout the room independently. Pt has sat up in the recliner for the entire shift. FSBS results have been 211 and 181. 22 G peripheral IV in the RT wrist is patent and SL. VSS. Call light within reach. Will continue to monitor.
[2020-10-13 21:17] LABS: POC Glucose,Bedside 188 (70-110)
--- NOTE | 2020-10-13 23:40 | PC.NURSE ---
PT TOLERATING 2LNC. PAIN MED GIVEN X1 FOR C/O PAIN IN BACK AND NECK. PT UP TO BATHROOM INDEPENDENTLY. PT RESTING WELL, NO OTHER C/O THUS FAR. REPORT GIVEN TO KYREE MARTINEZ
[2020-10-14] VITALS: BP 138/78; PULSE 70; PULSE 77; RESP 18; TEMP 36.8; O2SAT 93
--- NOTE | 2020-10-14 00:05 | HMH.DCSUM ---
General - General Admission date:: 10/12/20 Discharge date: 10/14/20 HPI HPI: Mr. Ellsworth is a 80-year-old male complex past medical history of CHF, CKD, chronic lymphedema and stasis dermatitis. Has been receiving home health for leg wraps when his home health nurse earlier this week noted that he was more short of breath and fatigued. She contacted our office and was encouraged to send him tot he ER. He chose not to go until today, when he presented to the ER with shortness of breath, cough, fatigue. On presentation he stated he had a fast heart rate, fatigue and SOA. IN ER noted to be in Afib with RVR, Cr actually better than baseline (2.0-2.4) at 1.7. CXR with significant bilateral opacification consistent with CHF exacerbation. Given lasix, Metroprolo, Digixon, and admitted for further management. On assessment after arriving to the floor he admits to missing a few doses of his football shaped pill as his heart rate was 140-165 over he past few days. He is not sure what he did not take, though I suspect it was his Metoprolol fo rrate control. His anemia is stable, electrolytes are baseline for him. C/o of concern for pneumonia . denies fever, nausea, emesis, melena, diarrhea, chest pain. Due for Unna boot changes tomorrow, has had some drainage through bandaging. Tolerating baseline oxygen requirement. Blood pressure improved since admission, HR still elevated ~110-120. Making good urine. Sitting in bedside chair on interview and exam. Hospital Course Hospital Course: 80-year-old with multiple comorbidities, significant cardiac history, admitted for A. fib with RVR and volume overload. Additionally had some concern for COPD exacerbation on imaging. Diuresed aggressively with good response. Initiated on metoprolol at higher dose. Patient's rate controlled within first 12 hours. Improvement in oxygen requirement as well. Remained hemodynamically stable. Wound care saw patient's legs and we wrapped in Unna boots. Initiated on antibiotics empirically however given appearance of drainage, slight smell to drainage, and concern for concurrent COPD/pneumonic process along with CHF exacerbation. With clinical improvement on day of discharge, decreasing oxygen requirement, and remaining afebrile, patient meeting criteria to go home. We will continue metoprolol at higher dose 50 mg twice a day. Encouraged compliance with medication as this complicates his care and appears to have led to this admission due to not taking medications as prescribed. Will transition from Lasix to Bumex for improved delivery of diuretic to kidneys/tubules. Close follow-up to assess weight, volume status, blood pressure and heart rate. Medically stable for discharge home today. Objective Vital signs: Temp Pulse Resp BP Pulse Ox 98.0 F 79 18 102/60 L 95 10/13/20 20:00 10/13/20 20:00 10/13/20 20:00 10/13/20 20:00 10/13/20 20:08 Narrative: - Constitutional No acute distress, sleeping on interview in bedside chair. morbidly obese, chronically ill appearing - *Routine HEENT Exam Head: Present: normocephalic Eye: Present: EOMI, PERRL ENT: Present: mucous membranes moist. Absent: dentition normal - *Routine Neck Exam Present: supple. Absent: lymphadenopathy - *Routine Respiratory Exam Present: prolonged expiratory phase, resolution of crackles, distant breath sounds. Absent: wheezes - *Routine Cardiovascular Exam Present: irregularly irregular, rate controlled. Absent: murmur - *Routine Abdominal Exam Present: soft, normoactive bowel sounds. Absent: tenderness - *Routine Extremities Exam Present: edema (Dense edema, Unna boots in place. Nontender, no bleeding.). Absent: cyanosis, clubbing - *Routine Skin Exam Present: warm, rash (See above) - *Routine Neurological Exam Present: alert, oriented X3 Results Labs on day of discharge: Labs from last 24 hours 10/13/20 10/13/20 10/13/20 19:5
[2020-10-14 04:00] VITALS: BP 103/57; PULSE 70; PULSE 76; RESP 18; TEMP 36.6; O2SAT 91
[2020-10-14 04:59] VITALS: BMI 42.4
--- NOTE | 2020-10-14 05:17 | PC.NURSE ---
PT resting comfortly with eyes closed, sleeping throughout the shift. Patient in no acute distress, will continue to monitor.
[2020-10-14 06:01] LABS: POC Glucose,Bedside 188 (70-110)
[2020-10-14 07:18] LABS: Basophils % 0.2 % (0.1-2.0); Eosinophils # 0.2 K/mm3 (0.0-0.4); Eosinophils % 2.1 % (0.1-12.0); Hematocrit 30.6 % (42.0-52.0); Hemoglobin 9.1 g/dL (14.1-18.0); Lymphocytes # 0.7 K/mm3 (0.7-4.5); Mean Corpuscular HGB Conc 29.6 g/dL (31.8-35.4); Mean Corpuscular Hemoglobin 23.5 pg (27.0-31.2); Mean Corpuscular Volume 79.2 fl (80-94); Mean Platelet Volume 7.9 fl (7.4-10.4); Monocytes # 0.4 K/mm3 (0.1-1.0); Monocytes % 4.6 % (1.7-9.3); Neutrophils # 6.6 K/mm3 (1.8-7.8); Neutrophils % 84.1 % (37.0-80.0); Platelet Count 364 K/mm3 (142-424); Red Blood Count 3.87 M/mm3 (4.60-6.20); Red Cell Distribution Width 16.9 % (11.5-17.5); White Blood Count 7.8 K/mm3 (4.8-10.8)
[2020-10-14 07:24] LABS: Chloride 95 mmol/L (98-107)
[2020-10-14 07:25] LABS: Potassium 4.4 mmoL/L (3.5-5.1); Sodium 134 mmol/L (136-145)
[2020-10-14 07:27] LABS: Alanine Aminotransferase 12 U/L (12-78); Aspartate Amino Transferase 15 U/L (17-59); Blood Urea Nitrogen 47 mg/dl (9-20); Creatinine Clearance Estimated 26 mL/min (50-200); Estimated Glomerular Filt Rate 28 ml/min (>60); GFR (African American) 33 ML/MIN (>60)
[2020-10-14 07:28] LABS: Albumin Level 3.4 g/dl (3.5-5.0); Albumin/Globulin Ratio 1.1 (1.1-1.8); Alkaline Phosphatase 77 U/L (38-126); Anion Gap 7.4 mEq/L (5-15); Bilirubin,Total 0.7 mg/dl (0.2-1.3); Calcium 8.9 mg/dl (8.4-10.2); Carbon Dioxide 36 mmol/L (22.0-30.0); Globulin 3.1 g/dL (1.3-3.2); Glucose 177 mg/dl (74-100); Magnesium 2.1 mg/dl (1.6-2.3); Total Protein,Serum 6.5 g/dl (6.3-8.2)
[2020-10-14 07:37] VITALS: BP 118/54; PULSE 76; RESP 18; TEMP 36.8; O2SAT 96
[2020-10-14 08:00] VITALS: PULSE 70; PULSE 76; RESP 18; O2SAT 96
== END 2020-10-14 10:23 | disposition home health service (06) ==
LOC: ER 15:23 → 2ND 15:50
PROVIDERS: Admitting Provider Internal Medicine Adolescent Medicine; Emergency Provider Emergency Medicine; PCP Internal Medicine Adolescent Medicine; Visit Provider Internal Medicine Adolescent Medicine
DX: I48.91 Unspecified atrial fibrillation (principal); E11.22 Type 2 diabetes mellitus with diabetic chronic kidney disease; Z79.4 Long term (current) use of insulin; I50.33 Acute on chronic diastolic (congestive) heart failure; I13.0 Hypertensive heart and chronic kidney disease with heart failure and stage 1 through stage 4 chronic kidney disease, or unspecified chronic kidney disease; E03.9 Hypothyroidism, unspecified; I42.9 Cardiomyopathy, unspecified; N18.30 Chronic kidney disease, stage 3 unspecified; I89.0 Lymphedema, not elsewhere classified; Z95.0 Presence of cardiac pacemaker; I49.5 Sick sinus syndrome; I25.2 Old myocardial infarction; I25.10 Atherosclerotic heart disease of native coronary artery without angina pectoris; Z68.41 Body mass index [BMI] 40.0-44.9, adult; E66.01 Morbid (severe) obesity due to excess calories; Z79.891 Long term (current) use of opiate analgesic; Z79.899 Other long term (current) drug therapy
CPT/HCPCS: 36415; 71045; 80048; 80053; 80061; 82803; 82962; 83735; 83880; 84100; 85007; 85025; 93005; 93306; 94761; 99283; G0378; J3370

== ENCOUNTER 2020-10-19 12:47 | Observation (INO) | payer MEDICARE, SELFPAY ==
[2020-10-19 12:56] VITALS: BP 138/66; PULSE 120; RESP 22; TEMP 36.8; O2SAT 98; BMI 42.9
--- NOTE | 2020-10-19 12:58 | PC.NURSE ---
Pt arrived to the floor at this time
--- NOTE | 2020-10-19 13:04 | CT_ITS ---
PROCEDURE: CT CHEST WO CON CLINICAL INDICATION: worsening shortness of breath, asbestos exposure COMPARISON: CT CHESTWO CT chest wo con from 03/23/2018 CR XR CHEST PORTABLE from 10/12/2020 TECHNIQUE: Axial images obtained with sagittal and coronal reformats. All CT scans at the facility use one or more dose reduction, viz: automated exposure control, ma/kV adjustment per patient size (including targeted exams where dose is matched to indication, i.e. head), or iterative reconstruction technique. FINDINGS: There is mild cardiomegaly. Coronary artery calcifications and/or stents noted. There is a pericardial effusion measuring approximately 2 cm in thickness posteriorly. Artifact is present from cardiac pacemaker device. No obvious mediastinal or hilar mass. There are scattered small pneumatocele [place] right upper and right lower lobe the largest measuring 2 cm in the right upper lobe. There is trace right pleural effusion and a small left pleural effusion. Left hemidiaphragm is elevated. Atelectatic changes are present in the left lung base. Patchy density ground-glass density is present in the left perihilar region within the lingula as well as right perihilar area. There are old left-sided rib fractures. There is a stable left adrenal nodule at 16 mm. Gynecomastia is noted. IMPRESSION: 1. Cardiomegaly with pericardial effusion. 2. Bilateral pleural effusions. There is some faint ground-glass attenuation in the perihilar regions which could represent pulmonary edema. 3. Moderate atelectatic changes in the left lower lobe felt to be due to compressive atelectasis from the left pleural effusion and elevated left hemidiaphragm. Dictated by: Trace Nair MD 10/19/2020 15:41 Trace Nair MD in [place] 10/19/2020 15:41
[2020-10-19 13:42] LABS: Basophils % 0.2 % (0.1-2.0); Eosinophils # 0.1 K/mm3 (0.0-0.4); Eosinophils % 1.3 % (0.1-12.0); Hemoglobin 9.1 g/dL (14.1-18.0); Lymphocytes # 0.7 K/mm3 (0.7-4.5); Lymphocytes % 6.6 % (10-50); Mean Corpuscular HGB Conc 29.4 g/dL (31.8-35.4); Mean Corpuscular Hemoglobin 23.2 pg (27.0-31.2); Mean Corpuscular Volume 79.1 fl (80-94); Mean Platelet Volume 7.7 fl (7.4-10.4); Monocytes # 0.6 K/mm3 (0.1-1.0); Monocytes % 5.4 % (1.7-9.3); Neutrophils # 9.2 K/mm3 (1.8-7.8); Neutrophils % 86.5 % (37.0-80.0); Platelet Count 447 K/mm3 (142-424); Red Blood Count 3.92 M/mm3 (4.60-6.20); Red Cell Distribution Width 17.5 % (11.5-17.5); White Blood Count 10.6 K/mm3 (4.8-10.8)
[2020-10-19 13:44] LABS: Alanine Aminotransferase 17 U/L (12-78); Albumin Level 3.6 g/dl (3.5-5.0); Albumin/Globulin Ratio 1.1 (1.1-1.8); Alkaline Phosphatase 74 U/L (38-126); Anion Gap 10.3 mEq/L (5-15); Aspartate Amino Transferase 20 U/L (17-59); Bilirubin,Total 0.6 mg/dl (0.2-1.3); Blood Urea Nitrogen 51 mg/dl (9-20); Calcium 9.2 mg/dl (8.4-10.2); Carbon Dioxide 33 mmol/L (22.0-30.0); Chloride 104 mmol/L (98-107); Creatinine Clearance Estimated 31 mL/min (50-200); Estimated Glomerular Filt Rate 34 ml/min (>60); GFR (African American) 42 ML/MIN (>60); Globulin 3.3 g/dL (1.3-3.2); Glucose 56 mg/dl (74-100); MANUAL DIFFERENTIAL MANUAL DIFFERENTIAL (MANUAL DIFF); Magnesium 2.2 mg/dl (1.6-2.3); Potassium 4.3 mmoL/L (3.5-5.1); Sodium 143 mmol/L (136-145); Total Protein,Serum 6.9 g/dl (6.3-8.2)
--- NOTE | 2020-10-19 13:54 | HMH.HP ---
*Admission Date: 10/19/20 *Chief complaint: A-fib with RVR, dyspnea on exertion *History of present illness: Mr. Ellsworth is a 80-year-old gentleman with multiple comorbidities including COPD on chronic nighttime oxygen therapy, chronic diastolic CHF, uncontrolled insulin-dependent diabetes, stage IV CKD, chronic stasis dermatitis of lower legs, atrial fibrillation, and gout. He was admitted last week to [facility] for CHF exacerbation with A. fib with RVR. Responded well to diuresis, adjusted rate control medication with increasing metoprolol dosage. Stopped his bisoprolol and amlodipine. Transitioned diuretic for home use to Bumex. And discharged him on empiric antibiotics of Levaquin and doxycycline for mild infection of right leg lymphedema and questionable pneumonia on imaging. Patient presents to the office today with his (first time meeting her). She states the Bumex made him go out of his head . She stopped it after 2 days. Was giving it to him along with his Lasix however. Has been giving his antibiotics as prescribed per her report. She is unclear however about his blood pressure/rate control regimen. Mr. Ellsworth states he has been more fatigued and short of breath since getting home from the hospital. Denies any fevers. Denies any nausea or vomiting. Denies any chest pain. Still making urine. At discharge, was set up with home health to address his chronic lymphedema, medication management, and for twice a week Unna boot wraps on his legs. He unfortunately has rescheduled those appointments and they have yet to see him at home. His removed his Unna boot last night that was placed at the hospital on Friday. Still having clear drainage from his leg however no foul smell or purulence. Came to the office without oxygen today. EKG in the office showed concern for A. fib with RVR and numerous PVCs. Patient needs labs, reevaluation of his tachyarrhythmia, and would benefit from hospitalization. Informed to go home and get his medications (every bottle of medication that he has) and head to the hospital for admission and further management. - Contacted pharmacy to assist with reviewing medications and verifying compliance/appropriate doses. - Cardiology consulted to assist with A. fib and medication management as they see him regularly as an outpatient. [facility] History I have reviewed the patient's past medical history: Yes Medical History: Reports:: Asthma, Atrial Fibrillation, Cardiomyopathy, Congestive Heart Failure, Congenital Heart Disease, Coronary Artery Disease, Diabetes Mellitus Type 2, Gastroesophageal Reflux Disease(GERD), Hyperlipidemia, Hypertension, Internal Pacemaker, Lung Disease, MRSA, Myocardial Infarction, Palpitations, Renal Disease, Renal Insufficiency, Seizures Denies:: Cancer, Diabetes Mellitus Type 1 *Have you ever received a pneumonia vaccine?: No *Have you received a flu vaccine this season?: No Other Medical History: Reports: Anemia, Arthritis, Hypothyroidism, Other. Denies: Blood Transfusion Reaction Laterality Cases: Right: Total Hip Replacement Other Surgeries: Yes: Appendectomy, Cardiac Catheterization, Colonoscopy, Coronary Stent, EGD, Pacemaker, Other Amputation: No Fractures: No - *Social History Smoking Status: Never smoker Tobacco Type: cigarettes Alcohol Intake: never Alcohol Intake Frequency:: other Substance Use Type: denies use *Occupational Status:: other Housing: house Household Members: spouse *Travel in the last 8 weeks: None Family Hx:: Unable to obtain Review of Systems - Review of Systems Review of systems:: pertinent systems reviewed and negative unless documented below (14 point review of systems performed, pertinent positives and negatives as per HPI) Meds Home Medications Medication Instructions Recorded Confirmed Type methocarbamoL [Methocarbamol 500mg 1,000 mg PO QID 07/17/17 10/19/20 History Tablet] insulin human U-100 NPH-regulr 40 unit SQ TID ml 05/11/1810/19
[2020-10-19 14:02] VITALS: PULSE 98; O2SAT 94
--- NOTE | 2020-10-19 14:40 | HMH.CNCARD ---
History of Present Illness Consult date: 10/19/20 Requesting physician: Nicholas Eaton Consult reason: atrial fibrillation Chief complaint: Rapid HR, edema Additional Medical History:: 1. Dyspnea chronic secondary to oxygen requiring COPD and history of asbestosis 2. Edema of the lower extremities felt secondary to venous insufficiency and lymphedema 3. Cardiomyopathy, improved on medical therapy. 4. NYHA class III and ACC/AHA stage C chronic combined systolic/diastolic congestive heart failure A. Echocardiogram on 02/20/2018 revealed EF of 45% with segmental wall motion abnormality. B. Echo, 09/2019, EF 50% C. Echo, 09/2020, EF 35-45% with variability due to A. fib D. Limited echo, 10/12/2020, Technically difficult study but with EF 50%. 5. Coronary artery disease involving [place] coronary artery of [place] heart with other form of angina pectoris A. Drug-eluting stent deployment to the proximal LAD on 07/18/2017. B. Severe left ventricular dilation with severely reduced ejection fraction (25%) and severe critically elevated LVEDP (07/08/17) C. [facility], 02/2018, ANGIOGRAPHIC RESULTS: 1. The left main artery normal 2. The left anterior descending artery has proximal tendon 20% stenoses with a mid vessel concentric 40% stenosis 3. The circumflex artery is nondominant yet still a large vessel with proximal 20% stenoses and mid vessel 10% stenoses large first obtuse marginal artery has mild 10% luminal irregularities 4. The right coronary artery is a large dominant vessel and has a proximal 20% and mid vessel concentric 40% followed by distal eccentric tendon 20% stenoses 5. The CASTRO ventriculogram reveals moderate left ventricular dilatation with reduced ejection fraction estimated at 30-35% 6. The left ventricular end-diastolic pressure severely elevated at 40 to 45 mmHg IMPRESSION: 1. Nonflow limiting coronary artery disease as described above 2. Severe left ventricular dysfunction with dilated left ventricle and severely elevated LVEDP consistent with decompensated systolic congestive heart failure PLAN: 1. Patient requires aggressive diuresis 2. Standard therapy for systolic heart failure 3. Patient should be evaluated for possible AICD and possible [employer]-D if a candidate D. [place] [place], 05/2020, no ischemia with EF 56%. 6. Hypertension 7. Hyperlipidemia, on statin therapy 8. Type II diabetes with complication unspecified long-term insulin usage A. With renal disease 9. 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 A. fib with episodes lasting longer than 4 hrs on interrogation, 08/2020. Started on Xarelto but then stopped due to GI bleed and need for blood transfusion. 10. Chronic kidney disease, stage III A. Creatinine 1.9, creatinine clearance 31, GFR 34 on 10/19/2020 B. Chronic anemia with Hgb around 9 History of present illness: Mr. Ellsworth is a 80-year-old gentleman with multiple comorbidities including COPD on chronic nighttime oxygen therapy, chronic diastolic CHF, uncontrolled insulin-dependent diabetes, stage IV CKD, chronic stasis dermatitis of lower legs, atrial fibrillation, and gout. [facility] with A. fib with RVR. Responded well to diuresis, adjusted rate control medication with increasing metoprolol dosage. Stopped his bisoprolol and amlodipine. Transitioned diuretic for home use to Bumex. And discharged him on empiric antibiotics of Levaquin and doxycycline for mild infection of right leg lymphedema and questionable pneumonia on imaging. Patient presents to the office today with his (first time meeting her). She states the Bumex made him go out of his head . She stopped it after 2 days. Was giving it to him along with his Lasix however. Has been giving his antibiotics as prescribed per her report. She is unclear however about his blood pressure/rate control regimen. Mr. Ellsworth
--- NOTE | 2020-10-19 14:42 | PC.WOUNDNOTE ---
BLE wounds, lymphedema
[2020-10-19 14:53] LABS: Anisocytosis 1+; Eosinophils % 2 % (0-3); Hypochromasia 2+; Lymphocytes % 6 % (10-50); Microcytosis 1+; Monocytes % 5 % (2-9); Neutrophils % 87 % (42-76); Platelet Estimate Normal; Stomatocytes 2+; Total Cells Counted 100
--- NOTE | 2020-10-19 15:04 | HMH.PULMCON ---
*Admission Date: 10/19/20 *Reason for consult:: Pneumonia *History of present illness: Mr. Ellsworth is a 80-year-old male with no significant smoking history, multiple comorbidities including chronic lymphedema, recurrent cellulitis, CHF, A. fib RVR recently been discharged on the hospital with antibiotics for possible pneumonia however not taking his medications presented to the hospital again complaining of worsening lower extremity swelling. On further questioning patient states his breathing has been improving since his recent discharge. He currently denies any productive phlegm. He states that his respiratory status is at his baseline. Patient uses oxygen during the daytime as needed and nocturnal oxygen therapy at 1 to 2 L. [facility] History Medical History: Reports:: Asthma, Atrial Fibrillation, Cardiomyopathy, Congestive Heart Failure, Congenital Heart Disease, Coronary Artery Disease, Diabetes Mellitus Type 2, Gastroesophageal Reflux Disease(GERD), Hyperlipidemia, Hypertension, Internal Pacemaker, Lung Disease, MRSA, Myocardial Infarction, Palpitations, Renal Disease, Renal Insufficiency, Seizures Denies:: Cancer, Diabetes Mellitus Type 1 *Have you ever received a pneumonia vaccine?: No *Have you received a flu vaccine this season?: No Other Medical History: Reports: Anemia, Arthritis, Hypothyroidism, Other. Denies: Blood Transfusion Reaction Laterality Cases: Right: Total Hip Replacement Other Surgeries: Yes: Appendectomy, Cardiac Catheterization, Colonoscopy, Coronary Stent, EGD, Pacemaker, Other Amputation: No Fractures: No - *Social History Smoking Status: Never smoker Tobacco Type: cigarettes Alcohol Intake: never Alcohol Intake Frequency:: other Substance Use Type: denies use *Occupational Status:: other Housing: house Household Members: spouse *Travel in the last 8 weeks: None Family Hx:: Unable to obtain ROS - Card Reports shortness of breath, Reports shortness of breath with activity, Reports leg swelling, Reports leg sores - Resp Respiratory: Reports dyspnea, Reports dyspnea on exertion, Denies excessive phlegm production, Denies coughing up blood, Reports cough with sputum production - GI Gastrointestingal: Denies: abdominal pain - [place] Musculoskeletal: Reports abnormal gait, Reports joint pain - Psych Reports abnormal sleep pattern Meds Home Medications Medication Instructions Recorded Confirmed Type methocarbamoL [Methocarbamol 500mg 1,000 mg PO QID 07/17/17 10/19/20 History Tablet] insulin human U-100 NPH-regulr 40 unit SQ TID ml 05/11/18 10/19/20 History 70-30 mix 100 unit/mL subcutaneous susp Ferrous Sulfate [Iron] 325 mg PO DAILY 03/23/19 10/19/20 History Atorvastatin Calcium [Lipitor 40mg 40 mg PO HS 10/19/19 10/19/20 History Tab] Montelukast Sodium [Singulair 10mg 10 mg PO HS 10/19/19 10/19/20 History tablet] Oxycodone HCl 30 mg PO Q6HP PRN 10/20/19 10/19/20 History Aspirin [Aspirin 81mg EC Tab] 81 mg PO DAILY 10/03/20 10/19/20 History Gabapentin 800 mg PO TID 10/03/20 10/19/20 History Omeprazole [Omeprazole 20mg 20 mg PO DAILY 10/03/20 10/19/20 History Capsule] allopurinoL [Allopurinol 300mg 300 mg PO DAILY 10/03/20 10/19/20 History tablet] lisinopriL [Lisinopril] 40 mg PO DAILY 10/03/20 10/19/20 History Bumetanide [Bumex 1mg tablet] 2 mg PO DAILY 10/19/20 10/19/20 History Doxycycline Hyclate [Doxycycline 100 mg PO BID 10/19/20 10/19/20 History 100mg Capsule] Metoprolol Tartrate [Lopressor 50 mg PO BID 10/19/20 10/19/20 History 50mg tablet] levoFLOXacin [Levaquin 500mg 500 mg PO Q48H 10/19/20 10/19/20 History tab] Allergies Allergy/AdvReac Type Severity Reaction Status Date / Time morphine Allergy Severe Swelling Verified 10/03/20 06:11 of Lip/Tongue/Throat Exam - Constitutional Constitutional:: Present: no acute distress, comfortable - HENUT Exam HENMT: Present: normocephalic, atraumatic - Eye
--- NOTE | 2020-10-19 15:07 | ECG_ITS ---
APPROVED REPORT Exam: Resting ECG HR:98 bpm ECG Measurements Heart Rate 98 AXES ME 168 P 35 QRSd 96 QRS -16 QT 354 T 111 QTc 451 Conclusion Normal sinus rhythm Low voltage QRS Cannot rule out Anterior infarct, age undetermined Abnormal ECG Electronically signed by : Rodrigo Cook, 10/20/2020 19:08:35
[2020-10-19 16:00] VITALS: BP 131/80; PULSE 100; PULSE 120; RESP 22; TEMP 36.4; O2SAT 93
[2020-10-19 17:56] VITALS: PULSE 91; RESP 20
--- NOTE | 2020-10-19 17:58 | PC.NURSE ---
SPUTUM INDUCED PT UNABLE TO MAKE COUGH. SPECIMEN CUP AT BEDSIDE. ENCOURAGE TO COUGH.
[2020-10-19 20:00] VITALS: BP 125/62; PULSE 80; PULSE 88; RESP 20; TEMP 36.7; O2SAT 93
[2020-10-19 21:18] LABS: POC Glucose,Bedside 159 (70-110)
[2020-10-20] VITALS (8 sets, daily range): BP systolic 117–148; BP diastolic 57–68; PULSE 70–92; RESP 14–20; TEMP 36.7–36.9; O2SAT 90–96; BMI 42.7
--- NOTE | 2020-10-20 05:35 | PC.NURSE ---
No acute changes. Pt has sat in chair all night and hasn't slept. He requested to have O2 mid shift after feeling soa. O2 remained in low to mid 90s. 1.5 L O2 NC was placed. Lungs diminished with crackles to (R) base. BS active. Pt states he had BM yesterday. Pt has been using urinal. Janett boots on BLE. See wound notes for pictures. No other concerns. Will continue to monitor.
[2020-10-20 06:08] LABS: POC Glucose,Bedside 186 (70-110)
[2020-10-20 06:47] LABS: Basophils % 0.1 % (0.1-2.0); Eosinophils # 0.2 K/mm3 (0.0-0.4); Eosinophils % 1.8 % (0.1-12.0); Hematocrit 30.4 % (42.0-52.0); Hemoglobin 8.6 g/dL (14.1-18.0); Lymphocytes # 0.6 K/mm3 (0.7-4.5); Lymphocytes % 7.1 % (10-50); Mean Corpuscular HGB Conc 28.4 g/dL (31.8-35.4); Mean Corpuscular Hemoglobin 22.6 pg (27.0-31.2); Mean Corpuscular Volume 79.7 fl (80-94); Mean Platelet Volume 8.1 fl (7.4-10.4); Monocytes # 0.4 K/mm3 (0.1-1.0); Monocytes % 5.1 % (1.7-9.3); Neutrophils # 7.5 K/mm3 (1.8-7.8); Neutrophils % 85.9 % (37.0-80.0); Platelet Count 350 K/mm3 (142-424); Red Blood Count 3.81 M/mm3 (4.60-6.20); Red Cell Distribution Width 17.7 % (11.5-17.5); White Blood Count 8.8 K/mm3 (4.8-10.8)
[2020-10-20 06:51] LABS: Chloride 100 mmol/L (98-107); MANUAL DIFFERENTIAL MANUAL DIFFERENTIAL (MANUAL DIFF); Potassium 4.6 mmoL/L (3.5-5.1); Sodium 138 mmol/L (136-145)
[2020-10-20 06:54] LABS: Anion Gap 9.6 mEq/L (5-15); Blood Urea Nitrogen 43 mg/dl (9-20); Calcium 9.4 mg/dl (8.4-10.2); Carbon Dioxide 33 mmol/L (22.0-30.0); Creatinine Clearance Estimated 33 mL/min (50-200); Estimated Glomerular Filt Rate 37 ml/min (>60); GFR (African American) 44 ML/MIN (>60); Glucose 191 mg/dl (74-100); Iron 19 ug/dL (49-181); Magnesium 2.1 mg/dl (1.6-2.3)
[2020-10-20 07:03] LABS: Total Iron Binding Capacity 326 ug/dL (261-462)
--- NOTE | 2020-10-20 07:11 | HMH.PHAVTE ---
[facility] Pharmacy VTE Monitoring - Patient Demographics Admission date: 10/19/20 Report Date: 10/20/20 Time: 07:11 Allergies/Adverse Reactions: Patient Allergies morphine Allergy (Severe, Verified 10/03/20 06:11) Swelling of Lip/Tongue/Throat Height: 1.73 m Weight: 127.998 kg Patient Problems: Current Active Problems Morbid obesity with BMI of 40.0-44.9, adult (Chronic) Acute on chronic congestive heart failure with right ventricular diastolic dysfunction (Acute) Anemia (Chronic) Weakness (Acute) Chronic kidney disease, stage 3 (Chronic) 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 extremities (Chronic) Uncontrolled diabetes mellitus (Acute) Dyspnea (Chronic) CAD (coronary artery disease) (Chronic) Non-compliance (Chronic) - VTE Risk Labs: VTE Related Lab Results Hgb 8.6 g/dL (14.1-18.0) L 10/20/20 06:07 Hct 30.4 % (42.0-52.0) L 10/20/20 06:07 Plt Count 350 K/mm3 (142-424) 10/20/20 06:07 BUN 43 mg/dl (9-20) H 10/20/20 06:07 Creatinine 1.80 mg/dl (0.66-1.25) H 10/20/20 06:07 Estimated Creat Clear 33 mL/min (50-200) 10/20/20 06:07 Clinical Trial Participant: No - Prophylaxis VTE Prophylaxis Ordered?: Yes Types of VTE Prophylaxis: Pharmacological Pharmacologic Type: Enoxaparin
--- NOTE | 2020-10-20 09:45 | PC.NURSE ---
Dr. Martin @ [facility] and placed pt on RA.
--- NOTE | 2020-10-20 10:17 | HMH.PNCARD ---
Subjective Date: 10/20/20 Time: 10:17 Principal diagnosis: Atrial fibrillation with rapid ventricular response Interval history: 80-year-old white male in bedside chair in no acute distress. Patient is getting IV iron at this time. Discussed further GI evaluation colonoscopy and patient adamantly refuses this due to a relative who after colonoscopy and polypectomy. Patient states he is lived a long and good life and is happy continuing the way he is currently. Exam Vital signs and Labs for Last 24 Hours: Temp Pulse Resp BP Pulse Ox 98.2 F 84 16 131/63 95 10/20/20 07:53 10/20/20 07:53 10/20/20 07:53 10/20/20 07:53 10/20/20 07:53 Laboratory Results - last 24 hr 10/19/20 13:20: WBC 10.6, RBC 3.92 L, Hgb 9.1 L, Hct 31.0 L, MCV 79.1 L, MCH 23.2 L, MCHC 29.4 L, RDW 17.5, Plt Count 447 H, MPV 7.7, Neut % (Auto) 86.5 H, Lymph % (Auto) 6.6 L, [place] % (Auto) 5.4, Eos % (Auto) 1.3, Baso % (Auto) 0.2, Neut # (Auto) 9.2 H, Lymph # (Auto) 0.7, [place] # (Auto) 0.6, Eos # (Auto) 0.1, Baso # (Auto) 0.0, Total Counted 100, Neutrophils % (Manual) 87 H, Lymphocytes % (Manual) 6 L, Monocytes % (Manual) 5, Eosinophils % (Manual) 2, Platelet Estimate Normal, Hypochromasia 2+, Anisocytosis 1+, Microcytosis 1+, Stomatocytes 2+ 10/19/20 13:20: Sodium 143, Potassium 4.3, Chloride 104, Carbon Dioxide 33 H, Anion Gap 10.3, BUN 51 H, Creatinine 1.90 H, Estimated Creat Clear 31, Estimated GFR 34 L, Est GFR ( Amer) 42 L, Glucose 56 L, Calcium 9.2, Magnesium 2.2, Total Bilirubin 0.6, AST 20, ALT 17, Alkaline Phosphatase 74, Total Protein 6.9, Albumin 3.6, Globulin 3.3 H, Albumin/Globulin Ratio 1.1 04/22/21 20:49: POC Glucose 159 H 10/20/20 05:54: POC Glucose 186 H 10/20/20 06:07: WBC 8.8, RBC 3.81 L, Hgb 8.6 L, Hct 30.4 L, MCV 79.7 L, MCH 22.6 L, MCHC 28.4 L, RDW 17.7 H, Plt Count 350, MPV 8.1, Neut % (Auto) 85.9 H, Lymph % (Auto) 7.1 L, [place] % (Auto) 5.1, Eos % (Auto) 1.8, Baso % (Auto) 0.1, Neut # (Auto) 7.5, Lymph # (Auto) 0.6 L, [place] # (Auto) 0.4, Eos # (Auto) 0.2, Baso # (Auto) 0.0 10/20/20 06:07: Sodium 138, Potassium 4.6, Chloride 100, Carbon Dioxide 33 H, Anion Gap 9.6, BUN 43 H, Creatinine 1.80 H, Estimated Creat Clear 33, Estimated GFR 37 L, Est GFR ( Amer) 44 L, Glucose 191 H D, Calcium 9.4, Magnesium 2.1, Iron 19 L, TIBC 326, Iron Saturation 5.94862 L I & O for Last 24 hours: Intake & Output 10/17/20 10/18/20 10/19/20 10/20/20 11:59 11:59 11:59 11:59 Intake Total 360 / 360 Output Total 875 / 875 Balance -515 / -515 Weight 282 lb 3 oz Microbiology Reports for the Last 24 Hours: Microbiology 10/20/20 01:00 Sputum - Expectorated Sputum Gram Stain - Final - *Routine Respiratory Exam Present: CTA bilaterally - *Routine Cardiovascular Exam Present: RRR - *Routine Extremities Exam Present: edema. Absent: cyanosis, clubbing - *Routine Neurological Exam Present: alert, oriented X3 Progress Note: A&P (1) Acute on chronic congestive heart failure with right ventricular diastolic dysfunction Status: Acute (2) Anemia Status: Chronic (3) Uncontrolled diabetes mellitus Status: Acute (4) Weakness Status: Acute (5) CAD (coronary artery disease) Status: Chronic (6) Chronic kidney disease, stage 3 Status: Chronic (7) 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 extremities Status: Chronic (8) Dyspnea Status: Chronic (9) Non-compliance Status: Chronic (10) Atrial fibrillation with RVR Status: Resolved (11) Morbid obesity with BMI of 40.0-44.9, adult Status: Chronic Assessment and Plan for All Diagnoses:: 1. Atrial fibrillation with rapid ventricular response felt due to medication noncompliance, now currently back in NSR. Patient is not a anticoagulation candidate due to GI bleed on Xarelto earlier last month. He refuses any further treatment to prevent strokes. Recommend continuing his beta-miquel therapy even uptitrating for rate a
[2020-10-20 10:23] LABS: Lymphocytes % 7 % (10-50); Monocytes % 3 % (2-9); Neutrophils % 90 % (42-76); Platelet Estimate Normal; Total Cells Counted 100
[2020-10-20 10:24] LABS: Anisocytosis 1+; Hypochromasia 2+; Microcytosis 1+; Poikilocytosis 1+; Stomatocytes 1+
--- NOTE | 2020-10-20 11:27 | HMH.ACPN2 ---
Internal Medicine - PN: Subj *Date: 10/20/20 *Time: 11:31 Interval history: Mr. Ellsworth has done well since starting metoprolol and with IV diuresis. CT of his chest reviewed, shows effusion more prominent on the left and improvement in airspace disease. Additionally shows emphysema. Stable on room air this morning. Extensive discussion today about his pain medication, appropriate dosing, and his actual regimen of taking it. Come to find out he does not take his oxycodone as prescribed. States he maybe takes 2 a day at most. This is consistent with what we have seen on previous admissions to the hospital and the fact that he has not had withdrawal symptoms by taking 1-2 doses a day. Gabapentin as well, discussed the significant dose he is on and the need to renally dose. He was hesitant this morning for me to talk with his pain clinic and discuss appropriate dosing based on kidney function. Made it clear to him my concern for the impact these meds have on his other health conditions and to the inappropriateness of his current dosing. Additionally addressed medication compliance today. Patient defers all of his meds to his . Takes no responsibility for his medications. Per review of pill bottles brought in yesterday, he did not take his antibiotics from last discharge. Discussed benefit of prepackaging meds so that he just needs to grab a pack and take it and make it easier for dosing and compliance. He likes this idea and is open to this idea. Additionally discussed decreasing medication doses and putting on long-acting formulations to decrease pill burden. Lastly, discussed his anemia and potential work-up. Patient has never had a colonoscopy and has no interest in one. Expressed my concern that microcytic anemia at his age many times correlates with colon cancer or abnormalities in the gut. Discussed for the time being given iron infusions but patient wants to think more about a colonoscopy as he is frankly not interested right now. Reports he is breathing better, denies chest pain, nausea, vomiting. Denies any confusion. Exam Vital signs and Labs for Last 24 Hours: Temp Pulse Resp BP Pulse Ox 98.5 F 72 18 148/67 H 93 L 10/20/20 11:15 10/20/20 11:15 10/20/20 11:15 10/20/20 11:15 10/20/20 11:15 Laboratory Results - last 24 hr 10/19/20 13:20: WBC 10.6, RBC 3.92 L, Hgb 9.1 L, Hct 31.0 L, MCV 79.1 L, MCH 23.2 L, MCHC 29.4 L, RDW 17.5, Plt Count 447 H, MPV 7.7, Neut % (Auto) 86.5 H, Lymph % (Auto) 6.6 L, [place] % (Auto) 5.4, Eos % (Auto) 1.3, Baso % (Auto) 0.2, Neut # (Auto) 9.2 H, Lymph # (Auto) 0.7, [place] # (Auto) 0.6, Eos # (Auto) 0.1, Baso # (Auto) 0.0, Total Counted 100, Neutrophils % (Manual) 87 H, Lymphocytes % (Manual) 6 L, Monocytes % (Manual) 5, Eosinophils % (Manual) 2, Platelet Estimate Normal, Hypochromasia 2+, Anisocytosis 1+, Microcytosis 1+, Stomatocytes 2+ 10/19/20 13:20: Sodium 143, Potassium 4.3, Chloride 104, Carbon Dioxide 33 H, Anion Gap 10.3, BUN 51 H, Creatinine 1.90 H, Estimated Creat Clear 31, Estimated GFR 34 L, Est GFR ( Amer) 42 L, Glucose 56 L, Calcium 9.2, Magnesium 2.2, Total Bilirubin 0.6, AST 20, ALT 17, Alkaline Phosphatase 74, Total Protein 6.9, Albumin 3.6, Globulin 3.3 H, Albumin/Globulin Ratio 1.1 10/19/20 20:49: POC Glucose 159 H 10/20/20 05:54: POC Glucose 186 H 10/20/20 06:07: WBC 8.8, RBC 3.81 L, Hgb 8.6 L, Hct 30.4 L, MCV 79.7 L, MCH 22.6 L, MCHC 28.4 L, RDW 17.7 H, Plt Count 350, MPV 8.1, Neut % (Auto) 85.9 H, Lymph % (Auto) 7.1 L, [place] % (Auto) 5.1, Eos % (Auto) 1.8, Baso % (Auto) 0.1, Neut # (Auto) 7.5, Lymph # (Auto) 0.6 L, [place] # (Auto) 0.4, Eos # (Auto) 0.2, Baso # (Auto) 0.0, Total Counted 100, Neutrophils % (Manual) 90 H, Lymphocytes % (Manual) 7 L, Monocytes % (Manual) 3, Platelet Estimate Normal, Hypochromasia 2+, Poikilocytosis 1+, Anisocytosis 1+, Microcytosis 1+, Stomatocytes 1+ 10/20/20 06:07: Sodium 138, Potassium 4.6, Chloride 100, Carbon Dioxide 33 H, Anion Gap 9.
[2020-10-20 11:46] LABS: POC Glucose,Bedside 246 (70-110)
--- NOTE | 2020-10-20 13:11 | HMH.PULMPN ---
Internal Medicine - PN: Subj *Date: 10/20/20 *Time: 13:11 Interval history: No acute respiratory events overnight. Exam - Constitutional Constitutional:: Present: no acute distress, comfortable - HENMT Exam HENMT: Present: normocephalic, atraumatic - Eye Exam Eyes:: Present: normal appearance both eyes and related structures - Neck Exam Neck:: Present: normal visual inspection - Respiratory Exam Respiratory:: Present: able to speak in complete sentences, no respiratory distress, normal respiratory effort, crackles. Absent: accessory muscle use, wheezing - Cardiovascular Exam Cardiac:: Present: S1, S2 - GI Exam GI:: Present: soft, obese - Skin Exam Skin: Present: warm - Neurological Exam Neurological: Present: alert, awake, normal cognition - Extremities Exam Extremities: Present: no cyanosis, no clubbing, edema Assessment and Plan (1) Acute on chronic congestive heart failure with right ventricular diastolic dysfunction Status: Acute Category: Medical Code(s): I50.82 - Biventricular heart failure; I50.33 - Acute on chronic diastolic (congestive) heart failure (2) Anemia Status: Chronic Qualifiers: Anemia type: iron deficiency Category: Medical Code(s): D64.9 - Anemia, unspecified (3) Uncontrolled diabetes mellitus Status: Acute Category: Medical Code(s): E11.65 - Type 2 diabetes mellitus with hyperglycemia (4) Weakness Status: Acute Category: Medical Code(s): R53.1 - Weakness (5) CAD (coronary artery disease) Status: Chronic Qualifiers: Category: Medical Code(s): I25.10 - Atherosclerotic heart disease of [place] coronary artery without angina pectoris (6) Chronic kidney disease, stage 3 Status: Chronic Category: Medical Code(s): N18.3 - Chronic kidney disease, stage 3 (moderate) (7) 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 extremities Status: Chronic Category: Medical Code(s): I87.2 - Venous insufficiency (chronic) (peripheral) (8) Dyspnea Status: Chronic Qualifiers: Category: Medical Code(s): R06.00 - Dyspnea, unspecified (9) Non-compliance Status: Chronic Category: Medical Code(s): Z91.19 - Patient's noncompliance with other medical treatment and regimen (10) Atrial fibrillation with RVR Status: Resolved Category: Medical Code(s): I48.91 - Unspecified atrial fibrillation (11) Morbid obesity with BMI of 40.0-44.9, adult Status: Chronic Category: Medical Code(s): E66.01 - Morbid (severe) obesity due to excess calories; Z68.41 - Body mass index [BMI]40.0-44.9, adult - Assessment and plan all Dx Assessment and Plan for all problems:: #Pneumonia: #Pleural effusion: 80-year-old no significant smoking history exposure to asbestosis for 10 to 15 years around 1969-1979chronic comorbidities including A. fib RVR, CHF, lymphedema, recurrent cellulitis with MDR's including MRSA, E. coli, Pseudomonas, Citrobacter and Citrobacter presented to the hospital complaining of worsening respiratory failure . Patient was recently discharged from the hospital with a course of levofloxacin for his pneumonia however he is not taking the medication. However patient admits improvement in his respiratory symptoms. He denies any productive phlegm, improved from prior. He also admits his respiratory status is at his baseline. He only uses inhalers/nebulizers on a as needed basis. CT chest revealed showed bilateral lower lobe infiltrates left greater than right along with left-sided effusion & possible atelectasis. Afebrile. No evidence of leukocytosis. Hemodynamically stable. Etiology of this patient's exertional dyspnea is likely multifactorial including ongoing pneumonia, CHF, A. fib RVR and deconditioning complicated by his noncompliance to medications. Patient respiratory status remained stable since admission. We will continue antibiotic course for total of 7 days. Plan: - Incentive spirometry - Levofloxacin 750 mg divya
--- NOTE | 2020-10-20 13:42 | PC.NURSE ---
PIERRE askew changed by PT (Josep).
--- NOTE | 2020-10-20 14:28 | SW/DCPLANNER ---
SENT A NEW ORDER FOR HOME HEALTH SERVICES TO [facility] PER PATIENT CHOICE HIS LAST ADMISSION.... HE WAS NEVER SEEN BECAUSE HE CAME BACK TO THE HOSPITAL... I CALLED [facility] TO LET THEM KNOW HE MAY DISCHARGE LATER TODAY OR IN THE AM... HE WILL DISCHARGE WITH HOME HEALTH PT/OT AND SKILLED NSG SERVICES....
[2020-10-20 16:54] LABS: POC Glucose,Bedside 196 (70-110)
--- NOTE | 2020-10-20 18:08 | HMH.DCSUM ---
General - General Admission date:: 10/19/20 Discharge date: 10/20/20 HPI HPI: Mr. Ellsworth is a 80-year-old gentleman with multiple comorbidities including COPD on chronic nighttime oxygen therapy, chronic diastolic CHF, uncontrolled insulin-dependent diabetes, stage IV CKD, chronic stasis dermatitis of lower legs, atrial fibrillation, and gout. He was admitted last week to [facility] for CHF exacerbation with A. fib with RVR. Responded well to diuresis, adjusted rate control medication with increasing metoprolol dosage. Stopped his bisoprolol and amlodipine. Transitioned diuretic for home use to Bumex. And discharged him on empiric antibiotics of Levaquin and doxycycline for mild infection of right leg lymphedema and questionable pneumonia on imaging. Patient presents to the office today with his (first time meeting her). She states the Bumex made him go out of his head . She stopped it after 2 days. Was giving it to him along with his Lasix however. Has been giving his antibiotics as prescribed per her report. She is unclear however about his blood pressure/rate control regimen. Mr. Ellsworth states he has been more fatigued and short of breath since getting home from the hospital. Denies any fevers. Denies any nausea or vomiting. Denies any chest pain. Still making urine. At discharge, was set up with home health to address his chronic lymphedema, medication management, and for twice a week Unna boot wraps on his legs. He unfortunately has rescheduled those appointments and they have yet to see him at home. His removed his Unna boot last night that was placed at the hospital on Friday. Still having clear drainage from his leg however no foul smell or purulence. Came to the office without oxygen today. EKG in the office showed concern for A. fib with RVR and numerous PVCs. Patient needs labs, reevaluation of his tachyarrhythmia, and would benefit from hospitalization. Informed to go home and get his medications (every bottle of medication that he has) and head to the hospital for admission and further management. - Contacted pharmacy to assist with reviewing medications and verifying compliance/appropriate doses. - Cardiology consulted to assist with A. fib and medication management as they see him regularly as an outpatient. Hospital Course Hospital Course: 80-year-old male with multiple comorbidities admitted for A. fib with RVR, volume overload, chronic lymphedema with need for wound care management. Diuresed aggressively on admission and initiated on metoprolol tartrate every 6 hours. Cardiology consulted, appreciate their recommendations. Patient responded well to diuresis with improvement in shortness of breath. Metoprolol successful in achieving rate control. Discussed extensively with Mr. Ellsworth his medication regimen and need for compliance. Discussed ways to simplify his regimen and improve compliance by decreasing frequency of doses with long-acting medications and prepackaging his pills with clinic pharmacy. Patient open to this for chronic medications other than pain meds and insulin. Transitioned to once daily long-acting metoprolol succinate with continued rate control achieved. Blood pressure remained within goal of less than 130/80 during admission. Able to titrate off oxygen during the day and use just at night when sleeping. Has chronic lung disease, oxygen dependence, pulmonology was consulted. We will plan to have patient follow-up with pulmonology in the outpatient setting. CT of chest obtained, demonstrates diffuse emphysematous changes. Patient also noted to have mild effusion left worse than right. Resume inhaler regimen at discharge. Continue supplemental oxygen as needed at night and during the day for goal sats greater than 92%. The patient's anemia, appears to be chronic microcytic anemia. Patient has declined multiple times screening colonoscopies. Concerned his blood loss may be from un
--- NOTE | 2020-10-20 18:10 | PC.NURSE ---
Verbal education provided on the following: new meds, discontinued meds, med changes (specifically Gabapentin and Oxycodone), Levaquin x 3 days (tomorrow, Friday, and Fri), to call Dr. Eaton's office on Friday and schedule f/u apt, and that outpt PT will contact for wound care to BLE. He verbalized all education provided.
--- NOTE | 2020-10-20 18:15 | PC.NURSE ---
pt has NOT required prn Oxycodone this shift.
[2020-11-07 14:53] LABS: Chlordiazepoxide <0.1 ug/mL (0.1-0.9)
[2020-11-07 20:28] LABS: Acetone <0.010 g/dL (0.000-0.010); Ethanol <0.010 g/dL (0.000-0.010); Isopropanol <0.010 g/dL (0.000-0.010); Pentobarbital <1 ug/mL (1-5)
[2020-11-07 20:29] LABS: Butalbital <1 ug/mL (1-10); Diazepam <0.1 ug/mL (0.1-0.9)
== END 2020-10-20 18:45 | disposition home or self-care (01) ==
PROVIDERS: Admitting Provider Internal Medicine Adolescent Medicine; PCP Internal Medicine Adolescent Medicine; Visit Provider Internal Medicine Adolescent Medicine
DX: R06.00 Dyspnea, unspecified (principal); I50.33 Acute on chronic diastolic (congestive) heart failure; Z91.19 Patient's noncompliance with other medical treatment and regimen; Z95.0 Presence of cardiac pacemaker; I49.5 Sick sinus syndrome; E03.9 Hypothyroidism, unspecified; Z95.5 Presence of coronary angioplasty implant and graft; I48.91 Unspecified atrial fibrillation; I25.10 Atherosclerotic heart disease of native coronary artery without angina pectoris; I13.0 Hypertensive heart and chronic kidney disease with heart failure and stage 1 through stage 4 chronic kidney disease, or unspecified chronic kidney disease; I42.9 Cardiomyopathy, unspecified; D50.9 Iron deficiency anemia, unspecified; E11.65 Type 2 diabetes mellitus with hyperglycemia; E66.01 Morbid (severe) obesity due to excess calories; Z68.41 Body mass index [BMI] 40.0-44.9, adult; Z99.81 Dependence on supplemental oxygen; J44.9 Chronic obstructive pulmonary disease, unspecified; I89.0 Lymphedema, not elsewhere classified; Z79.4 Long term (current) use of insulin; Z79.899 Other long term (current) drug therapy
CPT/HCPCS: G0379; 36415; 71250; 80048; 80053; 80306; 82962; 83540; 83550; 83735; 85007; 85025; 87070; 87205; 93005; G0378; J1439; J1956

== ENCOUNTER → 2020-11-22 11:10 | Outpatient (CLI) | payer MEDICARE, SELFPAY ==
[2020-11-22 11:38] LABS: Basophils % 0.2 % (0.1-2.0); Eosinophils # 0.2 K/mm3 (0.0-0.4); Eosinophils % 1.2 % (0.1-12.0); Hematocrit 30.1 % (42.0-52.0); Hemoglobin 8.9 g/dL (14.1-18.0); Lymphocytes # 0.9 K/mm3 (0.7-4.5); Lymphocytes % 7.7 % (10-50); MANUAL DIFFERENTIAL MANUAL DIFFERENTIAL (MANUAL DIFF); Mean Corpuscular HGB Conc 29.7 g/dL (31.8-35.4); Mean Corpuscular Hemoglobin 25.2 pg (27.0-31.2); Mean Corpuscular Volume 84.6 fl (80-94); Mean Platelet Volume 8.8 fl (7.4-10.4); Monocytes # 0.5 K/mm3 (0.1-1.0); Monocytes % 4.3 % (1.7-9.3); Neutrophils # 10.3 K/mm3 (1.8-7.8); Neutrophils % 86.6 % (37.0-80.0); Platelet Count 282 K/mm3 (142-424); Red Blood Count 3.55 M/mm3 (4.60-6.20); Red Cell Distribution Width 19.7 % (11.5-17.5); White Blood Count 11.9 K/mm3 (4.8-10.8)
[2020-11-22 12:08] LABS: Eosinophils % 1 % (0-3); Lymphocytes % 6 % (10-50); Monocytes % 2 % (2-9); Neutrophils % 91 % (42-76); Total Cells Counted 100
[2020-11-22 12:09] LABS: Anisocytosis 1+; Hypochromasia 3+; Microcytosis 2+; Platelet Estimate Normal
[2020-11-22 12:22] LABS: Chloride 101 mmol/L (98-107); Potassium 4.8 mmoL/L (3.5-5.1); Sodium 138 mmol/L (136-145)
[2020-11-22 12:24] LABS: Alanine Aminotransferase 15 U/L (12-78); Aspartate Amino Transferase 16 U/L (17-59); Blood Urea Nitrogen 43 mg/dl (9-20); Estimated Glomerular Filt Rate 34 ml/min (>60); GFR (African American) 42 ML/MIN (>60)
[2020-11-22 12:25] LABS: Albumin Level 3.3 g/dl (3.5-5.0); Albumin/Globulin Ratio 1.3 (1.1-1.8); Alkaline Phosphatase 81 U/L (38-126); Anion Gap 11.8 mEq/L (5-15); Bilirubin,Total 0.3 mg/dl (0.2-1.3); Calcium 8.7 mg/dl (8.4-10.2); Carbon Dioxide 30 mmol/L (22.0-30.0); Globulin 2.5 g/dL (1.3-3.2); Glucose 239 mg/dl (74-100); Total Protein,Serum 5.8 g/dl (6.3-8.2)
[2020-11-23 14:43] LABS: Hemoglobin A1C 6.1 % (4.0-6.0)
== END ==
PROVIDERS: Visit Provider Internal Medicine Adolescent Medicine
DX: I50.32 Chronic diastolic (congestive) heart failure (principal); E11.22 Type 2 diabetes mellitus with diabetic chronic kidney disease; Z79.4 Long term (current) use of insulin
CPT/HCPCS: 36415; 80053; 83036; 85007; 85025

== ENCOUNTER 2021-01-01 16:59 | Inpatient (IN) | payer MEDICARE, SELFPAY ==
[2021-01-01] VITALS (9 sets, daily range): BP systolic 99–153; BP diastolic 38–87; PULSE 100–131; RESP 16–22; TEMP 36.8–39.4; O2SAT 94–98; BMI 50.2; BMI 41.8
--- NOTE | 2021-01-01 17:08 | ECG_ITS ---
APPROVED REPORT Exam: Resting ECG HR:132 bpm ECG Measurements Heart Rate 132 AXES ID 174 P 3 QRSd 74 QRS -25 QT 374 T 20 QTc 554 Conclusion Sinus tachycardia with fusion complexes Low voltage QRS Cannot rule out Anterior infarct, age undetermined Abnormal ECG Electronically signed by : Rodrigo Cook, 01/02/2021 17:44:58
--- NOTE | 2021-01-01 17:19 | XR_ITS ---
PROCEDURE INFORMATION: Exam: XR Chest Exam date and time: 01/01/21 05:19 PM Age: 80 years old Clinical indication: Shortness of breath; Prior surgery; Surgery date: 6+ months; Surgery type: Pacemaker; Additional info: Tachy, SOA, fever, hypoxia TECHNIQUE: Imaging protocol: XR of the chest. Views: 1 view. COMPARISON: CT CHEST WO CON 10/19/20 01:43 PM FINDINGS: Tubes, catheters and devices: Left subclavian pacemaker leads overlie the right atrium and right ventricle. Lungs: Patchy right lower lobe infiltrate. Pleural spaces: Unremarkable. No pleural effusion. No pneumothorax. Heart/Mediastinum: Unremarkable. No cardiomegaly. Bones/joints: Unremarkable. IMPRESSION: Patchy right lower lobe infiltrate.
--- NOTE | 2021-01-01 17:21 | HMH.EDSOB ---
ED Disposition Clinical Impression: Severe sepsis Community acquired pneumonia Qualifiers: Laterality: right Lung location: lower lobe of lung Qualified Code(s): J18.9 - Pneumonia, unspecified organism Disposition: Admitted As Inpatient Condition on Discharge: Fair Referrals: Provider,Referral, [Primary Care Provider] - - Critical Care Critical Care Time: No Attestation: On 01/01/21, the high probability of a clinically significant, sudden or life threatening deterioration of the following system(s) required my full and direct attention, intervention and personal management. The time I documented below is in addition to time spent performing reported procedures but includes the following listed in this critical care notation. Medical Decision Making - Medical Records Medical records reviewed: Yes: I reviewed the patient's medical records. - Kehinde Inquiry Pt receiving controlled substance: No Vital Signs: 01/01/21 16:59 01/01/21 18:44 Temperature 102.9 F H 100.1 F H Temperature Source Oral Oral Pulse Rate 122 H Pulse Rate [Right] 131 H Respiratory Rate 16 18 Blood Pressure 143/87 H Blood Pressure [Right Arm] 153/63 H Blood Pressure Mean [Right Arm] 93 02 Sat by Pulse Oximetry 94 L 95 Oxygen Delivery Method Room Air Room Air - Lab Data Lab results reviewed: Yes: I reviewed the patient's lab results. Lab Results 01/01/21 17:15: WBC 14.1 H, RBC 3.77 L, Hgb 9.4 L, Hct 32.1 L, MCV 85.1, MCH 24.9 L, MCHC 29.3 L, RDW 16.1, Plt Count 290, MPV 7.5, Neut % (Auto) 89.1 H, Lymph % (Auto) 4.4 L, [place] % (Auto) 5.4, Eos % (Auto) 0.9, Baso % (Auto) 0.1, Neut # (Auto) 12.5 H, Lymph # (Auto) 0.6 L, [place] # (Auto) 0.8, Eos # (Auto) 0.1, Baso # (Auto) 0.0, Total Counted 100, Neutrophils % (Manual) 87 H, Lymphocytes % (Manual) 5 L, Monocytes % (Manual) 5, Eosinophils % (Manual) 3, Platelet Estimate Normal, RBC Morphology Normal 01/01/21 17:15: Sodium 138, Potassium 4.2, Chloride 99, Carbon Dioxide 30, Anion Gap 13.2, BUN 48 H, Creatinine 2.10 H, Estimated Creat Clear 30, Estimated GFR 31 L, Est GFR ( Amer) 37 L, Glucose 267 H, Calcium 8.6, Total Bilirubin 0.9, AST 21, ALT 13, Alkaline Phosphatase 92, Troponin I < 0.01, NT-Pro-B Natriuret Pep 516 H, Total Protein 7.0, Albumin 3.7, Globulin 3.3 H, Albumin/Globulin Ratio 1.1 01/01/21 17:15: Lactate 3.2 H Result diagrams: 01/01/21 17:15 01/01/21 17:15 Orders (Tests/Meds): ED MEDICATIONS Generic Name Dose Route Start Last Admin Trade Name Freq PRN Reason Stop Dose Admin Piperacillin Sod/Tazobactam 100 mls @ 200 mls/hr 01/01/21 17:30 01/01/21 18:19 Sod 4.5 gm/ Sodium Chloride IV 01/15/21 17:29 200 mls/hr Q8H SHAE Administration Protocol Vancomycin HCl 2,000 mg/ 250 mls @ 125 mls/hr 01/01/21 17:30 Sodium Chloride IV 01/15/21 17:29 Q24H SHAE Protocol Sodium Chloride 1,000 mls @ 999 mls/hr 01/01/21 18:30 Sod Chlor 0.9% 1000ml Bag IV 01/01/21 19:30 .Q1H1M SHEA Discontinued Medications Generic Name Dose Route Start Last Admin Trade Name Freq PRN Reason Stop Dose Admin Acetaminophen 1,000 mg 01/01/21 17:24 01/01/21 18:19 Acetaminophen 500mg Tab PO 01/01/21 17:25 1,000 mg ONCE ONE Administration Ketorolac Tromethamine 15 mg 01/01/21 17:24 01/01/21 18:19 Ketorolac 30mg/Ml Vial IV 01/01/21 17:25 15 mg ONCE ONE Administration ORDERS Category Date Time Status Troponin I Q3H Lab 01/01/21 20:30 Ordered Troponin I Q3H Lab 01/01/21 23:30 Ordered Blood Culture Stat Micro 01/01/21 17:15 Received ECG Request by /Nse Stat Y 01/01/21 17:19 Ordered Medical Decision Narrative: Patient arrives tachycardic, febrile with oxygen saturations around 90%. Has wounds in his bilateral lower extremities have been chronic and are followed by wound care. Differential includes sepsis secondary to cellulitis versus pneumonia versus CHF exacerbation. Sepsis work-up obtained with blood cultures
[2021-01-01 17:28] LABS: Basophils % 0.1 % (0.1-2.0); Eosinophils # 0.1 K/mm3 (0.0-0.4); Eosinophils % 0.9 % (0.1-12.0); Hematocrit 32.1 % (42.0-52.0); Hemoglobin 9.4 g/dL (14.1-18.0); Lymphocytes # 0.6 K/mm3 (0.7-4.5); Lymphocytes % 4.4 % (10-50); Mean Corpuscular HGB Conc 29.3 g/dL (31.8-35.4); Mean Corpuscular Hemoglobin 24.9 pg (27.0-31.2); Mean Corpuscular Volume 85.1 fl (80-94); Mean Platelet Volume 7.5 fl (7.4-10.4); Monocytes # 0.8 K/mm3 (0.1-1.0); Monocytes % 5.4 % (1.7-9.3); Neutrophils # 12.5 K/mm3 (1.8-7.8); Neutrophils % 89.1 % (37.0-80.0); Platelet Count 290 K/mm3 (142-424); Red Blood Count 3.77 M/mm3 (4.60-6.20); Red Cell Distribution Width 16.1 % (11.5-17.5); White Blood Count 14.1 K/mm3 (4.8-10.8)
[2021-01-01 17:29] LABS: MANUAL DIFFERENTIAL MANUAL DIFFERENTIAL (MANUAL DIFF)
[2021-01-01 17:43] LABS: Lactic Acid 3.2 mmol/L (0.7-2.1)
[2021-01-01 17:50] LABS: Chloride 99 mmol/L (98-107); Potassium 4.2 mmoL/L (3.5-5.1); Sodium 138 mmol/L (136-145)
[2021-01-01 17:53] LABS: Alanine Aminotransferase 13 U/L (12-78); Albumin Level 3.7 g/dl (3.5-5.0); Albumin/Globulin Ratio 1.1 (1.1-1.8); Alkaline Phosphatase 92 U/L (38-126); Anion Gap 13.2 mEq/L (5-15); Aspartate Amino Transferase 21 U/L (17-59); Bilirubin,Total 0.9 mg/dl (0.2-1.3); Blood Urea Nitrogen 48 mg/dl (9-20); Carbon Dioxide 30 mmol/L (22.0-30.0); Creatinine Clearance Estimated 30 mL/min (50-200); Estimated Glomerular Filt Rate 31 ml/min (>60); GFR (African American) 37 ML/MIN (>60); Globulin 3.3 g/dL (1.3-3.2)
[2021-01-01 17:54] LABS: Calcium 8.6 mg/dl (8.4-10.2); Glucose 267 mg/dl (74-100)
[2021-01-01 18:02] LABS: NT Pro Brain Natriuretic Pep. 516 pg/mL (0-450)
[2021-01-01 18:07] LABS: Troponin I < 0.01 ng/ml (0.00-0.034)
--- NOTE | 2021-01-01 18:10 | PC.NURSE ---
DR MORALES PAGED FOR DR BUTLER FOR POSSIBLE ADMISSION
[2021-01-01 18:25] LABS: Eosinophils % 3 % (0-3); Lymphocytes % 5 % (10-50); Monocytes % 5 % (2-9); Neutrophils % 87 % (42-76); Platelet Estimate Normal; RBC Morphology Normal; Total Cells Counted 100
--- NOTE | 2021-01-01 18:50 | PC.NURSE ---
Patient reports his medications have not changed since last admit and denies he does not have a medication list to compare
--- NOTE | 2021-01-01 18:56 | PC.NURSE ---
bed assignment requested, room 219-stepdown. all staff notified
[2021-01-01 19:16] LABS: Coronavirus 19, PCR Not Detected (NotDetected); Influenza A, PCR Not Detected (NotDetected); Influenza B, PCR Not Detected (NotDetected)
--- NOTE | 2021-01-01 20:03 | PC.NURSE ---
Spoke with Duy at [facility] for Vanc dose. He confirms 2000mg IV Q24H
[2021-01-01 20:51] LABS: POC Glucose,Bedside 298 (70-110)
--- NOTE | 2021-01-01 21:10 | PC.NURSE ---
Report called to MICHELLE Case at this time
[2021-01-01 21:22] LABS: Troponin I 0.02 ng/ml (0.00-0.034)
[2021-01-01 21:26] LABS: Reflex Lactic Add Lactic Reflex
--- NOTE | 2021-01-01 21:29 | PC.NURSE ---
pt arrived via wheelchair to the floor at this time
[2021-01-01 21:45] LABS: Lactic Acid Follow Up (RFLX 1) 1.3 mmol/L (0.7-2.1)
[2021-01-01 22:27] LABS: POC Glucose,Bedside 285 (70-110)
[2021-01-01 23:21] LABS: Troponin I 0.02 ng/ml (0.00-0.034)
[2021-01-02] VITALS (24 sets, daily range): BP systolic 90–161; BP diastolic 42–107; PULSE 77–106; RESP 12–29; TEMP 36.6–37.1; O2SAT 90–99
--- NOTE | 2021-01-02 02:50 | PC.NURSE ---
Persistent hypotension noted with map <65 and bp trending down; pt. asymptomatic. Notified MD (0230) of bp's, lactic values, pna admission and h/o chf. Pt. received 1L IVF bolus in ED and 300 ml of fluid since admission. New order: Levophed gtt iv start now; titrate for SBP >90 and MAP >65. Began gtt at 0245.
--- NOTE | 2021-01-02 03:52 | PC.WOUNDNOTE ---
Pt. has h/o cellulitis. Dry +3 pitting edematous ble. No drainage or bleeding noted. NOTE: pt. did not want pants or sock to be removed, even for assessment purposes.
--- NOTE | 2021-01-02 04:51 | PC.NURSE ---
0245- levophed gtt 10 mcg/min 0400- bp 150/76; titrated gtt to 4 mcg/min 0430- bp 133/64 0500- bp 140/65; titrated gtt to 2 mcg/min
[2021-01-02 05:29] LABS: POC Glucose,Bedside 276 (70-110)
[2021-01-02 05:51] LABS: Basophils % 0.2 % (0.1-2.0); Eosinophils # 0.1 K/mm3 (0.0-0.4); Eosinophils % 0.6 % (0.1-12.0); Hematocrit 29.6 % (42.0-52.0); Hemoglobin 8.5 g/dL (14.1-18.0); Lymphocytes # 0.8 K/mm3 (0.7-4.5); Lymphocytes % 6.9 % (10-50); Mean Corpuscular HGB Conc 28.8 g/dL (31.8-35.4); Mean Corpuscular Hemoglobin 24.5 pg (27.0-31.2); Mean Corpuscular Volume 85.1 fl (80-94); Monocytes # 0.8 K/mm3 (0.1-1.0); Monocytes % 6.9 % (1.7-9.3); Neutrophils # 9.9 K/mm3 (1.8-7.8); Neutrophils % 85.4 % (37.0-80.0); Platelet Count 268 K/mm3 (142-424); Red Blood Count 3.47 M/mm3 (4.60-6.20); White Blood Count 11.6 K/mm3 (4.8-10.8)
[2021-01-02 05:55] LABS: MANUAL DIFFERENTIAL MANUAL DIFFERENTIAL (MANUAL DIFF)
--- NOTE | 2021-01-02 06:50 | PC.NURSE ---
paused levophed gtt as sbp >120 at this time.
[2021-01-02 07:06] LABS: Chloride 100 mmol/L (98-107); Potassium 3.8 mmoL/L (3.5-5.1); Sodium 137 mmol/L (136-145)
[2021-01-02 07:09] LABS: Anion Gap 11.8 mEq/L (5-15); Blood Urea Nitrogen 48 mg/dl (9-20); Calcium 8.4 mg/dl (8.4-10.2); Carbon Dioxide 29 mmol/L (22.0-30.0); Creatinine Clearance Estimated 25 mL/min (50-200); Estimated Glomerular Filt Rate 26 ml/min (>60); GFR (African American) 32 ML/MIN (>60); Glucose 254 mg/dl (74-100)
--- NOTE | 2021-01-02 07:26 | HMH.PHAVTE ---
[facility] Pharmacy VTE Monitoring - Patient Demographics Admission date: 01/02/21 Report Date: 01/02/21 Time: 07:26 Allergies/Adverse Reactions: Patient Allergies morphine Allergy (Severe, Verified 12/04/20 13:53) Swelling of Lip/Tongue/Throat Height: 1.73 m Weight: 124.851 kg Patient Problems: Current Active Problems Community acquired pneumonia (Acute) Severe sepsis (Acute) - VTE Risk Labs: VTE Related Lab Results Hgb 8.5 g/dL (14.1-18.0) L 01/02/21 05:22 Hct 29.6 % (42.0-52.0) L 01/02/21 05:22 Plt Count 268 K/mm3 (142-424) 01/02/21 05:22 BUN 48 mg/dl (9-20) H 01/02/21 05:22 Creatinine 2.40 mg/dl (0.66-1.25) H 01/02/21 05:22 Estimated Creat Clear 25 mL/min (50-200) 01/02/21 05:22 Was VTE Risk Assessment Performed: Yes VTE Score: 7 VTE Risk Level: Moderate Risk Clinical Trial Participant: No - Prophylaxis VTE Prophylaxis Ordered?: Yes Types of VTE Prophylaxis: TEDS Knee High, Pharmacological Pharmacologic Type: Enoxaparin
--- NOTE | 2021-01-02 08:18 | HMH.PHAINT ---
home medication list verified using list from clinic pharmacy
--- NOTE | 2021-01-02 08:25 | HMH.HP ---
*Admission Date: 01/02/21 *Chief complaint: Chills/fever *History of present illness: 80-year-old white male with chronic/recurrent lymphedema, chronic/recurring lower extremity cellulitis, extremely inadequate personal hygiene, chronic CHF and COPD with morbid obesity and poor self-care activities who came to the emergency department with fever and chills and reports that his legs were red and swollen and more painful than normal. Met sepsis criteria with fever, elevated white count and source of infection, admitted to hospital with broad-spectrum antibiotics, IV fluids and supportive care. This morning he states that he feels better and would like to go home. [facility] History I have reviewed the patient's past medical history: Yes Medical History: Reports:: Asthma, Atrial Fibrillation, Cardiomyopathy, Congestive Heart Failure, Congenital Heart Disease, Coronary Artery Disease, Diabetes Mellitus Type 2, Gastroesophageal Reflux Disease(GERD), Hyperlipidemia, Hypertension, Internal Pacemaker, Lung Disease, MRSA, Myocardial Infarction, Palpitations, Renal Disease, Renal Insufficiency, Seizures Denies:: Cancer, Diabetes Mellitus Type 1 *Have you ever received a pneumonia vaccine?: Yes *Have you received a flu vaccine this season?: No Other Medical History: Reports: Anemia, Arthritis, Hypothyroidism, Other. Denies: Blood Transfusion Reaction Laterality Cases: Right: Total Hip Replacement Other Surgeries: Yes: Appendectomy, Cardiac Catheterization, Colonoscopy, Coronary Stent, EGD, Pacemaker, Other Amputation: No Fractures: No - *Social History Smoking Status: Former smoker Tobacco Type: cigarettes # Packs/Day (cigarettes): 1 Alcohol Intake: never Alcohol Intake Frequency:: other Substance Use Type: denies use *Occupational Status:: disabled Housing: house Household Members: spouse *Travel in the last 8 weeks: None Family Hx:: Unable to obtain Review of Systems - Review of Systems Review of systems:: pertinent systems reviewed and negative unless documented below Meds Home Medications Medication Instructions Recorded Confirmed Type Aspirin [Aspirin 81mg EC Tab] 81 mg PO DAILY 30 Days #30 tab 10/20/20 01/01/21 Rx Atorvastatin Calcium [Lipitor 40mg 40 mg PO HS 30 Days #30 tab 10/20/20 01/01/21 Rx Tab] Ferrous Sulfate [Iron] 325 mg PO DAILY 30 Days #30 tab 10/20/20 01/01/21 Rx Insulin NPH Hum/Reg Insulin Hm 40 unit SQ TID 30 Days #5 vial 10/20/20 01/01/21 Rx [Novolin 70-30 100 Unit/ml Vial] Montelukast Sodium [Singulair 10mg 10 mg PO HS 30 Days #30 tab 10/20/20 01/01/21 Rx tablet] Omeprazole [Omeprazole 20mg 20 mg PO DAILY 30 Days #30 cap 10/20/20 01/01/21 Rx Capsule] allopurinoL [Allopurinol 300mg 300 mg PO DAILY 30 Days #30 tab 10/20/20 01/01/21 Rx tablet] lisinopriL [Lisinopril] 40 mg PO DAILY 30 Days #30 tab 10/20/20 01/01/21 Rx oxycodone 30 mg tablet 30 mg PO QIDP PRN 10/24/20 01/02/21 History Bumetanide [Bumex 1mg tablet] 2 mg PO DAILY 01/01/21 01/01/21 History Gabapentin [Neurontin 300mg 300 mg PO TID 01/01/21 History capsule] Metoprolol Succinate [Metoprolol 100 mg PO DAILY 01/01/21 History Succinate 100mg Tablet*] Gabapentin [Neurontin 800mg Tab] 800 mg PO TID 01/02/21 01/02/21 History Loratadine [Claritin 10mg 10 mg PO DAILY 01/02/21 01/02/21 History Tablet] Metoprolol Tartrate [Lopressor 100 100 mg PO DAILY 01/02/21 01/02/21 History mg Tablets] Allergies Allergy/AdvReac Type Severity Reaction Status Date / Time morphine Allergy Severe Swelling Verified 12/04/20 13:53 of Lip/Tongue/Throat Exam Vital signs and Labs for Last 24 Hours: Temp Pulse Resp BP Pulse Ox 98.4 F 106 H 14 161/95 H 97 01/02/21 08:00 01/02/21 08:00 01/02/21 08:00 01/02/21 08:00 01/02/21 08:00 Laboratory Results - last 24 hr 01/01/21 15:56: SARS-CoV-2 (PCR) Not detected, Influenza A Untype (PCR) Not detected, Influenza Type B (PCR) Not detected
[2021-01-02 08:39] LABS: Eosinophils % 1 % (0-3); Lymphocytes % 6 % (10-50); Monocytes % 4 % (2-9); Neutrophils % 89 % (42-76); Nucleated Red Blood Cells 2; Platelet Estimate Normal; Total Cells Counted 100
[2021-01-02 08:40] LABS: Anisocytosis 1+; Hypochromasia 3+; Microcytosis 1+
--- NOTE | 2021-01-02 08:58 | HMH.PHACONS ---
- Pharmacy Consult Date: 01/02/21 Time: 08:58 Referring provider: DR. CRABTREE Reason for Consult:: VANCOMYCIN DOSING Allergies and ADEs:: Allergies Allergy/AdvReac Type Severity Reaction Status Date / Time morphine Allergy Severe Swelling Verified 12/04/20 13:53 of Lip/Tongue/Throat Home Medications:: Home Medications Medication Instructions Recorded Confirmed Type Aspirin [Aspirin 81mg EC Tab] 81 mg PO DAILY 30 Days #30 tab 10/20/20 01/01/21 Rx Atorvastatin Calcium [Lipitor 40mg 40 mg PO HS 30 Days #30 tab 10/20/20 01/01/21 Rx Tab] Ferrous Sulfate [Iron] 325 mg PO DAILY 30 Days #30 tab 10/20/20 01/01/21 Rx Insulin NPH Hum/Reg Insulin Hm 40 unit SQ TID 30 Days #5 vial 10/20/20 01/01/21 Rx [Novolin 70-30 100 Unit/ml Vial] Montelukast Sodium [Singulair 10mg 10 mg PO HS 30 Days #30 tab 10/20/20 01/01/21 Rx tablet] Omeprazole [Omeprazole 20mg 20 mg PO DAILY 30 Days #30 cap 10/20/20 01/01/21 Rx Capsule] allopurinoL [Allopurinol 300mg 300 mg PO DAILY 30 Days #30 tab 10/20/20 01/01/21 Rx tablet] lisinopriL [Lisinopril] 40 mg PO DAILY 30 Days #30 tab 10/20/20 01/01/21 Rx oxycodone 30 mg tablet 30 mg PO QIDP PRN 10/24/20 01/02/21 History Bumetanide [Bumex 1mg tablet] 2 mg PO DAILY 01/01/21 01/01/21 History Gabapentin [Neurontin 300mg 300 mg PO TID 01/01/21 History capsule] Metoprolol Succinate [Metoprolol 100 mg PO DAILY 01/01/21 History Succinate 100mg Tablet*] Gabapentin [Neurontin 800mg Tab] 800 mg PO TID 01/02/21 01/02/21 History Loratadine [Claritin 10mg 10 mg PO DAILY 01/02/21 01/02/21 History Tablet] Metoprolol Tartrate [Lopressor 100 100 mg PO DAILY 01/02/21 01/02/21 History mg Tablets] Height: 1.73 m Weight: 124.851 kg Laboratory Results:: Laboratory Results - last 24 hr 01/01/21 15:56: SARS-CoV-2 (PCR) Not detected, Influenza A Untype (PCR) Not detected, Influenza Type B (PCR) Not detected 01/01/21 17:15: WBC 14.1 H, RBC 3.77 L, Hgb 9.4 L, Hct 32.1 L, MCV 85.1, MCH 24.9 L, MCHC 29.3 L, RDW 16.1, Plt Count 290, MPV 7.5, Neut % (Auto) 89.1 H, Lymph % (Auto) 4.4 L, [place] % (Auto) 5.4, Eos % (Auto) 0.9, Baso % (Auto) 0.1, Neut # (Auto) 12.5 H, Lymph # (Auto) 0.6 L, [place] # (Auto) 0.8, Eos # (Auto) 0.1, Baso # (Auto) 0.0, Total Counted 100, Neutrophils % (Manual) 87 H, Lymphocytes % (Manual) 5 L, Monocytes % (Manual) 5, Eosinophils % (Manual) 3, Platelet Estimate Normal, RBC Morphology Normal 01/01/21 17:15: Sodium 138, Potassium 4.2, Chloride 99, Carbon Dioxide 30, Anion Gap 13.2, BUN 48 H, Creatinine 2.10 H, Estimated Creat Clear 30, Estimated GFR 31 L, Est GFR ( Amer) 37 L, Glucose 267 H, Calcium 8.6, Total Bilirubin 0.9, AST 21, ALT 13, Alkaline Phosphatase 92, Troponin I < 0.01, NT-Pro-B Natriuret Pep 516 H, Total Protein 7.0, Albumin 3.7, Globulin 3.3 H, Albumin/Globulin Ratio 1.1 01/01/21 17:15: Lactate 3.2 H 01/01/21 20:43: Troponin I 0.02 01/01/21 20:43: POC Glucose 298 H 01/01/21 21:22: Lactate 1.3 01/01/21 21:49: POC Glucose 285 H 01/01/21 22:35: Troponin I 0.02 01/02/21 05:08: POC Glucose 276 H 01/02/21 05:22: WBC 11.6 H, RBC 3.47 L, Hgb 8.5 L, Hct 29.6 L, MCV 85.1, MCH 24.5 L, MCHC 28.8 L, RDW 16.0, Plt Count 268, MPV 8.0, Neut % (Auto) 85.4 H, Lymph % (Auto) 6.9 L, [place] % (Auto) 6.9, Eos % (Auto) 0.6, Baso % (Auto) 0.2, Neut # (Auto) 9.9 H, Lymph # (Auto) 0.8, [place] # (Auto) 0.8, Eos # (Auto) 0.1, Baso # (Auto) 0.0, Total Counted 100, Neutrophils % (Manual) 89 H, Lymphocytes % (Manual) 6 L, Monocytes % (Manual) 4, Eosinophils % (Manual) 1, Nucleated RBCs 2, Platelet Estimate Normal, Hypochromasia 3+, Anisocytosis 1+, Microcytosis 1+ 01/02/21 05:22: Sodium 137, Potassium 3.8, Chloride 100, Carbon Dioxide 29, Anion Gap 11.8, BUN 48 H, Creatinine 2.40 H, Estimated Creat Clear 25, Estimated GFR 26 L, Est GFR ( Amer) 32 L, Glucose 254 H, Calcium 8.4 Medical History: Reports:: Asthma, Atrial Fibrillation, Cardiomyopathy, Congestive Heart
--- NOTE | 2021-01-02 10:01 | HMH.PTEV ---
Physical Therapy Evaluation Rehab PT IP Evaluation Start: 01/02/21 07:27 Freq: ONCE Status: Active Protocol: Document 01/02/21 09:56 RICHYJUAN ALBERTO (Rec: 01/02/21 10:00 RCIHYJUAN ALBERTO [id number]) Subjective/History History History This is the initial IP PT evaluation for Johnathon Ellsworth. Mr Ellsworth is well known to therapy due to frequent admissions and current OP treatment in the wound clinic. Pt was admitted for meeting sepsis criteria w/ possible pneumonia and cellulitis Subjective Subjective Pt reports no complaints - does state he had maggots in his wound on the Right leg Rehab PT IP Eval Objective Appearance Patient Behavior Appropriate,Cooperative Patient Orientation Person,Place,Time Difficulty following instructions none Speech Pattern Appropriate Ambulation Patient Able to Ambulate Yes Ambulation Observation IP General Gait Pattern Observation Shuffling Step Ambulation Assistive Device Straight Cane Ambulation Ability Supervision/Stand by Balance Ability to Arise Able, uses arms to help Sitting Balance Steady, safe Standing Balance Steady, wide stance Dynamic Sitting Balance Ability Good Dynamic Standing Balance Ability Fair Transfers Chair Transfer Ability Independent Sit to Stand Chair Transfer Ability Independent ROM All Extremities PT ROM Status WFL MMT All Extremities PT MMT WFL Rehab PT IP prob,goals,plan Problems Date of Evaluation: 01/02/21 PT IP Problems Other Other Pt Problem lymhedema and wound Rehab Potential Rehab Potential Innapropriate for Skilled Therapy Equipment Needs Assistive Devices Straight Cane Discharge Plan PT Discharge Plan Pt at functional baseline - Nsg instructed to apply unna boots after betadyne wash to BLE after Pt has shower today - pt safe to return home once medically stable and returnt to wound clinic for wound and lymphedema management G -code Required Yes Eval Complexity Eval Charge Codes 63367 - Low Complexity G Codes PT Current Status Mobility PT Current Status Modifier CJ-At sonya
--- NOTE | 2021-01-02 11:05 | PC.NURSE ---
Pt refuses to wear O2. States that he does not wear O2 during the day while at home. O2 sat 91% on RA.
--- NOTE | 2021-01-02 11:27 | PC.NURSE ---
attempted to confirm home med list. Pt does not know what he takes or when and reports that Clinic pharmacy makes blister packs for him to take. He reports that he has not taken his home meds for the last couple of days. Pharmacy is aware.
[2021-01-02 11:41] LABS: POC Glucose,Bedside 168 (70-110)
[2021-01-02 17:13] LABS: POC Glucose,Bedside 81 (70-110)
--- NOTE | 2021-01-02 17:55 | PC.NURSE ---
INDUCED WITH 3% SODIUM CHLORIDE. INSTRUCED PT TO COUGH. SPUTUM CUP AT BEDSIDE.
[2021-01-02 22:15] LABS: POC Glucose,Bedside 104 (70-110)
--- NOTE | 2021-01-02 23:02 | PC.NURSE ---
He is A&Ox4. Janett boots placed on legs but having difficulty getting coban to stick-have had multiple staff attempt to get it to stay in place. He denies pain. Denies SOA. He continues RA. He wishes to sit and sleep in his chair. He ambulates independently to the BR; only requiring assistance with IV tubing.
[2021-01-03 03:58] VITALS: BP 103/35; PULSE 103; RESP 20; TEMP 37.1; O2SAT 95
[2021-01-03 05:30] VITALS: BMI 42.3
--- NOTE | 2021-01-03 06:39 | PC.NURSE ---
He wore 2LPM n/c while sleeping but he takes it on and off.
[2021-01-03 06:42] LABS: POC Glucose,Bedside 161 (70-110)
[2021-01-03 06:52] LABS: Basophils % 0.2 % (0.1-2.0); Eosinophils # 0.1 K/mm3 (0.0-0.4); Eosinophils % 1.8 % (0.1-12.0); Hematocrit 28.2 % (42.0-52.0); Hemoglobin 8.7 g/dL (14.1-18.0); Lymphocytes # 0.8 K/mm3 (0.7-4.5); Lymphocytes % 10.8 % (10-50); Mean Corpuscular HGB Conc 30.7 g/dL (31.8-35.4); Mean Corpuscular Hemoglobin 25.2 pg (27.0-31.2); Mean Corpuscular Volume 82.2 fl (80-94); Mean Platelet Volume 9.2 fl (7.4-10.4); Monocytes # 0.3 K/mm3 (0.1-1.0); Monocytes % 4.6 % (1.7-9.3); Neutrophils # 6.1 K/mm3 (1.8-7.8); Neutrophils % 82.7 % (37.0-80.0); Platelet Count 272 K/mm3 (142-424); Red Blood Count 3.43 M/mm3 (4.60-6.20); Red Cell Distribution Width 16.4 % (11.5-17.5); White Blood Count 7.4 K/mm3 (4.8-10.8)
[2021-01-03 06:59] LABS: Alanine Aminotransferase 12 U/L (12-78); Alkaline Phosphatase 72 U/L (38-126); Anion Gap 7.9 mEq/L (5-15); Aspartate Amino Transferase 27 U/L (17-59); Bilirubin,Total 0.5 mg/dl (0.2-1.3); Blood Urea Nitrogen 40 mg/dl (9-20); Calcium 8.9 mg/dl (8.4-10.2); Carbon Dioxide 30 mmol/L (22.0-30.0); Chloride 101 mmol/L (98-107); Creatinine Clearance Estimated 28 mL/min (50-200); Estimated Glomerular Filt Rate 31 ml/min (>60); GFR (African American) 37 ML/MIN (>60); Globulin 2.9 g/dL (1.3-3.2); Glucose 148 mg/dl (74-100); Potassium 3.9 mmoL/L (3.5-5.1); Sodium 135 mmol/L (136-145); Total Protein,Serum 5.9 g/dl (6.3-8.2)
[2021-01-03 07:43] VITALS: BP 115/50; PULSE 96; RESP 18; TEMP 37.1; O2SAT 92
--- NOTE | 2021-01-03 08:23 | HMH.DCSUM ---
General - General Admission date:: 01/01/21 Discharge date: 01/03/21 HPI HPI: 80-year-old white male with chronic/recurrent lymphedema, chronic/recurring lower extremity cellulitis, extremely inadequate personal hygiene, chronic CHF and COPD with morbid obesity and poor self-care activities who came to the emergency department with fever and chills and reports that his legs were red and swollen and more painful than normal. Met sepsis criteria with fever, elevated white count and source of infection, admitted to hospital with broad-spectrum antibiotics, IV fluids and supportive care. This morning he states that he feels better and would like to go home. Hospital Course Hospital Course: Patient was admitted as noted, placed on broad-spectrum antibiotics, fluids were given, his creatinine improved overnight to 2.1 which is slightly better than his baseline. He had good urine output. Physical therapy/lymphedema specialist consulted and wrapped his legs with Unna boots and gave him ongoing care activities. This morning looks much better. Eating well, able to ambulate much better with Unna boots and some compression of his lymphedema. He has had no fevers. Vital signs of stabilized, labs have improved and will be discharged home. Cultures are still pending, will keep a close eye on these. We will send him home on Bactrim and clindamycin given the most likely source of his sepsis to be his chronic leg cellulitis. Objective Vital signs: Temp Pulse Resp BP Pulse Ox 98.7 F 96 H 18 115/50 L 92 L 01/03/21 07:43 01/03/21 07:43 01/03/21 07:43 01/03/21 07:43 01/03/21 07:43 no acute distress, morbidly obese Comments: Malodorous of stale urine - *Routine HEENT Exam Head: Present: normocephalic Eye: Present: EOMI, PERRL ENT: Present: mucous membranes moist - *Routine Neck Exam Present: supple - *Routine Respiratory Exam Present: CTA bilaterally - *Routine Cardiovascular Exam Present: RRR - *Routine Abdominal Exam Present: soft, normoactive bowel sounds, obese. Absent: tenderness - *Routine Extremities Exam Present: edema. Absent: cyanosis, clubbing Comments: Legs in Unna boots, distal toes bilaterally with onychomycosis, heavy thickening/keratotic skin on the dorsum of both feet - *Routine Skin Exam Present: warm. Absent: rash - Detailed Eye Exam Eyelids: Bilateral normal inspection Results Labs on day of discharge: Labs from last 24 hours 01/03/21 01/03/21 01/03/21 06:39 06:39 06:34 WBC 7.4 D RBC 3.43 L Hgb 8.7 L Hct 28.2 L MCV 82.2 MCH 25.2 L MCHC 30.7 L RDW 16.4 Plt Count 272 MPV 9.2 Neut % (Auto) 82.7 H Lymph % (Auto) 10.8 [place] % (Auto) 4.6 Eos % (Auto) 1.8 Baso % (Auto) 0.2 Neut # (Auto) 6.1 Lymph # (Auto) 0.8 [place] # (Auto) 0.3 Eos # (Auto) 0.1 Baso # (Auto) 0.0 Total Counted Neutrophils % (Manual) Lymphocytes % (Manual) Monocytes % (Manual) Eosinophils % (Manual) Nucleated RBCs Platelet Estimate Hypochromasia Anisocytosis Microcytosis Sodium 135 L Potassium 3.9 Chloride 101 Carbon Dioxide 30 Anion Gap 7.9 BUN 40 H Creatinine 2.10 H Estimated Creat Clear 28 Estimated GFR 31 L Est GFR ( Amer) 37 L Glucose 148 H POC Glucose 161 H Calcium 8.9 Total Bilirubin 0.5 AST 27 D ALT 12 Alkaline Phosphatase 72 Total Protein 5.9 L Albumin 3.0 L Globulin 2.9 Albumin/Globulin Ratio 1.0 L 01/02/21 01/02/21 01/02/21 21:52 17:02 11:32 WBC RBC Hgb Hct MCV MCH MCHC RDW Plt Count MPV Neut % (Auto) Lymph % (Auto) [place] % (Auto) Eos % (Auto) Baso % (Auto) Neut # (Auto) Lymph # (Auto) [place] # (Auto) Eos # (Auto) Baso # (Auto) Total Counted Neutrophils % (Manual) Lymphocytes % (Manual) Monocytes % (Manual) E
[2021-01-03 09:22] LABS: POC Glucose,Bedside 238 (70-110)
== END 2021-01-03 11:23 | disposition home or self-care (01) | DRG 872 ==
LOC: COUGHCL 17:09 → ER 17:11 → 2ND 19:38
PROVIDERS: Internal Medicine Adolescent Medicine; Admitting Provider Family Medicine; Emergency Provider Emergency Medicine; PCP Internal Medicine Adolescent Medicine; Visit Provider Internal Medicine Adolescent Medicine
DX: A41.9 Sepsis, unspecified organism; I50.22 Chronic systolic (congestive) heart failure; I42.9 Cardiomyopathy, unspecified; Z68.41 Body mass index [BMI] 40.0-44.9, adult; L03.115 Cellulitis of right lower limb; L03.116 Cellulitis of left lower limb; N17.9 Acute kidney failure, unspecified; I13.0 Hypertensive heart and chronic kidney disease with heart failure and stage 1 through stage 4 chronic kidney disease, or unspecified chronic kidney disease; E66.01 Morbid (severe) obesity due to excess calories; Z79.4 Long term (current) use of insulin; I25.10 Atherosclerotic heart disease of native coronary artery without angina pectoris; I48.91 Unspecified atrial fibrillation; E03.9 Hypothyroidism, unspecified; Z95.5 Presence of coronary angioplasty implant and graft; I89.0 Lymphedema, not elsewhere classified; Z79.899 Other long term (current) drug therapy; R65.20 Severe sepsis without septic shock; N18.9 Chronic kidney disease, unspecified; R46.0 Very low level of personal hygiene; Z91.19 Patient's noncompliance with other medical treatment and regimen; M19.90 Unspecified osteoarthritis, unspecified site; I25.2 Old myocardial infarction; Z96.641 Presence of right artificial hip joint; Z87.891 Personal history of nicotine dependence; Z20.822 Contact with and (suspected) exposure to COVID-19; E11.22 Type 2 diabetes mellitus with diabetic chronic kidney disease; D63.1 Anemia in chronic kidney disease; K21.9 Gastro-esophageal reflux disease without esophagitis; J44.9 Chronic obstructive pulmonary disease, unspecified
CPT/HCPCS: 36415; 71045; 80048; 80053; 82962; 83605; 83880; 84484; 85007; 85025; 87040; 87070; 87077; 87205; 93005; 94760; 96365; 96367; 96375; 97161; 99284; 99291; J2543; J3370; U0003

== ENCOUNTER → 2021-01-11 13:52 | Outpatient (CLI) | payer MEDICARE, SELFPAY ==
[2021-01-11 14:33] LABS: Eosinophils # 0.1 K/mm3 (0.0-0.4); Lymphocytes # 0.7 K/mm3 (0.7-4.5)
[2021-01-11 14:48] LABS: Basophils % 0.2 % (0.1-2.0); Eosinophils % 0.9 % (0.1-12.0); Hematocrit 27.6 % (42.0-52.0); Hemoglobin 8.4 g/dL (14.1-18.0); Lymphocytes % 6.4 % (10-50); Mean Corpuscular HGB Conc 30.4 g/dL (31.8-35.4); Mean Corpuscular Hemoglobin 24.9 pg (27.0-31.2); Mean Corpuscular Volume 81.9 fl (80-94); Mean Platelet Volume 7.8 fl (7.4-10.4); Monocytes # 0.3 K/mm3 (0.1-1.0); Monocytes % 3.2 % (1.7-9.3); Neutrophils % 89.3 % (37.0-80.0); Platelet Count 379 K/mm3 (142-424); Red Blood Count 3.37 M/mm3 (4.60-6.20); Red Cell Distribution Width 16.2 % (11.5-17.5)
[2021-01-11 14:49] LABS: MANUAL DIFFERENTIAL MANUAL DIFFERENTIAL (MANUAL DIFF)
[2021-01-11 14:50] LABS: Anisocytosis 1+; Eosinophils % 1 % (0-3); Lymphocytes % 8 % (10-50); Neutrophils % 91 % (42-76); Platelet Estimate Normal; Poikilocytosis 2+; Total Cells Counted 100
[2021-01-11 14:51] LABS: Hypochromasia 3+
[2021-01-11 15:14] LABS: Alanine Aminotransferase 14 U/L (12-78); Albumin Level 3.1 g/dl (3.5-5.0); Albumin/Globulin Ratio 1.1 (1.1-1.8); Alkaline Phosphatase 71 U/L (38-126); Anion Gap 14.5 mEq/L (5-15); Aspartate Amino Transferase 17 U/L (17-59); Bilirubin,Total 0.3 mg/dl (0.2-1.3); Blood Urea Nitrogen 26 mg/dl (9-20); Calcium 8.5 mg/dl (8.4-10.2); Carbon Dioxide 22 mmol/L (22.0-30.0); Chloride 104 mmol/L (98-107); Chol/HDL Ratio 3.5 (1-3.5); Cholesterol 90 mg/dl (140-200); Estimated Glomerular Filt Rate 25 ml/min (>60); GFR (African American) 30 ML/MIN (>60); Globulin 2.7 g/dL (1.3-3.2); Glucose 107 mg/dl (74-100); HDL Cholesterol 26 mg/dl (40-60); Potassium 5.5 mmoL/L (3.5-5.1); Sodium 135 mmol/L (136-145); Total Protein,Serum 5.8 g/dl (6.3-8.2); Triglycerides 95 mg/dl (30-150); VLDL Cholesterol 19 mg/dL (0-40)
[2021-01-11 15:25] LABS: Direct LDL Cholesterol 44.16 mg/dL (100-129)
== END ==
PROVIDERS: Nurse Practitioner Family; Visit Provider Internal Medicine Adolescent Medicine
DX: I11.0 Hypertensive heart disease with heart failure; I50.22 Chronic systolic (congestive) heart failure; E11.22 Type 2 diabetes mellitus with diabetic chronic kidney disease; Z79.4 Long term (current) use of insulin; N18.30 Chronic kidney disease, stage 3 unspecified
CPT/HCPCS: 36415; 80053; 80061; 83036; 85007; 85025

== ENCOUNTER 2021-01-31 09:44 | Observation (INO) | payer MEDICARE, SELFPAY ==
[2021-01-31] VITALS (12 sets, daily range): BP systolic 89–107; BP diastolic 32–77; PULSE 79–117; RESP 16–20; TEMP 36.5–37.1; O2SAT 92–99; BMI 43.3; BMI 43.2
--- NOTE | 2021-01-31 09:53 | HMH.EDGENADL ---
ED Disposition Clinical Impression: PNA (pneumonia) Qualifiers: Aspiration pneumonia type: unspecified Laterality: right Lung location: lower lobe of lung Chronic respiratory failure Qualifiers: Respiratory failure complication: hypoxia Qualified Code(s): J96.11 - Chronic respiratory failure with hypoxia Disposition: Admitted As Inpatient Condition on Discharge: Good Referrals: Nicholas Eaton MD [Primary Care Provider] - Time of Disposition: 11:59 - Critical Care Critical Care Time: No Attestation: On , the high probability of a clinically significant, sudden or life threatening deterioration of the following system(s) required my full and direct attention, intervention and personal management. The time I documented below is in addition to time spent performing reported procedures but includes the following listed in this critical care notation. Medical Decision Making - Medical Records Medical records reviewed: Yes: I reviewed the patient's medical records. - Kehinde Inquiry Pt receiving controlled substance: No Vital Signs: 01/31/21 09:45 01/31/21 09:51 01/31/21 09:52 Temperature 98.1 F Temperature Source Oral Pulse Rate 82 Pulse Rate [Left] 79 Respiratory Rate 18 Blood Pressure [Left Arm] 104/63 L Blood Pressure Mean 53 Blood Pressure Mean [Left Arm] 76 02 Sat by Pulse Oximetry 96 98 Oxygen Delivery Method Nasal Cannula Nasal Cannula Oxygen Flow Rate (LPM) 2 2 01/31/21 10:21 01/31/21 10:30 01/31/21 10:45 Temperature Temperature Source Pulse Rate 90 85 92 H Pulse Rate [Left] Respiratory Rate Blood Pressure [Left Arm] Blood Pressure Mean Blood Pressure Mean [Left Arm] 02 Sat by Pulse Oximetry 99 97 98 Oxygen Delivery Method Nasal Cannula Oxygen Flow Rate (LPM) - Lab Data Lab results reviewed: Yes: I reviewed the patient's lab results. Lab Results 01/31/21 10:00: WBC 15.8 H, RBC 3.90 L, Hgb 9.5 L, Hct 31.5 L, MCV 80.8, MCH 24.2 L, MCHC 30.0 L, RDW 15.7, Plt Count 385, MPV 8.1, Neut % (Auto) 87.4 H, Lymph % (Auto) 7.0 L, [place] % (Auto) 4.3, Eos % (Auto) 1.1, Baso % (Auto) 0.2, Neut # (Auto) 13.8 H, Lymph # (Auto) 1.1, [place] # (Auto) 0.7, Eos # (Auto) 0.2, Baso # (Auto) 0.0, Total Counted 100, Neutrophils % (Manual) 81 H, Band Neutrophils % 1.0, Lymphocytes % (Manual) 14, Monocytes % (Manual) 3, Eosinophils % (Manual) 1, Platelet Estimate Normal, Hypochromasia 1+ 01/31/21 10:00: Sodium 134 L, Potassium 4.2, Chloride 98, Carbon Dioxide 26, Anion Gap 14.2, BUN 47 H, Creatinine 2.20 H, Estimated Creat Clear 27, Estimated GFR 29 L, Est GFR ( Amer) 35 L, Glucose 239 H, Calcium 8.5, Total Bilirubin 0.4, AST 19, ALT 11 L, Alkaline Phosphatase 81, Troponin I 0.01, Total Protein 6.4, Albumin 3.2 L, Globulin 3.2, Albumin/Globulin Ratio 1.0 L 01/31/21 10:00: SARS-CoV-2 (PCR) Not detected, Influenza A Untype (PCR) Not detected, Influenza Type B (PCR) Not detected 01/31/21 10:00: NT-Pro-B Natriuret Pep 841 H Result diagrams: 01/31/21 10:00 01/31/21 10:00 Orders (Tests/Meds): ED MEDICATIONS Generic Name Dose Route Start Last Admin Trade Name Freq PRN Reason Stop Dose Admin Azithromycin 500 mg/ Sodium 250 mls @ 250 mls/hr 01/31/21 11:00 01/31/21 11:34 Chloride IV 02/14/21 10:59 250 mls/hr Q24H SHAE Administration Protocol Ceftriaxone Sodium 1 gm/ 50 mls @ 100 mls/hr 01/31/21 11:00 01/31/21 11:16 Sodium Chloride IV 02/14/21 10:59 100 mls/hr Q24H SHAE Administration Protocol Discontinued Medications Generic Name Dose Route Start Last Admin Trade Name Freq PRN Reason Stop Dose Admin Sodium Chloride 1,000 mls @ 999 mls/hr 01/31/21 10:15 01/31/21 10:14 Sod Chlor 0.9% 1000ml Bag IV 01/31/21 10:45 Not Given .Q1H1M SHAE Sodium Chloride 1,000 mls @ 999 mls/hr 01/31/21 10:30 01/31/21 10:19 Sod Chlor 0.9% 1000ml Bag IV 01/31/21 11:30 999 mls/hr .Q1H1M SHAE Administration - ECG Data Tracin
[2021-01-31 10:10] LABS: Coronavirus 19, PCR Not Detected (NotDetected); Influenza A, PCR Not Detected (NotDetected); Influenza B, PCR Not Detected (NotDetected)
[2021-01-31 10:13] LABS: Basophils % 0.2 % (0.1-2.0); Eosinophils # 0.2 K/mm3 (0.0-0.4); Eosinophils % 1.1 % (0.1-12.0); Hematocrit 31.5 % (42.0-52.0); Hemoglobin 9.5 g/dL (14.1-18.0); Lymphocytes # 1.1 K/mm3 (0.7-4.5); Mean Corpuscular Hemoglobin 24.2 pg (27.0-31.2); Mean Corpuscular Volume 80.8 fl (80-94); Mean Platelet Volume 8.1 fl (7.4-10.4); Monocytes # 0.7 K/mm3 (0.1-1.0); Monocytes % 4.3 % (1.7-9.3); Neutrophils # 13.8 K/mm3 (1.8-7.8); Neutrophils % 87.4 % (37.0-80.0); Platelet Count 385 K/mm3 (142-424); Red Cell Distribution Width 15.7 % (11.5-17.5); White Blood Count 15.8 K/mm3 (4.8-10.8)
[2021-01-31 10:14] LABS: MANUAL DIFFERENTIAL MANUAL DIFFERENTIAL (MANUAL DIFF)
[2021-01-31 10:20] LABS: Chloride 98 mmol/L (98-107); Potassium 4.2 mmoL/L (3.5-5.1); Sodium 134 mmol/L (136-145)
[2021-01-31 10:22] LABS: Blood Urea Nitrogen 47 mg/dl (9-20); Creatinine Clearance Estimated 27 mL/min (50-200); Estimated Glomerular Filt Rate 29 ml/min (>60); GFR (African American) 35 ML/MIN (>60)
[2021-01-31 10:23] LABS: Alanine Aminotransferase 11 U/L (12-78); Albumin Level 3.2 g/dl (3.5-5.0); Alkaline Phosphatase 81 U/L (38-126); Anion Gap 14.2 mEq/L (5-15); Aspartate Amino Transferase 19 U/L (17-59); Bilirubin,Total 0.4 mg/dl (0.2-1.3); Carbon Dioxide 26 mmol/L (22.0-30.0); Globulin 3.2 g/dL (1.3-3.2); Total Protein,Serum 6.4 g/dl (6.3-8.2)
[2021-01-31 10:24] LABS: Calcium 8.5 mg/dl (8.4-10.2); Glucose 239 mg/dl (74-100)
[2021-01-31 10:25] LABS: Eosinophils % 1 % (0-3); Hypochromasia 1+; Lymphocytes % 14 % (10-50); Monocytes % 3 % (2-9); Neutrophils % 81 % (42-76); Platelet Estimate Normal; Total Cells Counted 100
--- NOTE | 2021-01-31 10:33 | XR_ITS ---
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 Borderline cardiomegaly without failure. Subclavian approach The lungs are clear without infiltrates, suspicious nodules, or pleural effusions. Old left-sided rib fractures IMPRESSION: No acute findings. Dictated by: Trace Nair MD 01/31/2021 11:13 Trace Nair MD in [place] 01/31/2021 11:13
--- NOTE | 2021-01-31 10:34 | ECG_ITS ---
APPROVED REPORT Exam: Resting ECG HR:89 bpm ECG Measurements Heart Rate 89 AXES QRSd 82 QRS -23 QT 358 T 7 QTc 435 Conclusion Accelerated Junctional rhythm Low voltage QRS with diffuse ST-T wave changes that are unchanged from prior tracings Abnormal ECG Electronically signed by : Rodrigo Cook MD 02/02/2021 11:40:18
[2021-01-31 10:35] LABS: Troponin I 0.01 ng/ml (0.00-0.034)
--- NOTE | 2021-01-31 10:48 | PC.NURSE ---
Pt to XR via wheelchair at this time.
[2021-01-31 11:14] LABS: NT Pro Brain Natriuretic Pep. 841 pg/mL (0-450)
--- NOTE | 2021-01-31 11:40 | PC.NURSE ---
Dr Joyce em
--- NOTE | 2021-01-31 11:45 | PC.NURSE ---
Dr Cook speaking with Dr Varela
--- NOTE | 2021-01-31 13:02 | PC.NURSE ---
Report given to Tracy.
--- NOTE | 2021-01-31 13:15 | P.CONPHA_ITS ---
[facility] Pharmacy VTE Monitoring - Patient Demographics Admission date: 01/31/21 Report Date: 01/31/21 Time: 13:15 Allergies/Adverse Reactions: Patient Allergies morphine Allergy (Severe, Verified 01/31/21 10:44) Swelling of Lip/Tongue/Throat Height: 1.73 m Weight: 129.274 kg Patient Problems: Current Active Problems Chronic respiratory failure (Acute) Pneumonia (Acute) - VTE Risk Labs: VTE Related Lab Results Hgb 9.5 g/dL (14.1-18.0) L 01/31/21 10:00 Hct 31.5 % (42.0-52.0) L 01/31/21 10:00 Plt Count 385 K/mm3 (142-424) 01/31/21 10:00 BUN 47 mg/dl (9-20) H 01/31/21 10:00 Creatinine 2.20 mg/dl (0.66-1.25) H 01/31/21 10:00 Estimated Creat Clear 27 mL/min (50-200) 01/31/21 10:00 - Prophylaxis VTE Prophylaxis Ordered?: Yes Types of VTE Prophylaxis: IPCS Thigh High, Pharmacological Location of Applied Device: Bilateral Lower Extremeties Pharmacologic Type: Heparin
--- NOTE | 2021-01-31 15:32 | PC.NURSE ---
patient has done well since coming to floor. no complaints beside being cold. up to chair. room air at this time. vitals stable. tolerating a diet
[2021-01-31 17:14] LABS: POC Glucose,Bedside 310 (70-110)
--- NOTE | 2021-01-31 17:42 | HMH.HP ---
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 In the ER his chest x-ray was read as clear, but patient had elevated white count, had crackles in his right middle and lower lung field and clinically appeared to have a pneumonia, chest x-ray appearance not withstanding. Given antibiotics in the ER which made him feel better, oxygen was given and he was admitted to floor for further diagnostic testing and antibiotic therapy. [facility] History I have reviewed the patient's past medical history: Yes Medical History: Reports:: Asthma, Atrial Fibrillation, Cardiomyopathy, Congestive Heart Failure, Congenital Heart Disease, Coronary Artery Disease, Diabetes Mellitus Type 2, Gastroesophageal Reflux Disease(GERD), Hyperlipidemia, Hypertension, Internal Pacemaker, Lung Disease, MRSA, Myocardial Infarction, Palpitations, Renal Disease, Renal Insufficiency, Seizures Denies:: Cancer, Diabetes Mellitus Type 1 *Have you ever received a pneumonia vaccine?: Yes *Have you received a flu vaccine this season?: No Other Medical History: Reports: Anemia, Arthritis, Hypothyroidism, Other. Denies: Blood Transfusion Reaction Laterality Cases: Right: Total Hip Replacement Other Surgeries: Yes: Appendectomy, Cardiac Catheterization, Colonoscopy, Coronary Stent, EGD, Pacemaker, Other Amputation: No Fractures: No - *Social History Smoking Status: Never smoker Tobacco Type: cigarettes # Packs/Day (cigarettes): 1 Alcohol Intake: never Alcohol Intake Frequency:: other Substance Use Type: denies use *Occupational Status:: retired Housing: house Household Members: spouse *Travel in the last 8 weeks: None Family Hx:: No significant family history Review of Systems - Review of Systems Review of systems:: pertinent systems reviewed and negative unless documented below Noted respiratory symptoms. Edema is noted to be improved by patient because of his pump devices. Does have some occasional bleeding around the legs from his severe keratosis. Reports dyspnea with exertion of any type as well as severe orthopnea which is why he chronically keeps his legs down. Otherwise review of systems unremarkable Meds Home Medications Medication Instructions Recorded Confirmed Type Aspirin [Aspirin 81mg EC Tab] 81 mg PO DAILY 30 Days #30 tab 10/20/20 01/31/21 Rx Atorvastatin Calcium [Lipitor 40mg 40 mg PO HS 30 Days #30 tab 10/20/20 01/31/21 Rx Tab] Ferrous Sulfate [Iron] 325 mg PO DAILY 30 Days #30 tab 10/20/20 01/31/21 Rx Insulin NPH Hum/Reg Insulin Hm 40 unit SQ TID 30 Days #5 vial 10/20/20 01/31/21 Rx [Novolin 70-30 100 Unit/ml Vial] Montelukast Sodium [Singulair 10mg 10 mg PO HS 30 Days #30 tab 10/20/20 01/31/21 Rx tablet] Omeprazole [Omeprazole 20mg 20 mg PO DAILY 30 Days #30 cap 10/20/20 01/31/21 Rx Capsule] allopurinoL [Allopurinol 300mg 300 mg PO DAILY 30 Days #30 tab 10/20/20 01/31/21 Rx tablet] Bumetanide [Bumex 1mg tablet] 2 mg PO DAILY 01/01/21 01/31/21 History Loratadine [Claritin 10mg 10 mg PO DAILY 01/02/21 01/31/21 History Tablet] Metoprolol Tartrate [Lopressor 100 100 mg PO DAILY 01/02/21 01/31/21 History mg Tablets] lisinopriL [Lisinopril] 20 mg PO DAILY 01/31/21 01/31/21 History Allergies Allergy/AdvReac Type Severity Reaction Status Date / Time morphine Allergy Severe Swelling Verified 01/31/21 10:44 of Lip/Tongue/Throat Exam Vital signs and Labs for Last 24 Hours: Temp Pulse Resp BP Pulse Ox 97.8 F 117 H 20 95/62 L 92 L 01/31/21 15:31 01/31/21 15:31 01/31/21 15:31 01/31/21 15:31 01/31/21 15:31 Laboratory
--- NOTE | 2021-01-31 18:58 | PC.NURSE ---
Unable to collect sputum from patient, specimen cup at bedside.
[2021-01-31 21:17] LABS: POC Glucose,Bedside 260 (70-110)
[2021-02-01] VITALS (9 sets, daily range): BP systolic 92–143; BP diastolic 49–66; PULSE 75–130; RESP 16–20; TEMP 36.6–37; O2SAT 92–96; BMI 41.5
--- NOTE | 2021-02-01 03:45 | PC.NURSE ---
A&OX4. TOLERATING RA WELL. PT HAS HAD NO C/O PAIN, SOA, OR COUGH. PT HAS BEEN IN CHAIR T/O SHIFT, SLEEPING COMFORTABLY. NO C/O AT THIS TIME, VSS WILL CONTINUE TO MONITOR.
[2021-02-01 05:20] LABS: POC Glucose,Bedside 215 (70-110)
[2021-02-01 06:25] LABS: Basophils % 0.1 % (0.1-2.0); Eosinophils # 0.2 K/mm3 (0.0-0.4); Eosinophils % 1.8 % (0.1-12.0); Hemoglobin 9.5 g/dL (14.1-18.0); Lymphocytes % 7.9 % (10-50); Mean Corpuscular HGB Conc 30.6 g/dL (31.8-35.4); Mean Corpuscular Hemoglobin 24.2 pg (27.0-31.2); Mean Platelet Volume 8.2 fl (7.4-10.4); Monocytes # 0.5 K/mm3 (0.1-1.0); Monocytes % 3.7 % (1.7-9.3); Neutrophils # 11.2 K/mm3 (1.8-7.8); Neutrophils % 86.4 % (37.0-80.0); Platelet Count 372 K/mm3 (142-424); Red Blood Count 3.92 M/mm3 (4.60-6.20); Red Cell Distribution Width 15.6 % (11.5-17.5)
[2021-02-01 06:29] LABS: Chloride 101 mmol/L (98-107); Sodium 134 mmol/L (136-145)
[2021-02-01 06:30] LABS: Potassium 3.9 mmoL/L (3.5-5.1)
[2021-02-01 06:32] LABS: Blood Urea Nitrogen 43 mg/dl (9-20); Creatinine Clearance Estimated 26 mL/min (50-200); Estimated Glomerular Filt Rate 28 ml/min (>60); GFR (African American) 33 ML/MIN (>60)
[2021-02-01 06:33] LABS: Anion Gap 12.9 mEq/L (5-15); Calcium 8.5 mg/dl (8.4-10.2); Carbon Dioxide 24 mmol/L (22.0-30.0); Glucose 218 mg/dl (74-100)
[2021-02-01 06:49] LABS: MANUAL DIFFERENTIAL MANUAL DIFFERENTIAL (MANUAL DIFF)
[2021-02-01 07:58] LABS: Lymphocytes % 10 % (10-50); Monocytes % 6 % (2-9); Neutrophils % 84 % (42-76); Platelet Estimate Normal; RBC Morphology Normal; Total Cells Counted 100
--- NOTE | 2021-02-01 08:02 | HMH.PHACONS ---
- Pharmacy Consult Date: 02/01/21 Time: 08:02 Referring provider: DR. CRABTREE Reason for Consult:: VANCOMYCIN DOSING Allergies and ADEs:: Allergies Allergy/AdvReac Type Severity Reaction Status Date / Time morphine Allergy Severe Swelling Verified 01/31/21 10:44 of Lip/Tongue/Throat Home Medications:: Home Medications Medication Instructions Recorded Confirmed Type Aspirin [Aspirin 81mg EC Tab] 81 mg PO DAILY 30 Days #30 tab 10/20/20 01/31/21 Rx Atorvastatin Calcium [Lipitor 40mg 40 mg PO HS 30 Days #30 tab 10/20/20 01/31/21 Rx Tab] Ferrous Sulfate [Iron] 325 mg PO DAILY 30 Days #30 tab 10/20/20 01/31/21 Rx Insulin NPH Hum/Reg Insulin Hm 40 unit SQ TID 30 Days #5 vial 10/20/20 01/31/21 Rx [Novolin 70-30 100 Unit/ml Vial] Montelukast Sodium [Singulair 10mg 10 mg PO HS 30 Days #30 tab 10/20/20 01/31/21 Rx tablet] Omeprazole [Omeprazole 20mg 20 mg PO DAILY 30 Days #30 cap 10/20/20 01/31/21 Rx Capsule] allopurinoL [Allopurinol 300mg 300 mg PO DAILY 30 Days #30 tab 10/20/20 01/31/21 Rx tablet] Bumetanide [Bumex 1mg tablet] 2 mg PO DAILY 01/01/21 01/31/21 History Loratadine [Claritin 10mg 10 mg PO DAILY 01/02/21 01/31/21 History Tablet] Metoprolol Tartrate [Lopressor 100 100 mg PO DAILY 01/02/21 01/31/21 History mg Tablets] lisinopriL [Lisinopril] 20 mg PO DAILY 01/31/21 01/31/21 History Height: 1.73 m Weight: 124.399 kg Laboratory Results:: Laboratory Results - last 24 hr 01/31/21 10:00: WBC 15.8 H, RBC 3.90 L, Hgb 9.5 L, Hct 31.5 L, MCV 80.8, MCH 24.2 L, MCHC 30.0 L, RDW 15.7, Plt Count 385, MPV 8.1, Neut % (Auto) 87.4 H, Lymph % (Auto) 7.0 L, [place] % (Auto) 4.3, Eos % (Auto) 1.1, Baso % (Auto) 0.2, Neut # (Auto) 13.8 H, Lymph # (Auto) 1.1, [place] # (Auto) 0.7, Eos # (Auto) 0.2, Baso # (Auto) 0.0, Total Counted 100, Neutrophils % (Manual) 81 H, Band Neutrophils % 1.0, Lymphocytes % (Manual) 14, Monocytes % (Manual) 3, Eosinophils % (Manual) 1, Platelet Estimate Normal, Hypochromasia 1+ 01/31/21 10:00: Sodium 134 L, Potassium 4.2, Chloride 98, Carbon Dioxide 26, Anion Gap 14.2, BUN 47 H, Creatinine 2.20 H, Estimated Creat Clear 27, Estimated GFR 29 L, Est GFR ( Amer) 35 L, Glucose 239 H, Calcium 8.5, Total Bilirubin 0.4, AST 19, ALT 11 L, Alkaline Phosphatase 81, Troponin I 0.01, Total Protein 6.4, Albumin 3.2 L, Globulin 3.2, Albumin/Globulin Ratio 1.0 L 01/31/21 10:00: SARS-CoV-2 (PCR) Not detected, Influenza A Untype (PCR) Not detected, Influenza Type B (PCR) Not detected 01/31/21 10:00: NT-Pro-B Natriuret Pep 841 H 01/31/21 11:14: Lactate 2.0 01/31/21 17:04: POC Glucose 310 H* 01/31/21 20:55: POC Glucose 260 H 02/01/21 05:00: POC Glucose 215 H 02/01/21 05:58: WBC 13.0 H, RBC 3.92 L, Hgb 9.5 L, Hct 31.0 L, MCV 79.0 L, MCH 24.2 L, MCHC 30.6 L, RDW 15.6, Plt Count 372, MPV 8.2, Neut % (Auto) 86.4 H, Lymph % (Auto) 7.9 L, [place] % (Auto) 3.7, Eos % (Auto) 1.8, Baso % (Auto) 0.1, Neut # (Auto) 11.2 H, Lymph # (Auto) 1.0, [place] # (Auto) 0.5, Eos # (Auto) 0.2, Baso # (Auto) 0.0, Total Counted 100, Neutrophils % (Manual) 84 H, Lymphocytes % (Manual) 10, Monocytes % (Manual) 6, Platelet Estimate Normal, RBC Morphology Normal 02/01/21 05:58: Sodium 134 L, Potassium 3.9, Chloride 101, Carbon Dioxide 24, Anion Gap 12.9, BUN 43 H, Creatinine 2.30 H, Estimated Creat Clear 26, Estimated GFR 28 L, Est GFR ( Amer) 33 L, Glucose 218 H, Calcium 8.5 Medical History: Reports:: Asthma, Atrial Fibrillation, Cardiomyopathy, Congestive Heart Failure, Congenital Heart Disease, Coronary Artery Disease, Diabetes Mellitus Type 2, Gastroesophageal Reflux Disease(GERD), Hyperlipidemia, Hypertension, Internal Pacemaker, Lung Disease, MRSA, Myocardial Infarction, Palpitations, Renal Disease, Renal Insufficiency, Seizures Denies:: Cancer, Diabetes Mellitus Type 1 Assessment and Plan (1) Chronic respiratory failure Status: Acute Qualifiers: Respiratory failure complication: hypoxia Quali
--- NOTE | 2021-02-01 08:30 | HMH.ACPN2 ---
Internal Medicine - PN: Subj *Date: 02/01/21 *Time: 08:30 Interval history: Overnight patient continues to feel pretty good. As is his habit remained upright in a chair with his legs dangling because when I put my legs up I cannot breathe. Continues to have little bit of bleeding along the lateral aspect of the left leg in amongst the significant, thickened, keratotic cellulitis that is chronically afflicting both of his legs Exam Vital signs and Labs for Last 24 Hours: Temp Pulse Resp BP Pulse Ox 98.6 F 110 H 20 125/64 95 02/01/21 03:11 02/01/21 04:00 02/01/21 03:11 02/01/21 03:11 02/01/21 03:11 Laboratory Results - last 24 hr 01/31/21 10:00: WBC 15.8 H, RBC 3.90 L, Hgb 9.5 L, Hct 31.5 L, MCV 80.8, MCH 24.2 L, MCHC 30.0 L, RDW 15.7, Plt Count 385, MPV 8.1, Neut % (Auto) 87.4 H, Lymph % (Auto) 7.0 L, [place] % (Auto) 4.3, Eos % (Auto) 1.1, Baso % (Auto) 0.2, Neut # (Auto) 13.8 H, Lymph # (Auto) 1.1, [place] # (Auto) 0.7, Eos # (Auto) 0.2, Baso # (Auto) 0.0, Total Counted 100, Neutrophils % (Manual) 81 H, Band Neutrophils % 1.0, Lymphocytes % (Manual) 14, Monocytes % (Manual) 3, Eosinophils % (Manual) 1, Platelet Estimate Normal, Hypochromasia 1+ 01/31/21 10:00: Sodium 134 L, Potassium 4.2, Chloride 98, Carbon Dioxide 26, Anion Gap 14.2, BUN 47 H, Creatinine 2.20 H, Estimated Creat Clear 27, Estimated GFR 29 L, Est GFR ( Amer) 35 L, Glucose 239 H, Calcium 8.5, Total Bilirubin 0.4, AST 19, ALT 11 L, Alkaline Phosphatase 81, Troponin I 0.01, Total Protein 6.4, Albumin 3.2 L, Globulin 3.2, Albumin/Globulin Ratio 1.0 L 01/31/21 10:00: SARS-CoV-2 (PCR) Not detected, Influenza A Untype (PCR) Not detected, Influenza Type B (PCR) Not detected 01/31/21 10:00: NT-Pro-B Natriuret Pep 841 H 01/31/21 11:14: Lactate 2.0 01/31/21 17:04: POC Glucose 310 H* 01/31/21 20:55: POC Glucose 260 H 02/01/21 05:00: POC Glucose 215 H 02/01/21 05:58: WBC 13.0 H, RBC 3.92 L, Hgb 9.5 L, Hct 31.0 L, MCV 79.0 L, MCH 24.2 L, MCHC 30.6 L, RDW 15.6, Plt Count 372, MPV 8.2, Neut % (Auto) 86.4 H, Lymph % (Auto) 7.9 L, [place] % (Auto) 3.7, Eos % (Auto) 1.8, Baso % (Auto) 0.1, Neut # (Auto) 11.2 H, Lymph # (Auto) 1.0, [place] # (Auto) 0.5, Eos # (Auto) 0.2, Baso # (Auto) 0.0, Total Counted 100, Neutrophils % (Manual) 84 H, Lymphocytes % (Manual) 10, Monocytes % (Manual) 6, Platelet Estimate Normal, RBC Morphology Normal 02/01/21 05:58: Sodium 134 L, Potassium 3.9, Chloride 101, Carbon Dioxide 24, Anion Gap 12.9, BUN 43 H, Creatinine 2.30 H, Estimated Creat Clear 26, Estimated GFR 28 L, Est GFR ( Amer) 33 L, Glucose 218 H, Calcium 8.5 I & O for Last 24 hours: Intake & Output 01/29/21 01/30/21 01/31/21 02/01/21 11:59 11:59 11:59 11:59 Intake Total 720 / 720 Output Total 480 / 480 Balance 240 / 240 Weight 285 lb 274 lb 4.039 oz Microbiology Reports for the Last 24 Hours: Microbiology 01/31/21 11:14 Blood Blood Culture - Preliminary 01/31/21 11:14 Blood Blood Culture - Preliminary Narrative: Alert, pleasant. Talkative. Rhonchi and crackles in the right lower lung field as before but slightly improved than yesterday evening's exam. Heart rate regular. Abdomen obese, soft. Neurologically intact, globally weak. ENT exam clear. Legs really unchanged from yesterday. Thickened, sclerotic, keratotic lymphedema noted with chronic odor and bleeding from the lateral aspect of the right leg. Assessment and Plan (1) Chronic respiratory failure Status: Acute Qualifiers: Respiratory failure complication: hypoxia Qualified Code(s): J96.11 - Chronic respiratory failure with hypoxia Category: Medical Code(s): J96.10 - Chronic respiratory failure, unspecified whether with hypoxia or hypercapnia (2) Pneumonia Status: Acute Qualifiers: Aspiration pneumonia type: unspecified Laterality: right Lung location: lower lobe of lung Category: Medical Code(s): J18.9 - Pneumonia, unspecified organism
--- NOTE | 2021-02-01 11:11 | HMH.PHAINT ---
MEDICATION RECONCILIATION COMPLETE USING LIST FROM MOST RECENT DISCHARGE AND EXTERNAL PHARMACY FILL HISTORY.
--- NOTE | 2021-02-01 11:44 | HMH.PTWOUND ---
Rehab Inpt Wound Evaluation Rehab IP Wound Evaluation Start: 02/01/21 11:39 Freq: Status: Active Protocol: Document 02/01/21 11:39 PHOBOLIVAR (Rec: 02/01/21 11:43 PHORNE [id number]) Rehab PT Wound Assessment Subjective Subjective 80 yowm adm to [facility] with CAP, multiple co-morbidities including LE lymphedema with open wounds. Long hx of chronic wounds to B ОЛЬГА, R worse than L. nsg reports maggots in wound bed. 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 Follow with Unna Boot wrap to [facility] for topical dressing. Eval Complexity Eval Charge Codes 56857 - High Complexity PHYSICIAN CERTIFICATION: I certify the specified therapy services for Johnathon Ellsworth are required, authorized, and reviewed every 30 days.
[2021-02-01 12:30] LABS: POC Glucose,Bedside 287 (70-110)
[2021-02-01 17:29] LABS: POC Glucose,Bedside 267 (70-110)
--- NOTE | 2021-02-01 17:49 | PC.NURSE ---
Pt is alert and oriented x4. He remains on RA w/O2 sats in the 90's. Maggots were found on patients right leg and on the floor in front of his chair this morning. Leg was flushed with peroxide by PT and myself cleaning many of the maggots out. PT then washed his leg with betadine and wrapped it with an unna boot. Pt tolerated well. Glucose was elevated between 250-300 during checks. Covered per SSI. He is currently resting in his chair watching TV.
[2021-02-01 22:00] LABS: POC Glucose,Bedside 222 (70-110)
[2021-02-02] VITALS (9 sets, daily range): BP systolic 95–148; BP diastolic 50–71; PULSE 80–147; RESP 18–20; TEMP 36.4–37.2; O2SAT 93–95; BMI 41.4
[2021-02-02 05:19] LABS: POC Glucose,Bedside 219 (70-110)
--- NOTE | 2021-02-02 05:39 | PC.NURSE ---
Patient is alert and oriented x4. Patient has slept in the chair all night. Patient's Unna Boot is clean, dry and intact on the right leg. Patient's left leg has keratosis and lymphedema noted. Vital signs are stable, call light within reach, will continue to monitor.
[2021-02-02 06:13] LABS: Basophils % 0.2 % (0.1-2.0); Eosinophils # 0.2 K/mm3 (0.0-0.4); Hematocrit 30.3 % (42.0-52.0); Hemoglobin 9.2 g/dL (14.1-18.0); Lymphocytes # 0.9 K/mm3 (0.7-4.5); Lymphocytes % 7.8 % (10-50); Mean Corpuscular HGB Conc 30.3 g/dL (31.8-35.4); Mean Corpuscular Hemoglobin 24.2 pg (27.0-31.2); Mean Corpuscular Volume 79.7 fl (80-94); Mean Platelet Volume 8.6 fl (7.4-10.4); Monocytes # 0.4 K/mm3 (0.1-1.0); Monocytes % 3.5 % (1.7-9.3); Neutrophils # 9.9 K/mm3 (1.8-7.8); Neutrophils % 86.5 % (37.0-80.0); Platelet Count 379 K/mm3 (142-424); Red Cell Distribution Width 15.8 % (11.5-17.5); White Blood Count 11.5 K/mm3 (4.8-10.8)
[2021-02-02 06:15] LABS: Chloride 101 mmol/L (98-107); MANUAL DIFFERENTIAL MANUAL DIFFERENTIAL (MANUAL DIFF); Sodium 133 mmol/L (136-145)
[2021-02-02 06:16] LABS: Potassium 3.8 mmoL/L (3.5-5.1)
[2021-02-02 06:18] LABS: Alanine Aminotransferase 18 U/L (12-78); Alkaline Phosphatase 86 U/L (38-126); Aspartate Amino Transferase 31 U/L (17-59); Bilirubin,Total 0.2 mg/dl (0.2-1.3); Blood Urea Nitrogen 39 mg/dl (9-20); Carbon Dioxide 25 mmol/L (22.0-30.0); Creatinine Clearance Estimated 29 mL/min (50-200); Estimated Glomerular Filt Rate 32 ml/min (>60); GFR (African American) 39 ML/MIN (>60)
[2021-02-02 06:19] LABS: Albumin Level 3.1 g/dl (3.5-5.0); Calcium 8.3 mg/dl (8.4-10.2); Glucose 214 mg/dl (74-100); Total Protein,Serum 6.1 g/dl (6.3-8.2)
[2021-02-02 06:38] LABS: Anion Gap 10.8 mEq/L (5-15)
[2021-02-02 06:51] LABS: Anisocytosis 1+; Hypochromasia 2+; Lymphocytes % 10 % (10-50); Microcytosis 1+; Monocytes % 2 % (2-9); Neutrophils % 87 % (42-76); Platelet Estimate Normal; Stomatocytes 1+; Total Cells Counted 100
--- NOTE | 2021-02-02 07:44 | HMH.ACPN2 ---
Internal Medicine - PN: Subj *Date: 02/02/21 *Time: 08:43 Interval history: Mr. Ellsworth states he feels much better this morning, denies fever, nausea, vomiting. Wound care assisting with management of legs. Discussed his positive blood cultures this morning and need for repeat cultures as well as clearance before discharge home. Patient stated understanding but did not seem pleased by this. Stated again how much better he feels. Of note, requiring none of his pain medication at this time Exam Vital signs and Labs for Last 24 Hours: Temp Pulse Resp BP Pulse Ox 97.6 F 90 18 148/63 H 95 02/02/21 04:00 02/02/21 04:00 02/02/21 04:00 02/02/21 04:00 02/02/21 04:00 Laboratory Results - last 24 hr 02/01/21 05:58: Total Counted 100, Neutrophils % (Manual) 84 H, Lymphocytes % (Manual) 10, Monocytes % (Manual) 6, Platelet Estimate Normal, RBC Morphology Normal 02/01/21 11:30: POC Glucose 287 H 02/01/21 16:46: POC Glucose 267 H 02/01/21 20:00: POC Glucose 222 H 02/02/21 05:08: POC Glucose 219 H 02/02/21 05:41: WBC 11.5 H, RBC 3.80 L, Hgb 9.2 L, Hct 30.3 L, MCV 79.7 L, MCH 24.2 L, MCHC 30.3 L, RDW 15.8, Plt Count 379, MPV 8.6, Neut % (Auto) 86.5 H, Lymph % (Auto) 7.8 L, [place] % (Auto) 3.5, Eos % (Auto) 2.0, Baso % (Auto) 0.2, Neut # (Auto) 9.9 H, Lymph # (Auto) 0.9, [place] # (Auto) 0.4, Eos # (Auto) 0.2, Baso # (Auto) 0.0, Total Counted 100, Neutrophils % (Manual) 87 H, Lymphocytes % (Manual) 10, Monocytes % (Manual) 2, Basophils % (Manual) 1.0, Platelet Estimate Normal, Hypochromasia 2+, Anisocytosis 1+, Microcytosis 1+, Stomatocytes 1+ 02/02/21 05:41: Sodium 133 L, Potassium 3.8, Chloride 101, Carbon Dioxide 25, Anion Gap 10.8, BUN 39 H, Creatinine 2.00 H, Estimated Creat Clear 29, Estimated GFR 32 L, Est GFR ( Amer) 39 L, Glucose 214 H, Calcium 8.3 L, Total Bilirubin 0.2, AST 31 D, ALT 18 D, Alkaline Phosphatase 86, Total Protein 6.1 L, Albumin 3.1 L, Globulin 3.0, Albumin/Globulin Ratio 1.0 L I & O for Last 24 hours: Intake & Output 01/30/21 01/31/21 02/01/21 02/02/21 23:59 23:59 23:59 23:59 Intake Total 720 / 720 1800 / 1800 Output Total 480 / 730 250 / 250 Balance 720 / 240 1320 / 1070 -250 / -250 Weight 128.82 kg 124.399 kg 124 kg Microbiology Reports for the Last 24 Hours: Microbiology 01/31/21 11:14 Blood Blood Culture - Preliminary 01/31/21 09:05 Sputum - Expectorated Sputum Gram Stain - Final 01/31/21 11:14 Blood Blood Culture - Preliminary Narrative: Alert, pleasant. Talkative. Lungs more clear with very minimal basal crackles, no rhonchi Heart rate regular. Abdomen obese, soft. Neurologically intact, globally weak. ENT exam clear. Legs really unchanged from yesterday. Thickened, sclerotic, keratotic lymphedema noted with chronic odor and bleeding from the lateral aspect of the right leg. Assessment and Plan (1) Chronic respiratory failure Status: Acute Qualifiers: Respiratory failure complication: hypoxia Qualified Code(s): J96.11 - Chronic respiratory failure with hypoxia Category: Medical Code(s): J96.10 - Chronic respiratory failure, unspecified whether with hypoxia or hypercapnia (2) Pneumonia Status: Acute Qualifiers: Aspiration pneumonia type: unspecified Laterality: right Lung location: lower lobe of lung Category: Medical Code(s): J18.9 - Pneumonia, unspecified organism (3) Sepsis Status: Acute Category: Medical Code(s): A41.9 - Sepsis, unspecified organism (4) Gram-positive bacteremia Status: Acute Category: Medical Code(s): R78.81 - Bacteremia (5) Lymphedema in adult patient Status: Chronic Category: Medical Code(s): I89.0 - Lymphedema, not elsewhere classified (6) Morbid obesity with BMI of 40.0-44.9, adult Status: Chronic Category: Medical Code(s): E66.01 - Morbid (severe) obesity due to excess calories; Z68.41 - Body mass index [BMI]40.0-44.9, adult (7) Type 2 diabetes
--- NOTE | 2021-02-02 09:36 | ECG_ITS ---
APPROVED REPORT Exam: Resting ECG HR:148 bpm ECG Measurements Heart Rate 148 AXES ID 80 P 98 QRSd 84 QRS 30 QT 330 T -86 QTc 518 Conclusion Sinus tachycardia with short ID Low voltage QRS Marked ST abnormality, possible inferior subendocardial injury Abnormal ECG Electronically signed by : Rodrigo Cook MD 02/03/2021 07:57:51
[2021-02-02 11:58] LABS: POC Glucose,Bedside 271 (70-110)
--- NOTE | 2021-02-02 16:27 | PC.NURSE ---
0991 - Received call from product steward @ this time, states pt's HR in 140's. Checked on pt, found to be asymptomatic sitting up in chair. VS obtained, see chart. Stat EKG ordered, RT notified. 0939 - Dr. Eaton notified, one time dose of 5 mg IV lopressor. Pt remained asymptomatic, no complaints voiced. HR did lower @ most to 130. Pt continued to be tachycardic. 1057 - Dr. Eaton notified of perisistent tachycardia, additional order for 5 mg Lopressor IV. 1059 - Prior to admin of IV lopressor, call received from product steward stating pt now NSR in 90's. Verified this and VS obtained.
--- NOTE | 2021-02-02 17:15 | PC.NURSE ---
No acute changes. Remains on room air. No needs voiced this shift. HR remains controlled. NSR w/ occasional pacer spikes noted on tely. Ambulates independently. UNNA boot in place to RLE. Call rivera w/in reach.
[2021-02-02 18:21] LABS: POC Glucose,Bedside 261 (70-110)
[2021-02-02 21:50] LABS: POC Glucose,Bedside 257 (70-110)
[2021-02-03] VITALS (8 sets, daily range): BP systolic 118–141; BP diastolic 49–79; PULSE 73–90; RESP 18–22; TEMP 36.6–36.9; O2SAT 93–98; BMI 41.5
[2021-02-03 01:33] LABS: Vancomycin,Peak 23.6 ug/ml (11-39)
[2021-02-03 05:55] LABS: POC Glucose,Bedside 256 (70-110)
--- NOTE | 2021-02-03 06:23 | PC.NURSE ---
patient rested in chair throughout night. on and off o2 for comfort. room air sats 93%. patient states that he always wears it at night
[2021-02-03 07:15] LABS: Basophils % 0.2 % (0.1-2.0); Eosinophils # 0.2 K/mm3 (0.0-0.4); Eosinophils % 1.6 % (0.1-12.0); Hemoglobin 8.9 g/dL (14.1-18.0); Lymphocytes # 0.9 K/mm3 (0.7-4.5); Lymphocytes % 7.5 % (10-50); Mean Corpuscular HGB Conc 30.1 g/dL (31.8-35.4); Mean Corpuscular Hemoglobin 23.9 pg (27.0-31.2); Mean Corpuscular Volume 79.5 fl (80-94); Monocytes # 0.4 K/mm3 (0.1-1.0); Monocytes % 3.7 % (1.7-9.3); Neutrophils # 10.2 K/mm3 (1.8-7.8); Neutrophils % 87.1 % (37.0-80.0); Platelet Count 343 K/mm3 (142-424); Red Blood Count 3.72 M/mm3 (4.60-6.20); Red Cell Distribution Width 15.8 % (11.5-17.5); White Blood Count 11.7 K/mm3 (4.8-10.8)
[2021-02-03 07:16] LABS: Hematocrit 29.6 % (42.0-52.0); MANUAL DIFFERENTIAL MANUAL DIFFERENTIAL (MANUAL DIFF)
[2021-02-03 07:23] LABS: Hypochromasia 3+; Lymphocytes % 4 % (10-50); Microcytosis 1+; Monocytes % 2 % (2-9); Neutrophils % 85 % (42-76); Platelet Estimate Normal; Total Cells Counted 100
[2021-02-03 07:47] LABS: Chloride 101 mmol/L (98-107); Potassium 3.6 mmoL/L (3.5-5.1); Sodium 133 mmol/L (136-145)
[2021-02-03 07:50] LABS: Anion Gap 10.6 mEq/L (5-15); Blood Urea Nitrogen 35 mg/dl (9-20); Carbon Dioxide 25 mmol/L (22.0-30.0); Creatinine Clearance Estimated 29 mL/min (50-200); Estimated Glomerular Filt Rate 32 ml/min (>60); GFR (African American) 39 ML/MIN (>60)
[2021-02-03 07:51] LABS: Calcium 8.3 mg/dl (8.4-10.2); Glucose 247 mg/dl (74-100)
--- NOTE | 2021-02-03 07:58 | HMH.ACPN2 ---
Internal Medicine - PN: Subj *Date: 02/03/21 *Time: 09:42 Interval history: Patient upright in chair at bedside this morning. Does not appear as though he has gotten up from the chair much in the past 24 hours. Slept in the chair overnight with oxygen, no oxygen at this time. Remains afebrile. Requesting to go home. Discussed pending blood cultures and need to verify clearance before transitioning to definitive antibiotic regimen to get home. Patient states understanding. Denies nausea, chest pain, shortness of breath. No weeping of legs this morning. Exam Vital signs and Labs for Last 24 Hours: Temp Pulse Resp BP Pulse Ox 98.4 F 88 20 134/61 93 L 02/03/21 04:00 02/03/21 04:00 02/03/21 04:00 02/03/21 04:00 02/03/21 04:00 Laboratory Results - last 24 hr 01/31/21 11:14: Lactate 2.0 02/02/21 10:51: POC Glucose 271 H 02/02/21 17:40: POC Glucose 261 H 02/02/21 20:26: POC Glucose 257 H 02/03/21 01:00: Vancomycin Peak 23.6 02/03/21 05:33: POC Glucose 256 H 02/03/21 07:05: WBC 11.7 H, RBC 3.72 L, Hgb 8.9 L, Hct 29.6 L, MCV 79.5 L, MCH 23.9 L, MCHC 30.1 L, RDW 15.8, Plt Count 343, MPV 9.0, Neut % (Auto) 87.1 H, Lymph % (Auto) 7.5 L, [place] % (Auto) 3.7, Eos % (Auto) 1.6, Baso % (Auto) 0.2, Neut # (Auto) 10.2 H, Lymph # (Auto) 0.9, [place] # (Auto) 0.4, Eos # (Auto) 0.2, Baso # (Auto) 0.0, Total Counted 100, Neutrophils % (Manual) 85 H, Band Neutrophils % 9.0 H, Lymphocytes % (Manual) 4 L, Monocytes % (Manual) 2, Platelet Estimate Normal, Hypochromasia 3+, Microcytosis 1+ I & O for Last 24 hours: Intake & Output 01/31/21 02/01/21 02/02/21 02/03/21 23:59 23:59 23:59 23:59 Intake Total 720 / 720 1800 / 1800 1550 / 2030 480 / 480 Output Total 480 / 730 1000 / 1250 470 / 470 Balance 720 / 240 1320 / 1070 550 / 780 10 / 10 Weight 128.82 kg 124.399 kg 124 kg 124.284 kg Microbiology Reports for the Last 24 Hours: Microbiology 01/31/21 09:05 Sputum - Expectorated Sputum Gram Stain - Final 01/31/21 09:05 Sputum - Expectorated Sputum Sputum Culture - Preliminary Serratia marcescens 01/31/21 11:14 Blood Blood Culture - Preliminary Gram Positive Bacilli 01/31/21 11:14 Blood Blood Culture - Preliminary Gram Positive Bacilli Narrative: Alert, pleasant. Talkative. Lungs more clear with very minimal basal crackles, no rhonchi Heart rate regular. Abdomen obese, soft. Neurologically intact, globally weak. ENT exam clear. Legs really unchanged from yesterday. Thickened, sclerotic, keratotic lymphedema noted with chronic odor and bleeding from the lateral aspect of the right leg. Assessment and Plan (1) Chronic respiratory failure Status: Acute Qualifiers: Respiratory failure complication: hypoxia Qualified Code(s): J96.11 - Chronic respiratory failure with hypoxia Category: Medical Code(s): J96.10 - Chronic respiratory failure, unspecified whether with hypoxia or hypercapnia (2) Pneumonia Status: Acute Qualifiers: Aspiration pneumonia type: unspecified Laterality: right Lung location: lower lobe of lung Category: Medical Code(s): J18.9 - Pneumonia, unspecified organism (3) Sepsis Status: Acute Category: Medical Code(s): A41.9 - Sepsis, unspecified organism (4) Gram-positive bacteremia Status: Acute Category: Medical Code(s): R78.81 - Bacteremia (5) Lymphedema in adult patient Status: Chronic Category: Medical Code(s): I89.0 - Lymphedema, not elsewhere classified (6) Morbid obesity with BMI of 40.0-44.9, adult Status: Chronic Category: Medical Code(s): E66.01 - Morbid (severe) obesity due to excess calories; Z68.41 - Body mass index [BMI]40.0-44.9, adult (7) Type 2 diabetes mellitus Status: Chronic Category: Medical Code(s): E11.9 - Type 2 diabetes mellitus without complications - Assessment and plan all Dx Assessment and
--- NOTE | 2021-02-03 09:31 | HMH.PHACONS ---
- Pharmacy Consult Date: 02/03/21 Time: 09:31 Referring provider: DR. CRABTREE Reason for Consult:: VANCOMYCIN DOSE CHANGE Allergies and ADEs:: Allergies Allergy/AdvReac Type Severity Reaction Status Date / Time morphine Allergy Severe Swelling Verified 01/31/21 10:44 of Lip/Tongue/Throat Home Medications:: Home Medications Medication Instructions Recorded Confirmed Type Aspirin [Aspirin 81mg EC Tab] 81 mg PO DAILY 30 Days #30 tab 10/20/20 01/31/21 Rx Atorvastatin Calcium [Lipitor 40mg 40 mg PO HS 30 Days #30 tab 10/20/20 01/31/21 Rx Tab] Ferrous Sulfate [Iron] 325 mg PO DAILY 30 Days #30 tab 10/20/20 01/31/21 Rx Insulin NPH Hum/Reg Insulin Hm 40 unit SQ TID 30 Days #5 vial 10/20/20 01/31/21 Rx [Novolin 70-30 100 Unit/ml Vial] Montelukast Sodium [Singulair 10mg 10 mg PO HS 30 Days #30 tab 10/20/20 01/31/21 Rx tablet] Omeprazole [Omeprazole 20mg 20 mg PO DAILY 30 Days #30 cap 10/20/20 01/31/21 Rx Capsule] allopurinoL [Allopurinol 300mg 300 mg PO DAILY 30 Days #30 tab 10/20/20 01/31/21 Rx tablet] Bumetanide [Bumex 1mg tablet] 2 mg PO DAILY 01/01/21 01/31/21 History Loratadine [Claritin 10mg 10 mg PO DAILY 01/02/21 01/31/21 History Tablet] Metoprolol Tartrate [Lopressor 100 100 mg PO DAILY 01/02/21 01/31/21 History mg Tablets] lisinopriL [Lisinopril] 20 mg PO DAILY 01/31/21 02/01/21 History Gabapentin [Neurontin 800mg Tab] 800 mg PO TID 02/01/21 02/01/21 History Oxycodone HCl 30 mg PO QIDP PRN 02/01/21 02/01/21 History Height: 1.73 m Weight: 124.284 kg Laboratory Results:: Laboratory Results - last 24 hr 01/31/21 11:14: Lactate 2.0 08/06/21 10:51: POC Glucose 271 H 02/02/21 17:40: POC Glucose 261 H 02/02/21 20:26: POC Glucose 257 H 02/03/21 01:00: Vancomycin Peak 23.6 02/03/21 05:33: POC Glucose 256 H 02/03/21 07:05: WBC 11.7 H, RBC 3.72 L, Hgb 8.9 L, Hct 29.6 L, MCV 79.5 L, MCH 23.9 L, MCHC 30.1 L, RDW 15.8, Plt Count 343, MPV 9.0, Neut % (Auto) 87.1 H, Lymph % (Auto) 7.5 L, Harrison % (Auto) 3.7, Eos % (Auto) 1.6, Baso % (Auto) 0.2, Neut # (Auto) 10.2 H, Lymph # (Auto) 0.9, Harrison # (Auto) 0.4, Eos # (Auto) 0.2, Baso # (Auto) 0.0, Total Counted 100, Neutrophils % (Manual) 85 H, Band Neutrophils % 9.0 H, Lymphocytes % (Manual) 4 L, Monocytes % (Manual) 2, Platelet Estimate Normal, Hypochromasia 3+, Microcytosis 1+ 02/03/21 07:05: Sodium 133 L, Potassium 3.6, Chloride 101, Carbon Dioxide 25, Anion Gap 10.6, BUN 35 H, Creatinine 2.00 H, Estimated Creat Clear 29, Estimated GFR 32 L, Est GFR ( Amer) 39 L, Glucose 247 H, Calcium 8.3 L Medical History: Reports:: Asthma, Atrial Fibrillation, Cardiomyopathy, Congestive Heart Failure, Congenital Heart Disease, Coronary Artery Disease, Diabetes Mellitus Type 2, Gastroesophageal Reflux Disease(GERD), Hyperlipidemia, Hypertension, Internal Pacemaker, Lung Disease, MRSA, Myocardial Infarction, Palpitations, Renal Disease, Renal Insufficiency, Seizures Denies:: Cancer, Diabetes Mellitus Type 1 Assessment and Plan (1) Chronic respiratory failure Status: Acute Qualifiers: Respiratory failure complication: hypoxia Qualified Code(s): J96.11 - Chronic respiratory failure with hypoxia Category: Medical Code(s): J96.10 - Chronic respiratory failure, unspecified whether with hypoxia or hypercapnia (2) Pneumonia Status: Acute Qualifiers: Aspiration pneumonia type: unspecified Laterality: right Lung location: lower lobe of lung Category: Medical Code(s): J18.9 - Pneumonia, unspecified organism (3) Sepsis Status: Acute Category: Medical Code(s): A41.9 - Sepsis, unspecified organism (4) Gram-positive bacteremia Status: Acute Category: Medical Code(s): R78.81 - Bacteremia (5) Lymphedema in adult patient Status: Chronic Category: Medical Code(s): I89.0 - Lymphedema, not elsewhere classified (6) Morbid obesity with BMI of 40.0-44.9, adult Status: Chronic Category: Medi
[2021-02-03 11:20] LABS: POC Glucose,Bedside 312 (70-110)
[2021-02-03 16:25] LABS: POC Glucose,Bedside 351 (70-110)
--- NOTE | 2021-02-03 17:19 | PC.NURSE ---
Pt Bryce+Ox4 and has been pleasant t/o shift. Pt has been sitting up in chair t/o shift and has refused to ambulate to bed. Unna boot in place on right leg. Pt uses urinal and ambulates to BR with standby assist. Urine clear and yellow. Pt has c/o diarrhea 1x t/o shift. Pt has tolerated room air well. Call light within reach. Will continue to monitor.
[2021-02-03 21:25] LABS: POC Glucose,Bedside 211 (70-110)
[2021-02-03 21:25] LABS: POC Glucose,Bedside 192 (70-110)
[2021-02-04] VITALS: BP 131/60; PULSE 80; PULSE 86; RESP 16; TEMP 36.6; O2SAT 94
[2021-02-04 04:00] VITALS: BP 131/70; PULSE 89; PULSE 90; RESP 16; TEMP 36.6; O2SAT 97
--- NOTE | 2021-02-04 04:17 | PC.NURSE ---
patient has again refused to get into bed. patient claims that he has a difficult time breathing when lying down. patient has no complaints of pain, nausea or soa. continues to wear o2 on and off at night for comfort.
[2021-02-04 05:31] LABS: POC Glucose,Bedside 216 (70-110)
[2021-02-04 06:00] VITALS: BMI 40.4
[2021-02-04 08:00] VITALS: BP 123/59; PULSE 85; RESP 19; TEMP 36.5; O2SAT 96
--- NOTE | 2021-02-04 08:25 | HMH.DCSUM ---
General - General Admission date:: 01/31/21 Discharge date: 02/04/21 HPI HPI: 80-year-old white male with chronic congestive heart failure, COPD with chronic bronchitis, morbid obesity and severe chronic cellulitis/lymphedema with recurrent infections of his keratotic legs came to the emergency department with shortness of air, difficulty taking a deep breath as well as tachypnea. In the ER his chest x-ray was read as clear, but patient had elevated white count, had crackles in his right middle and lower lung field and clinically appeared to have a pneumonia, chest x-ray appearance not withstanding. Given antibiotics in the ER which made him feel better, oxygen was given and he was admitted to floor for further diagnostic testing and antibiotic therapy. Hospital Course Hospital Course: Patient was admitted, initially placed on standard community-acquired pneumonia set antibiotics given his clinical presentation of pneumonia. However, he quickly grew gram-positive bacilli from both bottles of his initial blood cultures, this turned out to be the species Kytococcus Sedentarius --which is a marine dwelling gram-positive bacilli that is a common cause of chronic foot infection/sloughing and given his significant lymphedema and chronic skin changes this certainly makes sense. Patient's creatinine improved over the next couple of days. He did culture Serratia out of his sputum, pansensitive, and this was also clinically reasonable given his clinical sounds of pneumonia on x-ray. This morning patient's blood cultures on repeat were negative. He had improved, functional status sandhu, continue to sit in a chair with his legs dangling most of the time because of his belief that I cannot breathe with my legs are out. Patient wished to be discharged, and given his microbiologic patterns I believe this is safe to do at this point. Plan will be to do Omnicef 300 twice daily for a full 10 days given the skin issues, I will prescribe clindamycin/and benzoyl peroxide ointment as I believe the source of the sepsis is the probable colonization/chronic infection of his impressively affected legs. From my reading about this particular bacteria and the foot/skin condition this ointment combination seems to be helpful-however patient may or may not use this as he reports that every time I put things on my legs they hurt. Objective Vital signs: Temp Pulse Resp BP Pulse Ox 97.9 F 89 16 131/70 97 02/04/21 04:00 02/04/21 04:00 02/04/21 04:00 02/04/21 04:00 02/04/21 04:00 no acute distress, morbidly obese - *Routine HEENT Exam Head: Present: normocephalic Eye: Present: EOMI, PERRL ENT: Present: mucous membranes moist - *Routine Neck Exam Present: supple - *Routine Respiratory Exam Present: rhonchi Comments: Rhonchi in right middle lung field - *Routine Cardiovascular Exam Present: RRR - *Routine Abdominal Exam Present: soft, normoactive bowel sounds. Absent: tenderness - *Routine Extremities Exam Present: edema. Absent: cyanosis, clubbing Comments: Chronic, sclerotic and foul-smelling lymphedema with keratotic changes throughout both of his legs, maggots that were noted on previous exam have been cleaned by nursing staff. - *Routine Skin Exam Present: warm. Absent: rash - Detailed Eye Exam Eyelids: Bilateral normal inspection Results Labs on day of discharge: Labs from last 24 hours 02/04/21 02/03/21 02/03/21 05:00 20:51 20:39 POC Glucose 216 H 192 H 211 H 02/03/21 02/03/21 16:18 11:12 POC Glucose 351 H* 312 H* Preliminary micro results at discharge 02/02/21 07:44 Blood Culture - Preliminary Blood NO GROWTH AFTER 48 HOURS 02/02/21 07:36 Blood Culture - Preliminary Blood NO GROWTH AFTER 48 HOURS 01/31/21 11:14 Blood Culture - Preliminary Blood Kytococcus sedentarius 01/31/21 11:14 Blood Culture - Preliminary Blood Kytococcus sedentarius
[2021-02-04 09:58] LABS: Vancomycin,Trough 15.7 ug/mL (5.0-10.0)
[2021-02-04 10:52] LABS: POC Glucose,Bedside 251 (70-110)
--- NOTE | 2021-02-04 11:40 | HMH.PHACONS ---
- Pharmacy Consult Date: 02/04/21 Time: 11:40 Referring provider: DR. CRABTREE Reason for Consult:: PNA, BACTEREMIA, WOUND LE Allergies and ADEs:: Allergies Allergy/AdvReac Type Severity Reaction Status Date / Time morphine Allergy Severe Swelling Verified 01/31/21 10:44 of Lip/Tongue/Throat Home Medications:: Home Medications Medication Instructions Recorded Confirmed Type Aspirin [Aspirin 81mg EC Tab] 81 mg PO DAILY 30 Days #30 tab 10/20/20 01/31/21 Rx Atorvastatin Calcium [Lipitor 40mg 40 mg PO HS 30 Days #30 tab 10/20/20 01/31/21 Rx Tab] Ferrous Sulfate [Iron] 325 mg PO DAILY 30 Days #30 tab 10/20/20 01/31/21 Rx Insulin NPH Hum/Reg Insulin Hm 40 unit SQ TID 30 Days #5 vial 10/20/20 01/31/21 Rx [Novolin 70-30 100 Unit/ml Vial] Montelukast Sodium [Singulair 10mg 10 mg PO HS 30 Days #30 tab 10/20/20 01/31/21 Rx tablet] Omeprazole [Omeprazole 20mg 20 mg PO DAILY 30 Days #30 cap 10/20/20 01/31/21 Rx Capsule] allopurinoL [Allopurinol 300mg 300 mg PO DAILY 30 Days #30 tab 10/20/20 01/31/21 Rx tablet] Bumetanide [Bumex 1mg tablet] 2 mg PO DAILY 01/01/21 01/31/21 History Loratadine [Claritin 10mg 10 mg PO DAILY 01/02/21 01/31/21 History Tablet] Metoprolol Tartrate [Lopressor 100 100 mg PO DAILY 01/02/21 01/31/21 History mg Tablets] lisinopriL [Lisinopril] 20 mg PO DAILY 01/31/21 02/01/21 History Gabapentin [Neurontin 800mg Tab] 800 mg PO TID 02/01/21 02/01/21 History Oxycodone HCl 30 mg PO QIDP PRN 02/01/21 02/01/21 History Cefdinir [Omnicef 300mg Capsule] 300 mg PO BID #20 cap 02/04/21 Rx Clindamycin Phos/Benzoyl Perox 50 gm TP TID #1 gel.w.pump 02/04/21 Rx [Benzaclin Gel 50G Pump] Height: 1.73 m Weight: 120.826 kg Laboratory Results:: Laboratory Results - last 24 hr 02/03/21 16:18: POC Glucose 351 H* 02/03/21 20:39: POC Glucose 211 H 02/03/21 20:51: POC Glucose 192 H 02/04/21 05:00: POC Glucose 216 H 02/04/21 08:50: Vancomycin Trough 15.7 H 02/04/21 10:44: POC Glucose 251 H Medical History: Reports:: Asthma, Atrial Fibrillation, Cardiomyopathy, Congestive Heart Failure, Congenital Heart Disease, Coronary Artery Disease, Diabetes Mellitus Type 2, Gastroesophageal Reflux Disease(GERD), Hyperlipidemia, Hypertension, Internal Pacemaker, Lung Disease, MRSA, Myocardial Infarction, Palpitations, Renal Disease, Renal Insufficiency, Seizures Denies:: Cancer, Diabetes Mellitus Type 1 Assessment and Plan (1) Chronic respiratory failure Status: Chronic Qualifiers: Respiratory failure complication: hypoxia Qualified Code(s): J96.11 - Chronic respiratory failure with hypoxia Category: Medical Code(s): J96.10 - Chronic respiratory failure, unspecified whether with hypoxia or hypercapnia (2) Pneumonia Status: Acute Qualifiers: Aspiration pneumonia type: unspecified Laterality: right Lung location: lower lobe of lung Category: Medical Code(s): J18.9 - Pneumonia, unspecified organism (3) Sepsis Status: Acute Category: Medical Code(s): A41.9 - Sepsis, unspecified organism (4) Gram-positive bacteremia Status: Acute Category: Medical Code(s): R78.81 - Bacteremia (5) Lymphedema in adult patient Status: Chronic Category: Medical Code(s): I89.0 - Lymphedema, not elsewhere classified (6) Morbid obesity with BMI of 40.0-44.9, adult Status: Chronic Category: Medical Code(s): E66.01 - Morbid (severe) obesity due to excess calories; Z68.41 - Body mass index [BMI]40.0-44.9, adult (7) Type 2 diabetes mellitus Status: Chronic Category: Medical Code(s): E11.9 - Type 2 diabetes mellitus without complications (8) Bilateral lower leg cellulitis Status: Chronic Category: Medical Code(s): L03.116 - Cellulitis of left lower limb; L03.115 - Cellulitis of right lower limb (9) Infestation by maggots Status: Acute Category: Medical Code(s): B87.9 - Myiasis, unspecified - Assessment and pl
[2021-02-04 12:00] VITALS: BP 92/58; PULSE 90; RESP 18; TEMP 36.3; O2SAT 95
[2021-02-06 16:27] LABS: Acetone <0.010 g/dL (0.000-0.010); Butalbital <1 ug/mL (1-10); Chlordiazepoxide <0.1 ug/mL (0.1-0.9); Diazepam <0.1 ug/mL (0.1-0.9); Ethanol <0.010 g/dL (0.000-0.010); Isopropanol <0.010 g/dL (0.000-0.010); Pentobarbital <1 ug/mL (1-5)
== END 2021-02-04 12:06 | disposition home or self-care (01) ==
LOC: ER 12:00 → 2ND 12:25
PROVIDERS: Admitting Provider Internal Medicine Adolescent Medicine; Emergency Provider Family Medicine; PCP Internal Medicine Adolescent Medicine; Visit Provider Internal Medicine Adolescent Medicine
DX: J18.9 Pneumonia, unspecified organism (principal); Z20.822 Contact with and (suspected) exposure to COVID-19; I50.22 Chronic systolic (congestive) heart failure; E11.9 Type 2 diabetes mellitus without complications; Z79.4 Long term (current) use of insulin; E66.01 Morbid (severe) obesity due to excess calories; Z68.41 Body mass index [BMI] 40.0-44.9, adult; I42.9 Cardiomyopathy, unspecified; I25.10 Atherosclerotic heart disease of native coronary artery without angina pectoris; I11.0 Hypertensive heart disease with heart failure; E03.9 Hypothyroidism, unspecified; Z95.0 Presence of cardiac pacemaker; Z95.5 Presence of coronary angioplasty implant and graft; J96.11 Chronic respiratory failure with hypoxia; L03.116 Cellulitis of left lower limb; L03.115 Cellulitis of right lower limb; R78.81 Bacteremia; I89.0 Lymphedema, not elsewhere classified; Z79.899 Other long term (current) drug therapy; B87.0 Cutaneous myiasis
CPT/HCPCS: G0378; 36415; 71046; 80048; 80053; 80202; 80306; 82962; 83605; 83880; 84484; 85007; 85025; 87040; 87070; 87077; 87186; 87205; 93005; 96365; 96367; 99284; J0456; J3370; U0003

== ENCOUNTER → 2021-06-13 14:52 | Outpatient (CLI) | payer MEDICARE, SELFPAY ==
[2021-06-13 15:41] LABS: Basophils % 0.2 % (0.1-2.0); Eosinophils # 0.2 K/mm3 (0.0-0.4); Eosinophils % 1.9 % (0.1-12.0); Hematocrit 32.1 % (42.0-52.0); Hemoglobin 9.8 g/dL (14.1-18.0); Lymphocytes # 0.8 K/mm3 (0.7-4.5); Lymphocytes % 10.4 % (10-50); Mean Corpuscular HGB Conc 30.4 g/dL (31.8-35.4); Mean Corpuscular Hemoglobin 24.4 pg (27.0-31.2); Mean Corpuscular Volume 80.3 fl (80-94); Mean Platelet Volume 8.7 fl (7.4-10.4); Monocytes # 0.4 K/mm3 (0.1-1.0); Monocytes % 5.4 % (1.7-9.3); Neutrophils # 6.6 K/mm3 (1.8-7.8); Neutrophils % 82.1 % (37.0-80.0); Platelet Count 295 K/mm3 (142-424); Red Blood Count 3.99 M/mm3 (4.60-6.20); Red Cell Distribution Width 15.5 % (11.5-17.5); White Blood Count 8.1 K/mm3 (4.8-10.8)
[2021-06-13 17:07] LABS: Anion Gap 7.3 mEq/L (5-15); Blood Urea Nitrogen 24 mg/dl (9-20); Calcium 8.4 mg/dl (8.4-10.2); Carbon Dioxide 31 mmol/L (22.0-30.0); Chloride 99 mmol/L (98-107); Estimated Glomerular Filt Rate 42 ml/min (>60); GFR (African American) 51 ML/MIN (>60); Glucose 205 mg/dl (74-100); Potassium 4.3 mmoL/L (3.5-5.1); Sodium 133 mmol/L (136-145)
== END ==
PROVIDERS: Visit Provider Surgery
DX: A63.0 Anogenital (venereal) warts (principal); L03.115 Cellulitis of right lower limb; Z01.812 Encounter for preprocedural laboratory examination; Z11.52 Encounter for screening for COVID-19
CPT/HCPCS: 36415; 80048; 85025; C9803; U0003; U0005

== ENCOUNTER 2021-06-15 06:03 | Day surgery (SDC) | payer MEDICARE, SELFPAY ==
[2021-06-15 06:25] VITALS: BP 151/63; PULSE 100; RESP 18; TEMP 36.6; O2SAT 96; BMI 43.2
--- NOTE | 2021-06-15 07:38 | HMH.OPNOTE ---
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 General anesthesia with laryngeal mask airway was achieved. His right groin was prepped and draped in a sterile fashion. After infiltration local anesthetic electrocautery was utilized to transect the condyloma(s) at its(there) wide-based stalk(s). Evaluation did reveal that the large condyloma was in fact two adjacent condylomatous with separate but in close proximity stalks. Each lesion was excised in toto and passed off for pathologic evaluation. Electrocautery was utilized to achieve hemostasis and dry dressings were placed in position. The patient was transferred recovery in stable condition after removal of his laryngeal mask airway. Condition: stable Disposition: PACU Specimens:: Right groin condyloma Complications:: No immediate
[2021-06-15 07:40] VITALS: BP 129/66; PULSE 90; RESP 16; TEMP 36.3; O2SAT 90
[2021-06-15 07:50] VITALS: BP 142/70; PULSE 89; RESP 16; O2SAT 93
--- NOTE | 2021-06-15 07:58 | HMH.ANESCL ---
[facility] Anesthesia Checklist - Structural Data Admitted From: Home Planned Operative Procedure/s: excision neoplasm groin Consent for Planned Operative Procedure(s) Verified: Yes - Additional verifications Anesthesia Reactions: No Hx Blood Transfusions: No Blood Transfusion Reaction: No - Airway Assessment C-Spine Mobility Assessed: Yes TMJ Mobility Assessed: Yes Dentition: Poor Dentition - Neurological Assessment Level of Consciousness: Awake, Alert, Appropriate - Anesthesia Plan Anesthesia Risk discussed: Yes Anesthesia Plan: Verified ASA Class: III Anesthesia Type: MAC [facility] History I have reviewed the patient's past medical history: Yes Medical History: Reports:: Asthma, Atrial Fibrillation, Cardiomyopathy, Congestive Heart Failure, Chronic Obstructive Pulmonary Disease (COPD), Congenital Heart Disease, Coronary Artery Disease, Diabetes Mellitus Type 2, Gastroesophageal Reflux Disease(GERD), Gastrointestinal Bleed, Home Oxygen, Hyperlipidemia, Hypertension, Internal Pacemaker, Lung Disease, Myocardial Infarction, Palpitations, Renal Disease, Renal Insufficiency, Seizures Denies:: Cancer, Diabetes Mellitus Type 1, MRSA *Have you ever received a pneumonia vaccine?: No *Have you received a flu vaccine this season?: No Other Medical History: Reports: Anemia, Arthritis, Hypothyroidism, Other. Denies: Blood Transfusion Reaction Anesthesia experience/problems:: none Laterality Cases: Right: Total Hip Replacement Other Surgeries: Yes: Appendectomy, Cancer Surgery (SKIN), Cardiac Catheterization, Colonoscopy, Coronary Stent, EGD, Pacemaker, Other Amputation: No Fractures: No - *Social History Last grade of school completed: High school graduate Smoking Status: Never smoker Tobacco Type: cigarettes # Packs/Day (cigarettes): 1 Alcohol Intake: never Alcohol Intake Frequency:: a few times a week Substance Use Type: denies use *Occupational Status:: retired Housing: house Household Members: spouse *Travel in the last 8 weeks: None Family Hx:: Kidney Disease, Heart Attack
[2021-06-15 08:05] VITALS: BP 107/63; PULSE 84; RESP 16; O2SAT 93
--- NOTE | 2021-06-15 08:33 | SUR.PHASEII ---
0800 - DC education reviewed w/ patient and friend at bedside. Pt aware that he will need dressing to R groin changed BID. Appropriate supplies given to patient. Office currently closed to make follow-up. [phone] - Contacted surg office @ this time. States they will call patient w/ follow up
[2021-06-15 08:51] VITALS: TEMP 38
[2022-03-28 10:55] LABS: POC Glucose,Bedside 261 (70-110)
== END 2021-06-15 08:05 | disposition home or self-care (01) ==
LOC: OR 06:05
PROVIDERS: PCP Internal Medicine Adolescent Medicine; Visit Provider Surgery
DX: A63.0 Anogenital (venereal) warts (principal); I10 Essential (primary) hypertension; I48.91 Unspecified atrial fibrillation; J44.9 Chronic obstructive pulmonary disease, unspecified; I50.9 Heart failure, unspecified; Z88.5 Allergy status to narcotic agent; Z95.0 Presence of cardiac pacemaker; E11.9 Type 2 diabetes mellitus without complications; E87.5 Hyperkalemia; Z95.5 Presence of coronary angioplasty implant and graft; Z79.82 Long term (current) use of aspirin; Z79.899 Other long term (current) drug therapy
CPT/HCPCS: 11426; 82962; 88305; 96374

== ENCOUNTER 2021-06-18 11:00 | Outpatient (RCR) | payer MEDICARE, SELFPAY ==
--- NOTE | 2020-10-31 09:31 | HMH.PTOPWND ---
Rehab Outpt Wound Evaluation Rehab OP Wound Evaluation Start: 10/31/20 09:25 Freq: Status: Active Protocol: Document 10/31/20 09:25 PARKER (Rec: 10/31/20 09:31 PARKER [id number]) Electronically Signed By Josep Velasquez, PT 10/31/20 09:25 Subjective/History History History Pt is 79 yowm who presents with increased edema and weeping drainage from B LE x ~ 1 yr. He has significant hx of B LE edema related to multiple co-morbidities resulting in Lymphedema and wounds with significant hyperkeratosis B. Notably he suffers from uncontrolled DM- II, CVI, CKD. He reports having a pacemaker placed also . He reports worse drainage from the R lower leg at this time. He reports feeling better now that his blood glucose is more controlled. Subjective Subjective No c/o pain or tenderness to palpation. He reports less drainage on the R LE this date . B LE unna boot placed this date. Lymphedema Eval Classification of Lymphedema Secondary Lymphedema Yes Stemmer's sign Stemmer's Sign yes Stage of Lymphedema Lymphedema stages Stage III (Non-pitting, fibrosis and sclerosis, skin changes) Skin Changes Dry Skin Yes Skin Folds Yes Hyperkeratosis Yes Papillomatosis Yes Redness Yes Wounds Yes Brittle Uneven Nails Yes Discoloration of Skin Yes Other Changes Yes Affected Extremities Areas Affected by Lymphedema/Edema Right Lower Extremity,Left Lower Extremity Manual Lymphatic Drainage Treatment Area MLD Treatment Area Right Lower Extremity,Left Lower Extremity Wound Problems/Impairments Impairments Problems/Impairmments Impaired Range of Motion, Impaired Strength,Impaired Endurance,Impaired Gait Pattern,Impaired Walking, Increased Edema,Lymphedema Present,Wound Care Needs, I
--- NOTE | 2020-11-29 09:42 | HMH.RHREAS ---
Rehab Reassessment Rehab OP Re-assessment Start: 11/29/20 09:36 Freq: Status: Active Protocol: Document 11/29/20 09:39 PARKER (Rec: 11/29/20 09:42 PARKER [id number]) Electronically Signed By Josep Velasquez, PT 11/29/20 09:39 Rehab Re-assessment Subjective Subjective Pt reports, I felt bad yesterday all day, but I don't know why. I feel a lot better today. Objective Objective Notes R lateral lower leg wound: L= 8.5 cm, W= 11.0 cm Continued drainage from the R lateral lower leg, serous in nature. Moderate maceration noted. Continued pitting edema 2+ and hyperkeratosis remains to B lower legs. Assessment Progress Assessment Slower Than Expected Assessment Notes Pt wounds remain superficialm but moderately macerated. Drainage has not yet decreased as expected. Less hyperkeratosis overall. Patient goals met none Goals Not Met ST,2,3,4 LT,2,3,4 ,5,6 Revised Goals none Plan Plan Continue per initial POC Frequency of Therapy 2 x/wk Duration of therapy 8 wks Time and Billing Re-Eval Time 15 Re-Eval Billing Units 1 PHYSICIAN CERTIFICATION: I certify the specified therapy services for Johnathon Ellsworth are required, authorized, and reviewed every 30 days.
--- NOTE | 2020-12-27 14:12 | HMH.RHREAS ---
Rehab Reassessment Rehab OP Re-assessment Start: 11/29/20 09:36 Freq: Status: Active Protocol: Document 12/27/20 13:25 PARKER (Rec: 12/27/20 13:27 PARKER [id number]) Electronically Signed By Josep Velasquez, PT 12/27/20 13:25 Rehab Re-assessment Subjective Subjective Pt reports, I cleaned my leg off yesterday and I had about 30 or 40 maggots in there. Objective Objective Notes R Lower leg lateral wound: L= 5.0 cm, W= 5.0 cm. Drainage remains serous in nature, moderate amount. Assessment Progress Assessment Progressing as Expected Assessment Notes R lower leg with slight decrease in drainage and less overall hyperkeratosis of the skin. Continued fibrotic edema and open wound to the R lateral lower leg. Patient goals met ST,2,3,4 Goals Not Met LT,2,3,4,5,6 Revised Goals none Plan Plan Continue per initial POC Frequency of Therapy 2 x/wk Duration of therapy 8 wks Time and Billing Re-Eval Time 15 Re-Eval Billing Units 0 PHYSICIAN CERTIFICATION: I certify the specified therapy services for Johnathon Ellsworth are required, authorized, and reviewed every 30 days.
--- NOTE | 2021-01-23 10:08 | HMH.RHREAS ---
Rehab Reassessment Rehab OP Re-assessment Start: 11/29/20 09:36 Freq: Status: Active Protocol: Document 01/23/21 10:03 PARKER (Rec: 01/23/21 10:06 PARKER [id number]) Electronically Signed By Josep Velasquez, PT 01/23/21 10:03 Rehab Re-assessment Subjective Subjective Pt reports, My left leg is busting open again, but my legs don't swell as much. Objective Objective Notes R lateral/posterior wound: L= 8.0 cm, W= 14.0 cm Drainage remains moderate and serous in nature. Assessment Progress Assessment Progressing as Expected Assessment Notes Pt continues to have ebbs and flows of drainage with maceration around R LE wounds to the lower leg. Increased maceration at this time, but less fibrotic edema and hyperkeratosis. Patient goals met ST,2,3,4 Goals Not Met LT,2,3,4,5,6 Revised Goals none Plan Plan Continue per initial POC Frequency of Therapy 2 x/wk Duration of therapy 8 wks Time and Billing Re-Eval Time 15 Re-Eval Billing Units 0 PHYSICIAN CERTIFICATION: I certify the specified therapy services for Johnathon Ellsworth are required, authorized, and reviewed every 30 days.
--- NOTE | 2021-02-22 15:29 | HMH.RHREAS ---
Rehab Reassessment Rehab OP Re-assessment Start: 11/29/20 09:36 Freq: Status: Active Protocol: Document 02/22/21 15:25 PARKER (Rec: 02/22/21 15:29 PARKER [id number]) Electronically Signed By Josep Velasquez, PT 02/22/21 15:25 Rehab Re-assessment Subjective Subjective Pt reports he feels much better today, increased energy . Objective Objective Notes R LE lateral lower leg wound: L= 4.5 cm, W= 4.0 cm. Assessment Progress Assessment Progressing as Expected Assessment Notes Much improved edema in B LE, less wound size and less hyperkeratosis. Patient goals met ST,2,3,4 Goals Not Met LT,2,3,4,5,6 Revised Goals none Plan Plan Continue per initial POC Frequency of Therapy 2 x/wk Duration of therapy 8 wks Time and Billing Re-Eval Time 15 Re-Eval Billing Units 0 PHYSICIAN CERTIFICATION: I certify the specified therapy services for Johnathon Ellsworth are required, authorized, and reviewed every 30 days.
--- NOTE | 2021-03-23 11:38 | HMH.RHREAS ---
Rehab Reassessment Rehab OP Re-assessment Start: 11/29/20 09:36 Freq: Status: Active Protocol: Document 03/23/21 11:36 PARKER (Rec: 03/23/21 11:38 PARKER [id number]) Electronically Signed By Josep Velasquez, PT 03/23/21 11:36 Rehab Re-assessment Subjective Subjective Pt reports, My legs feel a lot better now. Objective Objective Notes R LE lateral lower leg wound: L= 6.0 cm, W= 6.0 cm. L LE lateral lower leg wound: L= 2.5 cm, W= 2.0 cm. Assessment Progress Assessment Progressing as Expected Assessment Notes Pt continues to have large amounts of serous drainage from B LE, but slightly less edema noted overall. Much less hyperkeratosis noted throughout B LE. Patient goals met ST,2,3,4 Goals Not Met LT,2,3,4,5,6 Revised Goals none Plan Plan Continue per initial POC Frequency of Therapy 2 x/wk Duration of therapy 8 wks Time and Billing Re-Eval Time 15 Re-Eval Billing Units 0 PHYSICIAN CERTIFICATION: I certify the specified therapy services for Johnathon Ellsworth are required, authorized, and reviewed every 30 days.
--- NOTE | 2021-04-17 15:19 | HMH.RHREAS ---
Rehab Reassessment Rehab OP Re-assessment Start: 11/29/20 09:36 Freq: Status: Active Protocol: Document 04/17/21 15:17 PARKER (Rec: 04/17/21 15:19 PHOBOLIVAR [id number]) Electronically Signed By Josep Velasquez, PT 04/17/21 15:17 Rehab Re-assessment Subjective Subjective Pt presents with c/o less edema in B LE and less discomfort throughout. Objective Objective Notes B LE continues to show large amts of purulent drainage, less maceration noted currently. R lat lower leg wound: L= 17.0 cm, W= 14.0 cm L lat lower leg wound: L= 8.0 cm, W= 5.0 cm. Assessment Progress Assessment Progressing as Expected Assessment Notes Pt has decreased drainage slightly at this time, but it remains purulent and malodorous from the R LE. Edema decreased, hyperkeratosis remains. Patient goals met ST,2,3,4 Goals Not Met LT,2,3,4,5,6 Revised Goals none Plan Plan Continue per initial POC Frequency of Therapy 2 x/wk Duration of therapy 8 wks Time and Billing Re-Eval Time 15 Re-Eval Billing Units 0 PHYSICIAN CERTIFICATION: I certify the specified therapy services for Johnathon Ellsworth are required, authorized, and reviewed every 30 days.
--- NOTE | 2021-05-17 10:46 | HMH.RHREAS ---
Rehab Reassessment Rehab OP Re-assessment Start: 11/29/20 09:36 Freq: Status: Active Protocol: Document 05/17/21 10:43 PARKER (Rec: 05/17/21 10:46 PARKER [id number]) Electronically Signed By Josep Velasquez, PT 05/17/21 10:43 Rehab Re-assessment Subjective Subjective Pt reports he feels he is doing better overall. He reports taking a supplement for his prostate that has helped him with voiding and he feels this has helped decrease his edema. Objective Objective Notes R lat lower leg wound: L= 15.0 cm, W= 10.0 cm L lat lower leg wound: L= 7.0 cm, W= 4.0 cm. Wound present with more granulation tissue and less purulent drainage, more serous this date. Assessment Progress Assessment Progressing as Expected Assessment Notes Pt has decreased drainage at this time, More serous as noted previously. Improving granulation tissue and minimal slough noted. Edema decreased , hyperkeratosis remains. Patient goals met ST,2,3,4 Goals Not Met LT,2,3,4,5,6 Revised Goals none Plan Plan Continue per initial POC Frequency of Therapy 2 x/wk Duration of therapy 8 wks Time and Billing Re-Eval Time 15 Re-Eval Billing Units 0 PHYSICIAN CERTIFICATION: I certify the specified therapy services for Johnathon Ellsworth are required, authorized, and reviewed every 30 days.
== END 2021-06-18 11:05 | disposition home or self-care (01) ==
LOC: PT 11:00
PROVIDERS: PCP Internal Medicine Adolescent Medicine; Visit Provider Internal Medicine Adolescent Medicine
DX: I89.0 Lymphedema, not elsewhere classified (principal); L03.115 Cellulitis of right lower limb; I87.2 Venous insufficiency (chronic) (peripheral)
CPT/HCPCS: 29580; 97162; 97164; 97597; 97598

== ENCOUNTER → 2021-09-10 11:57 | Outpatient (CLI) | payer MEDICARE, SELFPAY | PROVIDERS: PCP Internal Medicine Adolescent Medicine; Visit Provider Internal Medicine Infectious Disease | DX: R78.81 Bacteremia (principal); B95.8 Unspecified staphylococcus as the cause of diseases classified elsewhere | CPT/HCPCS: 36415; 87040; 87077; 87186 ==

== ENCOUNTER 2022-02-06 18:35 | Observation (INO) | payer MEDICARE, SELFPAY ==
[2022-02-06] VITALS (10 sets, daily range): BP systolic 117–148; BP diastolic 42–75; PULSE 70–114; RESP 17–28; TEMP 36.8–39.7; O2SAT 89–99; BMI 36.5; BMI 35.7
--- NOTE | 2022-02-06 18:41 | XR_ITS ---
PROCEDURE INFORMATION: Exam: XR Chest Exam date and time: 02/06/2022 7:14 PM Age: 81 years old Clinical indication: Shortness of breath; Additional info: SOB TECHNIQUE: Imaging protocol: Radiologic exam of the chest. Views: 1 view. COMPARISON: CR XR CHEST 2V 01/31/2021 10:41 AM FINDINGS: Tubes, catheters and devices: Dual lead left-sided cardiac pacemaker. Lungs: Extensive bilateral airspace disease concerning for worsening pneumonia. Pleural spaces: Small bilateral pleural effusions. Heart/Mediastinum: Cardiomegaly. Bones/joints: Unremarkable. IMPRESSION: Worsening bilateral pneumonia.
--- NOTE | 2022-02-06 18:57 | ECG_ITS ---
APPROVED REPORT Exam: Resting ECG HR:111 bpm ECG Measurements Heart Rate 111 AXES AR 187 P 81 QRSd 99 QRS -29 QT 323 T 49 QTc 388 Conclusion SINUS TACHYCARDIA WITH OCCASIONAL VENTRICULAR PREMATURE COMPLEXES POSSIBLE ANTERIOR MYOCARDIAL INFARCTION , OF INDETERMINATE AGE [30 ms Q WAVE IN V3/V4, OR R < 0.2 mV IN V4] ABNORMAL ECG UNCONFIRMED REPORT Electronically signed by : Rodrigo Cook MD 02/08/2022 21:44:28
--- NOTE | 2022-02-06 19:03 | PC.NURSE ---
PORT CHEST BEING DONE
[2022-02-06 19:20] LABS: Coronavirus 19, PCR Not Detected (NotDetected); Influenza A, PCR Not Detected (NotDetected); Influenza B, PCR Not Detected (NotDetected)
--- NOTE | 2022-02-06 19:24 | PC.NURSE ---
RT at to obtain ABG
[2022-02-06 19:33] LABS: ABG Base Excess 4.1 mmol/L (-2.4-2.3); ABG HCO3 27.6 mmhg (22.0-26.0); ABG Oxygen Saturation 91 % (90-100); ABG PCO2 37.6 mmhg (35.0-45.0); ABG PH 7.48 mmol/L (7.35-7.45); ABG PO2 59.3 mmhg (80-100); ABG TCO2 28.7 mmhg (23-27)
[2022-02-06 19:35] LABS: Allen's Test Acceptable; Source Left Radial
[2022-02-06 19:36] LABS: Oxygen 6lpm %
[2022-02-06 19:39] LABS: Lactic Acid 1.6 mmol/L (0.7-2.1)
[2022-02-06 19:46] LABS: Basophils % 0.1 % (0.1-2.0); Eosinophils # 0.1 K/mm3 (0.0-0.4); Eosinophils % 0.6 % (0.1-12.0); Hematocrit 30.3 % (42.0-52.0); Lymphocytes # 0.3 K/mm3 (0.7-4.5); Mean Corpuscular HGB Conc 29.8 g/dL (31.8-35.4); Mean Corpuscular Hemoglobin 22.9 pg (27.0-31.2); Mean Corpuscular Volume 76.8 fl (80-94); Mean Platelet Volume 8.5 fl (7.4-10.4); Monocytes # 0.3 K/mm3 (0.1-1.0); Neutrophils # 14.9 K/mm3 (1.8-7.8); Neutrophils % 95.3 % (37.0-80.0); Platelet Count 264 K/mm3 (142-424); Red Blood Count 3.95 M/mm3 (4.60-6.20); Red Cell Distribution Width 17.2 % (11.5-17.5); White Blood Count 15.6 K/mm3 (4.8-10.8)
[2022-02-06 19:55] LABS: Amylase 33 U/L (30-110)
[2022-02-06 19:56] LABS: Alanine Aminotransferase 16 U/L (12-78); Albumin Level 3.1 g/dl (3.5-5.0); Alkaline Phosphatase 94 U/L (38-126); Anion Gap 10.6 mEq/L (5-15); Aspartate Amino Transferase 30 U/L (17-59); Blood Urea Nitrogen 39 mg/dl (9-20); Calcium 8.2 mg/dl (8.4-10.2); Carbon Dioxide 29 mmol/L (22.0-30.0); Chloride 100 mmol/L (98-107); Creatinine Clearance Estimated 37 mL/min (50-200); Estimated Glomerular Filt Rate 25 ml/min (>60); GFR (African American) 30 ML/MIN (>60); Glucose 213 mg/dl (74-100); Potassium 4.6 mmoL/L (3.5-5.1); Sodium 135 mmol/L (136-145); Total Protein,Serum 6.1 g/dl (6.3-8.2)
[2022-02-06 20:01] LABS: C-Reactive Protein 297.8 mg/L (0-4); Lipase < 10 U/L (23-300)
[2022-02-06 20:02] LABS: MANUAL DIFFERENTIAL MANUAL DIFFERENTIAL (MANUAL DIFF)
[2022-02-06 20:07] LABS: NT Pro Brain Natriuretic Pep. 11100 pg/mL (0-450)
--- NOTE | 2022-02-06 20:12 | PC.NURSE ---
PT MADE AWARE OF NEED FOR URINE SAMPLE. URINAL GIVEN. PT STATES HE IS UNABLE TO VOID AT THIS TIME. FAMILY AT BEDSIDE. SPO2 MONITORY, TELEMETRY AND BLOOD PRESSURE APPLIED. NO ACUTE DISTRESS NOTED.
[2022-02-06 20:15] LABS: Procalcitonin 35.3 ng/mL (0.0-2.0)
[2022-02-06 20:32] LABS: Erythrocyte Sedimentation Rate 78 mm/hr (0-20)
[2022-02-06 20:33] LABS: Troponin I 0.51 ng/ml (0.00-0.034)
--- NOTE | 2022-02-06 20:36 | HMH.EDSOB ---
ED Disposition Clinical Impression: Acute on chronic congestive heart failure with right ventricular diastolic dysfunction, SIRS (systemic inflammatory response syndrome), Obesity (BMI 30-39.9), YENIFER (acute kidney injury), Cardiac pacemaker in situ, Acute exacerbation of chronic obstructive airways disease Community acquired pneumonia Qualifiers: Laterality: unspecified laterality Qualified Code(s): J18.9 - Pneumonia, unspecified organism Type 2 diabetes mellitus Qualifiers: Diabetes mellitus supervisor intermediates insulin use: unspecified supervisor intermediates insulin use status Diabetes mellitus complication status: with other specified complication Qualified Code(s): E11.69 - Type 2 diabetes mellitus with other specified complication Anemia Qualifiers: Anemia type: unspecified type Qualified Code(s): D64.9 - Anemia, unspecified Disposition: Admitted As Inpatient Condition on Discharge: Good - Critical Care Critical Care Time: No Attestation: On 02/06/22, the high probability of a clinically significant, sudden or life threatening deterioration of the following system(s) required my full and direct attention, intervention and personal management. The time I documented below is in addition to time spent performing reported procedures but includes the following listed in this critical care notation. Medical Decision Making - Medical Records Medical records reviewed: Yes: I reviewed the patient's medical records. - Kehinde Inquiry Pt receiving controlled substance: No Vital Signs: 02/06/22 18:33 02/06/22 19:01 02/06/22 19:55 Temperature 103.5 F H Temperature Source Oral Pulse Rate 111 H 114 H Pulse Rate [Radial] 113 H Respiratory Rate 28 H 24 Blood Pressure 140/58 L Blood Pressure [Right Arm] 148/67 H Blood Pressure Mean [Right Arm] 94 Blood Pressure Position [Right Arm] Sitting 02 Sat by Pulse Oximetry 89 L 94 L Oxygen Delivery Method Nasal Cannula Nasal Cannula Oxygen Flow Rate (LPM) 3 6 02/06/22 20:09 02/06/22 20:31 Temperature Temperature Source Pulse Rate 109 H 107 H Pulse Rate [Radial] Respiratory Rate 17 Blood Pressure 124/56 L 117/42 L Blood Pressure [Right Arm] Blood Pressure Mean [Right Arm] Blood Pressure Position [Right Arm] 02 Sat by Pulse Oximetry 94 L 94 L Oxygen Delivery Method Nasal Cannula Nasal Cannula Oxygen Flow Rate (LPM) 6 6 - Lab Data Lab results reviewed: Yes: I reviewed the patient's lab results. Lab Results 02/06/22 19:15: SARS-CoV-2 (PCR) Not detected, Influenza A Untype (PCR) Not detected, Influenza Type B (PCR) Not detected 02/06/22 19:21: WBC 15.6 H, RBC 3.95 L, Hgb 9.0 L, Hct 30.3 L, MCV 76.8 L, MCH 22.9 L, MCHC 29.8 L, RDW 17.2, Plt Count 264, MPV 8.5, Neut % (Auto) 95.3 H, Lymph % (Auto) 2.0 L, Jasper % (Auto) 2.0, Eos % (Auto) 0.6, Baso % (Auto) 0.1, Neut # (Auto) 14.9 H, Lymph # (Auto) 0.3 L, Jasper # (Auto) 0.3, Eos # (Auto) 0.1, Baso # (Auto) 0.0 02/06/22 19:21: Sodium 135 L, Potassium 4.6, Chloride 100, Carbon Dioxide 29, Anion Gap 10.6, BUN 39 H, Creatinine 2.50 H, Estimated Creat Clear 37, Estimated GFR 25 L, Est GFR ( Amer) 30 L, Glucose 213 H, Calcium 8.2 L, Total Bilirubin 1.0, AST 30, ALT 16, Alkaline Phosphatase 94, Troponin I 0.51 H, Total Protein 6.1 L, Albumin 3.1 L, Globulin 3.0, Albumin/Globulin Ratio 1.0 L 02/06/22 19:21: Lactate 1.6 02/06/22 19:21: C-Reactive Protein 297.8 H, NT-Pro-B Natriuret Pep 29192 H, Amylase 33 02/06/22 19:21: ESR 78 H 02/06/22 19:21: Lipase < 10 L, Procalcitonin 35.3 H 02/06/22 19:30: Specimen Source Left radial, O2 % 6lpm, ABG pH 7.48 H, ABG pCO2 37.6, ABG pO2 59.3 L, ABG HCO3 27.6 H, ABG Total CO2 28.7 H, ABG O2 Saturation 91, ABG Base Excess 4.1 H, Trace Test Acceptable Result diagrams: 02/06/22 19:21 02/06/22 19:21 Orders (Tests/Meds): ED MEDICATIONS Generic Name Dose Route Start Last Admin Trade Name Freq PRN Reason Stop Dose Admin Levofloxacin/Dextrose 500 mg in 100 mls @ 100 mls/hr 02/06/22 21
--- NOTE | 2022-02-06 21:25 | PC.NURSE ---
Pt sitting up in wheelchair per request. Pt voiced no other needs at this time.
[2022-02-06 21:37] LABS: POC Glucose,Bedside 249 (70-110)
--- NOTE | 2022-02-06 21:41 | PC.NURSE ---
Patient just informed staff that she was leaving for the night and she asked if we would keep an eye on her . We informed her that we would be glad to care for her and that he would be transferred to the [facility] soon.
[2022-02-06 21:46] LABS: Microscopic, Urine URINE MICROSCOPIC (MICROSCOPIC)
[2022-02-06 22:05] LABS: Appearance,Urine CLEAR (Clear); Blood, Urine 2+ (Negative); Color,Urine AMBER (Yellow); Glucose,Urine (UA) Negative (Negative); Ketones,Urine Negative (Negative); Leukocyte Esterase,Urine Negative (Negative); Nitrate,Urine Negative (Negative); Protein,Urine 2+ (Negative); Specific Gravity, Urine >= 1.030 (1.005-1.030)
[2022-02-06 22:09] LABS: Bilirubin,Urine 1+ (Negative)
[2022-02-06 22:13] LABS: Lymphocytes % 6 % (10-50); Monocytes % 1 % (2-9); Neutrophils % 93 % (42-76); Total Cells Counted 100
[2022-02-06 22:14] LABS: Hypersegmented Neutrophils 1+; Hypochromasia 2+; Ovalocytes 1+; Platelet Estimate Normal
[2022-02-06 22:24] LABS: Bacteria,Urine 2+ /lpf
--- NOTE | 2022-02-06 22:31 | PC.NURSE ---
PT ARRIVED TO FLOOR VIA W/C @ [id number]
[2022-02-06 22:43] LABS: Troponin I 0.56 ng/ml (0.00-0.034)
--- NOTE | 2022-02-06 23:22 | PC.NURSE ---
Addendum entered by Maty Lim RN 02/07/22 04:39: Patient more cooperative this AM. Skin assessment performed. Scaly patches to BLE with some erythema noted. Patient agreeable to being washed up. Patient a&0 x4. Patient tolerating 4l nc sats above 90%. Some expiatory wheezing noted. Original Note: Patient admitted to floor. Patient is a poor historian and non complaint. Patient refused skin assessment. Gonzalo bandages noted to BLE patient states he has cellulites but refuses this RN to unwrap and assess legs. Patient also states he wants to sleep in a chair like he does at home. Patient assist x2 to chair. Critical trop called of 0.56 reported to Joyce who ordered to cancel the third trop lab. Patient refusing bath and change of cloths at this time patient smells of urine. Patient states I dont want to right now it to late. will try later. Patient is a&0x4 on 6L NC. Call light within reach
[2022-02-07] VITALS (12 sets, daily range): BP systolic 85–144; BP diastolic 43–70; PULSE 60–117; RESP 17–20; TEMP 36.2–37.1; O2SAT 90–99; BMI 35.7
[2022-02-07 07:02] LABS: Basophils % 0.1 % (0.1-2.0); Eosinophils % 0.2 % (0.1-12.0); Hematocrit 31.9 % (42.0-52.0); Hemoglobin 9.2 g/dL (14.1-18.0); Lymphocytes # 0.3 K/mm3 (0.7-4.5); Lymphocytes % 1.7 % (10-50); Mean Corpuscular HGB Conc 28.9 g/dL (31.8-35.4); Mean Corpuscular Hemoglobin 23.1 pg (27.0-31.2); Mean Corpuscular Volume 79.9 fl (80-94); Mean Platelet Volume 8.6 fl (7.4-10.4); Monocytes # 0.4 K/mm3 (0.1-1.0); Monocytes % 2.4 % (1.7-9.3); Neutrophils # 13.8 K/mm3 (1.8-7.8); Neutrophils % 95.6 % (37.0-80.0); Platelet Count 275 K/mm3 (142-424); Red Blood Count 3.99 M/mm3 (4.60-6.20); Red Cell Distribution Width 17.3 % (11.5-17.5); White Blood Count 14.5 K/mm3 (4.8-10.8)
[2022-02-07 07:09] LABS: MANUAL DIFFERENTIAL MANUAL DIFFERENTIAL (MANUAL DIFF)
[2022-02-07 07:10] LABS: Chloride 98 mmol/L (98-107); Potassium 4.8 mmoL/L (3.5-5.1); Sodium 133 mmol/L (136-145)
[2022-02-07 07:13] LABS: Anion Gap 11.8 mEq/L (5-15); Blood Urea Nitrogen 46 mg/dl (9-20); Calcium 8.3 mg/dl (8.4-10.2); Carbon Dioxide 28 mmol/L (22.0-30.0); Creatinine Clearance Estimated 38 mL/min (50-200); Estimated Glomerular Filt Rate 26 ml/min (>60); GFR (African American) 32 ML/MIN (>60)
[2022-02-07 07:14] LABS: Magnesium 1.7 mg/dl (1.6-2.3)
[2022-02-07 07:26] LABS: Glucose 419 mg/dl (74-100)
--- NOTE | 2022-02-07 07:51 | P.CONPHA_ITS ---
[facility] Pharmacy VTE Monitoring - Patient Demographics Admission date: 02/07/22 Report Date: 02/07/22 Time: 07:51 Allergies/Adverse Reactions: Patient Allergies morphine Allergy (Severe, Verified 01/01/22 13:35) Swelling of Lip/Tongue/Throat Height: 1.73 m Weight: 107.048 kg Patient Problems: Current Active Problems Community acquired pneumonia (Acute) SIRS (systemic inflammatory response syndrome) (Acute) Obesity (BMI 30-39.9) (Acute) YENIFER (acute kidney injury) (Acute) Acute on chronic congestive heart failure with right ventricular diastolic dysfunction (Acute) Cardiac pacemaker in situ (Chronic) Acute exacerbation of chronic obstructive airways disease (Acute) Anemia (Chronic) Type 2 diabetes mellitus (Chronic) - VTE Risk Labs: VTE Related Lab Results Hgb 9.2 g/dL (14.1-18.0) L 02/07/22 06:24 Hct 31.9 % (42.0-52.0) L 02/07/22 06:24 Plt Count 275 K/mm3 (142-424) 02/07/22 06:24 BUN 46 mg/dl (9-20) H 02/07/22 06:24 Creatinine 2.40 mg/dl (0.66-1.25) H 02/07/22 06:24 Estimated Creat Clear 38 mL/min (50-200) 02/07/22 06:24 Was VTE Risk Assessment Performed: Yes VTE Score: 8 VTE Risk Level: Moderate Risk Clinical Trial Participant: No - Prophylaxis VTE Prophylaxis Ordered?: Yes Types of VTE Prophylaxis: TEDS Knee High
[2022-02-07 07:52] LABS: Anisocytosis 1+; Hypochromasia 1+; Lymphocytes % 3 % (10-50); Monocytes % 1 % (2-9); Neutrophils % 96 % (42-76); Platelet Estimate Normal; Total Cells Counted 100
--- NOTE | 2022-02-07 07:56 | HMH.PHACONS ---
- Pharmacy Consult Date: 02/07/22 Time: 07:56 Referring provider: DR GONZALEZ Reason for Consult:: VANCOMYCIN DOSING CONSULT Allergies and ADEs:: Allergies Allergy/AdvReac Type Severity Reaction Status Date / Time morphine Allergy Severe Swelling Verified 01/01/22 13:35 of Lip/Tongue/Throat Home Medications:: Home Medications Medication Instructions Recorded Confirmed Type Aspirin [Aspirin 81mg EC Tab] 81 mg PO DAILY 30 Days #30 tab 10/20/20 02/06/22 Rx Atorvastatin Calcium [Lipitor 40mg 40 mg PO HS 30 Days #30 tab 10/20/20 02/06/22 Rx Tab] Ferrous Sulfate [Iron] 325 mg PO DAILY 30 Days #30 tab 10/20/20 02/06/22 Rx Montelukast Sodium [Singulair 10mg 10 mg PO HS 30 Days #30 tab 10/20/20 02/06/22 Rx tablet] allopurinoL [Allopurinol 300mg 300 mg PO DAILY 30 Days #30 tab 10/20/20 02/06/22 Rx tablet] Bumetanide [Bumex 1mg tablet] 2 mg PO DAILY 01/01/21 02/06/22 History Loratadine [Claritin 10mg 10 mg PO DAILY 01/02/21 02/06/22 History Tablet] Metoprolol Tartrate [Lopressor 100 100 mg PO DAILY 01/02/21 02/06/22 History mg Tablets] lisinopriL [Lisinopril] 20 mg PO DAILY 01/31/21 02/06/22 History Oxycodone HCl 30 mg PO QIDP PRN 02/01/21 02/06/22 History insulin human U-100 NPH-regulr 30 unit SQ TID vial 03/26/21 02/06/22 History 70-30 mix 100 unit/mL subcutaneous susp gabapentin 800 mg tablet 800 mg PO TID tab 01/01/22 02/07/22 History Furosemide [Furosemide 40MG tAB*] 40 mg PO DAILY 02/06/22 02/06/22 History Omeprazole [Omeprazole 40mg 40 mg PO DAILY 02/07/22 02/07/22 History Capsule] Height: 1.73 m Weight: 107.048 kg Laboratory Results:: Laboratory Results - last 24 hr 02/06/22 19:15: SARS-CoV-2 (PCR) Not detected, Influenza A Untype (PCR) Not detected, Influenza Type B (PCR) Not detected 02/06/22 19:21: WBC 15.6 H, RBC 3.95 L, Hgb 9.0 L, Hct 30.3 L, MCV 76.8 L, MCH 22.9 L, MCHC 29.8 L, RDW 17.2, Plt Count 264, MPV 8.5, Neut % (Auto) 95.3 H, Lymph % (Auto) 2.0 L, Mayes % (Auto) 2.0, Eos % (Auto) 0.6, Baso % (Auto) 0.1, Neut # (Auto) 14.9 H, Lymph # (Auto) 0.3 L, Mayes # (Auto) 0.3, Eos # (Auto) 0.1, Baso # (Auto) 0.0, Total Counted 100, Neutrophils % (Manual) 93 H, Lymphocytes % (Manual) 6 L, Monocytes % (Manual) 1 L, Hypersegmented Neuts 1+, Platelet Estimate Normal, Hypochromasia 2+, Ovalocytes 1+ 02/06/22 19:21: Sodium 135 L, Potassium 4.6, Chloride 100, Carbon Dioxide 29, Anion Gap 10.6, BUN 39 H, Creatinine 2.50 H, Estimated Creat Clear 37, Estimated GFR 25 L, Est GFR ( Amer) 30 L, Glucose 213 H, Calcium 8.2 L, Total Bilirubin 1.0, AST 30, ALT 16, Alkaline Phosphatase 94, Troponin I 0.51 H, Total Protein 6.1 L, Albumin 3.1 L, Globulin 3.0, Albumin/Globulin Ratio 1.0 L 02/06/22 19:21: Lactate 1.6 02/06/22 19:21: C-Reactive Protein 297.8 H, NT-Pro-B Natriuret Pep 40599 H, Amylase 33 02/06/22 19:21: ESR 78 H 02/06/22 19:21: Lipase < 10 L, Procalcitonin 35.3 H 02/06/22 19:30: Specimen Source Left radial, O2 % 6lpm, ABG pH 7.48 H, ABG pCO2 37.6, ABG pO2 59.3 L, ABG HCO3 27.6 H, ABG Total CO2 28.7 H, ABG O2 Saturation 91, ABG Base Excess 4.1 H, Trace Test Acceptable 02/06/22 21:28: POC Glucose 249 H 02/06/22 21:30: Urine Color Mell, Urine Appearance Clear, Urine pH 5.0, Ur Specific Hope >= 1.030, Urine Protein 2+, Urine Glucose (UA) Negative, Urine Ketones Negative, Urine Blood 2+, Urine Nitrate Negative, Urine Bilirubin 1+ A, Urine Urobilinogen 1.0, Ur Leukocyte Esterase Negative, Urine RBC 10-20, Urine WBC 3-5, Ur Squamous Epith Cells 5-10, Urine Bacteria 2+ 02/06/22 21:44: Troponin I 0.56 H 02/07/22 06:24: WBC 14.5 H, RBC 3.99 L, Hgb 9.2 L, Hct 31.9 L, MCV 79.9 L, MCH 23.1 L, MCHC 28.9 L, RDW 17.3, Plt Count 275, MPV 8.6, Neut % (Auto) 95.6 H, Lymph % (Auto) 1.7 L, Mayes % (Auto) 2.4, Eos % (Auto) 0.2, Baso % (Auto) 0.1, Neut # (Auto) 13.8 H, Lymph # (Auto) 0.3 L, Mayes # (Auto) 0.4, Eos # (Auto) 0.0, Baso # (Auto) 0.0, Total Counted 100, Neutrophils % (Manual) 96 H, L
--- NOTE | 2022-02-07 08:00 | CA_ITS ---
APPROVED REPORT EXAM: Comprehensive 2D, Doppler, and color-flow Echocardiogram Eddy Current Inspector: Latanya James RDCS Ht: 5 ft 8 in Wt: 286lbs BSA: 2.38 BP: 140/58 mmHg Indications: CHF,DM,PP,COPD,PNEUMONIA TDS SOA,OBESITY, STUDY OBTAINED WITH PT UPRIGHT LIMITED EXAM 2D Dimensions LVOT 2.14 cm (M/F) 1.5-2.5 M-Mode Dimensions RVDd 2.63 cm (0.9-2.6) LA Diam 4.57 cm (1.9-4.0) LVDd 3.80 cm (3.5-5.7) Ao Diam 3.48 cm (2.0-3.7) LVDs 2.39 cm (3.5-5.7) IVSd 1.27 cm (0.6-1.1) PWd 1.31 cm (0.6-1.1) EF (Teich) 67.70% FS 37.10% EDV (Teich) 62.00 mL ESV (Teich) 20.00 mL LV Diastology E Decel Time 153.00 (160-240 msec) E/A Ratio 0.7 Mitral Valve MV E Max Mohan. 58.00 (40-130 cm/s) MV A Velocity 82.00 (40-130 cm/s) E/A Ratio 0.71 MV Decel. Time 153.00 (160-240 ms) MV PHT 45.00 ms Left Ventricle 1. Technically difficult and poor study because of the patient factors and poor acoustic windows. Left atrium is mildly enlarged, left ventricle is normal size mild concentric left ventricular hypertrophy, estimated ejection fraction 55% with no obvious regional wall motion abnormality in the obtained views. Doppler evidence of impaired LV relaxation. Right Ventricle Right atrium and right ventricle are mildly enlarged with normal contractility. Aortic Valve Aortic valve is minimally thickened and calcified there is no aortic stenosis aortic insufficiency. Mitral Valve Mitral valve leaflets are minimally thickened, there is trace mitral regurgitation. Tricuspid Valve Tricuspid valve grossly normal, there is trace tricuspid regurgitation, tricuspid regurgitation jet velocity is inadequate for calculation of the right ventricular systolic pressure. Pulmonic Valve Pulmonic valve is poorly visualized. Great Vessels Aortic root is normal size. Inferior vena cava is poorly visualized. Pericardium No significant pericardial effusion noted. Conclusion 1. Technically difficult and poor study because of the patient factors and poor acoustic windows. 2. Mild biatrial normal, normal left ventricular size, mild concentric left ventricular hypertrophy, estimated ejection fraction 55% with no obvious regional wall motion abnormality in the obtained views, Doppler evidence of impaired LV relaxation seen. 3. Mildly enlarged right ventricle with normal contractility. 4. Trace mitral and tricuspid regurgitation. 5. No significant pericardial effusion noted. 5. Inferior vena cava is poorly visualized. Electronically signed by : René De León MD 02/08/2022 16:00:07
[2022-02-07 08:04] LABS: POC Glucose,Bedside 413 (70-110)
--- NOTE | 2022-02-07 08:41 | HMH.HP ---
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 We have been seen patient in our office to adjust his diuretics and he had been improving with new diuretic regimen in spite of a couple weeks where he was noncompliant with the medication because the pharmacy never told me they had my medicine. He was improving vis-?-vis fluid output when EMS was called yesterday by his because he was hypoxic and nonresponsive. According to EMS they arrived to find empty oxygen tanks and the nasal cannula device nowhere near the patient's face. The patient this morning is surprised to hear this and states that his was just changing over the tanks. In the ER he was evaluated with x-ray and laboratory studies. X-ray showed new pneumonic infiltrate with trace pleural effusion and labs showed mild leukocytosis. Also had other evidence with high procalcitonin levels of bacterial infection and he was admitted to hospital for IV antibiotics, restarting oxygen therapy and further addressing of his metabolic issues. This morning the patient is upright in his chair and is alert, oriented x3 and feels much better. [facility] History I have reviewed the patient's past medical history: Yes Medical History: Reports:: Asthma, Atrial Fibrillation, Cardiomyopathy, Congestive Heart Failure, Chronic Obstructive Pulmonary Disease (COPD), Congenital Heart Disease, Coronary Artery Disease, Diabetes Mellitus Type 2, Gastroesophageal Reflux Disease(GERD), Gastrointestinal Bleed, Home Oxygen, Hyperlipidemia, Hypertension, Internal Pacemaker, Lung Disease, MRSA, Myocardial Infarction, Palpitations, Renal Disease, Renal Insufficiency, Seizures, Transient Ischemic Attacks (TIA) Denies:: Cancer, Diabetes Mellitus Type 1 *Have you ever received a pneumonia vaccine?: No *Have you received a flu vaccine this season?: No Other Medical History: Reports: Anemia, Arthritis, Hypothyroidism, Other. Denies: Blood Transfusion Reaction Laterality Cases: Right: Total Hip Replacement Other Surgeries: Yes: Appendectomy, Cancer Surgery (SKIN), Cardiac Catheterization, Colonoscopy, Coronary Stent, EGD, Pacemaker, Other Amputation: No Fractures: No - *Social History Smoking Status: Never smoker Tobacco Type: cigarettes # Packs/Day (cigarettes): 1 Alcohol Intake: never Alcohol Intake Frequency:: a few times a week Substance Use Type: denies use *Occupational Status:: retired Housing: house Household Members: spouse *Travel in the last 8 weeks: None Family Hx:: Unable to obtain Review of Systems - Review of Systems Review of systems:: pertinent systems reviewed and negative unless documented below - *Neurologic Reports weakness, Denies seizure-like activity Meds Home Medications Medication Instructions Recorded Confirmed Type Aspirin [Aspirin 81mg EC Tab] 81 mg PO DAILY 30 Days #30 tab 10/20/20 02/06/22 Rx Atorvastatin Calcium [Lipitor 40mg 40 mg PO HS 30 Days #30 tab 10/20/20 02/06/22 Rx Tab] Ferrous Sulfate [Iron] 325 mg PO DAILY 30 Days #30 tab 10/20/20 02/06/22 Rx Montelukast Sodium [Singulair 10mg 10 mg PO HS 30 Days #30 tab 10/20/20 02/06/22 Rx tablet] allopurinoL [Allopurinol 300mg 300 mg PO DAILY 30 Days #30 tab 10/20/20 02/06/22 Rx tablet] Bumetanide [Bumex 1mg tablet] 2 mg PO DAILY 01/01/21 02/06/22 History Loratadine [Claritin 10mg 10 mg PO DAILY 01/02/21 02/06/22 History Tablet] Metoprolol Tartrate [Lopressor 100 100 mg PO DAILY 01/02/21 02/06/22 History mg Tablets] lisinopriL [Lisinopril] 20 mg PO DAILY 01/31/21 02/06/22 History Oxycodone HCl 30 mg PO QIDP PRN 02/01/21 02/06/22 History insulin human U-100 NPH-regulr 30 unit SQ
--- NOTE | 2022-02-07 09:45 | PC.NURSE ---
courtesy tech round : Patient was assisted x2 from chair to bedside commode and back to chair.
--- NOTE | 2022-02-07 09:45 | PC.NURSE ---
Patient needed to use the restroom. Tiffanie and I got him from the chair to the bedside commode and the back to the chair once he was finished. Lavonne Rudd SRNA
--- NOTE | 2022-02-07 09:48 | PC.NURSE ---
Patients water pitcher is filled up. Lavonne Rudd SRNA
--- NOTE | 2022-02-07 11:13 | PC.NURSE ---
Notified Dr. Cook of critical glucose this am upon am rounds. NNO, ensured ssi was ordered.
--- NOTE | 2022-02-07 11:34 | HMH.PTEV ---
Physical Therapy Evaluation Rehab PT IP Evaluation Start: 02/07/22 08:40 Freq: ONCE Status: Active Protocol: Document 02/07/22 11:00 BRIDGET (Rec: 02/07/22 11:34 BRIDGET [id number]) Subjective/History History History This is the inital IP TP evaluation for Johnathon Ellsworth - Pt was admitted for respiratory failure from pneumonia Subjective Subjective Pt reports he feels weak Rehab PT IP Eval Objective Appearance Patient Behavior Cooperative Patient Orientation Place,Name,Age,Year Difficulty following instructions none Speech Pattern Appropriate,Includes Profanity Ambulation Patient Able to Ambulate Yes Ambulation Observation IP General Gait Pattern Observation Wide Based Gait Ambulation Distance (feet) 30 Ambulation Assistive Device Rolling Walker Ambulation Ability Supervision/Stand by Balance Ability to Arise Able, uses arms to help Sitting Balance Steady, safe Standing Balance Steady, wide stance Dynamic Sitting Balance Ability Good Dynamic Standing Balance Ability Fair Transfers Chair Transfer Ability Independent Sit to Stand Chair Transfer Ability Independent,Supervision/Stand by Rehab PT IP prob,goals,plan Problems Date of Evaluation: 02/07/22 Rehab Potential Rehab Potential Innapropriate for Skilled Therapy Discharge Plan PT Discharge Plan Pt I w/ transfers and ambulation - no need for skilled therapy at this time - pt will be seen in afternoon for UNNA boot wraps of BLE G -code Required Yes Eval Complexity Eval Charge Codes 08642 - Low Complexity G Codes PT Current Status Mobility PT Current Status Modifier CI-At least 1% but less than 20% impaired, limited or restricted PT Goal Status Mobility PT Goal Status Modifer CI-At least 1% but less than 20% impaired, limited or restricted PHYSICIAN CERTIFICATION: I certify the specified therapy services for Johnathon Ellsworth are required, authorized, and reviewed every 30 days.
[2022-02-07 11:57] LABS: POC Glucose,Bedside 364 (70-110)
--- NOTE | 2022-02-07 14:06 | HMH.PTWOUND ---
Rehab Inpt Wound Evaluation Rehab IP Wound Evaluation Start: 02/07/22 11:35 Freq: ONCE Status: Active Protocol: Document 02/07/22 13:57 BRIDGET (Rec: 02/07/22 14:06 [email or web address] [id number]) Rehab PT Wound Assessment Patient Status Premedicated Prior to Dressing Change No Subjective Subjective Pt reports he has been wrapping his legs at home - pt has no complaints of pain in BLE Wound Left Lower Leg Wound Type Stasis Ulcer Wound Bed Appearance Yellow,Edematous Percentage Granulated (%) 100 Wound Margins Description Indistinct Surrounding Tissue Appearance Edematous Edema Appearance Stretched Looking,Open Sores Wound Drainage Description Serous Drainage Amount Small Drainage Odor Slight Odor Dressing Status Open to Air Primary Dressing Unna Boot Wound Secondary Dressing Type Gauze Roll/Wrap,Adhering Gauze Roll,Unna Boot Wound Debridement Amount of Tissue Minimal Removed Dressing Change Date 02/07/22 Right Lower Leg Wound Type hyperkerototic skin Percentage Granulated (%) 100 Wound Drainage Description None Drainage Amount None Primary Dressing Unna Boot Wound Secondary Dressing Type Gauze Roll/Wrap,Adhering Gauze Roll,Unna Boot Dressing Change Date 02/07/22 Plan/Recommendation Comment Pt to continue w/ UNNA boot - pt instructed on home care of BLE and acquisition on unna boots and edema reducing products - unna boots to be changed in 72 hours - nursing to follow for wound care needs Eval Complexity Eval Charge Codes 80055 - Low Complexity G-codes PT Current Status Other PT/OT Status PT Current Status Modifier CN-At least 100% impaired, limited or restricted PT Goal Status Other PT/OT Status PT Goal Status Modifer CN-At least 100% impaired, limited or restricted PHYSICIAN CERTIFICATION: I certify the specified therapy services for Johnathon Ellsworth are required, authorized, and reviewed every 30 days.
--- NOTE | 2022-02-07 14:40 | PC.NURSE ---
Spoke with Dr. Cook about pts manual BP is 85/52 pulse rate 82. He declined fluids or bolus at this time.
--- NOTE | 2022-02-07 14:52 | PC.NURSE ---
rounded on patient. patient up in chair, appears to be in food spirits. no concerns or questions. assisted with manual bp. noted lower blood pressure of about 84/52, non symptomatic of lower bp. patient requested ice and water which was retrieved. encouraged him to ring out with any needs or concerns.
--- NOTE | 2022-02-07 15:47 | PC.NURSE ---
Dr. Cook notified of manual BP of 85/52, NNO. Pt asymptomatic. Unna boots applied to ble per pt.
[2022-02-07 17:23] LABS: POC Glucose,Bedside 255 (70-110)
--- NOTE | 2022-02-07 18:24 | PC.NURSE ---
Pt a/o x 4. NAD. No complaints at this time. VSS. Unna boots in place to ble. Meds given per mar. No changes since prior assessment. FS-achs and high intensity ssi. CB in reach. Remains on 3 L NC.
[2022-02-08] VITALS: BP 111/52; PULSE 64; RESP 20; TEMP 36.4; O2SAT 100
[2022-02-08 02:15] LABS: POC Glucose,Bedside 303 (70-110)
[2022-02-08 03:45] VITALS: PULSE 60
[2022-02-08 04:00] VITALS: BP 102/56; PULSE 69; RESP 20; TEMP 36.6; O2SAT 99
[2022-02-08 05:00] VITALS: PULSE 60
--- NOTE | 2022-02-08 05:26 | PC.NURSE ---
Patient a&ox4. Patient remains on 3l nc sats above 90%. Unna boots noted. Patient remains up to chair throughout night states he breaths better. Bleachable erythema noted to bottom, educated patient on importance of moving around, patient refuses to get in bed.
[2022-02-08 06:08] VITALS: PULSE 71; PULSE 73; O2SAT 97
[2022-02-08 06:38] LABS: Eosinophils % 0.3 % (0.1-12.0); Hematocrit 31.7 % (42.0-52.0); Hemoglobin 9.2 g/dL (14.1-18.0); Lymphocytes # 0.4 K/mm3 (0.7-4.5); Lymphocytes % 2.7 % (10-50); Mean Corpuscular HGB Conc 28.9 g/dL (31.8-35.4); Mean Corpuscular Volume 79.5 fl (80-94); Mean Platelet Volume 9.3 fl (7.4-10.4); Monocytes # 0.4 K/mm3 (0.1-1.0); Neutrophils # 12.1 K/mm3 (1.8-7.8); Neutrophils % 93.9 % (37.0-80.0); Platelet Count 277 K/mm3 (142-424); Red Blood Count 3.98 M/mm3 (4.60-6.20); Red Cell Distribution Width 16.8 % (11.5-17.5); White Blood Count 12.9 K/mm3 (4.8-10.8)
[2022-02-08 06:43] LABS: POC Glucose,Bedside 255 (70-110)
[2022-02-08 06:46] LABS: Chloride 98 mmol/L (98-107)
[2022-02-08 06:47] LABS: Potassium 4.6 mmoL/L (3.5-5.1); Sodium 133 mmol/L (136-145)
[2022-02-08 06:49] LABS: Blood Urea Nitrogen 61 mg/dl (9-20); Creatinine Clearance Estimated 41 mL/min (50-200); Estimated Glomerular Filt Rate 29 ml/min (>60); GFR (African American) 35 ML/MIN (>60)
[2022-02-08 06:50] LABS: Alanine Aminotransferase 17 U/L (12-78); Albumin Level 3.1 g/dl (3.5-5.0); Albumin/Globulin Ratio 1.1 (1.1-1.8); Alkaline Phosphatase 74 U/L (38-126); Anion Gap 9.6 mEq/L (5-15); Aspartate Amino Transferase 35 U/L (17-59); Calcium 8.2 mg/dl (8.4-10.2); Carbon Dioxide 30 mmol/L (22.0-30.0); Globulin 2.9 g/dL (1.3-3.2); Glucose 257 mg/dl (74-100); MANUAL DIFFERENTIAL MANUAL DIFFERENTIAL (MANUAL DIFF)
[2022-02-08 07:01] LABS: Bilirubin,Total < 0.1 mg/dl (0.2-1.3)
[2022-02-08 07:08] LABS: Anisocytosis 1+; Hypochromasia 1+; Lymphocytes % 5 % (10-50); Monocytes % 2 % (2-9); Neutrophils % 93 % (42-76); Platelet Estimate Normal; Total Cells Counted 100
[2022-02-08 08:00] VITALS: BP 122/50; PULSE 77; PULSE 80; RESP 16; TEMP 36.3; O2SAT 99
--- NOTE | 2022-02-08 08:52 | HMH.DCSUM ---
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 We have been seen patient in our office to adjust his diuretics and he had been improving with new diuretic regimen in spite of a couple weeks where he was noncompliant with the medication because the pharmacy never told me they had my medicine. He was improving vis-?-vis fluid output when EMS was called yesterday by his because he was hypoxic and nonresponsive. According to EMS they arrived to find empty oxygen tanks and the nasal cannula device nowhere near the patient's face. The patient this morning is surprised to hear this and states that his was just changing over the tanks. In the ER he was evaluated with x-ray and laboratory studies. X-ray showed new pneumonic infiltrate with trace pleural effusion and labs showed mild leukocytosis. Also had other evidence with high procalcitonin levels of bacterial infection and he was admitted to hospital for IV antibiotics, restarting oxygen therapy and further addressing of his metabolic issues. This morning the patient is upright in his chair and is alert, oriented x3 and feels much better. Hospital Course Hospital Course: Mr. Ellsworth is a 81-year-old male with multiple comorbidities and very poor health with mixed compliance/adherence to medical regimen. Initially presented with hypoxia to the ER. Concern for volume overload versus pneumonia. Started on broad-spectrum antibiotics and diuresis per his home regimen. Over the course of his admission, patient has felt much better and been able to wean down to 3 L nasal cannula oxygen. His home regimen is 2 to 3 L as he needs (pretty much continuously). During admission, echocardiogram obtained showing preserved ejection fraction. This appears to be ongoing diastolic dysfunction. Given improvement in respiratory status, remaining afebrile and hemodynamically stable. Patient is wanting to go home. He is not far from his baseline chronic status. Recommend continuing antibiotics for total of 7 days to treat for community-acquired pneumonia. Encouraged compliance with home heart failure regimen, especially diuretics. Of note, during admission he did not receive his narcotics or gabapentin. He is prescribed very high doses of narcotics for which I was pleased to not see him have any withdrawal from during admission given the concern that he does not take them regularly. Additionally his gabapentin is inappropriately dosed in the outpatient setting for his level of renal dysfunction. I have encouraged holding these medications until he can discuss them with his pain management provider. Medically stable for discharge home. Already has home oxygen. Objective Vital signs: Temp Pulse Resp BP Pulse Ox 97.8 F 71 20 102/56 L 97 02/08/22 04:00 02/08/22 06:08 02/08/22 04:00 02/08/22 04:00 02/08/22 06:08 Narrative: - Constitutional no acute distress, morbidly obese, chronically ill appearing, disheveled - *Routine HEENT Exam Head: Present: normocephalic Eye: Present: EOMI, PERRL ENT: Present: mucous membranes moist - *Routine Neck Exam Present: supple. Absent: lymphadenopathy - *Routine Respiratory Exam Present: rales, interval improvement in Crackles in left base. - *Routine Cardiovascular Exam Present: RRR, Heart exam difficult because of his obesity. - *Routine Abdominal Exam Present: soft. Absent: tenderness, Morbidly obese - *Routine Extremities Exam Present: edema. Absent: cyanosis, clubbing. Edema looks better than baseline. His extremities are thickened, keratotic, flaking with yellow skin changes and brawny woody layers of skin
--- NOTE | 2022-02-08 10:12 | HMH.PHAINT ---
DISCHARGE MEDICATION COUNSELING PROVIDED. DISCUSSED SHORT-COURSE LEVAQUIN THERAPY (ANTIBIOTIC, TAKE Q48H FOR 8 DAYS, START TONIGHT, WATCH FOR UPSET STOMACH/DIARRHEA, SEPARATE FROM IRON TABLET BY AT LEAST 2 HOURS) AND DUONEBS (PATIENT HAS USED BEFORE, FOR BREATHING/SHORTNESS OF BREATH, USE TWICE DAILY NEEDED FOR SOB). TOLD PATIENT THAT DR BUTLER WANTS HIM TO HOLD PAIN MEDICINES UNTIL HE FOLLOWS UP WITH THE PAIN CLINIC DUE TO RENAL FUNCTION. PATIENT VERBALIZED NO QUESTIONS AT THIS TIME.
--- NOTE | 2022-02-08 10:25 | PC.NURSE ---
pt waiting on ride.
--- NOTE | 2022-02-08 11:31 | PC.NURSE ---
pt taken to vehicle in wheelchair by staff
--- NOTE | 2022-02-11 14:56 | CARE MANAGER ---
Spoke with patient family for post-discharge phone interview, she states that patient is doing well. She states he still has some cough but is improving. No further issues noted.
== END 2022-02-08 11:30 | disposition home or self-care (01) ==
LOC: ER 20:34 → 2ND 21:57
PROVIDERS: Emergency Medicine; Admitting Provider Internal Medicine Adolescent Medicine; Emergency Provider Emergency Medicine; PCP Internal Medicine Adolescent Medicine; Visit Provider Internal Medicine Adolescent Medicine
DX: J18.9 Pneumonia, unspecified organism (principal); E11.9 Type 2 diabetes mellitus without complications; Z79.4 Long term (current) use of insulin; Z79.899 Other long term (current) drug therapy; I89.0 Lymphedema, not elsewhere classified; Z91.14 Patient's other noncompliance with medication regimen; Z91.19 Patient's noncompliance with other medical treatment and regimen; I50.33 Acute on chronic diastolic (congestive) heart failure; Z99.81 Dependence on supplemental oxygen; I48.91 Unspecified atrial fibrillation; I11.0 Hypertensive heart disease with heart failure; I49.5 Sick sinus syndrome; I42.9 Cardiomyopathy, unspecified; L03.115 Cellulitis of right lower limb; L03.116 Cellulitis of left lower limb; Z95.0 Presence of cardiac pacemaker; Z20.822 Contact with and (suspected) exposure to COVID-19
CPT/HCPCS: G0378; 36415; 71045; 80048; 80053; 81001; 82150; 82803; 82962; 83605; 83690; 83735; 83880; 84145; 84484; 85007; 85025; 85651; 86140; 87040; 87070; 87086; 87205; 93005; 93306; 94640; 94761; 97161; 99285; C9803; J1956; J3370; U0003; U0005

== ENCOUNTER 2022-02-12 10:23 | Inpatient (IN) | payer MEDICARE, SELFPAY ==
[2022-02-12] VITALS (10 sets, daily range): BP systolic 124–151; BP diastolic 48–74; PULSE 61–78; RESP 17–20; TEMP 36.6–37.1; O2SAT 94–98; BMI 40.4; BMI 44.7
--- NOTE | 2022-02-12 10:26 | XR_ITS ---
FINAL REPORT CLINICAL HISTORY: sob, cough COMPARISON: 02/06/2022 FINDINGS: SINGLE-VIEW CHEST There is cardiomegaly. Left subclavian pacer is identified. There is pulmonary vascular congestion, stable. There are persistent bibasilar pulmonary opacities, may represent atelectasis or pneumonia. There is no pneumothorax. IMPRESSION: Persistent bibasilar opacities, may represent atelectasis or pneumonia. Reviewed, Interpreted and Dictated by Gopi Zhu III, MD Transcribed by Kyra Bennett Authenticated and [facility]
--- NOTE | 2022-02-12 10:28 | ECG_ITS ---
APPROVED REPORT Exam: Resting ECG HR:76 bpm ECG Measurements Heart Rate 76 AXES MD 220 P 71 QRSd 118 QRS 56 QT 380 T 48 QTc 410 Conclusion SINUS RHYTHM WITH FIRST DEGREE AV BLOCK LOW QRS VOLTAGE IN PRECORDIAL LEADS [QRS DEFLECTION < 1.0 mV IN CHEST LEADS] MODERATE INTRAVENTRICULAR CONDUCTION DELAY [110+ ms QRS DURATION] ABNORMAL ECG UNCONFIRMED REPORT Electronically signed by : Rodrigo Cook MD 02/12/2022 13:49:21
--- NOTE | 2022-02-12 10:37 | PC.NURSE ---
CLAUDE LERMA at for patient eval
--- NOTE | 2022-02-12 10:40 | PC.NURSE ---
radiology at BS for portable chest xr
--- NOTE | 2022-02-12 10:42 | HMH.EDGENADL ---
ED Disposition Clinical Impression: CHF (congestive heart failure), YENIFER (acute kidney injury), Volume overload Disposition: Admitted As Inpatient Condition on Discharge: Fair Referrals: Nicholas Eaton MD [Primary Care Provider] - - Critical Care Critical Care Time: No Attestation: On 02/12/22, the high probability of a clinically significant, sudden or life threatening deterioration of the following system(s) required my full and direct attention, intervention and personal management. The time I documented below is in addition to time spent performing reported procedures but includes the following listed in this critical care notation. Medical Decision Making - [place] Inquiry Pt receiving controlled substance: No Vital Signs: 02/12/22 10:36 Pulse Rate 77 Blood Pressure 151/64 H Blood Pressure Source Automatic Cuff Blood Pressure Position Sitting 02 Sat by Pulse Oximetry 94 L Oxygen Delivery Method Nasal Cannula Oxygen Flow Rate (LPM) 3 - Lab Data Lab Results 02/12/22 10:48: SARS-CoV-2 (PCR) Not detected, Influenza A Untype (PCR) Not detected, Influenza Type B (PCR) Not detected 02/12/22 11:10: WBC 10.3, RBC 3.59 L, Hgb 8.1 L, Hct 28.5 L, MCV 79.3 L, MCH 22.4 L, MCHC 28.3 L, RDW 17.0, Plt Count 183, MPV 9.6, Neut % (Auto) 86.5 H, Lymph % (Auto) 6.4 L, Toole % (Auto) 5.3, Eos % (Auto) 1.5, Baso % (Auto) 0.3, Neut # (Auto) 8.9 H, Lymph # (Auto) 0.7, Toole # (Auto) 0.6, Eos # (Auto) 0.2, Baso # (Auto) 0.0, Total Counted 100, Neutrophils % (Manual) 91 H, Lymphocytes % (Manual) 7 L, Monocytes % (Manual) 2, Platelet Estimate Normal, Hypochromasia 1+, Anisocytosis 1+ 02/12/22 11:10: Sodium 131 L, Potassium 4.7, Chloride 98, Carbon Dioxide 26, Anion Gap 11.7, BUN 95 H, Creatinine 6.40 H, Estimated Creat Clear 16, Estimated GFR 8 L*, Est GFR ( Amer) 10 L*, Glucose 304 H, Calcium 7.3 L, Total Bilirubin < 0.1 L, AST 22, ALT 23, Alkaline Phosphatase 69, Troponin I 0.08 H, Total Protein 5.5 L, Albumin 2.8 L, Globulin 2.7, Albumin/Globulin Ratio 1.0 L 02/12/22 11:10: NT-Pro-B Natriuret Pep 4120 H 02/12/22 12:00: Lactate 0.9 Result diagrams: 02/12/22 11:10 02/12/22 11:10 Orders (Tests/Meds): ED MEDICATIONS Generic Name Dose Route Start Last Admin Trade Name Freq PRN Reason Stop Dose Admin Azithromycin 500 mg/ Sodium 250 mls @ 250 mls/hr 02/12/22 12:00 02/12/22 12:25 Chloride IV 02/26/22 11:59 250 mls/hr Q24H SHAE Administration Ceftriaxone Sodium 1 gm/ 50 mls @ 100 mls/hr 02/12/22 12:00 02/12/22 12:05 Sodium Chloride IV 02/26/22 11:59 100 mls/hr Q24H SHAE Administration Discontinued Medications Generic Name Dose Route Start Last Admin Trade Name Freq PRN Reason Stop Dose Admin Albuterol/Ipratropium 3 ml 02/12/22 11:51 02/12/22 11:52 Ipratropium/Albuterol 3 Ml Neb IH 02/12/22 11:52 3 ml ONCE ONE Administration Bumetanide 2 mg 02/12/22 11:43 02/12/22 12:23 Bumetanide 1mg/4ml Vial IV 02/12/22 11:44 2 mg ONCE ONE Administration ORDERS Category Date Time Status Troponin I Q3H Lab 02/12/22 13:30 Ordered Troponin I Q3H Lab 02/12/22 16:30 Ordered Blood Culture Stat Micro 02/12/22 12:00 Received - ECG Data Tracing #1 Independently reviewed by me, rate is 76, regular, QTc 410, no significant ST elevation in anatomical contiguous leads. Medical Decision Narrative: In summary this is a 81-year-old with complex past medical history, recent mission for pneumonia presents emergency department for acute on chronic shortness of breath. Patient is hemodynamically stable upon arrival, afebrile, no tachypnea. Patient has oxygen requirement of 4 L which is slightly increased from his baseline. Differential diagnosis includes worsening CHF exacerbation, worsening pneumonia, among others. Work-up will be conducted with hematologic labs, chest x-ray, EKG. work-up is reviewed by me, severe kidney injury from baseline without evidence of hyperkalemia. 2 mg of
--- NOTE | 2022-02-12 10:50 | PC.NURSE ---
Covid swab sent to lab; pt given a warm blanket and family is at BS. Call light within reach
[2022-02-12 10:55] LABS: Coronavirus 19, PCR Not Detected (NotDetected); Influenza A, PCR Not Detected (NotDetected); Influenza B, PCR Not Detected (NotDetected)
--- NOTE | 2022-02-12 11:00 | PC.NURSE ---
MICHELLE Rae at to start IV
[2022-02-12 11:25] LABS: Basophils % 0.3 % (0.1-2.0); Chloride 98 mmol/L (98-107); Eosinophils # 0.2 K/mm3 (0.0-0.4); Eosinophils % 1.5 % (0.1-12.0); Hematocrit 28.5 % (42.0-52.0); Hemoglobin 8.1 g/dL (14.1-18.0); Lymphocytes # 0.7 K/mm3 (0.7-4.5); Lymphocytes % 6.4 % (10-50); Mean Corpuscular HGB Conc 28.3 g/dL (31.8-35.4); Mean Corpuscular Hemoglobin 22.4 pg (27.0-31.2); Mean Corpuscular Volume 79.3 fl (80-94); Mean Platelet Volume 9.6 fl (7.4-10.4); Monocytes # 0.6 K/mm3 (0.1-1.0); Monocytes % 5.3 % (1.7-9.3); Neutrophils # 8.9 K/mm3 (1.8-7.8); Neutrophils % 86.5 % (37.0-80.0); Platelet Count 183 K/mm3 (142-424); Potassium 4.7 mmoL/L (3.5-5.1); Red Blood Count 3.59 M/mm3 (4.60-6.20); Sodium 131 mmol/L (136-145); White Blood Count 10.3 K/mm3 (4.8-10.8)
[2022-02-12 11:27] LABS: Alanine Aminotransferase 23 U/L (12-78); Alkaline Phosphatase 69 U/L (38-126); Aspartate Amino Transferase 22 U/L (17-59); Creatinine Clearance Estimated 16 mL/min (50-200); Estimated Glomerular Filt Rate 8 ml/min (>60); GFR (African American) 10 ML/MIN (>60); MANUAL DIFFERENTIAL MANUAL DIFFERENTIAL (MANUAL DIFF)
[2022-02-12 11:28] LABS: Albumin Level 2.8 g/dl (3.5-5.0); Anion Gap 11.7 mEq/L (5-15); Calcium 7.3 mg/dl (8.4-10.2); Carbon Dioxide 26 mmol/L (22.0-30.0); Globulin 2.7 g/dL (1.3-3.2); Glucose 304 mg/dl (74-100); Total Protein,Serum 5.5 g/dl (6.3-8.2)
[2022-02-12 11:37] LABS: NT Pro Brain Natriuretic Pep. 4120 pg/mL (0-450)
[2022-02-12 11:40] LABS: Troponin I 0.08 ng/ml (0.00-0.034)
[2022-02-12 11:45] LABS: Bilirubin,Total < 0.1 mg/dl (0.2-1.3)
[2022-02-12 11:46] LABS: Blood Urea Nitrogen 95 mg/dl (9-20)
--- NOTE | 2022-02-12 11:46 | PC.NURSE ---
Lab called critical results of BUN 95 and Creatnine of 6.4
--- NOTE | 2022-02-12 11:52 | PC.NURSE ---
Called Dr. Rocha office, Davis advised he had just stepped into a room and she would have him call us back.
[2022-02-12 11:54] LABS: Anisocytosis 1+; Hypochromasia 1+; Lymphocytes % 7 % (10-50); Monocytes % 2 % (2-9); Neutrophils % 91 % (42-76); Platelet Estimate Normal; Total Cells Counted 100
--- NOTE | 2022-02-12 12:00 | PC.NURSE ---
speaking with Dr. Eaton
--- NOTE | 2022-02-12 12:08 | PC.NURSE ---
Called [facility] for possible transfer to [facility]. Spoke with Roma in the call center and gave all patient information.
--- NOTE | 2022-02-12 12:17 | PC.NURSE ---
Roma reports their are currently no beds at [facility] and he's being put on the wait list. CLAUDE LERMA aware and has asked me to call [facility]
--- NOTE | 2022-02-12 12:21 | PC.NURSE ---
Called radiology and spoke with Meghan to have an imaging disc burned for this patient.
--- NOTE | 2022-02-12 12:28 | PC.NURSE ---
called back and is speaking with our ER MD, Dr. John at this time
--- NOTE | 2022-02-12 12:30 | PC.NURSE ---
PT IS CURRENTLY ON WAITING LIST
--- NOTE | 2022-02-12 12:32 | PC.NURSE ---
UPDATED PT ON TRYING TO FIND HOSP TO ACCEPT
[2022-02-12 12:48] LABS: Lactic Acid 0.9 mmol/L (0.7-2.1)
--- NOTE | 2022-02-12 12:56 | PC.NURSE ---
called [facility] they will call back with hospitalist
--- NOTE | 2022-02-12 13:16 | PC.NURSE ---
speaking with Dr. Hanley from [facility]
--- NOTE | 2022-02-12 13:22 | PC.NURSE ---
Multiple facilities have placed pt on their wait list for admission but they are all at capacity at this time. Dr. Eaton paged at this time.
--- NOTE | 2022-02-12 13:25 | PC.NURSE ---
updated and pt on POC.
--- NOTE | 2022-02-12 13:29 | PC.NURSE ---
Spoke with Lizet in care management regarding admission.
--- NOTE | 2022-02-12 13:34 | PC.NURSE ---
Updated and pt on POC and that he would be admitted to [facility] until a bed became available at another facility. Called dietary and ordered pt a cardiac no sodium tray. No other needs at this time
--- NOTE | 2022-02-12 13:42 | PC.NURSE ---
lab at bedside, dietary also brought pt tray at this time
--- NOTE | 2022-02-12 13:48 | PC.NURSE ---
Dr. Eaton called and advised he was awaiting a call back from [facility] to speak with them about the patient and transfer to their facility.
--- NOTE | 2022-02-12 14:07 | PC.NURSE ---
DR BUTLER CALLED PT IS ON A WAIT LIST AT [facility]. PT IS GONNA BE ADMITTED HERE IN [place]OPES FOR TRANSFER TONIGHT OR TOMORROW . DR BUTLER WANTS A REPEAT BMP AT 5 PM TODAY
--- NOTE | 2022-02-12 14:13 | PC.NURSE ---
ER at speaking with patient and family
--- NOTE | 2022-02-12 14:14 | PC.NURSE ---
PT HAS AGREED FOR A TORIBIO
[2022-02-12 14:22] LABS: Troponin I 0.07 ng/ml (0.00-0.034)
--- NOTE | 2022-02-12 14:58 | PC.NURSE ---
report called to floor
--- NOTE | 2022-02-12 15:08 | PC.NURSE ---
Pt arrived to the floor at this time
--- NOTE | 2022-02-12 17:44 | HMH.HP ---
*Admission Date: 02/12/22 *Chief complaint: SOA, weakness, anuria *History of present illness: Mr. Ellsworth is a 81-year-old male with complex medical history including heart failure with preserved ejection fraction on diuretics, CKD, chronic hypoxemic respiratory failure, COPD, and diabetes who presented to the ED for evaluation of acute on chronic shortness of breath. Patient is on 2 L nasal cannula at baseline however due to worsening shortness of breath and bilateral lower extremity swelling and inability to void for the last 2 days, presented for evaluation and need for increased oxygen. Work-up in the ER with labs, chest imaging showed volume overload, bibasilar atelectasis versus pneumonia versus volume overload, and significant worsening of kidney function. Numerous attempts made to transfer patient given kidney dysfunction and anuria. Unable to transfer at this time. Patient has oxygen requirement of 4 L which is increased from his baseline. 2 mg of IV Bumex was administered without response in ER. Abebe catheter placed once he arrived to the floor with only 150 cc of urine output. Treated with broad-spectrum antibiotics for community-acquired pneumonia. Has remained afebrile however, no significant leukocytosis. Evaluation of patient after clinic, he is more fatigued than last admission. Has significantly worse edema. Is stable on 3 L nasal cannula. Remains afebrile and hemodynamically stable. Complaining of pain (all over). Denies nausea, vomiting, diarrhea. Reports he has been drinking about 12 to 16 pints of fluid a day since discharge home. Also reports compliance with home medication regimen. [facility] History I have reviewed the patient's past medical history: Yes Medical History: Reports:: Asthma, Atrial Fibrillation, Cardiomyopathy, Congestive Heart Failure, Chronic Obstructive Pulmonary Disease (COPD), Congenital Heart Disease, Coronary Artery Disease, Diabetes Mellitus Type 2, Gastroesophageal Reflux Disease(GERD), Gastrointestinal Bleed, Home Oxygen, Hyperlipidemia, Hypertension, Internal Pacemaker, Lung Disease, MRSA, Myocardial Infarction, Palpitations, Renal Disease, Renal Insufficiency, Seizures, Transient Ischemic Attacks (TIA) Denies:: Cancer, Diabetes Mellitus Type 1 *Have you ever received a pneumonia vaccine?: No *Have you received a flu vaccine this season?: No Other Medical History: Reports: Anemia, Arthritis, Hypothyroidism, Other. Denies: Blood Transfusion Reaction Laterality Cases: Right: Total Hip Replacement Other Surgeries: Yes: Appendectomy, Cancer Surgery (SKIN), Cardiac Catheterization, Colonoscopy, Coronary Stent, EGD, Pacemaker, Other Amputation: No Fractures: No - *Social History Smoking Status: Never smoker Tobacco Type: cigarettes # Packs/Day (cigarettes): 1 Alcohol Intake: never Alcohol Intake Frequency:: a few times a week Substance Use Type: denies use *Occupational Status:: retired Housing: house Household Members: spouse *Travel in the last 8 weeks: None Family Hx:: Unable to obtain Review of Systems - Review of Systems Review of systems:: pertinent systems reviewed and negative unless documented below (14 point review of systems performed, pertinent positives and negatives as per HPI) Meds Home Medications Medication Instructions Recorded Confirmed Type Atorvastatin Calcium [Lipitor 40mg 40 mg PO HS 30 Days #30 tab 10/20/20 02/12/22 Rx Tab] Ferrous Sulfate [Iron] 325 mg PO DAILY 30 Days #30 tab 10/20/20 02/12/22 Rx Montelukast Sodium [Singulair 10mg 10 mg PO HS 30 Days #30 tab 10/20/20 02/12/22 Rx tablet] allopurinoL [Allopurinol 300mg 300 mg PO DAILY 30 Days #30 tab 10/20/20 02/12/22 Rx tablet] Bumetanide [Bumex 1mg tablet] 2 mg PO DAILY 01/01/21 02/12/22 History Loratadine [Claritin 10mg 10 mg PO DAILY 01/02/21 02/12/22 History Tablet] Metoprolol Tartrate [Lopressor 100 100 mg PO DAILY 01/02/21 02/12/22 History mg Tablets] lisinopriL [Lisin
[2022-02-12 18:03] LABS: Chloride 98 mmol/L (98-107); Potassium 4.9 mmoL/L (3.5-5.1); Sodium 130 mmol/L (136-145)
[2022-02-12 18:06] LABS: Anion Gap 12.9 mEq/L (5-15); Calcium 7.5 mg/dl (8.4-10.2); Carbon Dioxide 24 mmol/L (22.0-30.0); Creatinine Clearance Estimated 9 mL/min (50-200); Estimated Glomerular Filt Rate 9 ml/min (>60); GFR (African American) 11 ML/MIN (>60); Glucose 353 mg/dl (74-100)
[2022-02-12 18:18] LABS: Blood Urea Nitrogen 100 mg/dl (9-20)
[2022-02-12 18:49] LABS: Troponin I 0.07 ng/ml (0.00-0.034)
--- NOTE | 2022-02-12 19:55 | PC.NURSE ---
Spoke with Blaise from pharmacy on mixing and administering Brumetanide drip.
--- NOTE | 2022-02-12 20:12 | PC.WOUNDNOTE ---
right foot right leg right foot left foot left leg left leg
--- NOTE | 2022-02-12 21:36 | PC.NURSE ---
[facility] called for an update on patient, stated they are working on a bed for him, will call back in 4-5 hours for an update.
[2022-02-13] VITALS: PULSE 70
[2022-02-13 00:49] LABS: POC Glucose,Bedside 346 (70-110)
--- NOTE | 2022-02-13 02:36 | PC.NURSE ---
Received phone call from Alysia at [facility] with bed assignment @ 01:13. Pt will be transferred to [address], bed will be assigned when he arrives at registration. Called Report to Masha at [address] [place] [address] @ 02:02. Called [facility] for transfer @ 02:15, awaiting transfer at this time.
--- NOTE | 2022-02-13 03:23 | PC.NURSE ---
PT WAS D/C TO DIFFERENT FACILITY PER [facility] @ THIS TIME
--- NOTE | 2022-02-13 11:07 | HMH.DCSUM ---
General - General Admission date:: 02/12/22 Discharge date: 02/13/22 HPI HPI: Mr. Ellsworth is a 81-year-old male with complex medical history including heart failure with preserved ejection fraction on diuretics, CKD, chronic hypoxemic respiratory failure, COPD, and diabetes who presented to the ED for evaluation of acute on chronic shortness of breath. Patient is on 2 L nasal cannula at baseline however due to worsening shortness of breath and bilateral lower extremity swelling and inability to void for the last 2 days, presented for evaluation and need for increased oxygen. Work-up in the ER with labs, chest imaging showed volume overload, bibasilar atelectasis versus pneumonia versus volume overload, and significant worsening of kidney function. Numerous attempts made to transfer patient given kidney dysfunction and anuria. Unable to transfer at this time. Patient has oxygen requirement of 4 L which is increased from his baseline. 2 mg of IV Bumex was administered without response in ER. Abebe catheter placed once he arrived to the floor with only 150 cc of urine output. Treated with broad-spectrum antibiotics for community-acquired pneumonia. Has remained afebrile however, no significant leukocytosis. Evaluation of patient after clinic, he is more fatigued than last admission. Has significantly worse edema. Is stable on 3 L nasal cannula. Remains afebrile and hemodynamically stable. Complaining of pain (all over). Denies nausea, vomiting, diarrhea. Reports he has been drinking about 12 to 16 pints of fluid a day since discharge home. Also reports compliance with home medication regimen. Hospital Course Hospital Course: 81-year-old male recently admitted to [facility] with CHF exacerbation, volume overload versus pneumonia. Had improved clinically and was discharged home on baseline oxygen and medication regimen. 3 presents 4 days after discharge with significant weight gain (13 kg), worsening edema, increased oxygen requirement from home 2 L, and scantly productive cough of clear sputum. Labs and clinical exam consistent with volume overload. This admission however he has significant worsening in kidney function with acute on chronic kidney failure. Has been essentially an uric for the past 36 hours. In the ER received 2 mg of Bumex x1, produced about 200 cc of urine total. Strong concern that patient needs higher level of care with the ability to possibly dialyze given his kidney dysfunction and volume status. Numerous hospitals contacted, currently on a wait list at [facility], [place], and [facility]. Problems addressed as follows: Acute on chronic hypoxemic respiratory failure Acute on chronic CHF (diastolic) Volume overload - Trial of diuresis with Bumex gtt. Responded well to diuretics at last admission. Given increased weight, edema, chest imaging, clinically supports trial of diuresis. Close monitoring of kidney function electrolytes in light of kidney dysfunction. Concerned that current dysfunction is related to cardiorenal syndrome. - was having some UOP before transfer. Concern that if function worsens however, patient will necessitate dialysis given severity of current kidney injury. Patient transferred for repeat labs obtained -Echo obtained just last week showing preserved ejection fraction, diastolic dysfunction, dilated right ventricle. YENIFER on CKD 3 Anuria/Oliguria -Patient has had very little urine output. Significant worsening in creatinine and kidney function since discharge on Friday. Labs had shown improvement in response to diuresis during last admission. Abebe catheter in place for strict I's and O's. Bed available at [facility] in [place] overnight. Transferred in the middle of the night to higher level of care. Appreciate their assistance in management of this complex patient. Objective Vital signs: Temp Pulse Resp BP Pulse Ox 98.8 F 70 17 138/61 9
== END 2022-02-13 03:23 | disposition short-term general hospital (02) | DRG 291 ==
LOC: ER 13:31 → 2ND 14:01
PROVIDERS: Admitting Provider Internal Medicine Adolescent Medicine; Emergency Provider Emergency Medicine; PCP Internal Medicine Adolescent Medicine; Visit Provider Internal Medicine Adolescent Medicine
DX: I13.0 Hypertensive heart and chronic kidney disease with heart failure and stage 1 through stage 4 chronic kidney disease, or unspecified chronic kidney disease (principal); I50.33 Acute on chronic diastolic (congestive) heart failure; J96.01 Acute respiratory failure with hypoxia; J18.9 Pneumonia, unspecified organism; Z68.41 Body mass index [BMI] 40.0-44.9, adult; E87.1 Hypo-osmolality and hyponatremia; J96.11 Chronic respiratory failure with hypoxia; J44.0 Chronic obstructive pulmonary disease with (acute) lower respiratory infection; I42.9 Cardiomyopathy, unspecified; I25.10 Atherosclerotic heart disease of native coronary artery without angina pectoris; K21.9 Gastro-esophageal reflux disease without esophagitis; Z99.81 Dependence on supplemental oxygen; E78.5 Hyperlipidemia, unspecified; Z95.0 Presence of cardiac pacemaker; I25.2 Old myocardial infarction; E03.9 Hypothyroidism, unspecified; Z96.641 Presence of right artificial hip joint; Z85.828 Personal history of other malignant neoplasm of skin; Z86.73 Personal history of transient ischemic attack (TIA), and cerebral infarction without residual deficits; Z95.5 Presence of coronary angioplasty implant and graft; Z79.4 Long term (current) use of insulin; E11.22 Type 2 diabetes mellitus with diabetic chronic kidney disease; E11.65 Type 2 diabetes mellitus with hyperglycemia; D63.1 Anemia in chronic kidney disease; Z79.01 Long term (current) use of anticoagulants; Z79.891 Long term (current) use of opiate analgesic; E66.01 Morbid (severe) obesity due to excess calories; N18.30 Chronic kidney disease, stage 3 unspecified
CPT/HCPCS: 36415; 51702; 71045; 80048; 80053; 82962; 83605; 83880; 84484; 85007; 85025; 87040; 87077; 87186; 93005; 93306; C9803; J0456; J0696; U0003; U0005

== ENCOUNTER 2022-02-25 11:02 | Outpatient (RCR) | payer MEDICARE, SELFPAY | END 2022-02-25 11:05 | disposition home or self-care (01) | LOC: PT 11:02 | PROVIDERS: PCP Internal Medicine Adolescent Medicine; Visit Provider Internal Medicine Adolescent Medicine | DX: I50.32 Chronic diastolic (congestive) heart failure (principal) | CPT/HCPCS: 97542 ==

== ENCOUNTER 2022-04-01 14:35 | Inpatient (IN) | payer MEDICARE, SELFPAY ==
[2022-04-01] VITALS (9 sets, daily range): BP systolic 93–138; BP diastolic 38–86; PULSE 71–78; RESP 20–24; TEMP 36.6–36.9; O2SAT 87–95; BMI 38.0; BMI 39.2
--- NOTE | 2022-04-01 14:40 | PC.NURSE ---
1440 ED MD MADE AWARE OF LOW B/P
--- NOTE | 2022-04-01 14:45 | XR_ITS ---
FINAL REPORT CLINICAL HISTORY: Dyspnea COMPARISON: February 12, 2022 FINDINGS: A single portable view of the chest was obtained. There is cardiomegaly with worsening pulmonary vascular congestion. The mediastinum is within normal limits. There is worsening bibasilar opacities, pneumonia versus atelectasis. The bony thorax is intact. IMPRESSION: Cardiomegaly with worsening pulmonary vascular congestion. Worsened bibasilar opacities, pneumonia versus atelectasis. Reviewed, Interpreted and Dictated by Gopi Zhu III, MD Transcribed by Carolina Randolph Authenticated and [facility]
--- NOTE | 2022-04-01 14:47 | PC.NURSE ---
ED MD AT BEDSIDE FOR EVALUATION
--- NOTE | 2022-04-01 14:48 | PC.NURSE ---
1440 PT O2SAT 72 ON ROOM AIR. O2 APPLIED PER NORMAL 2L/NC AT HOME INCREASED TO 87%. O2 INCREASED TO 4L/NC. O2 SAT INCREASED TO 95%
--- NOTE | 2022-04-01 14:49 | HMH.EDSOB ---
Discharge Plan Disposition Patient Disposition: Admitted as Observation Condition: Fair Chief Complaint: Weakness Prescriptions Prescriptions: No Action insulin NPH and regular human 100 unit/mL (70-30) suspension 30 unit SQ TID Rx Instructions: TAKE PER INSULIN PROTOCOL gabapentin 800 mg tablet 800 mg PO TID Hold Instructions: need to discuss dose reduction with pain clinic. Dose is inappropriate for renal impairment. Needs to reduce to 300TID or less. atorvastatin 40 MG tablet 40 mg PO HS 30 Days Qty: 30 2RF ferrous sulfate 325 MG tablet 325 mg PO DAILY 30 Days Qty: 30 2RF montelukast 10 MG tablet 10 mg PO HS 30 Days Qty: 30 2RF allopurinol 300 MG tablet 300 mg PO DAILY 30 Days Qty: 30 2RF bumetanide 1 MG tablet 2 mg PO DAILY metoprolol tartrate 100 MG tablet 100 mg PO DAILY loratadine 10 MG tablet 10 mg PO DAILY lisinopril 40 MG tablet 20 mg PO DAILY oxycodone 30 MG tablet 30 mg PO QIDP PRN (Reason: PAIN) Hold Instructions: Not taking during admission. Need to discuss dose decrease with pain clinic omeprazole 40 MG capsule,delayed release(DR/EC) 40 mg PO DAILY ipratropium-albuterol 3 ML solution for nebulization 3 ml IH TIDP PRN (Reason: Dyspnea) aspirin 81 MG tablet,delayed release (DR/EC) 81 mg PO DAILY Clinical Impressions Clinical Impression: Congestive heart failure, Renal insufficiency, Pulmonary edema cardiac cause, Hypoxia Discharge ED Provider: Kaley Templeton Resp/SOB HPI General Chief Complaint: Weakness Stated Complaint: CHF Time Seen by Provider: 04/01/22 14:49 Mode of Arrival: Wheelchair Source of Information: Patient and Spouse History of Present Illness The patient was sent to the emergency department by 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 He has had an increased oxygen requirement lately. His oxygen is usually at 2 L/min at home. Right now he is saturations are 94% on 5 L. He also complains of increased lower extremity swelling. He denies fevers. MD Complaint: shortness of breath Related Data Home Medications Medication Instructions Recorded Confirmed bumetanide 1 mg tablet 2 mg PO DAILY Diuretic 01/01/21 04/01/22 loratadine 10 mg tablet 10 mg PO DAILY Allergy symptoms 01/02/21 04/01/22 metoprolol tartrate 100 mg tablet 100 mg PO DAILY Hypertension 01/02/21 04/01/22 lisinopril 40 mg tablet 20 mg PO DAILY Hypertension 01/31/21 04/01/22 oxycodone 30 mg tablet 30 mg PO QIDP PRN PAIN 02/01/21 04/01/22 insulin human U-100 NPH-regulr 30 unit SQ TID Diabetes 03/26/21 04/01/22 70-30 mix 100 unit/mL subcutaneous susp gabapentin 800 mg tablet 800 mg PO TID Pain 01/01/22 04/01/22 omeprazole 40 mg capsule,delayed 40 mg PO DAILY acid reflux 02/07/22 04/01/22 release aspirin 81 mg tablet,delayed 81 mg PO DAILY Heart disease 02/12/22 04/01/22 release ipratropium 0.5 mg-albuterol 3 mg 3 ml inhalation TIDP PRN Dyspnea 02/12/22 04/01/22 (2.5 mg base)/3 mL nebulization soln Previous Rx's Medication Instructions Recorded allopurinol 300 mg tablet 300 mg PO DAILY gout 30 days #30 10/20/20 tabs atorvastatin 40 mg tablet 40 mg PO HS High cholesterol 30 10/20/20 days #30 tabs ferrous sulfate 325 mg (65 mg 325 mg PO DAILY Supplement 30 days 10/20/20 iron) tablet #30 tabs montelukast 10 mg tablet 10 mg PO HS Allergy symptoms 30 10/20/20 days #30 tabs Allergies Allergy/AdvReac Type Severity Reaction Status Date / Time morphine Allergy Severe Swelling Verified 04/01/22 14:18 of Lip/Tongue/Throat PFSH PFSH Medical History (Updated 04/01/22 @ 16:40 by Kaley Templeton MD) Cardiomyopathy Dyspnea Fatigue HHD (hypertensive heart disease) NYHA class 2 and ACC/AHA stage C acute on chronic systolic congestive heart failure Pacemaker Palpitations Family History (Updated 04/01/22 @ 15:15 b
--- NOTE | 2022-04-01 14:59 | PC.NURSE ---
XR AT BEDSIDE
[2022-04-01 15:09] LABS: Basophils # 0.1 K/mm3 (0-0.2); Basophils % 0.9 % (0.1-2.0); Eosinophils # 0.1 K/mm3 (0.0-0.4); Eosinophils % 1.9 % (0.1-12.0); Hematocrit 29.7 % (42.0-52.0); Hemoglobin 8.9 g/dL (14.1-18.0); Lymphocytes # 1.8 K/mm3 (0.7-4.5); Lymphocytes % 24.9 % (10-50); Mean Corpuscular Hemoglobin 24.2 pg (27.0-31.2); Mean Corpuscular Volume 80.9 fl (80-94); Mean Platelet Volume 8.6 fl (7.4-10.4); Monocytes # 0.4 K/mm3 (0.1-1.0); Monocytes % 4.9 % (1.7-9.3); Neutrophils % 67.3 % (37.0-80.0); Platelet Count 256 K/mm3 (142-424); Red Blood Count 3.67 M/mm3 (4.60-6.20); Red Cell Distribution Width 19.9 % (11.5-17.5); White Blood Count 7.4 K/mm3 (4.8-10.8)
[2022-04-01 15:15] LABS: Coronavirus 19, PCR Not Detected (NotDetected); Influenza A, PCR Not Detected (NotDetected); Influenza B, PCR Not Detected (NotDetected)
[2022-04-01 15:16] LABS: Alanine Aminotransferase 13 U/L (12-78); Albumin Level 2.4 g/dl (3.5-5.0); Albumin/Globulin Ratio 0.8 (1.1-1.8); Alkaline Phosphatase 105 U/L (38-126); Anion Gap 15.1 mEq/L (5-15); Aspartate Amino Transferase 18 U/L (17-59); Bilirubin,Total 0.2 mg/dl (0.2-1.3); Blood Urea Nitrogen 74 mg/dl (9-20); Calcium 7.1 mg/dl (8.4-10.2); Carbon Dioxide 23 mmol/L (22.0-30.0); Chloride 100 mmol/L (98-107); Creatinine Clearance Estimated 23 mL/min (50-200); Estimated Glomerular Filt Rate 14 ml/min (>60); GFR (African American) 17 ML/MIN (>60); Globulin 3.2 g/dL (1.3-3.2); Glucose 160 mg/dl (74-100); Potassium 5.1 mmoL/L (3.5-5.1); Sodium 133 mmol/L (136-145); Total Protein,Serum 5.6 g/dl (6.3-8.2)
[2022-04-01 15:18] LABS: Activated Partial Thrombo Time 32.8 seconds (22.8-30.6); INR 1.21 (0.9-1.1); Prothrombin Time 12.9 seconds (10.1-12.5)
--- NOTE | 2022-04-01 15:23 | PC.NURSE ---
Teagan Chavarria called from lab, a critical on patient, Creatine 4.2, pt was verified and info repeated for confirmation.
[2022-04-01 15:29] LABS: NT Pro Brain Natriuretic Pep. 3580 pg/mL (0-450); Troponin I 0.08 ng/ml (0.00-0.034)
--- NOTE | 2022-04-01 16:32 | PC.NURSE ---
CLAUDE LERMA speaking with Dr. Eaton (hospitalist)
--- NOTE | 2022-04-01 16:37 | PC.NURSE ---
notified pulp house supervisor of admission
--- NOTE | 2022-04-01 16:55 | PC.NURSE ---
Dr. Eaton at BS
--- NOTE | 2022-04-01 16:55 | PC.NURSE ---
DR. BUTLER AT BEDSIDE
--- NOTE | 2022-04-01 17:34 | PC.NURSE ---
REPORT GIVEN TO Ari DAVALOS RN
--- NOTE | 2022-04-01 17:52 | PC.NURSE ---
patient arrived to floor by stretcher from ED
--- NOTE | 2022-04-01 20:29 | EXP.HP ---
History of Present Illness *Admission Date: 04/01/22 *Reason for visit:: short of breath *History of present illness: Mr. Ellsworth is a 81-year-old male with complex medical history including heart failure with preserved ejection fraction on diuretics, CKD 3/4, chronic hypoxemic respiratory failure, COPD, Chronic stasis dermatitis, chronic leg lymphedema, and diabetes who presented to the ED for evaluation of acute on chronic shortness of breath and fatigue. He normally wears 2 L nasal cannula oxygen at home however has had worsening shortness of breath and his reports having had to turn it up to 3 L because he is more dyspneic. She also complains of increased fatigue over the past week. Majority of history from his Stefania who is with him at bedside. He was recently admitted to [place] last week where he was treated for dehydration per her report and told to follow-up with cardiology today. In cardiology office, he was noted to be hypoxic, fatigue, concern for volume overload. Sent to the ER for more urgent evaluation. On arrival to the ER he was placed on 5 L nasal cannula oxygen to have saturations in the 90s. Work-up including labs and chest imaging concerning for volume overload, bibasilar atelectasis versus pneumonia, and acute on chronic kidney injury. Baseline creatinine within the past 3 months has been as good as 2. Creatinine has been as high as 6.2 however a month and a half ago when he was previously admitted to [facility] and then transferred to [place] for further management. 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 Creatinine this admission is higher than baseline but but still elevated at 4.2. BUN elevated. Patient admitted to medicine for further management of his suspected CHF exacerbation, acute worsening of kidney failure, and complex comorbidities. After arriving to the floor, he states he is having a hard time with urine output, has requested a Abebe catheter. Review of systems, he denies chest pain, nausea, vomiting. States he is more tired than usual. States he feels short of breath and generally does not feel well. Denies increased confusion. No increased bruising, fever, weeping of his legs. [facility] Medical History (Updated 04/01/22 @ 22:02 by Nicholas Eaton MD) Cardiomyopathy Dyspnea Fatigue HHD (hypertensive heart disease) NYHA class 2 and ACC/AHA stage C acute on chronic systolic congestive heart failure Pacemaker Palpitations Surgical History (Updated 04/01/22 @ 21:59 by Nicholas Eaton MD) History of implantable cardioverter-defibrillator (ICD) placement Family History (Updated 04/01/22 @ 21:51 by Nicholas Eaton MD) No significant family history Diabetes Social History Smoking Status: Never smoker second hand exposure: No alcohol intake: never counseling provided: provider counseling substance use type: denies use current occupational status: disabled Travel in the last 8 weeks: None household members: spouse housing: house current occupational exposures/hazards: Yes caffeine: No Review of Systems Review of Systems Review of systems (narrative): Full review of systems performed, pertinent positives and negatives as per HPI Meds Home Medications and Allergies Home Medications Medication Instructions Recorded Confirmed Type allopurinol 300 mg tablet 300 mg PO DAILY gout 30 days #30 10/20/20 04/01/22 Rx tabs atorvastatin 40 mg tablet 40 mg PO HS High cholesterol 10/20/20 04/01/22 Rx days #30 tabs ferrous sulfate 325 mg (65 mg 325 mg PO DAILY Supplement 30 days 10/20/20 04/01/22 Rx iron) tablet #30 tabs montelukast 10 mg tablet 10 mg PO HS Allergy symptoms 30 10/20/20 04/01/22 Rx days #30 tabs bumetanide 1 mg tablet 2 mg PO DAILY Diuretic 01/01/21 04/01/22 History loratadine 10 mg tablet 10 mg PO DAILY Allergy sympto
[2022-04-01 20:38] LABS: POC Glucose,Bedside 190 (70-110)
[2022-04-01 22:56] LABS: Microscopic, Urine URINE MICROSCOPIC (MICROSCOPIC)
[2022-04-01 23:01] LABS: Appearance,Urine CLEAR (Clear); Bilirubin,Urine Negative (Negative); Blood, Urine 1+ (Negative); Color,Urine YELLOW (Yellow); Glucose,Urine (UA) Negative (Negative); Ketones,Urine Negative (Negative); Leukocyte Esterase,Urine Negative (Negative); Nitrate,Urine Negative (Negative); PH,Urine 5.5 (5.0-8.5); Protein,Urine Negative (Negative); Specific Gravity, Urine 1.025 (1.005-1.030); Urobilinogen,Urine 0.2 EU/dl (0.2)
--- NOTE | 2022-04-01 23:06 | PC.NURSE ---
16F COUDE CATHETER PLACED AT 2250 AND HAD 700ML RETURN IMMEDIATELY.
[2022-04-01 23:21] LABS: RBC,Urine Occasional #/hpf (0-3); WBC,Urine Occasional #/hpf (0-3)
[2022-04-02] VITALS (16 sets, daily range): BP systolic 94–128; BP diastolic 36–83; PULSE 59–88; RESP 17–20; TEMP 36.5–36.9; O2SAT 89–97; BMI 39.0
--- NOTE | 2022-04-02 04:47 | PC.NURSE ---
NO ACUTE CHANGES SINCE PREVIOUS ASSESSMENT. PT HAS RESTED WELL THIS SHIFT. LUNG SOUNDS REMAIN WHEEZY. REMAINS ON NASAL CANNULA. O2 TITRATED DOWN TO 4LPM. PT TOLERATING WELL. AT THE START OF SHIFT A 16F COUDE CATHETER WAS PLACED AND HAS HAD A TOTAL OF 850ML OF URINE OUTPUT SO FAR THIS SHIFT. LEGS REMAIN WRAPPED IN KERLEX. NO C/O N/V/D, SOB, OR CP. VSS.
[2022-04-02 05:54] LABS: POC Glucose,Bedside 163 (70-110)
[2022-04-02 07:06] LABS: Basophils # 0.1 K/mm3 (0-0.2); Basophils % 0.8 % (0.1-2.0); Eosinophils # 0.2 K/mm3 (0.0-0.4); Eosinophils % 3.5 % (0.1-12.0); Hemoglobin 8.6 g/dL (14.1-18.0); Lymphocytes # 1.7 K/mm3 (0.7-4.5); Lymphocytes % 28.6 % (10-50); Mean Corpuscular HGB Conc 29.5 g/dL (31.8-35.4); Mean Corpuscular Hemoglobin 23.9 pg (27.0-31.2); Mean Platelet Volume 8.3 fl (7.4-10.4); Monocytes # 0.3 K/mm3 (0.1-1.0); Monocytes % 5.1 % (1.7-9.3); Neutrophils # 3.6 K/mm3 (1.8-7.8); Neutrophils % 61.9 % (37.0-80.0); Platelet Count 248 K/mm3 (142-424); Red Blood Count 3.58 M/mm3 (4.60-6.20); Red Cell Distribution Width 20.1 % (11.5-17.5); White Blood Count 5.8 K/mm3 (4.8-10.8)
--- NOTE | 2022-04-02 07:13 | EXP.PHA.VTE ---
[facility] Pharmacy VTE Monitoring Patient Demographics Admission date: 04/01/22 Report Date: 04/02/22 Time: 07:13 Patient Allergies morphine Allergy (Severe, Verified 04/01/22 14:18) Swelling of Lip/Tongue/Throat Height: 1.73 m Weight: 116.828 kg Current Active Problems (Updated 04/01/22 @ 22:02 by Nicholas Eaton MD) Chronic anemia (Chronic) Acute on chronic respiratory failure with hypoxia and hypercapnia (Acute) History of implantable cardioverter-defibrillator (ICD) placement (Chronic) Congestive heart failure (Chronic) Renal insufficiency (Chronic) Diabetes mellitus (Chronic) Acute on chronic kidney failure (Acute) 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 extremities (Chronic) Acute on chronic congestive heart failure with right ventricular diastolic dysfunction (Acute) Chronic prescription opiate use (Chronic) Obesity (BMI 30-39.9) (Chronic) Volume overload (Acute) Pulmonary edema cardiac cause (Acute) Hypoxia (Acute) VTE Risk Labs: VTE Related Lab Results Hgb 8.9 g/dL (14.1-18.0) L 04/01/22 14:50 Hct 29.7 % (42.0-52.0) L 04/01/22 14:50 Plt Count 256 K/mm3 (142-424) 04/01/22 14:50 PT 12.9 seconds (10.1-12.5) H 04/01/22 14:50 INR 1.21 (0.9-1.1) H 04/01/22 14:50 APTT 32.8 seconds (22.8-30.6) H 04/01/22 14:50 BUN 74 mg/dl (9-20) H 04/01/22 14:50 Creatinine 4.20 mg/dl (0.66-1.25) H 04/01/22 14:50 Estimated Creat Clear 23 mL/min (50-200) 04/01/22 14:50 VTE Score: 11 VTE Risk Level: Moderate Risk Prophylaxis VTE Prophylaxis Ordered?: Yes Types of VTE Prophylaxis: TEDS Knee High and Pharmacological Location of Applied Device: Not Applicable Pharmacologic Type: Enoxaparin
[2022-04-02 07:18] LABS: Chloride 101 mmol/L (98-107); Potassium 4.9 mmoL/L (3.5-5.1); Sodium 134 mmol/L (136-145)
[2022-04-02 07:20] LABS: Blood Urea Nitrogen 75 mg/dl (9-20); Creatinine Clearance Estimated 24 mL/min (50-200); Estimated Glomerular Filt Rate 14 ml/min (>60); GFR (African American) 17 ML/MIN (>60)
[2022-04-02 07:21] LABS: Alanine Aminotransferase 8 U/L (12-78); Albumin Level 2.4 g/dl (3.5-5.0); Albumin/Globulin Ratio 0.7 (1.1-1.8); Alkaline Phosphatase 99 U/L (38-126); Anion Gap 13.9 mEq/L (5-15); Aspartate Amino Transferase 17 U/L (17-59); Bilirubin,Total 0.3 mg/dl (0.2-1.3); Calcium 6.9 mg/dl (8.4-10.2); Carbon Dioxide 24 mmol/L (22.0-30.0); Globulin 3.3 g/dL (1.3-3.2); Glucose 137 mg/dl (74-100); Total Protein,Serum 5.7 g/dl (6.3-8.2)
--- NOTE | 2022-04-02 07:27 | HMH.PHAINT1 ---
Pharmacy Intervention Comments: Home medication reconciliation completed using outpatient pharmacy list and patient interview.
--- NOTE | 2022-04-02 07:47 | EXP.ACUTE.PN ---
Subjective *Date: 04/02/22 *Time: 13:31 Interval history: Patient states he feels about the same this morning as he did yesterday. Remained afebrile overnight. Remains hemodynamically stable. Urine output of approximately 400 to 600 cc (2 missed voids prior to placement of catheter). On 4 L nasal cannula oxygen this morning. Tolerating p.o. intake. Still has wraps on legs from recent admission to [facility]. Denies confusion. Slept in chair most of the night, remains quite fatigued. Requiring significant assistance to ambulate around the room. No nausea, vomiting, diarrhea. Medical Exam Vital signs and Labs for Last 24 Hours: Temp Pulse Resp BP Pulse Ox 97.7 F 68 20 115/60 90 L 04/02/22 04:00 04/02/22 06:07 04/02/22 04:00 04/02/22 04:00 04/02/22 06:07 Laboratory Results - last 24 hr 04/01/22 14:50: WBC 7.4, RBC 3.67 L, Hgb 8.9 L, Hct 29.7 L, MCV 80.9, MCH 24.2 L, MCHC 30.0 L, RDW 19.9 H, Plt Count 256, MPV 8.6, Neut % (Auto) 67.3, Lymph % (Auto) 24.9, [place] % (Auto) 4.9, Eos % (Auto) 1.9, Baso % (Auto) 0.9, Neut # (Auto) 5.0, Lymph # (Auto) 1.8, [place] # (Auto) 0.4, Eos # (Auto) 0.1, Baso # (Auto) 0.1 04/01/22 14:50: PT 12.9 H, INR 1.21 H, APTT 32.8 H 04/01/22 14:50: Sodium 133 L, Potassium 5.1, Chloride 100, Carbon Dioxide 23, Anion Gap 15.1 H, BUN 74 H, Creatinine 4.20 H, Estimated Creat Clear 23, Estimated GFR 14 L*, Est GFR ( Amer) 17 L*, Glucose 160 H, Calcium 7.1 L, Total Bilirubin 0.2, AST 18, ALT 13, Alkaline Phosphatase 105, Troponin I 0.08 H, NT-Pro-B Natriuret Pep 3580 H, Total Protein 5.6 L, Albumin 2.4 L, Globulin 3.2, Albumin/Globulin Ratio 0.8 L 04/01/22 14:50: SARS-CoV-2 (PCR) Not detected, Influenza A Untype (PCR) Not detected, Influenza Type B (PCR) Not detected 04/01/22 20:27: POC Glucose 190 H 04/01/22 22:50: Urine Color Yellow, Urine Appearance Clear, Urine pH 5.5, Ur Specific [place] 1.025, Urine Protein Negative, Urine Glucose (UA) Negative, Urine Ketones Negative, Urine Blood 1+, Urine Nitrate Negative, Urine Bilirubin Negative, Urine Urobilinogen 0.2, Ur Leukocyte Esterase Negative, Urine RBC Occasional, Urine WBC Occasional, Ur Squamous Epith Cells None, Urine Bacteria None 04/02/22 05:46: POC Glucose 163 H 04/02/22 06:32: WBC 5.8, RBC 3.58 L, Hgb 8.6 L, Hct 29.0 L, MCV 81.0, MCH 23.9 L, MCHC 29.5 L, RDW 20.1 H, Plt Count 248, MPV 8.3, Neut % (Auto) 61.9, Lymph % (Auto) 28.6, [place] % (Auto) 5.1, Eos % (Auto) 3.5, Baso % (Auto) 0.8, Neut # (Auto) 3.6, Lymph # (Auto) 1.7, [place] # (Auto) 0.3, Eos # (Auto) 0.2, Baso # (Auto) 0.1 04/02/22 06:32: Sodium 134 L, Potassium 4.9, Chloride 101, Carbon Dioxide 24, Anion Gap 13.9, BUN 75 H, Creatinine 4.10 H, Estimated Creat Clear 24, Estimated GFR 14 L*, Est GFR ( Amer) 17 L*, Glucose 137 H, Calcium 6.9 L, Magnesium 2.0, Total Bilirubin 0.3, AST 17, ALT 8 L D, Alkaline Phosphatase 99, Total Protein 5.7 L, Albumin 2.4 L, Globulin 3.3 H, Albumin/Globulin Ratio 0.7 L I & O for Labs for Last 24 Hours: Intake & Output 03/30/22 03/31/22 04/01/22 04/02/22 23:59 23:59 23:59 23:59 Intake Total 410 / 410 Output Total 700 / 700 150 / 150 Balance -290 / -290 -150 / -150 Weight 116.828 kg 116.828 kg Head: Present atraumatic and normocephalic ENT: Present mucous membranes moist Comment:: Poor dentition Neck: Present normal inspection Respiratory: Present decreased breath sounds, crackles (in bases) and diminished air movement; Absent wheezes Cardiac: Present Reg Rate and Rhythm and S1/S2 GI: Present soft and distention; Absent tenderness, guarding or rebound Rectal (male): Present deferred (male): Present normal inspection (escobar in place) Extremities: Present edema (woody bilateral lymphedema with scale build up) Skin: Present intact; Absent cyanosis Neuro: Present Cranial Nerve 2-12 Intact, alert and oriented x 3 Assessment and Plan *Assessment and plan (1) Acute on chronic congestive heart failure with right ventricular diastolic dys
--- NOTE | 2022-04-02 08:08 | HMH.PTEV ---
Physical Therapy Evaluation Rehab PT IP Evaluation Start: 04/01/22 22:11 Freq: ONCE Status: Active Protocol: Document 04/02/22 08:02 RICHYJUAN ALBERTO (Rec: 04/02/22 08:08 RICHYJUAN ALBERTO [id number]) Subjective/History History History This is the initial IP PT evalaution for Hollie Ellsworth. Mr. Ellsworth is well known to therapy for chronic BLE lymphedema and stasis dermititis. Pt was admitted for recently increased weakness and c/o SOA. Subjective Subjective Pt reports he is cold and wants the heat turned up Pt [facility] upon entering room Rehab PT IP Eval Objective Appearance Patient Behavior Cooperative Patient Orientation Person,Place,Time Difficulty following instructions none Speech Pattern Appropriate Ambulation Patient Able to Ambulate Yes Ambulation Observation IP General Gait Pattern Observation Wide Based Gait,Shuffling Step Ambulation Distance (feet) 10 Ambulation Assistive Device Rolling Walker Ambulation Ability Contact Guard/Hand Hold Balance Ability to Arise Able, uses arms to help Sitting Balance Steady, safe Standing Balance Steady, wide stance Dynamic Sitting Balance Ability Good Dynamic Standing Balance Ability Fair Transfers Chair Transfer Ability Supervision/Stand by Sit to Stand Chair Transfer Ability Minimal x 1 (25% assist), Moderate x 1 (50% assist) Rehab PT IP prob,goals,plan Problems Date of Evaluation: 04/02/22 PT IP Problems Transfers,Gait,Self care, Safety Rehab Potential Rehab Potential Fair Equipment Needs Assistive Devices Rolling / Wheeled Walker Plan PT Intervention Plan Bed Mobility,Transfers,Gait, Balance,Self care,Safety, Therapeutic Exercise,Other Other Intervention Plan wound care for BLE PT Plan Frequency BID Duration LOS Discharge Goals Bed Transfer Ability Contact Guard/Hand Hold Sit to Stand Chair Transfer Ability Minimal x 1 (25% assist) Ambulation Assistive Device Rolling Walker Ambulation Distance (feet) 15 Discharge Plan PT Discharge Plan Pt will benefit from skilled therapy while in [facility]. Upon DC from [facility] pt would benefit from continued skilled therapy at
--- NOTE | 2022-04-02 08:43 | PC.NURSE ---
Requested Medical records from [facility] at this time.
--- NOTE | 2022-04-02 08:58 | HMH.OTEV ---
OT Inpatient Evaluation Rehab OT IP Evaluation Start: 04/01/22 22:11 Freq: ONCE Status: Complete Protocol: Document 04/02/22 08:51 EMILIANO (Rec: 04/02/22 08:58 [facility] [id number]) Rehab OT IP Assessment Subjective History Pt oriented x 3 on arrival. Pt agreeable to engage in therapy evaluation. Pt was admitted via ED on 04/01/22 due to shortness of breath. Prior to being in the hospital , pt was living at home with his . Pt reports he needed assistance with all ADLs such as dressing and bathing. He was also dependent upon for completion of all IADLs. Pt did use a rolling walker during ambulation. Pt has a past medical history of: Cardiomyopathy Dyspnea Fatigue HHD (hypertensive heart disease) NYHA class 2 and ACC/AHA stage C acute on chronic systolic congestive heart failure Pacemaker Palpitations Subjective You ask too many damn questions. Pt resting in chair on arrival . Objective Patient Orientation Person,Place,Birthday Upper Extremity Gross ROM Mod Limitation 50% Shoulder ROM Limitations Muscle Weakness Elbow ROM Limitations Muscle Weakness Wrist Limitations of Range of Motion Muscle Weakness Transfer Training Sit/Stand Transfer Assist Level Contact Guard/Hand Hold Rehab OT IP prob,goals,plan Problems Date of Evaluation: 04/02/22 OT IP Problems Bed Mobility,Transfers,Gait, Balance,Self care,Safety Rehab Potential Rehab Potential Fair Equipment Needs Assistive Devices Rolling / Wheeled Walker Plan OT intervention Plan Bed Mobility,Transfers,Balance ,Self care,Safety,Therapeutic Exercise OT Plan Frequency BID Duration LOS Discharge Goals Bed Mobility Ability Assistance x1 Sit to Stand Ch
--- NOTE | 2022-04-02 09:52 | EXP.CARD.CON ---
History of Present Illness History of Present Illness Consult date: 04/02/22 Requesting physician: Nicholas Eaton Consult reason: congestive heart failure Chief complaint: hxpoxic respiratory failure, volume overload, eleaazr Additional Medical History:: Significant past medical hx: Hx of ICM with recovered EF s/p ppm HTN HLD COPD CAD- William jun 2017. Medical management cath February 2018 BRAIN-non compliant with cpap Chronic afib-no OAC due to recurrent GI bleeds. Failed OAC and later refused to try again. Previously refused watchman's device or ERIN occluder device. Chronic venous Stasis Chronic hypoxic respiratory failure CKD Hx of GI bleeds IDDM Chronic anemia History of present illness: 81-year-old white male with above past medical history presented to cardiology office yesterday for cardiology follow-up status post hospital admission at [facility]. Upon presentation to office patient was complaining of worsening shortness of breath and fatigue. Oxygen saturation was noted to be in the 80s on 2 L nasal cannula. Patient was taken to ER for further evaluation with concerns for acute hypoxic respiratory failure and possible volume overload. Upon presentation to ER patient was placed on 5 L nasal cannula oxygen saturation improved to the 90s. Chest x-ray showed cardiomegaly with worsening pulmonary vascular congestion, worsening bibasilar opacities, pneumonia versus atelectasis. Labs were significant as follows: Hemoglobin 8.9 (baseline 8-9), INR 1.21, sodium 133, creatinine 4.20 (baseline anywhere from 2-6), troponin 0.07(noted to be chronically elevated), glucose 353. Patient was given 80 mg of Lasix on admission and admitted for management of suspected CHF exacerbation, acute worsening kidney failure, and complex comorbidities. Of note patient is known to be noncompliant and has left AMA on previous two hospital admissions. Last admission to [place], patient left AMA but was advised he needed to follow-up with nephrology which patient did not. This morning patient is resting comfortably in a chair. Oxygen saturation remains low 90s on NC. Urine output remains low, vitals remain stable. [facility] Medical History (Updated 04/02/22 @ 13:46 by Kinga Lewis APRN) Cardiomyopathy Dyspnea Fatigue HHD (hypertensive heart disease) NYHA class 2 and ACC/AHA stage C acute on chronic systolic congestive heart failure Pacemaker Palpitations Surgical History (Updated 04/01/22 @ 22:00 by Nicholas Eaton MD) History of implantable cardioverter-defibrillator (ICD) placement Family History (Updated 04/01/22 @ 21:51 by Nicholsa Eaton MD) Other Diabetes No significant family history Social History Smoking Status: Never smoker second hand exposure: No alcohol intake: never counseling provided: provider counseling substance use type: denies use current occupational status: disabled Travel in the last 8 weeks: None household members: spouse housing: house current occupational exposures/hazards: Yes caffeine: No Review of Systems Review of Systems Review of systems:: pertinent systems reviewed and negative unless documented below *Cardiovascular Cardiovascular: Denies chest pain, Reports dyspnea and Reports leg edema *Respiratory Respiratory: Reports dyspnea Exam Data for Last 24 hours Vital signs and Labs for Last 24 Hours: Temp Pulse Resp BP Pulse Ox 97.8 F 64 17 96/59 L 94 L 04/02/22 07:41 04/02/22 07:41 04/02/22 07:41 04/02/22 07:41 04/02/22 07:41 Laboratory Results - last 24 hr 04/01/22 14:50: WBC 7.4, RBC 3.67 L, Hgb 8.9 L, Hct 29.7 L, MCV 80.9, MCH 24.2 L, MCHC 30.0 L, RDW 19.9 H, Plt Count 256, MPV 8.6, Neut % (Auto) 67.3, Lymph % (Auto) 24.9, [place] % (Auto) 4.9, Eos % (Auto) 1.9, Baso % (Auto) 0.9, Neut # (Auto) 5.0, Lymph # (Auto) 1.8, [place] # (Auto) 0.4, Eos # (Auto) 0.1, Baso # (Auto) 0.1 04/01/22 14:50: PT 12.9 H, INR 1.
--- NOTE | 2022-04-02 11:14 | CA_ITS ---
APPROVED REPORT EXAM: Limited 2D Echocardiogram Diesel Scoop Operator: Jaimie Dinh RVT Ht: 5 ft 8 in Wt: 257lbs BSA: 2.27 BP: 115/60 mmHg Indications: EF CHECK,CHF,A-FIB,AICD,CAD,HX CM,HTN,HLD,SOA,OBESITY,ANEMIA TDS-PT SCANNED UPRIGHT IN CHAIR,BEST EXAM POSSIBLE 2D Dimensions LVOT 1.92 cm (M/F) 1.5-2.5 M-Mode Dimensions RVDd 3.14 cm (0.9-2.6) LA Diam 4.45 cm (1.9-4.0) LVDd 5.56 cm (3.5-5.7) Ao Diam 3.15 cm (2.0-3.7) LVDs 3.40 cm (3.5-5.7) IVSd 1.61 cm (0.6-1.1) PWd 0.98 cm (0.6-1.1) EF (Teich) 68.70% FS 38.80% EDV (Teich) 151.20 mL ESV (Teich) 47.40 mL Conclusion 1. Limited echocardiogram was obtained to evaluate left ventricular systolic function. 2. Normal left ventricular size, estimated ejection fraction 55% with no regional wall motion abnormality. 3. There is echodense linear structures in the right atrium and right ventricle which likely represents pacemaker lead. Electronically signed by : René De León MD 04/03/2022 05:45:26
--- NOTE | 2022-04-02 16:47 | HMH.PTWOUND ---
Rehab Inpt Wound Evaluation Rehab IP Wound Evaluation Start: 04/02/22 08:52 Freq: ONCE Status: Active Protocol: Document 04/02/22 16:43 BRIDGET (Rec: 04/02/22 16:47 BRIDGET [id number]) Rehab PT Wound Assessment Patient Status Premedicated Prior to Dressing Change No Subjective Subjective Pt asleep in chair - groggy and unable to stay awke during eval Wound Left Lower Leg Wound Type chronic dermatitis Wound Margins Description Indistinct Drainage Amount None Drainage Odor No Odor Dressing Status Soiled Wound Topical Solution/Irrigant Antibiotic Irrigant Primary Dressing Unna Boot Comment unna boot Wound Secondary Dressing Type Gauze Roll/Wrap,Adhering Gauze Roll Comment kerlix, coban Right Lower Leg Wound Type chronic dermatitis Wound Bed Appearance Peeling Skin Wound Margins Description Indistinct Wound Drainage Description None Drainage Amount None Drainage Odor No Odor Dressing Status Soiled Wound Topical Solution/Irrigant Antibiotic Irrigant Primary Dressing Unna Boot Comment unna boot Wound Secondary Dressing Type Gauze Roll/Wrap,Adhering Gauze Roll Comment kerlix,coban Wound Debridement Amount of Tissue Minimal Removed Dressing Change Date 04/02/22 Plan/Recommendation Comment No open wounds - pt suffers from chronic BLE lymphedema, venous insufficiency, dermatitis and hyper-keratosis - keep BLE wrapped w/ compression - no wound care needs at this time - nsg to maintain unna boots Eval Complexity Eval Charge Codes 75767 - Moderate Complexity G-codes PT Current Status Other PT/OT Status PT Current Status Modifier CN-At least 100% impaired, limited or restricted PT Goal Status Other PT/OT Status PT Goal Status Modifer CN-At least 100% impaired, limited or restricted PHYSICIAN CERTIFICATION: I certify the specified therapy services for Johnathon Ellsworth are required, authorized, and reviewed every 30 days.
--- NOTE | 2022-04-02 17:00 | PC.NURSE ---
Patient VSS, B/L crackles noted throughout, diuresed with lasix & bumex drip, 1 run of calcium and albumin. Large BM x 2, BLE dressing change by PT, recvd 1 unit of RBC. Has been up to chair most of day with family at bedside. Shows no acute distress noted, call light within reach.
[2022-04-02 18:23] LABS: Anion Gap 16.2 mEq/L (5-15); Blood Urea Nitrogen 79 mg/dl (9-20); Carbon Dioxide 22 mmol/L (22.0-30.0); Chloride 99 mmol/L (98-107); Creatinine Clearance Estimated 24 mL/min (50-200); Estimated Glomerular Filt Rate 14 ml/min (>60); GFR (African American) 17 ML/MIN (>60); Glucose 173 mg/dl (74-100); Potassium 5.2 mmoL/L (3.5-5.1); Sodium 132 mmol/L (136-145)
[2022-04-02 18:59] LABS: Hematocrit 28.6 % (42.0-52.0); Hemoglobin 8.7 g/dL (14.1-18.0)
[2022-04-02 19:16] LABS: POC Glucose,Bedside 185 (70-110)
[2022-04-02 21:52] LABS: POC Glucose,Bedside 195 (70-110)
[2022-04-03] VITALS (9 sets, daily range): BP systolic 103–151; BP diastolic 51–91; PULSE 65–78; RESP 16–22; TEMP 36.7–36.9; O2SAT 90–98; BMI 38.9
--- NOTE | 2022-04-03 04:23 | PC.NURSE ---
pt slept in chair all night, refused to lay in bed, noted left arm weakness in which pt states he had a stroke in june, V/S noted with sbp 151; map 111; 3+ edema noted to BLE, 2+ to BUE; BLE with dominique boot wrap in place, f/c to bsd with clear yellow urine noted, bumex drip continues at 10ml/hr as prescribed, skin dry warm and pink, 02 at 4L pnc with 02 sats 93%; noted pt removes o2 and states he is too sore and weak to put it back on, pt up with 2 assist with walker, pt unsteady on feet, lung sounds diminished, abd soft distended non-tender, active BS, pt states he takes 30mg of oxycodone at home 4 times a day for pain, will pass on to next shift, no other issues noted at this time,
[2022-04-03 06:19] LABS: Basophils % 0.8 % (0.1-2.0); Eosinophils # 0.2 K/mm3 (0.0-0.4); Eosinophils % 3.8 % (0.1-12.0); Hematocrit 30.3 % (42.0-52.0); Lymphocytes % 21.1 % (10-50); Mean Corpuscular HGB Conc 29.7 g/dL (31.8-35.4); Mean Corpuscular Hemoglobin 24.4 pg (27.0-31.2); Mean Corpuscular Volume 82.2 fl (80-94); Mean Platelet Volume 8.4 fl (7.4-10.4); Monocytes # 0.5 K/mm3 (0.1-1.0); Monocytes % 11.7 % (1.7-9.3); Neutrophils # 2.9 K/mm3 (1.8-7.8); Neutrophils % 62.6 % (37.0-80.0); Platelet Count 225 K/mm3 (142-424); Red Blood Count 3.69 M/mm3 (4.60-6.20); Red Cell Distribution Width 20.2 % (11.5-17.5); White Blood Count 4.6 K/mm3 (4.8-10.8)
[2022-04-03 06:43] LABS: POC Glucose,Bedside 125 (70-110)
[2022-04-03 07:37] LABS: Chloride 100 mmol/L (98-107)
[2022-04-03 07:38] LABS: Potassium 4.9 mmoL/L (3.5-5.1); Sodium 133 mmol/L (136-145)
[2022-04-03 07:40] LABS: Blood Urea Nitrogen 78 mg/dl (9-20); Creatinine Clearance Estimated 27 mL/min (50-200); Estimated Glomerular Filt Rate 16 ml/min (>60); GFR (African American) 19 ML/MIN (>60)
[2022-04-03 07:41] LABS: Alanine Aminotransferase 9 U/L (12-78); Albumin Level 2.7 g/dl (3.5-5.0); Albumin/Globulin Ratio 0.8 (1.1-1.8); Alkaline Phosphatase 92 U/L (38-126); Anion Gap 13.9 mEq/L (5-15); Aspartate Amino Transferase 18 U/L (17-59); Bilirubin,Total 0.5 mg/dl (0.2-1.3); Calcium 7.1 mg/dl (8.4-10.2); Carbon Dioxide 24 mmol/L (22.0-30.0); Globulin 3.3 g/dL (1.3-3.2); Glucose 119 mg/dl (74-100); Magnesium 1.9 mg/dl (1.6-2.3)
--- NOTE | 2022-04-03 08:56 | EXP.CARD.PN ---
Subjective Subjective Date: 04/03/22 Time: 08:00 Principal diagnosis: Worsening hypoxic respiratory failure, volume overload, YENIFER Interval history: Patient sitting up in chair reports feeling better shortness of air is improving, lower extremity edema is improving. A.m. labs hemoglobin 9.0, creatinine 3.7, continues to diures. Exam Data for Last 24 hours Vital signs and Labs for Last 24 Hours: Temp Pulse Resp BP Pulse Ox 98.4 F 75 22 103/51 L 90 L 04/03/22 08:00 04/03/22 08:00 04/03/22 08:00 04/03/22 08:00 04/03/22 08:00 Laboratory Results - last 24 hr 04/02/22 08:55: Blood Type A Positive, Antibody Screen Negative, Crossmatch (AHG) See Detail 04/02/22 17:50: Sodium 132 L, Potassium 5.2 H, Chloride 99, Carbon Dioxide 22, Anion Gap 16.2 H, BUN 79 H, Creatinine 4.20 H, Estimated Creat Clear 24, Estimated GFR 14 L*, Est GFR ( Amer) 17 L*, Glucose 173 H D, Calcium 7.0 L 04/02/22 18:01: POC Glucose 185 H 04/02/22 18:45: Hgb 8.7 L, Hct 28.6 L 04/02/22 20:35: POC Glucose 195 H 04/03/22 06:03: WBC 4.6 L, RBC 3.69 L, Hgb 9.0 L, Hct 30.3 L, MCV 82.2, MCH 24.4 L, MCHC 29.7 L, RDW 20.2 H, Plt Count 225, MPV 8.4, Neut % (Auto) 62.6, Lymph % (Auto) 21.1, Chambers % (Auto) 11.7 H, Eos % (Auto) 3.8, Baso % (Auto) 0.8, Neut # (Auto) 2.9, Lymph # (Auto) 1.0, Chambers # (Auto) 0.5, Eos # (Auto) 0.2, Baso # (Auto) 0.0 04/03/22 06:03: Sodium 133 L, Potassium 4.9, Chloride 100, Carbon Dioxide 24, Anion Gap 13.9, BUN 78 H, Creatinine 3.70 H, Estimated Creat Clear 27, Estimated GFR 16 L*, Est GFR ( Amer) 19 L*, Glucose 119 H D, Calcium 7.1 L, Magnesium 1.9, Total Bilirubin 0.5, AST 18, ALT 9 L, Alkaline Phosphatase 92, Total Protein 6.0 L, Albumin 2.7 L D, Globulin 3.3 H, Albumin/Globulin Ratio 0.8 L 04/03/22 06:04: POC Glucose 125 H I & O for Last 24 hours: Intake & Output 03/31/22 04/01/22 04/02/22 04/03/22 23:59 23:59 23:59 23:59 Intake Total 410 / 410 840 / 840 865 / 865 Output Total 700 / 700 2250 / 2250 600 / 600 Balance -290 / -290 -1410 / -1410 265 / 265 Weight 257 lb 9 oz 257 lb 7.999 oz 257 lb Constitutional Constitutional: no acute distress *Routine Respiratory Exam Respiratory: Present wheezes, crackles and symmetric chest movement *Routine Cardiovascular Exam Cardiovascular: Present RRR, Normal S1 and Normal S2 *Routine Abdominal Exam Abdominal: Present soft and normoactive bowel sounds; Absent tenderness *Routine Extremities Exam Extremities: Present edema and full ROM *Routine Skin Exam Skin: Present intact, dry and warm Detailed Neck Exam: Thyroids Thyroid: Absent bruit Progress Note: A&P Assessment and plan (1) History of ischemic cardiomyopathy: Status: Acute (2) HTN (hypertension): Status: Acute (3) Hyperlipidemia: Status: Chronic (4) CAD (coronary artery disease): Status: Chronic (5) Chronic a-fib: Status: Acute (6) Acute and chronic respiratory failure: Status: Acute (7) CKD (chronic kidney disease): Status: Acute (8) Anemia, chronic disease: Status: Acute Assessment and Plan Assessment and Plan for All Diagnoses:: Hx of ICM with recovered EF/Diastolic dysfunction-NYHA IV on presentation -Echo from [facility] dated 03[facility]27/2022 shows a normal EF.? Will repeat limited echo in the setting of volume overload. -Continue Metoprolol 100mg QD and start Bumex drip 1mg/hr.? MARY and ARB currently on hold due to YENIFER.? Potassium on the higher end, we will hold off on starting Aldactone until kidney function improves.? Add Jardiance prior to discharge Chronic afib/sss/s/p PPM -Currently normal sinus rhythm rate in the 60s. -No oral anticoagulation due to history of recurrent GI bleed and chronic anemia.? Previously discussed watchman's procedure and ERIN closure with patient-he declined both. -Continue metoprolol 100 mg p.o. daily -PPM download April 02, 2021-battery life 7.5-years, atrial paced 5%, V paced less than 1% A. fib burden noted to be les
--- NOTE | 2022-04-03 09:00 | EXP.ACUTE.PN ---
Subjective *Date: 04/03/22 *Time: 12:42 Interval history: Mr. Ellsworth slept in the bedside chair overnight. Had good response to Bumex drip with greater than 1.4 L of negative fluid balance. Still feels short of breath this morning but somewhat better. Able to wean to 3 L on rounds. Denies fever, chest pain, nausea or vomiting. Complaining of joint aches and pains, sore neck. Feels his arthritis is acting up and would like to have some of his pain medication. Spent extensive time at bedside today discussing advance care planning, complexities of his medical comorbidities, surrogate decision maker (his ), and goals of care for both current visit and future visits. Of note, labs show slight improvement with kidney function. Creatinine down to 3.7. Medical Exam Vital signs and Labs for Last 24 Hours: Temp Pulse Resp BP Pulse Ox 98.4 F 75 22 103/51 L 90 L 04/03/22 08:00 04/03/22 08:00 04/03/22 08:00 04/03/22 08:00 04/03/22 08:00 Laboratory Results - last 24 hr 04/02/22 08:55: Blood Type A Positive, Antibody Screen Negative, Crossmatch (AHG) See Detail 04/02/22 17:50: Sodium 132 L, Potassium 5.2 H, Chloride 99, Carbon Dioxide 22, Anion Gap 16.2 H, BUN 79 H, Creatinine 4.20 H, Estimated Creat Clear 24, Estimated GFR 14 L*, Est GFR ( Amer) 17 L*, Glucose 173 H D, Calcium 7.0 L 04/02/22 18:01: POC Glucose 185 H 04/02/22 18:45: Hgb 8.7 L, Hct 28.6 L 04/02/22 20:35: POC Glucose 195 H 04/03/22 06:03: WBC 4.6 L, RBC 3.69 L, Hgb 9.0 L, Hct 30.3 L, MCV 82.2, MCH 24.4 L, MCHC 29.7 L, RDW 20.2 H, Plt Count 225, MPV 8.4, Neut % (Auto) 62.6, Lymph % (Auto) 21.1, [place] % (Auto) 11.7 H, Eos % (Auto) 3.8, Baso % (Auto) 0.8, Neut # (Auto) 2.9, Lymph # (Auto) 1.0, [place] # (Auto) 0.5, Eos # (Auto) 0.2, Baso # (Auto) 0.0 04/03/22 06:03: Sodium 133 L, Potassium 4.9, Chloride 100, Carbon Dioxide 24, Anion Gap 13.9, BUN 78 H, Creatinine 3.70 H, Estimated Creat Clear 27, Estimated GFR 16 L*, Est GFR ( Amer) 19 L*, Glucose 119 H D, Calcium 7.1 L, Magnesium 1.9, Total Bilirubin 0.5, AST 18, ALT 9 L, Alkaline Phosphatase 92, Total Protein 6.0 L, Albumin 2.7 L D, Globulin 3.3 H, Albumin/Globulin Ratio 0.8 L 04/03/22 06:04: POC Glucose 125 H I & O for Labs for Last 24 Hours: Intake & Output 03/31/22 04/01/22 04/02/22 04/03/22 23:59 23:59 23:59 23:59 Intake Total 410 / 410 840 / 840 865 / 865 Output Total 700 / 700 2250 / 2250 600 / 600 Balance -290 / -290 -1410 / -1410 265 / 265 Weight 116.828 kg 116.8 kg 116.573 kg Head: Present atraumatic and normocephalic ENT: Present mucous membranes moist Comment:: Poor dentition Neck: Present normal inspection Respiratory: Present decreased breath sounds, crackles (in bases) and diminished air movement; Absent wheezes Cardiac: Present Reg Rate and Rhythm, S1/S2 and pedal pulses present (diminished) GI: Present soft and distention; Absent tenderness, guarding or rebound Rectal (male): Present deferred (male): Present normal inspection (escobar in place) Extremities: Present edema (woody bilateral lymphedema with scale build up) Skin: Present intact; Absent cyanosis Comment:: woody BLE edema, in wraps, no weeping or bleeding. Neuro: Present Cranial Nerve 2-12 Intact, alert and oriented x 3 Assessment and Plan *Assessment and plan (1) Acute on chronic congestive heart failure with right ventricular diastolic dysfunction: Status: Acute Category: Medical Code(s): I50.82 - Biventricular heart failure; I50.33 - Acute on chronic diastolic (congestive) heart failure (2) Acute on chronic respiratory failure with hypoxia and hypercapnia: Status: Acute Category: Medical Code(s): J96.21 - Acute and chronic respiratory failure with hypoxia; J96.22 - Acute and chronic respiratory failure with hypercapnia (3) HTN (hypertension): Status: Acute Category: Medical Code(s): I10 - Essential (primary) hypertension (4) CAD (coronary artery disease):
--- NOTE | 2022-04-03 10:36 | DIET.NUTRFU ---
Patient was less edematous today, easier to breathe. Meal intake continues to be good at 75%-100% of cardiac/diabetic diet. Provider reviewed LT health goals this morning, renal fxn Cr still at 3.7, but improved from 4.2. He encouraged patient to review advance directives with for future. Plans to discharge when ready with home health. cooks all meals, she is aware of diet recommendations.
[2022-04-03 11:55] LABS: POC Glucose,Bedside 148 (70-110)
[2022-04-03 16:15] LABS: POC Glucose,Bedside 143 (70-110)
[2022-04-03 18:09] LABS: Chloride 98 mmol/L (98-107); Potassium 5.3 mmoL/L (3.5-5.1); Sodium 134 mmol/L (136-145)
[2022-04-03 18:11] LABS: Blood Urea Nitrogen 76 mg/dl (9-20); Creatinine Clearance Estimated 25 mL/min (50-200); Estimated Glomerular Filt Rate 15 ml/min (>60); GFR (African American) 18 ML/MIN (>60)
[2022-04-03 18:12] LABS: Alanine Aminotransferase 10 U/L (12-78); Albumin/Globulin Ratio 0.9 (1.1-1.8); Alkaline Phosphatase 99 U/L (38-126); Anion Gap 15.3 mEq/L (5-15); Aspartate Amino Transferase 16 U/L (17-59); Bilirubin,Total 0.3 mg/dl (0.2-1.3); Calcium 7.3 mg/dl (8.4-10.2); Carbon Dioxide 26 mmol/L (22.0-30.0); Globulin 3.3 g/dL (1.3-3.2); Glucose 146 mg/dl (74-100); Phosphorous 5.3 mg/dl (2.5-4.5); Total Protein,Serum 6.3 g/dl (6.3-8.2)
--- NOTE | 2022-04-03 18:18 | PC.NURSE ---
spoke with zhang in lab about critical creat. 4.0
--- NOTE | 2022-04-03 18:30 | PC.NURSE ---
Spoke with Dr. Eaton about labs
[2022-04-03 19:33] LABS: Intact Parathyroid Hormone 300.1 pg/mL (7.5-53.5)
[2022-04-03 19:39] LABS: 25-OH Vitamin D, Total < 12.8 ng/mL (30-100)
--- NOTE | 2022-04-03 19:57 | XR_ITS ---
PROCEDURE INFORMATION: Exam: XR Chest Exam date and time: 04/03/2022 8:02 PM Age: 81 years old Clinical indication: Condition or disease; Other: Volume overload TECHNIQUE: Imaging protocol: Radiologic exam of the chest. Views: 1 view. COMPARISON: CR XR CHEST PORTABLE 04/01/2022 3:12 PM FINDINGS: Tubes, catheters and devices: Left subclavian pacemaker with distal wires overlying right atrium and right ventricle. Lungs: Improvement in central pulmonary vascular engorgement and interstitial edema. Pleural spaces: Hazy density obscures left lateral costophrenic angle and there is atelectasis or infiltrate in the left lung base. Heart/Mediastinum: Heart is enlarged. Vasculature: Calcification within thoracic aorta. Bones/joints: Diffuse bone demineralization. Degenerative changes of the shoulders. IMPRESSION: Improvement in congestive heart failure pattern with persistent left pleural effusion and infiltrate or atelectasis in the left lung base. Continued follow-up recommended.
--- NOTE | 2022-04-03 19:59 | PC.NURSE ---
Pt is A/Ox4. He has been up to the chair all day, he refuses to lay in the bed. He bottom is red and placed barrier cream on it. His bumex drip was d/c at 1705. He has tolerated his diet well. He has complained of chronic pain in his back and neck. His FC is draining well. His lungs are diminished. He has dominique boots placed in LE.
[2022-04-03 20:25] LABS: POC Glucose,Bedside 174 (70-110)
[2022-04-04] VITALS: BP 115/59; PULSE 70; RESP 20; TEMP 36.9; O2SAT 96
[2022-04-04 04:00] VITALS: BP 112/56; PULSE 68; RESP 15; TEMP 36.9; O2SAT 97
[2022-04-04 05:18] VITALS: PULSE 69; PULSE 72; O2SAT 94
--- NOTE | 2022-04-04 05:20 | PC.NURSE ---
NO ACUTE CHANGES SINCE PREVIOUS ASSESSMENT. PT HAS SLEPT A MAJORITY OF THE SHIFT. REMAINS IN THE CHAIR. LUNG SOUNDS ARE DIMINISHED. REMINS ON 4L NASAL CANNULA. PT HAS HAD A NON-PRODUCTIVE COUGH THIS SHIFT. COUDE CATHETER REMAINS IN PLACE AND IS DRAINING ADEQUATE AMOUNTS OR URINE. PT STILL HAS +2 PITTING EDEMA ON HIS LOWER EXTREMITIES. NO C/O N/V/D OR SHORTNESS OF BREATH. VSS. CALL JOAQUIN WITHIN REACH.
[2022-04-04 05:44] LABS: POC Glucose,Bedside 132 (70-110)
[2022-04-04 07:31] VITALS: BP 106/69; PULSE 74; RESP 17; TEMP 36.6; O2SAT 96
[2022-04-04 08:01] LABS: Basophils # 0.1 K/mm3 (0-0.2); Eosinophils # 0.1 K/mm3 (0.0-0.4); Hematocrit 32.6 % (42.0-52.0); Lymphocytes # 1.4 K/mm3 (0.7-4.5); Lymphocytes % 22.2 % (10-50); Mean Corpuscular HGB Conc 30.6 g/dL (31.8-35.4); Mean Corpuscular Hemoglobin 25.2 pg (27.0-31.2); Mean Corpuscular Volume 82.4 fl (80-94); Mean Platelet Volume 8.8 fl (7.4-10.4); Monocytes # 0.4 K/mm3 (0.1-1.0); Monocytes % 6.1 % (1.7-9.3); Neutrophils # 4.2 K/mm3 (1.8-7.8); Neutrophils % 68.7 % (37.0-80.0); Platelet Count 215 K/mm3 (142-424); Red Blood Count 3.96 M/mm3 (4.60-6.20); Red Cell Distribution Width 20.1 % (11.5-17.5); White Blood Count 6.2 K/mm3 (4.8-10.8)
[2022-04-04 08:07] LABS: Chloride 100 mmol/L (98-107)
[2022-04-04 08:08] LABS: Potassium 5.8 mmoL/L (3.5-5.1); Sodium 134 mmol/L (136-145)
[2022-04-04 08:10] LABS: Alanine Aminotransferase 9 U/L (12-78); Alkaline Phosphatase 94 U/L (38-126); Aspartate Amino Transferase 24 U/L (17-59); Bilirubin,Total 0.7 mg/dl (0.2-1.3); Carbon Dioxide 25 mmol/L (22.0-30.0); Creatinine Clearance Estimated 24 mL/min (50-200); Estimated Glomerular Filt Rate 14 ml/min (>60); GFR (African American) 17 ML/MIN (>60)
[2022-04-04 08:11] LABS: Albumin/Globulin Ratio 0.8 (1.1-1.8); Calcium 7.2 mg/dl (8.4-10.2); Globulin 3.6 g/dL (1.3-3.2); Glucose 155 mg/dl (74-100); Total Protein,Serum 6.6 g/dl (6.3-8.2)
[2022-04-04 08:30] LABS: Anion Gap 14.8 mEq/L (5-15)
[2022-04-04 08:32] LABS: Blood Urea Nitrogen 82 mg/dl (9-20)
--- NOTE | 2022-04-04 08:37 | PC.NURSE ---
Notified Dr. Eaton of BUN and CREAT of 82 BUN and CREAT 4.27.
--- NOTE | 2022-04-04 08:54 | EXP.CARD.PN ---
Subjective Subjective Date: 04/04/22 Time: 08:00 Principal diagnosis: Worsening hypoxic respiratory failure, volume overload, YENIFER Interval history: Patient off of bumex drip since yesterday afternoon. Reports sob continues to improve. Repeat chest xray from 04/03/2022 shows improvement in congestive heart failure pattern with persistent left pleural effusion and infiltrate or atelectasis in the lung base. Labs as follow: Potassium 5.8, creatinine worse at 4.2 Exam Data for Last 24 hours Vital signs and Labs for Last 24 Hours: Temp Pulse Resp BP Pulse Ox 97.8 F 74 17 106/69 L 96 04/04/22 07:31 04/04/22 07:31 04/04/22 07:31 04/04/22 07:31 04/04/22 07:31 Laboratory Results - last 24 hr 04/03/22 11:42: POC Glucose 148 H 04/03/22 16:07: POC Glucose 143 H 04/03/22 17:51: PTH Intact 300.1 H 04/03/22 17:51: 25-OH Vitamin D Total < 12.8 L 04/03/22 17:51: Sodium 134 L, Potassium 5.3 H, Chloride 98, Carbon Dioxide 26, Anion Gap 15.3 H, BUN 76 H, Creatinine 4.00 H, Estimated Creat Clear 25, Estimated GFR 15 L*, Est GFR ( Amer) 18 L*, Glucose 146 H D, Calcium 7.3 L, Phosphorus 5.3 H, Total Bilirubin 0.3, AST 16 L, ALT 10 L, Alkaline Phosphatase 99, Total Protein 6.3, Albumin 3.0 L D, Globulin 3.3 H, Albumin/Globulin Ratio 0.9 L 04/03/22 19:59: POC Glucose 174 H 04/04/22 05:34: POC Glucose 132 H 04/04/22 07:53: WBC 6.2 D, RBC 3.96 L, Hgb 10.0 L, Hct 32.6 L, MCV 82.4, MCH 25.2 L, MCHC 30.6 L, RDW 20.1 H, Plt Count 215, MPV 8.8, Neut % (Auto) 68.7, Lymph % (Auto) 22.2, [place] % (Auto) 6.1, Eos % (Auto) 2.0, Baso % (Auto) 1.0, Neut # (Auto) 4.2, Lymph # (Auto) 1.4, [place] # (Auto) 0.4, Eos # (Auto) 0.1, Baso # (Auto) 0.1 04/04/22 07:53: Sodium 134 L, Potassium 5.8 H, Chloride 100, Carbon Dioxide 25, Anion Gap 14.8, BUN 82 H, Creatinine 4.20 H, Estimated Creat Clear 24, Estimated GFR 14 L*, Est GFR ( Amer) 17 L*, Glucose 155 H, Calcium 7.2 L, Total Bilirubin 0.7, AST 24 D, ALT 9 L, Alkaline Phosphatase 94, Total Protein 6.6, Albumin 3.0 L, Globulin 3.6 H, Albumin/Globulin Ratio 0.8 L I & O for Last 24 hours: Intake & Output 04/01/22 04/02/22 04/03/22 04/04/22 23:59 23:59 23:59 23:59 Intake Total 410 / 410 840 / 840 1585 / 1585 360 / 360 Output Total 700 / 700 2250 / 2250 1300 / 2500 1400 / 1400 Balance -290 / -290 -1410 / -1410 285 / -915 -1040 / -1040 Weight 257 lb 9 oz 257 lb 7.999 oz 257 lb Constitutional Constitutional: no acute distress *Routine Respiratory Exam Respiratory: Present wheezes, crackles and symmetric chest movement *Routine Cardiovascular Exam Cardiovascular: Present RRR, Normal S1 and Normal S2 *Routine Abdominal Exam Abdominal: Present soft, normoactive bowel sounds and distended; Absent tenderness *Routine Extremities Exam Extremities: Present edema and full ROM *Routine Skin Exam Skin: Present intact, dry and warm Detailed Neck Exam: Thyroids Thyroid: Absent bruit Progress Note: A&P Assessment and plan (1) Acute on chronic congestive heart failure with right ventricular diastolic dysfunction: Status: Acute (2) Acute on chronic respiratory failure with hypoxia and hypercapnia: Status: Acute (3) HTN (hypertension): Status: Acute (4) CAD (coronary artery disease): Status: Chronic (5) CKD (chronic kidney disease): Status: Acute (6) Acute on chronic kidney failure: Status: Acute (7) Volume overload: Status: Acute (8) Chronic anemia: Status: Chronic (9) Diabetes mellitus: Status: Chronic (10) 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 extremities: Status: Chronic (11) Chronic prescription opiate use: Status: Chronic Assessment and Plan Assessment and Plan for All Diagnoses:: Hx of ICM with recovered EF/Diastolic dysfunction-NYHA IV on presentation -Echo from [facility] dated 03/27/2022 shows a normal EF.? Limited Echo 04/02/2022-EF 55 with no regional wall motion abnormality noted. -Symptoms improving. Chest
--- NOTE | 2022-04-04 10:42 | EXP.DC.SUM ---
General Admission date:: 04/01/22 Discharge date: 04/04/22 HPI HPI HPI: Mr. Ellsworth is a 81-year-old male with complex medical history including heart failure with preserved ejection fraction on diuretics, CKD 3/4, chronic hypoxemic respiratory failure, COPD, Chronic stasis dermatitis, chronic leg lymphedema, and diabetes who presented to the ED for evaluation of acute on chronic shortness of breath and fatigue. He normally wears 2 L nasal cannula oxygen at home however has had worsening shortness of breath and his reports having had to turn it up to 3 L because he is more dyspneic. She also complains of increased fatigue over the past week. Majority of history from his Stefania who is with him at bedside. He was recently admitted to [place] last week where he was treated for dehydration per her report and told to follow-up with cardiology today. In cardiology office, he was noted to be hypoxic, fatigue, concern for volume overload. Sent to the ER for more urgent evaluation. On arrival to the ER he was placed on 5 L nasal cannula oxygen to have saturations in the 90s. Work-up including labs and chest imaging concerning for volume overload, bibasilar atelectasis versus pneumonia, and acute on chronic kidney injury. Baseline creatinine within the past 3 months has been as good as 2. Creatinine has been as high as 6.2 however a month and a half ago when he was previously admitted to [facility] and then transferred to [place] for further management. He left AMA from that admission and did not to get established with a family practice physician assistant. Creatinine this admission is higher than baseline but but still elevated at 4.2. BUN elevated. Patient admitted to medicine for further management of his suspected CHF exacerbation, acute worsening of kidney failure, and complex comorbidities. After arriving to the floor, he states he is having a hard time with urine output, has requested a Abebe catheter. Review of systems, he denies chest pain, nausea, vomiting. States he is more tired than usual. States he feels short of breath and generally does not feel well. Denies increased confusion. No increased bruising, fever, weeping of his legs. Hospital Course Hospital Course Hospital Course: 81-year-old male with multiple comorbidities admitted for CHF exacerbation, exacerbation of chronic respiratory failure, and suspected acute on chronic kidney failure.? Responded well to diuresis initially with improvement in creatinine to 3.7 however creatinine went back up to 4.2. On further evaluation with kidney labs, concerned that this is more or less his baseline range and progression of chronic kidney disease. Patient truly needs to see a family practice physician assistant, we have an outpatient appointment for him on 04/04/2022 at 1 PM. As he is on stable oxygen requirement, hemodynamically stable, tolerating meds for his diabetes and CHF, is meeting criteria for us to discharge for further management in the outpatient setting. He is at his baseline level of function, spends most of his day in the bedside chair, ambulating to the bathroom as needed. Tolerating good p.o. intake and able to meet ADLs with eating. Would benefit from home health, will be set up with [facility] at discharge. Problems during hospitalization managed Acute on chronic hypoxemic respiratory failure Acute on chronic CHF (diastolic) Volume overload - responding to Bumex. Appears euvolemic at this time. Will resume home regimen of Bumex once daily. Echo again shows normal left ventricular ejection fraction. Given chronic lung disease, concern patient has right-sided heart failure. Hard to visualize on echocardiograms given body habitus. - cardiology consulted, appreciate recs during admission. We will have close follow-up with him in the outpatient setting. - supplemental O2, goal sats >90%, tolerating 3 to 4 L (his baseline). Inhalers continued from home. YENIFER on C
--- NOTE | 2022-04-04 10:57 | SW/DCPLANNER ---
Addendum entered by Tracy Huber 04/05/22 09:25: [facility] have refused this patient for home health services. [facility] is willing to accept this patient once he has a follow up appointment with Dr Garay. I called and spoke with Sarah at Dr Garay office this AM and changed patient's follow up appointment to 04/08/22 at 11:30. Sarah will call and inform patient. I called and informed Libby donovan/ [facility] and she stated once patient follows up they will start services on 04/08 or 04/09. Addendum entered by Tracy Huber 04/04/22 13:07: [facility] is not able to start services for this patient due to not having a PCP. Libby donovan/ replaced by [facility] stated they would be willing to accept after initial follow up appointment with Dr Garay next week 04/10. I have faxed patient information/order to [facility]. Original Note: PT/OT evaluated this patient and recommended placement at time of discharge. Patient has refused placement at this time. Patient is agreeable to home health services at time of discharge and prefers [facility]. The plan for this patient is to discharge home today and patient information/order has been faxed to [facility].
[2022-04-04 11:05] VITALS: BP 122/51; PULSE 73; RESP 18; TEMP 36.6; O2SAT 96
[2022-04-04 12:23] LABS: POC Glucose,Bedside 155 (70-110)
--- NOTE | 2022-04-05 10:44 | CARE MANAGER ---
Spoke with patient for post-discharge follow-up phone call, she states that he is doing well and has no needs/issues.
== END 2022-04-04 12:49 | disposition home health service (06) | DRG 682 ==
LOC: ER 16:40 → 2ND 16:56
PROVIDERS: Admitting Provider Internal Medicine Adolescent Medicine; Emergency Provider Emergency Medicine; PCP Internal Medicine Adolescent Medicine; Visit Provider Internal Medicine Adolescent Medicine
DX: N17.9 Acute kidney failure, unspecified (principal); I50.33 Acute on chronic diastolic (congestive) heart failure; J96.22 Acute and chronic respiratory failure with hypercapnia; I13.0 Hypertensive heart and chronic kidney disease with heart failure and stage 1 through stage 4 chronic kidney disease, or unspecified chronic kidney disease; J96.11 Chronic respiratory failure with hypoxia; I48.20 Chronic atrial fibrillation, unspecified; N18.4 Chronic kidney disease, stage 4 (severe); E11.22 Type 2 diabetes mellitus with diabetic chronic kidney disease; J44.9 Chronic obstructive pulmonary disease, unspecified; Z95.810 Presence of automatic (implantable) cardiac defibrillator; Z79.4 Long term (current) use of insulin; I50.82 Biventricular heart failure; D63.1 Anemia in chronic kidney disease; I87.2 Venous insufficiency (chronic) (peripheral); E66.9 Obesity, unspecified; Z68.38 Body mass index [BMI] 38.0-38.9, adult; I25.10 Atherosclerotic heart disease of native coronary artery without angina pectoris; I25.5 Ischemic cardiomyopathy; I25.118 Atherosclerotic heart disease of native coronary artery with other forms of angina pectoris
CPT/HCPCS: 36415; 71045; 80048; 80053; 81001; 82306; 82962; 83735; 83880; 83970; 84100; 84484; 85014; 85018; 85025; 85610; 85730; 86850; 93308; 94640; 94760; 94761; 97110; 97162; 97166; 99285; C9803; P9016; P9047; U0003; U0005

== ENCOUNTER → 2022-05-08 14:10 | Outpatient (CLI) | payer MEDICARE, SELFPAY ==
[2022-05-08 18:24] LABS: Basophils % 0.4 % (0.1-2.0); Eosinophils # 0.2 K/mm3 (0.0-0.4); Eosinophils % 2.2 % (0.1-12.0); Hematocrit 31.6 % (42.0-52.0); Hemoglobin 9.7 g/dL (14.1-18.0); Lymphocytes # 0.9 K/mm3 (0.7-4.5); Lymphocytes % 11.8 % (10-50); Mean Corpuscular HGB Conc 30.7 g/dL (31.8-35.4); Mean Corpuscular Hemoglobin 25.6 pg (27.0-31.2); Mean Corpuscular Volume 83.5 fl (80-94); Mean Platelet Volume 8.1 fl (7.4-10.4); Monocytes # 0.3 K/mm3 (0.1-1.0); Monocytes % 4.2 % (1.7-9.3); Neutrophils # 5.9 K/mm3 (1.8-7.8); Neutrophils % 81.4 % (37.0-80.0); Platelet Count 289 K/mm3 (142-424); Red Blood Count 3.79 M/mm3 (4.60-6.20); Red Cell Distribution Width 18.7 % (11.5-17.5); White Blood Count 7.3 K/mm3 (4.8-10.8)
[2022-05-08 18:31] LABS: Chloride 99 mmol/L (98-107); Potassium 4.4 mmoL/L (3.5-5.1); Sodium 138 mmol/L (136-145)
[2022-05-08 18:34] LABS: Alanine Aminotransferase 12 U/L (12-78); Albumin Level 2.9 g/dl (3.5-5.0); Alkaline Phosphatase 117 U/L (38-126); Anion Gap 15.4 mEq/L (5-15); Aspartate Amino Transferase 19 U/L (17-59); Blood Urea Nitrogen 23 mg/dl (9-20); Carbon Dioxide 28 mmol/L (22.0-30.0); Estimated Glomerular Filt Rate 32 ml/min (>60); GFR (African American) 39 ML/MIN (>60); Globulin 2.8 g/dL (1.3-3.2); Total Protein,Serum 5.7 g/dl (6.3-8.2)
[2022-05-08 18:35] LABS: Calcium 8.3 mg/dl (8.4-10.2); Glucose 141 mg/dl (74-100)
[2022-05-08 18:38] LABS: Bilirubin,Total 0.1 mg/dl (0.2-1.3)
[2022-05-08 20:02] LABS: Hemoglobin A1C 6.7 % (4.0-6.0)
== END ==
PROVIDERS: PCP Family Medicine; Visit Provider Family Medicine
DX: E11.22 Type 2 diabetes mellitus with diabetic chronic kidney disease (principal); I10 Essential (primary) hypertension; I50.9 Heart failure, unspecified; N18.4 Chronic kidney disease, stage 4 (severe); Z79.4 Long term (current) use of insulin
CPT/HCPCS: 80053; 83036; 85025

== ENCOUNTER → 2022-06-07 12:11 | Outpatient (CLI) | payer MEDICARE, SELFPAY ==
[2022-06-07 13:02] LABS: Blood Urea Nitrogen 38 mg/dl (9-20); Estimated Glomerular Filt Rate 26 ml/min (>60); GFR (African American) 32 ML/MIN (>60)
== END ==
PROVIDERS: PCP Family Medicine; Visit Provider Family Medicine
DX: R79.89 Other specified abnormal findings of blood chemistry (principal)
CPT/HCPCS: 36415; 82565; 84520

== ENCOUNTER → 2022-07-16 15:30 | Outpatient (CLI) | payer MEDICARE, SELFPAY ==
[2022-07-16 17:32] LABS: Basophils % 0.2 % (0.1-2.0); Eosinophils # 0.1 K/mm3 (0.0-0.4); Eosinophils % 2.2 % (0.1-12.0); Hematocrit 30.2 % (42.0-52.0); Hemoglobin 9.2 g/dL (14.1-18.0); Lymphocytes # 0.8 K/mm3 (0.7-4.5); Mean Corpuscular HGB Conc 30.6 g/dL (31.8-35.4); Mean Corpuscular Hemoglobin 25.3 pg (27.0-31.2); Mean Corpuscular Volume 82.9 fl (80-94); Mean Platelet Volume 8.3 fl (7.4-10.4); Monocytes # 0.3 K/mm3 (0.1-1.0); Monocytes % 5.5 % (1.7-9.3); Neutrophils # 4.6 K/mm3 (1.8-7.8); Platelet Count 241 K/mm3 (142-424); Red Blood Count 3.64 M/mm3 (4.60-6.20); Red Cell Distribution Width 17.5 % (11.5-17.5); White Blood Count 5.9 K/mm3 (4.8-10.8)
[2022-07-16 17:37] LABS: Alanine Aminotransferase 8 U/L (12-78); Albumin Level 2.9 g/dl (3.5-5.0); Alkaline Phosphatase 101 U/L (38-126); Anion Gap 9.1 mEq/L (5-15); Aspartate Amino Transferase 16 U/L (17-59); Bilirubin,Total 0.5 mg/dl (0.2-1.3); Blood Urea Nitrogen 22 mg/dl (9-20); Calcium 7.9 mg/dl (8.4-10.2); Carbon Dioxide 29 mmol/L (22.0-30.0); Chloride 100 mmol/L (98-107); Estimated Glomerular Filt Rate 34 ml/min (>60); GFR (African American) 41 ML/MIN (>60); Globulin 2.9 g/dL (1.3-3.2); Glucose 186 mg/dl (74-100); Potassium 4.1 mmoL/L (3.5-5.1); Sodium 134 mmol/L (136-145); Total Protein,Serum 5.8 g/dl (6.3-8.2)
== END ==
PROVIDERS: PCP Family Medicine; Visit Provider Family Medicine
DX: R30.0 Dysuria (principal); N18.9 Chronic kidney disease, unspecified; I10 Essential (primary) hypertension
CPT/HCPCS: 80053; 85025; 87086

== ENCOUNTER → 2022-08-26 11:37 | Outpatient (CLI) | payer MEDICARE, SELFPAY ==
[2022-08-26 11:52] LABS: Microscopic, Urine URINE MICROSCOPIC (MICROSCOPIC)
[2022-08-26 12:29] LABS: Hematocrit 25.8 % (42.0-52.0); Hemoglobin 8.2 g/dL (14.1-18.0); Mean Corpuscular HGB Conc 31.6 g/dL (31.8-35.4); Mean Corpuscular Volume 79.1 fl (80-94); Platelet Count 339 K/mm3 (142-424); Red Blood Count 3.26 M/mm3 (4.60-6.20); Red Cell Distribution Width 17.5 % (11.5-17.5); White Blood Count 6.4 K/mm3 (4.8-10.8)
[2022-08-26 13:23] LABS: Albumin Level 3.1 g/dl (3.5-5.0); Anion Gap 6.9 mEq/L (5-15); Blood Urea Nitrogen 36 mg/dl (9-20); Calcium 8.1 mg/dl (8.4-10.2); Carbon Dioxide 28 mmol/L (22.0-30.0); Chloride 104 mmol/L (98-107); Estimated Glomerular Filt Rate 29 ml/min (>60); GFR (African American) 35 ML/MIN (>60); Glucose 193 mg/dl (74-100); Phosphorous 4.4 mg/dl (2.5-4.5); Potassium 4.9 mmoL/L (3.5-5.1); Sodium 134 mmol/L (136-145)
[2022-08-26 13:50] LABS: Appearance,Urine SL CLOUDY (Clear); Bilirubin,Urine Negative (Negative); Blood, Urine 1+ (Negative); Color,Urine YELLOW (Yellow); Glucose,Urine (UA) Negative (Negative); Ketones,Urine Negative (Negative); Leukocyte Esterase,Urine 3+ (Negative); Nitrate,Urine Negative (Negative); PH,Urine 5.5 (5.0-8.5); Protein,Urine Negative (Negative); Urobilinogen,Urine 0.2 EU/dl (0.2)
[2022-08-26 14:27] LABS: Creatinine,Urine Random 41 mg/dL (Not Estab.)
[2022-08-26 14:31] LABS: Bacteria,Urine 1+ /lpf; Squamous Epithelial Cell,Urine Occasional #/hpf (0-5); WBC,Urine 20-50 #/hpf (0-3)
== END ==
PROVIDERS: PCP Family Medicine; Visit Provider Internal Medicine Nephrology
DX: N18.30 Chronic kidney disease, stage 3 unspecified (principal); B95.2 Enterococcus as the cause of diseases classified elsewhere; R82.90 Unspecified abnormal findings in urine
CPT/HCPCS: 36415; 80069; 81001; 82570; 84155; 85014; 85018; 85048; 85049; 87086; 87088; 87186

== ENCOUNTER → 2022-09-10 13:38 | Outpatient (CLI) | payer MEDICARE, SELFPAY | PROVIDERS: PCP Family Medicine; Visit Provider Family Medicine | DX: R30.0 Dysuria (principal) | CPT/HCPCS: 87086 ==

== ENCOUNTER 2022-09-24 13:37 | Observation (INO) | payer MEDICARE, SELFPAY ==
[2022-09-24 13:37] VITALS: BP 134/60; PULSE 93; RESP 17; TEMP 36.7; O2SAT 98; BMI 39.1; BMI 39.2
[2022-09-24 13:57] LABS: Chloride 108 mmol/L (98-107)
[2022-09-24 13:58] LABS: Potassium 5.1 mmoL/L (3.5-5.1); Sodium 135 mmol/L (136-145)
[2022-09-24 14:00] LABS: Alanine Aminotransferase 9 U/L (12-78); Alkaline Phosphatase 81 U/L (38-126); Anion Gap 9.1 mEq/L (5-15); Aspartate Amino Transferase 18 U/L (17-59); Bilirubin,Total 0.6 mg/dl (0.2-1.3); Blood Urea Nitrogen 23 mg/dl (9-20); Carbon Dioxide 23 mmol/L (22.0-30.0); Creatinine Clearance Estimated 45 mL/min (50-200); Estimated Glomerular Filt Rate 31 ml/min (>60); GFR (African American) 37 ML/MIN (>60)
[2022-09-24 14:01] LABS: Albumin Level 3.2 g/dl (3.5-5.0); Albumin/Globulin Ratio 1.1 (1.1-1.8); Calcium 8.3 mg/dl (8.4-10.2); Glucose 84 mg/dl (74-100); Total Protein,Serum 6.2 g/dl (6.3-8.2)
[2022-09-24 14:16] LABS: Basophils % 0.3 % (0.1-2.0); Eosinophils # 0.1 K/mm3 (0.0-0.4); Eosinophils % 1.8 % (0.1-12.0); Hematocrit 28.9 % (42.0-52.0); Hemoglobin 8.6 g/dL (14.1-18.0); Lymphocytes # 0.7 K/mm3 (0.7-4.5); Lymphocytes % 14.2 % (10-50); Mean Corpuscular HGB Conc 29.9 g/dL (31.8-35.4); Mean Corpuscular Hemoglobin 24.7 pg (27.0-31.2); Mean Corpuscular Volume 82.8 fl (80-94); Mean Platelet Volume 8.1 fl (7.4-10.4); Monocytes # 0.3 K/mm3 (0.1-1.0); Monocytes % 5.4 % (1.7-9.3); Neutrophils % 78.3 % (37.0-80.0); Platelet Count 212 K/mm3 (142-424); Red Blood Count 3.49 M/mm3 (4.60-6.20); Red Cell Distribution Width 18.8 % (11.5-17.5); White Blood Count 5.1 K/mm3 (4.8-10.8)
--- NOTE | 2022-09-24 14:37 | PC.NURSE ---
WARM BLANKET PROVIDED
--- NOTE | 2022-09-24 15:10 | PC.NURSE ---
Kyra brown rounded on patient
[2022-09-24 15:49] LABS: Microscopic, Urine URINE MICROSCOPIC (MICROSCOPIC)
[2022-09-24 16:10] LABS: Appearance,Urine CLOUDY (Clear); Bilirubin,Urine Negative (Negative); Blood, Urine 1+ (Negative); Color,Urine YELLOW (Yellow); Glucose,Urine (UA) Negative (Negative); Ketones,Urine Negative (Negative); Leukocyte Esterase,Urine 3+ (Negative); Nitrate,Urine Negative (Negative); Protein,Urine TRACE (Negative); Specific Gravity, Urine 1.015 (1.005-1.030); Urobilinogen,Urine 0.2 EU/dl (0.2)
[2022-09-24 16:15] LABS: WBC,Urine 50-100 #/hpf (0-3)
--- NOTE | 2022-09-24 16:34 | HMH.EDGENADL ---
Discharge Plan Disposition Patient Disposition: Admitted as Observation Condition: Fair Chief Complaint: Altered Mental Status Clinical Impressions Clinical Impression: AMS (altered mental status), Pyuria, Mastoiditis, Pulmonary infiltrate Discharge ED Provider: Kuldip Sky General Adult HPI General Chief complaint: Altered Mental Status Stated complaint: AMS Time Seen by Provider: 09/24/22 16:23 Mode of Arrival: EMS Source of Information: EMS Limitations: No Limitations Description of Symptoms (Recalled from ER Triage Doc. by RN): 82 M presents via EMS from home where his family reports 5 days of confusion and weakness. Patient arrives smelling of stale urine, dirty clothing, and decreased conciousness. Patient does answer questions appropriately. Arroused with stimulation. History of Present Illness HPI narrative: Patient states that he is here because his crazy wanted him brought to the emergency room. He says that she is accusing him of saying there are people in the room when they are are not. He says he has recently been treated for an infection in his kidneys by Dr. Garay. Otherwise he has no acute complaints except his back hurts from laying in the bed in the emergency department. Denies URI symptoms. Denies vomiting or diarrhea. Denies dysuria or frequency. Denies fever. Denies chest pain or shortness of breath. states patient has been talking out of his head for 4 days. Related Data Home Medications Medication Instructions Recorded Confirmed oxycodone 30 mg tablet 30 mg PO QIDP PRN PAIN 02/01/21 09/24/22 insulin human U-100 NPH-regulr 30 unit SQ TID Diabetes 03/26/21 09/24/22 70-30 mix 100 unit/mL subcutaneous susp gabapentin 800 mg tablet 800 mg PO TID Pain 01/01/22 09/24/22 ipratropium 0.5 mg-albuterol 3 mg 3 ml inhalation TIDP PRN Dyspnea 02/12/22 09/24/22 (2.5 mg base)/3 mL nebulization soln albuterol sulfate 90 mcg/actuation 2 puff inhalation Q6H PRN SOA 05/08/22 09/24/22 aerosol inhaler (Ventolin HFA) allopurinol 300 mg tablet See Rx Instructions .Route 09/24/22 09/24/22 .COMPLEX High blood pressure fluticasone propionate 115 1 puff inhalation BID Allergic 09/24/22 09/24/22 mcg-salmeterol 21 mcg/actuation rhinitis HFA inhaler (Advair HFA) inhalational spacing device 09/24/22 09/24/22 (Aerovent Plus spacer) tamsulosin 0.4 mg capsule See Rx Instructions .Route 09/24/22 09/24/22 .COMPLEX BPH Previous Rx's Medication Instructions Recorded atorvastatin 40 mg tablet 40 mg PO HS High cholesterol 30 10/20/20 days #30 tabs ferrous sulfate 325 mg (65 mg 325 mg PO DAILY Supplement 30 days 10/20/20 iron) tablet #30 tabs montelukast 10 mg tablet 10 mg PO HS Allergy symptoms 30 10/20/20 days #30 tabs tadalafil 20 mg tablet (Cialis) 20 mg PO DAILY PRN sexual activity 05/08/22 #10 tabs omeprazole 40 mg capsule,delayed 40 mg PO DAILY acid reflux #90 caps 06/10/22 release blood sugar diagnostic (Accu-Chek #100 ea 07/16/22 Guide test strips) metoprolol tartrate 100 mg tablet 100 mg PO BID Hypertension #180 08/12/22 tabs bumetanide 1 mg tablet 1 mg PO DAILY Diuretic #30 tabs 09/09/22 Allergies Allergy/AdvReac Type Severity Reaction Status Date / Time morphine Allergy Severe Swelling Verified 09/10/22 09:05 of Lip/Tongue/Throat [facility] Disclaimer: The information contained in this section may have been updated after the patient was seen, as this information can be updated by other users. Medical History Cardiomyopathy Dyspnea Fatigue HHD (hypertensive heart disease) NYHA class 2 and ACC/AHA stage C acute on chronic systolic congestive heart failure Pacemaker Palpitations Surgical History History of implantable cardioverter-defibrillator (ICD) placement Family History (Reviewed 09/10/22 @ 09:06 by Murtaza Cowan
--- NOTE | 2022-09-24 16:37 | PC.NURSE ---
CLAUDE LERMA at for patient eval
--- NOTE | 2022-09-24 16:40 | XR_ITS ---
PROCEDURE INFORMATION: Exam: XR Chest Exam date and time: 09/24/2022 5:19 PM Age: 82 years old Clinical indication: Other: AMS TECHNIQUE: Imaging protocol: Radiologic exam of the chest. Views: 1 view. Portable AP exam 5:20 p.m.. Two images received to visualize the entire chest. COMPARISON: CR XR CHEST PORTABLE 04/03/2022 8:02 PM FINDINGS: Tubes, catheters and devices: Overlying oxygen tubing and ekg monitor tech electrodes. Lungs: Mild hypoventilation/low lung volumes with subsegmental atelectasis in the lower lungs. Hazy right infrahilar airspace disease, which could be asymmetric edema versus pneumonia. Pleural spaces: Unremarkable. No significant pleural effusion. No pneumothorax. Heart/Mediastinum: Chronic cardiomegaly/enlarged cardiac silhouette. Dual lead left subclavian cardiac pacemaker. Vasculature: Calcified plaques in the aortic arch. Bones/joints: Multiple left posterolateral rib fracture deformities appear likely chronic compared with 04/03/2022.There are spinal degenerative changes, with multilevel disc narrrowing and spondylosis. Acromioclavicular arthritis. Chronic superior scapular bone density/sclerotic lesion of approximately 3.3 cm, versus overlying dystrophic soft tissue calcification, this is unchanged compared with the prior exam. This could be a blastic metastatic lesion/neoplasm or chronic benign bone island. IMPRESSION: 1. Hazy right infrahilar pulmonary airspace disease could be pneumonia or asymmetric pulmonary edema. 2. Chronic cardiomegaly, cardiac pacemaker. 3. Additional nonemergency and chronic findings as above, including multiple old left rib fractures which are incompletely healed, and sclerotic or blastic lesion of the right scapula.
--- NOTE | 2022-09-24 16:40 | CT_ITS ---
PROCEDURE INFORMATION: Exam: CT Head Without Contrast Exam date and time: 09/24/2022 5:01 PM Age: 82 years old Clinical indication: Altered mental status/memory loss; Additional info: AMS TECHNIQUE: Imaging protocol: Computed tomography of the head without contrast. Radiation optimization: All CT scans at this facility use at least one of these dose optimization techniques: automated exposure control; mA and/or kV adjustment per patient size (includes targeted exams where dose is matched to clinical indication); or iterative reconstruction. REPORTING DATA: Count of CT and Cardiac NM exams in prior 12 months: This patient has received 0 known CTs and 0 known cardiac nuclear medicine studies in the 12 months prior to the current study. COMPARISON: HEADWO CT head/brain wo con 03/26/2018 9:55 PM FINDINGS: Brain: No acute intracranial findings. No intracranial hemorrhage. No edema, swelling or mass-effect. There is moderate generalized cerebral atrophy, slightly progressed since the prior study. Some chronic falcine and meningeal calcifications. Minimal basal ganglia calcifications. Mild patchy white matter disease in both cerebral hemispheres, likely chronic microvascular ischemic changes in an 82-year-old, though slightly more prominent compared with 2018. Cerebral ventricles: The ventricles are normal for age. No hydrocephalus. Paranasal sinuses: No acute findings in the visualized sinuses. No significant sinus opacification or air-fluid levels. Minimal ethmoid mucosal thickening. Mastoid air cells: There is a new small right mastoid effusion, with air-fluid level visible in one of the air cells on series 3, image 2. There is worsened partial opacification of left mastoid air cells since the prior CT from 2018. Orbital cavities: No acute intraorbital findings, as visualized. Correlate for history of bilateral lens replacement surgeries, which have occurred in the interval since the prior CT from 2018. Bones/joints: No acute skull fracture. No lytic lesions. 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 This is incompletely imaged in the field of view. No new mass or fluid collection in the interval. Vasculature: There are atherosclerotic calcified plaques in the intracranial carotid and vertebral arteries. IMPRESSION: 1. New bilateral mastoid effusions compared with 03/26/2018, correlate for acute mastoiditis versus effusions of other etiology. 2. Slightly progressed senescent changes, with cerebral atrophy, white matter disease, atherosclerotic disease. 3. There is no CT evidence of intracranial mass, intracranial hemorrhage, or acute infarct. 4. 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 5. Additional nonemergency and chronic findings as above.
--- NOTE | 2022-09-24 16:42 | ECG_ITS ---
APPROVED REPORT Exam: Resting ECG HR:91 bpm ECG Measurements Heart Rate 91 AXES [place] 169 P 21 QRSd 116 QRS 102 QT 400 T 5 QTc 448 Conclusion SINUS RHYTHM RIGHT AXIS DEVIATION [QRS AXIS > 100] LOW QRS VOLTAGE IN PRECORDIAL LEADS [QRS DEFLECTION < 1.0 mV IN CHEST LEADS] MODERATE INTRAVENTRICULAR CONDUCTION DELAY [110+ ms QRS DURATION] MODERATE ST DEPRESSION [0.05+ mV ST DEPRESSION] ABNORMAL ECG UNCONFIRMED REPORT Electronically signed by : Rodrigo Cook MD 09/25/2022 01:37:47
[2022-09-24 17:00] LABS: Barbiturates Screen,Urine Negative ng/ml (<200)
[2022-09-24 17:01] LABS: Benzodiazepines Screen,Urine Negative ng/ml (<200)
[2022-09-24 17:02] LABS: Cannabinoid Screen,Urine Negative ng/ml (<50); Cocaine Screen,Urine Negative ng/ml (<300)
[2022-09-24 17:03] LABS: Methadone Screen,Urine Negative ng/ml (<300); Opiate Screen,Urine Negative ng/ml (<300)
[2022-09-24 17:18] LABS: Amphetamine/Metha Screen,Urine Negative ng/ml (<1000)
--- NOTE | 2022-09-24 17:18 | PC.NURSE ---
One set of blood cultures sent to lab
[2022-09-24 17:24] LABS: Ethyl Alcohol < 10 mg/dl (0-10)
[2022-09-24 17:29] LABS: ABG HCO3 23.4 mmhg (22.0-26.0); ABG Oxygen Saturation 98 % (90-100); ABG PH 7.36 mmol/L (7.35-7.45); ABG PO2 119.8 mmhg (80-100); ABG TCO2 24.7 mmhg (23-27); Allen's Test y; Oxygen 2 %; Source rr
[2022-09-24 17:32] LABS: Phencyclidine Screen,Urine Negative ng/ml (<25)
[2022-09-24 17:36] LABS: Troponin I < 0.01 ng/ml (0.00-0.034)
[2022-09-24 17:44] LABS: Ammonia < 9 umol/L (9-30); Lactic Acid 0.7 mmol/L (0.7-2.1)
--- NOTE | 2022-09-24 17:45 | PC.NURSE ---
covid/flu swab sent to lab
--- NOTE | 2022-09-24 17:54 | PC.NURSE ---
Rounded on pt he's setting up resting in bed, call light @ bs
[2022-09-24 18:45] LABS: Coronavirus 19, PCR Not Detected (NotDetected); Influenza A, PCR Not Detected (NotDetected); Influenza B, PCR Not Detected (NotDetected)
--- NOTE | 2022-09-24 20:04 | PC.NURSE ---
Pt assigned to room 212. Admissions notified of admit
--- NOTE | 2022-09-24 20:15 | PC.NURSE ---
Attempted to call report, nurse is not available at this time. Will call back
[2022-09-24 20:16] LABS: NT Pro Brain Natriuretic Pep. 2030 pg/mL (0-450)
--- NOTE | 2022-09-24 20:29 | PC.NURSE ---
Report to MICHELLE Hussein
[2022-09-24 21:28] VITALS: BP 141/70; PULSE 104; RESP 20; TEMP 36.9; O2SAT 99; BMI 36.3
--- NOTE | 2022-09-24 21:28 | PC.NURSE ---
PT ARRIVED TO FLOOR AT THIS TIME
--- NOTE | 2022-09-24 22:14 | EXP.HP ---
History of Present Illness *Admission Date: 09/24/22 *Reason for visit:: Confusion *History of present illness: Mr. Ellsworth is a 82-year-old male with a past medical history of CHF, CKD, BPH, COPD. He presents to [facility] due to a 5-day history of weakness associated with fevers and chills. He was brought in by family that also reported that the patient appeared confused, but the patient denies. He is able to answer orientation questioning correctly. He is reporting chills and increased frequency of urination and the feeling of incomplete bladder empyting. He reports that he was recently treated for a UTI, but his symptoms never improved. In the ER the patient had a CBC with differential that showed a microcytic anemia, CMP showed creatinine was 2.10, which is around the patient's most recent baseline. CT of the head showed no acute intracranial abnormalities and a mastoid effusion. Cxray showed a right hazy infrahilar pulmonary airspace disease. Urinalysis showed 3 plus leukoesterase, 50-100 WBC, 1 plus blood and was negative for nitrates. In the ER the patient had cultures drawn. He was given Cefepime empirically in the ER. He is noted to have a urine culture performed on The patient was admitted with initial impression: UTI and Pneumonia. He was placed on empiric antibiotic coverage and cultures were drawn. [facility] Disclaimer: The information contained in this section may have been updated after the patient was seen, as this information can be updated by other users. Medical History Cardiomyopathy Dyspnea Fatigue HHD (hypertensive heart disease) NYHA class 2 and ACC/AHA stage C acute on chronic systolic congestive heart failure Pacemaker Palpitations Surgical History History of implantable cardioverter-defibrillator (ICD) placement Family History Other Diabetes No significant family history Social History (Updated 09/24/22 @ 23:42 by Jovita Miranda RN) Smoking Status: Former smoker second hand exposure: No alcohol intake: never counseling provided: provider counseling substance use type: denies use current occupational status: disabled Travel in the last 8 weeks: None household members: spouse housing: house current occupational exposures/hazards: Yes caffeine: No Review of Systems Review of Systems Review of systems:: pertinent systems reviewed and negative unless documented below Constitutional Constitutional: Reports chills and Reports fever(s) Eyes Eyes: Reports system reviewed and no additional complaints, except as documented ENT Ears, Nose, Mouth, and Throat: Reports system reviewed and no additional complaints, except as documented *Cardiovascular Cardiovascular: Reports system reviewed and no additional complaints, except as documented *Respiratory Respiratory: Reports system reviewed and no additional complaints, except as documented *Gastrointestinal Gastrointestinal: Reports system reviewed and no additional complaints, except as documented *Genitourinary Genitourinary: Reports system reviewed and no additional complaints, except as documented *Musculoskeletal Musculoskeletal: Reports muscle weakness Integumentary/Breasts Skin/Breast: Reports system reviewed and no additional complaints, except as documented *Neurologic Neurologic: Reports confusion Psychiatric Psychiatric: Reports confusion Endocrine Endocrine: Reports system reviewed and no additional complaints, except as documented Hematologic/Lymphatic Hematologic/Lymphatic: Reports system reviewed and no additional complaints, except as documented Allergic/Immunologic Allergic/Immunologic: Reports system reviewed and no additional complaints, except as documented Meds Home Medications and Allergies Home Medications Medication
[2022-09-24 22:59] LABS: Procalcitonin 0.275 ng/mL (0.0-2.0)
--- NOTE | 2022-09-24 23:43 | PC.NURSE ---
Admission/hx completed to best of my ability. Pt confused, poor historian.
[2022-09-25] VITALS (8 sets, daily range): BP systolic 122–151; BP diastolic 48–74; PULSE 73–106; RESP 17–20; TEMP 36.3–36.8; O2SAT 2–98; BMI 36.3
--- NOTE | 2022-09-25 01:14 | PC.NURSE ---
notified Shantel with [facility] of vanc consults. states she will put order in
--- NOTE | 2022-09-25 04:59 | PC.NURSE ---
Pt admitted this shift. A&O to name and birthday. Remains on 2L NC, tolerating well. LS diminished. Abebe cath in place draining yellow/cloudy urine. BLE red edematous, scaly. Pt up to chair, call light in reach
--- NOTE | 2022-09-25 07:49 | PC.NURSE ---
IV in right hand noted to infiltrate while vancomycin was running. IV DC'd and cold compress applied.
--- NOTE | 2022-09-25 08:11 | EXP.PHA.CONS ---
Pharmacy Consult Date: 09/25/22 Time: 08:11 Referring provider: JASS Reason for Consult:: PHARMACY CONSULTED TO DOSE AND MANAGE VANCOMYCIN THERAPY FOR VANCOMYCIN SENSITIVE E. FAECALIS UTI Allergies Allergy/AdvReac Type Severity Reaction Status Date / Time morphine Allergy Severe Swelling Verified 09/10/22 09:05 of Lip/Tongue/Throat Home Medications Medication Instructions Recorded Confirmed Type atorvastatin 40 mg tablet 40 mg PO HS High cholesterol 30 10/20/20 09/24/22 Rx days #30 tabs ferrous sulfate 325 mg (65 mg 325 mg PO DAILY Supplement 30 days 10/20/20 09/24/22 Rx iron) tablet #30 tabs montelukast 10 mg tablet 10 mg PO HS Allergy symptoms 30 10/20/20 09/24/22 Rx days #30 tabs oxycodone 30 mg tablet 30 mg PO QIDP PRN PAIN 02/01/21 09/24/22 History insulin human U-100 NPH-regulr 30 unit SQ TID Diabetes 03/26/21 09/24/22 History 70-30 mix 100 unit/mL subcutaneous susp gabapentin 800 mg tablet 800 mg PO TID Pain 01/01/22 09/24/22 History albuterol sulfate 90 mcg/actuation 2 puff inhalation Q6H PRN SOA 05/08/22 09/24/22 History aerosol inhaler (Ventolin HFA) tadalafil 20 mg tablet (Cialis) 20 mg PO DAILY PRN sexual activity 05/08/22 09/24/22 Rx #10 tabs omeprazole 40 mg capsule,delayed 40 mg PO DAILY acid reflux #90 caps 06/10/22 09/24/22 Rx release blood sugar diagnostic (Accu-Chek #100 ea 07/16/22 09/24/22 Rx Guide test strips) metoprolol tartrate 100 mg tablet 100 mg PO BID Hypertension #180 08/12/22 09/24/22 Rx tabs bumetanide 1 mg tablet 1 mg PO DAILY Diuretic #30 tabs 09/09/22 09/24/22 Rx allopurinol 300 mg tablet See Rx Instructions .Route 09/24/22 09/24/22 History .COMPLEX High blood pressure fluticasone propionate 115 1 puff inhalation BID Allergic 09/24/22 09/24/22 History mcg-salmeterol 21 mcg/actuation rhinitis HFA inhaler (Advair HFA) inhalational spacing device 09/24/22 09/24/22 History (Aerovent Plus spacer) tamsulosin 0.4 mg capsule 0.4 mg PO DAILY Prostate 09/24/22 09/25/22 History New Prescriptions to Start Prescriptions: Height: 1.7 m Weight: 105.233 kg Laboratory Results:: Laboratory Results - last 24 hr 09/24/22 13:47: WBC 5.1, RBC 3.49 L, Hgb 8.6 L, Hct 28.9 L, MCV 82.8, MCH 24.7 L, MCHC 29.9 L, RDW 18.8 H, Plt Count 212, MPV 8.1, Neut % (Auto) 78.3, Lymph % (Auto) 14.2, [place] % (Auto) 5.4, Eos % (Auto) 1.8, Baso % (Auto) 0.3, Neut # (Auto) 4.0, Lymph # (Auto) 0.7, [place] # (Auto) 0.3, Eos # (Auto) 0.1, Baso # (Auto) 0.0 09/24/22 13:47: Sodium 135 L, Potassium 5.1, Chloride 108 H, Carbon Dioxide 23, Anion Gap 9.1, BUN 23 H, Creatinine 2.10 H, Estimated Creat Clear 45, Estimated GFR 31 L, Est GFR ( Amer) 37 L, Glucose 84, Calcium 8.3 L, Total Bilirubin 0.6, AST 18, ALT 9 L, Alkaline Phosphatase 81, Total Protein 6.2 L, Albumin 3.2 L, Globulin 3.0, Albumin/Globulin Ratio 1.1 09/24/22 13:47: Plasma/Serum Alcohol < 10 09/24/22 13:47: Troponin I < 0.01 09/24/22 13:47: NT-Pro-B Natriuret Pep 2030 H 09/24/22 13:47: Procalcitonin 0.275 09/24/22 15:32: Urine Color Yellow, Urine Appearance Cloudy, Urine pH 6.0, Ur Specific [place] 1.015, Urine Protein Trace, Urine Glucose (UA) Negative, Urine Ketones Negative, Urine Blood 1+, Urine Nitrate Negative, Urine Bilirubin Negative, Urine Urobilinogen 0.2, Ur Leukocyte Esterase 3+ A, Urine RBC 5-10, Urine WBC 50-100, Urine Bacteria None 09/24/22 15:32: Urine Opiates Screen Negative, Urine Methadone Screen Negative, Ur Barbituates Screen Negative, Ur Phencyclidine Scrn Negative, Ur Amphetamines Screen Negative, U Benzodiazepines Scrn Negative, Urine Cocaine Screen Negative, U Marijuana (THC) Screen Negative 09/24/22 16:40: Specimen Source rr, O2 % 2, ABG pH 7.36, ABG pCO2 42.0, ABG pO2 119.8 H, ABG HCO3 23.4, ABG Total CO2 24.7, ABG O2 Saturation 98, ABG Base Excess -2.0, Trace Test y 09/24/22 17:18: Lactate 0.7 09/24/22 17:18: Ammonia < 9 L 09/24/22 17:44: SARS-CoV-2 (PCR) Not detected, Influenza A Untype
--- NOTE | 2022-09-25 08:32 | HMH.PHAINT1 ---
Pharmacy Intervention Comments: Reconciled patient's home medications using pharmacy fill history.
[2022-09-25 09:30] LABS: Basophils % 0.3 % (0.1-2.0); Eosinophils # 0.1 K/mm3 (0.0-0.4); Eosinophils % 1.7 % (0.1-12.0); Hematocrit 33.5 % (42.0-52.0); Hemoglobin 9.1 g/dL (14.1-18.0); Lymphocytes # 0.8 K/mm3 (0.7-4.5); Lymphocytes % 11.7 % (10-50); Mean Corpuscular HGB Conc 27.1 g/dL (31.8-35.4); Mean Corpuscular Hemoglobin 23.8 pg (27.0-31.2); Mean Corpuscular Volume 87.8 fl (80-94); Mean Platelet Volume 7.5 fl (7.4-10.4); Monocytes # 0.4 K/mm3 (0.1-1.0); Monocytes % 4.8 % (1.7-9.3); Neutrophils # 5.8 K/mm3 (1.8-7.8); Neutrophils % 81.5 % (37.0-80.0); Platelet Count 219 K/mm3 (142-424); Red Blood Count 3.82 M/mm3 (4.60-6.20); White Blood Count 7.2 K/mm3 (4.8-10.8)
[2022-09-25 09:51] LABS: Alanine Aminotransferase 10 U/L (12-78); Albumin Level 3.4 g/dl (3.5-5.0); Albumin/Globulin Ratio 1.1 (1.1-1.8); Alkaline Phosphatase 92 U/L (38-126); Anion Gap 15.2 mEq/L (5-15); Aspartate Amino Transferase 19 U/L (17-59); Bilirubin,Total 0.7 mg/dl (0.2-1.3); Blood Urea Nitrogen 24 mg/dl (9-20); Calcium 8.3 mg/dl (8.4-10.2); Carbon Dioxide 21 mmol/L (22.0-30.0); Chloride 107 mmol/L (98-107); Creatinine Clearance Estimated 42 mL/min (50-200); Estimated Glomerular Filt Rate 31 ml/min (>60); GFR (African American) 37 ML/MIN (>60); Globulin 3.2 g/dL (1.3-3.2); Glucose 70 mg/dl (74-100); Potassium 5.2 mmoL/L (3.5-5.1); Sodium 138 mmol/L (136-145); Total Protein,Serum 6.6 g/dl (6.3-8.2)
[2022-09-25 11:55] LABS: POC Glucose,Bedside 136 (70-110)
[2022-09-25 17:28] LABS: POC Glucose,Bedside 149 (70-110)
--- NOTE | 2022-09-25 20:01 | PC.NURSE ---
Patient up to chair for all of shift. VS stable and patient weaned from 2LNC to room air. Urine displays sediment in tube when draining. 3 loose stools noted. diarrhea panel ordered per written protocol.
--- NOTE | 2022-09-25 20:33 | EXP.ACUTE.PN ---
Subjective *Date: 09/25/22 *Time: 16:33 Interval history: Patient doing much better today. Alert and oriented. In bedside chair. Eating well. Stable on room air. No chest pain or confusion or shortness of breath. Overall feels better. afebrile. Medical Exam Vital signs and Labs for Last 24 Hours: Vital Signs Temp Pulse Pulse Resp BP Pulse Ox 09/25/22 20:00 97.9 F 79 18 122/56 L 96 09/25/22 15:41 97.4 F L 84 17 142/48 H 96 09/25/22 08:41 2 L 09/25/22 11:45 77 18 09/25/22 11:24 97.9 F 73 18 132/64 96 09/25/22 08:00 98.2 F 103 H 18 148/73 H 97 09/25/22 04:00 97.7 F 97 H 18 151/73 H 97 09/25/22 00:00 98.1 F 106 H 20 134/74 98 09/24/22 21:28 98.4 F 104 H 20 141/70 H 99 Intake and Output 09/25/22 09/25/22 09/25/22 07:59 15:59 23:59 Intake Total 360 / 720 360 / 720 Output Total 200 / 1000 800 / 1000 0 / 1000 Balance -200 / -280 -440 / -280 360 / -280 Intake: Intake, Oral Amount 360 / 720 360 / 720 Output: Output, Urine Amount 200 / 1000 800 / 1000 0 / 1000 Other: Number of Unmeasured Voids 0 1 0 Number of Bowel Movements 1 1 Weight 105.233 kg 105.233 kg Patient Weight 09/25/22 23:59 Weight 105.233 kg Laboratory Results - last 24 hr 09/24/22 13:47: Procalcitonin 0.275 09/25/22 09:09: WBC 7.2 D, RBC 3.82 L, Hgb 9.1 L, Hct 33.5 L, MCV 87.8, MCH 23.8 L, MCHC 27.1 L, RDW 18.0 H, Plt Count 219, MPV 7.5, Neut % (Auto) 81.5 H, Lymph % (Auto) 11.7, [place] % (Auto) 4.8, Eos % (Auto) 1.7, Baso % (Auto) 0.3, Neut # (Auto) 5.8, Lymph # (Auto) 0.8, [place] # (Auto) 0.4, Eos # (Auto) 0.1, Baso # (Auto) 0.0 09/25/22 09:09: Sodium 138, Potassium 5.2 H, Chloride 107, Carbon Dioxide 21 L, Anion Gap 15.2 H, BUN 24 H, Creatinine 2.10 H, Estimated Creat Clear 42, Estimated GFR 31 L, Est GFR ( Amer) 37 L, Glucose 70 L, Calcium 8.3 L, Total Bilirubin 0.7, AST 19, ALT 10 L, Alkaline Phosphatase 92, Total Protein 6.6, Albumin 3.4 L, Globulin 3.2, Albumin/Globulin Ratio 1.1 09/25/22 11:46: POC Glucose 136 H 09/25/22 17:18: POC Glucose 149 H I & O for Labs for Last 24 Hours: Intake & Output 09/22/22 09/23/22 09/24/22 09/25/22 23:59 23:59 23:59 23:59 Intake Total 720 / 720 Output Total 1000 / 1000 Balance -280 / -280 Weight 105.233 kg 105.233 kg Microbiology Reports for the Last 24 Hours: Microbiology 09/24/22 15:32 Urine,Catheterized Urine Culture - Preliminary NO GROWTH AFTER 24 HOURS Head: Present atraumatic and normocephalic ENT: Present mucous membranes moist Comment:: Poor dentition Neck: Present normal inspection Respiratory: Present decreased breath sounds and diminished air movement; Absent wheezes or crackles Cardiac: Present Reg Rate and Rhythm, S1/S2 and pedal pulses present (diminished) GI: Present soft and distention; Absent tenderness, guarding or rebound Rectal (male): Present deferred (male): Present normal inspection (escobar in place) Extremities: Present edema (woody bilateral lymphedema with scale build up) Skin: Present intact; Absent cyanosis Comment:: woody BLE edema, minimal weeping Neuro: Present Cranial Nerve 2-12 Intact, alert and oriented x 3 Assessment and Plan *Assessment and plan (1) UTI (urinary tract infection): Status: Acute Category: Medical Code(s): N39.0 - Urinary tract infection, site not specified (2) Pneumonia: Status: Acute Category: Medical Code(s): J18.9 - Pneumonia, unspecified organism (3) CKD (chronic kidney disease): Status: Acute Category: Medical Code(s): N18.9 - Chronic kidney disease, unspecified (4) CHF (congestive heart failure): Status: Acute Category: Medical Code(s): I50.9 - Heart failure, unspecified (5) BPH (benign prostatic hyperplasia): Status: Acute Category: Medical Code(s): N40.0 - Benign prostatic hyperplasia without lower
[2022-09-25 21:58] LABS: POC Glucose,Bedside 156 (70-110)
[2022-09-26] VITALS: BP 137/67; PULSE 78; RESP 20; TEMP 36.8; O2SAT 96
[2022-09-26 04:00] VITALS: BP 127/56; PULSE 65; RESP 18; TEMP 36.8; O2SAT 99; BMI 36.4
[2022-09-26 06:47] LABS: Monocytes # 0.4 K/mm3 (0.1-1.0)
[2022-09-26 06:56] LABS: Chloride 106 mmol/L (98-107); Potassium 4.6 mmoL/L (3.5-5.1); Sodium 135 mmol/L (136-145)
[2022-09-26 06:58] LABS: Alanine Aminotransferase 9 U/L (12-78); Aspartate Amino Transferase 16 U/L (17-59); Blood Urea Nitrogen 35 mg/dl (9-20); Creatinine Clearance Estimated 32 mL/min (50-200); Estimated Glomerular Filt Rate 23 ml/min (>60); GFR (African American) 28 ML/MIN (>60)
[2022-09-26 06:59] LABS: Albumin Level 3.2 g/dl (3.5-5.0); Albumin/Globulin Ratio 1.1 (1.1-1.8); Alkaline Phosphatase 72 U/L (38-126); Anion Gap 11.6 mEq/L (5-15); Bilirubin,Total 0.4 mg/dl (0.2-1.3); Carbon Dioxide 22 mmol/L (22.0-30.0); Glucose 125 mg/dl (74-100); Magnesium 2.1 mg/dl (1.6-2.3); Total Protein,Serum 6.2 g/dl (6.3-8.2)
[2022-09-26 07:02] LABS: Basophils % 0.3 % (0.1-2.0); Eosinophils # 0.1 K/mm3 (0.0-0.4); Eosinophils % 2.3 % (0.1-12.0); Lymphocytes # 1.1 K/mm3 (0.7-4.5); Lymphocytes % 19.6 % (10-50); Mean Corpuscular HGB Conc 28.5 g/dL (31.8-35.4); Mean Corpuscular Hemoglobin 24.1 pg (27.0-31.2); Mean Corpuscular Volume 84.7 fl (80-94); Monocytes % 6.1 % (1.7-9.3); Neutrophils # 4.1 K/mm3 (1.8-7.8); Neutrophils % 71.7 % (37.0-80.0); Platelet Count 231 K/mm3 (142-424); Red Blood Count 3.31 M/mm3 (4.60-6.20); Red Cell Distribution Width 18.6 % (11.5-17.5); White Blood Count 5.7 K/mm3 (4.8-10.8)
[2022-09-26 07:05] LABS: POC Glucose,Bedside 127 (70-110)
[2022-09-26 07:36] VITALS: BP 120/64; PULSE 69; RESP 18; TEMP 36.4; O2SAT 94
--- NOTE | 2022-09-26 09:50 | EXP.ACUTE.PN ---
Subjective *Date: 09/26/22 *Time: 09:50 Interval history: No issues overnight. No concerns or complaints. Medical Exam Vital signs and Labs for Last 24 Hours: Vital Signs Temp Pulse Pulse Resp BP Pulse Ox 09/26/22 07:36 97.5 F L 69 18 120/64 94 L 09/26/22 04:00 98.3 F 65 18 127/56 L 99 09/26/22 00:00 98.2 F 78 20 137/67 96 09/25/22 20:00 97.9 F 79 18 122/56 L 96 09/25/22 15:41 97.4 F L 84 17 142/48 H 96 09/25/22 11:45 77 18 09/25/22 11:24 97.9 F 73 18 132/64 96 Intake and Output 09/25/22 09/26/22 09/26/22 23:59 07:59 15:59 Intake Total 360 / 720 240 / 240 Output Total 0 / 1000 200 / 200 0 / 200 Balance 360 / -280 -200 / 40 240 / 40 Intake: Intake, Oral Amount 360 / 720 240 / 240 Output: Output, Urine Amount 0 / 1000 200 / 200 0 / 200 Other: Number of Unmeasured Voids 0 0 1 Number of Bowel Movements 1 Weight 105.29 kg Patient Weight 09/26/22 23:59 Weight 105.29 kg Laboratory Results - last 24 hr 09/25/22 09:09: Sodium 138, Potassium 5.2 H, Chloride 107, Carbon Dioxide 21 L, Anion Gap 15.2 H, BUN 24 H, Creatinine 2.10 H, Estimated Creat Clear 42, Estimated GFR 31 L, Est GFR ( Amer) 37 L, Glucose 70 L, Calcium 8.3 L, Total Bilirubin 0.7, AST 19, ALT 10 L, Alkaline Phosphatase 92, Total Protein 6.6, Albumin 3.4 L, Globulin 3.2, Albumin/Globulin Ratio 1.1 09/25/22 11:46: POC Glucose 136 H 09/25/22 17:18: POC Glucose 149 H 09/25/22 21:40: POC Glucose 156 H 09/26/22 06:27: POC Glucose 127 H 09/26/22 06:37: WBC 5.7, RBC 3.31 L, Hgb 8.0 L D, Hct 28.0 L, MCV 84.7, MCH 24.1 L, MCHC 28.5 L, RDW 18.6 H, Plt Count 231, MPV 8.0, Neut % (Auto) 71.7, Lymph % (Auto) 19.6, [place] % (Auto) 6.1, Eos % (Auto) 2.3, Baso % (Auto) 0.3, Neut # (Auto) 4.1, Lymph # (Auto) 1.1, [place] # (Auto) 0.4, Eos # (Auto) 0.1, Baso # (Auto) 0.0 09/26/22 06:37: Sodium 135 L, Potassium 4.6, Chloride 106, Carbon Dioxide 22, Anion Gap 11.6, BUN 35 H D, Creatinine 2.70 H D, Estimated Creat Clear 32, Estimated GFR 23 L, Est GFR ( Amer) 28 L D, Glucose 125 H D, Calcium 8.0 L, Magnesium 2.1, Total Bilirubin 0.4, AST 16 L, ALT 9 L, Alkaline Phosphatase 72, Total Protein 6.2 L, Albumin 3.2 L, Globulin 3.0, Albumin/Globulin Ratio 1.1 I & O for Labs for Last 24 Hours: Intake & Output 09/23/22 09/24/22 09/25/22 09/26/22 23:59 23:59 23:59 23:59 Intake Total 720 / 720 240 / 240 Output Total 1000 / 1000 200 / 200 Balance -280 / -280 40 / 40 Weight 105.233 kg 105.233 kg 105.29 kg Microbiology Reports for the Last 24 Hours: Microbiology 09/25/22 12:00 Sputum - Expectorated Sputum Gram Stain - Final 09/24/22 15:32 Urine,Catheterized Urine Culture - Preliminary NO GROWTH AFTER 24 HOURS Assessment and Plan *Assessment and plan (1) UTI (urinary tract infection): Status: Acute Category: Medical Code(s): N39.0 - Urinary tract infection, site not specified (2) Pneumonia: Status: Acute Category: Medical Code(s): J18.9 - Pneumonia, unspecified organism (3) CKD (chronic kidney disease): Status: Acute Category: Medical Code(s): N18.9 - Chronic kidney disease, unspecified (4) CHF (congestive heart failure): Status: Acute Category: Medical Code(s): I50.9 - Heart failure, unspecified (5) BPH (benign prostatic hyperplasia): Status: Acute Category: Medical Code(s): N40.0 - Benign prostatic hyperplasia without lower urinary tract symptoms (6) COPD (chronic obstructive pulmonary disease): Status: Acute Category: Medical Code(s): J44.9 - Chronic obstructive pulmonary disease, unspecified Plan 82-year-old male with past medical history of CKD, CHF, BPH, COPD, DM, Iron Deficiency Anemia presents with a 5 day history of weakness, chills, fevers and confusion. Currently being treated for UTI. Doing better today, remove gisella
[2022-09-26 11:25] LABS: POC Glucose,Bedside 178 (70-110)
[2022-09-26 14:40] VITALS: BMI 36.3
[2022-09-26 15:16] VITALS: BP 113/51; PULSE 61; RESP 18; TEMP 36.4; O2SAT 98
--- NOTE | 2022-09-26 15:34 | PC.NURSE ---
Catheter d/c'd at [address] Bryant Pratt verbal order.
--- NOTE | 2022-09-26 15:54 | EXP.DC.SUM ---
General Admission date:: 09/24/22 Discharge date: 09/26/22 HPI HPI HPI: Mr. Ellsworth is a 82-year-old male with a past medical history of CHF, CKD, BPH, COPD. He presents to [facility] due to a 5-day history of weakness associated with fevers and chills. He was brought in by family that also reported that the patient appeared confused, but the patient denies. He is able to answer orientation questioning correctly. He is reporting chills and increased frequency of urination and the feeling of incomplete bladder empyting. He reports that he was recently treated for a UTI, but his symptoms never improved. In the ER the patient had a CBC with differential that showed a microcytic anemia, CMP showed creatinine was 2.10, which is around the patient's most recent baseline. CT of the head showed no acute intracranial abnormalities and a mastoid effusion. Cxray showed a right hazy infrahilar pulmonary airspace disease. Urinalysis showed 3 plus leukoesterase, 50-100 WBC, 1 plus blood and was negative for nitrates. In the ER the patient had cultures drawn. He was given Cefepime empirically in the ER. He is noted to have a urine culture performed on The patient was admitted with initial impression: UTI and Pneumonia. He was placed on empiric antibiotic coverage and cultures were drawn. Hospital Course Hospital Course Hospital Course: Admitted for UTI and encephalopathy. Patient had Abebe catheter placed and started on the IV antibiotics vancomycin and cefepime with improvement of encephalopathy. Today patient was back to his baseline, no encephalopathy. Abebe catheter removed. Creatinine slightly elevated 2.8 however within his baseline of 2.2. Urine cultures negative growth, patient would like to go home. Discussed risks and benefits of going home on p.o. antibiotics without sensitivities, patient states he still would like to go home and will come back if he needs to get antibiotics changed. Will discharge with follow-up with primary care physician. Exam Data for Last 24 hours Vital signs and Labs for Last 24 Hours: Temp Pulse Resp BP Pulse Ox 97.5 F L 61 18 113/51 L 98 09/26/22 15:16 09/26/22 15:16 09/26/22 15:16 09/26/22 15:16 09/26/22 15:16 Laboratory Results - last 24 hr 09/24/22 15:32: Urine Opiates Screen Negative, Urine Methadone Screen Negative, Ur Barbituates Screen Negative, Ur Phencyclidine Scrn Negative, Ur Amphetamines Screen Negative, U Benzodiazepines Scrn Negative, Urine Cocaine Screen Negative, U Marijuana (THC) Screen Negative 09/25/22 17:18: POC Glucose 149 H 09/25/22 21:40: POC Glucose 156 H 09/26/22 06:27: POC Glucose 127 H 09/26/22 06:37: WBC 5.7, RBC 3.31 L, Hgb 8.0 L D, Hct 28.0 L, MCV 84.7, MCH 24.1 L, MCHC 28.5 L, RDW 18.6 H, Plt Count 231, MPV 8.0, Neut % (Auto) 71.7, Lymph % (Auto) 19.6, [place] % (Auto) 6.1, Eos % (Auto) 2.3, Baso % (Auto) 0.3, Neut # (Auto) 4.1, Lymph # (Auto) 1.1, [place] # (Auto) 0.4, Eos # (Auto) 0.1, Baso # (Auto) 0.0 09/26/22 06:37: Sodium 135 L, Potassium 4.6, Chloride 106, Carbon Dioxide 22, Anion Gap 11.6, BUN 35 H D, Creatinine 2.70 H D, Estimated Creat Clear 32, Estimated GFR 23 L, Est GFR ( Amer) 28 L D, Glucose 125 H D, Calcium 8.0 L, Magnesium 2.1, Total Bilirubin 0.4, AST 16 L, ALT 9 L, Alkaline Phosphatase 72, Total Protein 6.2 L, Albumin 3.2 L, Globulin 3.0, Albumin/Globulin Ratio 1.1 09/26/22 11:17: POC Glucose 178 H I & O for Last 24 hours: Intake & Output 09/23/22 09/24/22 09/25/22 09/26/22 23:59 23:59 23:59 23:59 Intake Total 720 / 720 600 / 600 Output Total 1000 / 1000 200 / 200 Balance -280 / -280 400 / 400 Weight 105.233 kg 105.233 kg 105 kg Microbiology Reports for the Last 24 Hours: Microbiology 09/24/22 15:32 Urine,Catheterized Urine Culture - Preliminary 09/25/22 12:00 Sputum - Expectorated Sputum Gram Stain - Final Constitutional Constitutional: no acute distress, obese and cooperative *Ro
[2022-09-26 23:05] LABS: Neisseria gonorrhoeae, NAA Negative (Negative)
[2022-09-30 16:12] LABS: Body Fluid Culture, Sterile Not indicated. (.); Organism ID Not indicated. (.); Specimen Source Urine (.); Streptococcus pneumoniae Ag Negative (Negative)
--- NOTE | 2022-10-01 13:24 | CARE MANAGER ---
Attempted to contact patient x2 related to hospital discharge. No VM option. MICHELLE Pretty
[2022-10-03 04:21] LABS: Legionella pneumophila Urinary NEGATIVE
== END 2022-09-26 17:14 | disposition home or self-care (01) ==
LOC: ER 15:50 → 2ND 20:10
PROVIDERS: Nurse Practitioner Family; Admitting Provider Internal Medicine Adolescent Medicine; Emergency Provider Emergency Medicine; PCP Family Medicine; Visit Provider Internal Medicine Adolescent Medicine
DX: H70.90 Unspecified mastoiditis, unspecified ear (principal); Z79.899 Other long term (current) drug therapy; J44.9 Chronic obstructive pulmonary disease, unspecified; N40.0 Benign prostatic hyperplasia without lower urinary tract symptoms; N18.9 Chronic kidney disease, unspecified; Z95.0 Presence of cardiac pacemaker; I13.0 Hypertensive heart and chronic kidney disease with heart failure and stage 1 through stage 4 chronic kidney disease, or unspecified chronic kidney disease; J18.9 Pneumonia, unspecified organism; I50.23 Acute on chronic systolic (congestive) heart failure; Z87.891 Personal history of nicotine dependence; E11.22 Type 2 diabetes mellitus with diabetic chronic kidney disease; D50.9 Iron deficiency anemia, unspecified; N39.0 Urinary tract infection, site not specified; Z79.84 Long term (current) use of oral hypoglycemic drugs; Z20.822 Contact with and (suspected) exposure to COVID-19
CPT/HCPCS: G0378; 36415; 51702; 70450; 71045; 80053; 80305; 81001; 82140; 82803; 82962; 83605; 83735; 83880; 84145; 84484; 85025; 87040; 87070; 87086; 87088; 87186; 87205; 87491; 87591; 87899; 93005; 94640; 99285; C9803; J0692; U0003; U0005

== ENCOUNTER → 2022-12-06 09:06 | Outpatient (CLI) | payer MEDICARE, SELFPAY ==
[2022-12-06 09:17] LABS: Microscopic, Urine URINE MICROSCOPIC (MICROSCOPIC)
[2022-12-06 09:48] LABS: Hematocrit 24.3 % (42.0-52.0); Mean Corpuscular HGB Conc 28.7 g/dL (31.8-35.4); Mean Corpuscular Hemoglobin 22.2 pg (27.0-31.2); Mean Corpuscular Volume 77.3 fl (80-94); Platelet Count 320 K/mm3 (142-424); Red Blood Count 3.14 M/mm3 (4.60-6.20); Red Cell Distribution Width 18.2 % (11.5-17.5); White Blood Count 7.3 K/mm3 (4.8-10.8)
[2022-12-06 09:56] LABS: Appearance,Urine CLEAR (Clear); Bilirubin,Urine Negative (Negative); Blood, Urine Negative (Negative); Color,Urine YELLOW (Yellow); Glucose,Urine (UA) Negative (Negative); Ketones,Urine Negative (Negative); Leukocyte Esterase,Urine Negative (Negative); Nitrate,Urine Negative (Negative); PH,Urine 5.5 (5.0-8.5); Protein,Urine Negative (Negative); Urobilinogen,Urine 0.2 EU/dl (0.2)
[2022-12-06 10:08] LABS: Chloride 105 mmol/L (98-107); Potassium 4.7 mmoL/L (3.5-5.1); Sodium 140 mmol/L (136-145)
[2022-12-06 10:09] LABS: Albumin Level 3.1 g/dl (3.5-5.0)
[2022-12-06 10:11] LABS: Anion Gap 13.7 mEq/L (5-15); Blood Urea Nitrogen 35 mg/dl (9-20); Calcium 7.9 mg/dl (8.4-10.2); Carbon Dioxide 26 mmol/L (22.0-30.0); Estimated Glomerular Filt Rate 42 ml/min (>60); GFR (African American) 51 ML/MIN (>60); Glucose 155 mg/dl (74-100); Iron 26 ug/dL (49-181); Phosphorous 3.6 mg/dl (2.5-4.5)
[2022-12-06 10:16] LABS: Creatinine,Urine Random 88 mg/dL (Not Estab.)
[2022-12-06 10:21] LABS: Total Iron Binding Capacity 255 ug/dL (261-462)
[2022-12-06 10:47] LABS: Ferritin 16.7 ng/ml (17.9-464)
== END ==
PROVIDERS: PCP Family Medicine; Visit Provider Internal Medicine Nephrology
DX: N18.32 Chronic kidney disease, stage 3b (principal); D63.1 Anemia in chronic kidney disease
CPT/HCPCS: 36415; 80069; 81001; 82570; 82728; 83540; 83550; 84155; 85014; 85018; 85048; 85049

== ENCOUNTER → 2022-12-09 14:35 | Outpatient (POV) | payer MEDICARE, SELFPAY | PROVIDERS: Visit Provider Internal Medicine Nephrology | DX: Z00.00 Encounter for general adult medical examination without abnormal findings (principal) ==

== ENCOUNTER → 2022-12-30 17:00 | Outpatient (CLI) | payer MEDICARE, SELFPAY ==
[2022-12-30 16:44] LABS: Chloride 102 mmol/L (98-107); Potassium 4.7 mmoL/L (3.5-5.1); Sodium 139 mmol/L (136-145)
[2022-12-30 16:45] LABS: Basophils % 0.2 % (0.1-2.0); Eosinophils # 0.1 K/mm3 (0.0-0.4); Eosinophils % 2.2 % (0.1-12.0); Hematocrit 27.7 % (42.0-52.0); Hemoglobin 7.8 g/dL (14.1-18.0); Lymphocytes # 0.7 K/mm3 (0.7-4.5); Lymphocytes % 11.9 % (10-50); Mean Corpuscular HGB Conc 28.1 g/dL (31.8-35.4); Mean Corpuscular Hemoglobin 21.1 pg (27.0-31.2); Mean Corpuscular Volume 75.2 fl (80-94); Mean Platelet Volume 8.7 fl (7.4-10.4); Monocytes # 0.4 K/mm3 (0.1-1.0); Monocytes % 6.4 % (1.7-9.3); Neutrophils # 4.8 K/mm3 (1.8-7.8); Neutrophils % 79.3 % (37.0-80.0); Platelet Count 358 K/mm3 (142-424); Red Blood Count 3.68 M/mm3 (4.60-6.20); Red Cell Distribution Width 18.1 % (11.5-17.5)
[2022-12-30 16:47] LABS: Anion Gap 15.7 mEq/L (5-15); Blood Urea Nitrogen 46 mg/dl (9-20); Calcium 8.3 mg/dl (8.4-10.2); Carbon Dioxide 26 mmol/L (22.0-30.0); Estimated Glomerular Filt Rate 32 ml/min (>60); GFR (African American) 39 ML/MIN (>60); Glucose 135 mg/dl (74-100)
== END ==
PROVIDERS: PCP Family Medicine; Visit Provider Family Medicine
DX: D63.8 Anemia in other chronic diseases classified elsewhere (principal); I50.32 Chronic diastolic (congestive) heart failure
CPT/HCPCS: 80048; 85025

== ENCOUNTER 2023-01-06 08:45 | Outpatient (CLI) | payer MEDICARE, SELFPAY ==
[2023-01-06 08:58] VITALS: BMI 37.2
[2023-01-06 09:26] LABS: Basophils % 0.1 % (0.1-2.0); Eosinophils # 0.2 K/mm3 (0.0-0.4); Eosinophils % 3.3 % (0.1-12.0); Hematocrit 26.4 % (42.0-52.0); Hemoglobin 7.4 g/dL (14.1-18.0); Lymphocytes # 0.8 K/mm3 (0.7-4.5); Lymphocytes % 12.7 % (10-50); Mean Corpuscular HGB Conc 27.9 g/dL (31.8-35.4); Mean Corpuscular Hemoglobin 21.2 pg (27.0-31.2); Mean Platelet Volume 7.8 fl (7.4-10.4); Monocytes # 0.3 K/mm3 (0.1-1.0); Monocytes % 5.7 % (1.7-9.3); Neutrophils # 4.7 K/mm3 (1.8-7.8); Neutrophils % 78.2 % (37.0-80.0); Platelet Count 264 K/mm3 (142-424); Red Blood Count 3.48 M/mm3 (4.60-6.20); Red Cell Distribution Width 18.2 % (11.5-17.5)
[2023-01-06 09:39] VITALS: BP 159/63; PULSE 80; RESP 18; O2SAT 96
--- NOTE | 2023-01-06 09:40 | PC.NURSE ---
3247-called and left message with deepti linton with about pt's hgb 7.4; faxed results to office also.
[2023-01-06 10:20] VITALS: BP 159/79; PULSE 83; RESP 18; O2SAT 97
== END 2023-01-06 10:20 | disposition home or self-care (01) ==
LOC: INF 08:46
PROVIDERS: PCP Family Medicine; Visit Provider Internal Medicine Nephrology
DX: D50.9 Iron deficiency anemia, unspecified (principal)
CPT/HCPCS: 85025; 96365; J1756

== ENCOUNTER 2023-01-13 08:49 | Outpatient (CLI) | payer MEDICARE, SELFPAY ==
[2023-01-13 08:51] VITALS: BMI 37.2
[2023-01-13 09:30] VITALS: BP 143/68; PULSE 72; RESP 16; TEMP 36.8; O2SAT 100
[2023-01-13 09:41] LABS: Basophils % 0.1 % (0.1-2.0); Eosinophils # 0.2 K/mm3 (0.0-0.4); Eosinophils % 2.5 % (0.1-12.0); Hematocrit 27.2 % (42.0-52.0); Hemoglobin 7.6 g/dL (14.1-18.0); Lymphocytes # 0.8 K/mm3 (0.7-4.5); Lymphocytes % 12.5 % (10-50); Mean Corpuscular HGB Conc 27.9 g/dL (31.8-35.4); Mean Corpuscular Hemoglobin 21.2 pg (27.0-31.2); Mean Corpuscular Volume 75.7 fl (80-94); Mean Platelet Volume 7.6 fl (7.4-10.4); Monocytes # 0.3 K/mm3 (0.1-1.0); Monocytes % 5.1 % (1.7-9.3); Neutrophils % 79.8 % (37.0-80.0); Platelet Count 261 K/mm3 (142-424); Red Cell Distribution Width 19.5 % (11.5-17.5); White Blood Count 6.3 K/mm3 (4.8-10.8)
[2023-01-13 10:35] VITALS: BP 132/69; PULSE 69; RESP 16; TEMP 36.8; O2SAT 100
== END 2023-01-13 10:40 | disposition home or self-care (01) ==
LOC: INF 08:50
PROVIDERS: PCP Family Medicine; Visit Provider Internal Medicine Nephrology
DX: D50.9 Iron deficiency anemia, unspecified (principal)
CPT/HCPCS: 85025; 96365; J1756

== ENCOUNTER 2023-01-20 08:46 | Outpatient (CLI) | payer MEDICARE, SELFPAY ==
[2023-01-20 09:15] VITALS: BP 129/64; PULSE 99; RESP 18; O2SAT 93
[2023-01-20 10:00] VITALS: BP 101/56; PULSE 98; RESP 18; O2SAT 94
== END 2023-01-20 10:00 | disposition home or self-care (01) ==
PROVIDERS: PCP Family Medicine; Visit Provider Internal Medicine Nephrology
DX: D50.9 Iron deficiency anemia, unspecified (principal)
CPT/HCPCS: 96365; J1756

== ENCOUNTER 2023-01-27 08:48 | Outpatient (CLI) | payer MEDICARE, SELFPAY ==
[2023-01-27 09:02] VITALS: BP 134/57; PULSE 83; RESP 18; TEMP 36.6; O2SAT 95
[2023-01-27 09:45] VITALS: BP 132/67; PULSE 77; RESP 18; O2SAT 96
== END 2023-01-27 09:45 | disposition home or self-care (01) ==
LOC: INF 08:49
PROVIDERS: PCP Family Medicine; Visit Provider Internal Medicine Nephrology
DX: D50.9 Iron deficiency anemia, unspecified (principal)
CPT/HCPCS: 96365; J1756

== ENCOUNTER 2023-02-03 09:03 | Outpatient (CLI) | payer MEDICARE, SELFPAY ==
[2023-02-03 09:27] VITALS: BP 153/71; PULSE 81; RESP 18; TEMP 36.6; O2SAT 96
[2023-02-03 10:10] VITALS: BP 151/76; PULSE 83; RESP 18; O2SAT 97
== END 2023-02-03 10:15 | disposition home or self-care (01) ==
LOC: INF 09:04
PROVIDERS: PCP Family Medicine; Visit Provider Internal Medicine Nephrology
DX: N18.32 Chronic kidney disease, stage 3b (principal); D63.1 Anemia in chronic kidney disease; D50.9 Iron deficiency anemia, unspecified
CPT/HCPCS: 96365; J1756

== ENCOUNTER 2023-03-06 07:47 | Observation (INO) | payer MEDICARE, SELFPAY ==
[2023-03-06] VITALS (11 sets, daily range): BP systolic 142–167; BP diastolic 61–85; PULSE 82–92; RESP 16–18; TEMP 36.4–36.6; O2SAT 95–96; BMI 38.7; BMI 34.1
--- NOTE | 2023-03-06 07:50 | ECG_ITS ---
APPROVED REPORT Exam: Resting ECG HR:90 bpm ECG Measurements Heart Rate 90 AXES NH 170 P -6 QRSd 104 QRS -21 QT 354 T 24 QTc 401 Conclusion SINUS RHYTHM WITH OCCASIONAL ECTOPIC PREMATURE COMPLEXES BORDERLINE LEFT AXIS DEVIATION [QRS AXIS < -20] NONSPECIFIC T-WAVE ABNORMALITY BORDERLINE ECG UNCONFIRMED REPORT Electronically signed by : Rodrigo Cook MD 03/06/2023 19:57:15
--- NOTE | 2023-03-06 08:01 | XR_ITS ---
FINAL REPORT CLINICAL HISTORY: Shortness of breath COMPARISON: 09/04/2022 FINDINGS: A single portable view of the chest was obtained. Cardiomegaly is noted. There is mild pulmonary vascular congestion. There is a left subclavian pacer. The mediastinum is within normal limits. Bibasilar opacities may represent atelectasis or pneumonia. There are small pleural effusions. The bony thorax is intact. IMPRESSION: Bibasilar opacities may represent atelectasis or pneumonia. Small bilateral pleural effusions. Mild pulmonary vascular congestion and cardiomegaly. Reviewed, Interpreted and Dictated by Gopi Zhu III, MD Transcribed by Cherelle Martinez Authenticated and [facility]
--- NOTE | 2023-03-06 08:03 | HMH.EDGENADL ---
Discharge Plan Disposition Patient Disposition: Admitted Clinical Impressions Clinical Impression: Acute kidney injury superimposed on chronic kidney disease, Acute dehydration, General weakness Discharge ED Provider: Mell Hunt General Adult HPI General Chief complaint: Shortness of Breath/Dyspnea Stated complaint: Weakness/SOA Time Seen by Provider: 03/06/23 07:54 Mode of Arrival: EMS Source of Information: Patient and EMS Limitations: No Limitations Description of Symptoms (Recalled from ER Triage Doc. by RN): Pt arrives via [facility] ems. Pt c/o shortness of breath for the prior week with associated weakness. Denies fever but c/o chills. Pt wears 2L o2 at baseline. History of Present Illness HPI narrative: This patient is an 82-year-old male arriving via EMS with a history of CHF, sick sinus syndrome status post pacemaker placement, anemia on iron infusions, CKD, COPD intermittently on 2 L nasal cannula, BPH, paroxysmal atrial fibrillation not on anticoagulation given history of GI bleeding, CAD status post PCI, chronic venous stasis dermatitis of the bilateral lower extremities, and obesity presenting to the emergency department for evaluation with concern for generalized weakness and dyspnea on exertion. Patient states that earlier in the week, he had nausea, vomiting, and diarrhea with abdominal cramping. This has resolved, but now he states that he feels so weak that he cannot get up and do things like he should be doing. He denies any other changes, such as fevers, chest pain, abdominal pain, changes in bowel movements, rashes, increasing swelling. He states he is still having good urine output and is compliant with all his home medications. EMS reports that the patient appears to be around his baseline. Related Data Home Medications Medication Instructions Recorded Confirmed oxycodone 30 mg tablet 30 mg PO QIDP PRN PAIN 02/01/21 03/06/23 gabapentin 800 mg tablet 800 mg PO QID Pain 01/01/22 03/06/23 inhalational spacing device 09/24/22 02/10/23 (Aerovent Plus spacer) loratadine 10 mg tablet 10 mg PO DAILY allergies 10/14/22 03/06/23 insulin human U-100 NPH-regulr 40 unit SQ TID Diabetes 12/30/22 03/06/23 70-30 mix 100 unit/mL subcutaneous susp (Novolin 70/30 U-100 Insulin) atorvastatin 40 mg tablet 40 mg PO DAILY High Cholesterol 01/13/23 03/06/23 tamsulosin 0.4 mg capsule 0.4 mg PO DAILY prostate 01/13/23 03/06/23 bumetanide 1 mg tablet 1 mg PO DAILY Fluid 02/03/23 03/06/23 allopurinol 300 mg tablet 300 mg PO DAILY Gout 03/06/23 03/06/23 metoprolol tartrate 100 mg tablet 100 mg PO BID High Blood Pressure 03/06/23 03/06/23 Previous Rx's Medication Instructions Recorded ferrous sulfate 325 mg (65 mg 325 mg PO DAILY Supplement 30 days 10/20/20 iron) tablet #30 tabs tadalafil 20 mg tablet (Cialis) 20 mg PO DAILY PRN sexual activity 05/08/22 #10 tabs omeprazole 40 mg capsule,delayed 40 mg PO DAILY acid reflux #90 caps 06/10/22 release blood sugar diagnostic (Accu-Chek #100 ea 07/16/22 Guide test strips) Allergies Allergy/AdvReac Type Severity Reaction Status Date / Time morphine Allergy Severe Swelling Verified 02/10/23 11:05 of Lip/Tongue/Throat PFSH [facility] Disclaimer: The information contained in this section may have been updated after the patient was seen, as this information can be updated by other users. Medical History (Updated 03/06/23 @ 09:29 by Tammie Bonilla RN) Anemia, iron deficiency Cardiomyopathy Diabetes mellitus type 2 in obese Dyspnea Fatigue GERD (gastroesophageal reflux disease) Heart attack HHD (hypertensive heart disease) History of left heart catheterization NYHA class 2 and ACC/AHA stage C acute on chronic systolic congestive heart failure Pacemaker Palpitations Surgical History (Updated 03/06/23 @ 09:29 by Tammie Bonilla RN) History of appendectomy History of implantable cardioverter-defibrillator (ICD) placement Famil
[2023-03-06 08:07] LABS: Basophils % 0.1 % (0.1-2.0); Eosinophils # 0.1 K/mm3 (0.0-0.4); Eosinophils % 1.1 % (0.1-12.0); Hematocrit 32.1 % (42.0-52.0); Hemoglobin 9.8 g/dL (14.1-18.0); Lymphocytes # 0.7 K/mm3 (0.7-4.5); Lymphocytes % 8.5 % (10-50); Mean Corpuscular HGB Conc 30.6 g/dL (31.8-35.4); Mean Corpuscular Hemoglobin 24.1 pg (27.0-31.2); Mean Corpuscular Volume 78.7 fl (80-94); Mean Platelet Volume 8.3 fl (7.4-10.4); Monocytes # 0.4 K/mm3 (0.1-1.0); Neutrophils # 6.5 K/mm3 (1.8-7.8); Neutrophils % 85.3 % (37.0-80.0); Platelet Count 291 K/mm3 (142-424); Red Blood Count 4.08 M/mm3 (4.60-6.20); Red Cell Distribution Width 20.4 % (11.5-17.5); White Blood Count 7.7 K/mm3 (4.8-10.8)
[2023-03-06 08:13] LABS: MANUAL DIFFERENTIAL MANUAL DIFFERENTIAL (MANUAL DIFF)
[2023-03-06 08:14] LABS: Alanine Aminotransferase 22 U/L (12-78); Albumin Level 3.7 g/dl (3.5-5.0); Albumin/Globulin Ratio 0.9 (1.1-1.8); Alkaline Phosphatase 99 U/L (38-126); Anion Gap 18.1 mEq/L (5-15); Aspartate Amino Transferase 21 U/L (17-59); Bilirubin,Total 0.3 mg/dl (0.2-1.3); Calcium 8.7 mg/dl (8.4-10.2); Carbon Dioxide 19 mmol/L (22.0-30.0); Chloride 98 mmol/L (98-107); Creatinine Clearance Estimated 28 mL/min (50-200); Estimated Glomerular Filt Rate 18 ml/min (>60); GFR (African American) 21 ML/MIN (>60); Globulin 3.9 g/dL (1.3-3.2); Glucose 220 mg/dl (74-100); Lipase 328 U/L (23-300); Potassium 5.1 mmoL/L (3.5-5.1); Sodium 130 mmol/L (136-145); Total Protein,Serum 7.6 g/dl (6.3-8.2)
[2023-03-06 08:15] LABS: Magnesium 2.2 mg/dl (1.6-2.3)
[2023-03-06 08:16] LABS: Blood Urea Nitrogen 84 mg/dl (9-20)
--- NOTE | 2023-03-06 08:16 | PC.NURSE ---
Critical lab called by Justyn Reyez in lab, bun 84, creatinine 3.4. notified.
--- NOTE | 2023-03-06 08:19 | PC.NURSE ---
pt given a urinal and he is aware that he needs to give a urine specimen.
[2023-03-06 08:22] LABS: NT Pro Brain Natriuretic Pep. 603 pg/mL (0-450)
[2023-03-06 08:23] LABS: Coronavirus 19, PCR Not Detected (NotDetected); Influenza A, PCR Not Detected (NotDetected); Influenza B, PCR Not Detected (NotDetected)
[2023-03-06 08:23] LABS: Anisocytosis 1+; Eosinophils % 3 % (0-3); Hypochromasia 1+; Lymphocytes % 6 % (10-50); Monocytes % 5 % (2-9); Neutrophils % 86 % (42-76); Ovalocytes 1+; Platelet Estimate Normal; Total Cells Counted 100
[2023-03-06 09:04] LABS: Troponin I < 0.01 ng/ml (0.00-0.034)
--- NOTE | 2023-03-06 09:26 | HMH.PHAINT1 ---
Pharmacy Intervention Comments: Medication history complete, medications verified with fill history and medication list from 02/10 office visit. - Lennie Olson, PharmD Candidate 2023
--- NOTE | 2023-03-06 09:30 | PC.NURSE ---
pt was calling out in pain, I and Albina Diaz RN at bedside. Pt reports my jessi horses are killing me in my legs . Dr. Hunt notified. No new orders at this time.
--- NOTE | 2023-03-06 09:44 | PC.NURSE ---
DAVIS Carcamo and myself re-adjusted patient in bed for comfort. No other needs at this time. Family at BS, call light within reach
--- NOTE | 2023-03-06 09:57 | PC.NURSE ---
Gave report to Siria Manning RN
--- NOTE | 2023-03-06 10:11 | PC.NURSE ---
med surg techs here to take pt up stair to room 213
--- NOTE | 2023-03-06 10:25 | EXP.HP ---
History of Present Illness *Admission Date: 03/06/23 *Reason for visit:: Dyspnea and worsening weakness. *History of present illness: Mr. Ellsworth is a 82-year-old male with a past medical history of CHF, CKD, BPH, COPD, iron deficient anemia, chronic stasis dermatitis and lymphedema. He was brought to the hospital given worsening weakness and fatigue over the past 2 to 3 days. He presents with his son-in-law and his . He denies fever, chills, nausea, vomiting; though reported some upset stomach earlier in the week. Wears 2 L of oxygen continuous at night, intermittently during the day. He was brought in by EMS. States that he gets around at home in a wheelchair at baseline but has been more weak than normal. Having a hard time getting up and transferring on his own. Denies any other significant symptoms at this time. Reports he recently finished a course of antibiotics about a week ago for weeping in his legs. He sees lymphedema clinic in [place] at . He has been taking his medications for heart failure and diabetes as prescribed. Still having good urine output per his report. Work-up in the ER concerning for YENIFER with creatinine elevated at 3.4 and BUN 84. Baseline BUN 46, creatinine 2. Has persistent anemia but his hemoglobin has improved from 7.9-9.8 in 2 months. Concern for component of hemoconcentration versus improvement given recent outpatient iron infusions. Medicine consulted for admission given patient's comorbidities and finding of YENIFER on CKD. On arrival to the floor, Mr. Ellsworth appears at his baseline. He is very well-known to me as a previous outpatient. He has lost significant weight over the past 12 to 18 months. Legs while still grossly abnormal with some mild weeping are less edematous and swollen than usual. He is afebrile and hemodynamically stable. At baseline mentation. Family at bedside helps answer questions and supplement history. [facility] Disclaimer: The information contained in this section may have been updated after the patient was seen, as this information can be updated by other users. Medical History Anemia, iron deficiency Cardiomyopathy Diabetes mellitus type 2 in obese Dyspnea Fatigue GERD (gastroesophageal reflux disease) Heart attack HHD (hypertensive heart disease) History of left heart catheterization NYHA class 2 and ACC/AHA stage C acute on chronic systolic congestive heart failure Pacemaker Palpitations Surgical History History of appendectomy History of implantable cardioverter-defibrillator (ICD) placement Family History No significant family history Diabetes Social History Smoking Status: Former smoker second hand exposure: No alcohol intake: never counseling provided: provider counseling substance use type: denies use current occupational status: disabled Travel in the last 8 weeks: None household members: spouse housing: house current occupational exposures/hazards: Yes caffeine: No Review of Systems Review of Systems Review of systems (narrative): 14 point review of systems performed, pertinent positives and negatives as per HPI Meds Home Medications and Allergies Home Medications Medication Instructions Recorded Confirmed Type ferrous sulfate 325 mg (65 mg 325 mg PO DAILY Supplement 30 days 10/20/20 03/06/23 Rx iron) tablet #30 tabs oxycodone 30 mg tablet 30 mg PO QIDP PRN PAIN 02/01/21 03/06/23 History gabapentin 800 mg tablet 800 mg PO QID Pain 01/01/22 03/06/23 History tadalafil 20 mg tablet (Cialis) 20 mg PO DAILY PRN sexual activity 05/08/22 03/06/23 Rx #10 tabs omeprazole 40 mg capsule,delayed 40 mg PO DAILY acid reflux #90 caps 06/10/22 03/06/23 Rx release loratadine 10 mg tablet 10 mg PO DAILY allergies 10/14/22 0
--- NOTE | 2023-03-06 11:06 | PC.WOUNDNOTE ---
multiple ulcerations noted to ble. drainage noted.
[2023-03-06 12:14] LABS: POC Glucose,Bedside 192 (70-110)
--- NOTE | 2023-03-06 12:25 | HMH.PTEV ---
Physical Therapy Evaluation Rehab PT IP Evaluation Start: 03/06/23 10:37 Freq: ONCE Status: Active Protocol: Document 03/06/23 12:17 PHORNE (Rec: 03/06/23 12:25 PHORNE [id number]) Subjective/History History History 82 yowm adm to [facility] with YENIFER and CKD exac. He has PMH of CHF, CKD, COPD, DM. He reports he lives with spouse, no wteps to enter the home, he has been usuing a motorized w/ c for all mobility now for sveral mos and has a cane and RW if needed. B LE wounds at baseline currently being treated at an outside facility as outpatient. These wounds are chronic and have been present intermittently for many years due to CVI, CHF, likely PAD. Subjective Subjective Pt c/o feeling weak, but better than the past several days. I just get short of air when I try to do any walking and my knees want to drop out from under me. New diagnosis of cancer in past 12 No months? Rehab PT IP Eval Objective Appearance Patient Behavior Appropriate Patient Orientation Person,Place,Time Difficulty following instructions none Speech Pattern Clear Ambulation Patient Able to Ambulate No Balance Ability to Arise Able, uses arms to help Sitting Balance Steady, safe Standing Balance Steady, wide stance Dynamic Sitting Balance Ability Good Dynamic Standing Balance Ability Fair Transfers Bed Transfer Ability Moderate x 1 (50% assist) Chair Transfer Ability Moderate x 1 (50% assist) Sit to Stand Bed Transfer Ability Moderate x 1 (50% assist) Sit to Stand Chair Transfer Ability Moderate x 1 (50% assist) Rehab PT IP prob,goals,plan Problems Date of Evaluation: 03/06/23 PT IP Problems Bed Mobility,Transfers Rehab Potential Rehab Potential Good Plan PT Intervention Plan Bed Mobility,Transfers,Gait, Therapeutic Exercise PT Plan Frequency Daily Duration LOS Discharge Goals Bed Transfer Ability Minimal x 1 (25% assist) Sit to Stand Chair Transfer Ability Minimal x 1 (25% assist) Ambulation Assistive Device Rolling Walker Ambulation
--- NOTE | 2023-03-06 12:29 | HMH.PTWOUND ---
Rehab Inpt Wound Evaluation Rehab IP Wound Evaluation Start: 03/06/23 11:17 Freq: ONCE Status: Active Protocol: Document 03/06/23 12:25 PHORNE (Rec: 03/06/23 12:29 PHORNE [id number]) Rehab PT Wound Assessment Subjective Subjective 82 yowm adm to [facility] with YENIFER and CKD exac. He has PMH of CHF, CKD, COPD, DM. He reports he lives with spouse, no wteps to enter the home, he has been usuing a motorized w/ c for all mobility now for sveral mos and has a cane and RW if needed. B LE wounds at baseline currently being treated at an outside facility as outpatient. These wounds are chronic and have been present intermittently for many years due to CVI, CHF, likely PAD. Wound Right Lower Leg Wound Type Stasis Ulcer Is This a Chronic Wound Yes Wound Length (cm) 4.0 Wound Width (cm) 3.0 Wound Depth (cm) 0.1 Wound Bed Appearance Beefy Red,Yellow,Eschar Wound Margins Description Indistinct Edema Type Pitting Edema Degree 1+ Query Text:1+ Trace, Barely Detectable, Rebound 15-30 seconds 2+ Moderate, Slight Indentation, Rebound 10-20 seconds 3+ Deep, Deeper Indentation, Rebound > 30 seconds 4+ Very Deep, Rebound > 60 seconds Wound Drainage Description Serosanguineous Drainage Amount Moderate Wound Topical Solution/Irrigant Saline Irrigant Primary Dressing Unna Boot Wound Secondary Dressing Type Gauze Roll/Wrap,Adhering Gauze Roll Wound Debridement Method Gauze Wound Debridement Amount of Tissue Minimal Removed Dressing Change Patient Tolerance Tolerated Well Left Lower Leg Wound Type Stasis Ulcer Is This a Chronic Wound Yes Wound Length (cm) 4.0 Wound Width (cm) 3.0 Wound Depth (cm) 0.1 Wound Bed Appearance Yellow,Eschar Wound Margins Description Indistinct Edema Type Pitting Edema Degree 1+ Query Text:1+ Trace, Barely Detectable, Rebound 15-30 seconds 2+ Moderate, Slight Indentation, Rebound 10-20 seconds 3+ Deep, Deeper Indentation, Rebound > 30 seconds
[2023-03-06 12:34] LABS: Hemoglobin A1C 6.6 % (4.0-6.0)
--- NOTE | 2023-03-06 13:29 | SW/DCPLANNER ---
Addendum entered by Tracy Huber 03/07/23 11:14: Libby donovan/ [facility] stated that services will begin Friday03/09/23 for this patient. Addendum entered by Tracy Huber 03/07/23 08:10: Patient will discharge home today. Patient has used [facility] in the past and would prefer to use this agency again. Patient information order will be faxed to [facility]: I will follow up once patient information/order is reviewed. Original Note: I spoke with this patient regarding plans once medically stable for discharge. PT/OT evaluated patient and recommended SNF level of care at time of discharge. Patient stated that he resides at home w/ his and is not interested in placement. Patient stated that he has received home health in the past and would be willing to have home health once he returns home. Patient is adamant to return home once medically stable for discharge. Discharge date is unknown at this time. I will continue to follow up with patient and MD.
--- NOTE | 2023-03-06 14:00 | HMH.OTEV ---
OT Inpatient Evaluation Rehab OT IP Evaluation Start: 03/06/23 10:37 Freq: ONCE Status: Active Protocol: Document 03/06/23 13:54 [facility] (Rec: 03/06/23 13:[address] [facility] [id number][facility] Rehab OT IP Assessment Subjective History Pt oriented x 2 on arrival. Pt agreeable to engage in therapy evaluation. Pt is an 82 yowm adm to [facility] with YENIFER and CKD exac. He has PMH of CHF, CKD, COPD, DM. He reports he lives with spouse, no steps to enter the home, he has been usuing a motorized w/ c for all mobility now for several months and has a cane and RW if needed. B LE wounds at baseline currently being treated at an outside facility as outpatient. These wounds are chronic and have been present intermittently for many years due to CVI, CHF, likely PAD. Pt also reports his assists him with all ADLs such as dressing and bathing. He is dependent upon her and family for completion of all IADLs. Subjective My knee is really hurting me today. Objective Patient Orientation Person,Birthday Upper Extremity Gross ROM Min Limitation <25% Shoulder ROM Limitations Muscle Weakness Elbow ROM Limitations Muscle Weakness Wrist Limitations of Range of Motion Muscle Weakness Bed Mobility bed mobility-scooting,bed mobility - supine/sit,bed mobility - rolling Assist Level Minimal x 2 (25% assist) Rehab OT IP prob,goals,plan Problems Date of Evaluation: 03/06/23 OT IP Problems Bed Mobility,Transfers,Balance ,Self care,Safety Rehab Potential Rehab Potential Good Equipment Needs Assistive Devices Rolling / Wheeled Walker, Wheelchair Plan OT intervention Plan Bed Mobility,Transfers,Balance ,Self care,Safety,Therapeutic Exercise OT Plan Frequency BID Duration LOS Discharge Goals Bed Mobility Ability Assistance x1 Sit to Stand Chair
[2023-03-06 15:50] LABS: POC Glucose,Bedside 253 (70-110)
--- NOTE | 2023-03-06 15:50 | PC.NURSE ---
PT IS RESTING IN BED. ALERT AND ORIENTED X4. PT'S ONLY COMPLAINT IS LEG CRAMPS. EATING AND DRINKING WELL. PT HAS MULTIPLE ULCERATIONS NOTED TO BLE. PHYSICAL THERAPY WRAPPED BLE WITH UNNA BOOTS. LUNG SOUNDS DIMINISHED. ABDOMEN SOFT/LARGE WITH ACTIVE BOWEL SOUNDS. PT HAD A BOWEL MOVEMENT THIS SHIFT. 2 ASSIST TO GET OOB. WILL CONTINUE TO MONITOR.
[2023-03-06 17:04] LABS: Microscopic, Urine URINE MICROSCOPIC (MICROSCOPIC)
[2023-03-06 17:06] LABS: Appearance,Urine CLEAR (Clear); Bilirubin,Urine Negative (Negative); Blood, Urine TRACE-I (Negative); Color,Urine YELLOW (Yellow); Glucose,Urine (UA) Negative (Negative); Ketones,Urine Negative (Negative); Leukocyte Esterase,Urine Negative (Negative); Nitrate,Urine Negative (Negative); PH,Urine 5.5 (5.0-8.5); Protein,Urine Negative (Negative); Specific Gravity, Urine 1.015 (1.005-1.030); Urobilinogen,Urine 0.2 EU/dl (0.2)
[2023-03-06 17:23] LABS: RBC,Urine Occasional #/hpf (0-3); Squamous Epithelial Cell,Urine Occasional #/hpf (0-5); WBC,Urine Occasional #/hpf (0-3)
[2023-03-06 20:18] LABS: Chloride 104 mmol/L (98-107); Potassium 4.8 mmoL/L (3.5-5.1); Sodium 134 mmol/L (136-145)
[2023-03-06 20:21] LABS: Anion Gap 13.8 mEq/L (5-15); Blood Urea Nitrogen 77 mg/dl (9-20); Calcium 8.6 mg/dl (8.4-10.2); Carbon Dioxide 21 mmol/L (22.0-30.0); Creatinine Clearance Estimated 28 mL/min (50-200); Estimated Glomerular Filt Rate 20 ml/min (>60); GFR (African American) 24 ML/MIN (>60); Glucose 159 mg/dl (74-100)
[2023-03-06 21:28] LABS: POC Glucose,Bedside 165 (70-110)
[2023-03-07 04:00] VITALS: BP 139/74; PULSE 59; RESP 16; TEMP 36.6; O2SAT 97; BMI 34.8
--- NOTE | 2023-03-07 05:03 | PC.NURSE ---
Pt slept well through the night. A & O x4. Pts legs are wrapped. 2L NC. Eating and drinking well. No pain through the night.
[2023-03-07 06:09] LABS: POC Glucose,Bedside 154 (70-110)
[2023-03-07 06:44] LABS: Basophils % 0.3 % (0.1-2.0); Eosinophils # 0.1 K/mm3 (0.0-0.4); Eosinophils % 2.4 % (0.1-12.0); Hematocrit 30.3 % (42.0-52.0); Lymphocytes # 0.6 K/mm3 (0.7-4.5); Lymphocytes % 10.1 % (10-50); Mean Corpuscular Hemoglobin 23.5 pg (27.0-31.2); Mean Platelet Volume 6.9 fl (7.4-10.4); Monocytes # 0.3 K/mm3 (0.1-1.0); Monocytes % 5.1 % (1.7-9.3); Neutrophils # 4.8 K/mm3 (1.8-7.8); Neutrophils % 82.2 % (37.0-80.0); Platelet Count 237 K/mm3 (142-424); Red Blood Count 3.61 M/mm3 (4.60-6.20); Red Cell Distribution Width 19.5 % (11.5-17.5); White Blood Count 5.8 K/mm3 (4.8-10.8)
[2023-03-07 06:51] LABS: Hemoglobin 8.5 g/dL (14.1-18.0)
[2023-03-07 07:02] LABS: Alanine Aminotransferase 12 U/L (12-78); Albumin Level 2.7 g/dl (3.5-5.0); Albumin/Globulin Ratio 0.9 (1.1-1.8); Alkaline Phosphatase 65 U/L (38-126); Anion Gap 15.1 mEq/L (5-15); Aspartate Amino Transferase 21 U/L (17-59); Bilirubin,Total 0.3 mg/dl (0.2-1.3); Blood Urea Nitrogen 74 mg/dl (9-20); Calcium 8.4 mg/dl (8.4-10.2); Carbon Dioxide 16 mmol/L (22.0-30.0); Chloride 107 mmol/L (98-107); Creatinine Clearance Estimated 36 mL/min (50-200); Estimated Glomerular Filt Rate 26 ml/min (>60); GFR (African American) 32 ML/MIN (>60); Globulin 3.1 g/dL (1.3-3.2); Glucose 144 mg/dl (74-100); Magnesium 2.2 mg/dl (1.6-2.3); Potassium 5.1 mmoL/L (3.5-5.1); Sodium 133 mmol/L (136-145); Total Protein,Serum 5.8 g/dl (6.3-8.2)
--- NOTE | 2023-03-07 07:16 | EXP.DC.SUM ---
General Admission date:: 03/06/23 Discharge date: 03/07/23 HPI HPI HPI: Mr. Ellsworth is a 82-year-old male with a past medical history of CHF, CKD, BPH, COPD, iron deficient anemia, chronic stasis dermatitis and lymphedema. He was brought to the hospital given worsening weakness and fatigue over the past 2 to 3 days. He presents with his son-in-law and his . He denies fever, chills, nausea, vomiting; though reported some upset stomach earlier in the week. Wears 2 L of oxygen continuous at night, intermittently during the day. He was brought in by EMS. States that he gets around at home in a wheelchair at baseline but has been more weak than normal. Having a hard time getting up and transferring on his own. Denies any other significant symptoms at this time. Reports he recently finished a course of antibiotics about a week ago for weeping in his legs. He sees lymphedema clinic in [place] at . He has been taking his medications for heart failure and diabetes as prescribed. Still having good urine output per his report. Work-up in the ER concerning for YENIFER with creatinine elevated at 3.4 and BUN 84. Baseline BUN 46, creatinine 2. Has persistent anemia but his hemoglobin has improved from 7.9-9.8 in 2 months. Concern for component of hemoconcentration versus improvement given recent outpatient iron infusions. Medicine consulted for admission given patient's comorbidities and finding of YENIFER on CKD. On arrival to the floor, Mr. Ellsworth appears at his baseline. He is very well-known to me as a previous outpatient. He has lost significant weight over the past 12 to 18 months. Legs while still grossly abnormal with some mild weeping are less edematous and swollen than usual. He is afebrile and hemodynamically stable. At baseline mentation. Family at bedside helps answer questions and supplement history. Hospital Course Hospital Course Hospital Course: Mr. Ellsworth is a 82-year-old male with a past medical history of heart failure preserved ejection fraction, CKD 3/4, BPH, COPD, chronic pain, anemia, chronic lymphedema, who presented to the ER via EMS because of 2 to 3 days of weakness and dyspnea. Found to have YENIFER on presentation in the ER. Discussed case with ER physician, requested admission for gentle fluid hydration, serial monitoring of kidney function, and further management of leg weeping. Medicine agreed to admit for further medical management. Stable on room air at this time. Kidney function has improved. Stable for discharge home. Therapy evaluated, recommend placement however patient is adamant that he is going home. Case management to assist with home health referral. Problems addressed as follows: YENIFER on CKD -Baseline creatinine 2 and BUN 46. Creatinine and BUN elevated at 3.4 and 84 respectively on admission. Gentle hydration overnight, improved creatinine to 2.4 and BUN of 74. Holding nephrotoxic agents. Held diuretic during admission. Given improvement, stable for discharge home. May resume his home diuretic starting tomorrow. Patient having improved p.o. intake. Encouraged to stay well-hydrated. Needs repeat BMP in 1 week Heart failure preserved ejection fraction Hypertension Hyperlipidemia -In setting of YENIFER, held Bumex during admission. Okay to resume tomorrow the day after discharge. Continued his home Lipitor metoprolol. Diabetes: A1c 6.6. Resume home regimen at discharge. Chronic pain: Patient reports rarely taking his medications. Will provide as needed at this time and monitor need over the next 24 hours. Have expressed multiple times on previous visits that patient's medications are not renally dosed specially his gabapentin. He only takes it at night per his report. Strong concern for diversion. Gave recommendations to patient that he discuss with his providers in [place] decreasing his doses. Given patient's chronic kidney disease, his gabapentin is inappropriately dosed per home prescript
[2023-03-07 08:00] VITALS: BP 145/73; PULSE 63; RESP 18; TEMP 36.4; O2SAT 99
[2023-03-07 11:39] LABS: POC Glucose,Bedside 173 (70-110)
--- NOTE | 2023-03-10 14:59 | CARE MANAGER ---
Called and spoke with patient regarding recent discharge. Patient stated that he is doing well, and had no concerns at time of call. I did confirm with Dr. Eaton that patient did not require an antibiotic at time of discharge, due to patient inquiring.
== END 2023-03-07 11:49 | disposition home health service (06) ==
LOC: ER 09:06 → 2ND 13:31
PROVIDERS: Admitting Provider Internal Medicine Adolescent Medicine; Emergency Provider Emergency Medicine; Visit Provider Internal Medicine Adolescent Medicine
DX: I25.118 Atherosclerotic heart disease of native coronary artery with other forms of angina pectoris; I13.0 Hypertensive heart and chronic kidney disease with heart failure and stage 1 through stage 4 chronic kidney disease, or unspecified chronic kidney disease; N17.9 Acute kidney failure, unspecified; I50.23 Acute on chronic systolic (congestive) heart failure; I89.0 Lymphedema, not elsewhere classified; E11.22 Type 2 diabetes mellitus with diabetic chronic kidney disease; N18.4 Chronic kidney disease, stage 4 (severe); Z79.4 Long term (current) use of insulin; I87.2 Venous insufficiency (chronic) (peripheral); J44.9 Chronic obstructive pulmonary disease, unspecified; E66.9 Obesity, unspecified; N40.1 Benign prostatic hyperplasia with lower urinary tract symptoms; R39.11 Hesitancy of micturition; Z79.899 Other long term (current) drug therapy; Z68.31 Body mass index [BMI] 31.0-31.9, adult; D63.1 Anemia in chronic kidney disease
CPT/HCPCS: G0379; 36415; 71045; 80048; 80053; 81001; 82962; 83036; 83690; 83735; 83880; 84484; 85007; 85025; 87636; 93005; 97163; 97166; 97530; 99285; G0378; J1756

== ENCOUNTER → 2023-03-13 23:34 | Outpatient (CLI) | payer MEDICARE, SELFPAY ==
[2023-03-13 16:56] LABS: Basophils % 0.1 % (0.1-2.0); Eosinophils # 0.1 K/mm3 (0.0-0.4); Eosinophils % 0.4 % (0.1-12.0); Hematocrit 33.4 % (42.0-52.0); Hemoglobin 9.5 g/dL (14.1-18.0); Lymphocytes # 0.6 K/mm3 (0.7-4.5); Lymphocytes % 3.5 % (10-50); Mean Corpuscular HGB Conc 28.4 g/dL (31.8-35.4); Mean Corpuscular Hemoglobin 23.4 pg (27.0-31.2); Mean Corpuscular Volume 82.5 fl (80-94); Monocytes # 0.5 K/mm3 (0.1-1.0); Neutrophils # 14.4 K/mm3 (1.8-7.8); Platelet Count 266 K/mm3 (142-424); Red Blood Count 4.05 M/mm3 (4.60-6.20); White Blood Count 15.4 K/mm3 (4.8-10.8)
[2023-03-13 17:00] LABS: MANUAL DIFFERENTIAL MANUAL DIFFERENTIAL (MANUAL DIFF)
[2023-03-13 17:09] LABS: Alanine Aminotransferase 19 U/L (12-78); Albumin Level 3.5 g/dl (3.5-5.0); Alkaline Phosphatase 94 U/L (38-126); Anion Gap 17.3 mEq/L (5-15); Aspartate Amino Transferase 17 U/L (17-59); Bilirubin,Total 0.3 mg/dl (0.2-1.3); Blood Urea Nitrogen 55 mg/dl (9-20); Calcium 8.4 mg/dl (8.4-10.2); Carbon Dioxide 20 mmol/L (22.0-30.0); Chloride 109 mmol/L (98-107); Estimated Glomerular Filt Rate 31 ml/min (>60); GFR (African American) 37 ML/MIN (>60); Globulin 3.6 g/dL (1.3-3.2); Glucose 286 mg/dl (74-100); Potassium 5.3 mmoL/L (3.5-5.1); Sodium 141 mmol/L (136-145); Total Protein,Serum 7.1 g/dl (6.3-8.2)
[2023-03-13 17:15] LABS: NT Pro Brain Natriuretic Pep. 1240 pg/mL (0-450)
[2023-03-13 17:36] LABS: Thyroid Stimulating Hormone 1.83 uIU/mL (0.465-4.68)
[2023-03-13 17:44] LABS: Monocytes % 3 % (2-9); Neutrophils % 92 % (42-76); Total Cells Counted 100
[2023-03-13 17:46] LABS: Hypochromasia 1+; Microcytosis 1+; Platelet Estimate Normal; RBC Morphology Normal
== END ==
PROVIDERS: PCP Family Medicine; Visit Provider Family Medicine
DX: D64.9 Anemia, unspecified (principal); R53.83 Other fatigue; I50.9 Heart failure, unspecified; N18.9 Chronic kidney disease, unspecified
CPT/HCPCS: 80053; 83880; 84443; 85007; 85025

== ENCOUNTER → 2023-05-09 11:34 | Outpatient (CLI) | payer MEDICARE, SELFPAY ==
[2023-05-09 11:42] LABS: Microscopic, Urine URINE MICROSCOPIC (MICROSCOPIC)
[2023-05-09 12:03] LABS: Basophils % 0.1 % (0.1-2.0); Eosinophils # 0.2 K/mm3 (0.0-0.4); Eosinophils % 2.2 % (0.1-12.0); Hematocrit 29.4 % (42.0-52.0); Hemoglobin 8.9 g/dL (14.1-18.0); Lymphocytes # 0.7 K/mm3 (0.7-4.5); Lymphocytes % 10.2 % (10-50); Mean Corpuscular HGB Conc 30.2 g/dL (31.8-35.4); Mean Corpuscular Hemoglobin 24.6 pg (27.0-31.2); Mean Corpuscular Volume 81.6 fl (80-94); Mean Platelet Volume 8.4 fl (7.4-10.4); Monocytes # 0.3 K/mm3 (0.1-1.0); Monocytes % 3.4 % (1.7-9.3); Neutrophils # 6.1 K/mm3 (1.8-7.8); Neutrophils % 84.1 % (37.0-80.0); Platelet Count 310 K/mm3 (142-424); Red Cell Distribution Width 19.2 % (11.5-17.5); White Blood Count 7.3 K/mm3 (4.8-10.8)
[2023-05-09 12:32] LABS: Appearance,Urine CLEAR (Clear); Bilirubin,Urine Negative (Negative); Blood, Urine Negative (Negative); Color,Urine YELLOW (Yellow); Glucose,Urine (UA) TRACE (Negative); Ketones,Urine Negative (Negative); Leukocyte Esterase,Urine Negative (Negative); Nitrate,Urine Negative (Negative); PH,Urine 5.5 (5.0-8.5); Protein,Urine Negative (Negative); Urobilinogen,Urine 0.2 EU/dl (0.2)
[2023-05-09 12:53] LABS: Creatinine,Urine Random 66 mg/dL (Not Estab.)
[2023-05-09 13:29] LABS: Albumin Level 3.6 g/dl (3.5-5.0); Chloride 105 mmol/L (98-107); Sodium 137 mmol/L (136-145)
[2023-05-09 13:32] LABS: Blood Urea Nitrogen 33 mg/dl (9-20); Calcium 8.8 mg/dl (8.4-10.2); Carbon Dioxide 22 mmol/L (22.0-30.0); Estimated Glomerular Filt Rate 39 ml/min (>60); GFR (African American) 47 ML/MIN (>60); Glucose 321 mg/dl (74-100); Phosphorous 4.1 mg/dl (2.5-4.5)
[2023-05-09 13:34] LABS: Bacteria,Urine Trace /lpf; Squamous Epithelial Cell,Urine Occasional #/hpf (0-5)
== END ==
PROVIDERS: PCP Family Medicine; Visit Provider Internal Medicine Nephrology
DX: N18.32 Chronic kidney disease, stage 3b (principal)
CPT/HCPCS: 36415; 80069; 81001; 82570; 84155; 85025

== ENCOUNTER → 2023-05-12 12:54 | Outpatient (POV) | payer MEDICARE, SELFPAY | PROVIDERS: Visit Provider Internal Medicine Nephrology | DX: Z00.00 Encounter for general adult medical examination without abnormal findings (principal) ==